=== PATIENT | male | born 1975 | race Caucasian/White ===

== ENCOUNTER 2017-12-30 16:13 | Emergency (ER) | payer BC, OTHER ==
[2017-12-30] MEDS ORDERED: LIDOCAINE 1% 20 ML MDV ONE (16:48)
--- NOTE | 2017-12-30 17:24 | ER ---
Nurse's Notes [facility] Name: Nikita Bartlett Age: 42 yrs Sex: Male : 1975 Arrival Date: 12/30/2017 Time: 16:17 Bed 8 Private MD: Romero Shelton B Diagnosis: Cutaneous abscess of right axilla Presentation: 12/30 16:21 Presenting complaint: Patient states: Abscess to right axilla for 4 days. Transition of care: patient was not received from another setting of care. Onset of symptoms was December 26, 2017. Risk Assessment: Do you want to hurt yourself or someone else? Patient reports no desire to harm self or others. Initial Sepsis Screen: Does the patient meet any 2 criteria? HR > 90 bpm. Yes. Care prior to arrival: None. 16:21 Method Of Arrival: Ambulatory 16:21 Acuity: OCTAVIO 3 aj 17:00 Initial Sepsis Screen: Does the patient have a suspected source of infection? Yes: Skin sg breakdown/wound If YES to both, name of provider notified: Buddy LARIOS. Triage Assessment: 16:23 General: Appears in no apparent distress. comfortable, Behavior is calm, cooperative, aj appropriate for age. Pain: Complains of pain in right axilla. Neuro: Level of Consciousness is awake, alert, obeys commands, Oriented to person, place, time, situation, Appropriate for age. Respiratory: Airway is patent Respiratory effort is even, unlabored, Respiratory pattern is regular, symmetrical. Derm: Skin is intact, is healthy with good turgor, Skin is pink, warm \T\ dry. normal, Abscess located on right axilla is golf ball sized, has no drainage, is red, is raised. Historical: - Allergies: 16:23 No Known Allergies; aj - Home Meds: 16:23 Janumet oral oral [Active]; aj - PMHx: 16:23 Diabetes - NIDDM; aj - PSHx: 16:23 None; aj - Immunization history:: Last tetanus immunization: < 5 years ago. - Social history:: Smoking status: Patient uses tobacco products, smokes one pack cigarettes per day. - Ebola Screening: : Patient negative for fever greater than or equal to 101.5 degrees Fahrenheit, and additional compatible Ebola Virus Disease symptoms Patient denies exposure to infectious person Patient denies travel to an Ebola-affected area in the 21 days before illness onset No symptoms or risks identified at this time. Screenin:00 Abuse screen: Denies threats or abuse. Denies injuries from another. Nutritional sg screening: No deficits noted. Tuberculosis screening: No symptoms or risk factors identified. Never had TB. Fall Risk None identified. Assessment: 17:00 General: Appears in no apparent distress. comfortable, well groomed, well developed, sg well nourished, Behavior is calm, cooperative, appropriate for age. Pain: Complains of pain in right axilla. Neuro: No deficits noted. Cardiovascular: Heart tones S1 S2 present Capillary refill is brisk in bilateral fingers Patient's skin is warm and dry. Chest pain is denied. Respiratory: Airway is patent Respiratory effort is even, unlabored, Respiratory pattern is regular, symmetrical, Breath sounds are clear. GI: No signs and/or symptoms were reported involving the gastrointestinal system. : No signs and/or symptoms were reported regarding the genitourinary system. EENT: No signs and/or symptoms were reported regarding the EENT system. Derm: Skin is pink, warm \T\ dry. Derm: Abscess located on right axilla is golf ball sized, has no drainage, is hot to touch, is red. Vital Signs: 16:23 BP 166 / 114; Pulse 113; Resp 20; Temp 99.3; Pulse Ox 98% on R/A; Weight 102.51 kg; aj Height 5 ft. 11 in. (180.34 cm); 17:50 BP 142 / 89; Pulse 90; Resp 18; Temp 99.0; Pulse Ox 99% on R/A; Pain 0/10; sg 16:23 Body Mass Index 31.52 (102.51 kg, 180.34 cm) aj ED Course: 16:17 Patient arrived in ED. sb2 16:17 Romero Shelton MD is Private Physician. sb2 16:22 Triage completed. aj 16:23 Arm band placed on left wrist. Patient placed in an exam room. aj 16:26 Buddy Gibson PA is PHCP. jr8 16:26 Kareem Mccann MD is Attending Physician. jr8 16:33 Salvador Whitney RN is Primary Nurse. sg 17:00 Patient has correct armband on for positive identification. Bed in low position. Call sg light in reach. Side rails up X2. Pulse ox on. NIBP on. Warm blanket given. Head of bed elevated. 17:30 Assist provider with I \T\ D: of an abscess on right axilla Set up I\T\D tray. Wound sg packed. iodoform gauze, Patient tolerated well. 17:50 Patient did not have IV access during this emergency room visit. sg Administered Medications: 17:30 Drug: Demerol 50 mg Route: IM; Site: right deltoid; sg 17:30 Drug: Phenergan 25 mg Route: IM; Site: right deltoid; sg 17:30 Drug: Bactrim (160 mg-800 mg (DS) 1 tablet Route: PO; sg Outcome: 17:24 Discharge ordered by MD. lopez 17:50 Discharged to home ambulatory, with family. 17:50 Condition: good 17:50 Discharge instructions given to patient, Instructed on discharge instructions, follow up and referral plans. medication usage, safety practices, wound care, Demonstrated understanding of instructions, follow-up care, medications, wound care, Prescriptions given X 2. 17:53 Patient left the ED. Signatures: Salvador Whitney RN RN Kenna Mcclain RN Kathi Mujica RN RN Buddy Gibson PA PA jrSaniya Mao2
--- NOTE | 2017-12-30 17:24 | EDPHYS ---
Physician Documentation [facility] Name: Nikita Bartlett Age: 42 yrs Sex: Male : 1975 Arrival Date: 12/30/2017 Time: 16:17 Bed 8 Private MD: Romero Shelton B ED Physician Kareem Mccann HPI: 12/30 17:35 This 42 yrs old Male presents to ER via Ambulatory with complaints of Abscess.jr8 17:35 The patient presents with an abscess of the right axilla. Description: The affected jr8 area is moderate sized, well demarcated, draining, erythematous, fluctuant, swollen, tense, warm. Onset: The symptoms/episode began/occurred gradually, 4 day(s) ago. Possible cause(s): unknown. Associated signs and symptoms: The patient has no apparent associated signs or symptoms. Modifying factors: the symptoms are alleviated by nothing, the symptoms are aggravated by pressure, squeezing the lesion and expressing the contents, touching. Severity of symptoms: At their worst the symptoms were moderate, in the emergency department the symptoms are unchanged. The patient has not experienced similar symptoms in the past. The patient has not recently seen a physician. Historical: - Allergies: 16:23 No Known Allergies; aj - Home Meds: 16:23 Janumet oral oral [Active]; aj - PMHx: 16:23 Diabetes - NIDDM; aj - PSHx: 16:23 None; aj - Immunization history:: Last tetanus immunization: < 5 years ago. - Social history:: Smoking status: Patient uses tobacco products, smokes one pack cigarettes per day. - Ebola Screening: : Patient negative for fever greater than or equal to 101.5 degrees Fahrenheit, and additional compatible Ebola Virus Disease symptoms Patient denies exposure to infectious person Patient denies travel to an Ebola-affected area in the 21 days before illness onset No symptoms or risks identified at this time. ROS: 17:35 Eyes: Negative for injury, pain, redness, and discharge, ENT: Negative for injury, jr8 pain, and discharge, Neck: Negative for injury, pain, and swelling, Cardiovascular: Negative for chest pain, palpitations, and edema, Respiratory: Negative for shortness of breath, cough, wheezing, and pleuritic chest pain, Abdomen/GI: Negative for abdominal pain, nausea, vomiting, diarrhea, and constipation, Back: Negative for injury and pain, MS/Extremity: Negative for injury and deformity, Neuro: Negative for headache, weakness, numbness, tingling, and seizure. 17:35 Skin: Positive for abscess, of the right axilla. Exam: 17:35 Eyes: Pupils equal round and reactive to light, extra-ocular motions intact. Lids and jr8 lashes normal. Conjunctiva and sclera are non-icteric and not injected. Cornea within normal limits. Periorbital areas with no swelling, redness, or edema. ENT: Nares patent. No nasal discharge, no septal abnormalities noted. Tympanic membranes are normal and external auditory canals are clear. Oropharynx with no redness, swelling, or masses, exudates, or evidence of obstruction, uvula midline. Mucous membranes moist. Neck: Trachea midline, no thyromegaly or masses palpated, and no cervical lymphadenopathy. Supple, full range of motion without nuchal rigidity, or vertebral point tenderness. No Meningismus. Cardiovascular: Regular rate and rhythm with a normal S1 and S2. No gallops, murmurs, or rubs. Normal PMI, no JVD. No pulse deficits. Respiratory: Lungs have equal breath sounds bilaterally, clear to auscultation and percussion. No rales, rhonchi or wheezes noted. No increased work of breathing, no retractions or nasal flaring. Abdomen/GI: Soft, non-tender, with normal bowel sounds. No distension or tympany. No guarding or rebound. No evidence of tenderness throughout. Back: No spinal tenderness. No costovertebral tenderness. Full range of motion. MS/ Extremity: Pulses equal, no cyanosis. Neurovascular intact. Full, normal range of motion. Neuro: Awake and alert, GCS 15, oriented to person, place, time, and situation. Cranial nerves II-XII grossly intact. Motor strength 5/5 in all extremities. Sensory grossly intact. Cerebellar exam normal. Normal gait. 17:35 Skin: abscess, that is moderate sized, of the right axilla, with drainage, that is purulent, with fluctuance, that is moderate. Vital Signs: 16:23 BP 166 / 114; Pulse 113; Resp 20; Temp 99.3; Pulse Ox 98% on R/A; Weight 102.51 kg; aj Height 5 ft. 11 in. (180.34 cm); 17:50 BP 142 / 89; Pulse 90; Resp 18; Temp 99.0; Pulse Ox 99% on R/A; Pain 0/10; sg 16:23 Body Mass Index 31.52 (102.51 kg, 180.34 cm) aj Procedures: 17:23 I \T\ D: Incision and drainage was performed for an abscess of the right axilla. Prepped jr8 with Betadine, Anesthetized with 8 ml's 1% Lidocaine. Incised with #11 blade. Drained large amount purulent fluid. bloody fluid. Loculations removed. Cultures obtained. Abscess cavity explored. Packed with iodoform gauze, Dressing: sterile 4x4 gauze, the patient tolerated the procedure well. MDM: 16:26 Patient medically screened. [facility] 17:23 Data reviewed: vital signs, nurses notes, lab test result(s), and as a result, I will jr8 discharge patient. Data interpreted: Pulse oximetry: on room air is 98 %. Interpretation: normal. Counseling: I had a detailed discussion with the patient and/or guardian regarding: the historical points, exam findings, and any diagnostic results supporting the discharge/admit diagnosis, lab results, the need for outpatient follow up, a family practitioner, to return to the emergency department if symptoms worsen or persist or if there are any questions or concerns that arise at home. Administered Medications: 17:30 Drug: Demerol 50 mg Route: IM; Site: right deltoid; sg 17:30 Drug: Phenergan 25 mg Route: IM; Site: right deltoid; sg 17:30 Drug: Bactrim (160 mg-800 mg (DS) 1 tablet Route: PO; sg Disposition: 12/31 06:55 Co-signature as Attending Physician, Kareem Mccann MD I agree with the assessment and nishant plan of care. Disposition: 12/30/17 17:24 Discharged to Home. Impression: Cutaneous abscess of right axilla. - Condition is Stable. - Discharge Instructions: Abscess, Incision and Drainage. - Prescriptions for Tylenol- Codeine #3 300-30 mg Oral Tablet - take 2 tablet by ORAL route every 6 hours As needed; 30 tablet. Bactrim DS 800- 160 mg Oral Tablet - take 1 tablet by ORAL route every 12 hours for 10 days; 20 tablet. - Medication Reconciliation Form, Thank You Letter, Antibiotic Education, Prescription Opioid Use form. - Work release form (12/30/17 17:53). jr8 - Follow up: Emergency Department; When: 48 Hours; Reason: Wound Recheck, Recheck today's complaints, Continuance of care, Re-evaluation by your physician. - Problem is new. - Symptoms have improved. Signatures: Dispatcher [employer] EDMS Salvador Whitney RN RN sg Myers, Amanda, RN RN aj Anderson, Corey, MD MD cha Smirch, Shelby, RN RN ss Roszak, Josh, PA PA jr8 Corrections: (The following items were deleted from the chart) 12/30 17:53 17:24 12/30/2017 17:24 Discharged to Home. Impression: Cutaneous abscess of right ss axilla. Condition is Stable. Forms are Medication Reconciliation Form, Thank You Letter, Antibiotic Education, Prescription Opioid Use. Follow up: Emergency Department; When: 48 Hours; Reason: Wound Recheck, Recheck today's complaints, Continuance of care, Re-evaluation by your physician. Problem is new. Symptoms have improved. jr8
[2017-12-30] MEDS ORDERED: PROMETHAZINE 25 MG/ML VIAL ONE (17:28)
[2017-12-30] MEDS ORDERED: MEPERIDINE HCL 50 MG/ML AMP ONE (17:28)
[2017-12-30] MEDS ORDERED: SMZ./TMP. 800/160 MG TABLET ONE (17:29)
== END 2017-12-30 17:53 | disposition home or self-care (01) ==
LOC: ER 16:13
PROC: 0J9D0ZZ Drainage of Right Upper Arm Subcutaneous Tissue and Fascia, Open Approach (ICD-10-PCS; principal; 2017-12-30)
DX: L02.411 Cutaneous abscess of right axilla (principal); E11.9 Type 2 diabetes mellitus without complications; Z79.84 Long term (current) use of oral hypoglycemic drugs; F17.210 Nicotine dependence, cigarettes, uncomplicated
CPT/HCPCS: 96372; 99284; J2175; J2550

== ENCOUNTER 2018-01-02 10:43 | Emergency (ER) | payer BC ==
--- NOTE | 2018-01-02 11:13 | ER ---
Nurse's Notes [facility] Name: Nikita Bartlett Age: 42 yrs Sex: Male : 1975 Arrival Date: 01/02/2018 Time: 10:47 Bed 19 Private MD: Romero Shelton B Diagnosis: Cutaneous abscess of right axilla Presentation: 01/02 10:53 Presenting complaint: Patient states: "I had an abscess drained a few days ago under my lk1 right arm and I am supposed to be here today to have it checked and repacked.". Transition of care: patient was not received from another setting of care. Onset of symptoms is unknown. Risk Assessment: Do you want to hurt yourself or someone else? Patient reports no desire to harm self or others. Initial Sepsis Screen: Does the patient meet any 2 criteria? No. Patient's initial sepsis screen is negative. Does the patient have a suspected source of infection? Yes: Skin breakdown/wound. Care prior to arrival: None. 10:53 Method Of Arrival: Ambulatory lk1 10:53 Acuity: OCTAVIO 4 lk1 Historical: - Allergies: 10:54 No Known Allergies; lk1 - PMHx: 10:54 Diabetes - NIDDM; Hypertension; lk1 - PSHx: 10:54 None; lk1 - Immunization history:: Adult Immunizations up to date. - Social history:: Smoking status: Patient uses tobacco products, smokes one pack cigarettes per day. - Ebola Screening: : Patient negative for fever greater than or equal to 101.5 degrees Fahrenheit, and additional compatible Ebola Virus Disease symptoms Patient denies exposure to infectious person Patient denies travel to an Ebola-affected area in the 21 days before illness onset No symptoms or risks identified at this time. Screenin:50 Abuse screen: Denies threats or abuse. Denies injuries from another. Nutritional hb screening: No deficits noted. Tuberculosis screening: No symptoms or risk factors identified. Fall Risk None identified. Assessment: 10:50 General: Appears in no apparent distress. Behavior is calm, cooperative. Pain: Pain hb currently is 3 out of 10 on a pain scale. Neuro: Level of Consciousness is awake, alert, obeys commands, Oriented to person, place, time, situation. Cardiovascular: Capillary refill < 3 seconds Patient's skin is warm and dry. Respiratory: Airway is patent Trachea midline Respiratory effort is even, unlabored, Respiratory pattern is regular, symmetrical. Derm: Abscess located on right axilla. Vital Signs: 10:54 BP 177 / 119; Pulse 93; Resp 16; Temp 98.3(TE); Pulse Ox 98% on R/A; Weight 102.51 kg lk1 (R); Height 5 ft. 11 in. (180.34 cm) (R); Pain 3/10; 10:54 Body Mass Index 31.52 (102.51 kg, 180.34 cm) lk1 ED Course: 10:47 Patient arrived in ED. mr 10:47 Romero Shelton MD is Private Physician. mr 10:50 Jia Sharma, RN is Primary Nurse. hb 10:50 Patient has correct armband on for positive identification. Bed in low position. Call hb light in reach. Side rails up X 1. 10:53 Triage completed. lk1 10:55 Buddy Gibson PA is PHCP. jr8 10:55 Paulino Barth MD is Attending Physician. jr8 10:55 Arm band placed on right wrist. lk1 11:30 No provider procedures requiring assistance completed. Patient did not have IV access hb during this emergency room visit. Administered Medications: No medications were administered Outcome: 11:13 Discharge ordered by . jr8 11:30 Discharged to home ambulatory. hb 11:30 Condition: stable 11:30 Discharge instructions given to patient, Instructed on discharge instructions, follow up and referral plans. medication usage, wound care, Demonstrated understanding of instructions, follow-up care, medications, wound care. 11:32 Patient left the ED. hb Signatures: Mitzi Cortez mr Buddy Gibson PA PA jr8 Darby Murillo RN RN lk1 Jia Sharma, EMILIE RN hb Corrections: (The following items were deleted from the chart) 11:32 10:50 Derm: Abscess located on buttocks hb hb
--- NOTE | 2018-01-02 11:13 | EDPHYS ---
Physician Documentation [facility] Name: Nikita Bartlett Age: 42 yrs Sex: Male : 1975 Arrival Date: 01/02/2018 Time: 10:47 Bed 19 Private MD: Romero Shelton B ED Physician Paulino Barth HPI: 01/02 11:06 This 42 yrs old Male presents to ER via Ambulatory with complaints of Abscess jr8 Recheck. 11:06 Patient presents to ED for recheck of: abscess. The affected area is on the right jr8 axilla. Previous treatment: The patient was initially treated 2 day(s) ago. Progress: The patient reports decreased drainage, pain, redness, swelling. The patient has experienced similar episodes in the past, a few times. The patient has been recently seen by a physician:. Historical: - Allergies: 10:54 No Known Allergies; lk1 - PMHx: 10:54 Diabetes - NIDDM; Hypertension; lk1 - PSHx: 10:54 None; lk1 - Immunization history:: Adult Immunizations up to date. - Social history:: Smoking status: Patient uses tobacco products, smokes one pack cigarettes per day. - Ebola Screening: : Patient negative for fever greater than or equal to 101.5 degrees Fahrenheit, and additional compatible Ebola Virus Disease symptoms Patient denies exposure to infectious person Patient denies travel to an Ebola-affected area in the 21 days before illness onset No symptoms or risks identified at this time. ROS: 11:06 Eyes: Negative for injury, pain, redness, and discharge, ENT: Negative for injury, jr8 pain, and discharge, Neck: Negative for injury, pain, and swelling, Cardiovascular: Negative for chest pain, palpitations, and edema, Respiratory: Negative for shortness of breath, cough, wheezing, and pleuritic chest pain, Abdomen/GI: Negative for abdominal pain, nausea, vomiting, diarrhea, and constipation, Back: Negative for injury and pain, MS/Extremity: Negative for injury and deformity, Neuro: Negative for headache, weakness, numbness, tingling, and seizure. Exam: 11:06 Chest/axilla: Normal chest wall appearance and motion. Nontender with no deformity. jr8 No lesions are appreciated. Cardiovascular: Regular rate and rhythm with a normal S1 and S2. No gallops, murmurs, or rubs. Normal PMI, no JVD. No pulse deficits. Respiratory: Lungs have equal breath sounds bilaterally, clear to auscultation and percussion. No rales, rhonchi or wheezes noted. No increased work of breathing, no retractions or nasal flaring. Abdomen/GI: Soft, non-tender, with normal bowel sounds. No distension or tympany. No guarding or rebound. No evidence of tenderness throughout. Back: No spinal tenderness. No costovertebral tenderness. Full range of motion. MS/ Extremity: Pulses equal, no cyanosis. Neurovascular intact. Full, normal range of motion. Neuro: Awake and alert, GCS 15, oriented to person, place, time, and situation. Cranial nerves II-XII grossly intact. Motor strength 5/5 in all extremities. Sensory grossly intact. Cerebellar exam normal. Normal gait. 11:06 Skin: Wound recheck: Abscess: the wound has improved, decreased discharge, decreased erythema, decreased pain, decreased swelling. Vital Signs: 10:54 BP 177 / 119; Pulse 93; Resp 16; Temp 98.3(TE); Pulse Ox 98% on R/A; Weight 102.51 kg lk1 (R); Height 5 ft. 11 in. (180.34 cm) (R); Pain 3/10; 10:54 Body Mass Index 31.52 (102.51 kg, 180.34 cm) lk1 MDM: 10:55 Patient medically screened. 8 11:06 Data reviewed: vital signs, nurses notes, and as a result, I will discharge patient. jr8 Data interpreted: Pulse oximetry: on room air is 98 %. Interpretation: normal. Counseling: I had a detailed discussion with the patient and/or guardian regarding: the historical points, exam findings, and any diagnostic results supporting the discharge/admit diagnosis, the need for outpatient follow up, a family practitioner, to return to the emergency department if symptoms worsen or persist or if there are any questions or concerns that arise at home. ED course: Patient repacked but with less packing. Will want to remove in another 48 hours. To continue on antibiotics. Patient good with this and will follow up . Administered Medications: No medications were administered Disposition: 11:46 Co-signature as Attending Physician, Paulino Barth MD I agree with the assessment and kdr plan of care. Disposition: 01/02/18 11:13 Discharged to Home. Impression: Cutaneous abscess of right axilla. - Condition is Stable. - Discharge Instructions: Abscess. - Medication Reconciliation Form, Thank You Letter, Antibiotic Education, Prescription Opioid Use form. - Follow up: Emergency Department; When: 48 Hours; Reason: Wound Recheck, Recheck today's complaints, Continuance of care, Re-evaluation by your physician. - Problem is new. - Symptoms have improved. Signatures: Paulino Barth MD MD [facility] Buddy Gibson PA PA jr8 Darby Murillo RN RN lk1 Jia Sharma RN RN Corrections: (The following items were deleted from the chart) 11:32 11:13 01/02/2018 11:13 Discharged to Home. Impression: Cutaneous abscess of right hb axilla. Condition is Stable. Forms are Medication Reconciliation Form, Thank You Letter, Antibiotic Education, Prescription Opioid Use. Follow up: Emergency Department; When: 48 Hours; Reason: Wound Recheck, Recheck today's complaints, Continuance of care, Re-evaluation by your physician. Problem is new. Symptoms have improved. jr8
== END 2018-01-02 11:32 | disposition home or self-care (01) ==
LOC: ER 10:43
DX: L02.411 Cutaneous abscess of right axilla (principal)
CPT/HCPCS: 99281

== ENCOUNTER 2018-01-05 17:40 | Emergency (ER) | payer BC ==
--- NOTE | 2018-01-05 18:39 | ER ---
Nurse's Notes [facility] Name: Nikita Bartlett Age: 42 yrs Sex: Male : 1975 Arrival Date: 01/05/2018 Time: 17:42 Bed 5 Private MD: Devan Chawla S Diagnosis: Cutaneous abscess of right axilla Presentation: 01/05 17:49 Presenting complaint: Patient states: "I need to follow up on a drained abscess in my lk1 right armpit.". Transition of care: patient was not received from another setting of care. Onset of symptoms was December 29, 2017. Risk Assessment: Do you want to hurt yourself or someone else? Patient reports no desire to harm self or others. Initial Sepsis Screen: Does the patient meet any 2 criteria? No. Patient's initial sepsis screen is negative. Does the patient have a suspected source of infection? No. Patient's initial sepsis screen is negative. Care prior to arrival: None. 17:49 Method Of Arrival: Ambulatory lk1 17:49 Acuity: OCTAVIO 4 lk1 Historical: - Allergies: 17:50 No Known Drug Allergies; lk1 - PMHx: 17:50 Diabetes - NIDDM; Hypertension; lk1 - PSHx: 17:50 None; lk1 - Immunization history:: Adult Immunizations up to date. - Social history:: Smoking status: Patient/guardian denies using tobacco. - Ebola Screening: : No symptoms or risks identified at this time. Screenin:10 Abuse screen: Denies threats or abuse. Denies injuries from another. Nutritional sv screening: No deficits noted. Tuberculosis screening: No symptoms or risk factors identified. Fall Risk None identified. Assessment: 18:10 General: Appears in no apparent distress. uncomfortable, Behavior is calm, cooperative, sv appropriate for age. Pain: Denies pain. Neuro: Level of Consciousness is awake, alert, obeys commands, Oriented to person, place, time, situation, Moves all extremities. Full function Gait is steady. Respiratory: Respiratory effort is even, unlabored, Respiratory pattern is regular, symmetrical. Derm: Skin is pink, warm \\T\\ dry. Abscess located on right axilla is red, Abscess was already previously lanced by our ED. Pt here for a recheck. Musculoskeletal: Range of motion: intact in all extremities. 18:25 Reassessment: Abscess being packed by Buddy LARIOS. sv Vital Signs: 17:51 BP 176 / 104; Pulse 79; Resp 16; Temp 99.0(TE); Pulse Ox 97% ; Weight 102.51 kg (M); lk1 Height 5 ft. 11 in. (180.34 cm) (R); Pain 0/10; 17:51 Body Mass Index 31.52 (102.51 kg, 180.34 cm) lk1 ED Course: 17:42 Patient arrived in ED. sb2 17:42 Devan Chawla MD is Private Physician. sb2 17:50 Triage completed. lk1 17:53 Arm band placed on left wrist. lk1 18:10 Patient has correct armband on for positive identification. Bed in low position. Adult sv w/ patient. Door closed. Head of bed elevated. 18:12 Buddy Gibson PA is PHCP. jr8 18:12 Elías Avery MD is Attending Physician. jr8 18:22 Lian Dent, EMILIE is Primary Nurse. sv 18:25 No provider procedures requiring assistance completed. sv 18:38 Gunner Saenz MD is Referral Physician. jr8 18:46 Patient did not have IV access during this emergency room visit. sv Administered Medications: No medications were administered Outcome: 18:39 Discharge ordered by . jr8 18:47 Discharged to home ambulatory, with family. sv 18:47 Condition: stable 18:47 Discharge instructions given to patient, Instructed on discharge instructions, follow up and referral plans. medication usage, Demonstrated understanding of instructions, follow-up care, medications, Prescriptions given X 1. 18:47 Patient left the ED. sv Signatures: Lian Dent, RN RN Buddy Gibson PA PA jr8 Darby Murillo RN RN lk1 Saniya Poole sb2
--- NOTE | 2018-01-05 18:39 | EDPHYS ---
Physician Documentation [facility] Name: Nikita Bartlett Age: 42 yrs Sex: Male : 1975 Arrival Date: 01/05/2018 Time: 17:42 Bed 5 Private MD: Devan Chawla S ED Physician Elías Avery HPI: 01/05 18:27 This 42 yrs old Male presents to ER via Ambulatory with complaints of Abscess jr8 Recheck. 18:27 The affected area is on the right axilla. Progress: The patient reports decreased pain, jr8 swelling. The patient has not experienced similar symptoms in the past. The patient has been recently seen by a physician:. Patient treated for abscess here and has been coming back for packing. Noticed today had more bloody discharge and mild exudate again. Erythema has mildly decreased along with inflammation but not as well as we would like to see . Historical: - Allergies: 17:50 No Known Drug Allergies; lk1 - PMHx: 17:50 Diabetes - NIDDM; Hypertension; lk1 - PSHx: 17:50 None; lk1 - Immunization history:: Adult Immunizations up to date. - Social history:: Smoking status: Patient/guardian denies using tobacco. - Ebola Screening: : No symptoms or risks identified at this time. ROS: 18:27 Eyes: Negative for injury, pain, redness, and discharge, ENT: Negative for injury, jr8 pain, and discharge, Neck: Negative for injury, pain, and swelling, Cardiovascular: Negative for chest pain, palpitations, and edema, Respiratory: Negative for shortness of breath, cough, wheezing, and pleuritic chest pain, Abdomen/GI: Negative for abdominal pain, nausea, vomiting, diarrhea, and constipation, Back: Negative for injury and pain, MS/Extremity: Negative for injury and deformity, Skin: Negative for injury, rash, and discoloration, Neuro: Negative for headache, weakness, numbness, tingling, and seizure. Exam: 18:27 Cardiovascular: Regular rate and rhythm with a normal S1 and S2. No gallops, murmurs, jr8 or rubs. Normal PMI, no JVD. No pulse deficits. Respiratory: Lungs have equal breath sounds bilaterally, clear to auscultation and percussion. No rales, rhonchi or wheezes noted. No increased work of breathing, no retractions or nasal flaring. MS/ Extremity: Pulses equal, no cyanosis. Neurovascular intact. Full, normal range of motion. Neuro: Awake and alert, GCS 15, oriented to person, place, time, and situation. Cranial nerves II-XII grossly intact. Motor strength 5/5 in all extremities. Sensory grossly intact. Cerebellar exam normal. Normal gait. 18:27 Skin: Patient has approximately 4 cm x 2.5 cm indurated red region. Serosanguinous fluid noted from wound. Discharge seen on packing but no excess discharge expressed with palpation . Vital Signs: 17:51 BP 176 / 104; Pulse 79; Resp 16; Temp 99.0(TE); Pulse Ox 97% ; Weight 102.51 kg (M); lk1 Height 5 ft. 11 in. (180.34 cm) (R); Pain 0/10; 17:51 Body Mass Index 31.52 (102.51 kg, 180.34 cm) lk1 Procedures: 18:39 Performed Wound packing. Previously abscessed wound packed with sterile iodoform gauze. jr8 MDM: 18:12 Patient medically screened. jr8 18:27 Data reviewed: vital signs, nurses notes, and as a result, I will discharge patient. jr8 Data interpreted: Pulse oximetry: on room air is 97 %. Interpretation: normal. Counseling: I had a detailed discussion with the patient and/or guardian regarding: the historical points, exam findings, and any diagnostic results supporting the discharge/admit diagnosis, the need for outpatient follow up, a general surgeon, to return to the emergency department if symptoms worsen or persist or if there are any questions or concerns that arise at home. 18:27 ED course: At this point recommended f/u with General surgery for reevaluation and jr8 possible debridement again since wound progress has regressed. Will add clindamycin to regimen. Family good with this and will call Dr. Saenz since they have seen him in past . Administered Medications: No medications were administered Disposition: 01/06 10:11 Co-signature as Attending Physician, Elías Avery MD. Disposition: 01/05/18 18:39 Discharged to Home. Impression: Cutaneous abscess of right axilla. - Condition is Stable. - Discharge Instructions: Abscess, Incision and Drainage. - Prescriptions for Clindamycin HCl 300 mg Oral Capsule - take 1 capsule by ORAL route every 6 hours for 10 days; 40 capsule. - Medication Reconciliation Form, Thank You Letter, Antibiotic Education, Prescription Opioid Use form. - Work release form (01/05/18 20:17). jr8 - Follow up: Gunner Saenz MD; When: Tomorrow; Reason: Recheck today's complaints, Continuance of care, Re-evaluation by your physician. - Problem is new. - Symptoms have improved. Signatures: Lian Dent RN RN Buddy Lopes PA PA jr8 Darby Murillo RN RN lk1 Elías Avery MD MD gs Corrections: (The following items were deleted from the chart) 01/05 18:47 18:39 01/05/2018 18:39 Discharged to Home. Impression: Cutaneous abscess of right sv axilla. Condition is Stable. Forms are Medication Reconciliation Form, Thank You Letter, Antibiotic Education, Prescription Opioid Use. Follow up: Dr. Gunner Saenz; When: Tomorrow; Reason: Recheck today's complaints, Continuance of care, Re-evaluation by your physician. Problem is new. Symptoms have improved. jr8
== END 2018-01-05 18:47 | disposition home or self-care (01) ==
LOC: ER 17:40
DX: Z48.01 Encounter for change or removal of surgical wound dressing (principal); I10 Essential (primary) hypertension
CPT/HCPCS: 99282

== ENCOUNTER 2018-01-09 08:56 | Day surgery (SDC) | payer BC ==
[2018-01-07 11:47] LABS: Absolute Lymphocytes (CBC) 1.7 K/uL (0.7-4.9); Absolute Monocytes 0.6 K/uL (0.1-1.3); Absolute Neutrophil 7.8 K/uL (1.8-8.0); Basophils % 0.7 % (0-1.3); Hematocrit 39.2 % (39.6-49.0); Lymphocytes % 16.1 % (15.3-44.8); MCH 27.2 pg (27.0-35.0); MPV 7.8 fL (7.6-11.3); Monocytes % 5.3 % (3.3-12.3); RBC Red Blood Cell Count 4.67 M/uL (4.33-5.43)
--- NOTE | 2018-01-07 12:25 | RAD REPORT ---
EXAM DESCRIPTION: Tejal Tam (2 Views)01/07/2018 12:06 pm CLINICAL HISTORY: Hypertension/preop COMPARISON: 2013 FINDINGS: The lungs appear clear of acute infiltrate. The heart is normal size IMPRESSION: No acute abnormalities displayed
--- NOTE | 2018-01-07 15:34 | EKG ---
Test Date: 2018-01-07 Test Time: 11:24:58 Senior Construction Project Manager: SERGIO MEASUREMENT RESULTS: Intervals: Rate: 87 WA: 152 QRSD: 84 QT: 352 QTc: 423 [place]: P: 51 WA: 152 QRS: -17 T: 31 INTERPRETIVE STATEMENTS: Normal sinus rhythm Minimal voltage criteria for LVH, may be normal variant Borderline ECG Compared to ECG 06/30/2014 16:09:22 Left ventricular hypertrophy now present Sinus tachycardia no longer present Electronically Signed On 01-07-18 15:33:27 CDT by Michel Lyles
[2018-01-09] MEDS ORDERED: NA CHLORIDE 0.9% 1,000 ML ONE (09:07)
[2018-01-09] MEDS ORDERED: CEFAZOLIN/SWI 1gm 1 GM/10 ML SYR ONE (09:08)
[2018-01-09] MEDS ORDERED: INSULIN -REGULAR HUMAN 50 UNIT/0.5 ML ML ONE ×2 (09:38→10:28)
[2018-01-09] MEDS ORDERED: BUPIVACAINE 0.5% PF 10 ML VIAL ONE (09:41)
[2018-01-09] MEDS: LABETALOL HCL 100 MG/20 ML ONE ×2 (09:41→10:11)
[2018-01-09] MEDS ORDERED: PROPOFOL 200 MG/20 ML VIAL IV ONE (09:54)
[2018-01-09] MEDS ORDERED: LIDOCAINE 2% MPF 5 ML VIAL ONE (09:55)
[2018-01-09] MEDS ORDERED: MIDAZOLAM HCL 2 MG/2 ML INJ ONE (09:55)
[2018-01-09] MEDS ORDERED: FENTANYL CITR 100 MCG/2 ML ONE (09:56)
[2018-01-09] MEDS ORDERED: ONDANSETRON HCL 40 MG/20 ML VIAL ONE (09:56)
--- NOTE | 2018-01-09 11:39 | OP ---
Date of Procedure: 01/09/2018 Surgeon: Gunner Saenz MD Preoperative Diagnosis: Abscess and cellulitis, right axilla. Postoperative Diagnosis: Abscess and cellulitis, right axilla. Procedure: Incision, drainage and debridement right axillary abscess. Estimated Blood Loss: Minimal. Specimen: Pus and necrotic tissue. Findings: As above. Anesthesia: General. Complications: None. Disposition: The patient tolerated the procedure in stable condition and taken to the Recovery in go od general condition. Operative Note: The patient was brought to the OR and placed in supine position. General anesthesia was begun. The patient was prepped and draped in usual sterile fashion. Marcaine 0.5% infiltrated locally. A 15-blade was used to make an ellipse of skin approximately 5 x 1 cm to excise the necroti c tissue that was present in the right axilla. Subcutaneous tissue was divided. Pus encountered and cultured. Wound irrigated and necrotic tissue debrided. Bleeding controlled with cautery. Wet-to- dry normal saline dressing change applied. The patient tolerated the procedure in stable condition a nd taken to the Recovery in good general condition. Discharge Note: The patient will go to Day Surgery and home when stable. Disposition: Home. Condition: Stable. Discharge Instructions: Resume home medications and diet. Activity as tolerated. No heavy lifting. Remove outer dressing in 2 days. Shower. Keep wound clean, dry. Wet-to-dry normal saline dressin g changes daily. The patient has antibiotics. Tylenol No. 3 one tablet p.o. q.4 p.r.n. pain. Caleb li in my office in 2 weeks. Call for appointment. ISABEL/EVITA Voice ID: [id number] Report ID: [id number]
== END 2018-01-09 12:18 | disposition home or self-care (01) ==
LOC: OR 08:56
PROVIDERS: ATTEND Surgery
PROC: 0J9D0ZZ Drainage of Right Upper Arm Subcutaneous Tissue and Fascia, Open Approach (ICD-10-PCS; principal; 2018-01-09 10:30)
DX: L02.411 Cutaneous abscess of right axilla (principal); E11.9 Type 2 diabetes mellitus without complications; I10 Essential (primary) hypertension; Z72.0 Tobacco use
CPT/HCPCS: 36415; 71046; 80048; 82962; 85025; 87070; 87075; 87205; 88304; 88305; 93005; J0690; J2250; J2405; J3010; J7030

== ENCOUNTER 2018-09-20 18:08 | Inpatient (IN) | payer BC ==
[2018-09-20] MEDS ORDERED: NA CHLORIDE 0.9% 1,000 ML ONE (21:08)
[2018-09-20] MEDS ORDERED: PIPER/TAZO/NS 3.375gm 3.375 GM/100 ML BAG ONE (21:08)
[2018-09-20 21:25] LABS: Absolute Lymphocytes (CBC) 0.9 K/uL (0.7-4.9); Absolute Monocytes 1.2 K/uL (0.1-1.3); Absolute Neutrophil 18.3 K/uL (1.8-8.0); Basophils % 0.5 % (0-1.3); Eosinophils % 1.2 % (0-4.4); Hematocrit 30.3 % (39.6-49.0); Lymphocytes % 4.6 % (15.3-44.8); MPV 7.9 fL (7.6-11.3); Monocytes % 5.6 % (3.3-12.3); RBC Red Blood Cell Count 3.51 M/uL (4.33-5.43)
[2018-09-20 21:28] LABS: Protime INR 1.23
--- NOTE | 2018-09-20 22:00 | RAD REPORT ---
EXAM DESCRIPTION: RAD - Chest Single View - 09/20/2018 9:34 pm CLINICAL HISTORY: foot infection Chest pain. COMPARISON: Chest Pa And Lat (2 Views) dated 01/07/2018; CHEST SINGLE VIEW dated 06/30/2014 FINDINGS: Portable technique limits examination quality. The lungs are underinflated resulting in vascular crowding. The heart is upper limit of normal in siz e. No displaced fractures.
--- NOTE | 2018-09-20 22:02 | RAD REPORT ---
EXAM DESCRIPTION: RAD - Foot Left 3 View - 09/20/2018 9:34 pm CLINICAL HISTORY: SWELLING Pain and swelling to foot. COMPARISON: No comparisons FINDINGS: A focal soft tissue ulceration is seen at the level of the fifth metacarpal head along the plantar aspect of the forefoot. Mild soft tissue gas is seen in the region. There is no radiographic evidence of osteomyelitis. Vascular calcifications are noted. No radiopaque foreign body. No fractur e or dislocation. IMPRESSION: Soft tissue ulceration along the lateral margin of the forefoot along the plantar aspect . No osteomyelitis findings are seen. No radiopaque foreign body identified.
--- NOTE | 2018-09-20 22:03 | ER ---
Nurse's Notes [facility] Name: Nikita Bartlett Age: 42 yrs Sex: Male : 1975 Arrival Date: 09/20/2018 Time: 18:09 Bed 10 Private MD: VINH VEGA Diagnosis: Personal history of diabetic foot ulcer;CELLULITIS AND ABSCESS OF FOOT Presentation: 09/20 18:31 Presenting complaint: Patient states: wound to left foot that he noticed yesterday, pt aa5 states "It started draining". Transition of care: patient was not received from another setting of care. Onset of symptoms was September 2018. Risk Assessment: Do you want to hurt yourself or someone else? Patient reports no desire to harm self or others. Initial Sepsis Screen: Does the patient meet any 2 criteria? No. Patient's initial sepsis screen is negative. Does the patient have a suspected source of infection? No. Patient's initial sepsis screen is negative. Care prior to arrival: None. 18:31 Method Of Arrival: Ambulatory aa5 18:31 Acuity: OCTAVIO 4 aa5 Historical: - Allergies: 18:32 No Known Allergies; aa5 - Home Meds: 18:35 Aspirin Oral [Active]; hydrochlorothiazide 25 mg Oral tab [Active]; amlodipine oral aa5 [Active]; Tradjenta 5 mg oral tab [Active]; atorvastatin oral oral [Active]; olmesartan oral oral [Active]; Glimepiride Oral [Active]; - PMHx: 18:32 Diabetes - NIDDM; Hypertension; Enlarged heart; "Leaking heart valve"; aa5 - PSHx: 18:32 None; aa5 - Immunization history:: Flu vaccine is not up to date. - Social history:: Smoking status: Patient uses tobacco products, smokes one pack cigarettes per day. chewing tobacco. - Ebola Screening: : No symptoms or risks identified at this time. Screenin:07 Abuse screen: Denies threats or abuse. Nutritional screening: No deficits noted. fc Tuberculosis screening: No symptoms or risk factors identified. Fall Risk None identified. Assessment: 20:07 General: Appears comfortable, obese, Behavior is appropriate for age, agitated. Pain: fc Complains of pain in left foot Pain currently is 7 out of 10 on a pain scale. Quality of pain is described as aching, throbbing, Is continuous, Aggravated by increased activity, repositioning, weight bearing. Neuro: Level of Consciousness is awake, alert, obeys commands, Oriented to person, place, time, situation, Appropriate for age. Cardiovascular: Edema is 3+ to right foot and left foot. Respiratory: No deficits noted. GI: No deficits noted. : No deficits noted. EENT: No deficits noted. Derm: Skin is pink, warm \\T\\ dry. Open wound to left foot outer edge with scab. Also old callus to left outer bottom of foot. Musculoskeletal: Circulation, motion, and sensation intact. Capillary refill < 3 seconds, Range of motion: intact in all extremities. 21:10 Reassessment: No changes from previously documented assessment. Patient and/or family fc updated on plan of care and expected duration. Pain level reassessed. Patient is alert, oriented x 3, equal unlabored respirations, skin warm/dry/pink. Medications given as ordered. 22:10 Reassessment: No changes from previously documented assessment. Patient and/or family fc updated on plan of care and expected duration. Pain level reassessed. Patient is alert, oriented x 3, equal unlabored respirations, skin warm/dry/pink. Dr Nguyen in to see and talk with pt. Vital Signs: 18:33 BP 165 / 95; Pulse 105; Resp 16 S; Temp 99.0(TE); Pulse Ox 98% on R/A; Weight 113.4 kg aa5 (R); Height 5 ft. 11 in. (180.34 cm) (R); Pain 3/10; 22:27 BP 157 / 94 LA Sitting (auto/lg); Pulse 102; Resp 18 S; Temp 99.2(O); Pulse Ox 100% on vd2 R/A; 18:33 Body Mass Index 34.87 (113.40 kg, 180.34 cm) aa5 ED Course: 18:09 Patient arrived in ED. rg4 18:09 VINH VEGA is Private Physician. rg4 18:31 Arm band placed on. aa5 18:32 Triage completed. aa5 19:13 Leslie Fern[facility]-C [facility]. snw 19:13 Richard Hester MD is Attending Physician. snw 20:07 Patient has correct armband on for positive identification. Bed in low position. Call fc light in reach. 20:07 Wound culture swab sent to lab. fc 20:43 Initial lab(s) drawn, by ga, sent to lab. Inserted saline lock: 20 gauge in right vd2 antecubital area, using aseptic technique. Blood collected. 20:43 First set of blood cultures drawn by ga. vd2 21:34 Chest Single View XRAY In Process Unspecified. EDMS 21:34 Foot Left 3 View XRAY In Process Unspecified. EDMS 22:01 Ani Nguyen MD is Hospitalizing Provider. snw 23:09 No provider procedures requiring assistance completed. Patient admitted, IV remains in place. Administered Medications: 21:08 Drug: Zosyn 3.375 grams Route: IVPB; Infused Over: 60 mins; Site: right antecubital; 23:12 Follow up: Response: No adverse reaction; No change in condition; IV Status: Completed fc infusion; IV Intake: 100ml 21:08 Drug: NS 0.9% 1000 ml Route: IV; Rate: 125 ml/hr; Site: right antecubital; fc 23:11 Follow up: Response: No adverse reaction; Marked relief of symptoms; IV Status: fc Infusion continued upon admission; IV Intake: 250ml Point of Care Testing: Blood Glucose: 21:00 Blood Glucose: 197 mg/dL; vd2 Ranges: Intake: 23:11 IV: 250ml; Total: 250ml. fc 23:12 IV: 100ml; Total: 350ml. Outcome: 22:02 Decision to Hospitalize by Provider. snw 23:09 Admitted to Med/surg accompanied by [facility], via wheelchair, room 212, with chart, Report called to Pérez PHAN 23:09 Condition: good 23:09 Discharge instructions given to patient, family, Instructed on the need for admit, Demonstrated understanding of instructions. 23:31 Patient left the ED. Signatures: Dispatcher [employer] EDLeslie Berkowitz, CRAB CATCHER-C CRAB CATCHER-Ayleen Escalante RN RN Dari Keys RN RN aa5 [place] [id number] Lucie Mckenzie4
--- NOTE | 2018-09-20 22:03 | EDPHYS ---
Physician Documentation [facility] Name: Nikita Bartlett Age: 42 yrs Sex: Male : 1975 Arrival Date: 09/20/2018 Time: 18:09 Bed 10 Private MD: VINH VEGA ED Physician Richard Hester HPI: 09/20 20:15 This 42 yrs old Male presents to ER via Ambulatory with complaints of Abscess.snw 20:15 The patient presents with an abscess of the left foot. Description: draining, snw erythematous, swollen. Onset: The symptoms/episode began/occurred suddenly, 2 day(s) ago, and became persistent. Possible cause(s): unknown. Associated signs and symptoms: Pertinent positives: drainage. Modifying factors: the symptoms are alleviated by nothing. It is unknown whether or not the patient has had similar symptoms in the past. It is unknown whether or not the patient has recently seen a physician. Sees Dr. Vega, Clinical Documentation Specialist is Dr. Torres. Pt states he has lower ext edema since starting Amlodipine. Historical: - Allergies: 18:32 No Known Allergies; aa5 - Home Meds: 18:35 Aspirin Oral [Active]; hydrochlorothiazide 25 mg Oral tab [Active]; amlodipine oral aa5 [Active]; Tradjenta 5 mg oral tab [Active]; atorvastatin oral oral [Active]; olmesartan oral oral [Active]; Glimepiride Oral [Active]; - PMHx: 18:32 Diabetes - NIDDM; Hypertension; Enlarged heart; "Leaking heart valve"; aa5 - PSHx: 18:32 None; aa5 - Immunization history:: Flu vaccine is not up to date. - Social history:: Smoking status: Patient uses tobacco products, smokes one pack cigarettes per day. chewing tobacco. - Ebola Screening: : No symptoms or risks identified at this time. ROS: 20:15 Constitutional: Negative for fever, chills, and weight loss, Eyes: Negative for injury, snw pain, redness, and discharge, ENT: Negative for injury, pain, and discharge, Neck: Negative for injury, pain, and swelling, Cardiovascular: Negative for chest pain, palpitations, and edema, Respiratory: Negative for shortness of breath, cough, wheezing, and pleuritic chest pain, Abdomen/GI: Negative for abdominal pain, nausea, vomiting, diarrhea, and constipation, Back: Negative for injury and pain, : Negative for injury, bleeding, discharge, and swelling, Skin: Negative for injury, rash, and discoloration, Neuro: Negative for headache, weakness, numbness, tingling, and seizure. 20:15 MS/extremity: Positive for pain, swelling, of the left lateral foot, draining. Exam: 20:13 Constitutional: This is a well developed, well nourished patient who is awake, alert, snw and in no acute distress. Head/Face: Normocephalic, atraumatic. Eyes: Pupils equal round and reactive to light, extra-ocular motions intact. Lids and lashes normal. Conjunctiva and sclera are non-icteric and not injected. Cornea within normal limits. Periorbital areas with no swelling, redness, or edema. ENT: Nares patent. No nasal discharge, no septal abnormalities noted. Tympanic membranes are normal and external auditory canals are clear. Oropharynx with no redness, swelling, or masses, exudates, or evidence of obstruction, uvula midline. Mucous membranes moist. Neck: Trachea midline, no thyromegaly or masses palpated, and no cervical lymphadenopathy. Supple, full range of motion without nuchal rigidity, or vertebral point tenderness. No Meningismus. Chest/axilla: Normal chest wall appearance and motion. Nontender with no deformity. No lesions are appreciated. 20:13 Respiratory: Lungs have equal breath sounds bilaterally, clear to auscultation and percussion. No rales, rhonchi or wheezes noted. No increased work of breathing, no retractions or nasal flaring. Abdomen/GI: Soft, non-tender, with normal bowel sounds. No distension or tympany. No guarding or rebound. No evidence of tenderness throughout. Back: No spinal tenderness. No costovertebral tenderness. Full range of motion. MS/ Extremity: Pulses equal, no cyanosis. Neurovascular intact. Full, normal range of motion. Neuro: Awake and alert, GCS 15, oriented to person, place, time, and situation. Cranial nerves II-XII grossly intact. Motor strength 5/5 in all extremities. Sensory grossly intact. Cerebellar exam normal. Normal gait. Psych: Awake, alert, with orientation to person, place and time. Behavior, mood, and affect are within normal limits. 20:13 Cardiovascular: Rate: tachycardic, Pulses: no pulse deficits are appreciated, Heart sounds: normal, Edema: 3+ edema to level of left midcalf, left ankle, left foot, right midcalf, right ankle and right foot. 20:13 Skin: Appearance: normal except for affected area, lesion(s), noted, and can be described as erythematous, necrotic, nontender, ulcerated, located on the lateral side of left foot, posterior lateral left foot ulcer with extension through to dorsal lateral foot, malodorous. Vital Signs: 18:33 BP 165 / 95; Pulse 105; Resp 16 S; Temp 99.0(TE); Pulse Ox 98% on R/A; Weight 113.4 kg aa5 (R); Height 5 ft. 11 in. (180.34 cm) (R); Pain 3/10; 22:27 BP 157 / 94 LA Sitting (auto/lg); Pulse 102; Resp 18 S; Temp 99.2(O); Pulse Ox 100% on vd2 R/A; 18:33 Body Mass Index 34.87 (113.40 kg, 180.34 cm) aa5 MDM: 19:56 Patient medically screened. snw 22:02 Data reviewed: vital signs, nurses notes. Data interpreted: Pulse oximetry: on room air snw is 98 %. Interpretation: normal. Counseling: I had a detailed discussion with the patient and/or guardian regarding: the historical points, exam findings, and any diagnostic results supporting the discharge/admit diagnosis, lab results, radiology results, the need for further work-up and treatment in the hospital. Physician consultation: Ani Nguyen MD was called at 22:02, was contacted at 22:02, regarding admission, to the telemetry unit. Dr. Self consult. 09/20 20:12 Order name: Basic Metabolic Panel snw 09/20 20:12 Order name: Blood Culture Adult (2) snw 09/20 20:12 Order name: CBC with Diff snw 09/20 20:12 Order name: Ckmb snw 09/20 20:12 Order name: CPK snw 09/20 20:12 Order name: Lactate; Complete Time: 21:46 snw 09/20 20:12 Order name: LFT's snw 09/20 20:12 Order name: Lipase snw 09/20 20:12 Order name: Procalcitonin; Complete Time: 22:23 snw 09/20 20:12 Order name: Protime (+inr); Complete Time: 21:35 snw 09/20 20:12 Order name: Ptt, Activated; Complete Time: 21:35 snw 09/20 20:13 Order name: Wound Culture snw 09/20 20:13 Order name: ESR; Complete Time: 22:35 snw 09/20 21:33 Order name: Manual Differential EDWI 09/20 20:12 Order name: Chest Single View XRAY; Complete Time: 22:03 snw 09/20 20:12 Order name: Accucheck; Complete Time: 21:32 snw 09/20 20:12 Order name: Cardiac monitoring; Complete Time: 20:59 snw 09/20 20:12 Order name: EKG - Nurse/Tech; Complete Time: 21:32 snw 09/20 20:18 Order name: Foot Left 3 View XRAY; Complete Time: 22:03 snw 09/20 22:31 Order name: Glucose, Ancillary Testing; Complete Time: 22:35 EDMS 09/20 22:32 Order name: CONS Pharmacy Consult EDMS 09/20 22:32 Order name: CONS Pharmacy Consult EDMS 09/20 22:32 Order name: CONS Physician Consult EDWI 09/20 22:32 Order name: NPO EDWI 09/20 22:32 Order name: Basic Metabolic Panel EDMS 09/20 22:32 Order name: Basic Metabolic Panel EDMS 09/20 22:32 Order name: CBC with Automated Diff EDMS 09/20 22:32 Order name: CBC with Automated Diff EDMS 09/20 20:12 Order name: IV Saline Lock - Large Bore; Complete Time: 20:59 snw 09/20 20:12 Order name: Labs collected and sent; Complete Time: 20:59 snw 09/20 20:12 Order name: O2 Per Protocol; Complete Time: 20:59 snw 09/20 20:12 Order name: O2 Sat Monitoring; Complete Time: 20:59 snw Administered Medications: 21:08 Drug: Zosyn 3.375 grams Route: IVPB; Infused Over: 60 mins; Site: right antecubital; fc 23:12 Follow up: Response: No adverse reaction; No change in condition; IV Status: Completed fc infusion; IV Intake: 100ml 21:08 Drug: NS 0.9% 1000 ml Route: IV; Rate: 125 ml/hr; Site: right antecubital; fc 23:11 Follow up: Response: No adverse reaction; Marked relief of symptoms; IV Status: fc Infusion continued upon admission; IV Intake: 250ml Point of Care Testing: Blood Glucose: 21:00 Blood Glucose: 197 mg/dL; vd2 Ranges: Critical Glucose Levels:Adult <50 mg/dl or >400 mg/dl <40 mg/dl or >180 mg/dl Disposition: 09/21 06:26 Co-signature as Attending Physician, Richard Hester MD Available for consultation at ps1 all times . Disposition: 09/20/18 22:02 Hospitalization ordered by nAi Nguyen for Inpatient Admission. Preliminary diagnosis are Personal history of diabetic foot ulcer, CELLULITIS AND ABSCESS OF FOOT. - Bed requested for Telemetry/MedSurg (Inpatient). - Status is Inpatient Admission. fc - Condition is Stable. - Problem is an acute exacerbation. - Symptoms have worsened. UTI on Admission? No Signatures: Dispatcher [employer] EDMS Letitia Camp RN RN Leslie Fernandez, SOLE BLACKER-C SOLE BLACKER-Csnw Ayleen Stevens RN RN Dari Keys RN RN aa5 Kp Ni, [address] [employer] pm1 Richard Hester MD MD ps1 Corrections: (The following items were deleted from the chart) 09/20 21:33 20:12 Urine Dipstick-Ancillary ordered. [facility] 22:43 22:02 Hospitalization Ordered by Ani Nguyen MD for Inpatient Admission. Preliminary diagnosis is Personal history of diabetic foot ulcer; CELLULITIS AND ABSCESS OF FOOT. Bed requested for Telemetry/MedSurg (Inpatient). Status is Inpatient Admission. Condition is Stable. Problem is an acute exacerbation. Symptoms have worsened. UTI on Admission? No. [facility] 23:31 22:43 09/20/2018 22:02 Hospitalization Ordered by Ani Nguyen MD for Inpatient fc Admission. Preliminary diagnosis is Personal history of diabetic foot ulcer; CELLULITIS AND ABSCESS OF FOOT. Bed requested for Telemetry/MedSurg (Inpatient). Status is Inpatient Admission. Condition is Stable. Problem is an acute exacerbation. Symptoms have worsened. UTI on Admission? No. mw
[2018-09-20] MEDS ORDERED: ONDANSETRON 4 MG/2 ML VIAL IV PRN (22:27)
[2018-09-20] MEDS ORDERED: ACETAMINOPHEN 500 MG TAB PO PRN (22:27)
[2018-09-20] MEDS ORDERED: MORPHINE 2 MG/ML SYR IV PRN (22:27)
[2018-09-20] MEDS: NA CHLORIDE 0.9% 1,000 ML IV SCH (23:00)
[2018-09-20] MEDS ORDERED: Levofloxacin500mg IV 500 MG/100 ML BAG IV SCH (23:00)
[2018-09-20 23:16] LABS: Bilirubin Direct 0.2 mg/dL (0-0.2); Bilirubin Total 0.4 mg/dL (0.2-1.0); Potassium 4.6 mmol/L (3.5-5.1)
[2018-09-20 23:17] LABS: Albumin 2.2 g/dL (3.4-5.0); CKMB Creatine Kinase MB 3.3 ng/mL (0.3-3.6); Protein, Total 8.1 g/dL (6.4-8.2)
[2018-09-20 23:24] LABS: Blood Morphology Comment NOT SEEN (NOT SEEN); Platelet Estimate ADEQ
[2018-09-21] MEDS ORDERED: Levofloxacin500mg IV 500 MG/100 ML BAG IV ONE (03:00)
[2018-09-21] MEDS ORDERED: VANCOMYCIN 1 GM/VIAL ONE (03:25)
[2018-09-21] MEDS ORDERED: NA CHLORIDE 0.9% 500 ML ONE (03:27)
[2018-09-21] MEDS ORDERED: VANCOMYCIN 2 GM in NA CHLORIDE 0.9% 500 ML IVPB SCH (04:00)
[2018-09-21 06:10] LABS: Urine Appearance CLEAR; Urine Bilirubin NEGATIVE (NEG); Urine Blood 2+ (NEG); Urine Color YELLOW; Urine Glucose 2+ (NEG); Urine Protein 3+ (NEG); Urine Specific Gravity 1.015 (1.005-1.030); Urine Urobilinogen 0.2 mg/dL (0.2-1.0); Urine pH 5.5 (5.0-7.0)
[2018-09-21 06:11] LABS: Urine Microscopic Reflex ORDER UMIC
[2018-09-21 06:23] LABS: Urine Bacteria <20 /HPF (NONE SEEN); Urine Culture Reflex Order REFLEXED
[2018-09-21 06:38] LABS: Absolute Lymphocytes (CBC) 0.9 K/uL (0.7-4.9); Absolute Monocytes 1.1 K/uL (0.1-1.3); Absolute Neutrophil 13.9 K/uL (1.8-8.0); Basophils % 0.3 % (0-1.3); Eosinophils % 2.1 % (0-4.4); Hematocrit 25.6 % (39.6-49.0); Lymphocytes % 5.5 % (15.3-44.8); MPV 7.9 fL (7.6-11.3); Monocytes % 6.7 % (3.3-12.3)
[2018-09-21 06:56] LABS: Potassium 4.5 mmol/L (3.5-5.1)
[2018-09-21] MEDS ORDERED: LORATADINE 10 MG TAB PO PRN (07:25)
[2018-09-21] MEDS: ATORVASTATIN 10 MG TAB PO SCH (09:00)
[2018-09-21] MEDS: VITAMIN D 5,000 UNIT CAP PO SCH (09:00)
[2018-09-21] MEDS ORDERED: INFLUENZA VACCINE (for 3y+) 0.5 ML DOSE IMVAC ONE (09:00)
[2018-09-21] MEDS: NA CHLORIDE 0.9% 1,000 ML IV SCH (12:20)
[2018-09-21] MEDS: NACHLORIDE 0.45% 1,000 ML IV SCH (13:36)
--- NOTE | 2018-09-21 13:44 | CON ---
Date of Consultation: 09/21/2018 Reason For Consultation: Acute renal insufficiency. History Of Present Illness: Mr. Bartlett is a 42-year-old male with past medical history significant for history of diabetes that has been longstanding for more than 20 years with peripheral vascular d isfernandoe, who presented to [facility] after insistence by his because of worsening wound on his left foot. The patient has noticed a wound on the bottom of his foot many weeks ago, however, he was trying treat it at home and the ulcer had worsened and also appeared on the top of his foot w ith small foul-smelling discharge and upon insistence of his , he presented to the hospital. The patient was noted to be in acute renal failure with creatinine of 8.1 noted on his labs. The patien t states that he does not have any past significant history of kidney disease, however, back in [facility] when he had blood work done by Dr. Vilchis, he was advised to get renal ultrasound done and renal e valuation. However, he has also been following up with Dr. Torres because of ischemic cardiomyopath y and had a stress test that was abnormal and was getting further workup. The patient is frustrated about being in the hospital and does not want to be here. Past Medical History: Significant for history of hypertension, type 2 diabetes, hyperlipidemia, and possible coronary artery disease with congestive heart failure. Past Surgical History: The patient has history of ankle surgery in his right foot. Social History: The patient smokes 1 pack of cigarettes per day for many years. Denies any alcohol use. Review of Systems: Positive for good urination. He denies any NSAID use recently. Denies any antibiotic use recently, however, has been compliant with taking his diabetes and his antihypertensive medications. He has rivera d long-standing history of uncontrolled type 2 diabetes along with uncontrolled hypertension as well. Family History: Significant for his father with history of cancer. No other renal issues reported i n any of his family members. Physical Examination: Vital Signs: At this time, temperature of 100.9, pulse rate of 97, respiratory rate of 19, and blood pressure of 150/85. General: He appears in no acute distress. HEENT: Atraumatic head. Heart: Auscultation of the heart revealed regular rate and rhythm. Abdomen: Obese and nontender. Extremities: Left foot with an ulcer on the bottom of his foot on the lateral side below his little toe with an extending ulcer onto the superficial part of his foot as well, which is foul smelling as well. Right lower extremity with 1+ edema was noted. Left lower extremity with 2+ edema was noted. Neurologic: He is alert, awake, and oriented x3, and he has no focal motor neurological deficits. Current Medications: Include normal saline at 75 cc an hour. He is also getting Levaquin 250 mg talita ry 48 hours and also receiving vancomycin 250 mg every 48 hours has been ordered. He is getting morp francisco as needed for pain and Zofran as needed for nausea. His blood cultures have been sent and are s till pending. Urine analysis is showing evidence of proteinuria, glycosuria as well as mild hematuri a. Laboratory Data: Sodium of 142, potassium of 4.5, chloride of 113, bicarb of 16, BUN of 65, and crea tinine of 8.01. Calcium was low at 7.2. Procalcitonin was slightly elevated. He had a WBC count of 20,000, which improved to 16,000 at this time, hemoglobin of 8.4, hematocrit of 25.6, and platelet c ount of 293. He had bandemia with 32% band neutrophils, which were noted on his peripheral smear. H is ESR was 1. INR was 1.2. Impression: Acute renal insufficiency. The patient's renal function seems to be significantly worse when compared to creatinine of 2.9 noted back in January of 2018. We will try to get more records from Dr. Vilchis' office to see what his baseline creatinine was. It could be related to acute tubular nec rosis from ongoing infection, possibly bacteremia from infected diabetic foot ulcer. The patient is receiving antibiotics, which have been dose adjusted for his renal function. We will await Gram stai ulises as well as culture reports from the foot and further adjust antibiotics as needed. In the [facility], we will also go ahead and send off autoimmune workup given his young age, however, most likely he does have underlying diabetic nephropathy, possibly underlying renovascular disease. We are also awaiting results of the renal ultrasound that has been ordered as well. The patient has been admitting counselor ed on NSAID use and kidney disease risk factors in detail. He has been explained that he possibly rivera ve chronic kidney disease on top of which he has developed acute renal insufficiency. I agree with a ntibiotics. I agree with surgical consult for further intervention on his foot, and we will follow u p on labs closely. Right now, he does not have any acute need for dialysis, however, if he develops any worsening renal function with uremic symptoms, he might require it and the patient understands th at. Continue all other medications. Thank you very much for this consultation. Please do not hesit ate to call us with any questions or concerns. URIAH/EVITA Voice ID: [id number] Report ID: [id number]
--- NOTE | 2018-09-21 16:09 | P.CNS ---
Date of Consult: 09/21/18 PC: This 42-year-old male presents emergency room with left foot pain for diagnosis and treatment. HPC: This patient, has noticed air in his left foot that started draining some foul-smelling odor. Also has 1 the corresponds on the sole of his left foot out under the right 5th toe. 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 Has cellulitis of the foot with some edema. Also some swelling of his lower legs with edema PMH: Diabetes PSHx: Previous ankle surgery right foot SOC: No known allergies SYS REVIEW: No cough, wheeze, or shortness of breath. Is having some issues with his diabetes and has been working with his primary care physician. O/E awake alert stable at the moment afebrile HEENT: Within normal and Chest: Chest movement equal bilateral ABD: Soft LOCO: On the dorsum of the left foot has an open area just at the base of the 5th toe. This appears to go straight to to the head of the 5th metatarsal on that foot. Has some erythema and swelling of his left foot DATA: White cell count elevated, x-rays show some air in the soft tissue IMPRESSION: Patient again MRI to tomorrow to rule out all stand. Will most likely need to go to the OR after that for surgical debridement of his wound. PLAN: NPO at midnight, MRI of left foot tomorrow. Possible OR with debridement. This is been discussed with the patient he understands the plan and wants to proceed.
--- NOTE | 2018-09-21 17:05 | PN ---
Date of Progress Note: 09/21/2018 Subjective: The patient seen and examined, chart reviewed and case discussed with RN, Dr. Hunt and Dr. Self. at the bedside. The patient does report improvement in his pain on the left foot. The patient did have some fever overnight. Medications: List reviewed. Physical Examination: Vital Signs: T-max 100.9, heart rate 97, blood pressure 150/85, respirations 19 , and O2 of 97% on room air. General: Awake, alert, oriented x3. Morbidly obese male, ill-appearing. CV: S1, S2. Regular rate and rhythm. Peripheral pulses present. Respiratory: Moving air well bilaterally. No wheezing or stridor. Gastrointestinal: Abdomen is soft, nontender, nondistended. Positive bowel sounds. No guarding or rigidity. Extremities: No clubbing or cyanosis. The patient has lower extremity edema of the left foot. Skin: Erythema of the left foot with open wound on the plantar aspect as well as on the lateral aspect with foul smelling odor. Tenderness to palpation with drainage. Neuro: Cranial nerves 2-12 intact grossly. No focal neurological deficits. Speech is normal. Decreased sensation to light touch, lower extremities. Laboratory Data: Sodium 142, potassium 4.5, chloride 113, CO2 of 16, BUN 55, creatinine 8.0, glucose 145, calcium 7.2. WBC 16.3, H and H 8.4 and 25.6, platelets 293, neutrophils 85%. Blood cultures pending. Wound culture, left foot shows gram-positive cocci in clusters and gram-negative rods. Urine culture also pending. Assessment And Plan: A 42-year-old male with: 1. Left foot wound, diabetic with drainage. Dr. Self has been consulted. The patient will likely need incision and drainage. Likely has osteomyelitis. We will check MRI of the foot in a.m., unable to be done on the weekend. The patient will likely need long-term IV antibiotics. 2. Obesity. Body mass index 34.9. 3. Diabetes mellitus type 2, non-insulin requiring. We will check hemoglobin A1c and monitor Accu-Cheks. Continue sliding scale insulin. Hold metformin at this time. 4. Essential hypertension, stable. We will resume home medications as appropriate. 5. Normocytic, normochromic anemia likely anemia of chronic disease. 6. Acute on chronic kidney injury. Creatinine is elevated to 8. The patient is not on dialysis. We will consult Nephrology. We will continue with IV fluids. Due to ATN most likely. 7. Deep vein thrombosis prophylaxis, addressed. /EVITA Voice ID: [id number] Report ID: [id number] MTDD
[2018-09-21] MEDS ORDERED: GLUCAGON 1 MG/VIAL IM PRN (18:31)
[2018-09-21] MEDS: INSULIN -REGULAR HUMAN 50 UNIT/0.5 ML ML SQ SCH (21:00)
--- NOTE | 2018-09-21 22:20 | P.HP ---
Certification for Inpatient Patient admitted to: Inpatient With expected LOS: >2 Midnights Patient will require the following post-hospital care: None Practitioner: I am a practitioner with admitting privileges, knowledge of patient current condition, hospital course, and medical plan of care. Services: Services provided to patient in accordance with Admission requirements found in Title 42 Section 412.3 of the Code of Federal Regulations Patient History Date of Service: 09/20/18 Reason for admission: diabetic foot ulcer History of Present Illness: Patient is a 42-year-old gentleman who came to the hospital with an open wound on the left foot. There is an area below his 1st metatarsal which appears to extend through the dorsal aspect of the 1st toe along the proximal interphalangeal joint. Patient also has significant lower extremity edema bilaterally. He says this is been going on and worsening which his physician felt like it was related to his amlodipine. He has been feeling weak and short of breath at work. He came into the ER for further evaluation. On assessment of his foot decision was made to admit him and to work him up for possible osteomyelitis. Will get general surgery consultation as well. Patient normally sees Dr. 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 Will consult General Surgeon Dr. Self for further evaluation. Incidentally, I was notified that the patient's creatinine came back in the Emergency Room highly elevated. There is a significant change from his prior renal function. Ago had history chronic kidney failure as well. Nephrology consultation as well as renal ultrasound and urine studies. Allergies No Known Drug Allergies Allergy (Verified 09/21/18 00:17) Unknown Home Medications: Amlodipine [Norvasc] 10 mg PO DAILY 09/21/18 Aspirin [Aspir-Low] 81 mg PO DAILY 09/21/18 Atorvastatin Calcium [Lipitor] 10 mg PO DAILY 09/21/18 Cholecalciferol (Vitamin D3) [Vitamin D3] 5,000 unit PO DAILY 09/21/18 Glimepiride [Amaryl] 2 mg PO DAILY 09/21/18 Ibuprofen 200 mg PO Q6H PRN 09/21/18 Linagliptin [Tradjenta] 5 mg PO DAILY 09/21/18 Loratadine [Claritin] 10 mg PO DAILY PRN 09/21/18 Olmesartan Medoxomil [Benicar] 40 mg PO DAILY 09/21/18 hydroCHLOROthiazide [Hydrodiuril] 25 mg PO DAILY 09/21/18 - Past Medical/Surgical History Has patient received pneumonia vaccine in the past: No Diabetic: Yes -: Diabetes- NIDDM -: Hypertension -: Enlarge heart -: "Leaking heart Valve" Past Surgical History: Patient denies surgical history Psychosocial/ Personal History: His preference would be for him to have doctors and nurses who are [place]ic. - Family History Father Family History: Reviewed- Non-Contributory - Social History Smoking Status: Light Tobacco smoker (1-9 cigarettes/day) Alcohol use: Yes CD- Drugs: No Caffeine use: Yes Place of Residence: Home Review of Systems 10-point ROS is otherwise unremarkable Physical Examination - Vital Signs Temperature: 101.0 F Blood Pressure: 145/76 Pulse: 96 Respirations: 18 Pulse Ox (%): 98 - Physical Exam General: Alert, In no apparent distress, Oriented x3 HEENT: Atraumatic, PERRLA, Mucous membr. moist/pink, EOMI, Sclerae nonicteric Neck: Supple, 2+ carotid pulse no bruit, No LAD, Without JVD or thyroid abnormality Respiratory: Clear to auscultation bilaterally, Normal air movement Cardiovascular: Regular rate/rhythm, Normal S1 S2 Gastrointestinal: Normal bowel sounds, Soft and benign, Non-distended, No tenderness Musculoskeletal: No clubbing, Swelling, Erythema, Tenderness, Other ( The purulent drainage from the 1st toe) Integumentary: No rashes Neurological: Normal gait, Normal speech, Normal strength at 5/5 x4 extr, Normal tone, Sensation intact, Cranial nerves 3-12 intact, Normal affect Lymphatics: No axilla or inguinal lymphadenopathy - Studies Laboratory Data (last 24 hrs) 09/20/18 20:43: Sodium 139, Potassium 4.6, BUN 69 H, Creatinine 8.17 H*, Glucose 196 H, Total Bilirubin 0.4, AST 24, ALT 37, Alkaline Phosphatase 288 H, Lipase 179 Microbiology Data (last 24 hrs): 09/20/18 20:07 Wound - Left Foot Gram Stain - Final Assessment & Plan - Problems (Diagnosis) (1) Diabetic foot ulcer Current Visit: Yes Status: Acute (2) Osteomyelitis Current Visit: Yes Status: Acute (3) Acute kidney injury superimposed on chronic kidney disease Current Visit: Yes Status: Acute (4) History of diabetes mellitus, type II Current Visit: Yes Status: Acute - Plan 1. Continue with IV antibiotic 2. Continue with local wound care 3. Surgical consultation and nephrology consultation 4. Gentle IV hydration 5. Monitor CBC 6. Strict blood sugar monitoring 7. Pain control 8. Renal ultrasound & urine studies 9. GI and DVT prophylaxis Discharge Plan: Home Plan to discharge in: 24 Hours - Advance Directives Does patient have a Living Will: No Does patient have a Durable POA for Healthcare: No - Code Status/Comfort Care Code Status Assessed: Yes Code Status: Full Code Critical Care: No Time Spent Managing PTS Care (In Minutes): 45
[2018-09-22] MEDS: NACHLORIDE 0.45% 1,000 ML IV SCH ×2 (02:06→17:29)
[2018-09-22 06:36] LABS: Absolute Lymphocytes (CBC) 1.2 K/uL (0.7-4.9); Absolute Monocytes 1.1 K/uL (0.1-1.3); Absolute Neutrophil 12.5 K/uL (1.8-8.0); Basophils % 0.4 % (0-1.3); Hematocrit 25.3 % (39.6-49.0); Lymphocytes % 7.6 % (15.3-44.8); MPV 7.8 fL (7.6-11.3); Monocytes % 7.4 % (3.3-12.3); RBC Red Blood Cell Count 2.95 M/uL (4.33-5.43)
[2018-09-22 07:07] LABS: Magnesium 1.7 mg/dL (1.8-2.4)
[2018-09-22] MEDS: D50W 25 GM/50 ML SYRINGE IV PRN ×2 (07:26→12:27)
[2018-09-22] MEDS: INSULIN -REGULAR HUMAN 50 UNIT/0.5 ML ML SQ SCH ×4 (07:30→21:00)
--- NOTE | 2018-09-22 07:58 | RAD REPORT ---
EXAM DESCRIPTION: US - Renal Ultrasound-Complete - 09/21/2018 11:16 pm CLINICAL HISTORY: Acute renal insufficiency COMPARISON: None. FINDINGS: The right kidney measures 13 cm with an increased echotexture. The left kidney measures 11 cm with an increased echotexture. Hydronephrosis is not seen. The bladder is poorly evaluated as it is decompressed IMPRESSION: No significant abnormalities displayed
[2018-09-22] MEDS: VITAMIN D 5,000 UNIT CAP PO SCH (08:56)
[2018-09-22] MEDS: ATORVASTATIN 10 MG TAB PO SCH (08:56)
[2018-09-22] MEDS ORDERED: MAGNESIUM SULFATE 1 gm IVPB 1 GM/100 ML BAG IV ONE (09:00)
--- NOTE | 2018-09-22 11:04 | RAD REPORT ---
EXAM DESCRIPTION: US - Lower Extremity Arterial Bilat - 09/22/2018 10:42 am CLINICAL HISTORY: Evaluate for PVD. Likely osteomy. to Left foot Claudication, pain and swelling COMPARISON: No comparisons TECHNIQUE: Bilateral lower extremity arterial Doppler examination was performed with waveform tracin g and ankle brachial pressure measurements. FINDINGS: Symmetric brachial pressure measurements are noted. Triphasic waveforms are seen throughout both lower extremity arterial systems to the level of the wojciech salis pedis arteries. Right ankle brachial index measures 1.3, normal. Left ankle brachial index measures 1.3, normal. IMPRESSION: No evidence of significant peripheral vascular disease.
--- NOTE | 2018-09-22 11:56 | RAD REPORT ---
EXAM DESCRIPTION: MRI - Foot Left Wo Cont - 09/22/2018 11:40 am CLINICAL HISTORY: diabetic foot infection rule out Osteomyelitis Lateral wound. COMPARISON: No comparisons FINDINGS: Poorly defined soft tissue wound is seen along the lateral forefoot. The soft tissue wound is approximately 14 mm deep. The soft tissues adjacent to this region are thickened and edematous. Mildly diminished T1 marrow signal abnormality is seen in the fifth metatarsal head and neck with mil dly elevated T2/IR signal in the region. This is compatible with mild osteomyelitis. Small amount of similar signal abnormality is also seen in the distal aspect of the proximal phalanx of the fifth toe , also suspicious for mild osteomyelitis. No fracture, dislocation or evidence of drainable fluid collection/ abscess. No soft tissue mass or h ematoma. IMPRESSION: Mild osteomyelitis is seen involving the fifth metatarsal head and neck region as well a s the distal aspect of the proximal phalanx of the fifth toe.
[2018-09-22 15:21] LABS: Ferritin 295.5 ng/mL (26-388)
[2018-09-22] MEDS ORDERED: HYDRALAZINE HCL 20 MG/ML VIAL IV PRN (16:17)
--- NOTE | 2018-09-22 16:23 | P.PN ---
Subjective Date of Service: 09/22/18 Primary Care Provider: Dr. Vilchis Chief Complaint: diabetic foot ulcer Subjective: Other (Pain controlled to the foot. Patient appears upset about his current condition) Physical Examination - Vital Signs Temperature: 97.4 F Blood Pressure: 165/91 Pulse: 95 Respirations: 18 Pulse Ox (%): 99 - Physical Exam General: Alert, In no apparent distress, Oriented x3, Cooperative, Other ( Anxiety noted) HEENT: Atraumatic Neck: Supple Respiratory: Clear to auscultation bilaterally, Normal air movement Cardiovascular: Normal pulses, Regular rate/rhythm Gastrointestinal: Normal bowel sounds, Soft and benign, Non-distended, No tenderness, No masses, No rebound, No guarding Musculoskeletal: Other (Erythema, swelling to the left foot bilaterally. Ulcers noted to the anterior and posterior area of the foot to the distal metatarsal region.) Neurological: Normal speech, Normal strength at 5/5 x4 extr, Normal tone, Normal affect - Studies Microbiology Data (last 24 hrs): 09/20/18 20:07 Wound - Left Foot Gram Stain - Final 09/20/18 20:07 Wound - Left Foot Culture & Sensitivity - Final Morganella Morganii Medications List Reviewed: Yes Assessment & Plan Discharge Plan: LTAC Plan to discharge in: Greater than 2 days Physician Review Additional Text: Impression: Osteomyelitis involving the 5th metatarsal head and neck region as well as distal aspect of proximal phalanx of the 5th toe Acute on chronic renal disease stage 5 Diabetes mellitus type 2 Hypertension Hyperlipidemia Obesity, BMI 34.9 Acute on chronic iron deficiency anemia Plan: Osteomyelitis involving the 5th metatarsal head and neck region as well as distal aspect of proximal phalanx of the 5th toe: Continue IV antibiotic therapy. Case discussed with surgery. Patient will have surgery for debridement. Also discuss case with nephrology concerning acute on chronic renal disease stage 5. Will hold off on dialysis as long as possible. After debridement patient will require IV antibiotic therapy for 6 weeks. Recommend for long-term acute care facility placement. Will again discuss this further with patient and continue to follow renal function. Patient may require dialysis sooner rather than later. Will follow along closely. Acute on chronic renal disease stage 5: Patient may require dialysis sooner rather than later. Will continue to monitor closely on a daily basis. If dialysis required patient will require dialysis catheter. Will hold off on dialysis catheter at this time as the patient will require debridement. Diabetes mellitus type 2: Continue Accu-Cheks and sliding scale. Hypertension: Will discontinue hydrochlorothiazide and Arb inhibitor. Will start metoprolol and add IV hydralazine as needed. Hyperlipidemia: Continue home medication Obesity, BMI 34.9: Will address lifestyle modification education. Acute on chronic Iron deficiency anemia: Will start IV iron. Will monitor hemoglobin closely. Time Spent Managing Pts Care (In Minutes): 55
[2018-09-22] MEDS ORDERED: HYDROCODONE/APAP 7.5/325 MG TAB PO PRN (16:24)
[2018-09-22] MEDS ORDERED: TRAMADOL HCL 50 MG TAB PO PRN (16:24)
[2018-09-22] MEDS ORDERED: ALPRAZOLAM 0.25 MG TABLET PO PRN (16:26)
[2018-09-22] MEDS: ENOXAPARIN 30 MG/0.3 ML SQ SCH (17:30)
[2018-09-22] MEDS ORDERED: METOPROLOL TAR 25 MG TAB PO SCH (18:00)
--- NOTE | 2018-09-22 19:33 | CON ---
Date of Consultation: 09/22/2018 Reason: The patient with a diabetic infected wound on the left foot and possibly needing dialysis. History Of Present Illness: The patient is a 42-year-old gentleman who came in with an infection and open wound on his left foot that started on with increasing swelling and increasing redness . He has neuropathy, not lot of pain. There has been some drainage. He is short of breath and I rivera d seen this patient in the past and I was asked to evaluate this patient. He is awake, alert. No fe jessica or chills currently. Review of Systems: Otherwise unremarkable. Past Medical History: Significant for diabetes, hypertension, heart disease. Past Surgical History: Incision and drainage in the past of right axillary abscess. Allergies: NONE. Social History: He smokes. He has been counseled. He drinks alcohol occasionally. Family History: Noncontributory. Physical Examination: Vital signs: Currently are stable. He is afebrile. General: He is awake, alert, oriented x3. Head and Neck: Cranial nerves 2 through 12 are grossly within normal limits. No neck masses. No JV D. Throat clear. Neck is supple. Chest: Clear. Heart: S1 and S2. Abdomen: Soft. Extremities: Marked edema pitting to both lower extremities. Palpable dorsalis pedis and posterior tibial pulses. On the left foot, there is a small ulcer on the plantar aspect of the fifth metatarsa l head. There is an open wound anterior and lateral and there maybe some tunneling between the 2 wou nds and there is necrosis and purulence on the lateral aspect of the foot as well and that appears to be just underneath the skin. It is red and warm. Laboratory Data: White count on admission was 20,800 and currently is 15.3. There is still a left s hift. His sedimentation rate was 1 on admission. INR is 1.23. Chemistry shows BUN of 62, creatinin e of 7.94. GFR is 7. His procalcitonin was 1.17 on admission. Lactic acid was 0.7 He had a Dopple r, which did not show any significant disease. He had foot MRI, which showed osteo of the fifth meta tarsal head and distal aspect of the proximal phalanx of the fifth toe distal. X-ray show soft tissu e ulceration along the lateral margin of the forefoot along the plantar aspect, no radiopaque foreign body was identified. Assessment: A 42-year-old gentleman multiple medical problems, acute renal insufficiency with a left foot diabetic infection, with an osteomyelitis. Recommendations: The patient needs to be on IV antibiotics, which he is. Nephrology has been consul kamila and will be evaluated for as to whether he needs dialysis or not and if he does, the time as to w hen they want to start it. Currently, his infection needs to be taken care of. We will take him to the OR for incision, drainage, and debridement of left foot diabetic infection. Following which, if his kidney functions do not improve and if he needs dialysis, we will go ahead and place [facility] er. Plan of care discussed in detail with Dr. Morgan, the patient and family. The patient understan ds the risks, benefits, and alternatives and agrees to dEvangelina HALL/MODL Voice ID: [id number] Report ID: [id number]
[2018-09-22] MEDS ORDERED: EPOETIN ALFA 10,000 UNIT/ML SQ ONE (22:09)
--- NOTE | 2018-09-22 22:34 | P.PN ---
Date of Service: 09/22/18 Vital Signs Temp Pulse Resp BP Pulse Ox 100.2 F 89 20 166/92 H 100 09/22/18 20:00 09/22/18 20:00 09/22/18 20:00 09/22/18 20:00 09/22/18 20:00 Medications Acetaminophen (Tylenol -Extra Strength) 500 mg PO Q6H PRN PRN Reason: pain/fever Stop: 10/20/18 22:28 Hydrocodone Bitart/Acetaminophen ([place] 7.5/325 Mg) 1 tab PO Q6H PRN PRN Reason: Pain scale 5-7 (Moderate) Stop: 10/22/18 16:25 Alprazolam (Xanax) 0.25 mg PO TID PRN PRN Reason: ANXIETY Stop: 10/22/18 16:27 Atorvastatin Calcium (Lipitor) 10 mg PO DAILY CLAUDY Stop: 10/21/18 09:01 Last Admin: 09/22/18 08:56 Dose: 10 mg Calcitriol (Rocaltrol) 0.5 mcg PO DAILY CLAUDY Stop: 10/23/18 09:01 Cholecalciferol (Vitamin D 5,000 Iu Cap) 5,000 unit PO DAILY CLAUDY Stop: 10/21/18 09:01 Last Admin: 09/22/18 08:56 Dose: 5,000 unit Dextrose (Dextrose 50% Syringe) 12.5 gm IV PRN PRN; Protocol PRN Reason: HYPOGLYCEMIA Stop: 10/21/18 18:32 Last Admin: 09/22/18 12:27 Dose: 12.5 gm Doxazosin Mesylate (Cardura) 2 mg PO BID CLAUDY Stop: 10/22/18 22:16 Enoxaparin Sodium (Lovenox 30 Mg Inj) 30 mg SQ DAILY 5 PM CLAUDY Stop: 10/22/18 17:01 Last Admin: 09/22/18 17:30 Dose: 30 mg Epoetin [place]mar (Epogen) 10,000 unit SQ 1X ONE Stop: 09/22/18 22:10 Famotidine (Pepcid) 20 mg PO DAILY [facility] Stop: 10/23/18 09:01 Glucagon (Glucagen) 1 mg IM 1X PRN; Protocol PRN Reason: HYPOGLYCEMIA Stop: 10/21/18 18:32 Hydralazine HCl (Apresoline) 10 mg IV Q6HP PRN PRN Reason: Titrate to SBP (MUST DEFINE) Stop: 10/22/18 16:18 Last Admin: 09/22/18 21:38 Dose: 10 mg Vancomycin HCl (Vancomycin 1 Gm/250 Ml Ns Ivpb) 1 gm in 250 mls @ 166.667 mls/ hr IVPB Q48H [facility]; Protocol Stop: 10/23/18 09:01 Levofloxacin/Dextrose (Levaquin 250mg/50 Ml Ivpb) 250 mg in 50 mls @ 50 mls/hr IV Q48H [facility]; Protocol Stop: 10/23/18 06:01 Ferric Sodium Gluconate Complex 125 mg/ Sodium Chloride 110 mls @ 100 mls/hr IV DAILY [facility] Stop: 09/30/18 10:05 Insulin Human Regular (Novolin -R) 0 unit SQ ACHS [facility]; Protocol Stop: 10/21/18 21:01 Last Admin: 09/22/18 21:00 Dose: Not Given Metoprolol Tartrate (Lopressor) 50 mg PO BID 6AM 6PM [facility] Stop: 10/23/18 06:01 Morphine Sulfate (Morphine Sulfate) 2 mg IV Q4H PRN PRN Reason: Pain scale 5-7 (Moderate) Stop: 10/20/18 22:28 Ondansetron HCl (Zofran) 4 mg IV Q8H PRN PRN Reason: NAUSEA / VOMITING Stop: 10/20/18 22:28 Sodium Bicarbonate (Sodium Bicarb 325 Mg) 650 mg PO TIDWM [facility] Stop: 10/22/18 22:16 Sodium Chloride (Normal Saline Flush) 10 ml IV BID [facility] Stop: 10/21/18 09:01 Last Admin: 09/22/18 21:32 Dose: 10 ml Tramadol HCl (Ultram) 50 mg PO TID PRN PRN Reason: Pain scale 2-4 (Mild) Stop: 10/22/18 16:25 Microbiology Results 09/20/18 20:07 Wound - Left Foot Gram Stain - Final 09/20/18 20:07 Wound - Left Foot Culture & Sensitivity - Final Morganella Morganii 09/20/18 21:02 Blood - Blood Aerobic Blood Culture - Preliminary No growth in 24 hours. 09/20/18 21:02 Blood - Blood Anaerobic Blood Culture - Preliminary No growth in 24 hours. 09/20/18 20:43 Blood - Blood Aerobic Blood Culture - Preliminary No growth in 24 hours. 09/20/18 20:43 Blood - Blood Anaerobic Blood Culture - Preliminary No growth in 24 hours. Assessment/ Plan: Nephrology. Angry and depressed regarding his medical problems. CPS stable without CP or SOB. +Edema No acute events overnight. Vitals, medications, blood work and imaging reviewed in the chart. NAD. NCAT. MMM. Neck supple. CTA. RRR. Soft Abd. No C/C. LE Edema 2+. Left foot ulcer. AAO. Normal speech. EXAM DESCRIPTION: US - Renal Ultrasound-Complete - 09/21/2018 11:16 pm CLINICAL HISTORY: Acute renal insufficiency COMPARISON: None. FINDINGS: The right kidney measures 13 cm with an increased echotexture. The left kidney measures 11 cm with an increased echotexture. Hydronephrosis is not seen. The bladder is poorly evaluated as it is decompressed IMPRESSION: No significant abnormalities displayed A/ AQUILINO suspicious for ESRD. CKD IV/V with proteinuria. DM II with CKD. HTN with CKD. Acidosis. Hyperkalemia. Hypocalcemia. Hypomagnesemia. Anemia in chronic illness. Iron deficiency. Left foot osteomyelitis (MRI). P/ Continue current POC and Medications. Increase Metoprolol and start Doxazosin. Start oral bicarb. Discontinue IVF. Follow up with surgery. Wound care as ordered. Plan for care home abx. Follow up cultures. Counseled regarding the possibility of HD in the near future. Check Hepatitis status. No NSAIDs. AM labs. Daily weight. Case discussed at length with the patient and . Case discussed with Dr. Morgan. Greater than 35 minutes patient care.
[2018-09-22] MEDS: SODIUM BICARB 325 MG TAB PO SCH (23:23)
[2018-09-22] MEDS: DOXAZOSIN 2 MG TAB PO SCH (23:25)
[2018-09-22 23:27] LABS: Urine Appearance CLEAR; Urine Bilirubin NEGATIVE (NEG); Urine Blood 2+ (NEG); Urine Color YELLOW; Urine Glucose 1+ (NEG); Urine Protein 3+ (NEG); Urine Specific Gravity 1.015 (1.005-1.030); Urine Urobilinogen 0.2 mg/dL (0.2-1.0)
[2018-09-22] MEDS ORDERED: EPOETIN ALFA 10,000 UNIT/ML VIAL ONE (23:31)
[2018-09-23 00:35] LABS: Urine Amorphous Sediment 1+ /HPF (NONE SEEN); Urine Bacteria <20 /HPF (NONE SEEN); Urine Culture Reflex Order REFLEXED
[2018-09-23] MEDS: Levofloxacin 250mg IV 250 MG/50 ML BAG IV SCH (05:13)
[2018-09-23] MEDS: METOPROLOL TAR 25 MG TAB PO SCH ×3 (05:41→21:31)
[2018-09-23 06:00] LABS: Absolute Lymphocytes (CBC) 1.3 K/uL (0.7-4.9); Absolute Neutrophil 9.7 K/uL (1.8-8.0); Basophils % 0.4 % (0-1.3); Eosinophils % 4.1 % (0-4.4); Hematocrit 27.2 % (39.6-49.0); Lymphocytes % 10.7 % (15.3-44.8); MPV 7.5 fL (7.6-11.3); Monocytes % 7.7 % (3.3-12.3)
[2018-09-23 06:06] LABS: Phosphorus 7.4 mg/dL (2.5-4.9); Potassium 4.9 mmol/L (3.5-5.1); Uric Acid 6.1 mg/dL (3.5-7.2)
[2018-09-23] MEDS: INSULIN -REGULAR HUMAN 50 UNIT/0.5 ML ML SQ SCH ×4 (07:30→21:00)
[2018-09-23] MEDS: CALCITROL 0.25 MCG CAP PO SCH (09:29)
[2018-09-23] MEDS: ATORVASTATIN 10 MG TAB PO SCH (09:29)
[2018-09-23] MEDS: VITAMIN D 5,000 UNIT CAP PO SCH (09:30)
[2018-09-23] MEDS: FAMOTIDINE 20 MG TAB PO SCH (09:30)
[2018-09-23] MEDS: DOXAZOSIN 2 MG TAB PO SCH ×2 (09:30→21:32)
[2018-09-23] MEDS: SOD FERRIC GLUC COMPLX/SUCROSE 125 MG in NA CHLORIDE 0.9% 100 ML IV SCH (09:31)
[2018-09-23] MEDS: SODIUM BICARB 325 MG TAB PO SCH ×3 (09:31→16:33)
[2018-09-23] MEDS: VANCOMYCIN/NS 1 gm 1 GM/250 ML BAG IVPB SCH (09:35)
--- NOTE | 2018-09-23 14:45 | P.PN ---
Subjective Date of Service: 09/23/18 Primary Care Provider: Dr. Vilchis Chief Complaint: diabetic foot ulcer Subjective: Doing well Physical Examination - Vital Signs Temperature: 98.9 F Blood Pressure: 138/65 Pulse: 88 Respirations: 20 Pulse Ox (%): 98 - Physical Exam General: Alert, In no apparent distress, Oriented x3, Cooperative HEENT: Atraumatic Neck: Supple Respiratory: Clear to auscultation bilaterally, Normal air movement Cardiovascular: Normal pulses, Regular rate/rhythm Gastrointestinal: Normal bowel sounds, Soft and benign, Non-distended, No tenderness, No masses, No rebound, No guarding Neurological: Normal speech, Normal strength at 5/5 x4 extr, Normal tone, Normal affect - Studies Medications List Reviewed: Yes Assessment & Plan Discharge Plan: Other (Long-term acute care facility versus home) Plan to discharge in: Greater than 2 days Physician Review Additional Text: Impression: Osteomyelitis involving the 5th metatarsal head and neck region as well as distal aspect of proximal phalanx of the 5th toe Acute on chronic renal disease stage 5 Diabetes mellitus type 2 Hypertension Hyperlipidemia Obesity, BMI 34.9 Acute on chronic iron deficiency anemia Plan: Osteomyelitis involving the 5th metatarsal head and neck region as well as distal aspect of proximal phalanx of the 5th toe, wound culture shows Morganella : Continue IV antibiotic therapy. Patient NPO. Surgical intervention planned for today. Will discuss findings with surgery. Discuss with patient about the possibility of long-term acute care facility placement versus home. Will need to continue to discuss options as the patient may require dialysis. Will continue to monitor closely. Will discuss case further with nephrology. Acute on chronic renal disease stage 5: Patient may require dialysis sooner rather than later. Will continue to monitor closely on a daily basis. If dialysis required patient will require dialysis catheter. Will hold off on dialysis catheter at this time as the patient will require debridement 1st. Diabetes mellitus type 2: Continue Accu-Cheks and sliding scale. Hypertension: Will discontinue hydrochlorothiazide and Arb inhibitor. Continue with metoprolol. Will provide IV medication as needed. Hyperlipidemia: Continue home medication Obesity, BMI 34.9: Will address lifestyle modification education. Acute on chronic Iron deficiency anemia: Continue with IV iron. Will monitor hemoglobin closely. Time Spent Managing Pts Care (In Minutes): 55
--- NOTE | 2018-09-23 15:58 | ECHO ---
HEIGHT: 5 ft 11 in WEIGHT: 251 lb 0 oz DATE OF STUDY: 09/23/[address]: Kieran Morgan DO 2-DIMENSIONAL: YES M.MODE: YES DOPPLER: YES COLOR FLOW: YES TDS: NO PORTABLE: NO DEFINITY: NO BUBBLE STUDY: NO DIAGNOSIS: HYPERTENSION, DIABETES MELLITUS, OSTEOMYELITIS TO LEFT FOOT CARDIAC HISTORY: CATHERIZATION: NO SURGERY: NO PROSTHETIC VALVE: NO PACEMAKER: NO MEASUREMENTS (cm) DIASTOLIC (NORMALS) SYSTOLIC (NORMALS) IVSd 1.2 (0.6-1.2) LA Diam 4.0 (1.9-4.0) LVEF 54% LVIDd 4.2 (3.5-5.7) LVIDs 3.0 (2.0-3.5) %FS 27% LVPWd 1.4 (0.6-1.2) Ao Diam 3.4 (2.0-3.7) 2 DIMENSIONAL ASSESSMENT: RIGHT ATRIUM: NORMAL LEFT ATRIUM: DILATED RIGHT VENTRICLE: NORMAL LEFT VENTRICLE: NORMAL TRICUSPID VALVE: NORMAL MITRAL VALVE: NORMAL PULMONIC VALVE: NORMAL AORTIC VALVE: NORMAL PERICARDIAL EFFUSION: NONE AORTIC ROOT: NORMAL LEFT VENTRICULAR WALL MOTION: NORMAL DOPPLER/COLOR FLOW: NORMAL COMMENTS: NORMAL 2D ECHOCARDIOGRAM WITH DOPPLER. NO WALL MOTION ABNORMALITY. NO EFFUSION. TECHNOLOGIST: Curtis CHU
[2018-09-23] MEDS: ENOXAPARIN 30 MG/0.3 ML SQ SCH (16:31)
[2018-09-23] MEDS ORDERED: BUPIVACAINE 0.5% PF 10 ML VIAL ONE (16:43)
[2018-09-23] MEDS ORDERED: NA CHLORIDE 0.9% 1,000 ML ONE (16:52)
[2018-09-23] MEDS ORDERED: D50W 25 GM/50 ML SYRINGE IV ONE (17:24)
[2018-09-23] MEDS ORDERED: PROPOFOL 200 MG/20 ML VIAL IV ONE (17:59)
[2018-09-23] MEDS ORDERED: FENTANYL CITR 100 MCG/2 ML ONE ×2 (18:00→18:29)
[2018-09-23] MEDS ORDERED: LIDOCAINE 2% MPF 5 ML VIAL ONE (18:00)
--- NOTE | 2018-09-23 18:28 | P.OP ---
Preoperative diagnosis: Infected Left Foot with osteo Postoperative diagnosis: same Primary procedure: I and D and Debridement L Foot wounds x2 Anesthesia: Gen Estimated blood loss: min Specimen: pus Infected tissue Findings: as above Complications: None Transferred to: Recovery Room Condition: Good
[2018-09-23] MEDS ORDERED: HYDROMORPHONE HCL 1 MG/ML INJ IV PRN (18:41)
[2018-09-23] MEDS ORDERED: CHLORHEXIDINE GLUCO 4% 120 ML TOP SCH (19:00)
[2018-09-23] MEDS: MUPIROCIN 2% OINT 22GM TUBE TOP SCH (21:30)
--- NOTE | 2018-09-24 03:40 | OP ---
Date of Procedure: 09/23/2018 Surgeon: Gunner Saenz MD Preoperative Diagnosis: Infection, left foot, with osteo. Postoperative Diagnosis: Infection, left foot, with osteo. Procedure: Incision and drainage and debridement of left foot infected wounds x2. Estimated Blood Loss: Minimal. Specimen: Pus and infected tissue. Findings: As above. Anesthesia: General. Complications: None. Disposition: The patient tolerated the procedure in stable condition and taken to recovery in good g eneral condition. Procedure In Detail: The patient was brought to the OR and placed in supine position. General anest hesia was began. The patient was prepped and draped in usual sterile fashion. Marcaine 0.5% was inf iltrated locally and then the patient had 2 wounds, 1 on the plantar aspect of the fifth metatarsal h ead and 1 on the dorsum of the foot. They connected and there was lot of necrotic tissue and then on the lateral aspect, the dorsum of the ulcer connected to it, approximately 8 x 3 cm and this was all infected tissues. So, ellipse of skin was excised down through the subcutaneous tissue. Pus was ev acuated. Necrotic tissue was debrided. Cultures were done. Both ulcers were debrided until good bl eeding was obtained, and bleeding was controlled with cautery. The entire wound was irrigated. All visible necrotic tissue was debrided and then wet-to-dry normal saline dressing change was applied. The patient tolerated the procedure in stable condition and taken to re covery in good general condition. /MODL Voice ID: [id number] Report ID: [id number]
[2018-09-24] MEDS: METOPROLOL TAR 25 MG TAB PO SCH ×2 (05:14→17:14)
[2018-09-24 06:42] LABS: Absolute Monocytes 0.8 K/uL (0.1-1.3); Absolute Neutrophil 9.6 K/uL (1.8-8.0); Basophils % 0.7 % (0-1.3); Eosinophils % 3.8 % (0-4.4); Lymphocytes % 8.4 % (15.3-44.8); MPV 7.5 fL (7.6-11.3); Monocytes % 6.6 % (3.3-12.3); RBC Red Blood Cell Count 3.02 M/uL (4.33-5.43)
[2018-09-24] MEDS: INSULIN -REGULAR HUMAN 50 UNIT/0.5 ML ML SQ SCH ×4 (07:30→21:00)
[2018-09-24 07:37] LABS: Magnesium 2.1 mg/dL (1.8-2.4)
[2018-09-24 07:39] LABS: Potassium 5.6 mmol/L (3.5-5.1)
[2018-09-24] MEDS ORDERED: SOD POLYSTYREN SUL 15 GM/60 ML UCUP PO ONE (08:07)
--- NOTE | 2018-09-24 09:15 | P.PN ---
Subjective Date of Service: 09/24/18 Primary Care Provider: Dr. Vilchis Chief Complaint: diabetic foot ulcer Subjective: Doing well (Pain controlled.) Physical Examination - Vital Signs Temperature: 99.1 F Blood Pressure: 136/76 Pulse: 77 Respirations: 16 Pulse Ox (%): 97 - Physical Exam General: Alert, In no apparent distress, Oriented x3, Cooperative HEENT: Atraumatic Neck: Supple Respiratory: Clear to auscultation bilaterally, Normal air movement Cardiovascular: Normal pulses, Regular rate/rhythm Gastrointestinal: Normal bowel sounds, Soft and benign, Non-distended, No tenderness, No masses, No rebound, No guarding Integumentary: Other (Status post I and D of left foot. Left foot bandaged) Neurological: Normal speech, Normal strength at 5/5 x4 extr, Normal tone, Normal affect, Other (Patient able to ambulate. ) - Studies Medications List Reviewed: Yes Assessment & Plan Discharge Plan: Home Plan to discharge in: Greater than 2 days Physician Review Additional Text: Impression: Osteomyelitis involving the 5th metatarsal head and neck region as well as distal aspect of proximal phalanx of the 5th toe Acute on chronic renal disease stage 5 Diabetes mellitus type 2 Hypertension Hyperlipidemia Obesity, BMI 34.9 Acute on chronic iron deficiency anemia Plan: Osteomyelitis involving the 5th metatarsal head and neck region as well as distal aspect of proximal phalanx of the 5th toe, wound culture shows Morganella : Continue IV antibiotic therapy. Patient had I and D yesterday. Will discuss with surgery about plan of care concerning IV versus oral antibiotics. Await culture results taken from surgery. Patient desires to go home at some point verses going to long-term acute care facility placement. Acute on chronic renal disease stage 5 with noted hyperkalemia: Renal function still compromised. Potassium elevated this morning. Patient will receive Kayexalate. Will recheck potassium later today. Patient will likely require dialysis sooner rather than later. If no significant improve it anticipate need for dialysis in the next 1-2 days. Patient will require dialysis catheter. Will discuss with nephrology.. Diabetes mellitus type 2: Continue Accu-Cheks and sliding scale. Hypertension: Hydrochlorothiazide and Arb inhibitor discontinued. Continue with metoprolol. Will provide IV medication as needed. Hyperlipidemia: Continue home medication Obesity, BMI 34.9: Will address lifestyle modification education. Acute on chronic Iron deficiency anemia: Continue with IV iron supplementation. Will monitor hemoglobin closely. Time Spent Managing Pts Care (In Minutes): 55
[2018-09-24] MEDS: SOD FERRIC GLUC COMPLX/SUCROSE 125 MG in NA CHLORIDE 0.9% 100 ML IV SCH (09:30)
[2018-09-24] MEDS: CALCITROL 0.25 MCG CAP PO SCH (09:30)
[2018-09-24] MEDS: DOXAZOSIN 2 MG TAB PO SCH ×2 (09:31→21:00)
[2018-09-24] MEDS: SODIUM BICARB 325 MG TAB PO SCH ×3 (09:31→17:13)
[2018-09-24] MEDS: FAMOTIDINE 20 MG TAB PO SCH (09:31)
[2018-09-24] MEDS: VITAMIN D 5,000 UNIT CAP PO SCH (09:31)
[2018-09-24] MEDS: ATORVASTATIN 10 MG TAB PO SCH (09:31)
[2018-09-24] MEDS: MUPIROCIN 2% OINT 22GM TUBE TOP SCH ×2 (09:32→21:04)
--- NOTE | 2018-09-24 15:22 | PN ---
Date of Progress Note: 09/24/2018 Subjective: The patient is awake, alert. No complaint. Objective: Vital Signs: Stable. He is afebrile. Temperature however is 99.1. Laboratory Data: Significant for white count of 12,000. There is a slight left shift. His cultures are still pending the ones that were done on the , however growing out Morganella morganii, just was seen, and it is sensitive to Zosyn, Cipro, Bactrim, tetracycline. There is no mention of vancom ycin. Dressing is clean dry and intact. His BUN and creatinine are still elevated and potassium is slightl y elevated. He will probably need dialysis sooner rather than later. We will await Dr. Grant's rec ommendation. Once we get that we will proceed with Tesio catheter placement. Assessment: Status post incision, drainage and debridement of left foot infected wound and osteomyel itis and acute renal failure. Recommendations: Continue IV antibiotics as ordered. Continue to check cultures and adjust antibiot ics accordingly and will place a Tesio catheter probably tomorrow but will await Dr. Grant's recomme ndation. Patient understands the risks, benefits, and alternatives and agrees to procedure. Please note, the patient is a Levaquin and he is sensitive to. Further monitoring of . /MODL Voice ID: [id number] Report ID: [id number]
[2018-09-24] MEDS: ENOXAPARIN 30 MG/0.3 ML SQ SCH (17:14)
--- NOTE | 2018-09-24 22:07 | P.PN ---
Date of Service: 09/23/18 Vital Signs Temp Pulse Resp BP Pulse Ox 97.9 F 69 20 124/74 97 09/24/18 16:00 09/24/18 21:00 09/24/18 16:00 09/24/18 21:00 09/24/18 16:00 Medications Acetaminophen (Tylenol -Extra Strength) 500 mg PO Q6H PRN PRN Reason: pain/fever Stop: 10/20/18 22:28 Last Admin: 09/23/18 02:11 Dose: 500 mg Hydrocodone Bitart/Acetaminophen ([place] 7.5/325 Mg) 1 tab PO Q6H PRN PRN Reason: Pain scale 5-7 (Moderate) Stop: 10/22/18 16:25 Alprazolam (Xanax) 0.25 mg PO TID PRN PRN Reason: ANXIETY Stop: 10/22/18 16:27 Atorvastatin Calcium (Lipitor) 10 mg PO DAILY [facility] Stop: 10/21/18 09:01 Last Admin: 09/24/18 09:31 Dose: 10 mg Calcitriol (Rocaltrol) 0.5 mcg PO DAILY [facility] Stop: 10/23/18 09:01 Last Admin: 09/24/18 09:30 Dose: 0.5 mcg Chlorhexidine Gluconate (Betasept) 1 appl TOP UD [facility] Stop: 10/23/18 19:01 Cholecalciferol (Vitamin D 5,000 Iu Cap) 5,000 unit PO DAILY [facility] Stop: 10/21/18 09:01 Last Admin: 09/24/18 09:31 Dose: 5,000 unit Dextrose (Dextrose 50% Syringe) 12.5 gm IV PRN PRN; Protocol PRN Reason: HYPOGLYCEMIA Stop: 10/21/18 18:32 Last Admin: 09/22/18 12:27 Dose: 12.5 gm Doxazosin Mesylate (Cardura) 2 mg PO BID [facility] Stop: 10/22/18 22:16 Last Admin: 09/24/18 21:00 Dose: Not Given Enoxaparin Sodium (Lovenox 30 Mg Inj) 30 mg SQ DAILY 5 PM [facility] Stop: 10/22/18 17:01 Last Admin: 09/24/18 17:14 Dose: 30 mg Famotidine (Pepcid) 20 mg PO DAILY [facility] Stop: 10/23/18 09:01 Last Admin: 09/24/18 09:31 Dose: 20 mg Glucagon (Glucagen) 1 mg IM 1X PRN; Protocol PRN Reason: HYPOGLYCEMIA Stop: 10/21/18 18:32 Hydralazine HCl (Apresoline) 10 mg IV Q6HP PRN PRN Reason: Titrate to SBP (MUST DEFINE) Stop: 10/22/18 16:18 Last Admin: 09/22/18 21:38 Dose: 10 mg Hydromorphone HCl (Dilaudid) 1 mg IV Q6H PRN PRN Reason: Pain scale 5-7 (Moderate) Stop: 10/23/18 18:42 Vancomycin HCl (Vancomycin 1 Gm/250 Ml Ns Ivpb) 1 gm in 250 mls @ 166.667 mls/ hr IVPB Q48H [facility]; Protocol Stop: 10/23/18 09:01 Last Admin: 09/23/18 09:35 Dose: 250 mls Levofloxacin/Dextrose (Levaquin 250mg/50 Ml Ivpb) 250 mg in 50 mls @ 50 mls/hr IV Q48H [facility]; Protocol Stop: 10/23/18 06:01 Last Admin: 09/23/18 05:13 Dose: 50 mls Ferric Sodium Gluconate Complex 125 mg/ Sodium Chloride 110 mls @ 100 mls/hr IV DAILY [facility] Stop: 09/30/18 10:05 Last Admin: 09/24/18 09:30 Dose: 110 mls Insulin Human Regular (Novolin -R) 0 unit SQ ACHS [facility]; Protocol Stop: 10/21/18 21:01 Last Admin: 09/24/18 21:00 Dose: Not Given Metoprolol Tartrate (Lopressor) 50 mg PO BID 6AM 6PM [facility] Stop: 10/23/18 06:01 Last Admin: 09/24/18 17:14 Dose: 50 mg Morphine Sulfate (Morphine Sulfate) 2 mg IV Q4H PRN PRN Reason: Pain scale 5-7 (Moderate) Stop: 10/20/18 22:28 Mupirocin (Bactroban 2% Ointment) 1 appl TOP BID [facility] Stop: 10/23/18 21:01 Last Admin: 09/24/18 21:04 Dose: 1 anisha Ondansetron HCl (Zofran) 4 mg IV Q8H PRN PRN Reason: NAUSEA / VOMITING Stop: 10/20/18 22:28 Sodium Bicarbonate (Sodium Bicarb 325 Mg) 650 mg PO TIDWM [facility] Stop: 10/22/18 22:16 Last Admin: 09/24/18 17:13 Dose: 650 mg Sodium Chloride (Normal Saline Flush) 10 ml IV BID [facility] Stop: 10/21/18 09:01 Last Admin: 09/24/18 21:04 Dose: 10 ml Tramadol HCl (Ultram) 50 mg PO TID PRN PRN Reason: Pain scale 2-4 (Mild) Stop: 10/22/18 16:25 Microbiology Results 09/20/18 20:07 Wound - Left Foot Gram Stain - Final 09/20/18 20:07 Wound - Left Foot Culture & Sensitivity - Final Morganella Morganii 09/20/18 21:02 Blood - Blood Aerobic Blood Culture - Preliminary No growth in 24 hours. 09/20/18 21:02 Blood - Blood Anaerobic Blood Culture - Preliminary No growth in 24 hours. 09/20/18 20:43 Blood - Blood Aerobic Blood Culture - Preliminary No growth in 24 hours. 09/20/18 20:43 Blood - Blood Anaerobic Blood Culture - Preliminary No growth in 24 hours. Assessment/ Plan: Nephrology. Feeling better. Pain improved. CPS stable without CP or SOB. +Edema No acute events overnight. Considering dialysis but not ready to start. Vitals, medications, blood work and imaging reviewed in the chart. NAD. NCAT. MMM. Neck supple. CTA. RRR. Soft Abd. No C/C. LE Edema 2+. Left foot ulcer. Right foot ulcer. AAO. Normal speech. EXAM DESCRIPTION: US - Renal Ultrasound-Complete - 09/21/2018 11:16 pm CLINICAL HISTORY: Acute renal insufficiency COMPARISON: None. FINDINGS: The right kidney measures 13 cm with an increased echotexture. The left kidney measures 11 cm with an increased echotexture. Hydronephrosis is not seen. The bladder is poorly evaluated as it is decompressed IMPRESSION: No significant abnormalities displayed A/ AQUILINO suspicious for ESRD. CKD IV/V with proteinuria. DM II with CKD. HTN with CKD. Acidosis. Hyperkalemia. Hypocalcemia. Hypomagnesemia. Anemia in chronic illness. Iron deficiency. Left foot osteomyelitis (MRI). Right foot ulcer. P/ Continue current POC and Medications. Follow up with surgery. Wound care as ordered. Plan for termination clerk abx. Follow up cultures. Counseled regarding the possibility of HD in the near future. Check Hepatitis status. No NSAIDs. AM labs. Daily weight. Case discussed at length with the patient and . Case discussed with Dr. Morgan.
--- NOTE | 2018-09-24 22:45 | P.PN ---
Date of Service: 09/24/18 Vital Signs Temp Pulse Resp BP Pulse Ox 97.9 F 69 20 124/74 97 09/24/18 16:00 09/24/18 21:00 09/24/18 16:00 09/24/18 21:00 09/24/18 16:00 Medications Acetaminophen (Tylenol -Extra Strength) 500 mg PO Q6H PRN PRN Reason: pain/fever Stop: 10/20/18 22:28 Last Admin: 09/23/18 02:11 Dose: 500 mg Hydrocodone Bitart/Acetaminophen ([place] 7.5/325 Mg) 1 tab PO Q6H PRN PRN Reason: Pain scale 5-7 (Moderate) Stop: 10/22/18 16:25 Alprazolam (Xanax) 0.25 mg PO TID PRN PRN Reason: ANXIETY Stop: 10/22/18 16:27 Atorvastatin Calcium (Lipitor) 10 mg PO DAILY [facility] Stop: 10/21/18 09:01 Last Admin: 09/24/18 09:31 Dose: 10 mg Calcitriol (Rocaltrol) 0.5 mcg PO DAILY [facility] Stop: 10/23/18 09:01 Last Admin: 09/24/18 09:30 Dose: 0.5 mcg Chlorhexidine Gluconate (Betasept) 1 appl TOP UD [facility] Stop: 10/23/18 19:01 Cholecalciferol (Vitamin D 5,000 Iu Cap) 5,000 unit PO DAILY [facility] Stop: 10/21/18 09:01 Last Admin: 09/24/18 09:31 Dose: 5,000 unit Dextrose (Dextrose 50% Syringe) 12.5 gm IV PRN PRN; Protocol PRN Reason: HYPOGLYCEMIA Stop: 10/21/18 18:32 Last Admin: 09/22/18 12:27 Dose: 12.5 gm Doxazosin Mesylate (Cardura) 2 mg PO BID [facility] Stop: 10/22/18 22:16 Last Admin: 09/24/18 21:00 Dose: Not Given Enoxaparin Sodium (Lovenox 30 Mg Inj) 30 mg SQ DAILY 5 PM [facility] Stop: 10/22/18 17:01 Last Admin: 09/24/18 17:14 Dose: 30 mg Famotidine (Pepcid) 20 mg PO DAILY [facility] Stop: 10/23/18 09:01 Last Admin: 09/24/18 09:31 Dose: 20 mg Furosemide (Lasix) 40 mg IV Q8HR [facility] Stop: 10/25/18 01:01 Glucagon (Glucagen) 1 mg IM 1X PRN; Protocol PRN Reason: HYPOGLYCEMIA Stop: 10/21/18 18:32 Hydralazine HCl (Apresoline) 10 mg IV Q6HP PRN PRN Reason: Titrate to SBP (MUST DEFINE) Stop: 10/22/18 16:18 Last Admin: 09/22/18 21:38 Dose: 10 mg Hydromorphone HCl (Dilaudid) 1 mg IV Q6H PRN PRN Reason: Pain scale 5-7 (Moderate) Stop: 10/23/18 18:42 Vancomycin HCl (Vancomycin 1 Gm/250 Ml Ns Ivpb) 1 gm in 250 mls @ 166.667 mls/ hr IVPB Q48H [facility]; Protocol Stop: 10/23/18 09:01 Last Admin: 09/23/18 09:35 Dose: 250 mls Levofloxacin/Dextrose (Levaquin 250mg/50 Ml Ivpb) 250 mg in 50 mls @ 50 mls/hr IV Q48H [facility]; Protocol Stop: 10/23/18 06:01 Last Admin: 09/23/18 05:13 Dose: 50 mls Ferric Sodium Gluconate Complex 125 mg/ Sodium Chloride 110 mls @ 100 mls/hr IV DAILY [facility] Stop: 09/30/18 10:05 Last Admin: 09/24/18 09:30 Dose: 110 mls Insulin Human Regular (Novolin -R) 0 unit SQ ACHS [facility]; Protocol Stop: 10/21/18 21:01 Last Admin: 09/24/18 21:00 Dose: Not Given Metoprolol Tartrate (Lopressor) 50 mg PO BID 6AM 6PM [facility] Stop: 10/23/18 06:01 Last Admin: 09/24/18 17:14 Dose: 50 mg Morphine Sulfate (Morphine Sulfate) 2 mg IV Q4H PRN PRN Reason: Pain scale 5-7 (Moderate) Stop: 10/20/18 22:28 Mupirocin (Bactroban 2% Ointment) 1 appl TOP BID [facility] Stop: 10/23/18 21:01 Last Admin: 09/24/18 21:04 Dose: 1 anisha Ondansetron HCl (Zofran) 4 mg IV Q8H PRN PRN Reason: NAUSEA / VOMITING Stop: 10/20/18 22:28 Sodium Bicarbonate (Sodium Bicarb 325 Mg) 650 mg PO TIDWM [facility] Stop: 10/22/18 22:16 Last Admin: 09/24/18 17:13 Dose: 650 mg Sodium Chloride (Normal Saline Flush) 10 ml IV BID [facility] Stop: 10/21/18 09:01 Last Admin: 09/24/18 21:04 Dose: 10 ml Tramadol HCl (Ultram) 50 mg PO TID PRN PRN Reason: Pain scale 2-4 (Mild) Stop: 10/22/18 16:25 Microbiology Results 09/20/18 20:07 Wound - Left Foot Gram Stain - Final 09/20/18 20:07 Wound - Left Foot Culture & Sensitivity - Final Morganella Morganii 09/20/18 21:02 Blood - Blood Aerobic Blood Culture - Preliminary No growth in 24 hours. 09/20/18 21:02 Blood - Blood Anaerobic Blood Culture - Preliminary No growth in 24 hours. 09/20/18 20:43 Blood - Blood Aerobic Blood Culture - Preliminary No growth in 24 hours. 09/20/18 20:43 Blood - Blood Anaerobic Blood Culture - Preliminary No growth in 24 hours. Assessment/ Plan: Nephrology. Feeling better. Pain controlled. CPS stable without CP or SOB. +Edema No acute events overnight. Understands that he may to have to start dialysis soon. Vitals, medications, blood work and imaging reviewed in the chart. NAD. NCAT. MMM. Neck supple. CTA. RRR. Soft Abd. No C/C. LE Edema 2+. Left foot ulcer. Right foot ulcer. AAO. Normal speech. EXAM DESCRIPTION: US - Renal Ultrasound-Complete - 09/21/2018 11:16 pm CLINICAL HISTORY: Acute renal insufficiency COMPARISON: None. FINDINGS: The right kidney measures 13 cm with an increased echotexture. The left kidney measures 11 cm with an increased echotexture. Hydronephrosis is not seen. The bladder is poorly evaluated as it is decompressed IMPRESSION: No significant abnormalities displayed A/ AQUILINO suspicious for ESRD. CKD IV/V with proteinuria. DM II with CKD. HTN with CKD. Acidosis. Hyperkalemia. Hypocalcemia. Hypomagnesemia. Anemia in chronic illness. Iron deficiency. Left foot osteomyelitis (MRI). Right foot ulcer. P/ Continue current POC and Medications. Follow up with surgery. Wound care as ordered. Plan for meterman abx. Follow up cultures. Counseled regarding different dialysis options. Hepatitis status pending. No NSAIDs. AM labs. Daily weight. Case discussed at length with the patient. Case discussed with Dr. Morgan.
[2018-09-25] MEDS: FUROSEMIDE 40 MG/4 ML VIAL IV SCH ×3 (00:48→17:00)
[2018-09-25] MEDS: METOPROLOL TAR 25 MG TAB PO SCH ×2 (06:13→17:39)
[2018-09-25] MEDS: Levofloxacin 250mg IV 250 MG/50 ML BAG IV SCH (06:14)
[2018-09-25] MEDS ORDERED: NA CHLORIDE 0.9% 50 ML ONE (06:22)
[2018-09-25 06:37] LABS: Absolute Lymphocytes (CBC) 0.9 K/uL (0.7-4.9); Absolute Monocytes 0.6 K/uL (0.1-1.3); Absolute Neutrophil 6.7 K/uL (1.8-8.0); Basophils % 0.6 % (0-1.3); Eosinophils % 5.1 % (0-4.4); Hematocrit 24.6 % (39.6-49.0); Lymphocytes % 10.7 % (15.3-44.8); MPV 7.7 fL (7.6-11.3); RBC Red Blood Cell Count 2.87 M/uL (4.33-5.43)
[2018-09-25 07:04] LABS: Albumin 1.8 g/dL (3.4-5.0); Bilirubin Total 0.3 mg/dL (0.2-1.0); Magnesium 1.9 mg/dL (1.8-2.4); Phosphorus 8.9 mg/dL (2.5-4.9); Potassium 5.1 mmol/L (3.5-5.1); Protein, Total 7.1 g/dL (6.4-8.2); Uric Acid 6.9 mg/dL (3.5-7.2)
[2018-09-25] MEDS: INSULIN -REGULAR HUMAN 50 UNIT/0.5 ML ML SQ SCH ×4 (07:30→21:00)
[2018-09-25] MEDS ORDERED: CEFAZOLIN/SWI 1gm 1 GM/10 ML SYR IV SCH (08:00)
[2018-09-25] MEDS: SODIUM BICARB 325 MG TAB PO SCH ×3 (08:00→17:49)
[2018-09-25] MEDS: DOXAZOSIN 2 MG TAB PO SCH ×2 (08:31→23:07)
[2018-09-25] MEDS: FAMOTIDINE 20 MG TAB PO SCH (08:31)
[2018-09-25] MEDS: ATORVASTATIN 10 MG TAB PO SCH (08:31)
[2018-09-25] MEDS: CALCITROL 0.25 MCG CAP PO SCH (08:31)
[2018-09-25] MEDS: VITAMIN D 5,000 UNIT CAP PO SCH (08:32)
[2018-09-25] MEDS: SOD FERRIC GLUC COMPLX/SUCROSE 125 MG in NA CHLORIDE 0.9% 100 ML IV SCH (09:00)
[2018-09-25] MEDS: MUPIROCIN 2% OINT 22GM TUBE TOP SCH ×2 (09:00→23:08)
[2018-09-25] MEDS: VANCOMYCIN/NS 1 gm 1 GM/250 ML BAG IVPB SCH (09:00)
[2018-09-25] MEDS ORDERED: NA CHLORIDE 0.9% 500 ML ONE (10:06)
[2018-09-25] MEDS: CEFAZOLIN SODIUM 1 GM/VIAL ONE ×2 (10:06→11:05)
[2018-09-25] MEDS ORDERED: NA CHLORIDE 0.9% 100 ML IV ONE (10:28)
[2018-09-25] MEDS ORDERED: LIDOCAINE 1% MPF 5 ML VIAL ONE (10:34)
[2018-09-25] MEDS ORDERED: MIDAZOLAM HCL 2 MG/2 ML INJ ONE (10:34)
[2018-09-25] MEDS ORDERED: FENTANYL CITR 100 MCG/2 ML ONE (10:34)
[2018-09-25] MEDS ORDERED: PROPOFOL 200 MG/20 ML VIAL IV ONE (10:34)
[2018-09-25] MEDS: LIDOCAINE 1% 20 ML MDV ONE ×3 (10:34→11:29)
[2018-09-25] MEDS: HEPARIN 5000 UNIT/ML 1 ML VIAL ONE ×3 (10:35→11:35)
--- NOTE | 2018-09-25 11:40 | P.OP ---
Preoperative diagnosis: ARF Postoperative diagnosis: same Primary procedure: VIC HERNANDEZ, Fluoroscopy Anesthesia: General Estimated blood loss: min Specimen: none Findings: as above Complications: None Transferred to: Recovery Room Condition: Good
[2018-09-25] MEDS ORDERED: ONDANSETRON 4 MG/2 ML VIAL ONE (11:42)
--- NOTE | 2018-09-25 11:44 | P.PN ---
Subjective Date of Service: 09/25/18 Primary Care Provider: Dr. Vilchis Chief Complaint: diabetic foot ulcer Subjective: Doing well Physical Examination - Vital Signs Temperature: 98.4 F Blood Pressure: 161/91 Pulse: 78 Respirations: 18 Pulse Ox (%): 98 - Physical Exam General: Alert, In no apparent distress, Oriented x3, Cooperative HEENT: Atraumatic Neck: Supple Respiratory: Clear to auscultation bilaterally, Normal air movement Cardiovascular: Normal pulses, Regular rate/rhythm Gastrointestinal: Normal bowel sounds, Soft and benign, Non-distended Neurological: Other (Slight agitation) - Studies Medications List Reviewed: Yes Assessment & Plan Discharge Plan: Other (Long-term acute care facility verses home with IV antibiotic therapy) Plan to discharge in: Greater than 2 days Physician Review Additional Text: Impression: Osteomyelitis involving the 5th metatarsal head and neck region as well as distal aspect of proximal phalanx of the 5th toe Acute on chronic renal disease stage 5 Diabetes mellitus type 2 Hypertension Hyperlipidemia Obesity, BMI 34.9 Acute on chronic iron deficiency anemia Plan: Osteomyelitis involving the 5th metatarsal head and neck region as well as distal aspect of proximal phalanx of the 5th toe, wound culture shows Morganella : Continue IV antibiotic therapy. Await culture results from I and D to determine long-term IV antibiotic therapy coverage. Case discussed with surgery. Patient will require IV antibiotic therapy. Patient will get dialysis catheter placed today to start long-term dialysis. Case discussed with surgery and nephrology Acute on chronic renal disease stage 5 with noted hyperkalemia: Renal function still compromised. Case discussed at length with patient. Told him dialysis is required. Patient will get dialysis catheter placed today. Case discussed with nephrology. Diabetes mellitus type 2: Continue Accu-Cheks and sliding scale. Hypertension: Hydrochlorothiazide and Arb inhibitor discontinued. Continue with metoprolol. Will provide IV medication as needed. Hyperlipidemia: Continue home medication Obesity, BMI 34.9: Will address lifestyle modification education. Acute on chronic Iron deficiency anemia: Continue with IV iron supplementation. Will monitor hemoglobin closely. Time Spent Managing Pts Care (In Minutes): 55
--- NOTE | 2018-09-25 12:07 | RAD REPORT ---
EXAM DESCRIPTION: RAD - Fluoroscopy <1 Hour - 09/25/2018 11:53 am CLINICAL HISTORY: Venous catheter insertion. TESSIO PLACEMENT COMPARISON: No comparisons FINDINGS: Fluoroscopic imaging is submitted from placement of a venous catheter. Details of the pro cedure not available. Fluoroscopy time: 0.1 minutes.
--- NOTE | 2018-09-25 12:07 | RAD REPORT ---
EXAM DESCRIPTION: RAD - Chest Single View - 09/25/2018 12:02 pm CLINICAL HISTORY: s/p Tesio Chest pain. COMPARISON: Chest Single View dated 09/20/2018; Chest Pa And Lat (2 Views) dated 01/07/2018; CHEST SING LE VIEW dated 06/30/2014 FINDINGS: Portable technique limits examination quality. Right-sided venous catheter is in place with tip in the SVC. No pneumothorax is present.
[2018-09-25] MEDS ORDERED: NA CHLORIDE 0.9% 1,000 ML IV PRN (15:14)
[2018-09-25] MEDS ORDERED: MANNITOL 25% 12.5 GM/50 ML VIAL IV PRN (15:14)
[2018-09-25] MEDS ORDERED: EPOETIN ALFA 10,000 UNIT/ML VIAL IV SCH (15:15)
[2018-09-25] MEDS ORDERED: ALBUMIN HUMAN 25% 50 ML IV SCH (16:00)
[2018-09-25] MEDS: ENOXAPARIN 30 MG/0.3 ML SQ SCH (17:47)
--- NOTE | 2018-09-25 17:54 | OP ---
Date of Procedure: 09/25/2018 Surgeon: Gunner Saenz MD Preoperative Diagnosis: Acute renal failure. Postoperative Diagnosis: Acute renal failure. Procedures: Placement of right internal jugular Tesio catheter. Interpretation of intraoperative fl uoroscopy. Estimated Blood Loss: Minimal. Specimen: None. Findings: Normal anatomy. Anesthesia: General. Complications: None. Disposition: The patient tolerated the procedure in stable condition and taken to Recovery in good g eneral condition. Procedure In Detail: The patient was brought to the OR, placed in supine position. General anesthes ia was begun. The patient was prepped and draped in usual sterile fashion. Lidocaine 1% infiltrated locally. An 18-gauge needle was used to access the right IJ vein. Guidewire was passed. Position was confirmed with fluoroscopy. A counterincision was made. Tunneling device was used to tunnel the catheter between the 2 wounds. Seldinger technique was used. Vein dilated, and then tip of the cat heter placed in the SVC under fluoroscopy. Catheter flushed with heparin and packed with heparin wit h good blood flow. Then, 3-0 chromic used to approximate the subcutaneous tissue and close the skin. 3-0 nylon used to secure the tube to the chest wall. Sterile dressing was applied. The patient was awakened and taken to Recovery in good general condition. Chest x-ray has been ordered. /MODL Voice ID: [id number] Report ID: [id number]
[2018-09-25 19:59] LABS: P-ANCA Anti-Myeloperoxidase Ab <1.0 AI (<1.0)
--- NOTE | 2018-09-25 22:12 | P.PN ---
Date of Service: 09/25/18 Vital Signs Temp Pulse Resp BP Pulse Ox 98.6 F 77 18 156/87 H 100 09/25/18 20:00 09/25/18 20:00 09/25/18 20:00 09/25/18 20:00 09/25/18 20:00 Medications Acetaminophen (Tylenol -Extra Strength) 500 mg PO Q6H PRN PRN Reason: pain/fever Stop: 10/20/18 22:28 Last Admin: 09/23/18 02:11 Dose: 500 mg Hydrocodone Bitart/Acetaminophen ([place] 7.5/325 Mg) 1 tab PO Q6H PRN PRN Reason: Pain scale 5-7 (Moderate) Stop: 10/22/18 16:25 Alprazolam (Xanax) 0.25 mg PO TID PRN PRN Reason: ANXIETY Stop: 10/22/18 16:27 Atorvastatin Calcium (Lipitor) 10 mg PO DAILY [facility] Stop: 10/21/18 09:01 Last Admin: 09/25/18 08:31 Dose: Not Given Calcitriol (Rocaltrol) 0.5 mcg PO DAILY [facility] Stop: 10/23/18 09:01 Last Admin: 09/25/18 08:31 Dose: Not Given Chlorhexidine Gluconate (Betasept) 1 appl TOP UD [facility] Stop: 10/23/18 19:01 Cholecalciferol (Vitamin D 5,000 Iu Cap) 5,000 unit PO DAILY [facility] Stop: 10/21/18 09:01 Last Admin: 09/25/18 08:32 Dose: Not Given Dextrose (Dextrose 50% Syringe) 12.5 gm IV PRN PRN; Protocol PRN Reason: HYPOGLYCEMIA Stop: 10/21/18 18:32 Last Admin: 09/22/18 12:27 Dose: 12.5 gm Doxazosin Mesylate (Cardura) 2 mg PO BID [facility] Stop: 10/22/18 22:16 Last Admin: 09/25/18 08:31 Dose: Not Given Enoxaparin Sodium (Lovenox 30 Mg Inj) 30 mg SQ DAILY 5 PM [facility] Stop: 10/22/18 17:01 Last Admin: 09/25/18 17:47 Dose: 30 mg Epoetin [place] (Procrit) 10,000 unit IV EVERY HD [facility] Stop: 04/20/19 15:16 Famotidine (Pepcid) 20 mg PO DAILY [facility] Stop: 10/23/18 09:01 Last Admin: 09/25/18 08:31 Dose: Not Given Furosemide (Lasix) 40 mg IV Q8HR [facility] Stop: 10/25/18 01:01 Last Admin: 09/25/18 17:00 Dose: Not Given Glucagon (Glucagen) 1 mg IM 1X PRN; Protocol PRN Reason: HYPOGLYCEMIA Stop: 10/21/18 18:32 Heparin Sodium (Porcine) (Heparin 1,000 Units/Ml) 6,000 unit IV EVERY HD PRN PRN Reason: FLUSH AFTER EACH USE Stop: 10/25/18 15:15 Hydralazine HCl (Apresoline) 10 mg IV Q6HP PRN PRN Reason: Titrate to SBP (MUST DEFINE) Stop: 10/22/18 16:18 Last Admin: 09/22/18 21:38 Dose: 10 mg Hydromorphone HCl (Dilaudid) 1 mg IV Q6H PRN PRN Reason: Pain scale 5-7 (Moderate) Stop: 10/23/18 18:42 Vancomycin HCl (Vancomycin 1 Gm/250 Ml Ns Ivpb) 1 gm in 250 mls @ 166.667 mls/ hr IVPB Q48H [facility]; Protocol Stop: 10/23/18 09:01 Last Admin: 09/25/18 09:00 Dose: Not Given Levofloxacin/Dextrose (Levaquin 250mg/50 Ml Ivpb) 250 mg in 50 mls @ 50 mls/hr IV Q48H [facility]; Protocol Stop: 10/23/18 06:01 Last Admin: 09/25/18 06:14 Dose: 50 mls Ferric Sodium Gluconate Complex 125 mg/ Sodium Chloride 110 mls @ 100 mls/hr IV DAILY [facility] Stop: 09/30/18 10:05 Last Admin: 09/25/18 09:00 Dose: Not Given Albumin Human (Albumin 25%) 50 mls @ 100 mls/hr IV EVERY HD [facility] Stop: 10/25/18 16:01 Sodium Chloride (Ns 1000 Ml Ivbag) 1,000 mls @ 0 mls/hr IV .Q0M PRN PRN Reason: Priming and BP support at HD Stop: 09/25/18 23:59 Insulin Human Regular (Novolin -R) 0 unit SQ ACHS [facility]; Protocol Stop: 10/21/18 21:01 Last Admin: 09/25/18 17:47 Dose: 2 unit Mannitol (Mannitol 12.5 Gm/50 Ml Vial) 12.5 gm IV EVERY HD PRN PRN Reason: Titrate to SBP (MUST DEFINE) Stop: 10/25/18 15:15 Metoprolol Tartrate (Lopressor) 50 mg PO BID 6AM 6PM [facility] Stop: 10/23/18 06:01 Last Admin: 09/25/18 17:39 Dose: Not Given Morphine Sulfate (Morphine Sulfate) 2 mg IV Q4H PRN PRN Reason: Pain scale 5-7 (Moderate) Stop: 10/20/18 22:28 Mupirocin (Bactroban 2% Ointment) 1 appl TOP BID [facility] Stop: 10/23/18 21:01 Last Admin: 09/25/18 09:00 Dose: Not Given Ondansetron HCl (Zofran) 4 mg IV Q8H PRN PRN Reason: NAUSEA / VOMITING Stop: 10/20/18 22:28 Sodium Bicarbonate (Sodium Bicarb 325 Mg) 650 mg PO TIDWM [facility] Stop: 10/22/18 22:16 Last Admin: 09/25/18 17:49 Dose: 650 mg Sodium Chloride (Normal Saline Flush) 10 ml IV BID [facility] Stop: 10/21/18 09:01 Last Admin: 09/25/18 08:31 Dose: Not Given Tramadol HCl (Ultram) 50 mg PO TID PRN PRN Reason: Pain scale 2-4 (Mild) Stop: 10/22/18 16:25 Microbiology Results 09/20/18 21:02 Blood - Blood Aerobic Blood Culture - Final No growth in 5 days. 09/20/18 21:02 Blood - Blood Anaerobic Blood Culture - Final No growth in 5 days. 09/20/18 20:43 Blood - Blood Aerobic Blood Culture - Final No growth in 5 days. 09/20/18 20:43 Blood - Blood Anaerobic Blood Culture - Final No growth in 5 days. 09/20/18 20:07 Wound - Left Foot Gram Stain - Final 09/20/18 20:07 Wound - Left Foot Culture & Sensitivity - Final Morganella Morganii Assessment/ Plan: Nephrology. Feeling better. Pain controlled. CPS stable without CP or SOB. +Edema No acute events overnight. HD CVC placed today. Vitals, medications, blood work and imaging reviewed in the chart. NAD. NCAT. MMM. Neck supple. CTA. RRR. Soft Abd. No C/C. LE Edema 2+. Left foot ulcer. Right foot ulcer. AAO. Normal speech. EXAM DESCRIPTION: US - Renal Ultrasound-Complete - 09/21/2018 11:16 pm CLINICAL HISTORY: Acute renal insufficiency COMPARISON: None. FINDINGS: The right kidney measures 13 cm with an increased echotexture. The left kidney measures 11 cm with an increased echotexture. Hydronephrosis is not seen. The bladder is poorly evaluated as it is decompressed IMPRESSION: No significant abnormalities displayed A/ ESRD. Dialysis initiated [id number]. CKD V with proteinuria. DM II with CKD. HTN with CKD. Acidosis. Hyperkalemia. Hypocalcemia. Hypomagnesemia. Anemia in chronic illness. Iron deficiency. Left foot osteomyelitis (MRI). Right foot ulcer. P/ Continue current POC and Medications. Follow up with surgery. Wound care as ordered. 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 Should be able to get abx at dialysis. Counseled regarding different dialysis options. Hepatitis status pending. No NSAIDs. AM labs. Daily weight. Case discussed with Dr. Morgan and Dr. Galvan. Arrange placement at the [facility].
[2018-09-26] MEDS: FUROSEMIDE 40 MG/4 ML VIAL IV SCH ×3 (01:09→18:03)
[2018-09-26] MEDS: METOPROLOL TAR 25 MG TAB PO SCH ×2 (06:04→18:03)
[2018-09-26 06:59] LABS: Absolute Lymphocytes (CBC) 0.9 K/uL (0.7-4.9); Absolute Monocytes 0.7 K/uL (0.1-1.3); Absolute Neutrophil 7.1 K/uL (1.8-8.0); Basophils % 0.5 % (0-1.3); Eosinophils % 4.6 % (0-4.4); Lymphocytes % 9.8 % (15.3-44.8); MPV 7.9 fL (7.6-11.3); Monocytes % 7.2 % (3.3-12.3); RBC Red Blood Cell Count 2.93 M/uL (4.33-5.43)
[2018-09-26 07:15] LABS: Magnesium 1.9 mg/dL (1.8-2.4); Potassium 4.7 mmol/L (3.5-5.1)
[2018-09-26] MEDS: INSULIN -REGULAR HUMAN 50 UNIT/0.5 ML ML SQ SCH ×4 (07:30→20:30)
[2018-09-26] MEDS: MUPIROCIN 2% OINT 22GM TUBE TOP SCH ×2 (09:00→20:25)
[2018-09-26] MEDS: SOD FERRIC GLUC COMPLX/SUCROSE 125 MG in NA CHLORIDE 0.9% 100 ML IV SCH (09:24)
[2018-09-26] MEDS: ATORVASTATIN 10 MG TAB PO SCH (09:24)
[2018-09-26] MEDS: CALCITROL 0.25 MCG CAP PO SCH (09:25)
[2018-09-26] MEDS: FAMOTIDINE 20 MG TAB PO SCH (09:25)
[2018-09-26] MEDS: VITAMIN D 5,000 UNIT CAP PO SCH (09:25)
[2018-09-26] MEDS: DOXAZOSIN 2 MG TAB PO SCH ×2 (09:25→20:24)
[2018-09-26] MEDS: SODIUM BICARB 325 MG TAB PO SCH ×3 (09:26→18:03)
[2018-09-26] MEDS ORDERED: SILVER NITRATE 1 APPL TOP ONE (12:00)
--- NOTE | 2018-09-26 17:24 | PN ---
Date of Progress Note: 09/26/2018 Subjective: The patient is awake and alert, feels better after dialysis. Objective: Vital signs: Stable. Afebrile. Laboratory Data: White count is normal. Cultures are pending. Examination of the wound revealed mi nimal oozing requiring silver nitrate and some fibrin present. Assessment: Status post incision and drainage and debridement of left foot infected wounds. Recommendations: Silver nitrate as ordered, wet-to-dry dressing changes with collagenase now. The r ight foot has a wound also with collagenase on that as well. Continue dialysis per the renal service . Discharge planning is in place. Probably will be discharged next week or later [facility]. Check the cultures and make sure he is on the appropriate antibiotic s. /MODL Voice ID: [id number] Report ID: [id number]
[2018-09-26] MEDS: ENOXAPARIN 30 MG/0.3 ML SQ SCH (18:02)
--- NOTE | 2018-09-26 20:45 | PN ---
Date of Progress Note: 09/26/2018 History: The patient is seen and examined. Chart reviewed and case discussed with RN and Dr. Iraj lopez as well as Dr. Saenz. The patient tolerated first round of dialysis well. No further complaints t susanne. at the bedside. The patient requested a different hospitalist, therefore, I have taken o jessica the case from Dr. Morgan. Medications: List reviewed. Physical Examination: Vital Signs: Temperature 97.5, heart rate 78, blood pressure 154/78, respirations 16, O2 97% on room air. General: Awake, alert, oriented x3. Obese male. BMI 35. CV: S1, S2. Regular rate and rhythm. Peripheral pulses present. Respiratory: Moving air well bilaterally. No wheezing or stridor. No use of accessory muscles. Gastrointestinal: Abdomen is soft, nontender, nondistended. Positive bowel sounds. No guarding or rigidity. Extremities: No clubbing, cyanosis. The patient has diffuse peripheral edema. Skin: Bilateral foot wounds, bandaged. No drainage. No foul odor. Neuro: Cranial nerves 2-12 intact grossly. No focal neurological deficits. Laboratory Data: Sodium 142, potassium 4.7, chloride 110, CO2 22, BUN 44, creatinine 6.62, glucose 1 14, calcium 7.5, magnesium 1.9. WBC 9.1, H and H 8.2 and 25, platelets 319, neutrophils 77%. Hepati tis panel pending. Wound culture from the left foot growing Morganella. Blood culture showed no ed wth. Tissue from the right buttock, group B strep, likely skin contaminant. Assessment And Plan: A 42-year-old male with: 1.Osteomyelitis of the fifth metatarsal head region as well the distal aspect of the proximal phalan x of the fifth toe. Wound culture growing Morganella. We will continue IV antibiotic therapy. He w ill likely need to be on vancomycin with hemodialysis as well as p.o. antibiotics. 2.Acute on chronic kidney disease, stage 5, with hyperkalemia. The patient has now been started on dialysis. The patient tolerated dialysis well. Appreciate Nephrology input. 3.Diabetes mellitus type 2 with chronic kidney disease. We will continue to monitor Accu-Cheks and continue sliding scale. 4.Hypertension. Continue hydrochlorothiazide and metoprolol. ARB held due to kidney dysfunction. Monitor. 5.Hyperlipidemia, mixed. Continue home medication. 6.Obesity, BMI 35. Counseled. 7.Acute on chronic iron deficiency anemia. Monitor hemoglobin and hematocrit and transfuse as robinson d. Plan: The patient is awaiting dialysis setup as outpatient. We will arrange for IV antibiotics as laurie peck. FIDENCIO Voice ID: [id number] Report ID: [id number]
--- NOTE | 2018-09-26 21:00 | P.PN ---
Date of Service: 09/26/18 Vital Signs Temp Pulse Resp BP Pulse Ox 97.9 F 80 16 156/77 H 98 09/26/18 16:00 09/26/18 20:24 09/26/18 16:00 09/26/18 20:24 09/26/18 16:00 Medications Acetaminophen (Tylenol -Extra Strength) 500 mg PO Q6H PRN PRN Reason: pain/fever Stop: 10/20/18 22:28 Last Admin: 09/23/18 02:11 Dose: 500 mg Hydrocodone Bitart/Acetaminophen (Tilly 7.5/325 Mg) 1 tab PO Q6H PRN PRN Reason: Pain scale 5-7 (Moderate) Stop: 10/22/18 16:25 Alprazolam (Xanax) 0.25 mg PO TID PRN PRN Reason: ANXIETY Stop: 10/22/18 16:27 Atorvastatin Calcium (Lipitor) 10 mg PO DAILY CLAUDY Stop: 10/21/18 09:01 Last Admin: 09/26/18 09:24 Dose: 10 mg Calcitriol (Rocaltrol) 0.5 mcg PO DAILY CLAUDY Stop: 10/23/18 09:01 Last Admin: 09/26/18 09:25 Dose: 0.5 mcg Chlorhexidine Gluconate (Betasept) 1 appl TOP UD CLAUDY Stop: 10/23/18 19:01 Cholecalciferol (Vitamin D 5,000 Iu Cap) 5,000 unit PO DAILY CLAUDY Stop: 10/21/18 09:01 Last Admin: 09/26/18 09:25 Dose: 5,000 unit Collagenase (Santyl Ointment) 1 appl TOP DAILY CLAUDY Stop: 10/27/18 09:01 Dextrose (Dextrose 50% Syringe) 12.5 gm IV PRN PRN; Protocol PRN Reason: HYPOGLYCEMIA Stop: 10/21/18 18:32 Last Admin: 09/22/18 12:27 Dose: 12.5 gm Doxazosin Mesylate (Cardura) 2 mg PO BID CLAUDY Stop: 10/22/18 22:16 Last Admin: 09/26/18 20:24 Dose: 2 mg Enoxaparin Sodium (Lovenox 30 Mg Inj) 30 mg SQ DAILY 5 PM CLAUDY Stop: 10/22/18 17:01 Last Admin: 09/26/18 18:02 Dose: 30 mg Epoetin Delmar (Procrit) 10,000 unit IV EVERY HD CLAUDY Stop: 10/25/18 15:16 Last Admin: 09/26/18 16:15 Dose: 10,000 unit Famotidine (Pepcid) 20 mg PO DAILY CLAUDY Stop: 10/23/18 09:01 Last Admin: 09/26/18 09:25 Dose: 20 mg Furosemide (Lasix) 40 mg IV Q8HR CLAUDY Stop: 10/25/18 01:01 Last Admin: 09/26/18 18:03 Dose: 40 mg Glucagon (Glucagen) 1 mg IM 1X PRN; Protocol PRN Reason: HYPOGLYCEMIA Stop: 10/21/18 18:32 Heparin Sodium (Porcine) (Heparin 1,000 Units/Ml) 6,000 unit IV EVERY HD PRN PRN Reason: FLUSH AFTER EACH USE Stop: 10/25/18 15:15 Last Admin: 09/26/18 16:15 Dose: 6,000 unit Hydralazine HCl (Apresoline) 10 mg IV Q6HP PRN PRN Reason: Titrate to SBP (MUST DEFINE) Stop: 10/22/18 16:18 Last Admin: 09/22/18 21:38 Dose: 10 mg Hydromorphone HCl (Dilaudid) 1 mg IV Q6H PRN PRN Reason: Pain scale 5-7 (Moderate) Stop: 10/23/18 18:42 Vancomycin HCl (Vancomycin 1 Gm/250 Ml Ns Ivpb) 1 gm in 250 mls @ 166.667 mls/ hr IVPB Q48H CLAUDY; Protocol Stop: 10/23/18 09:01 Last Admin: 09/25/18 09:00 Dose: Not Given Levofloxacin/Dextrose (Levaquin 250mg/50 Ml Ivpb) 250 mg in 50 mls @ 50 mls/hr IV Q48H CLAUDY; Protocol Stop: 10/23/18 06:01 Last Admin: 09/25/18 06:14 Dose: 50 mls Ferric Sodium Gluconate Complex 125 mg/ Sodium Chloride 110 mls @ 100 mls/hr IV DAILY [facility] Stop: 09/30/18 10:05 Last Admin: 09/26/18 09:24 Dose: 110 mls Albumin Human (Albumin 25%) 50 mls @ 100 mls/hr IV EVERY HD [facility] Stop: 10/25/18 16:01 Insulin Human Regular (Novolin -R) 0 unit SQ ACHS [facility]; Protocol Stop: 10/21/18 21:01 Last Admin: 09/26/18 20:30 Dose: 2 unit Mannitol (Mannitol 12.5 Gm/50 Ml Vial) 12.5 gm IV EVERY HD PRN PRN Reason: Titrate to SBP (MUST DEFINE) Stop: 10/25/18 15:15 Metoprolol Tartrate (Lopressor) 50 mg PO BID 6AM 6PM [facility] Stop: 10/23/18 06:01 Last Admin: 09/26/18 18:03 Dose: 50 mg Morphine Sulfate (Morphine Sulfate) 2 mg IV Q4H PRN PRN Reason: Pain scale 5-7 (Moderate) Stop: 10/20/18 22:28 Mupirocin (Bactroban 2% Ointment) 1 appl TOP BID [facility] Stop: 10/23/18 21:01 Last Admin: 09/26/18 20:25 Dose: 1 anisha Ondansetron HCl (Zofran) 4 mg IV Q8H PRN PRN Reason: NAUSEA / VOMITING Stop: 10/20/18 22:28 Sodium Bicarbonate (Sodium Bicarb 325 Mg) 650 mg PO TIDWM [facility] Stop: 10/22/18 22:16 Last Admin: 09/26/18 18:03 Dose: 650 mg Sodium Chloride (Normal Saline Flush) 10 ml IV BID [facility] Stop: 10/21/18 09:01 Last Admin: 09/26/18 20:24 Dose: 10 ml Tramadol HCl (Ultram) 50 mg PO TID PRN PRN Reason: Pain scale 2-4 (Mild) Stop: 10/22/18 16:25 Microbiology Results 09/20/18 21:02 Blood - Blood Aerobic Blood Culture - Final No growth in 5 days. 09/20/18 21:02 Blood - Blood Anaerobic Blood Culture - Final No growth in 5 days. 09/20/18 20:43 Blood - Blood Aerobic Blood Culture - Final No growth in 5 days. 09/20/18 20:43 Blood - Blood Anaerobic Blood Culture - Final No growth in 5 days. 09/20/18 20:07 Wound - Left Foot Gram Stain - Final 09/20/18 20:07 Wound - Left Foot Culture & Sensitivity - Final Morganella Morganii Assessment/ Plan: Nephrology. Feeling better. Pain controlled. CPS stable without CP or SOB. +Edema No acute events overnight. Tolerated his first HD well. Vitals, medications, blood work and imaging reviewed in the chart. NAD. NCAT. MMM. Neck supple. CTA. RRR. Soft Abd. No C/C. LE Edema 2+. Left foot ulcer. Right foot ulcer. AAO. Normal speech. EXAM DESCRIPTION: US - Renal Ultrasound-Complete - 09/21/2018 11:16 pm CLINICAL HISTORY: Acute renal insufficiency COMPARISON: None. FINDINGS: The right kidney measures 13 cm with an increased echotexture. The left kidney measures 11 cm with an increased echotexture. Hydronephrosis is not seen. The bladder is poorly evaluated as it is decompressed IMPRESSION: No significant abnormalities displayed A/ ESRD. Dialysis initiated [id number]. CKD V with proteinuria. DM II with CKD. HTN with CKD. Acidosis. Hyperkalemia. Hypocalcemia. Hypomagnesemia. Anemia in chronic illness. Iron deficiency. Left foot osteomyelitis (MRI). Right foot ulcer. P/ Continue current POC and Medications. Follow up with surgery. Wound care as ordered. Plan for assisted abx. Will be able to get abx at dialysis. Second HD today. Hepatitis status pending. No NSAIDs. AM labs. Daily weight. Case discussed with Dr. Morgan and Dr. Galvan. Arrange placement at the [facility].
[2018-09-27] MEDS: FUROSEMIDE 40 MG/4 ML VIAL IV SCH ×3 (00:25→16:33)
[2018-09-27] MEDS ORDERED: NA CHLORIDE 0.9% 250 ML ONE (01:22)
[2018-09-27 03:26] LABS: HBsAG Nonreactive (Nonreactive)
[2018-09-27 06:14] LABS: Absolute Lymphocytes (CBC) 1.1 K/uL (0.7-4.9); Absolute Monocytes 0.8 K/uL (0.1-1.3); Absolute Neutrophil 6.9 K/uL (1.8-8.0); Basophils % 0.4 % (0-1.3); Eosinophils % 3.5 % (0-4.4); Hematocrit 24.5 % (39.6-49.0); Lymphocytes % 12.5 % (15.3-44.8); MPV 7.7 fL (7.6-11.3); Monocytes % 8.4 % (3.3-12.3); RBC Red Blood Cell Count 2.85 M/uL (4.33-5.43)
[2018-09-27] MEDS: Levofloxacin 250mg IV 250 MG/50 ML BAG IV SCH (06:23)
[2018-09-27] MEDS: METOPROLOL TAR 25 MG TAB PO SCH ×2 (06:23→16:28)
[2018-09-27 06:31] LABS: Magnesium 1.8 mg/dL (1.8-2.4); Potassium 3.8 mmol/L (3.5-5.1)
[2018-09-27] MEDS: INSULIN -REGULAR HUMAN 50 UNIT/0.5 ML ML SQ SCH ×4 (07:30→20:51)
[2018-09-27] MEDS: COLLAGENASE 30 GM OINTMENT TOP SCH (09:00)
[2018-09-27] MEDS: MUPIROCIN 2% OINT 22GM TUBE TOP SCH ×2 (09:00→21:00)
[2018-09-27] MEDS ORDERED: MAGNESIUM SULFATE 1 gm IVPB 1 GM/100 ML BAG IV ONE (09:00)
[2018-09-27] MEDS: FAMOTIDINE 20 MG TAB PO SCH (09:19)
[2018-09-27] MEDS: CALCITROL 0.25 MCG CAP PO SCH (09:20)
[2018-09-27] MEDS: ATORVASTATIN 10 MG TAB PO SCH (09:20)
[2018-09-27] MEDS: SODIUM BICARB 325 MG TAB PO SCH ×2 (09:20→12:15)
[2018-09-27] MEDS: VITAMIN D 5,000 UNIT CAP PO SCH (09:20)
[2018-09-27] MEDS: DOXAZOSIN 2 MG TAB PO SCH ×2 (09:20→20:58)
[2018-09-27] MEDS: VANCOMYCIN/NS 1 gm 1 GM/250 ML BAG IVPB SCH ×2 (09:21→09:50)
[2018-09-27] MEDS: SOD FERRIC GLUC COMPLX/SUCROSE 125 MG in NA CHLORIDE 0.9% 100 ML IV SCH (09:22)
--- NOTE | 2018-09-27 11:22 | PN ---
Date of Progress Note: 09/27/2018 Subjective: The patient is awake and alert. No complaint. Objective: Vital signs: Stable. He is afebrile. General: He is awake, alert, oriented x3. Laboratory Data: Shows a white count of 9.2. His left shift is improving. His BUN and creatinine a re down to 36 and 5.71. His cultures are growing out enterococcus faecalis and Streptococcus group B , and sensitivity is reviewed. The patient is sensitive to penicillin, vancomycin, and Levaquin. He is currently on Levaquin and vancomycin. His wound was examined this morning. There was no evidenc e of any significant bleeding, minimal oozing from healthy tissue. No surrounding erythema or warmth . There is edema present, and is most likely from his underlying kidney issues. There does not appe ar to be any active infectious process present. Assessment: Status post debridement, infected wound, left foot with osteomyelitis. Recommendations: Continue IV antibiotics, offloading, wound care as ordered, and discharge planning. /MODL Voice ID: [id number] Report ID: [id number]
--- NOTE | 2018-09-27 12:52 | PN ---
Date of Progress Note: 09/27/2018 Subjective: The patient is seen and examined. Chart reviewed and case discussed with RN and Dr. Alin rivera. The patient is doing well with dialysis. No further complaints. Medications: List reviewed. Physical Examination: Vital Signs: Temperature 97.9, heart rate 78, blood pressure 166/88, respirations 20, O2 96% on room air. General: Obese male. BMI greater than 30. CV: S1, S2. No murmurs. Peripheral pulses present. Respiratory: Moving air well bilaterally. No wheezing or stridor. Gastrointestinal: Abdomen is soft, nontender, nondistended. Positive bowel sounds. Extremities: No clubbing or cyanosis. 3+ pedal edema. Neurologic: Nonfocal. Skin: Multiple ulcerations on both feet, plantar aspect. Wounds are dressed. No drainage. Laboratory Data: Sodium 141, potassium 3.8, chloride 106, CO2 26, BUN 36, creatinine 5.71, glucose 1 91, calcium 7.2, magnesium 1.8. WBC 9.2, H and H 8.2/24.5, platelets 286, neutrophils 75%. Wound cu lture tissue from the right buttock is growing Enterococcus faecalis. Other wound cultures are growi ng Enterococcus and Streptococcus agalactiae. Wound from the left foot is growing Morganella morgani i. Assessment: A 42-year-old male with: 1.Osteomyelitis of the fifth metatarsal head region as well as the distal aspect of the proximal pha lanx of the fifth toe. Wound culture grows Morganella. We will continue antibiotics. 2.Acute on chronic kidney disease stage 5 with hyperkalemia. Now on dialysis. Tolerating sessions well. Awaiting set up for outpatient dialysis. 3.Diabetes mellitus type 2 with chronic kidney disease. Monitor Accu-Cheks and continue sliding sca le. 4.Hypertension. We will continue medications. Stable. 5.Hyperlipidemia, mixed. Continue statin. 6.Obesity, BMI 35. 7.Acute on chronic iron deficiency anemia. Monitor H and H, transfuse as needed. Plan: We will discharge to home once dialysis has been set up. The patient will likely be discharge d on IV antibiotics, vancomycin with dialysis and oral Levaquin. SA/MODL Voice ID: [id number] Report ID: [id number]
--- NOTE | 2018-09-27 15:52 | P.PN ---
Subjective Date of Service: 09/27/18 Primary Care Provider: Dr. Vilchis Chief Complaint: ESRD Feels well Review of Systems General: Unremarkable Respiratory: Unremarkable Cardiovascular: Unremarkable Gastrointestinal: Unremarkable Musculoskeletal: Unremarkable Neurological: Unremarkable Physical Examination - Vital Signs Temperature: 97.7 F Blood Pressure: 181/94 Pulse: 76 Respirations: 20 Pulse Ox (%): 98 - Physical Exam General: Alert, In no apparent distress HEENT: Atraumatic Neck: Supple Respiratory: Clear to auscultation bilaterally Cardiovascular: No edema Gastrointestinal: Normal bowel sounds, Soft and benign Musculoskeletal: No clubbing, No swelling, Other (feet wrapped) - Studies Medications List Reviewed: Yes Assessment & Plan - Problems (Diagnosis) (1) ESRD (end stage renal disease) Current Visit: Yes Status: Acute Plan: Place at [facility] Oral bicarb d/c'd On iron and epo for anemia Start phoslo with meals for phos control Amlodipine 5mg added Physician Review Additional Text: Impression: Osteomyelitis involving the 5th metatarsal head and neck region as well as distal aspect of proximal phalanx of the 5th toe Acute on chronic renal disease stage 5 Diabetes mellitus type 2 Hypertension Hyperlipidemia Obesity, BMI 34.9 Acute on chronic iron deficiency anemia Plan: Osteomyelitis involving the 5th metatarsal head and neck region as well as distal aspect of proximal phalanx of the 5th toe, wound culture shows Morganella : Continue IV antibiotic therapy. Await culture results from I and D to determine long-term IV antibiotic therapy coverage. Case discussed with surgery. Patient will require IV antibiotic therapy. Patient will get dialysis catheter placed today to start long-term dialysis. Case discussed with surgery and nephrology Acute on chronic renal disease stage 5 with noted hyperkalemia: Renal function still compromised. Case discussed at length with patient. Told him dialysis is required. Patient will get dialysis catheter placed today. Case discussed with nephrology. Diabetes mellitus type 2: Continue Accu-Cheks and sliding scale. Hypertension: Hydrochlorothiazide and Arb inhibitor discontinued. Continue with metoprolol. Will provide IV medication as needed. Hyperlipidemia: Continue home medication Obesity, BMI 34.9: Will address lifestyle modification education. Acute on chronic Iron deficiency anemia: Continue with IV iron supplementation. Will monitor hemoglobin closely.
[2018-09-27] MEDS: ENOXAPARIN 30 MG/0.3 ML SQ SCH (16:26)
[2018-09-27] MEDS: CA ACETATE 667 MG CAP PO SCH (16:27)
[2018-09-28] MEDS: FUROSEMIDE 40 MG/4 ML VIAL IV SCH ×3 (01:15→19:06)
[2018-09-28] MEDS: METOPROLOL TAR 25 MG TAB PO SCH ×2 (05:23→19:07)
[2018-09-28 05:45] LABS: Absolute Lymphocytes (CBC) 1.3 K/uL (0.7-4.9); Absolute Monocytes 0.8 K/uL (0.1-1.3); Absolute Neutrophil 7.9 K/uL (1.8-8.0); Basophils % 0.5 % (0-1.3); Eosinophils % 4.3 % (0-4.4); Hematocrit 24.4 % (39.6-49.0); Lymphocytes % 12.1 % (15.3-44.8); MPV 7.3 fL (7.6-11.3); Monocytes % 7.7 % (3.3-12.3); RBC Red Blood Cell Count 2.81 M/uL (4.33-5.43)
[2018-09-28 05:55] LABS: Potassium 3.8 mmol/L (3.5-5.1)
[2018-09-28] MEDS: INSULIN -REGULAR HUMAN 50 UNIT/0.5 ML ML SQ SCH ×4 (07:30→21:00)
[2018-09-28] MEDS: MUPIROCIN 2% OINT 22GM TUBE TOP SCH ×2 (09:00→21:00)
[2018-09-28] MEDS ORDERED: AMLODIPINE 5 MG TAB PO SCH (09:00)
[2018-09-28] MEDS: COLLAGENASE 30 GM OINTMENT TOP SCH (09:00)
[2018-09-28] MEDS: SOD FERRIC GLUC COMPLX/SUCROSE 125 MG in NA CHLORIDE 0.9% 100 ML IV SCH (09:51)
[2018-09-28] MEDS: ATORVASTATIN 10 MG TAB PO SCH (09:52)
[2018-09-28] MEDS: CALCITROL 0.25 MCG CAP PO SCH (09:52)
[2018-09-28] MEDS: FAMOTIDINE 20 MG TAB PO SCH (09:52)
[2018-09-28] MEDS: CA ACETATE 667 MG CAP PO SCH ×3 (09:52→19:07)
[2018-09-28] MEDS: DOXAZOSIN 2 MG TAB PO SCH ×2 (09:53→21:42)
[2018-09-28] MEDS: VITAMIN D 5,000 UNIT CAP PO SCH (09:53)
--- NOTE | 2018-09-28 14:06 | PN ---
Date of Progress Note: 09/28/2018 History Of Present Illness: Patient seen and examined. Chart reviewed and case discussed with RN. The patient is doing well. No acute events overnight. Tolerating dialysis. Medications: List reviewed. Physical Examination: Vital Signs: Temperature 98.4, heart rate 73, blood pressure 165/78, respirations 20, O2 97% on room air. General: Awake, alert, oriented x3, not in any acute distress. Obese male. CV: S1 and S2. Regular rate and rhythm. Peripheral pulses present. Respiratory: Moving air well bilaterally. No wheezing or stridor. Gastrointestinal: Abdomen is soft, nontender, nondistended. Positive bowel sounds. Extremities: No clubbing, cyanosis. The patient does have peripheral edema. Neurologic: Nonfocal. Skin: The patient has wounds on bilateral feet bandaged. Left foot bandage has some blood soaking t hrough. No pustular drainage apparent. Laboratory Data: Sodium 141, potassium 3.8, chloride 107, CO2 26, BUN 39, creatinine 6.54, glucose 1 36, calcium 7.6. WBC 10.5, H and H 8.1/24.4, platelets 264, neutrophils 74%. Tissue from the right foot showing Enterococcus faecalis, Streptococcus agalactiae, and MRSA. Wound cultures growing Enter ococcus and strep agalactiae, and wound from the left foot is growing Morganella morganii. Assessment And Plan: A 42-year-old male with: 1.Osteomyelitis of the 5th metatarsal head region as well as the distal aspect of the proximal phala nx of the 5th toe. Wound cultures growing Morganella, strep, and methicillin-resistant Staphylococcu s aureus. We will continue antibiotics. We will need to switch over to vancomycin. 2.Hthyh-ji-pbapjyn kidney disease stage 5 with hyperkalemia, now on dialysis, tolerating hemodialysi s sessions. Appreciate Nephrology input. 3.Diabetes mellitus type 2 with chronic kidney disease. Continue sliding scale insulin and monitor Accu-Cheks. 4.Hypertension, stable on home medications. 5.Mixed hyperlipidemia. Continue statin. 6.Obesity. BMI 35. 7.Nqsxn-rp-rrbnamo iron deficiency anemia. Monitor H and H and transfuse as needed. Plan: Continue with IV antibiotics. Adjust as required by cultures. Discharge home once outpatient dialysis has been set up. The patient will need wound care. SA/MODL Voice ID: [id number] Report ID: [id number]
--- NOTE | 2018-09-28 14:27 | PN ---
Date of Progress Note: 09/28/2018 Subjective: The patient is awake, alert. No complaint. Objective: Vital Signs: Stable, afebrile. Laboratory Data: Reviewed. White count is normal. There is slight left shift. H and H are stable. Examination of the wound reveals minimal oozing in the superior aspect of the lateral wound, which is easily controlled with silver nitrate. There is no surrounding erythema, warmth. There is edema an d there is no purulent discharge. Assessment: Status post debridement of left foot infected wound x2, and then osteomyelitis. Recommendations: Wound care as ordered. Discharge planning. We will consider wound VAC tomorrow, a nd [facility] discharge. /MODL Voice ID: [id number] Report ID: [id number]
[2018-09-28] MEDS: ENOXAPARIN 30 MG/0.3 ML SQ SCH (19:07)
[2018-09-28] MEDS ORDERED: VANCOMYCIN/NS 1 gm 1 GM/250 ML BAG IVPB SCH (21:00)
--- NOTE | 2018-09-29 00:30 | PN ---
Subjective: The patient is seen at the bedside. The patient did not receive dialysis yesterday due to acute needs for ICU patients and the patient's dialysis will be today. The patient feels well. H e denies any fevers, chills, chest pain, shortness of breath, nausea, vomiting, or diarrhea. The pat barbra is currently receiving his IV iron infusion and tolerating that well. The patient has also init iated PhosLo tablets and is tolerating that as well. Objective: Vital Signs: Blood pressure is 185/98, pulse 72, temperature 98.4. General: No acute distress. Heart: Regular rate and rhythm. No murmurs, rubs, or gallops. Lungs: Clear to auscultation bilaterally. Abdomen: Soft, nontender, nondistended. Positive bowel sounds x4. Extremities: No significant edema. Laboratory Data: CBC, hemoglobin 8.1, hematocrit 24.4. Serum chemistry was reviewed. Potassium 3.8 , BUN and creatinine 39/6.54. Medications: Current medications were reviewed. Impression: 1.End-stage renal disease, on hemodialysis. 2.Uncontrolled hypertension. 3.Anemia with iron deficiency. 4.Renal mineral bone disorder. Plan: The patient will receive dialysis today. Continue current regimen. The patient to be placed in dialysis unit later this week. We will continue to follow. ELVIS Voice ID: [id number] Report ID: [id number]
[2018-09-29] MEDS: FUROSEMIDE 40 MG/4 ML VIAL IV SCH ×3 (00:47→18:24)
[2018-09-29] MEDS: METOPROLOL TAR 25 MG TAB PO SCH ×2 (06:07→18:23)
[2018-09-29] MEDS: Levofloxacin 250mg IV 250 MG/50 ML BAG IV SCH (06:09)
[2018-09-29 06:35] LABS: Absolute Lymphocytes (CBC) 1.3 K/uL (0.7-4.9); Absolute Monocytes 0.7 K/uL (0.1-1.3); Absolute Neutrophil 7.3 K/uL (1.8-8.0); Basophils % 0.7 % (0-1.3); Eosinophils % 3.8 % (0-4.4); Hematocrit 26.9 % (39.6-49.0); MPV 7.4 fL (7.6-11.3); Monocytes % 7.2 % (3.3-12.3); RBC Red Blood Cell Count 3.12 M/uL (4.33-5.43)
[2018-09-29 06:52] LABS: Potassium 4.2 mmol/L (3.5-5.1)
[2018-09-29] MEDS: INSULIN -REGULAR HUMAN 50 UNIT/0.5 ML ML SQ SCH ×4 (07:30→22:04)
[2018-09-29] MEDS: VITAMIN D 5,000 UNIT CAP PO SCH (09:25)
[2018-09-29] MEDS: DOXAZOSIN 2 MG TAB PO SCH ×2 (09:25→22:00)
[2018-09-29] MEDS: CA ACETATE 667 MG CAP PO SCH ×3 (09:25→18:24)
[2018-09-29] MEDS: ATORVASTATIN 10 MG TAB PO SCH (09:26)
[2018-09-29] MEDS: MUPIROCIN 2% OINT 22GM TUBE TOP SCH ×2 (09:26→21:00)
[2018-09-29] MEDS: CALCITROL 0.25 MCG CAP PO SCH (09:26)
[2018-09-29] MEDS: AMLODIPINE 10 MG TAB PO SCH (09:26)
[2018-09-29] MEDS: COLLAGENASE 30 GM OINTMENT TOP SCH (09:27)
[2018-09-29] MEDS: SOD FERRIC GLUC COMPLX/SUCROSE 125 MG in NA CHLORIDE 0.9% 100 ML IV SCH (09:27)
[2018-09-29] MEDS: FAMOTIDINE 20 MG TAB PO SCH (09:29)
[2018-09-29] MEDS ORDERED: VANCOMYCIN/NS 1 gm 1 GM/250 ML BAG IVPB SCH (15:00)
[2018-09-29] MEDS: ENOXAPARIN 30 MG/0.3 ML SQ SCH (18:25)
--- NOTE | 2018-09-29 19:07 | PN ---
Date of Progress Note: 09/29/2018 Subjective: The patient seen and examined. Chart reviewed and case discussed with RN and Dr. Saenz. The patient is doing well, tolerating his dialysis. Medications: List reviewed. Physical Examination: Vital Signs: Temperature 98, heart rate 59, blood pressure 169/91, respirations 16, O2 99% on room a ir. General: Awake, alert, oriented x3. Obese male. BMI 33. CV: S1 and S2. Regular rate and rhythm. Peripheral pulses present. Respiratory: Moving air well bilaterally. No wheezing or stridor. Gastrointestinal: Abdomen is soft, nontender, nondistended. Positive bowel sounds. Extremities: No clubbing, cyanosis. The patient has peripheral edema bilaterally. Neurologic: Nonfocal. Skin: Bilateral feet bandaged, clean, dry and intact. Laboratory Data: Sodium 143, potassium 4.2, chloride 107, CO2 30, BUN 24, creatinine 5.07, glucose 1 73, calcium 8.1. WBC 9.7, H and H 9.1 and 26.9, platelets 307, neutrophils 75%. Wound cultures, Ent erococcus faecalis and Streptococcus. Wound culture from the left foot growing Morganella Morgagni. Assessment And Plan: A 42-year-old male with: 1.Osteomyelitis of the fifth metatarsal head region as well as distal aspect of the proximal phalanx of the fifth toe. Wound culture growing Morganella, strep and methicillin-resistant Staphylococcus aureus. We will continue antibiotics, currently on vancomycin and Levaquin. The patient will contin ue vancomycin with dialysis and oral Levaquin for a total of 6 weeks. The patient to follow up with Dr. Saenz [facility]. Wound care as per Surgery. 2.Acute on chronic kidney disease, stage 5 with hyperkalemia, tolerating dialysis. Appreciate Dr. Gal steiner's input. The patient is awaiting outpatient dialysis chair time. 3.Diabetes mellitus type 2 with chronic kidney disease. Continue sliding scale insulin and monitor Accu-Cheks. 4.Essential hypertension, stable on home medications. 5.Mixed hyperlipidemia. We will continue statin. 6.Obesity, BMI 33. 7.Acute on chronic iron deficiency anemia. We will monitor H and H, transfuse as needed for hemoglo bin less than 7. Plan: Discharge home. Outpatient dialysis has been set up with long-term IV antibiotics. SA/MODL Voice ID: [id number] Report ID: [id number]
--- NOTE | 2018-09-29 20:29 | P.PN ---
Date of Service: 09/29/18 Vital Signs Temp Pulse Resp BP Pulse Ox 99.1 F 73 16 134/74 98 09/29/18 16:00 09/29/18 18:24 09/29/18 16:00 09/29/18 18:24 09/29/18 16:00 Medications Acetaminophen (Tylenol -Extra Strength) 500 mg PO Q6H PRN PRN Reason: pain/fever Stop: 10/20/18 22:28 Last Admin: 09/23/18 02:11 Dose: 500 mg Amlodipine Besylate (Norvasc) 10 mg PO DAILY CLAUDY Stop: 10/29/18 09:01 Last Admin: 09/29/18 09:26 Dose: 10 mg Atorvastatin Calcium (Lipitor) 10 mg PO DAILY CLAUDY Stop: 10/21/18 09:01 Last Admin: 09/29/18 09:26 Dose: 10 mg Calcitriol (Rocaltrol) 0.5 mcg PO DAILY CLAUDY Stop: 10/23/18 09:01 Last Admin: 09/29/18 09:26 Dose: 0.5 mcg Calcium Acetate (Phoslo) 667 mg PO TIDWM CLAUDY Stop: 10/27/18 17:01 Last Admin: 09/29/18 18:24 Dose: 667 mg Chlorhexidine Gluconate (Betasept) 1 appl TOP UD CLAUDY Stop: 10/23/18 19:01 Cholecalciferol (Vitamin D 5,000 Iu Cap) 5,000 unit PO DAILY CLAUDY Stop: 10/21/18 09:01 Last Admin: 09/29/18 09:25 Dose: 5,000 unit Collagenase (Santyl Ointment) 1 appl TOP DAILY CLAUDY Stop: 10/27/18 09:01 Last Admin: 09/29/18 09:27 Dose: 1 appl Dextrose (Dextrose 50% Syringe) 12.5 gm IV PRN PRN; Protocol PRN Reason: HYPOGLYCEMIA Stop: 10/21/18 18:32 Last Admin: 09/22/18 12:27 Dose: 12.5 gm Doxazosin Mesylate (Cardura) 2 mg PO BID CLAUDY Stop: 10/22/18 22:16 Last Admin: 09/29/18 09:25 Dose: 2 mg Enoxaparin Sodium (Lovenox 30 Mg Inj) 30 mg SQ DAILY 5 PM CLAUDY Stop: 10/22/18 17:01 Last Admin: 09/29/18 18:25 Dose: 30 mg Epoetin Delmar (Procrit) 10,000 unit IV EVERY HD CLAUDY Stop: 10/25/18 15:16 Last Admin: 09/26/18 16:15 Dose: 10,000 unit Famotidine (Pepcid) 20 mg PO DAILY CLAUDY Stop: 10/23/18 09:01 Last Admin: 09/29/18 09:29 Dose: 20 mg Furosemide (Lasix) 40 mg IV Q8HR CLAUDY Stop: 10/25/18 01:01 Last Admin: 09/29/18 18:24 Dose: 40 mg Glucagon (Glucagen) 1 mg IM 1X PRN; Protocol PRN Reason: HYPOGLYCEMIA Stop: 10/21/18 18:32 Heparin Sodium (Porcine) (Heparin 1,000 Units/Ml) 6,000 unit IV EVERY HD PRN PRN Reason: FLUSH AFTER EACH USE Stop: 10/25/18 15:15 Last Admin: 09/26/18 16:15 Dose: 6,000 unit Hydralazine HCl (Apresoline) 10 mg IV Q6HP PRN PRN Reason: Titrate to SBP (MUST DEFINE) Stop: 10/22/18 16:18 Last Admin: 09/22/18 21:38 Dose: 10 mg Levofloxacin/Dextrose (Levaquin 250mg/50 Ml Ivpb) 250 mg in 50 mls @ 50 mls/hr IV Q48H CLAUDY; Protocol Stop: 10/23/18 06:01 Last Admin: 09/29/18 06:09 Dose: 50 mls Albumin Human (Albumin 25%) 50 mls @ 100 mls/hr IV EVERY HD CLAUDY Stop: 10/25/18 16:01 Vancomycin HCl (Vancomycin 1 Gm/250 Ml Ns Ivpb) 1 gm in 250 mls @ 166.667 mls/ hr IVPB AFTER EACH DIALYSIS CLAUDY; Protocol Stop: 10/29/18 15:01 Insulin Human Regular (Novolin -R) 0 unit SQ ACHS CLAUDY; Protocol Stop: 10/21/18 21:01 Last Admin: 09/29/18 16:30 Dose: Not Given Mannitol (Mannitol 12.5 Gm/50 Ml Vial) 12.5 gm IV EVERY HD PRN PRN Reason: Titrate to SBP (MUST DEFINE) Stop: 10/25/18 15:15 Metoprolol Tartrate (Lopressor) 50 mg PO BID 6AM 6PM [facility] Stop: 10/23/18 06:01 Last Admin: 09/29/18 18:23 Dose: 50 mg Mupirocin (Bactroban 2% Ointment) 1 appl TOP BID [facility] Stop: 10/23/18 21:01 Last Admin: 09/29/18 09:26 Dose: 1 anisha Ondansetron HCl (Zofran) 4 mg IV Q8H PRN PRN Reason: NAUSEA / VOMITING Stop: 10/20/18 22:28 Sodium Chloride (Normal Saline Flush) 10 ml IV BID [facility] Stop: 10/21/18 09:01 Last Admin: 09/29/18 09:28 Dose: 10 ml Microbiology Results 09/20/18 21:02 Blood - Blood Aerobic Blood Culture - Final No growth in 5 days. 09/20/18 21:02 Blood - Blood Anaerobic Blood Culture - Final No growth in 5 days. 09/20/18 20:43 Blood - Blood Aerobic Blood Culture - Final No growth in 5 days. 09/20/18 20:43 Blood - Blood Anaerobic Blood Culture - Final No growth in 5 days. 09/20/18 20:07 Wound - Left Foot Gram Stain - Final 09/20/18 20:07 Wound - Left Foot Culture & Sensitivity - Final Morganella Morganii Assessment/ Plan: Nephrology. Feeling better. Pain controlled. CPS stable without CP or SOB. +Edema No acute events overnight. Tolerated HD well. Vitals, medications, blood work and imaging reviewed in the chart. NAD. NCAT. MMM. Neck supple. CTA. RRR. Soft Abd. No C/C. LE Edema 2+. Left foot ulcer. Right foot ulcer. AAO. Normal speech. EXAM DESCRIPTION: US - Renal Ultrasound-Complete - 09/21/2018 11:16 pm CLINICAL HISTORY: Acute renal insufficiency COMPARISON: None. FINDINGS: The right kidney measures 13 cm with an increased echotexture. The left kidney measures 11 cm with an increased echotexture. Hydronephrosis is not seen. The bladder is poorly evaluated as it is decompressed IMPRESSION: No significant abnormalities displayed A/ ESRD. Dialysis initiated [id number]. CKD V with proteinuria. DM II with CKD. HTN with CKD. Acidosis. Hyperkalemia. Hypocalcemia. Hypomagnesemia. Anemia in chronic illness. Iron deficiency. Left foot osteomyelitis (MRI). Right foot ulcer. P/ Continue current POC and Medications. Follow up with surgery. Wound care as ordered. Plan for [facility] abx. Will be able to get abx at dialysis. Hepatitis negative. No NSAIDs. AM labs. Daily weight. Arrange placement at the [facility]. Medical paperwork for his work was filled out at the bedside.
[2018-09-30] MEDS: FUROSEMIDE 40 MG/4 ML VIAL IV SCH ×3 (00:40→17:07)
[2018-09-30] MEDS: METOPROLOL TAR 25 MG TAB PO SCH ×2 (05:59→17:06)
[2018-09-30 07:05] LABS: Absolute Lymphocytes (CBC) 1.4 K/uL (0.7-4.9); Absolute Monocytes 0.7 K/uL (0.1-1.3); Absolute Neutrophil 7.8 K/uL (1.8-8.0); Basophils % 0.4 % (0-1.3); Eosinophils % 3.2 % (0-4.4); Hematocrit 28.1 % (39.6-49.0); Lymphocytes % 13.9 % (15.3-44.8); MPV 7.4 fL (7.6-11.3); Monocytes % 6.5 % (3.3-12.3); RBC Red Blood Cell Count 3.22 M/uL (4.33-5.43)
[2018-09-30 07:30] LABS: Potassium 4.2 mmol/L (3.5-5.1)
[2018-09-30] MEDS: INSULIN -REGULAR HUMAN 50 UNIT/0.5 ML ML SQ SCH ×4 (07:30→21:00)
[2018-09-30] MEDS: CALCITROL 0.25 MCG CAP PO SCH (09:00)
[2018-09-30] MEDS: MUPIROCIN 2% OINT 22GM TUBE TOP SCH ×2 (09:00→21:00)
[2018-09-30] MEDS: COLLAGENASE 30 GM OINTMENT TOP SCH (09:00)
[2018-09-30] MEDS: DOXAZOSIN 2 MG TAB PO SCH ×2 (09:34→23:43)
[2018-09-30] MEDS: FAMOTIDINE 20 MG TAB PO SCH (09:34)
[2018-09-30] MEDS: ATORVASTATIN 10 MG TAB PO SCH (09:35)
[2018-09-30] MEDS: VITAMIN D 5,000 UNIT CAP PO SCH (09:35)
[2018-09-30] MEDS: CA ACETATE 667 MG CAP PO SCH ×3 (09:35→17:06)
[2018-09-30] MEDS: AMLODIPINE 10 MG TAB PO SCH (09:35)
--- NOTE | 2018-09-30 10:38 | P.PN ---
Subjective Date of Service: 09/30/18 Primary Care Provider: Dr. Vilchis Chief Complaint: ESRD Patient seen and examined at bedside with RN. Chart reviewed. Case discussed with General Surgery and Nephrology at this time. Patient is currently awaiting chair time for hemodialysis. Has had wound VAC placed yesterday. Doing well overall overnight. No complaints to offer overnight as well. Review of Systems 10-point ROS is otherwise unremarkable Physical Examination - Vital Signs Temperature: 97.4 F Blood Pressure: 157/82 Pulse: 65 Respirations: 15 Pulse Ox (%): 97 - Physical Exam General: Alert, In no apparent distress HEENT: Atraumatic, PERRLA, EOMI Neck: Supple, JVD not distended Respiratory: Clear to auscultation bilaterally, Normal air movement Cardiovascular: Regular rate/rhythm, Normal S1 S2 Gastrointestinal: Normal bowel sounds, No tenderness Musculoskeletal: Other (Left feet wound VAC in place. Minimal drainage noted.) Integumentary: No rashes Neurological: Normal speech, Normal tone, Normal affect Lymphatics: No axilla or inguinal lymphadenopathy - Studies Medications List Reviewed: Yes Assessment And Plan - Current Problems (Diagnosis) (1) Osteomyelitis Current Visit: Yes Status: Acute Plan: Osteomyelitis of the fifth metatarsal head region as well as distal aspect of the proximal phalanx of the fifth toe. -General Surgery and Infectious Disease consulted. Appreciate the recommendations at this time -status post incision and drainage with wound VAC placement with surgery -Wound culture growing Morganella, strep and methicillin-resistant Staphylococcus aureus. -We will continue with IV vancomycin During dialysis and PO Levaquin for total of 6 Weeks. -The patient to follow up with Dr. Saenz in the [facility]. Qualifiers: Osteomyelitis type: other acute Osteomyelitis location: foot Laterality: left Qualified Code(s): M86.172 - Other acute osteomyelitis, left ankle and foot (2) Acute kidney injury superimposed on chronic kidney disease Current Visit: Yes Status: Acute Plan: Acute on chronic kidney disease now on hemodialysis -patient started on hemodialysis here in the hospital -Appreciate Dr. Rosado's recommendations at this time -The patient is awaiting outpatient dialysis chair time. (3) History of diabetes mellitus, type II Current Visit: Yes Status: Chronic (4) Hypertension Current Visit: Yes Status: Chronic Qualifiers: Hypertension type: essential hypertension Qualified Code(s): I10 - Essential (primary) hypertension - Plan The patient is currently awaiting chair tiny for outpatient dialysis. Patient will be discharged home once dialysis was set up with IV vancomycin and oral Levaquin for total of 6 weeks along with wound care. Discharge Plan: Home Plan to discharge in: Greater than 2 days - Code Status/Comfort Care Code Status Assessed: Yes Critical Care: No
[2018-09-30] MEDS: ENOXAPARIN 30 MG/0.3 ML SQ SCH (17:07)
--- NOTE | 2018-09-30 21:49 | P.PN ---
Date of Service: 09/30/18 Vital Signs Temp Pulse Resp BP Pulse Ox 97.7 F 69 16 158/90 H 98 09/30/18 16:00 09/30/18 17:07 09/30/18 16:00 09/30/18 17:07 09/30/18 16:00 Medications Acetaminophen (Tylenol -Extra Strength) 500 mg PO Q6H PRN PRN Reason: pain/fever Stop: 10/20/18 22:28 Last Admin: 09/23/18 02:11 Dose: 500 mg Amlodipine Besylate (Norvasc) 10 mg PO DAILY CLAUDY Stop: 10/29/18 09:01 Last Admin: 09/30/18 09:35 Dose: 10 mg Atorvastatin Calcium (Lipitor) 10 mg PO DAILY CLAUDY Stop: 10/21/18 09:01 Last Admin: 09/30/18 09:35 Dose: 10 mg Calcitriol (Rocaltrol) 0.5 mcg PO DAILY CLAUDY Stop: 10/23/18 09:01 Last Admin: 09/30/18 09:00 Dose: 0.5 mcg Calcium Acetate (Phoslo) 667 mg PO TIDWM CLAUDY Stop: 10/27/18 17:01 Last Admin: 09/30/18 17:06 Dose: 667 mg Chlorhexidine Gluconate (Betasept) 1 appl TOP UD CLAUDY Stop: 10/23/18 19:01 Cholecalciferol (Vitamin D 5,000 Iu Cap) 5,000 unit PO DAILY CLAUDY Stop: 10/21/18 09:01 Last Admin: 09/30/18 09:35 Dose: 5,000 unit Collagenase (Santyl Ointment) 1 appl TOP DAILY CLAUDY Stop: 10/27/18 09:01 Last Admin: 09/30/18 09:00 Dose: 1 appl Dextrose (Dextrose 50% Syringe) 12.5 gm IV PRN PRN; Protocol PRN Reason: HYPOGLYCEMIA Stop: 10/21/18 18:32 Last Admin: 09/22/18 12:27 Dose: 12.5 gm Doxazosin Mesylate (Cardura) 2 mg PO BID CLAUDY Stop: 10/22/18 22:16 Last Admin: 09/30/18 09:34 Dose: 2 mg Enoxaparin Sodium (Lovenox 30 Mg Inj) 30 mg SQ DAILY 5 PM CLAUDY Stop: 10/22/18 17:01 Last Admin: 03/26/19 17:07 Dose: 30 mg Epoetin Delmar (Procrit) 10,000 unit IV EVERY HD CLAUDY Stop: 10/25/18 15:16 Last Admin: 09/26/18 16:15 Dose: 10,000 unit Famotidine (Pepcid) 20 mg PO DAILY CLAUDY Stop: 10/23/18 09:01 Last Admin: 09/30/18 09:34 Dose: 20 mg Furosemide (Lasix) 40 mg IV Q8HR CLAUDY Stop: 10/25/18 01:01 Last Admin: 09/30/18 17:07 Dose: 40 mg Glucagon (Glucagen) 1 mg IM 1X PRN; Protocol PRN Reason: HYPOGLYCEMIA Stop: 10/21/18 18:32 Heparin Sodium (Porcine) (Heparin 1,000 Units/Ml) 6,000 unit IV EVERY HD PRN PRN Reason: FLUSH AFTER EACH USE Stop: 10/25/18 15:15 Last Admin: 09/26/18 16:15 Dose: 6,000 unit Hydralazine HCl (Apresoline) 10 mg IV Q6HP PRN PRN Reason: Titrate to SBP (MUST DEFINE) Stop: 10/22/18 16:18 Last Admin: 09/22/18 21:38 Dose: 10 mg Levofloxacin/Dextrose (Levaquin 250mg/50 Ml Ivpb) 250 mg in 50 mls @ 50 mls/hr IV Q48H CLAUDY; Protocol Stop: 10/23/18 06:01 Last Admin: 09/29/18 06:09 Dose: 50 mls Albumin Human (Albumin 25%) 50 mls @ 100 mls/hr IV EVERY HD CLAUDY Stop: 10/25/18 16:01 Vancomycin HCl (Vancomycin 1 Gm/250 Ml Ns Ivpb) 1 gm in 250 mls @ 166.667 mls/ hr IVPB AFTER EACH DIALYSIS CLAUDY; Protocol Stop: 10/29/18 15:01 Insulin Human Regular (Novolin -R) 0 unit SQ ACHS CLAUDY; Protocol Stop: 10/21/18 21:01 Last Admin: 09/30/18 16:30 Dose: Not Given Mannitol (Mannitol 12.5 Gm/50 Ml Vial) 12.5 gm IV EVERY HD PRN PRN Reason: Titrate to SBP (MUST DEFINE) Stop: 04/20/19 15:15 Metoprolol Tartrate (Lopressor) 50 mg PO BID 6AM 6PM [facility] Stop: 10/23/18 06:01 Last Admin: 09/30/18 17:06 Dose: 50 mg Mupirocin (Bactroban 2% Ointment) 1 appl TOP BID [facility] Stop: 10/23/18 21:01 Last Admin: 09/30/18 09:00 Dose: 1 anisha Ondansetron HCl (Zofran) 4 mg IV Q8H PRN PRN Reason: NAUSEA / VOMITING Stop: 10/20/18 22:28 Sodium Chloride (Normal Saline Flush) 10 ml IV BID [facility] Stop: 10/21/18 09:01 Last Admin: 09/30/18 09:00 Dose: 10 ml Microbiology Results 09/20/18 21:02 Blood - Blood Aerobic Blood Culture - Final No growth in 5 days. 09/20/18 21:02 Blood - Blood Anaerobic Blood Culture - Final No growth in 5 days. 09/20/18 20:43 Blood - Blood Aerobic Blood Culture - Final No growth in 5 days. 09/20/18 20:43 Blood - Blood Anaerobic Blood Culture - Final No growth in 5 days. 09/20/18 20:07 Wound - Left Foot Gram Stain - Final 09/20/18 20:07 Wound - Left Foot Culture & Sensitivity - Final Morganella Morganii Assessment/ Plan: Nephrology. Doing well. Pain controlled. CPS stable without CP or SOB. +Edema No acute events overnight. Vitals, medications, blood work and imaging reviewed in the chart. NAD. NCAT. MMM. Neck supple. CTA. RRR. Soft Abd. No C/C. LE Edema 2+. Left foot ulcer. Right foot ulcer. AAO. Normal speech. EXAM DESCRIPTION: US - Renal Ultrasound-Complete - 09/21/2018 11:16 pm CLINICAL HISTORY: Acute renal insufficiency COMPARISON: None. FINDINGS: The right kidney measures 13 cm with an increased echotexture. The left kidney measures 11 cm with an increased echotexture. Hydronephrosis is not seen. The bladder is poorly evaluated as it is decompressed IMPRESSION: No significant abnormalities displayed A/ ESRD. Dialysis initiated [id number]. CKD V with proteinuria. DM II with CKD. HTN with CKD. Acidosis. Hyperkalemia. Hypocalcemia. Hypomagnesemia. Anemia in chronic illness. Iron deficiency. Left foot osteomyelitis (MRI). Right foot ulcer. P/ Continue current POC and Medications. Follow up with surgery. Wound care as ordered. Plan for senior living abx. Will be able to get abx at dialysis. Hepatitis negative. No NSAIDs. AM labs. Daily weight. Arrange placement at the [facility].
[2018-10-01] MEDS: FUROSEMIDE 40 MG/4 ML VIAL IV SCH ×2 (01:00→09:37)
[2018-10-01] MEDS: Levofloxacin 250mg IV 250 MG/50 ML BAG IV SCH (05:17)
[2018-10-01] MEDS: METOPROLOL TAR 25 MG TAB PO SCH (05:18)
[2018-10-01] MEDS: INSULIN -REGULAR HUMAN 50 UNIT/0.5 ML ML SQ SCH ×2 (07:30→11:30)
[2018-10-01] MEDS: MUPIROCIN 2% OINT 22GM TUBE TOP SCH (09:00)
[2018-10-01] MEDS: COLLAGENASE 30 GM OINTMENT TOP SCH (09:00)
[2018-10-01] MEDS: CALCITROL 0.25 MCG CAP PO SCH (09:35)
[2018-10-01] MEDS: AMLODIPINE 10 MG TAB PO SCH (09:36)
[2018-10-01] MEDS: FAMOTIDINE 20 MG TAB PO SCH (09:36)
[2018-10-01] MEDS: CA ACETATE 667 MG CAP PO SCH ×2 (09:36→12:00)
[2018-10-01] MEDS: DOXAZOSIN 2 MG TAB PO SCH (09:36)
[2018-10-01] MEDS: VITAMIN D 5,000 UNIT CAP PO SCH (09:36)
[2018-10-01] MEDS: ATORVASTATIN 10 MG TAB PO SCH (09:37)
--- NOTE | 2018-10-01 11:38 | P.DS ---
Admission Date: 09/20/18 Discharge Date: 10/01/18 Primary Care Provider: Dr. Vilchis Disposition: ROUTINE DISCHARGE Discharge Condition: GOOD Reason for Admission: ESRD Consultations: General surgery Nephrology Procedures: Incision and drainage of the left 5th toe Hemodialysis catheter right Tessio placed - Problems (1) Osteomyelitis Current Visit: Yes Status: Acute Qualifiers: Osteomyelitis type: other acute Osteomyelitis location: foot Laterality: left Qualified Code(s): M86.172 - Other acute osteomyelitis, left ankle and foot (2) Acute kidney injury superimposed on chronic kidney disease Current Visit: Yes Status: Acute (3) History of diabetes mellitus, type II Current Visit: Yes Status: Chronic (4) Hypertension Current Visit: Yes Status: Chronic Qualifiers: Hypertension type: essential hypertension Qualified Code(s): I10 - Essential (primary) hypertension Brief History of Present Illness: Patient is a 42-year-old gentleman who came to the hospital with an open wound on the left foot. There is an area below his 1st metatarsal which appears to extend through the dorsal aspect of the 1st toe along the proximal interphalangeal joint. Patient also has significant lower extremity edema bilaterally. He says this is been going on and worsening which his physician felt like it was related to his amlodipine. He has been feeling weak and short of breath at work. He came into the ER for further evaluation. On assessment of his foot decision was made to admit him and to work him up for possible osteomyelitis. Will get general surgery consultation as well. Patient normally sees Dr. 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 Will consult General Surgeon Dr. Self for further evaluation. Incidentally, I was notified that the patient's creatinine came back in the Emergency Room highly elevated. There is a significant change from his prior renal function. Ago had history chronic kidney failure as well. Nephrology consultation as well as renal ultrasound and urine studies. Hospital Course: Overall during the hospital stay patient remained stable Patient initially was admitted to the hospital for osteomyelitis of his left 5th toe. Patient on presentation had a cellulitis of the left 5th toe. MRI confirmed the diagnosis of osteomyelitis. General surgery was consulted. General surgery performed incision and drainage x2 while here in the hospital with subsequent wound VAC placement after. Patient and was placed on IV antibiotics for wound cultures were collected. Wound culture was positive for enterococcus, MRSA and strep Group B. the patient this is started on IV vancomycin during dialysis and IV Levaquin. Patient was to continue his for total of 6 weeks. Infectious disease was consulted who agreed with the plan as well. Patient's mood did improve while here in the hospital after incision and drainage and wound VAC was placed. Wound VAC was changed every 48 hr while here in the hospital. Patient then was prepared for discharge and wound VAC was delivered to the hospital and applied patient's leg. General surgery recommended that patient cannot be discharged home safely and continue taking the antibiotics for a total of 6 weeks. Patient will be continued on IV vancomycin during dialysis and oral Levaquin. While here in the hospital patient also had acute on chronic kidney disease. Patient's creatinine did not improve while here in the hospital and patient was started on dialysis. General surgery placed hemodialysis catheter and patient was started on dialysis and did well overall. Chair time was set up and patient was thus discharged home under stable condition with Saturday dialysis. Patient was also asked to follow up with Nephrology on discharge. Patient's blood pressure medications were changed due to recent changes in dialysis. Patient was started on Cardura and Lasix and was asked to discontinue taking his home hydrochlorothiazide along with Arb. Patient demonstrated understanding Patient was asked to follow up with primary care provider and General Surgery. Patient's wound care will be done at the wound Care Clinic at home health was provided as well. Vital Signs/Physical Exam: Temp Pulse Resp BP Pulse Ox 98 F 70 18 140/64 97 10/01/18 08:00 10/01/18 09:37 10/01/18 08:00 10/01/18 09:37 10/01/18 08:00 General: Alert, In no apparent distress HEENT: Atraumatic, PERRLA, EOMI Neck: Supple, JVD not distended Respiratory: Clear to auscultation bilaterally, Normal air movement Cardiovascular: Regular rate/rhythm, Normal S1 S2 Gastrointestinal: Normal bowel sounds, No tenderness Musculoskeletal: Other (Wound VAC in place on the left foot. Incision is clean dry and intact. Minimal drainage noted and the wound VAC as well.) Integumentary: No rashes Neurological: Normal speech, Normal tone, Normal affect Lymphatics: No axilla or inguinal lymphadenopathy Laboratory Data at Discharge: WBC 10.2 K/uL (4.3-10.9) 09/30/18 06:17 Hgb 9.1 g/dL (13.6-17.9) L 09/30/18 06:17 Hct 28.1 % (39.6-49.0) L 09/30/18 06:17 Plt Count 327 K/uL (152-406) 09/30/18 06:17 PT 14.4 SECONDS (9.5-12.5) H 09/20/18 20:43 INR 1.23 09/20/18 20:43 APTT 37.5 SECONDS (24.3-36.9) H 09/20/18 20:43 Sodium 140 mmol/L (136-145) 09/30/18 06:17 Potassium 4.2 mmol/L (3.5-5.1) 09/30/18 06:17 BUN 32 mg/dL (7-18) H 09/30/18 06:17 Creatinine 6.64 mg/dL (0.55-1.3) H* D 09/30/18 06:17 Glucose 128 mg/dL (74-106) H 09/30/18 06:17 Uric Acid 6.9 mg/dL (3.5-7.2) 09/25/18 05:51 Phosphorus 8.9 mg/dL (2.5-4.9) H* 09/25/18 05:51 Magnesium 1.8 mg/dL (1.8-2.4) 09/27/18 05:47 Total Bilirubin 0.3 mg/dL (0.2-1.0) 09/25/18 05:51 AST 20 U/L (15-37) 09/25/18 05:51 ALT 23 U/L (12-78) 09/25/18 05:51 Alkaline Phosphatase 309 U/L (45-117) H 09/25/18 05:51 Lipase 179 U/L (73-393) 09/20/18 20:43 Home Medications: Amlodipine [Norvasc*] 10 mg PO DAILY 09/21/18 Aspirin [Aspir-Low] 81 mg PO DAILY 09/21/18 Atorvastatin Calcium [Lipitor*] 10 mg PO DAILY 09/21/18 Cholecalciferol (Vitamin D3) [Vitamin D3] 5,000 unit PO DAILY 09/21/18 Glimepiride [Amaryl*] 2 mg PO DAILY 09/21/18 Linagliptin [Tradjenta] 5 mg PO DAILY 09/21/18 Loratadine [Claritin*] 10 mg PO DAILY PRN 09/21/18 Calcitrol [Rocaltrol*] 0.5 mcg PO DAILY #30 cap 10/01/18 Calcium Acetate [Phoslo*] 667 mg PO TIDWM #30 cap 10/01/18 Doxazosin [Cardura*] 2 mg PO BID #60 tab 10/01/18 Furosemide [Lasix] 40 mg PO BID #60 tablet 10/01/18 Levofloxacin [Levaquin] 500 mg PO DAILY #45 tablet 10/01/18 Metoprolol Tartrate [Lopressor*] 50 mg PO BID 6AM 6PM #120 tab 10/01/18 New Medications: Calcitrol [Rocaltrol*] 0.5 mcg PO DAILY #30 cap Calcium Acetate [Phoslo*] 667 mg PO TIDWM #30 cap Doxazosin [Cardura*] 2 mg PO BID #60 tab Furosemide [Lasix] 40 mg PO BID #60 tablet Levofloxacin [Levaquin] 500 mg PO DAILY #45 tablet Metoprolol Tartrate [Lopressor*] 50 mg PO BID 6AM 6PM #120 tab Diet: Regular Activity: Ad milton Followup: Alex Garibay DO [ACTIVE - CAN ADMIT] - 1 Week
--- NOTE | 2018-10-01 19:06 | PN ---
Date of Progress Note: 10/01/2018 Subjective: Patient is seen and examined. Denies any complaints. Physical Examination: Vital Signs: Have been reviewed and are stable. General: He appears in no acute distress. Lungs: Clear to auscultation. Abdomen: Soft and nontender. Extremities: With right lower foot in dressing was noted. Labs: From yesterday have been reviewed in detail. Current Medications: Have been reviewed as well. Impression: 1.New onset end-stage renal disease secondary to underlying type 2 diabetes with diabetic nephropath y. The patient has been initiated on dialysis and has been doing okay. The patient has been set up for outpatient dialysis at [facility] and has a chair time tomorrow. 2.Osteomyelitis of his right foot. The patient underwent incision and drainage x2 and subsequent pl acement of wound VAC. The patient remains on IV antibiotics. Wound culture was positive for enteroc occus and Methicillin-resistant Staphylococcus aureus and Staphylococcus, has been started on antibio tics. Infectious Disease has been consulted on the patient and we will continue vancomycin with dial ysis. 3.Chronic anemia, stable. 4.Type 2 diabetes. 5.Hypertension, stable. Plan: Patient is overall doing okay at this time. He is okay to be discharged from Nephrology stand point with plan for dialysis followup tomorrow. He will be discharged on p.o. Levaquin and IV vancom ycin to be given with dialysis. Blood pressure medications have been adjusted and he has been started on PhosLo for hyperphosphatemia. We will continue to follow up as outpatient for dialysis needs. VV/MODL Voice ID: [id number] Report ID: [id number]
== END 2018-10-01 16:31 | disposition home health service (06) | DRG 463 ==
LOC: ER 18:08 → ERHOLD 23:04 → 2ND 23:18
PROVIDERS: ADMIT Hospitalist; ATTEND Family Medicine
PROC: 0JBR0ZZ Excision of Left Foot Subcutaneous Tissue and Fascia, Open Approach (ICD-10-PCS; principal; 2018-09-23 13:15)
PROC: 0JH63XZ Insertion of Tunneled Vascular Access Device into Chest Subcutaneous Tissue and Fascia, Percutaneous Approach (ICD-10-PCS; 2018-09-25)
PROC: 02HV33Z Insertion of Infusion Device into Superior Vena Cava, Percutaneous Approach (ICD-10-PCS; 2018-09-25)
PROC: B518YZA Fluoroscopy of Superior Vena Cava using Other Contrast, Guidance (ICD-10-PCS; 2018-09-25)
PROC: 5A1D70Z Performance of Urinary Filtration, Intermittent, Less than 6 Hours Per Day (ICD-10-PCS; 2018-09-25)
PROC: 5A1D70Z Performance of Urinary Filtration, Intermittent, Less than 6 Hours Per Day (ICD-10-PCS; 2018-09-26)
PROC: 5A1D70Z Performance of Urinary Filtration, Intermittent, Less than 6 Hours Per Day (ICD-10-PCS; 2018-09-28)
PROC: 5A1D70Z Performance of Urinary Filtration, Intermittent, Less than 6 Hours Per Day (ICD-10-PCS; 2018-09-30)
DX: M86.172 Other acute osteomyelitis, left ankle and foot (principal); N17.0 Acute kidney failure with tubular necrosis; N18.6 End stage renal disease; N17.9 Acute kidney failure, unspecified; I12.0 Hypertensive chronic kidney disease with stage 5 chronic kidney disease or end stage renal disease; N18.5 Chronic kidney disease, stage 5; E87.2 Acidosis; L03.032 Cellulitis of left toe; F17.210 Nicotine dependence, cigarettes, uncomplicated; E11.621 Type 2 diabetes mellitus with foot ulcer; L97.529 Non-pressure chronic ulcer of other part of left foot with unspecified severity; E11.51 Type 2 diabetes mellitus with diabetic peripheral angiopathy without gangrene; I25.5 Ischemic cardiomyopathy; I10 Essential (primary) hypertension; E66.01 Morbid (severe) obesity due to excess calories; Z68.34 Body mass index [BMI] 34.0-34.9, adult; D63.8 Anemia in other chronic diseases classified elsewhere; E11.22 Type 2 diabetes mellitus with diabetic chronic kidney disease; Z79.84 Long term (current) use of oral hypoglycemic drugs; D50.9 Iron deficiency anemia, unspecified; R80.9 Proteinuria, unspecified; E87.5 Hyperkalemia; E83.51 Hypocalcemia; E83.42 Hypomagnesemia; B96.4 Proteus (mirabilis) (morganii) as the cause of diseases classified elsewhere; E78.2 Mixed hyperlipidemia; B95.2 Enterococcus as the cause of diseases classified elsewhere; B95.1 Streptococcus, group B, as the cause of diseases classified elsewhere; Z99.2 Dependence on renal dialysis; B95.62 Methicillin resistant Staphylococcus aureus infection as the cause of diseases classified elsewhere; N25.0 Renal osteodystrophy; E83.39 Other disorders of phosphorus metabolism
CPT/HCPCS: 36415; 71045; 76000; 76770; 80048; 80053; 80076; 80202; 81001; 81003; 81015; 82043; 82550; 82553; 82570; 82607; 82728; 82962; 83036; 83540; 83605; 83690; 83735; 83880; 84100; 84132; 84145; 84300; 84466; 84550; 85025; 85610; 85652; 85730; 86021; 86038; 86160; 86317; 86335; 86704; 86803; 87040; 87070; 87075; 87077; 87086; 87088; 87176; 87186; 87205; 87340; 88304; 90935; 93306; 93925; 96365; 96366; 99285; C1752; J0360; J0690; J0885; J1170; J1644; J1650; J1940; J2150; J2250; J2405; J2543; J2704; J2916; J3010; J3370; J3475; J3590; J7030; P9047; Q4081

== ENCOUNTER 2019-08-11 22:19 | Emergency (ER) | payer BC ==
[~2019-08-11 22:19] MED LIST: LORazepam 2 MG/ML VIAL ONE; NA CHLORIDE 0.9% 0 ML ONE
--- OUTSIDE RECORDS SUMMARY | 2019-08-11 22:21 | XMS REPORT ---
:1975 Author Organization [facility] Address [address] [place] [address] Dr. Bhat [address] [place] [id number] Care Team Providers Name Role Phone Unavailable Unavailable Unavailable Problems This patient has no known problems. Allergies, Adverse Reactions, Alerts This patient has no known allergies or adverse reactions. Medications This patient has no known medications.
--- OUTSIDE RECORDS SUMMARY | 2019-08-11 22:24 | XMS REPORT ---
:1975 Author Organization [employer] Care Team Providers Name Role Phone Todd Davis Provider Role Unavailable Allergies No Known Allergies Problems Problem Type Condition Code Onset Dates Condition Status Problem End stage renal disease N18.6 Active Problem LVH (left ventricular hypertrophy) I51.7 Active Problem Mixed hyperlipidemia E78.2 Active Problem Vitamin D deficiency E55.9 Active Problem Type 2 diabetes mellitus with E11.22 Active diabetic chronic kidney disease Problem Kidney disease N28.9 Active Problem Morbid (severe) obesity due to E66.01 Active excess calories Problem Body mass index (BMI) of 36.0-36.9 Z68.36 Active in adult Problem Essential (primary) hypertension I10 Active Problem Dependence on renal dialysis Z99.2 Active Problem Seasonal allergies J30.2 Active Problem Type 2 diabetes mellitus without E11.9 Active complication, without long-term current use of insulin Problem HTN, goal below 130/80 I10 Active Medications Medication Code Code Instructions Start End Status Dosage System Date Date Pen [place] [facility] [id number] 31G X 5 MM Apr 08, Active 1 pen 3" subcutaneously 2019 needle once daily with Victoza Results No Known Results Summary Purpose [employer] Submission
--- OUTSIDE RECORDS SUMMARY | 2019-08-11 22:24 | XMS REPORT ---
:1975 Author Organization eClinicalWorks Care Team Providers Name Role Phone Todd Davis Provider Role Unavailable Allergies No Known Allergies Problems Problem Type Condition Code Onset Dates Condition Status Problem Seasonal allergies J30.2 Active Problem Dependence on renal dialysis Z99.2 Active Problem Vitamin D deficiency E55.9 Active Problem Anemia of chronic disease D63.8 Active Problem Essential (primary) hypertension I10 Active Problem Abnormal gait R26.9 Active Problem Type 2 diabetes mellitus without E11.9 Active complication, without long-term current use of insulin Problem HTN, goal below 130/80 I10 Active Problem Morbid (severe) obesity due to E66.01 Active excess calories Problem Body mass index (BMI) of 36.0-36.9 Z68.36 Active in adult Assessment Essential (primary) hypertension I10 Active Problem Kidney disease N28.9 Active Problem End stage renal disease N18.6 Active Problem Mixed hyperlipidemia E78.2 Active Problem Type 2 diabetes mellitus with E11.22 Active diabetic chronic kidney disease Problem LVH (left ventricular hypertrophy) I51.7 Active Medications No Known Medications Results No Known Results Summary Purpose eClinicalWorks Submission
--- OUTSIDE RECORDS SUMMARY | 2019-08-11 22:24 | XMS REPORT ---
[...] HTN, goal below 130/80 I10 Active Medications No Known Medications Results No Known Results Summary Purpose eClinicalCinchcast Submission
--- OUTSIDE RECORDS SUMMARY | 2019-08-11 22:24 | XMS REPORT ---
:1975 Author Organization eClinicalWorks Care Team Providers Name Role Phone Todd Davis Provider Role Unavailable Allergies No Known Allergies Problems Problem Type Condition Code Onset Dates Condition Status Problem End stage renal disease N18.6 Active Problem LVH (left ventricular hypertrophy) I51.7 Active Problem Mixed hyperlipidemia E78.2 Active Problem Morbid (severe) obesity due to E66.01 Active excess calories Problem Body mass index (BMI) of 36.0-36.9 Z68.36 Active in adult Problem Essential (primary) hypertension I10 Active Problem Dependence on renal dialysis Z99.2 Active Problem Seasonal allergies J30.2 Active Problem Type 2 diabetes mellitus without E11.9 Active complication, without long-term current use of insulin Problem HTN, goal below 130/80 I10 Active Problem Vitamin D deficiency E55.9 Active Assessment Mixed hyperlipidemia E78.2 Active Problem Type 2 diabetes mellitus with E11.22 Active diabetic chronic kidney disease Assessment Type 2 diabetes mellitus with E11.22 Active diabetic chronic kidney disease Problem Kidney disease N28.9 Active Medications No Known Medications Results No Known Results Summary Purpose eClinicalWorks Submission
--- OUTSIDE RECORDS SUMMARY | 2019-08-11 22:24 | XMS REPORT ---
:1975 Author Organization eClinicalWorks Care Team Providers Name Role Phone Todd Davis Provider Role Unavailable Allergies, Adverse Reactions, Alerts Substance Reaction Event Type N.K.D.A. Info Not Available Non Drug Allergy Problems Problem Type Condition Code Onset Dates Condition Status Assessment Weakness of both lower extremities R29.898 Active Assessment Abnormal gait R26.9 Active Assessment Anemia of chronic disease D63.8 Active Assessment Body mass index (BMI) of 36.0-36.9 Z68.36 Active in adult Problem Mixed hyperlipidemia E78.2 Active Assessment Morbid (severe) obesity due to E66.01 Active excess calories Problem LVH (left ventricular hypertrophy) I51.7 Active Assessment LVH (left ventricular hypertrophy) I51.7 Active Problem Seasonal allergies J30.2 Active Problem Dependence on renal dialysis Z99.2 Active Problem Vitamin D deficiency E55.9 Active Problem Anemia of chronic disease D63.8 Active Problem Essential (primary) hypertension I10 Active Assessment HTN, goal below 130/80 I10 Active Assessment Seasonal allergies J30.2 Active Problem Abnormal gait R26.9 Active Assessment Vitamin D deficiency E55.9 Active Problem Type 2 diabetes mellitus without E11.9 Active complication, without long-term current use of insulin Problem HTN, goal below 130/80 I10 Active Problem Morbid (severe) obesity due to E66.01 Active excess calories Problem Body mass index (BMI) of 36.0-36.9 Z68.36 Active in adult Assessment End stage renal disease N18.6 Active Assessment Type 2 diabetes mellitus with E11.22 Active diabetic chronic kidney disease Assessment Mixed hyperlipidemia E78.2 Active Assessment Dependence on renal dialysis Z99.2 Active Problem Kidney disease N28.9 Active Problem End stage renal disease N18.6 Active Problem Type 2 diabetes mellitus with E11.22 Active diabetic chronic kidney disease Medications Medication Code Code Instructions Start End Status Dosage System Date Date Atorvastatin [facility] 39059592912 10 MG Orally Once Active take 1 Calcium a day tablet by mouth every day Furosemide ND 00628534409 40 MG Oral Twice Active take 1 a day tablet by mouth twice a day Tradjenta [facility] 74494612605 5 MG Oral Once a Active take 1 day tablet by mouth every day Victoza [facility] 27948091734 18 MG/3ML Active INJECT 0.6 Subcutaneous MG/DAY X 1 WEEK THEN 1.2 MG/DAY. MAX 1.8 MG/DAY ONCE A DAY SUBCUTANEO US. Pen [place] [facility] [id number] 31G X 5 MM Oct , Active 1 pen 09/20" subcutaneously 2019 needle once daily with Victoza Metoprolol [facility] 34437958817 50 MG Oral Twice Active take 1 Tartrate a day tablet by mouth twice a day Vitamin D-[address] [facility] 81367402902 5000 UNIT Orally Active as directed Doxazosin [facility] 12809750213 2 MG Oral BID Active take 1 Mesylate tablet by mouth twice a day Amlodipine [facility] 22196280265 10 MG Orally Once Active take 1 Besylate a day tablet by mouth every day Glimepiride [facility] 21652146793 4 MG Orally Once Active take 1 a day tablet by mouth every day Calcium Acetate [facility] 94160908049 667 MG Oral Active TAKE BY (Phos Binder) MOUTH 1 CAPSULE 3 TIMES A DAY WITH FOOD AND 1 CAPSUE 2 TIMES WITH SNACKS Claritin [facility] 93515782496 10 MG Orally Once Active 1 tablet a day Results No Known Results Summary Purpose eClinicalWorks Submission
--- NOTE | 2019-08-11 23:54 | EDPHYS ---
Physician Documentation [facility] Name: Nikita Bartlett Age: 43 yrs Sex: Male : 1975 Arrival Date: 08/11/2019 Time: 22:22 Bed 13 Private MD: [place] Physician Kareem Mccann HPI: 08/11 22:50 This 43 yrs old Male presents to ER via Ambulatory with complaints of Knee kb Injury. 22:50 The patient presents with pain, swelling, tenderness. The complaints affect the right kb knee. Context: The problem was sustained at home, resulted from the patient falling, while walking, the patient can partially bear weight, the patient is able to ambulate. Onset: The symptoms/episode began/occurred this morning. Modifying factors: The symptoms are alleviated by nothing. the symptoms are aggravated by weight bearing. Associated signs and symptoms: Pertinent positives: swelling. Treatment prior to arrival includes: no previous treatment. Severity of symptoms: At their worst the symptoms were moderate, in the emergency department the symptoms are unchanged. The patient has not experienced similar symptoms in the past. The patient has not recently seen a physician. Pt reports pain to right knee after falling onto it this morning. . Historical: - Allergies: 22:41 No Known Allergies; ch - Home Meds: 22:41 amlodipine oral [Active]; Aspirin Oral [Active]; erythropoeten [Active]; doxyzosen ch [Active]; Victoza 2-Mg subcutaneous subcutaneous [Active]; Tradjenta 5 mg Oral tab [Active]; Metoprolol Tartrate Oral [Active]; vitamins [Active]; - PMHx: 22:41 "Leaking heart valve"; Diabetes - NIDDM; Enlarged Heart; Hypertension; Dialysis; ch Anemia; osteomyolitis; - PSHx: 22:41 hemocath dialysis inserted and removed; peritoneal dialysis cath; L foot; I and D, ch multiple; - Immunization history:: Adult Immunizations up to date, Flu vaccine is up to date. - Coronavirus screen:: The patient has NOT traveled to [place], [place], or [place] in the past 14 days. The patient has NOT had contact with known/suspected case of Coronavirus?. - Social history:: Smoking status: Patient/guardian denies using tobacco, the patient reports quitting approximately 1 years ago. - Ebola Screening: : Patient negative for fever greater than or equal to 101.5 degrees Fahrenheit, and additional compatible Ebola Virus Disease symptoms Patient denies exposure to infectious person Patient denies travel to an Ebola-affected area in the 21 days before illness onset No symptoms or risks identified at this time. ROS: 22:48 Constitutional: Negative for fever, chills, and weight loss, Neck: Negative for injury, kb pain, and swelling, Cardiovascular: Negative for chest pain, palpitations, and edema, Respiratory: Negative for shortness of breath, cough, wheezing, and pleuritic chest pain, Abdomen/GI: Negative for abdominal pain, nausea, vomiting, diarrhea, and constipation, Skin: Negative for injury, rash, and discoloration, Neuro: Negative for headache, weakness, numbness, tingling, and seizure. 22:48 MS/extremity: Positive for pain, swelling, tenderness, of the right knee. Exam: 22:48 Constitutional: This is a well developed, well nourished patient who is awake, alert, kb and in no acute distress. Head/Face: Normocephalic, atraumatic. Neck: Trachea midline, no thyromegaly or masses palpated, and no cervical lymphadenopathy. Supple, full range of motion without nuchal rigidity, or vertebral point tenderness. No Meningismus. Chest/axilla: Normal chest wall appearance and motion. Nontender with no deformity. No lesions are appreciated. Cardiovascular: Regular rate and rhythm with a normal S1 and S2. No gallops, murmurs, or rubs. Normal PMI, no JVD. No pulse deficits. Respiratory: Lungs have equal breath sounds bilaterally, clear to auscultation and percussion. No rales, rhonchi or wheezes noted. No increased work of breathing, no retractions or nasal flaring. Abdomen/GI: Soft, non-tender, with normal bowel sounds. No distension or tympany. No guarding or rebound. No evidence of tenderness throughout. Skin: Warm, dry with normal turgor. Normal color with no rashes, no lesions, and no evidence of cellulitis. Neuro: Awake and alert, GCS 15, oriented to person, place, time, and situation. Cranial nerves II-XII grossly intact. Motor strength 5/5 in all extremities. Sensory grossly intact. Cerebellar exam normal. Normal gait. 22:48 Musculoskeletal/extremity: Extremities: grossly normal except: noted in the right knee: pain, swelling, tenderness, ROM: intact in all extremities, Circulation is intact in all extremities. Sensation intact. Weight bearing: able to fully bear weight. Vital Signs: 22:43 BP 122 / 65; Pulse 82; Resp 16; Pulse Ox 100% on R/A; vc 22:59 Temp 98.4; ls4 23:30 BP 153 / 88; Pulse 85; Pulse Ox 98% on R/A; vc 08/12 00:00 BP 153 / 87; Pulse 87; Pulse Ox 98% on R/A; vc MDM: 08/11 22:34 Patient medically screened. kb 22:48 Data reviewed: vital signs, nurses notes. Data interpreted: Pulse oximetry: on room air kb is 100 %. Interpretation: normal. Counseling: I had a detailed discussion with the patient and/or guardian regarding: the historical points, exam findings, and any diagnostic results supporting the discharge/admit diagnosis, radiology results, the need for outpatient follow up, a family practitioner, to return to the emergency department if symptoms worsen or persist or if there are any questions or concerns that arise at home. 08/11 22:35 Order name: Knee Right 3 View XRAY kb 08/11 23:54 Order name: Knee Immobilizer; Complete Time: 00:17 kb 08/11 23:54 Order name: Crutches; Complete Time: 00:17 kb Administered Medications: 08/12 00:12 Drug: traMADol 50 mg Route: PO; ls4 Disposition: 07:31 Co-signature as Attending Physician, Kareem Mccann MD I agree with the assessment and nishant plan of care. Disposition: 08/11/19 23:53 Discharged to Home. Impression: Pain in right knee. - Condition is Stable. - Discharge Instructions: Knee Pain, [id number]. - Prescriptions for Tramadol 50 mg Oral Tablet - take 1 tablet by ORAL route every 8 hours as needed; 12 tablet. - Medication Reconciliation Form, Thank You Letter, Antibiotic Education, Prescription Opioid Use form. - Follow up: Emergency Department; When: As needed; Reason: Worsening of condition. Follow up: Private Physician; When: 2 - 3 days; Reason: Recheck today's complaints, Continuance of care, Re-evaluation by your physician. Signatures: Dispatcher [employer] Celeste Cervantes, DRILL RIG OPERATOR HELPER-C DRILL RIG OPERATOR HELPER-Ckb Ghada Scott, RN RN Kareem Holliday MD MD cha Stewart, Lisa, RN RN ls4 Corrections: (The following items were deleted from the chart) 00:43 08/11 23:53 08/11/2019 23:53 Discharged to Home. Impression: Pain in right knee. ls4 Condition is Stable. Discharge Instructions: Knee Pain, [id number]. Prescriptions for Tramadol 50 mg Oral Tablet - take 1 tablet by ORAL route every 8 hours as needed; 12 tablet. and Forms are Medication Reconciliation Form, Thank You Letter, Antibiotic Education, Prescription Opioid Use. Follow up: Emergency Department; When: As needed; Reason: Worsening of condition. Follow up: Private Physician; When: 2 - 3 days; Reason: Recheck today's complaints, Continuance of care, Re-evaluation by your physician. kb
--- NOTE | 2019-08-11 23:54 | ER ---
Nurse's Notes [facility] Name: Nikita Bartlett Age: 43 yrs Sex: Male : 1975 Arrival Date: 08/11/2019 Time: 22:22 Bed 13 Private MD: Diagnosis: Pain in right knee Presentation: 08/11 22:35 Presenting complaint: Patient states: pain to R knee after fall this morning. ch Transition of care: patient was not received from another setting of care. Onset of symptoms was August 11, 2019 at 08:00. Risk Assessment: Do you want to hurt yourself or someone else? Patient reports no desire to harm self or others. Initial Sepsis Screen: Does the patient meet any 2 criteria? No. Patient's initial sepsis screen is negative. Does the patient have a suspected source of infection? No. Patient's initial sepsis screen is negative. Care prior to arrival: None. 22:35 Method Of Arrival: Ambulatory 22:35 Acuity: OCTAVIO 4 ch Triage Assessment: 22:41 General: Appears in no apparent distress. comfortable, Behavior is calm, cooperative, ch appropriate for age. Injury Description: fall, pian to R knee. Historical: - Allergies: 22:41 No Known Allergies; ch - Home Meds: 22:41 amlodipine oral [Active]; Aspirin Oral [Active]; erythropoeten [Active]; doxyzosen ch [Active]; Victoza 2-Mg subcutaneous subcutaneous [Active]; Tradjenta 5 mg Oral tab [Active]; Metoprolol Tartrate Oral [Active]; vitamins [Active]; - PMHx: 22:41 "Leaking heart valve"; Diabetes - NIDDM; Enlarged Heart; Hypertension; Dialysis; ch Anemia; osteomyolitis; - PSHx: 22:41 hemocath dialysis inserted and removed; peritoneal dialysis cath; L foot; I and D, ch multiple; - Immunization history:: Adult Immunizations up to date, Flu vaccine is up to date. - Coronavirus screen:: The patient has NOT traveled to [place], [place], or [place] in the past 14 days. The patient has NOT had contact with known/suspected case of Coronavirus?. - Social history:: Smoking status: Patient/guardian denies using tobacco, the patient reports quitting approximately 1 years ago. - Ebola Screening: : Patient negative for fever greater than or equal to 101.5 degrees Fahrenheit, and additional compatible Ebola Virus Disease symptoms Patient denies exposure to infectious person Patient denies travel to an Ebola-affected area in the 21 days before illness onset No symptoms or risks identified at this time. Screenin:34 Abuse screen: Denies threats or abuse. Denies injuries from another. Nutritional ls4 screening: No deficits noted. Tuberculosis screening: No symptoms or risk factors identified. Fall Risk None identified. Assessment: 22:36 General: Appears uncomfortable, Behavior is calm, cooperative. Musculoskeletal: ls4 Circulation, motion, and sensation intact. Capillary refill < 3 seconds, Range of motion: intact in all extremities, Reports pain in right knee since this morning . Pain is 9 out of 10 on a pain scale. 23:00 General: Appears in no apparent distress. uncomfortable, Behavior is calm, cooperative, vc agitated. Pain: Complains of pain in right knee. Neuro: Level of Consciousness is awake, alert, obeys commands, Oriented to person, place, time. Cardiovascular: Capillary refill < 3 seconds Patient's skin is warm and dry. Respiratory: Respiratory effort is even, unlabored. GI: No signs and/or symptoms were reported involving the gastrointestinal system. : No signs and/or symptoms were reported regarding the genitourinary system. EENT: No deficits noted. Derm: No deficits noted. 08/12 00:00 Reassessment: Patient and/or family updated on plan of care and expected duration. Pain vc level reassessed. Patient is alert, oriented x 3, equal unlabored respirations, skin warm/dry/pink. Patient states feeling better. Patient states symptoms have improved. Vital Signs: 08/11 22:43 BP 122 / 65; Pulse 82; Resp 16; Pulse Ox 100% on R/A; vc 22:59 Temp 98.4; ls4 23:30 BP 153 / 88; Pulse 85; Pulse Ox 98% on R/A; vc 08/12 00:00 BP 153 / 87; Pulse 87; Pulse Ox 98% on R/A; vc ED Course: 08/11 22:22 Patient arrived in ED. jg7 22:28 Alison Elder, EMILIE is Primary Nurse. ls4 22:31 Cel[facility]la [facility]C [facility] kb 22:31 Kareem Mccann MD is Attending Physician. kb 22:34 Patient has correct armband on for positive identification. Bed in low position. Call ls4 light in reach. Side rails up X 1. Warm blanket given. 22:34 No provider procedures requiring assistance completed. ls4 22:35 Triage completed. 22:41 Patient placed in an exam room, on a stretcher. 08/12 00:17 Knee Right 3 View XRAY Sent. ls4 00:40 Patient did not have IV access during this emergency room visit. vc Administered Medications: 00:12 Drug: traMADol 50 mg Route: PO; ls4 Outcome: 08/11 23:53 Discharge ordered by . kb 08/12 00:40 Discharged to home with crutches, with significant other. vc Condition: good Discharge instructions given to patient, significant other, Instructed on discharge instructions, follow up and referral plans. crutch walking, Demonstrated understanding of instructions, follow-up care, medications, crutch walking, Prescriptions given X 1. 00:43 Patient left the ED. ls4 Signatures: Celeste Varela, REGISTERED CLIENT ASSOCIATE-C PATTIE-Ghada Graves, RN RN Alison Elder, EMILIE RN ls4 Carole Remy jg7 Gabrielle Mak RN RN vc Corrections: (The following items were deleted from the chart) 01:15 General: Appears in no apparent distress. uncomfortable, Behavior is calm, vc cooperative, agitated, vc 01:15 Pain: Complains of pain in right knee vc vc 01:15 Neuro: Level of Consciousness is awake, alert, obeys commands, Oriented to vc person, place, time, vc 01:15 Cardiovascular: Capillary refill < 3 seconds Patient's skin is warm and dry. vc vc 01:15 Respiratory: Respiratory effort is even, unlabored, vc vc 01:15 GI: No signs and/or symptoms were reported involving the gastrointestinal system. vc vc 01:15 : No signs and/or symptoms were reported regarding the genitourinary system. vc vc 01:15 EENT: No deficits noted. vc vc 01:15 Derm: No deficits noted. vc vc
[2019-08-12] MEDS ORDERED: TRAMADOL HCL 50 MG TAB ONE (00:11)
--- NOTE | 2019-08-12 08:20 | RAD REPORT ---
EXAM DESCRIPTION: RAD - Knee Right 3 View - 08/11/2019 10:53 pm CLINICAL HISTORY: Right knee pain status post injury FINDINGS: No fracture or dislocation is seen. Soft tissue swelling is present. Small joint effusion suspected If patient continues to have symptoms to suggest an occult fracture, ligamentous or meniscal injury M RI would be recommended
[2019-08-12 09:18] VITALS: BP 122/65; O2SAT 100
[2019-08-12 09:19] VITALS: TEMP 98.4
== END 2019-08-12 00:43 | disposition home or self-care (01) ==
LOC: ER 22:19
DX: M25.561 Pain in right knee (principal); W19.XXXA Unspecified fall, initial encounter; Y93.9 Activity, unspecified; Y92.9 Unspecified place or not applicable; E11.8 Type 2 diabetes mellitus with unspecified complications; I10 Essential (primary) hypertension; Z99.2 Dependence on renal dialysis
CPT/HCPCS: 99284; J7030

== ENCOUNTER 2019-11-24 00:36 | Inpatient (IN) | payer BC ==
--- OUTSIDE RECORDS SUMMARY | 2019-11-24 00:39 | XMS REPORT ---
:1975 Author Organization [facility] t Address [address] [place] [address] Care Team Providers Name Role Phone Neil GOSS Attending Clinician Emmy Galvez Attending Clinician Doctor Unassigned, Name Attending Clinician Unavailable Neil GOSS Admitting Clinician Problems Condition Condition Condition Status Onset Resolution Last Treating Co mments Source Name Details Category Date Date Treatment Clinician Date End stage End stage Problem Active [facility] renal renal [facility] - disease disease [facility] Outpati ent Clinics LVH (left LVH (left Problem Active [facility] ventricula ventricula Mariza kes - r r Memoria hypertroph hypertroph l y) y) Outpati ent Clinics Mixed Mixed Problem Active [facility] hyperlipid hyperlipid Mariza kes - emia emia Memoria l Outpat[facility] ent Clinics Morbid Morbid Problem Active [facility] (severe) (severe) Lukes - obesity obesity Memoria due to due to l excess excess Outpati calories calories ent Clinics Vitamin D Vitamin D Problem Active [facility] deficiency deficiency Mariza kes - Memoria l Outpati ent Clinics Body mass Body mass Problem Active [facility] index index [facility] - (BMI) of (BMI) of Memori a 36.0-36.9 36.0-36.9 l in adult in adult Outpat i ent Clinics Essential Essential Problem Active [facility] (primary) (primary) Luke s - hypertensi hypertensi Me moria on on l Outpati ent Clinics Dependence Dependence Problem Active [facility] on renal on renal [facility]ukes - dialysis dialysis Memori a l Outpati ent Clinics Seasonal Seasonal Problem Active [facility] allergies allergies Luke s - Memoria l [facility] ent Clinics Type 2 Type [address] [facility] diabetes diabetes [facility] - mellitus mellitus Memori a without without l complicati complicati Ou tpati on, on, ent without without Clinics long-term long-term current current use of use of insulin insulin Type 2 Type [address] [facility] diabetes diabetes Lukes - mellitus mellitus Memori a with with l diabetic diabetic Outpat i chronic chronic ent kidney kidney Clinics disease disease Kidney Kidney Problem Active [facility] Abnormal Abnormal Problem [facility] Anemia of Anemia of Problem Active [facility] chronic chronic [facility] - disease disease [facility] Primary Primary Diagnosis Active [facility] osteoarthr osteoarthr [facility] - itis of itis of [facility] right knee right knee [facility] ent [facility] Pain, Pain, Diagnosis Active [facility] joint, joint, kes - knee, knee, Memoria right right l [facility] ent [facility] Right knee Right knee Diagnosis Active [facility] sprain sprain kes - [facility] ent [facility] Allergies, Adverse Reactions, Alerts This patient has no known allergies or adverse reactions. Medications Ordered Filled Start Stop Current Ordering Indication Dosage Frequency Signature Comments Components Source Medication Medication Date Date Medication? Clinician (SIG) Name Name Pen Flint Pen Flint 2018-07 Yes Usman [address] [facility] 09/20" 316" 0-02 [place] needle [facility] - 00:00: with Memoria 00 Victoza [facility] Atorvastati Atorvastati Yes Usman take [address] [facility] n Calcium n Calcium [place]s tablet by Lukes - mouth Memoria every day [facility] Furosemide Furosemide Yes Usman take [address] [facility] [place] tablet by Lukes - mouth Memoria twice a l day [facility] ent [facility] Tradjenta Tradjenta Yes Usman take [address] [facility] [place] tablet by Lukes - mouth Memoria every day [facility] Victoza Victoza Yes Usman INJECT 0.[address] [facility] Downs MG/DAY X 1 Lukes - WEEK THEN Memoria 1.2 l MG/DAY. [facility] MAX 1.8 ent MG/DAY Clinics ONCE A DAY SUBCUTANEO . Metoprolol Metoprolol Yes Usman take [address] [facility] Tartrate Tartrate Downs tablet by Mariza kes - mouth Memoria twice a l day Outpati ent Clinics Vitamin D-3 Vitamin D-3 Yes Usman as [facility] directed [facility]ukes - Memoria l Outpati ent Clinics Doxazosin Doxazosin Yes Usman take [address] [facility] Mesylate Mesylate Downs tablet by Mariza kes - mouth Memoria twice a l day Outpati ent Clinics Amlodipine Amlodipine Yes Usman take [address] [facility] Besylate Besylate Downs tablet by Mariza kes - mouth Memoria every day l Outpati ent Clinics Glimepiride Glimepiride Yes Usman take [address] [facility] [place] tablet by Lukes - mouth Memoria every day l Outpati ent Clinics Calcium Calcium Yes Usman TAKE BY [facility] Acetate Acetate Downs MOUTH 1 [facility]ukes - (Phos (Phos CAPSULE 3 Memoria Binder) Binder) TIMES A l DAY WITH Outpati FOOD AND 1 ent CAPSUE 2 Clinics TIMES WITH SNACKS Claritin Claritin Yes Usman [address] [facility] Downs Lukes - Memoria l Outpati ent Clinics Calcitriol Calcitriol Yes Usman TAKE [address] [facility] [place]s CAPSULES Lukes - BY MOUTH Memoria EVERY DAY l Outpati ent Clinics Levofloxaci Levofloxaci Yes Usman TAKE [address] [facility] n n [place]s TABLET BY Lukes - MOUTH Memoria EVERY DAY l Outpati ent Clinics Tramadol Tramadol Yes Usman (Schedule [facility] HCl HCl Downs IV Drug) Lukes - TAKE 1 Memoria TABLET BY l MOUTH Outpati EVERY 6 ent HOURS Clinics NEEDED FOR PAIN Acetaminoph Acetaminoph Yes Usman TAKE [address] [facility] en Extra en Extra Downs TABLETS BY L ukes - Strength Strength MOUTH Memori a EVERY 8 l HOURS Outpati NEEDED FOR ent PAIN Clinics Hydrochloro Hydrochloro Yes Usman TAKE [address] [facility] thiazide thiazide Downs TABLET BY Mariza kes - MOUTH Memoria EVERY DAY l Outpati ent Clinics Procedures This patient has no known procedures. Encounters Start End Encounter Admission Attending Care Care Encounter Source Date/Time Date/Time Type Type Clinicians Facility Department ID 2019-09-15 2019-09-15 Outpatient Matt Sutton [id number] [facility] 15:15:00 15:15[facility] Outpat[facility] Clinics 2019-09-14 2019-09-14 Outpatient Matt Sutton [id number] [facility] 07:56:00 07:56:00 [place] [facility] Medicine Outpati ent Clinics 2019-09-10 2019-09-10 [facility] [id number] 10:00:00 10:00:00 t Bone Bone and [facility] - and Joint [facility] a Clinic of [facility] 2019-09-07 2019-09-07 [facility] [id number] [facility] 09:39:00 09:39:00 [facility] [place] [facility] Medicine Outpati ent Clinics 2019-08-13 2019-08-13 [facility] [id number] 14:49:00 14:49:00 [facility] [place] [facility] Medicine Outpati ent Clinics 2019-06-25 2019-06-25 [facility] [id number] 11:04:00 11:04:00 [facility] [place] [facility] Medicine Outpati ent Clinics 2019-06-15 2019-06-15 [facility] [id number] 10:00:00 10:00:00 [facility] [place] [facility] Medicine [facility] Clin[facility] 2019-06-10 2019-06-10 [facility] [id number] 08:33:00 08:33:00 t [place] - Drive [facility] Medicine Outpati ent Clinics 2019-06-08 2019-06-08 [facility] [id number] 13:51:00 13:51:00 [facility] [address] [facility] Medicine Outpati ent Clinics 2019-04-08 2019-04-08 [facility] [id number] 16:33:00 16:33:00 t [place] [facility] Medicine Outpati ent Clinics 2019-03-27 2019-03-27 [facility] [id number] 08:38:00 13:00:00 Encounter Myriam Addison [id number] [place] [id number] Surgical [id number] [place] 07 2019-03-17 2019-03-17 Telephone [facility] [id number] 00:00:00 00:00:00 Leona Booth Cyn [id number] [place] [id number] Professio [id number] [address] 2019-03-17 2019-03-17 Telephone [facility] [id number] 00:00:00 00:00:00 Leona Emmy Addison [id number] [place] [id number] Professio [id number] [address] 2019-03-13 2019-03-13 [facility] [id number] [facility] St 08:45:00 08:45:00 [facility] Clinics 2019-03-12 2019-03-12 Office Neil [facility] [id number] 14:05:56 15:28:12 Visit Myriam Addison [id number] [place] [id number] Professio [id number] [address] 2019-03-10 2019-03-10 Orders Doctor DELONTE [id number] 00:00:00 00:00:00 Only Unassigned, REINA [id number] [place] [facility] [id number] Results This patient has no known results.
--- OUTSIDE RECORDS SUMMARY | 2019-11-24 00:42 | XMS REPORT ---
:1975 Author Organization eClinicalWorks Care Team Providers Name Role Phone Todd Davis Provider Role Unavailable Allergies No Known Allergies Problems Problem Type Condition Code Onset Dates Condition Statu s Problem End stage renal disease N18.6 Acti ve Problem LVH (left ventricular hypertrophy) I51.7 Active [...] insulin Problem HTN, goal below 130/80 I10 Activ e Medications Medication Code Code Instructions Start End Status Dosage System Date Date Pen [place] [facility] [id number] 31G X 5 MM Apr 08, Active 1 pen 09/20" subcutaneously 2019 needle once daily with Victoza Results No Known Results Summary Purpose eClinicalWorks Submission
--- OUTSIDE RECORDS SUMMARY | 2019-11-24 00:42 | XMS REPORT ---
[...] HTN, goal below 130/80 I10 Activ e Problem Vitamin D deficiency E55.9 Active Assessment Mixed hyperlipidemia E78.2 Active Problem Type 2 diabetes mellitus with E11.22 Active diabetic chronic kidney disease Assessment Type 2 diabetes mellitus with E11.22 Active diabetic chronic kidney disease Problem Kidney disease N28.9 Active Medications No Known Medications Results No Known Results Summary Purpose eClinicalWorks Submission
--- OUTSIDE RECORDS SUMMARY | 2019-11-24 00:42 | XMS REPORT ---
[...] goal below 130/80 I10 Activ e Medications No Known Medications Results No Known Results Summary Purpose Project [employer] Submission
--- OUTSIDE RECORDS SUMMARY | 2019-11-24 00:43 | XMS REPORT ---
:1975 Author Organization eClinicalWorks Care Team Providers Name Role Phone Todd Davis Provider Role Unavailable Allergies No Known Allergies Problems Problem Type Condition Code Onset Dates Condition Statu s Problem Seasonal allergies J30.2 Active Problem Dependence on renal dialysis Z99.2 Active Problem Vitamin D deficiency E55.9 Active Problem Anemia of chronic disease D63.8 Ac tive Problem Essential (primary) hypertension I10 Active Problem Abnormal gait R26.9 Active Problem Type 2 diabetes mellitus without E11.9 Active complication, without long-term current use of insulin Problem HTN, goal below 130/80 I10 Activ e Problem Morbid (severe) obesity due to E66.01 Active excess calories Problem Body mass index (BMI) of 36.0-36.9 Z68.36 Active in adult Assessment End stage renal disease N18.6 Acti ve Assessment Type 2 diabetes mellitus with E11.22 Active diabetic chronic kidney disease Problem Kidney disease N28.9 Active Problem End stage renal disease N18.6 Acti ve Problem Mixed hyperlipidemia E78.2 Active Problem Type 2 diabetes mellitus with E11.22 Active diabetic chronic kidney disease Problem LVH (left ventricular hypertrophy) I51.7 Active Medications No Known Medications Results No Known Results Summary Purpose eClinicalWorks Submission
--- OUTSIDE RECORDS SUMMARY | 2019-11-24 00:43 | XMS REPORT ---
:1975 Author Organization eClinicalWorks Care Team Providers Name Role Phone Todd Davis Provider Role Unavailable Allergies, Adverse Reactions, Alerts Substance Reaction Event Type N.K.D.A. Info Not Available Non Drug Allergy Problems Problem Type Condition Code Onset Dates Condition Statu s Assessment Weakness of both lower extremities R29.898 Active Assessment Abnormal gait R26.9 Active Assessment Anemia of chronic disease D63.8 Ac tive Assessment Body mass index (BMI) of 36.0-36.9 [...] tive Problem Essential (primary) hypertension I10 Active Assessment HTN, goal below 130/80 I10 Activ e Assessment Seasonal allergies J30.2 Active Problem Abnormal [...] stage renal disease N18.6 Acti ve Problem Type 2 diabetes mellitus with E11.22 Active diabetic chronic kidney disease Medications Medication Code Code Instructions Start End Status Dosage System Date Date Atorvastatin ND 64621956557 10 MG Orally Once Activ e take 1 Calcium a day tablet by mouth every day Furosemide ND 94277427057 40 MG Oral Twice Active take 1 a day tablet by mouth twice a day Tradjenta [facility] 28323482144 5 MG Oral Once a Active t julio 1 day tablet by mouth every day Victoza [facility] 81040514692 18 MG/3ML Active INJECT 0.6 Subcutaneous MG/DAY X 1 WEEK THEN 1.2 MG/DAY. MAX 1.8 MG/DAY ONCE A DAY SUBCUTANEO US. Pen [place] [facility] 30327001736 31G X 5 MM Apr 08, Active 1 pen 09/20" subcutaneously 2019 needle once daily with Victoza Metoprolol [facility] 61725555038 50 MG Oral Twice Active take 1 Tartrate a day tablet by mouth twice a day Vitamin D-[address] [facility] 77621881210 5000 UNIT Orally Active as directed Doxazosin [facility] 45006026370 2 MG Oral BID Active take 1 Mesylate tablet by mouth twice a day Amlodipine [facility] 97957540500 10 MG Orally Once Active take 1 Besylate a day tablet by mouth every day Glimepiride [facility] 46636060687 4 MG Orally Once Active take 1 a day tablet by mouth every day Calcium Acetate [facility] 89224097983 667 MG Oral Active TAKE BY (Phos Binder) MOUTH 1 CAPSULE 3 TIMES A DAY WITH FOOD AND 1 CAPSUE 2 TIMES WITH SNACKS Claritin [facility] 57674314615 10 MG Orally Once Active 1 tablet a day Results No Known Results Summary Purpose eClinicalWorks Submission
--- OUTSIDE RECORDS SUMMARY | 2019-11-24 00:43 | XMS REPORT ---
:1975 Author Organization eClinicalWorks Care Team Providers Name Role Phone Todd Davis Provider Role Unavailable Allergies No Known Allergies Problems Problem Type Condition Code Onset Dates Condition Statu s Problem HTN, goal below 130/80 I10 Activ e Problem Vitamin D deficiency E55.9 Active Problem Type 2 diabetes mellitus without E11.9 Active complication, without long-term current use of insulin Problem Abnormal gait R26.9 Active Problem Anemia of chronic disease D63.8 Ac tive Problem Primary osteoarthritis of right knee M17.11 Active Problem Morbid (severe) obesity due to E66.01 Active excess calories Problem Dependence on renal dialysis Z99.2 Active Problem Essential (primary) hypertension I10 Active Problem Body mass index (BMI) of 36.0-36.9 Z68.36 Active in adult Problem End stage renal disease N18.6 Acti ve Problem Mixed hyperlipidemia E78.2 Active Problem Type 2 diabetes mellitus with E11.22 Active diabetic chronic kidney disease Problem LVH (left ventricular hypertrophy) I51.7 Active Problem Kidney disease N28.9 Active Problem Seasonal allergies J30.2 Active Medications No Known Medications Results No Known Results Summary Purpose eClinicalWorks Submission
--- OUTSIDE RECORDS SUMMARY | 2019-11-24 00:43 | XMS REPORT ---
[...] of 36.0-36.9 Z68.36 Active in adult Assessment Acute pain of right knee M25.561 Act [place] Problem Kidney disease N28.9 Active Problem End stage renal disease N18.6 Acti ve Problem Mixed hyperlipidemia E78.2 Active Problem Type 2 diabetes mellitus with E11.22 Active diabetic chronic kidney disease Problem LVH (left ventricular hypertrophy) I51.7 Active Medications No Known Medications Results No Known Results Summary Purpose eClinicalWorks Submission
--- OUTSIDE RECORDS SUMMARY | 2019-11-24 00:44 | XMS REPORT ---
:1975 Author Organization eClinicalWorks Care Team Providers Name Role Phone Usman Downs Provider Role Unavailable Allergies, Adverse Reactions, Alerts [...] Ac tive Problem Primary osteoarthritis of right M17.11 Active knee Problem Morbid (severe) obesity due to E66.01 Active excess calories Problem Dependence on renal dialysis Z99.2 Active Problem Essential (primary) hypertension I10 Active Problem Body mass index (BMI) of 36.0-36.9 Z68.36 Active in adult Assessment Pain, joint, knee, right M25.561 Act [place] Assessment Primary osteoarthritis of right M17.11 Active knee Assessment Right knee sprain S83.91XA Active Problem End stage renal disease N18.6 Acti ve Problem Mixed hyperlipidemia E78.2 Active Problem Type 2 diabetes mellitus with E11.22 Active diabetic chronic kidney disease Problem LVH (left ventricular hypertrophy) I51.7 Active Problem Kidney disease N28.9 Active Problem Seasonal allergies J30.2 Active Medications Medication Code Code Instructions Start End Status Dosage System Date Date Amlodipine Besylate [facility] 68194042103 10 MG Orally Act [place] take 1 Once a day tablet by mouth every day Victoza [facility] 77011653302 18 MG/3ML Active INJECT Subcutaneous 0.6 MG/DAY X 1 WEEK THEN 1.2 MG/DAY. MAX 1.8 MG/DAY ONCE A DAY SUBCUTANE OUS. Calcitriol [facility] 14184064495 0.25 MCG Oral Active SHARITA E 2 CAPSULES BY MOUTH EVERY DAY Levofloxacin [facility] 97128557472 500 MG Oral Active [place]ARITA E 1 TABLET BY MOUTH EVERY DAY Claritin [facility] 58021902082 10 MG Orally Active 1 tabl et Once a day Atorvastatin Calcium [facility] 55054928398 10 MG Orally Ac tive take 1 Once a day tablet by mouth every day Calcium Acetate (Phos [facility] 70474988195 667 MG Oral Ac tive TAKE BY Binder) MOUTH 1 CAPSULE 3 TIMES A DAY WITH FOOD AND 1 CAPSUE 2 TIMES WITH SNACKS Metoprolol Tartrate [facility] 45822675006 50 MG Oral Twice Active take 1 a day tablet by mouth twice a day Pen [place] 09/20" [facility] 85186534739 31G X 5 MM Apr 08, Active 1 pen subcutaneously 2019 needle once daily with Victoza Glimepiride [facility] 07109782571 4 MG Orally Once Active take 1 a day tablet by mouth every day Tramadol HCl [facility] 73826968755 50 MG Oral Active (Martine edule IV Drug) TAKE 1 TABLET BY MOUTH EVERY 6 HOURS NEEDED FOR PAIN Acetaminophen Extra [facility] 63662016582 500 MG Oral Acti ve TAKE 2 Strength TABLETS BY MOUTH EVERY 8 HOURS NEEDED FOR PAIN Hydrochlorothiazide [facility] 31168033925 12.5 MG Oral Act [place] TAKE 1 TABLET BY MOUTH EVERY DAY Vitamin D-3 [facility] 06281571808 5000 UNIT Orally Active as directed Furosemide [facility] 80040302197 40 MG Oral Twice Active take 1 a day tablet by mouth twice a day Doxazosin Mesylate [facility] 44999896148 2 MG Oral BID Act [place] take 1 tablet by mouth twice a day Tradjenta [facility] 15329391328 5 MG Oral Once a Active t julio 1 day tablet by mouth every day Results No Known Results Summary Purpose eClinicalWorks Submission
--- OUTSIDE RECORDS SUMMARY | 2019-11-24 00:44 | XMS REPORT ---
:1975 Author Organization eClinicalWorks Care Team Providers Name Role Phone Todd Davis Provider Role Unavailable Allergies, Adverse Reactions, Alerts Substance Reaction Event Type N.K.D.A. Info Not Available Non Drug Allergy Problems Problem Type Condition Code Onset Dates Condition Statu s Assessment Asymptomatic bacteriuria R82.71 Act [place] Assessment Weakness of both lower extremities R29.898 Active Assessment Abnormal gait R26.9 Active Assessment Anemia of chronic disease D63.8 Ac tive Assessment Body mass index (BMI) of 36.0-36.9 Z68.36 Active in adult Assessment Morbid (severe) obesity due to E66.01 Active excess calories Problem LVH (left ventricular hypertrophy) I51.7 Active Assessment LVH (left ventricular hypertrophy) I51.7 Active Problem Seasonal allergies J30.2 Active Assessment Vitamin D deficiency E55.9 Active Problem HTN, goal below 130/80 I10 Activ e Problem Vitamin D deficiency E55.9 Active Problem Type 2 diabetes mellitus without E11.9 Active complication, without long-term current use of insulin Problem Abnormal gait R26.9 Active Problem Anemia of chronic disease D63.8 Ac tive Assessment Mixed hyperlipidemia E78.2 Active Assessment HTN, goal below 130/80 I10 Activ e Problem Primary osteoarthritis of right M17.11 Active knee Assessment Seasonal allergies J30.2 Active Problem Morbid (severe) obesity due to E66.01 Active excess calories Problem Dependence on renal dialysis Z99.2 Active Problem Essential (primary) hypertension I10 Active Problem Body mass index (BMI) of 36.0-36.9 Z68.36 Active in adult Assessment Type 2 diabetes mellitus with E11.22 Active diabetic chronic kidney disease Assessment Dependence on renal dialysis Z99.2 Active Assessment End stage renal disease N18.6 Acti ve Problem End stage renal disease N18.6 Acti ve Problem Mixed hyperlipidemia E78.2 Active Problem Type 2 diabetes mellitus with E11.22 Active diabetic chronic kidney disease Problem Kidney disease N28.9 Active Medications Medication Code Code Instructions Start End Status Dosage System Date Date Doxazosin [facility] 86701986833 2 MG Oral BID Active take 1 Mesylate tablet by mouth twice a day Toujeo SoloStar [facility] 26851954628 300 UNIT/ML Active INJECT SUB Subcutaneous 30 UNITS DAILY Glimepiride ND 63387954130 4 MG Orally Once Active take 1 a day tablet by mouth every day Tradjenta ND 38016769299 5 MG Oral Once a Active t julio 1 day tablet by mouth every day Vitamin D-3 ND 46616378001 5000 UNIT Orally Active as directed Amlodipine ND 92440251939 10 MG Orally Once Active take 1 Besylate a day tablet by mouth every day Metoprolol ND 91111335938 50 MG Oral Twice Active take 1 Tartrate a day tablet by mouth twice a day Victoza [facility] 21355086780 18 MG/3ML Active INJECT 0.6 Subcutaneous MG/DAY X 1 WEEK THEN 1.2 MG/DAY. MAX 1.8 MG/DAY ONCE A DAY SUBCUTANEO US. Pen [place] [facility] 35424316825 31G X 5 MM Apr 08, Active 1 pen 09/20" subcutaneously 2019 needle once daily with Victoza Calcium Acetate [facility] 63152502281 667 MG Oral Active TAKE BY (Phos Binder) MOUTH 1 CAPSULE 3 TIMES A DAY WITH FOOD AND 1 CAPSUE 2 TIMES WITH SNACKS Atorvastatin ND 02264247533 10 MG Orally Once Activ e take 1 Calcium a day tablet by mouth every day Claritin [facility] 25056411819 10 MG Orally Once Active 1 tablet a day Furosemide ND 81713696102 40 MG Oral Twice Active take 1 a day tablet by mouth twice a day Results No Known Results Summary Purpose eClinicalWorks Submission
[2019-11-24] MEDS ORDERED: NA CHLORIDE 0.9% 1,000 ML ONE (01:28)
[2019-11-24] MEDS ORDERED: MORPHINE 4 MG/ML SYR ONE (01:28)
[2019-11-24] MEDS ORDERED: ONDANSETRON 4 MG/2 ML VIAL ONE (01:28)
[2019-11-24 01:32] LABS: Basophils % 0.1 % (0-1.3); Hematocrit 30.2 % (39.6-49.0); Lymphocytes % 6.6 % (15.3-44.8); MPV 8.4 fL (7.6-11.3); RBC Red Blood Cell Count 3.49 M/uL (4.33-5.43)
[2019-11-24 01:50] LABS: Bilirubin Direct 0.2 mg/dL (0-0.2); Bilirubin Total 0.5 mg/dL (0.2-1.0); Protein, Total 8.2 g/dL (6.4-8.2)
[2019-11-24 01:53] LABS: Potassium 2.8 mmol/L (3.5-5.1)
--- NOTE | 2019-11-24 02:05 | EDPHYS ---
Physician Documentation [facility] Name: Nikita Bartlett Age: 43 yrs Sex: Male : 1975 Arrival Date: 11/24/2019 Time: 00:43 Bed 6 Private MD: ED Physician Albin Sutherland HPI: 11/23 01:49 This 43 yrs old Male presents to ER via EMS with complaints of tw4 Nausea/Vomiting, Weakness. 01:49 The patient presents to the emergency department with nausea, vomiting, 3 times since tw4 the onset of symptoms. Onset: The symptoms/episode began/occurred today. Possible causes: unknown. The symptoms are aggravated by nothing. The symptoms are alleviated by nothing. Associated signs and symptoms: The patient has no apparent associated signs or symptoms. Severity of symptoms: At their worst the symptoms were mild. The patient has not experienced similar symptoms in the past. Historical: - Allergies: 00:54 No Known Allergies; rv - PMHx: 00:54 "Leaking heart valve"; Anemia; Diabetes - NIDDM; Dialysis; Enlarged Heart; rv Hypertension; osteomyolitis; - PSHx: 00:54 None; rv - Immunization history:: Adult Immunizations up to date, Flu vaccine is up to date. - Social history:: Smoking status: Patient/guardian denies using tobacco, the patient reports quitting approximately 1 years ago. ROS: 01:49 Constitutional: Negative for fever, chills, and weight loss, Eyes: Negative for injury, tw4 pain, redness, and discharge, Neck: Negative for injury, pain, and swelling, Cardiovascular: Negative for chest pain, palpitations, and edema, Respiratory: Negative for shortness of breath, cough, wheezing, and pleuritic chest pain, MS/Extremity: Negative for injury and deformity, Skin: Negative for injury, rash, and discoloration, Neuro: Negative for headache, weakness, numbness, tingling, and seizure. 01:49 Cardiovascular: 01:49 Abdomen/GI: Positive for abdominal pain, nausea and vomiting, Negative for nausea, vomiting, and diarrhea, nausea, vomiting, diarrhea, constipation, abdominal cramps, abdominal distension, anorexia, black/tarry stool, rectal pain, rectal bleeding, bowel incontinence. Exam: 01:49 Constitutional: This is a well developed, well nourished patient who is awake, alert, tw4 and in no acute distress. Head/Face: Normocephalic, atraumatic. Chest/axilla: Normal chest wall appearance and motion. Nontender with no deformity. No lesions are appreciated. Cardiovascular: Regular rate and rhythm with a normal S1 and S2. No gallops, murmurs, or rubs. Normal PMI, no JVD. No pulse deficits. Respiratory: Lungs have equal breath sounds bilaterally, clear to auscultation and percussion. No rales, rhonchi or wheezes noted. No increased work of breathing, no retractions or nasal flaring. Abdomen/GI: Soft, non-tender, with normal bowel sounds. No distension or tympany. No guarding or rebound. No evidence of tenderness throughout. Back: No spinal tenderness. No costovertebral tenderness. Full range of motion. MS/ Extremity: Pulses equal, no cyanosis. Neurovascular intact. Full, normal range of motion. Neuro: Awake and alert, GCS 15, oriented to person, place, time, and situation. Cranial nerves II-XII grossly intact. Motor strength 5/5 in all extremities. Sensory grossly intact. Cerebellar exam normal. Normal gait. Vital Signs: 00:45 BP 128 / 80; Pulse 99; Resp 18; Temp 99.5(TE); Pulse Ox 99% on R/A; oe 01:30 BP 118 / 82; Pulse 103; Resp 17; Pulse Ox 98% ; rv 03:48 BP 138 / 89; Pulse 103; Resp 18; Temp 99; Pulse Ox 98% on R/A; rv 04:29 BP 103 / 70; Pulse 104; Resp 15; Temp 99; Pulse Ox 97% on R/A; rv MDM: 00:47 Patient medically screened. tw4 03:36 Differential diagnosis: Nonspecific abd pain, gastritis, cholecystitis. Data reviewed: tw4 vital signs, nurses notes. Data interpreted: Pulse oximetry: Interpretation: normal. Counseling: I had a detailed discussion with the patient and/or guardian regarding: the historical points, exam findings, and any diagnostic results supporting the discharge/admit diagnosis. Special discussion: I discussed with the patient/guardian in detail that at this point there is no indication for admission to the hospital. It is understood, however, that if the symptoms persist or worsen the patient needs to return immediately for re-evaluation. 03:37 Test interpretation: by ED physician or midlevel provider: ECG, plain radiologic 4 studies. Physician consultation: Ani Nguyen MD regarding admission, to the medical/surgical unit. patient's condition, and will see patient in inpatient room. 11/23 00:48 Order name: Basic Metabolic Panel; Complete Time: 04:12 [facility] 11/23 04:12 Interpretation: Normal except: NA 134; K 2.8; CL 94; GLUC 177; BUN 49; CRE 11.00. [facility] 11/23 00:48 Order name: CBC with Diff; Complete Time: 04:12 [facility] 11/23 04:12 Interpretation: Normal except: WBC 15.6; RBC 3.49; HGB 10.4; HCT 30.2; KAI% 89.4; LYM% tw4 6.6; MN% 2.7; NEUT A 13.9. 11/23 00:48 Order name: Hepatic Function; Complete Time: 04:12 [facility] 11/23 04:13 Interpretation: Normal except: A/G 0.6; GLOB 5.2; ALB 3.0; ALK 139. [facility] 11/23 00:48 Order name: Lipase; Complete Time: 04:12 [facility] 11/23 04:14 Interpretation: Within normal limits: LIP 157. [facility] 11/23 01:28 Order name: Body Fluid Culture [facility] 11/23 01:28 Order name: Fluid Cell Count,Body; Complete Time: 04:12 [facility] 11/23 04:13 Interpretation: Normal except: APPEAR TURBID; FLUID WBC 3053; NEUT [J] 98. [facility] 11/23 01:52 Order name: Manual Differential; Complete Time: 04:12 [facility] 11/23 04:13 Interpretation: Normal except: SEGS 33; BANDS [F] 46; LYM 11; META 6; MYELO 2. [facility] 11/23 02:52 Order name: CONS Pharmacy Consult [facility] 11/23 02:52 Order name: CONS Physician Consult [facility] 11/23 00:48 Order name: IV Saline Lock; Complete Time: 01:06 [facility] 11/23 00:48 Order name: Labs collected and sent; Complete Time: 01:06 [facility] 11/23 02:52 Order name: Renal EDNJ Administered Medications: 01:20 Drug: Zofran (Ondansetron) 4 mg Route: IVP; Site: left antecubital; rv 03:38 Follow up: Response: No adverse reaction rv 01:22 Drug: morphine 4 mg Route: IVP; Site: left forearm; rv 03:38 Follow up: Response: No adverse reaction; Marked relief of symptoms; Pain is decreased; rv RASS: Alert and Calm (0) 01:29 Not Given (Physician Discretion): NS 0.9% 1000 ml IV at 1 bolus Per protocol; 1000 mL rv bolus 03:37 Drug: Potassium Effervescent Tablet 25 mEq Route: PO; rv 03:48 Follow up: Response: Medication administered at discharge. rv 03:38 Drug: vancoMYCIN 1 grams Route: IVPB; Infused Over: 2 hrs; Site: right forearm; rv 03:48 Follow up: IV Status: Infusion continued upon transfer rv Disposition: 11/24/19 02:05 Hospitalization ordered by Ani Nguyen for Inpatient Admission. Preliminary diagnosis are Spontaneous bacterial peritonitis, Chronic kidney disease, stage 5. - Bed requested for Telemetry/MedSurg (Inpatient). - Status is Inpatient Admission. mw2 - Condition is Stable. - Problem is new. - Symptoms have improved. Signatures: Dispatcher [employer] Mariana Aguillon RN RN Albin Sutherland MD MD tw4 Renetta Richmond mw2 Fabian Young RN RN rv Corrections: (The following items were deleted from the chart) 03:34 02:05 Hospitalization Ordered by Ani Nguyen MD for Inpatient Admission. Preliminary cg diagnosis is Spontaneous bacterial peritonitis; Chronic kidney disease, stage 5. Bed requested for Telemetry/MedSurg (Inpatient). Status is Inpatient Admission. Condition is Stable. Problem is new. Symptoms have improved. tw4 04:28 03:34 11/24/2019 02:05 Hospitalization Ordered by Ani Nguyen MD for Inpatient mw2 Admission. Preliminary diagnosis is Spontaneous bacterial peritonitis; Chronic kidney disease, stage 5. Bed requested for Telemetry/MedSurg (Inpatient). Status is Inpatient Admission. Condition is Stable. Problem is new. Symptoms have improved. cg
--- NOTE | 2019-11-24 02:05 | ER ---
Nurse's Notes [facility] Name: Nikita Bartlett Age: 43 yrs Sex: Male : 1975 Arrival Date: 11/24/2019 Time: 00:43 Bed 6 Private MD: Diagnosis: Spontaneous bacterial peritonitis;Chronic kidney disease, stage 5 Presentation: 11/23 00:50 Chief complaint: EMS states: PATIENT DOING PERITONEAL DIALYSIS AND HAD A VERY CLOUDY rv OUTPUT. 15 MINUTES AFTER FINISHING DIALYSIS, PATIENT STARTED TO HAVE SOME NAUSEA, VOMITING AND DIARRHEA. COMPLAINS OF CONTINUOUS CRAMPING PAIN OF THE ABDOMEN, 5/10 PAIN SCALE. Coronavirus screen: Proceed with normal triage. Ebola Screen: No symptoms or risks identified at this time. Initial Sepsis Screen: Does the patient meet any 2 criteria? No. Patient's initial sepsis screen is negative. Does the patient have a suspected source of infection? No. Patient's initial sepsis screen is negative. Risk Assessment: Do you want to hurt yourself or someone else? Patient reports no desire to harm self or others. Onset of symptoms was November 23, 2019 at 22:30. 00:50 Method Of Arrival: EMS: [facility] 00:50 Acuity: OCTAVIO 3 rv Triage Assessment: 00:54 General: Appears comfortable, Behavior is calm, cooperative. Pain: Complains of pain in rv abdomen. EENT: No signs and/or symptoms were reported regarding the EENT system. Neuro: Level of Consciousness is awake, alert, obeys commands, Oriented to person, place, time, situation. Cardiovascular: Patient's skin is warm and dry. Rhythm is sinus tachycardia. Respiratory: Airway is patent Breath sounds are clear bilaterally. GI: Abdomen is round non-distended, Reports diarrhea, nausea, vomiting. : No signs and/or symptoms were reported regarding the genitourinary system. Derm: Skin is intact. Historical: - Allergies: 00:54 No Known Allergies; rv - PMHx: 00:54 "Leaking heart valve"; Anemia; Diabetes - NIDDM; Dialysis; Enlarged Heart; rv Hypertension; osteomyolitis; - PSHx: 00:54 None; rv - Immunization history:: Adult Immunizations up to date, Flu vaccine is up to date. - Social history:: Smoking status: Patient/guardian denies using tobacco, the patient reports quitting approximately 1 years ago. Screenin:56 Abuse screen: Denies threats or abuse. Denies injuries from another. Nutritional rv screening: No deficits noted. Tuberculosis screening: No symptoms or risk factors identified. Fall Risk None identified. Assessment: 01:52 Reassessment: Patient and/or family updated on plan of care and expected duration. Pain rv level reassessed. Patient is alert, oriented x 3, equal unlabored respirations, skin warm/dry/pink. Vital Signs: 00:45 BP 128 / 80; Pulse 99; Resp 18; Temp 99.5(TE); Pulse Ox 99% on R/A; oe 01:30 BP 118 / 82; Pulse 103; Resp 17; Pulse Ox 98% ; rv 03:48 BP 138 / 89; Pulse 103; Resp 18; Temp 99; Pulse Ox 98% on R/A; rv 04:29 BP 103 / 70; Pulse 104; Resp 15; Temp 99; Pulse Ox 97% on R/A; rv ED Course: 00:43 Patient arrived in ED. cl3 00:47 Albin Sutherland MD is Attending Physician. tw4 00:50 Fabian Young RN is Primary Nurse. rv 00:53 Triage completed. rv 00:55 Arm band placed on Patient placed in the treatment room, on a stretcher, Patient rv notified of wait time. 00:56 Patient has correct armband on for positive identification. Pulse ox on. NIBP on. rv 01:15 Inserted saline lock: 20 gauge in right forearm, using aseptic technique. Blood oe collected. 01:53 Notified ED physician of a critical lab result(s). K 2.8, Creatinine 11.0. lp1 02:04 Ani Nguyen MD is Hospitalizing Provider. tw4 03:08 Notified ED physician of a critical lab result(s). Bands 46%. lp1 03:49 No provider procedures requiring assistance completed. IV is patent, with fluids rv infusing freely, with good blood return, Patient admitted, IV remains in place. Administered Medications: 01:20 Drug: Zofran (Ondansetron) 4 mg Route: IVP; Site: left antecubital; rv 03:38 Follow up: Response: No adverse reaction rv 01:22 Drug: morphine 4 mg Route: IVP; Site: left forearm; rv 03:38 Follow up: Response: No adverse reaction; Marked relief of symptoms; Pain is decreased; rv RASS: Alert and Calm (0) 01:29 Not Given (Physician Discretion): NS 0.9% 1000 ml IV at 1 bolus Per protocol; 1000 mL rv bolus 03:37 Drug: Potassium Effervescent Tablet 25 mEq Route: PO; rv 03:48 Follow up: Response: Medication administered at discharge. rv 03:38 Drug: vancoMYCIN 1 grams Route: IVPB; Infused Over: 2 hrs; Site: right forearm; rv 03:48 Follow up: IV Status: Infusion continued upon transfer rv Outcome: 02:05 Decision to Hospitalize by Provider. tw4 03:49 Admitted to Med/surg accompanied by tech, via wheelchair, room 224, with chart, Report rv called to SILAS PHAN 03:49 Condition: good 03:49 Instructed on the need for admit. 04:28 Patient left the ED. mw2 Signatures: Elen Dover RN RN lp1 Home Joe Terrence, MD MD 4 Renetta Richmond mw2 Fabian Young RN RN rv Noel Yao cl3
[2019-11-24 02:32] LABS: Appearance TURBID (CLEAR); Body Fluid Source PERITONEAL; Body Fluid WBC 3053 /mm^3; Color of fluid Colorless (COLORLESS)
[2019-11-24] MEDS ORDERED: MORPHINE 2 MG/ML SYR IV PRN (02:43)
[2019-11-24] MEDS ORDERED: ACETAMINOPHEN 500 MG TAB PO PRN (02:43)
[2019-11-24] MEDS: ONDANSETRON 4 MG/2 ML VIAL IV SCH ×6 (03:00→23:00)
[2019-11-24 03:09] LABS: Blood Morphology Comment NOTED (NOT SEEN); Platelet Estimate ADEQ
[2019-11-24 03:10] LABS: Basophilic Stippling 1+; Polychromasia 1+
[2019-11-24] MEDS ORDERED: VANCOMYCIN 1 GM/VIAL ONE (03:32)
[2019-11-24] MEDS ORDERED: NA CHLORIDE 0.9% 250 ML ONE (03:33)
[2019-11-24] MEDS ORDERED: POTASSIUM 25 MEQ EFFERV TAB ONE (03:33)
[2019-11-24] MEDS ORDERED: Levofloxacin 250mg IV 250 MG/50 ML BAG IV SCH (06:00)
[2019-11-24] MEDS ORDERED: VANCOMYCIN/NS 1 gm 1 GM/250 ML BAG IVPB ONE (06:30)
[2019-11-24] MEDS: METOPROLOL TAR 25 MG TAB PO SCH ×2 (06:36→17:40)
--- NOTE | 2019-11-24 08:40 | P.HP ---
Certification for Inpatient Patient admitted to: Inpatient With expected LOS: >2 Midnights Patient will require the following post-hospital care: None Practitioner: I am a practitioner with admitting privileges, knowledge of patient current condition, hospital course, and medical plan of care. Services: Services provided to patient in accordance with Admission requirements found in Title 42 Section 412.3 of the Code of Federal Regulations Patient History Date of Service: 11/24/19 Reason for admission: Abdominal pain; nausea and vomiting; diarrhea History of Present Illness: Patient is a 43-year-old gentleman with a history of end-stage renal disease on peritoneal dialysis, who presents to the hospital with abdominal pain along with nausea and vomiting. Patient had a peritoneal dialysis catheter placed in March. This was done in [facility] by the general surgeon. Patient has not been having any problems until he started having abdominal pain along with nausea and vomiting. Patient came to the emergency room because the nausea vomiting was not improving. In the emergency room patient was found have a leukocytosis with bandemia. Peritoneal fluid was accessed and sent to the laboratory for evaluation of peritonitis. Cultures have been obtained as well. Patient been started on IV antibiotic therapy. Nephrology has been consulted. Clinically patient does not appear to be having that much pain on exam. There is no rebound regarding. Will discuss with Nephrology regarding plan of care. Allergies No Known Drug Allergies Allergy (Verified 11/24/19 04:29) Unknown - Past Medical/Surgical History Has patient received pneumonia vaccine in the past: No Diabetic: Yes -: Diabetes- NIDDM -: Hypertension -: Enlarge heart -: "Leaking heart Valve" -: Anemia -: Right tibia sx r/t fx Psychosocial/ Personal History: His preference would be for him to have doctors and nurses who are [place]ron[place]. - Family History Father Medical History: Cancer Mother Medical History: Diabetes - Social History Smoking Status: Former smoker Alcohol use: Yes CD- Drugs: No Caffeine use: Yes Place of Residence: Home Review of Systems 10-point ROS is otherwise unremarkable Physical Examination - Vital Signs Temperature: 98.4 F Blood Pressure: 97/60 Pulse: 98 Respirations: 18 Pulse Ox (%): 98 - Physical Exam General: Alert, In no apparent distress, Oriented x3 HEENT: Atraumatic, PERRLA, Mucous membr. moist/pink, EOMI, Sclerae nonicteric Neck: Supple, 2+ carotid pulse no bruit, No LAD, Without JVD or thyroid abnormality Respiratory: Clear to auscultation bilaterally, Normal air movement Cardiovascular: Regular rate/rhythm, Normal S1 S2 Gastrointestinal: Normal bowel sounds, Soft and benign, Non-distended, No tenderness Musculoskeletal: No clubbing, No swelling, No tenderness Integumentary: No rashes Neurological: Normal gait, Normal speech, Normal strength at 5/5 x4 extr, Normal tone, Sensation intact, Cranial nerves 3-12 intact, Normal affect Lymphatics: No axilla or inguinal lymphadenopathy - Studies Laboratory Data (last 24 hrs) 11/24/19 01:08: WBC 15.6 H, Hgb 10.4 L, Hct 30.2 L, Plt Count 207 11/24/19 01:08: Sodium 134 L, Potassium 2.8 L*, BUN 49 H, Creatinine 11.00 H*, Glucose 177 H, Total Bilirubin 0.5, AST 20, ALT 24, Alkaline Phosphatase 139 H, Lipase 157 Assessment & Plan - Problems (Diagnosis) (1) Abdominal pain Current Visit: Yes Status: Acute (2) Intractable nausea and vomiting Current Visit: Yes Status: Acute (3) Gastroenteritis Current Visit: Yes Status: Acute (4) Status post peritoneal dialysis Current Visit: Yes Status: Acute (5) Peritoneal dialysis catheter in place Current Visit: Yes Status: Acute (6) ESRD (end stage renal disease) Current Visit: No Status: Acute (7) History of diabetes mellitus, type II Current Visit: No Status: Chronic (8) Hypertension Current Visit: No Status: Chronic Qualifiers: Hypertension type: essential hypertension Qualified Code(s): I10 - Essential (primary) hypertension - Plan 1. Will check culture was all 2. Continue with IV antibiotics 3. Continue with pain control 4. NPO 5. Nephrology consultation; clinically patient appears to be doing well and may need imaging studies at this time. Will discuss the case with Nephrology. 6. Serial H&H, and we will monitor CBC, BMP, LFTs and lipase along with electrolytes. 7. Monitor renal function closely 8. Will hold off on replacing electrolyte given the potassium is low because of renal disease 9. GI and DVT prophylaxis Discharge Plan: Home Plan to discharge in: 48 Hours - Advance Directives Does patient have a Living Will: No Does patient have a Durable POA for Healthcare: No - Code Status/Comfort Care Code Status Assessed: Yes Code Status: Full Code Critical Care: No Time Spent Managing PTS Care (In Minutes): 45
[2019-11-24] MEDS ORDERED: GLIMEPIRIDE 2 MG TABLET PO SCH (09:00)
[2019-11-24] MEDS: AMLODIPINE 10 MG TAB PO SCH (09:00)
[2019-11-24] MEDS: DOXAZOSIN 2 MG TAB PO SCH ×2 (09:00→20:52)
[2019-11-24] MEDS: CALCITROL 0.25 MCG CAP PO SCH (09:19)
[2019-11-24] MEDS: ATORVASTATIN 10 MG TAB PO SCH (09:21)
[2019-11-24] MEDS: CA ACETATE 667 MG CAP PO SCH ×3 (09:21→17:40)
[2019-11-24] MEDS: ASPIRIN EC 81 MG TAB PO SCH (09:21)
[2019-11-24] MEDS: CEFTRIAXONE/SWI 2gm 2 GM/20 ML SYR IV SCH (11:43)
--- NOTE | 2019-11-24 15:50 | P.PN ---
Subjective Date of Service: 11/24/19 Chief Complaint: Abdominal pain; nausea and vomiting; diarrhea Physical Examination - Vital Signs Temperature: 99 F Blood Pressure: 101/66 Pulse: 95 Respirations: 18 Pulse Ox (%): 99 - Studies Laboratory Data (last 24 hrs) 11/24/19 01:08: WBC 15.6 H, Hgb 10.4 L, Hct 30.2 L, Plt Count 207 11/24/19 01:08: Sodium 134 L, Potassium 2.8 L*, BUN 49 H, Creatinine 11.00 H*, Glucose 177 H, Total Bilirubin 0.5, AST 20, ALT 24, Alkaline Phosphatase 139 H, Lipase 157 Microbiology Data (last 24 hrs): 11/24/19 01:30 Body Fluid - Abdomen Gram Stain - Final Assessment & Plan Physician Review Additional Text: Spoke with nephrology. Patient will require permanent dialysis catheter as the patient will be transition from peritoneal dialysis to hemodialysis. Spoke with surgery who will place catheter tomorrow.
[2019-11-24] MEDS ORDERED: KCL 20 MEQ/100 mL IVPB 20 MEQ/100 ML BAG IV SCH (16:00)
[2019-11-24] MEDS ORDERED: GENTAMICIN IV ONE (17:00)
[2019-11-24] MEDS ORDERED: VANCOMYCIN IV ONE (17:00)
[2019-11-24] MEDS ORDERED: NA CHLORIDE 0.9% IV ONE (17:00)
[2019-11-24 18:19] LABS: Absolute Lymphocytes (CBC) 1.2 K/uL (0.7-4.9); Basophils % 0.4 % (0-1.3); Hematocrit 28.7 % (39.6-49.0); MPV 8.4 fL (7.6-11.3); RBC Red Blood Cell Count 3.33 M/uL (4.33-5.43)
[2019-11-24 18:28] LABS: Albumin 2.7 g/dL (3.4-5.0); Bilirubin Total 0.5 mg/dL (0.2-1.0); Magnesium 1.8 mg/dL (1.8-2.4); Phosphorus 5.2 mg/dL (2.5-4.9); Potassium 3.1 mmol/L (3.5-5.1); Protein, Total 7.6 g/dL (6.4-8.2)
--- NOTE | 2019-11-24 20:36 | CON ---
Date of Consultation: 11/24/2019 Brief History Of Present Illness: Patient is a 43-year-old male with past medical history of end-sta ge renal disease, on peritoneal dialysis who came in with hospital with worsening abdominal pain, con cerning for spontaneous bacterial peritonitis. He had his hemodialysis catheter placed at [facility] back in March. It has never quite functioned properly. He has never had the vol umes returned and did not get adequate dialysis through this tract and with a recent concern for SBP he is considered a candidate for hemodialysis transition at this point. He has discussed this with Dm Garibay and Dr. Rosado and has decided to proceed with the hemodialysis at this point and we will r econsider his options coming forward thereafter. Past Medical History: Significant for diabetes, hypertension, cardiomegaly, regurgitant heart valves , anemia. Past Surgical History: Includes a right IJ peritoneal dialysis catheter placement, right tibial surg trey after fracture. Allergies: NO KNOWN DRUG ALLERGIES. Home Medications: Include Norvasc, Lipitor, Lasix, Amaryl, Tradjenta, Victoza, metoprolol, aspirin. Review of Systems: Ten-point review of systems other than in HPI denies. Physical Examination: At the time of my examination his BMI is 33.4. Vital Signs: Blood pressure 101/66, pulse 95, respiratory rate 18, temperature 98.0. General: He is awake, alert, and oriented. Psychiatric: Appropriate. Conversive. HEENT: Normocephalic. Sclerae icteric. Mucous members are moist. Oropharynx clear. Neck: Supple. No JVD. He has a well-healed surgical scar in the right internal jugular position co nsistent with having a previous catheter placed there. Chest: Normal to expansion and excursion. Cardiovascular: Regular rate and rhythm. Pulmonary: Clear to auscultation bilaterally. Abdomen: Soft. There is a peritoneal dialysis catheter coming out at the infraumbilical left of mid line position with no obvious pus or infection. The effluent appears clear within the tubing, but is not currently engaged. Extremities: No clubbing, cyanosis, or edema. Skin: Warm and dry. Laboratory Data: Reveals a white blood count of 15.6, hemoglobin 10.4, hematocrit of 32, platelet co unt is 207. His neutrophils are 89. His bands are 46. His sodium 134, potassium 2.8, chloride 94, carbon dioxide 26, BUN 49, creatinine is 11, glucose is 177. His lactic acid 1.5. His peritoneal fl uid was turbid with 3053 white blood cells, 98 neutrophils. Assessment And Plan: This is a 43-year-old male who comes in with possible spontaneous bacterial per itonitis in need of dialysis access. As such, I have explained the risks, benefits, and alternatives of placement of a tunneled hemodialysis catheter including, but not limited to bleeding, infection, damage to surrounding tissue, need for further operation and procedure, pneumothorax, injury to major vessels. Patient agrees to proceed as indicated. MARIBEL/MODL Voice ID: [id number] Report ID: [id number]
[2019-11-24] MEDS: DOCUSATE NA 100 MG CAP PO SCH (20:52)
--- NOTE | 2019-11-24 21:06 | CON ---
Date of Consultation: 11/24/2019 Reason For Consultation: End-stage renal disease. History Of Present Illness: Mr. Bartlett is a 43-year-old male who presented with acute abdominal pa in. The patient was diagnosed with acute peritoneal dialysis peritonitis. Consultation was millicent santana for management of end-stage renal disease, as well as peritonitis. Mr. Bartlett started dialysis approximately 1 year ago. He was initially started on hemodialysis and switched over to peritoneal dialysis in March of last year. The patient has been stable on dial ysis; however, he has had some difficulties with performing all of his treatments. He was at the [facility] where he was performing 20 hours of peritoneal dialysis for electrolyte clearance. Recently, he w as increased to that more sustained peritoneal dialysis prescription and his BUN which was in the 80s and 90s is now reduced down to 40 here. Unfortunately. Patient has peritonitis which would pose so me difficulty in maintaining the patient's required clearance and so a decision was made today by the patient in conjunction with our peritoneal dialysis nurse and myself for the patient is switched ove r to hemodialysis. The patient will switch over to hemodialysis after having a PermCath placed this admission and will continue on hemodialysis until this peritonitis is resolved in the outpatient sett ing. He currently denies any fevers, chills, chest pain, shortness of breath, nausea, vomiting, or diarrhe a. Objective: Vital Signs: Blood pressure 101/66, pulse 95, afebrile. General: No acute distress. Heart: Regular rate and rhythm. No murmurs, rubs, gallops. Lungs: Grossly clear to auscultation. Abdomen: Soft, nontender, nondistended. PD catheter in place with clean and dry dressing. Laboratory Data: CBC, hemoglobin 10.4, hematocrit 30.2, WBC count 15.6 with bandemia of 46. Serum c hemistry sodium 134, potassium 2.8, chloride 94, CO2 of 26, BUN 49, creatinine 11, glucose 177. Peritoneal dialysis fluid had shown WBCs 3053 with a neutrophilic shift. Blood cultures and abdomina l cultures are pending. Current Medications: Reviewed. Of note, the patient is receiving vancomycin 250 mg IV q.8h as well as ceftriaxone 2 g IV daily. Remainder medications were noted. Impression: 1.End-stage renal disease, on peritoneal dialysis. 2.Acute peritoneal dialysis peritonitis. 3.Electrolyte abnormalities including hyponatremia and hypokalemia. 4.Inability to adhere to prescribed dialytic therapy. 5.History of hypertension. 6.History of diabetes mellitus. 7.Diabetic angiopathy. Plan: Mr. Bartlett will need treatment for his peritonitis and thus we will initiate therapy consist ing of initial washout of the peritoneum with 3 rapid exchanges with 1 hour dwells and washout after that. The patient has understanding of the procedure. We will perform manual exchanges in that rega rd, then at the fourth exchange will be peritoneal fluid which has antibiotics mixed into the solutio n. Pharmacy has been kind enough to dose his last dialysis bag with 2 g of vancomycin as well as 360 mg of gentamicin. That will dwell for 5-8 hours. At that point, the patient will drain. The patient is converting over to hemodialysis and has been seen by Dr. Brizuela, who will place a cynthia neled dialysis catheter in the patient. The patient will then initiate hemodialysis here and we will continue hemodialysis in the outpatient setting as mentioned above. Please ensure patient's sepsis workup is continued and we will recommend following of all cultures. I have ordered UA for the patient to rule out any urinary tract infection. Can continue broad-spectr um antibiotics until all cultures have been received. Continue current antihypertensive regimen. Continue renal diet. We will continue to follow. Thank you for the consultation. ELVIS Voice ID: [id number] Report ID: [id number]
[2019-11-25] MEDS: ONDANSETRON 4 MG/2 ML VIAL IV SCH ×6 (03:00→23:00)
[2019-11-25 04:45] LABS: Absolute Lymphocytes (CBC) 0.8 K/uL (0.7-4.9); Basophils % 0.5 % (0-1.3); Hematocrit 27.8 % (39.6-49.0); Lymphocytes % 7.1 % (15.3-44.8); MPV 8.2 fL (7.6-11.3); RBC Red Blood Cell Count 3.18 M/uL (4.33-5.43)
[2019-11-25 05:29] LABS: Magnesium 1.6 mg/dL (1.8-2.4)
[2019-11-25] MEDS: METOPROLOL TAR 25 MG TAB PO SCH ×2 (05:30→17:25)
[2019-11-25 05:33] LABS: Potassium 2.9 mmol/L (3.5-5.1)
[2019-11-25 06:39] VITALS: BMI 33.9
[2019-11-25] MEDS: GLIMEPIRIDE 2 MG TABLET PO SCH (07:20)
[2019-11-25] MEDS: CA ACETATE 667 MG CAP PO SCH ×3 (07:20→17:24)
[2019-11-25] MEDS: ASPIRIN EC 81 MG TAB PO SCH (07:28)
[2019-11-25] MEDS: DOXAZOSIN 2 MG TAB PO SCH ×2 (07:28→21:12)
[2019-11-25] MEDS: DOCUSATE NA 100 MG CAP PO SCH ×2 (07:29→21:11)
[2019-11-25] MEDS: AMLODIPINE 10 MG TAB PO SCH (07:29)
[2019-11-25] MEDS: CALCITROL 0.25 MCG CAP PO SCH (07:29)
[2019-11-25] MEDS: ATORVASTATIN 10 MG TAB PO SCH (09:00)
[2019-11-25] MEDS: HOME MED 1 EA UNK (Linagliptin [Tradjenta] 5 MG) PO SCH (09:00)
[2019-11-25] MEDS ORDERED: VANCOMYCIN/NS 1 gm 1 GM/250 ML BAG IVPB SCH (09:00)
[2019-11-25] MEDS ORDERED: FENTANYL CITR 100 MCG/2 ML IV PRN (09:04)
--- NOTE | 2019-11-25 09:08 | P.PN ---
Subjective Date of Service: 11/25/19 Patient is doing a little bit better. Still having some abdominal pain. Patient with peritonitis. Patient's ascites fluid revealed elevated white blood cell count. Cultures pending. Patient having wash out of the peritoneal diasylate with antibiotic. Patient will get permanent dialysis catheter access to start hemodialysis later today. Appreciate Nephrology and surgery consultation Review of Systems 10-point ROS is otherwise unremarkable Physical Examination - Vital Signs Temperature: 99.9 F Blood Pressure: 101/60 Pulse: 87 Respirations: 18 Pulse Ox (%): 96 - Physical Exam General: Alert, In no apparent distress, Oriented x3 Respiratory: Clear to auscultation bilaterally, Normal air movement Cardiovascular: Regular rate/rhythm, Normal S1 S2, No murmurs Gastrointestinal: Normal bowel sounds, Soft and benign, Non-distended, No rebound, No guarding, Tenderness Musculoskeletal: No clubbing, No swelling, No tenderness Neurological: Normal strength at 5/5 x4 extr, Normal tone, Sensation intact, Cranial nerves 3-12 intact Lymphatics: No axilla or inguinal lymphadenopathy - Studies Microbiology Data (last 24 hrs): 11/24/19 01:30 Body Fluid - Abdomen Gram Stain - Final Medications List Reviewed: Yes Assessment & Plan - Problems (Diagnosis) (1) Acute peritonitis Current Visit: Yes Status: Acute (2) History of peritoneal dialysis Current Visit: Yes Status: Acute (3) Abdominal pain Current Visit: Yes Status: Acute (4) Intractable nausea and vomiting Current Visit: Yes Status: Acute (5) Gastroenteritis Current Visit: Yes Status: Acute (6) Peritoneal dialysis catheter in place Current Visit: Yes Status: Acute (7) ESRD (end stage renal disease) Current Visit: No Status: Acute (8) History of diabetes mellitus, type II Current Visit: No Status: Chronic (9) Hypertension Current Visit: No Status: Chronic Qualifiers: Hypertension type: essential hypertension Qualified Code(s): I10 - Essential (primary) hypertension - Plan Continue with current plan of care as mentioned below: 1. Will check culture from ascites 2. Continue with IV antibiotics; also antibiotic with diasylate 3. Continue with pain control 4. NPO for hemodialysis access catheter per surgery; appreciate their assistance 5. Appreciate Nephrology input 6. Serial H&H, and we will monitor CBC, BMP, LFTs and lipase along with electrolytes. 7. Monitor renal function closely 8. Will hold off on replacing electrolyte given the potassium is low because of renal disease 9. GI and DVT prophylaxis Discharge Plan: Home Plan to discharge in: 48 Hours - Advance Directives Does patient have a Living Will: No Does patient have a Durable POA for Healthcare: No - Code Status/Comfort Care Code Status: Full Code Critical Care: No Time Spent Managing PTS Care (In Minutes): 35
[2019-11-25] MEDS: CEFTRIAXONE/SWI 2gm 2 GM/20 ML SYR IV SCH (09:37)
[2019-11-25] MEDS ORDERED: NA CHLORIDE 0.9% 1,000 ML ONE (11:58)
[2019-11-25] MEDS ORDERED: HEPARIN 5000 UNIT/ML 1 ML VIAL ONE (12:09)
[2019-11-25] MEDS ORDERED: NS 0.9% VIAL 10 ML ONE (12:09)
[2019-11-25] MEDS ORDERED: BUPIVACA 0.25%/EPI 0.0005%/PF 30 ML VIAL ONE (12:10)
[2019-11-25] MEDS ORDERED: NA CHLORIDE 0.9% 50 ML ONE (12:10)
[2019-11-25] MEDS: KCL 20 MEQ/100 mL IVPB 20 MEQ/100 ML BAG IV SCH ×2 (12:10→13:00)
[2019-11-25] MEDS ORDERED: LIDOCAINE 2% MPF 5 ML VIAL ONE (12:17)
[2019-11-25] MEDS ORDERED: propofoL 200 MG/20 ML VIAL IV ONE (12:17)
[2019-11-25] MEDS ORDERED: FENTANYL CITR 100 MCG/2 ML ONE (12:17)
[2019-11-25] MEDS ORDERED: MIDAZOLAM HCL 2 MG/2 ML INJ ONE (12:17)
--- NOTE | 2019-11-25 13:10 | P.OP ---
Preoperative diagnosis: End Stage Renal Disease Postoperative diagnosis: End Stage Renal Disease Primary procedure: Placement of RIGHT internal Jugular Tunnelled HD catheter Secondary procedure: ultrasound / Flouroscopy and microintroducer used Anesthesia: MAC + Local Estimated blood loss: <10cc Specimen: None Findings: Dark Nonpulsatile blood, Complications: None Transferred to: Recovery Room Condition: Good
--- NOTE | 2019-11-25 13:39 | RAD REPORT ---
EXAM DESCRIPTION: RAD - Fluoroscopy <1 Hour - 11/25/2019 1:26 pm CLINICAL HISTORY: Device placement central venous catheter placement FINDINGS: A central venous catheter was placed into the superior vena cava. 3 fluoroscopic spot imag es are submitted. The examination was performed by Dr. Brizuela Fluoroscopy time 0.2 minutes
--- NOTE | 2019-11-25 14:20 | OP ---
Date of Procedure: 11/25/2019 Surgeon: Junior Brizuela MD, Preoperative Diagnosis: End-stage renal disease. Postoperative Diagnosis: End-stage renal disease. Procedure: Placement of a right internal jugular tunnel hemodialysis catheter using ultrasound and f luoroscopy with micro introducer set. Anesthesia: MAC plus local with 0.25% Marcaine with epinephrine. Estimated Blood Loss: 10 mL. Specimens: None. Findings: Dark nonpulsatile blood return. Complications: None. Condition: Transferred to recovery room in good condition. Procedure In Detail: After informed consent was obtained, patient was brought to the operating room and prepped and draped in the usual sterile fashion. After adequate anesthesia was achieved, the pat ient was placed in steep Trendelenburg position. Using ultrasound guidance, I cannulated the area of the right internal jugular vein, on first attempt dark red nonpulsatile blood was returned and the m icrowire was advanced through the puncture site. At this point verification was performed using fluo roscopy to ensure that the microwire was in the appropriate internal jugular vein and went to the con fluence of the SVC, which was verified by fluoroscopy. At this point, the small chuck incision was ma de over the insertion site and the microintroducer sheath was then introduced. Patient remained in s teep Trendelenburg throughout the procedure. The microwire was then removed. The standard wire was then placed. Dark nonpulsatile red blood was returned and the standard wire was then verified with f luoroscopy once again. After this was performed, the microintroducer sheath was completely removed a nd a track was formed on the chest wall over the clavicle. After appropriately anesthetizing the tra ck, a chuck incision was made on the chest wall and the tunneling device was used to pull the catheter up in the appropriate position. This was a 19 cm tunneled hemodialysis HemoSplit catheter, which wa s placed alongside. Sequential dilatation was then performed using Seldinger technique over the wire . The introducer sheath was placed and once again dark red nonpulsatile blood was returned and the c atheter was advanced through this and the introducer sheath completely removed. All skin incisions w ere then cleansed. The catheter was then secured to the chest wall. All ports easily flushed and we re packed with saline followed by heparinized saline solution and a chest x-ray confirmed position to be in the SVC confluence. At this point the sterile dressing was placed over the top and the patien t sent to the PACU for followup chest x-ray. Patient tolerated the procedure well without evidence o f complication, transferred to PACU in good condition. All counts were correct at the end of the jamie e. MARIBEL/EVITA Voice ID: [id number] Report ID: [id number]
--- NOTE | 2019-11-25 14:23 | RAD REPORT ---
EXAM DESCRIPTION: Tejal Single View11/25/2019 2:05 pm CLINICAL HISTORY: Device placement/central venous catheter placement COMPARISON: 2018 FINDINGS: Tip of a central venous catheter lies within the superior vena cava. A pneumothorax is not present. Lungs appear clear of acute infiltrate IMPRESSION: Central venous catheter with its tip in the superior vena cava
[2019-11-25] MEDS ORDERED: D50W 25 GM/50 ML SYRINGE/VIAL IV PRN (17:20)
[2019-11-25] MEDS ORDERED: GLUCAGON 1 MG/VIAL IM PRN (17:20)
[2019-11-25] MEDS: INSULIN -REGULAR HUMAN 50 UNIT/0.5 ML ML SQ SCH (21:13)
[2019-11-26] MEDS: ONDANSETRON 4 MG/2 ML VIAL IV SCH ×4 (03:00→15:00)
--- NOTE | 2019-11-26 03:21 | P.PN ---
Subjective Date of Service: 11/26/19 Patient continues to improve. No new changes. Pain is better controlled. Continue with IV antibiotic therapy. Continue with antibiotics through diasylate Review of Systems 10-point ROS is otherwise unremarkable Physical Examination - Vital Signs Temperature: 98.5 F Blood Pressure: 120/71 Pulse: 85 Respirations: 15 Pulse Ox (%): 96 - Physical Exam General: Alert, In no apparent distress, Oriented x3 Respiratory: Clear to auscultation bilaterally, Normal air movement Cardiovascular: Regular rate/rhythm, Normal S1 S2, No murmurs Gastrointestinal: Normal bowel sounds, Soft and benign, Non-distended, No tenderness Musculoskeletal: No clubbing, No swelling, No tenderness Neurological: Normal tone, Sensation intact, Cranial nerves 3-12 intact - Studies Microbiology Data (last 24 hrs): 11/24/19 01:30 Body Fluid - Abdomen Gram Stain - Final Medications List Reviewed: Yes Assessment & Plan - Problems (Diagnosis) (1) Acute peritonitis Current Visit: Yes Status: Acute (2) History of peritoneal dialysis Current Visit: Yes Status: Acute (3) Abdominal pain Current Visit: Yes Status: Acute (4) Intractable nausea and vomiting Current Visit: Yes Status: Acute (5) Gastroenteritis Current Visit: Yes Status: Acute (6) Peritoneal dialysis catheter in place Current Visit: Yes Status: Acute (7) ESRD (end stage renal disease) Current Visit: No Status: Acute (8) History of diabetes mellitus, type II Current Visit: No Status: Chronic (9) Hypertension Current Visit: No Status: Chronic Qualifiers: Hypertension type: essential hypertension Qualified Code(s): I10 - Essential (primary) hypertension - Plan Continue with current plan of care as mentioned below: 1. Will check culture from ascites 2. Continue with IV antibiotics; also antibiotic with diasylate 3. Continue with pain control 4. NPO for hemodialysis access catheter per surgery; appreciate their assistance 5. Appreciate Nephrology input 6. Serial H&H, and we will monitor CBC, BMP, LFTs and lipase along with electrolytes. 7. Monitor renal function closely 8. Will hold off on replacing electrolyte given the potassium is low because of renal disease 9. GI and DVT prophylaxis - Advance Directives Does patient have a Living Will: No Does patient have a Durable POA for Healthcare: No - Code Status/Comfort Care Code Status: Full Code
[2019-11-26 04:33] LABS: Absolute Lymphocytes (CBC) 1.4 K/uL (0.7-4.9); Basophils % 0.5 % (0-1.3); Hematocrit 23.8 % (39.6-49.0); Lymphocytes % 16.5 % (15.3-44.8); MPV 8.6 fL (7.6-11.3); RBC Red Blood Cell Count 2.76 M/uL (4.33-5.43)
[2019-11-26 05:04] LABS: Magnesium 1.7 mg/dL (1.8-2.4)
[2019-11-26] MEDS: METOPROLOL TAR 25 MG TAB PO SCH (05:56)
[2019-11-26] MEDS: INSULIN -REGULAR HUMAN 50 UNIT/0.5 ML ML SQ SCH ×3 (07:30→16:47)
[2019-11-26] MEDS: GLIMEPIRIDE 2 MG TABLET PO SCH (08:36)
[2019-11-26] MEDS: DOCUSATE NA 100 MG CAP PO SCH (08:36)
[2019-11-26] MEDS: CALCITROL 0.25 MCG CAP PO SCH (08:36)
[2019-11-26] MEDS: DOXAZOSIN 2 MG TAB PO SCH (08:36)
[2019-11-26] MEDS: ATORVASTATIN 10 MG TAB PO SCH (08:36)
[2019-11-26] MEDS: ASPIRIN EC 81 MG TAB PO SCH (08:36)
[2019-11-26] MEDS: CA ACETATE 667 MG CAP PO SCH ×3 (08:36→16:48)
[2019-11-26] MEDS: AMLODIPINE 10 MG TAB PO SCH (08:37)
[2019-11-26] MEDS: CEFTRIAXONE/SWI 2gm 2 GM/20 ML SYR IV SCH (08:37)
[2019-11-26] MEDS: HOME MED 1 EA UNK (Linagliptin [Tradjenta] 5 MG) PO SCH (09:00)
[2019-11-26] MEDS ORDERED: EPOETIN ALFA 10,000 UNIT/ML VIAL IV SCH (09:00)
[2019-11-26] MEDS ORDERED: VANCOMYCIN/NS 1 gm 1 GM/250 ML BAG IVPB SCH (11:00)
[2019-11-26 12:23] VITALS: O2SAT 97
--- NOTE | 2019-11-26 13:38 | PN ---
Date of Progress Note: 11/26/2019 Subjective: Patient was seen and examined at bedside. He is doing much better. His PD exchanges rivera ve been going well and his peritoneal fluid seems to be improving in terms of the clarity. He feels much better. No fevers noted. No pain. Physical Examination: General: He appears in no acute distress. Lungs: Clear to auscultation. PD catheter with no evidence of any tenderness or pain. Extremities: Showed mild edema. Laboratory Data: Has been reviewed. Hemoglobin of 8.1, hematocrit of 23.8, and platelet count of 16 0. BMP results have been reviewed. Potassium was at 3. Other electrolytes are consistent with ESRD . Culture reports are showing evidence of Enterobacter cloacae which is pansensitive at this time. Current Medications: Reviewed. Impression: End-stage renal disease, on peritoneal dialysis complicated by peritonitis from Enteroba cter cloacae infection. Patient has already received a loading dose of gentamicin and vancomycin int raperitoneally early and he seems to be doing okay at this time. The plan is to switch him over to h emodialysis, which he has had a catheter placed and he will get hemodialysis today and continue with intraperitoneal antibiotic dosing with ceftazidime 2 g with 2 L back with 6 hour dwell time for 2 wee ks. I have discussed this at length with the peritoneal dialysis nurse and he can be discharged afte r hemodialysis treatment today. Regarding his hypokalemia, we will dialyze him with a whole 4K bath and we will encourage p.o. intake of potassium at this time. Continue all other medications and plan of care. He is okay to be discharged post HD today. VV/MODL Voice ID: [id number] Report ID: [id number]
[2019-11-26 14:41] VITALS: BP 121/58; TEMP 97.6
[2019-11-26] MEDS ORDERED: METOPROLOL TAR 50 MG TAB PO SCH (18:00)
--- NOTE | 2019-11-30 06:19 | P.DS ---
Discharge Date: 11/26/19 Disposition: ROUTINE DISCHARGE Reason for Admission: Abdominal pain; nausea and vomiting; diarrhea Consultations: Nephrology - Problems (1) Acute peritonitis Status: Acute (2) History of peritoneal dialysis Status: Acute (3) Abdominal pain Status: Acute (4) Intractable nausea and vomiting Status: Acute (5) Gastroenteritis Status: Acute (6) Peritoneal dialysis catheter in place Status: Acute (7) ESRD (end stage renal disease) Status: Acute (8) History of diabetes mellitus, type II Status: Chronic (9) Hypertension Status: Chronic Qualifiers: Hypertension type: essential hypertension Qualified Code(s): I10 - Essential (primary) hypertension Brief History of Present Illness: Patient is a 43-year-old gentleman with a history of end-stage renal disease on peritoneal dialysis, who presents to the hospital with abdominal pain along with nausea and vomiting. Patient had a peritoneal dialysis catheter placed in March. This was done in [facility] by the general surgeon. Patient has not been having any problems until he started having abdominal pain along with nausea and vomiting. Patient came to the emergency room because the nausea vomiting was not improving. In the emergency room patient was found have a leukocytosis with bandemia. Peritoneal fluid was accessed and sent to the laboratory for evaluation of peritonitis. Cultures have been obtained as well. Patient been started on IV antibiotic therapy. Nephrology has been consulted. Clinically patient does not appear to be having that much pain on exam. There is no rebound regarding. Will discuss with Nephrology regarding plan of care. Hospital Course: Patient doing well no new complaints. Patient had hemodialysis catheter placed. Patient also had IV antibiotics given through intravenously as well as through the diasylate. Patient is doing well. At this time patient is stable for discharge and will need continued antibiotic therapy. Return to the ER if symptoms worsen. Vital Signs/Physical Exam: Temp Pulse Resp BP Pulse Ox 97.6 F 83 20 121/58 L 97 11/26/19 12:00 11/26/19 12:00 11/26/19 12:00 11/26/19 12:00 11/26/19 12:00 General: Alert, In no apparent distress, Oriented x3 Laboratory Data at Discharge: WBC 8.3 K/uL (4.3-10.9) D 11/26/19 03:57 Hgb 8.1 g/dL (13.6-17.9) L 11/26/19 03:57 Hct 23.8 % (39.6-49.0) L 11/26/19 03:57 Plt Count 160 K/uL (152-406) 11/26/19 03:57 Sodium 133 mmol/L (136-145) L 11/26/19 03:57 Potassium 3.0 mmol/L (3.5-5.1) L 11/26/19 03:57 BUN 62 mg/dL (7-18) H 11/26/19 03:57 Creatinine 12.40 mg/dL (0.55-1.3) H* 11/26/19 03:57 Glucose 135 mg/dL (74-106) H 11/26/19 03:57 Phosphorus 5.2 mg/dL (2.5-4.9) H 11/24/19 17:54 Magnesium 1.7 mg/dL (1.8-2.4) L 11/26/19 03:57 Total Bilirubin 0.5 mg/dL (0.2-1.0) 11/24/19 17:54 AST 19 U/L (15-37) 11/24/19 17:54 ALT 26 U/L (12-78) 11/24/19 17:54 Alkaline Phosphatase 131 U/L (45-117) H 11/24/19 17:54 Lipase 157 U/L (73-393) 11/24/19 01:08 Home Medications: Amlodipine [Norvasc*] 10 mg PO DAILY 11/24/19 Atorvastatin Calcium [Lipitor*] 10 mg PO DAILY 11/24/19 Furosemide 40 mg PO BID 11/24/19 Glimepiride [Amaryl] 4 mg PO DAILY 11/24/19 Linagliptin [Tradjenta] 5 mg PO DAILY 11/24/19 Liraglutide [Victoza 2-Mg] 1.8 mg SQ DAILY 11/24/19 Metoprolol Succinate 50 mg PO BID 11/24/19 Diet: Renal Activity: Fall precautions Followup: Alex Garibay DO [ACTIVE - CAN ADMIT] - (Call to make an appointment. ) Junior Brizuela MD [ACTIVE - CAN ADMIT] - 1 Week (call to make an appointment. ) Time spent managing pt's care (in minutes): 25
== END 2019-11-26 18:31 | disposition home or self-care (01) | DRG 314 ==
LOC: ER 00:36 → ERHOLD 02:53 → 2ND 03:52 → OBSVTOIN 10:07
PROVIDERS: ADMIT Hospitalist; ATTEND Hospitalist
PROC: 02HV33Z Insertion of Infusion Device into Superior Vena Cava, Percutaneous Approach (ICD-10-PCS; 2019-11-25)
PROC: 0JH60XZ Insertion of Tunneled Vascular Access Device into Chest Subcutaneous Tissue and Fascia, Open Approach (ICD-10-PCS; principal; 2019-11-25 12:45)
DX: T82.7XXA Infection and inflammatory reaction due to other cardiac and vascular devices, implants and grafts, initial encounter (principal); K65.9 Peritonitis, unspecified; N18.6 End stage renal disease; I12.0 Hypertensive chronic kidney disease with stage 5 chronic kidney disease or end stage renal disease; E87.1 Hypo-osmolality and hyponatremia; K52.9 Noninfective gastroenteritis and colitis, unspecified; E11.22 Type 2 diabetes mellitus with diabetic chronic kidney disease; Z96.89 Presence of other specified functional implants; Z99.2 Dependence on renal dialysis; Z87.891 Personal history of nicotine dependence; E87.6 Hypokalemia; E11.51 Type 2 diabetes mellitus with diabetic peripheral angiopathy without gangrene; B96.89 Other specified bacterial agents as the cause of diseases classified elsewhere; Z79.84 Long term (current) use of oral hypoglycemic drugs; Z79.899 Other long term (current) drug therapy
CPT/HCPCS: 36415; 71045; 76000; 80048; 80053; 80076; 80202; 82947; 83036; 83605; 83690; 83735; 84100; 84132; 84145; 85025; 87040; 87070; 87077; 87186; 89050; 99285; C1752; G0378; J0696; J1580; J1644; J2250; J2405; J2704; J3010; J3370; J7030; Q5105

== ENCOUNTER 2020-09-06 08:54 | Inpatient (IN) | payer BC, OTHER, SELFPAY ==
--- OUTSIDE RECORDS SUMMARY | 2020-09-06 08:58 | XMS REPORT | Continuity of Care Document ---
:1975 Author Organization [facility] t Address [address] [place] [address] Care Team Providers Name Role Phone Matt Davis DO Primary Care Physician Susanna GOSS Attending Clinician Delmy Neumann RN Attending Clinician Dwain EMERY Attending Clinician Unavailable Amairani EMERY Attending Clinician Unavailable Skinny PHAN Attending Clinician Unavailable Salvador Wharton MD Attending Clinician Nel BLANKENSHIP Attending Clinician Jamey Vergara MD Attending Clinician Neil GOSS Attending Clinician SUSANNA Admitting Clinician Unavailable Payers Payer Name Policy Type Policy Effective Date Expiration Date Sour ce Number MEDICAREMEDICARE PART [id number] 2019 John Booth AND 00:00:00 Tenriism [id number] 2019- OSMANY HuertaMedimarco a AETNAAETMIKE MEDICARE [id number] 2020 [place] on [id number] 00:00:00 Met crawford /07/2019-Cheri esquivel Problems Condition Condition Condition Status Onset Resolution Last Treating Co mments Source Name Details Category Date Date Treatment Clinician Date ESRD (end ESRD (end Disease Active Overview: Kendrick stage stage 9- Added Methodi renal renal 00:00: automatic st disease) disease) 00 ally from request for surgery [id number] Anemia of Anemia of Disease Active Surinder galindo chronic chronic 03-08 Methodi disease disease 00:00: st 00 Type 2 Type 2 Disease Active Kendrick diabetes diabetes 03-08 Method i mellitus mellitus 00:00: st 00 Obesity Obesity Disease Active Kendrick (BMI (BMI 03-27 Methodi 30-39.9) 30-39.9) 00:00: st 00 Essential Essential Disease Active Surinder galindo hypertensi hypertensi 07-16 Me thodi on on 00:00: st 00 Hypertrigl Hypertrigl Disease Active [place] yceridemia yceridemia 07-16 La thodi 00:00: st 00 Allergies, Adverse Reactions, Alerts This patient has no known allergies or adverse reactions. Family History Family Member Diagnosis Comments Start Date Stop Date Source Natural father Diabetes [facility] Natural father Multiple myeloma [facility] Tenriism Natural mother Diabetes [facility] Natural mother Hypertension Kendrick Tenriism Social History Social Habit Start Date Stop Date Quantity Comments Source History of tobacco Current smoker John john Tenriism use Sex Assigned At Kendrick M ethodist Cigarettes smoked 2020-03-17 2020-03-17 Kendrick Tenriism current (pack per 00:00:00 00:00:00 day) - Reported Cigarette 2020-03-17 2020-03-17 Kendrick Method ist pack-years 00:00:00 00:00:00 Tobacco use and 2020-03-17 2020-03-17 Former user Kendrick Tenriism exposure 00:00:00 00:00:00 Alcohol intake 2020-03-17 2020-03-17 Ex-drinker [facility] [place] 00:00:00 00:00:00 (finding) Smoking Status Start Date Stop Date Source Former smoker 2020-03-17 00:00:00 2020-03-17 00:00:00 Kuo Tenriism Medications Ordered Filled Start Stop Current Ordering Indication Dosage Frequency Signature Comments Components Source Medication Medication Date Date Medication? Clinician (SIG) Name Name aspirin 81 2019-07 Yes Chew. [place] mg chewable 0-20 Methodi tablet 10:39: st 55 liraglutide 2019-07 Yes 1.2mg QD Inject 1.2 Kuo (VICTOZA) 0-20 mg under Method i 0.6 mg/0.1 10:39: the skin st mL (18 mg/3 55 daily. mL) pen injector linaGLIPtin 2019-07 Yes 5mg QD Take 5 mg [place] (TRADJENTA) 0-20 by mouth Meth carmen 5 mg tablet 10:39: daily. st 55 loratadine 2019-07 Yes 10mg QD Take 10 mg [place] (CLARITIN) 0-20 by mouth Metho di 10 mg 10:39: daily. st tablet 55 cholecalcif 2019-07 Yes Take by Surinder galindo chadd, 0-20 mouth. Methodi vitamin D3, 10:39: st (Vitamin 55 D3) 125 mcg (5,000 unit) tablet insulin 2019-07 Yes Inject Kuo glargine,hu 0-20 under the Met marycarmen sosarec.anlog 10:39: skin. st (TOUJEO MAX 55 U-300 SOLOSTAR SUBQ) traMADoL 2020- No acute pain 50mg Q.5D Take 1 Kuo (ULTRAM) 50 03-15 tablet (50 M ethodi mg tablet 00:00: 23:59 mg total) st 00 :00 by mouth 2 (two) times a day as needed for moderate pain for up to 3 days .acute pain. pioglitazon 2020- No 15mg QD Take 15 mg Kuo e (ACTOS) 03-10 09-03 by mouth Metho di 15 MG 11:59: 00:[address] tablet 24 :00 glimepiride Yes 4mg Take 4 mg [place] (AMARYL) 4 7-13 by mouth. Meth carmen MG tablet 00:00: st 00 calcium Yes 667mg Take 667 [place] acetate,joshua 1-22 mg by Methodi sphat bind, 00:00: mouth. st (PHOSLO) 00 667 mg capsule Pen [place] Pen [place] 2018-07 Yes Todd [address] 09/20" 316" 0-02 Davis needle [facility] - 00:00: with Memoria 00 Victoza l Outpati ent Clinics doxazosin Yes TAKE 1 [place] (CARDURA) 2 8-26 TABLET BY Met hodi MG tablet 00:00: MOUTH st 00 TWICE A DAY atorvastati Yes 10mg Take 10 mg Kuo n (LIPITOR) 8-26 by mouth. Met hodi 10 mg 00:00: st tablet 00 furosemide Yes TAKE 1 [place] (LASIX) 40 7-22 TABLET BY Meth carmen mg tablet 00:00: MOUTH st 00 TWICE A DAY metoprolol Yes TAKE 1 [place] tartrate 7-22 TABLET BY Method i (LOPRESSOR) 00:00: MOUTH st 50 mg 00 TWICE A tablet DAY amLODIPine Yes 10mg Take 10 mg [place] (NORVASC) 7- by mouth. Metho di 10 mg 00:00: st tablet 00 Victoza Victoza Yes Todd inject 0.[address] Davis mg/day x 1 [facility] - week then Memoria 1.2 l mg/day. [facility] max 1.8 ent mg/day Clinics Calcium Calcium Yes Todd TAKE BY [facility] Acetate Acetate Davis MOUTH 1 [facility] - (Phos (Phos CAPSULE 3 Memoria Binder) Binder) TIMES A l DAY WITH [facility] FOOD AND 1 ent CAPSUE 2 Clinics TIMES WITH SNACKS Claritin Claritin Yes Todd [address] [facility] ent Clinics Doxazosin Doxazosin Yes Todd take [address] Mesylate Mesylate Davis tablet by L ukes - mouth Memoria twice a l day [facility] ent [facility] Furosemide Furosemide Yes Todd take [address] [facility] Davis tablet by [facility] - mouth Memoria twice a l day [facility] ent Clinics Tougeovanio Tougeovanio Yes Todd INJECT SUB [facility] SoloStar SoloStar Davis 38 UNITS Susanna kes - DAILY Memoria l [facility] ent Clinics Glimepiride Glimepiride Yes Todd take [address] [facility] Davis tablet by [facility] - mouth Memoria every day l [facility] ent Clinics Atorvastati Atorvastati Yes Todd TAKE [address] [facility] n Calcium n Calcium Davis TABLET BY [facility] - MOUTH Memoria EVERY DAY l [facility] ent Clinics Vitamin D-3 Vitamin D-3 Yes Todd as [facility] Davis directed [facility] - Memoria l [facility] ent [facility] Amlodipine Amlodipine Yes Todd take [address] [facility] [facility] Besylate Besylate Davis tablet by L ukes - mouth Memoria every day l [facility] ent Clinics Tradjenta Tradjenta Yes Todd TAKE [address] Davis TABLET BY [facility] - MOUTH Memoria EVERY DAY l ONCE A DAY [facility] 30 ent Clinics Metoprolol Metoprolol Yes Todd take [address] [facility] Tartrate Tartrate Davis tablet by L ukes - mouth Memoria twice a l day [facility] ent [facility] Atorvastati Atorvastati Yes Todd take [address] [facility] n Calcium n Calcium Davis tablet by [facility]ukes - mouth Memoria every day l [facility] ent Clinics Vital Signs Vital Name Observation Time Observation Value Comments Source Oxygen saturation in 2020-05-24 08:18:00 98 /min Ayaan Velarde Arterial blood by Pulse oximetry Systolic blood 2020-05-24 08:18:00 156 mm[Hg] Michaelto n Tenriism pressure Diastolic blood 2020-05-24 08:18:00 85 mm[Hg] Ronan on Tenriism pressure Heart rate 2020-05-24 08:18:00 75 /min Ayaan Velarde Body temperature 2020-05-24 08:18:00 37.06 Aparna Michael Velarde Body height 2020-05-24 08:18:00 180.3 cm Ayaan Velarde Body weight 2020-05-24 08:18:00 125.646 kg Ayaan Velarde BMI 2020-05-24 08:18:00 38.63 kg/m2 Ayaan Velarde Respiratory rate 2020-03-15 15:22:00 20 /min Michael Velarde Procedures Procedure Date / Time Performing Clinician Source Performed US DUPLEX HEMODIALYSIS AVG 2020-04-14 09:40:00 Jerald Mullins AVF ACCESS POC GLUCOSE 2020-03-15 14:23:00 Jerald Mullins Meth odist POC GLUCOSE 2020-03-15 13:09:00 Jerald Mullins MT AN ELECTIVE 2020-03-15 12:20:45 Jael Davis odist SUPRAGLOTTIC AIRWAY POC PANEL 2020-03-15 10:08:00 Jerald Mullins COMPREHENSIVE METABOLIC 2020-03-15 09:59:00 Jerald Mullins PANEL ESTIMATED GFR 2020-03-15 09:59:00 Jerald Mullins XR CHEST 2 VW 2020-03-10 12:53:13 Jerald Mullins ECG 12-LEAD 2020-03-10 12:24:04 Jerald Mullins Meth odist COVID-19 QUALITATIVE PCR 2020-03-10 11:36:00 SusannaJeraldelodia galindo Tenriism PARTIAL THROMBOPLASTIN 2020-03-10 11:36:00 SusannaJerald Ronan on Tenriism TIME (PTT) PROTHROMBIN TIME WITH INR 2020-03-10 11:36:00 SusannaJerald alvaro Tenriism HC COMPLETE BLD COUNT 2020-03-10 11:36:00 Jerald Mullins Tenriism W/AUTO DIFF HEMOGLOBIN A1C 2020-03-10 11:36:00 Jerald Mullins Meth odist TYPE AND SCREEN 2020-03-10 11:36:00 SusannaJerald Meth odist US VEIN MAPPING UPPER 2020-03-08 09:28:00 Mundo Vergarato n Tenriism EXTREMITY BILATERAL Jesikamelissa Plan of Care Planned Activity Planned Date Details Comments Source Future Scheduled 2020-02-06 INFLUENZA VACCINE [place] Tenriism Test 00:00:00 [code = INFLUENZA VACCINE] Future Scheduled 1992 Hepatitis C Kuo Met hodist Test 00:00:00 screening (procedure) [code = 378513384] Future Scheduled 1990 COVID-19 VACCINE (1 [place] Tenriism Test 00:00:00 of 2) [code = COVID-19 VACCINE (1 of 2)] Future Scheduled 1984 DIABETES: RETINAL [place] Tenriism Test 00:00:00 EYE EXAM [code = DIABETES: RETINAL EYE EXAM] Future Scheduled 1984 DIABETIC FOOT EXAM [place] Tenriism Test 00:00:00 [code = DIABETIC FOOT EXAM] Encounters Start End Encounter Admission Attending Care Care Encounter Source Date/Time Date/Time Type Type Clinicians Facility Department ID 2020-06-16 2020-06-16 [id number] 00:00:00 00:00:00 Gabriel Hubbard ent Clinics 2020-05-24 2020-05-24 Outpatient SUSANNAJERALD [facility] [id number] Kendrick 00:00:00 00:00:[address] 2020-04-26 2020-04-26 Outpatient SUSANNAJERALD [facility] [id number] Kendrick 00:00:00 00:00:[address] 2020-04-14 2020-04-14 Outpatient JERALD MULLINS [facility] [id number] Kendrick 00:00:00 00:00:[address] 2020-04-14 2020-04-14 Outpatient [facility] [id number] Kendrick 00:00:00 00:00:[address] 2020-03-17 2020-03-17 [facility] [id number] 14:10:00 14:10:00 t [employer] [facility] ent [facility] 2020-03-15 2020-03-15 Outpatient JERALD MULLINS [facility] [id number] Kendrick 00:00:00 00:00:00 751 Method i 2020-03-10 2020-03-10 Outpatient JERALD MULLINS [facility] [id number] Kendrick 00:00:00 00:00:00 154 Method i 2020-03-10 2020-03-10 Outpatient JERALD MULLINS [facility] [id number] Kendrick 00:00:00 00:00:00 038 Method i 2020-03-08 2020-03-08 Outpatient SACHA [facility] [id number] Kendrick 00:00:00 00:00:00 MUNDO 843 Method i 2020-03-08 2020-03-08 Outpatient SACHA [facility] [id number] Kendrick 00:00:00 00:00:00 MUNDO 916 Method i 2020-02-22 2020-02-22 [facility] [id number] [facility] 16:58:00 16:58:00 [employer] [facility] ent [facility] 2020-02-09 2020-02-09 Office [facility] [id number] 15:18:54 16:25:44 Visit Myriam Addison [id number] Lizet [id number] Wisam [id number] [address] 2020-01-20 2020-01-20 [facility] [id number] 15:47:00 15:47:00 [employer] [facility] ent Clinics 2019-12-16 2019-12-16 [facility] [id number] 15:00:00 15:00:00 t [place] [employer] Lu[employer]car s - Drive [facility] Medicine Outpati ent Clinics 2019-12-16 2019-12-16 [facility] [id number] 14:45:00 14:45:00 t [place] [employer] s - Drive [facility] l Medicine Outpati ent Clinics 2019-11-26 2019-11-26 [facility] [id number] 13:57:00 13:57:00 t [facility] [place] [employer] s - Road [facility] l Medicine Outpati ent Clinics 2019-09-15 2019-09-15 [facility] [id number] 15:15:00 15:15:00 t [place] - [employer] [facility] Medicine Outpati ent Clinics 2019-09-14 2019-09-14 [facility] [id number] 07:56:00 07:56:00 t [place] [employer] s - Drive [facility] Medicine Outpati ent Clinics 2019-09-10 2019-09-10 [facility] [id number] 10:00:00 10:00:00 t [facility] ent [facility] 2019-09-07 2019-09-07 [facility] [id number] 09:39:00 09:39:00 t [place] [employer] s - Drive [facility] Medicine Outpati ent Clinics 2019-08-13 2019-08-13 [facility] [id number] 14:49:00 14:49:00 t [place] [employer] s - Drive [facility] Medicine Outpati ent Clinics 2019-06-25 2019-06-25 [facility] [id number] 11:04:00 11:04:[address] [facility] Medicine Outpati ent Clinics 2019-06-15 2019-06-15 [facility] [id number] 10:00:00 10:00:00 t [facility] Outpati ent Clinics 2019-06-10 2019-06-10 [facility] [id number] 08:33:00 08:33:00 t [facility] ent Clinics 2019-06-08 2019-06-08 [facility] [id number] 13:51:00 13:51:00 [facility] Outpati ent Clinics 2019-04-08 2019-04-08 [facility] [id number] 16:33:00 16:33:00 [facility] Clinics 2019-03-13 2019-03-13 [facility] [id number] 08:45:00 08:45:00 [facility] ent [facility] Results Test Description Test Time Test Comments Results Result Comments Source POC glucose 2020-03-15 14:25:58 Test Item Value Reference Range Interpretation Comme [facility] POC glucose (test code = 20906-0) 159 mg/dL 65-99 H Unattended Ground Sensor Specialist Name: Addy Ramos ID: [id number] Lab Interpretation (test code = Abnormal 36708-8) [facility] 12:20:45Jael Davis CRNA 03/15/2020 12:21 PMAirwayPerformed by: Jael Davis CRNAAuthorized by: Emory Wharton MD Location: ORUrgency: ElectiveDifficult Airway: No Anesthesiologist: Emory Wharton, KRISTYesident/YAHIR/AA: Jael Davis CRNAPerformed by: resident/YAHIR/AAPreoxygenated with 100% O2: Yes C-spine Precautions Maintained Throughout: Yes Mask Ventilation: Easy maskFinal Airway Type: Supraglottic airwayFinal LMA: I-GelLMA Size: 5Number of Attempts at Approach: [address] [place], [place] [address]2020-09-08 11:37:19 Test Item Value Reference Range Interpretation Comments POC sodium (test code = 140 mmol/L 141-097 1980-0) POC potassium (test 4.8 mmol/L 3.5-5 code = 6298-4) POC glucose (test code 204 mg/dL 65-99 H Opera roman Name: Lucio = [id number]) Justin ID : [id number] POC hemoglobin (test 11.6 g/dL 14-18 L code = 718-7) POC hematocrit (test 34 % 41-51 L code = 4544-3) Lab Interpretation Abnormal (test code = 73909-9) Kendrick [facility]Com[facility] metabolic [id number] 10:35:50 Test Item Value Reference Range Interpretation Comments Sodium (test code = 139 See_Comment [Automa kamila message] 295-2) The system [employer] generated this result transmit kamila reference range : 135 - 148 mEq/L. Th e reference range was not used to interpret this result as normal/abnormal . Potassium (test code = 4.9 See_Comment [Aut omated message] 2613-3) The system [employer] generated this result transmit kmaila reference range : 3.5 - 5.0 mEq/L. Th e reference range was not used to interpret this result as normal/abnormal . Chloride (test code = 102 See_Comment [Auto mated message] 0) The system [employer] generated this result transmit kamila reference range : 98 - 112 mEq/L. Th e reference range was not used to interpret this result as normal/abnormal . CO2 (test code = 23 See_Comment L [Automated message] 2028-03) The system [employer] generated this result transmit kamila reference range : 24 - 31 mEq/L. The reference range was not used to interpret this result as normal/abnormal . Anion gap (test code = 14@ANIO See_Comment [Aut omated message] 14647-9) The system [employer] generated this result transmit kamila reference range : 7 - 15 mEq/L. The reference range was not used to interpret this result as normal/abnormal . BUN (test code = 50 mg/dL 6-20 H 3094-0) Creatinine (test code = 6.20 mg/dL 0.7-1.2 H 2160-0) Glucose (test code = 221 mg/dL 65-99 H 2345-7) Calcium (test code = 9.3 mg/dL 8.3-10.2 16501-8) Protein (test code = 7.6 g/dL 6.3-8.3 2885-2) Albumin (test code = 3.8 g/dL 3.5-5 1751-7) A/G ratio (test code = 1.0 0.7-3.8 1759-0) Alkaline phosphatase 151 U/L 40-129 H (test code = 6768-6) AST (test code = 28 U/L 1050 1920-8) ALT (test code = 43 U/L 50 1742-6) Total bilirubin (test 0.3 mg/dL 0.2-1.2 code = 1974-) Lab Interpretation Abnormal (test code = 24866-9) Kuo MethodistEstimated [id number] 10:35:50 Test Item Value Reference Range Interpretation Comments Estimated GFR (test 10 mL/min/1.73 m2 A Caterg ory Units code = 5488) InterpretationG 1 >=90 Lyric l or highG2 60-89 Mildly decrease dG3a 45-59 Mil dly to moderately decr qacqbS8h 30-44 Moderately to s everely decreasedG4 15-29 Severe ly decreasedG5 <15 Kidney vidhya lureThe eGFR was calcul ated using the Chron ic Kidney Disease Epidemiology Collaboration ( CKD-EPI) equation. Interpretation is based on recommendati ons of the National Ki dney [facility]-Kidn ey Disease Outcome s Quality Initiat [place] (NKF-KDOQI) pub lished in 2013. Lab Interpretation Abnormal (test code = 11131-2) Ayaan MethodistEC 12 [id number] 15:24:06 Test Item Value Reference Range Interpretation Comments Ventricular rate (test 66 code = 253) Atrial rate (test code 66 = 255) MT interval (test code 146 = 266) QRSD interval (test 88 code = 260) QT interval (test code 402 = 264) QTC interval (test code 421 = 265) P axis 1 (test code = 58 267) QRS axis 1 (test code = -6 268) T wave axis (test code -45 = 270) EKG impression (test Normal sinus code = 273) rhythm-Voltage criteria for left ventricular hypertrophy-Cannot rule out Septal infarct , age undetermined-T wave abnormality, consider inferior ischemia-Abnormal ECG-No previous ECGs available-Electronical ly Signed By Alfie Umanzor MD ([id number]) on 03/11/2020 3:24:03 PM Ayaan SorianoistCOVID-19 qualitative [id number] 23:17:13 Test Item Value Reference Range Interpretation Comments Interpretation (test Negative results do code = 1099081) not preclude 2019-nCoV infection and should not be used as the sole basis for treatment or other patient management decisions. Negative results must be combined with clinical observations, patient history, and epidemiological information. COVID-19 qualitative Not-Detected Not-Detected PCR result (test code = 62340-5) COVID-19 qualitative See link below for C ase Number: PCR (test code = PDF Lab Report [id number]) Ayaan VelardeHemoglobin [id number] 14:00:41 Test Item Value Reference Range Interpretation Comments Hemoglobin A1C (test 8.2 % 4-5.6 H HbA1c c utoffs for code = 52346-6) diagnosing diabetes:4.0% - 5.6% = normal5.7% - 6.4% = increased risk for diabetes (prediabetes)9> =6.5% = djzmzawx2Zfoh s for glycemic contro l (ADA 2016)< 7.0% Ta rget for non adults with maribell betes. More or less stringent targe ts may be appropriate for individual bolivar ents. <7.5% Target for Children and adolescents wit h type 1 diabetes. Lab Interpretation (test Abnormal code = 67865-8) Ayaan MethodistType and [id number] 13:22:00 Test Item Value Reference Range Interpretation Comments ABO grouping (test code = 883-9) B Rh type (test code = 99118-0) POS Antibody screen (gel) (test code = NEG 890-4) Ayaan MethodistXR Chest 2 [id number] 12:54:07Hm Interface, Radiology Results - 03/10/2020 12:57 PM CDTEXAMINATION: XR CHEST 2 VWCLINICAL HISTORY: N18.6 End stage renal disease, Z01.818 Encounter for other preprocedural examination, preopCOMPARISON: None.IMPRESSION:1.Lungs are clear.2.No evidence of pleural effusion.3.Mediastinal contours and cardiac silhouette are unremarkable.4.Right chest venous catheter with tip in the lower SVC.5.No acute osseous abnormality.[id number] MethodistCBC with platelet and [id number] 12:38:42 Test Item Value Reference Range Interpretation Comments WBC (test code = 7.9 See_Comment [Automated message] 10759-4) The system [employer] generated this result transmit kamila reference range : 4.5 - 11.0 k/uL. Th e reference range was not used to interpret this result as normal/abnormal . RBC (test code = 3.80 m/uL 4.4-6 L 50702-7) HGB (test code = 718-7) 10.9 g/dL 14-18 L HCT (test code = 4544-3) 33.6 % 41-51 L MCV (test code = 787-2) 88.4 fL 82-100 MCH (test code = 785-6) 28.7 pg 27-34 MCHC (test code = 786-4) 32.4 g/dL 31-37 RDW - SD (test code = 46.6 fL 37-55 93156-1) MPV (test code = 10.2 fL 6.9-11 76778-3) Platelet count (test 215 K/uL 150-400 code = 28875-9) Nucleated RBC (test code 0.00 See_Comment [A utomated message] = 32763-5) The system [employer] generated this result transmit kamila reference range : /100 WBC. The reference range was not used to interpret this result as normal/abnormal . Neutrophils (test code = 74.0 % 39-69 H 44508-1) Lymphocytes (test code = 15.6 % 25-45 L 66185-3) Monocytes (test code = 6.3 % 0-10 02001-1) Eosinophils (test code = 3.0 % 0-5 57709-0) Basophils (test code = 0.5 % 0-1 30076-2) Immature granulocytes 0.6 % 0-1 (test code = 16034-9) Lab Interpretation (test Abnormal code = 50112-4) Ayaan MethodistProthrombin time with [id number] 12:36:42 Test Item Value Reference Range Interpretation Comments Prothrombin time (test 12.6 See_Comment [Aut omated message] The code = 5902-2) system which generated this result tra nsmitted reference range : 11.5 - 14.5 sec. The r eference range was not u sed to interpret this result as normal/abnormal . INR (test code = 0.9 The Interna tional 97847-9) Normalized Rati o (INR) is a therapeutic m onitoring tool for patien ts who are stable on oral anticoagulant t herapy. An INR of 2.0-3.0 is suggested for d eep vein thrombosis/pulm onary embolism. Ayaan VelardePartial thromboplastin time, [id number] 12:36:33 Test Item Value Reference Range Interpretation Comments PTT (test code = 29.6 See_Comment PTT therape utic range for 3173-2) unfractionated heparin is61.0-112.0 se conds which corresponds to Anti-Xa0.3-0.7 U/ml. [Automat ed message] The system whic h generated this result tra nsmitted reference range : 23.0 - 36.0 sec. The refere nce range was not used to int erpret this result as lyric l/abnormal. Ayaan Velarde
[2020-09-06 09:28] LABS: Absolute Lymphocytes (CBC) 0.6 K/uL (0.7-4.9); Basophils % 0.6 % (0-1.3); Hematocrit 30.7 % (39.6-49.0); Lymphocytes % 12.3 % (15.3-44.8); MPV 9.2 fL (7.6-11.3); RBC Red Blood Cell Count 3.66 M/uL (4.33-5.43)
--- NOTE | 2020-09-06 09:59 | RAD REPORT ---
EXAM DESCRIPTION: Tejal Single View09/06/2020 9:47 am CLINICAL HISTORY: Shortness of breath COMPARISON: 2019 FINDINGS: Moderate bilateral pulmonary opacities. The heart is mildly enlarged IMPRESSION: Moderate bilateral pulmonary opacities could represent pneumonia or pulmonary edema
[2020-09-06 10:11] LABS: Bilirubin Direct 0.2 mg/dL (0-0.2); Bilirubin Total 0.5 mg/dL (0.2-1.0); Ferritin 5298.3 ng/mL (26-388); Potassium 4.6 mmol/L (3.5-5.1); Protein, Total 8.5 g/dL (6.4-8.2); Troponin (Emerg Dept Use Only) 0.14 ng/mL (0.0-0.045)
[2020-09-06 10:27] LABS: SARS-COV-2 RT PCR POSITIVE (NEGATIVE)
[2020-09-06] MEDS ORDERED: METHYLPREDNISOLONE 125 MG INJ ONE (11:07)
--- NOTE | 2020-09-06 13:16 | ER ---
Nurse's Notes [facility] Name: Nikita Bartlett Age: 44 yrs Sex: Male : 1975 Arrival Date: 09/06/2020 Time: 08:55 Bed 4 Private MD: Diagnosis: Viral pneumonia, unspecified;Coronavirus infection, unspecified;Hypoxemia;End stage renal disease Presentation: 09/06 08:58 Chief complaint: Patient states: PT presents to the ED via EMS with c/o weakness and bw SOB x 2 days. Pt receives dialysis, but denied this AM due to possible COVID symptoms. EMS states: Called for generalized weakness, Pt o2 upon their arrival 79% on RA. placed on non rebreather, 15L, o2 at 92%. at home with pneumonia, COVID negative. Did not receive dialysis this AM due to symptoms. Coronavirus screen: Client denies travel out of the [place] in the last 14 days. Client presents with at least one sign or symptom that may indicate coronavirus-19. Standard/surgical mask placed on the client. Provider contacted for isolation considerations. The client denies any previous COVID testing. Ebola Screen: No symptoms or risks identified at this time. Initial Sepsis Screen: Does the patient meet any 2 criteria? No. Patient's initial sepsis screen is negative. Does the patient have a suspected source of infection? No. Patient's initial sepsis screen is negative. Risk Assessment: Do you want to hurt yourself or someone else? Patient reports no desire to harm self or others. Onset of symptoms was September 04, 2020. Care prior to arrival: o2 placed with non rebreather mask at 15L. Activity prior to arrival: None. 08:58 Method Of Arrival: EMS: [facility] bw 08:58 Acuity: OCTAVIO 2 bw Triage Assessment: 09:11 General: Appears in no apparent distress. uncomfortable, Behavior is calm, cooperative, bw Reports feeling ill for. Pain: Denies pain. Neuro: No deficits noted. Cardiovascular: Dialysis shunt: in the left arm, with palpable thrill, with auscultated bruit, with no erythema, with no edema, no bleeding noted. Respiratory: Reports shortness of breath cough that is Respiratory effort is even, Respiratory pattern is tachypnea. GI: No deficits noted. Derm: No deficits noted. Historical: - Allergies: 09:11 No Known Allergies; bw - PMHx: 09:11 Diabetes - NIDDM; Dialysis; Hypertension; Anemia; Enlarged Heart; osteomyolitis; bw - Immunization history:: Adult Immunizations up to date. - Social history:: Smoking status: Patient/guardian denies using tobacco, but has a distant history of tobacco abuse. - Family history:: not pertinent. - Hospitalizations: : No recent hospitalization is reported. Screenin:06 Abuse screen: Denies threats or abuse. Nutritional screening: No deficits noted. bw Tuberculosis screening: No symptoms or risk factors identified. Fall Risk None identified. Assessment: 10:45 Reassessment: RT at bedside weaning pt off non-rebreather at this time per MD. Pt aa5 currently on Venti-mask and 89% O2 sat via Venti-Mask. . 11:00 Reassessment: RT at bedside attempting high flow nasal cannula. . aa5 11:23 VAN Scoring: Arm Drift: Patients demonstrates NO arm weakness. Patient is VAN Negative. bw The patient has not been NPO before screening. The patient is currently on the following diet: regular The patient is alert, and able to follow commands. The patient does not exhibit slurred or garbled speech. The patient is not exhibiting difficulty speaking. The patient does not exhibit difficulty understanding words. The patient is able to swallow own secretions with no drooling or need for suction. Patient tolerated one teaspoon of water. No drooling, immediate coughing, gurgling, or clearing of the throat was noted. The patient tolerated 90mL of water. No drooling, immediate coughing, gurgling, or clearing of the throat was noted. The patient passed the bedside swallow screening. Oral medications may be given as ordered. Contact Physician for further diet orders. 11:23 Provider notified of bedside swallow screening results: Waqar Casiano MD. T-PA (Activase) Screening: Contraindications: Other: pt COVID postive, no one sided weakness, no s/s of stroke. Vital Signs: 08:58 BP 127 / 73; Pulse 80; Resp 29; Temp 99.3; Pulse Ox 74% on R/A; Weight 122 kg; Height 5 bw ft. 9 in. (175.26 cm); 10:10 BP 124 / 75; Pulse 75; Resp 18; Pulse Ox 99% on 15% Non-rebreather mask; bw 11:06 BP 124 / 72; Pulse 82; Resp 16; Pulse Ox 91% on NC; bw 12:12 BP 129 / 73; Pulse 82; Resp 19; Pulse Ox 93% ; bw 13:47 BP 132 / 67; Pulse 77; Resp 15; Pulse Ox 94% ; jl7 08:58 Body Mass Index 39.72 (122.00 kg, 175.26 cm) bw 11:06 Pt placed on high flow O2 at 40 liters. bw NIH Stroke Scale Scores: 11:23 NIHSS Score: 0 bw ED Course: 08:55 Patient arrived in ED. ds1 08:56 Waqar Casiano MD is Attending Physician. rn 08:57 Nishi Camp RN is Primary Nurse. bw 08:58 Missed attempt(s): 18 gauge in right wrist. Bleeding controlled, band aid applied, aa5 catheter tip intact. 09:05 First set of blood cultures drawn by wi. aa5 09:09 Triage completed. bw 09:09 Initial lab(s) drawn, by wi, sent to lab. Second set of blood cultures drawn by wi. aa5 Inserted saline lock: 20 gauge in right forearm, using aseptic technique. Blood collected. 09:11 Arm band placed on right wrist. bw 09:15 threat monitoring analyst on. Pulse ox on. NIBP on. Warm blanket given. jl7 09:33 Blood Culture Adult (2) Sent. bw 09:33 BMP Sent. bw 09:34 C-Reactive Protein Sent. bw 09:47 CXR XRAY In Process Unspecified. EDMS 11:06 Patient has correct armband on for positive identification. Placed in gown. Bed in low bw position. Call light in reach. Side rails up X 1. 13:14 Kieran Morgan DO is Hospitalizing Provider. rn 13:45 No provider procedures requiring assistance completed. Patient admitted, IV remains in jl7 place. intact, No redness/swelling at site. Administered Medications: 10:54 Drug: SOLU-Medrol 125 mg Route: IVP; Site: right forearm; aa5 11:00 Follow up: Response: No adverse reaction bw Outcome: 09:15 Admitted to Med/surg accompanied by tech, via wheelchair, room 404, with oxygen, with jl7 chart, Report called to EMILIE Montemayor 09:15 Condition: stable 09:15 Discharge instructions given to patient, Instructed on the need for admit, Demonstrated understanding of instructions. 13:15 Decision to Hospitalize by Provider. rn 14:32 Patient left the ED. aa5 NIH Stroke Scale - NIH Stroke Score Date: 09/06/2020 Time: 11:23 Total Score = 0 1a. Level of Consciousness (LOC) - 0(Alert) 1b. Level of Consciousness (LOC) (Year \T\ Age) - 0(Both) 1c. LOC Commands (Open \T\ Closes Eyes/Life Insurance Sales) - 0(Both) 2. Best Gaze (Lateral Gaze Paresis) - 0(Normal) 3. Visual Field Loss - 0(No visual loss) 4. Facial Palsy - 0(Normal) 5a. Left Arm: Motor (10-second hold) - 0(No drift) 5b. Right Arm: Motor (10-second hold) - 0(No drift) 6a. Left Leg: Motor (5-second hold - always test supine) - 0(No drift) 6b. Right Leg: Motor (5-second hold - always test supine) - 0(No drift) 7. Limb Ataxia (finger/nose \T\ heel/chandler - test with eyes open) - 0(Absent) 8. Sensory Loss (pinprick arms/legs/face) - 0(Normal) 9. Best Language: Aphasia (description/naming/reading) - 0(No aphasia) 10. Dysarthria (speech clarity - read or repeat words) - 0(Normal) 11. Extinction and Inattention (visual/tactile/auditory/spatial/personal) - 0(No abnormality) Initials: bw Signatures: Dispatcher [employer] [facility] ds1 Waqar Casiano MD MD rn Calderon, Audri, RN RN aa5 France More RN RN jl7 Nishi Camp RN RN Corrections: (The following items were deleted from the chart) 09:46 09:44 BP 135 / 90; Pulse 77bpm; Resp 14bpm; Pulse Ox 99% RA; Temp 98.3F; bw bw 09:46 09:44 Blood Glucose: Blood Glucose Vikcgkb=703 mg/dL. bw bw 19:06 19:05 Response: No adverse reaction bw bw
--- NOTE | 2020-09-06 13:16 | EDPHYS ---
Physician Documentation [facility] Name: Niktia Bartlett Age: 44 yrs Sex: Male : 1975 Arrival Date: 09/06/2020 Time: 08:55 Bed 4 Private MD: ED Physician Waqar Casiano HPI: 09/06 11:07 This 44 yrs old Male presents to ER via EMS with complaints of Weakness, sob. rn 11:08 The patient has shortness of breath at rest, with light activity. Onset: The rn symptoms/episode began/occurred 2 day(s) ago. Duration: The symptoms are continuous. The patient's shortness of breath is aggravated by exertion, light activity. Severity of symptoms: At their worst the symptoms were moderate in the emergency department the symptoms are unchanged. The patient has not experienced similar symptoms in the past. Reports fever, cough, sob, for 2-3 days, O2 in high 70s per EMS. Has not missed any dialysis sessions.. Historical: - Allergies: :11 No Known Allergies; bw - PMHx: 09:11 Diabetes - NIDDM; Dialysis; Hypertension; Anemia; Enlarged Heart; osteomyolitis; bw - Immunization history:: Adult Immunizations up to date. - Social history:: Smoking status: Patient/guardian denies using tobacco, but has a distant history of tobacco abuse. - Family history:: not pertinent. - Hospitalizations: : No recent hospitalization is reported. ROS: 11:08 Constitutional: + fever and chills Eyes: Negative for injury, pain, redness, and admissions rn, Neck: Negative for injury, pain, and swelling, Cardiovascular: Negative for chest pain, palpitations, and edema, Respiratory: Negative for pleuritic chest pain Abdomen/GI: Negative for abdominal pain, nausea, vomiting, diarrhea, and constipation, Back: Negative for injury and pain, MS/Extremity: Negative for injury and deformity, Skin: Negative for injury, rash, and discoloration, Neuro: Negative for headache, numbness, tingling, and seizure. Exam: 11:08 Constitutional: This is a well developed, well nourished patient who is awake, alert, rn mild tachypnea Head/Face: Normocephalic, atraumatic. ENT: no stridor Cardiovascular: Regular rate and rhythm. No pulse deficits. Respiratory: + mild to moderate tachypnea, no wheezing, no retractions Abdomen/GI: soft, non-tender Skin: Warm, dry with normal turgor. Normal color with no rashes, no lesions, and no evidence of cellulitis. MS/ Extremity: Pulses equal, no cyanosis. Neurovascular intact. Full, normal range of motion. Equal circumference. Neuro: Awake and alert, GCS 15 Vital Signs: 08:58 BP 127 / 73; Pulse 80; Resp 29; Temp 99.3; Pulse Ox 74% on R/A; Weight 122 kg; Height 5 bw ft. 9 in. (175.26 cm); 10:10 BP 124 / 75; Pulse 75; Resp 18; Pulse Ox 99% on 15% Non-rebreather mask; bw 11:06 BP 124 / 72; Pulse 82; Resp 16; Pulse Ox 91% on NC; bw 12:12 BP 129 / 73; Pulse 82; Resp 19; Pulse Ox 93% ; bw 13:47 BP 132 / 67; Pulse 77; Resp 15; Pulse Ox 94% ; jl7 08:58 Body Mass Index 39.72 (122.00 kg, 175.26 cm) bw 11:06 Pt placed on high flow O2 at 40 liters. bw NIH Stroke Scale Scores: 11:23 NIHSS Score: 0 bw MDM: 08:56 Patient medically screened. rn 13:13 Differential diagnosis: Chronic Obstructive Pulmonary Disease pneumonia, Pneumothorax rn pulmonary edema, pulmonary fibrosis, ESRD, COVID. Data reviewed: vital signs, nurses notes, lab test result(s), radiologic studies, plain films, and as a result, I will admit patient. Counseling: I had a detailed discussion with the patient and/or guardian regarding: the historical points, exam findings, and any diagnostic results supporting the discharge/admit diagnosis, lab results, radiology results, the need for further work-up and treatment in the hospital. Response to treatment: the patient's symptoms have markedly improved after treatment. Admission orders: after a detailed discussion of the patient's condition and case, the admit orders are written by me. 09/06 08:58 Order name: Blood Culture Adult (2) rn 09/06 08:58 Order name: BMP rn 09/06 08:58 Order name: C-Reactive Protein rn 09/06 08:58 Order name: CBC with Diff; Complete Time: 10:07 rn 09/06 08:58 Order name: Ferritin; Complete Time: 11:11 rn 09/06 08:58 Order name: Lactate; Complete Time: 10:07 rn 09/06 08:58 Order name: LFT's; Complete Time: 11:11 rn 09/06 08:58 Order name: Procalcitonin; Complete Time: 11:11 rn 09/06 08:58 Order name: PT-INR; Complete Time: 10:07 rn 09/06 08:58 Order name: Ptt, Activated; Complete Time: 10:07 rn 09/06 08:58 Order name: Troponin (emerg Dept Use Only); Complete Time: 11:11 rn 09/06 08:58 Order name: Blood Culture EDMS 09/06 08:58 Order name: CXR XRAY; Complete Time: 10:07 rn 09/06 08:58 Order name: EKG; Complete Time: 08:59 rn 09/06 08:58 Order name: Cardiac monitoring; Complete Time: 09:33 rn 09/06 08:58 Order name: Droplet/Contact Precautions; Complete Time: 09:33 rn 09/06 08:58 Order name: EKG - Nurse/Tech; Complete Time: 09:33 rn 09/06 08:58 Order name: IV Start; Complete Time: 09:33 rn 09/06 08:58 Order name: Labs collected and sent; Complete Time: 09:33 rn 09/06 08:58 Order name: O2 Per Protocol; Complete Time: 09:33 rn 09/06 08:58 Order name: O2 Sat Monitoring; Complete Time: 09:33 rn 09/06 08:58 Order name: Basic Metabolic Panel; Complete Time: 11:11 EDMS 09/06 08:58 Order name: C-Reactive Protein; Complete Time: 11:11 EDMS 09/06 10:28 Order name: COVID-19/FLU A+B; Complete Time: 11:11 EDMS 09/06 11:21 Order name: Oxygen: high flow; Complete Time: 11:54 rn Administered Medications: 10:54 Drug: SOLU-Medrol 125 mg Route: IVP; Site: right forearm; aa5 11:00 Follow up: Response: No adverse reaction bw Disposition: 09/06/20 13:15 Hospitalization ordered by Kieran Morgan for Inpatient Admission. Preliminary diagnosis are Viral pneumonia, unspecified, Coronavirus infection, unspecified, Hypoxemia, End stage renal disease. - Bed requested for Telemetry/MedSurg (Inpatient). - Status is Inpatient Admission. aa5 - Condition is Stable. - Problem is new. - Symptoms have improved. NIH Stroke Scale - NIH Stroke Score Date: 09/06/2020 Time: 11:23 Total Score = 0 1a. Level of Consciousness (LOC) - 0(Alert) 1b. Level of Consciousness (LOC) (Year \T\ Age) - 0(Both) 1c. LOC Commands (Open \T\ Closes Eyes/Iron Pourer) - 0(Both) 2. Best Gaze (Lateral Gaze Paresis) - 0(Normal) 3. Visual Field Loss - 0(No visual loss) 4. Facial Palsy - 0(Normal) 5a. Left Arm: Motor (10-second hold) - 0(No drift) 5b. Right Arm: Motor (10-second hold) - 0(No drift) 6a. Left Leg: Motor (5-second hold - always test supine) - 0(No drift) 6b. Right Leg: Motor (5-second hold - always test supine) - 0(No drift) 7. Limb Ataxia (finger/nose \T\ heel/chandler - test with eyes open) - 0(Absent) 8. Sensory Loss (pinprick arms/legs/face) - 0(Normal) 9. Best Language: Aphasia (description/naming/reading) - 0(No aphasia) 10. Dysarthria (speech clarity - read or repeat words) - 0(Normal) 11. Extinction and Inattention (visual/tactile/auditory/spatial/personal) - 0(No abnormality) Initials: bw Signatures: Dispatcher [employer] EDMS Waqar Casiano MD MD rn Calderon, Audri, RN RN aa5 Ivon Duenas Bethany, RN RN bw Corrections: (The following items were deleted from the chart) 09:24 09:09 CORONAVIRUS+MR.LAB.BRZ ordered. EDMS EDMS 09:29 08:59 Influenza Screen (A \T\ B)+BA.LAB.BRZ ordered. EDMS EDMS 13:13 11:08 Constitutional: This is a well developed, well nourished patient who is rn awake, alert, mild tachypnea Head/Face: Normocephalic, atraumatic. ENT: no stridor Cardiovascular: Regular rate and rhythm. No pulse deficits. Respiratory: + mild to moderate tachypnea, no wheezing, no retractions Abdomen/GI: soft, non-tender rn 13:17 13:15 Hospitalization Ordered by Kieran Morgan DO for Inpatient Admission. eb Preliminary diagnosis is Viral pneumonia, unspecified; Coronavirus infection, unspecified; Hypoxemia; End stage renal disease. Bed requested for Telemetry/MedSurg (Inpatient). Status is Inpatient Admission. Condition is Stable. Problem is new. Symptoms have improved. rn 14:32 13:17 09/06/2020 13:15 Hospitalization Ordered by Kieran Morgan DO for aa5 Inpatient Admission. Preliminary diagnosis is Viral pneumonia, unspecified; Coronavirus infection, unspecified; Hypoxemia; End stage renal disease. Bed requested for Telemetry/MedSurg (Inpatient). Status is Inpatient Admission. Condition is Stable. Problem is new. Symptoms have improved. eb
[2020-09-06] MEDS ORDERED: ACETAMINOPHEN 500 MG TAB PO PRN (14:13)
[2020-09-06] MEDS ORDERED: D50W 25 GM/50 ML SYRINGE IV PRN (14:13)
[2020-09-06] MEDS ORDERED: ONDANSETRON 4 MG/2 ML VIAL IV PRN (14:13)
[2020-09-06] MEDS ORDERED: GLUCAGON 1 MG/VIAL IM PRN (14:13)
[2020-09-06] MEDS: METHYLPREDNISOLONE 125 MG INJ IV SCH ×2 (15:22→20:41)
[2020-09-06] MEDS ORDERED: Remdesivir 200 MG in NA CHLORIDE 0.9% 250 ML IV ONE (16:00)
[2020-09-06] MEDS ORDERED: IVERMECTIN 3 MG TABLET PO ONE (16:00)
--- NOTE | 2020-09-06 16:19 | P.HP ---
Certification for Inpatient Patient admitted to: Inpatient With expected LOS: >2 Midnights Patient will require the following post-hospital care: None Practitioner: I am a practitioner with admitting privileges, knowledge of patient current condition, hospital course, and medical plan of care. Services: Services provided to patient in accordance with Admission requirements found in Title 42 Section 412.3 of the Code of Federal Regulations Patient History Date of Service: 09/06/20 Primary Care Provider: Dr. Davis; Nephrology-Dr. Garibay Reason for admission: Fever, shortness of breath History of Present Illness: 44-year-old male with history of diabetes mellitus type 2, hypertension, and end-stage renal disease on hemodialysis. Over the past several days patient has been reporting some increasing cough, congestion, fever and shortness of breath. He reports that a family member was positive for COVID. Symptoms have not improved. He was to have dialysis today but due to his fever and room-air saturations being low he was sent to the ER for further evaluation. In the ER patient was evaluated. Patient required high-flow oxygen in the emergency room. White count 5.0, hemoglobin 10.4. Platelet count 123. Sodium 131, potassium 4.6. BS 66, creatinine 12.12 with a GFR 5. Glucose 80. Lactic acid 1.2. Troponin 0.14. Pro calcitonin 1.57 with the CRP of 138 , ferritin above 5000. Chest x-ray shows evidence of viral pneumonia. Patient was positive for COVID. Patient was admitted for treatment When I saw the patient in the ER, patient appeared stable on high-flow. Allergies No Known Drug Allergies Allergy (Verified 11/24/19 04:29) Unknown Home medications list reviewed: Yes Home Medications: Amlodipine [Norvasc*] 10 mg PO DAILY 11/24/19 Atorvastatin Calcium [Lipitor*] 10 mg PO DAILY 11/24/19 Furosemide 40 mg PO BID 11/24/19 Glimepiride [Amaryl] 4 mg PO DAILY 11/24/19 Linagliptin [Tradjenta] 5 mg PO DAILY 11/24/19 Metoprolol Succinate 50 mg PO BID 11/24/19 Aspirin [Aspirin EC 81 MG] 81 mg PO DAILY 09/06/20 Cholecalciferol (Vitamin D3) [Vitamin D3] 5,000 units PO DAILY 09/06/20 - Past Medical/Surgical History Diabetic: Yes -: Diabetes mellitus type 2 -: Hypertension -: End-stage renal disease on hemodialysis -: Former tobacco use -: Anemia of chronic disease -: Right tibia sx r/t fx Psychosocial/ Personal History: His preference would be for him to have doctors and nurses who are Romanian. - Family History Father -: Cancer Mother -: Diabetes - Social History Smoking Status: Former smoker Alcohol use: Yes CD- Drugs: No Caffeine use: Yes Place of Residence: Home Review of Systems General: Fever, Chills, As per HPI Eyes: Unremarkable ENT: As per HPI Respiratory: Cough, Shortness of Breath, SOB with Excertion, As per HPI Cardiovascular: Unremarkable Gastrointestinal: Unremarkable Genitourinary: Unremarkable Musculoskeletal: Unremarkable Integumentary: Unremarkable Neurological: Unremarkable Lymphatics: Unremarkable Physical Examination - Vital Signs Temperature: 97.8 F Blood Pressure: 142/71 Pulse: 66 Respirations: 17 Pulse Ox (%): 84 - Physical Exam General: Alert, Cooperative, Mild distress, Other (Patient on high-flow oxygen) HEENT: Atraumatic, Normocephalic Neck: Supple Respiratory: Crackles/rales, Expiratory wheezes Cardiovascular: Normal pulses, Regular rate/rhythm Gastrointestinal: Normal bowel sounds, Soft and benign, Non-distended, No masses, No rebound, No guarding Musculoskeletal: No erythema, No tenderness, No warmth Integumentary: No tenderness/swelling Neurological: Normal speech, Normal strength at 5/5 x4 extr, Normal tone, Normal affect - Studies Laboratory Data (last 24 hrs) 09/06/20 09:09: PT 11.5, INR 1.00, APTT 33.8 09/06/20 09:09: Sodium 131 L, Potassium 4.6, BUN 66 H, Creatinine 12.20 H*, Glucose 80, Total Bilirubin 0.5, AST 120 H, ALT 51, Alkaline Phosphatase 128 H 09/06/20 00:48: WBC 5.00, Hgb 10.4 L, Hct 30.7 L, Plt Count 123 L Assessment and Plan - Plan Impression: Fever, dyspnea secondary to acute respiratory failure with hypoxia related to bilateral COVID pneumonia ESRD on hemodialysis DM Type 2 HTN Anemia of chronic disease Plan: Fever, dyspnea secondary to acute respiratory failure with hypoxia related to bilateral COVID pneumonia: Patient will be admitted for treatment. Plan of care address with the patient. Will start with IV steroid, ivermectin and initiate Remdesivir due to his severity of symptoms. Will maintain oxygenation above 93%. Currently on high-flow oxygen. Will also continue with supplementation. Will also start Eliquis to cover for risk of PE/DVT due to his positive COVID status. Will consult pulmonology to further evaluate. Will also consult nephrology. Restart home medications. Continue to monitor closely. Anticipate improvement over the next 3-5 days. ESRD on hemodialysis: Nephrology consulted. Patient will need dialysis during the course of his stay. DM Type 2: Will monitor Accu-Cheks. Sliding scale in place. Will check A1c. HTN: Restart home medication. Will monitor and adjust appropriately. Anemia of chronic disease: Will monitor and adjust appropriately. Discharge Plan: Home Plan to discharge in: Greater than 2 days - Advance Directives Does patient have a Living Will: No Does patient have a Durable POA for Healthcare: No - Code Status/Comfort Care Code Status Assessed: Yes (Patient is full code) Time Spent Managing Pts Care (In Minutes): 55
[2020-09-06] MEDS: INSULIN -REGULAR HUMAN 50 UNIT/0.5 ML ML SQ SCH ×2 (16:30→20:43)
--- NOTE | 2020-09-06 17:21 | P.CNS ---
Date of Consult: 09/06/20 (Telephone visit) Primary Care Provider: Dr. Davis; Nephrology-Dr. Garibay Chief Complaint: Maurer virus pneumonia History of Present Illness: Patient is 44 years of age Dc diabetes hypertension and stage renal disease on hemodialysis is in presented with increasing cough shortness of breath diagnosed with maurer virus pneumonia chest x-rays very characteristic 44-year-old male with history of diabetes mellitus type 2, hypertension, and end-stage renal disease on hemodialysis. Allergies No Known Drug Allergies Allergy (Verified 11/24/19 04:29) Unknown Home Medications: Amlodipine [Norvasc*] 10 mg PO DAILY 11/24/19 Atorvastatin Calcium [Lipitor*] 10 mg PO DAILY 11/24/19 Furosemide 40 mg PO BID 11/24/19 Glimepiride [Amaryl] 4 mg PO DAILY 11/24/19 Linagliptin [Tradjenta] 5 mg PO DAILY 11/24/19 Metoprolol Succinate 50 mg PO BID 11/24/19 Aspirin [Aspirin EC 81 MG] 81 mg PO DAILY 09/06/20 Cholecalciferol (Vitamin D3) [Vitamin D3] 5,000 units PO DAILY 09/06/20 - Past Medical/Surgical History Diabetic: Yes -: Diabetes mellitus type 2 -: Hypertension -: End-stage renal disease on hemodialysis -: Former tobacco use -: Anemia of chronic disease -: Right tibia sx r/t fx Psychosocial/ Personal History: His preference would be for him to have doctors and nurses who are Burmese. - Family History Father Medical History: Cancer Mother Medical History: Diabetes - Social History Smoking Status: Former smoker Alcohol use: Yes CD- Drugs: No Caffeine use: Yes Place of Residence: Home Review of Systems Respiratory: Cough, Shortness of Breath Physical Examination Temp Pulse Resp BP Pulse Ox 97.8 F 66 17 142/71 H 84 L 09/06/20 16:19 09/06/20 16:19 09/06/20 16:19 09/06/20 16:19 09/06/20 16:19 Laboratory Data (last 24 hrs) 09/06/20 09:09: PT 11.5, INR 1.00, APTT 33.8 09/06/20 09:09: Sodium 131 L, Potassium 4.6, BUN 66 H, Creatinine 12.20 H*, Glucose 80, Total Bilirubin 0.5, AST 120 H, ALT 51, Alkaline Phosphatase 128 H 09/06/20 00:48: WBC 5.00, Hgb 10.4 L, Hct 30.7 L, Plt Count 123 L - Problems (1) Acute respiratory failure due to severe acute respiratory syndrome coronavirus 2 (SARS-CoV-2) infection Current Visit: Yes Status: Acute Plan: Patient is 44 years of age admitted with maurer virus pneumonia currently on 60% high-flow oxygen chest x-ray consistent with maurer virus pneumonia labs reviewed chronic renal failure on hemodialysis agree with present therapy continue titrate oxygen down
[2020-09-06 19:44] LABS: CKMB Creatine Kinase MB 6.2 ng/mL (0.3-3.6); Troponin I 0.12 ng/mL (0.0-0.045)
--- NOTE | 2020-09-06 20:31 | P.CNS ---
Date of Consult: 09/06/20 Reason for Consult: ESRD Requesting Physician: Kieran Morgan Primary Care Provider: Dr. Davis; Nephrology-Dr. Garibay Chief Complaint: Leach virus pneumonia History of Present Illness: 44-year-old male with history of diabetes mellitus type 2, hypertension, and end-stage renal disease on hemodialysis. Over the past several days patient has been reporting some increasing cough, congestion, fever and shortness of breath. He reports that a family member was positive for COVID. Symptoms have not improved. He was to have dialysis today but due to his fever and room-air saturations being low he was sent to the ER for further evaluation. 11:07 This 44 yrs old Male presents to ER via EMS with complaints of Weakness, sob. rn 11:08 The patient has shortness of breath at rest, with light activity. Onset: The rn symptoms/episode began/occurred 2 day(s) ago. Duration: The symptoms are continuous. The patient's shortness of breath is aggravated by exertion, light activity. Severity of symptoms: At their worst the symptoms were moderate in the emergency department the symptoms are unchanged. The patient has not experienced similar symptoms in the past. Reports fever, cough, sob, for 2-3 days, O2 in high 70s per EMS. Has not missed any dialysis sessions.. Allergies No Known Drug Allergies Allergy (Verified 11/24/19 04:29) Unknown Home Medications: Amlodipine [Norvasc*] 10 mg PO DAILY 11/24/19 Atorvastatin Calcium [Lipitor*] 10 mg PO DAILY 11/24/19 Furosemide 40 mg PO BID 11/24/19 Glimepiride [Amaryl] 4 mg PO DAILY 11/24/19 Linagliptin [Tradjenta] 5 mg PO DAILY 11/24/19 Metoprolol Succinate 50 mg PO BID 11/24/19 Aspirin [Aspirin EC 81 MG] 81 mg PO DAILY 09/06/20 Cholecalciferol (Vitamin D3) [Vitamin D3] 5,000 units PO DAILY 09/06/20 - Past Medical/Surgical History Diabetic: Yes -: Diabetes mellitus type 2 -: Hypertension -: End-stage renal disease on hemodialysis -: Former tobacco use -: Anemia of chronic disease -: Right tibia sx r/t fx Psychosocial/ Personal History: His preference would be for him to have doctors and nurses who are [place]. - Family History Father Medical History: Cancer Mother Medical History: Diabetes - Social History Smoking Status: Former smoker Alcohol use: Yes CD- Drugs: No Caffeine use: Yes Place of Residence: Home Review of Systems 10-point ROS is otherwise unremarkable General: Weakness, Malaise Respiratory: Cough, Shortness of Breath, SOB with Excertion Neurological: Weakness Physical Examination Temp Pulse Resp BP Pulse Ox 98.9 F 79 20 120/63 88 L 09/06/20 20:00 09/06/20 20:00 09/06/20 20:00 09/06/20 20:00 09/06/20 20:00 General: In no apparent distress, Oriented x3, Cooperative HEENT: Atraumatic Neck: Supple, JVD distended Respiratory: Diminished Cardiovascular: Regular rate/rhythm, Edema Gastrointestinal: Soft and benign, Non-distended Musculoskeletal: No clubbing, No contractures Integumentary: No rashes, No cyanosis Neurological: Normal speech Laboratory Data (last 24 hrs) 09/06/20 09:09: PT 11.5, INR 1.00, APTT 33.8 09/06/20 09:09: Sodium 131 L, Potassium 4.6, BUN 66 H, Creatinine 12.20 H*, Glucose 80, Total Bilirubin 0.5, AST 120 H, ALT 51, Alkaline Phosphatase 128 H 09/06/20 00:48: WBC 5.00, Hgb 10.4 L, Hct 30.7 L, Plt Count 123 L Imagings Data: EXAM DESCRIPTION: Tejal Single View09/06/2020 9:47 am CLINICAL HISTORY: Shortness of breath COMPARISON: 2019 FINDINGS: Moderate bilateral pulmonary opacities. The heart is mildly enlarged IMPRESSION: Moderate bilateral pulmonary opacities could represent pneumonia or pulmonary edema Conclusions/Impression: A/P: Continue the current POC and Medications other than the changes listed. AM Labs PRN. Recommend daily weight. Please see the orders for complete details. ESRD -HD tomorrow Hyponatremia -Arrange for acute HD Acidosis -Arrange for acute HD HTN with CKD/ CHF -Continue Amlodipine -Continue Metoprolol and Doxazosin Diastolic CHF -HD with UF -Continue Metoprolol DM II with CKD and Polyneuropathy -Continue Lantus Anemia in CKD -Start Retacrit DANITA/ Secondary HyperPTH -Incrase Vitamin D3 Rhabdomyolysis COVID PNA -Continue Solumedrol -Continue Remdesevir Thank you kindly for the consultation.
[2020-09-06] MEDS ORDERED: MANNITOL 25% 12.5 GM/50 ML VIAL IV PRN (20:39)
[2020-09-06] MEDS ORDERED: NA CHLORIDE 0.9% 1,000 ML IV PRN (20:39)
[2020-09-06] MEDS: APIXABAN 2.5 MG TABLET PO SCH (20:40)
[2020-09-06] MEDS: METOPROLOL TAR 50 MG TAB PO SCH (20:40)
[2020-09-06] MEDS: THIAMINE HCL 100 MG TABLET PO SCH (20:40)
[2020-09-06] MEDS: DOXAZOSIN 2 MG TAB PO SCH (20:41)
[2020-09-06] MEDS: MELATONIN 5 MG TABLET PO SCH (20:41)
[2020-09-06] MEDS: DOCUSATE NA 100 MG CAP PO SCH (20:55)
[2020-09-06] MEDS ORDERED: ALBUMIN HUMAN 25% 50 ML IV SCH (21:00)
[2020-09-06] MEDS ORDERED: INSULIN GLARGINE 100 UNITS/ML SQ SCH (21:00)
[2020-09-06] MEDS ORDERED: DOCUSATE NA 100 MG CAP PO ONE (21:12)
[2020-09-07 03:58] LABS: Absolute Lymphocytes (CBC) 0.4 K/uL (0.7-4.9); Basophils % 0.3 % (0-1.3); Hematocrit 27.1 % (39.6-49.0); MPV 9.1 fL (7.6-11.3); RBC Red Blood Cell Count 3.24 M/uL (4.33-5.43)
[2020-09-07 04:19] LABS: CKMB Creatine Kinase MB 5.8 ng/mL (0.3-3.6); Troponin I 0.08 ng/mL (0.0-0.045)
[2020-09-07 04:38] LABS: Albumin 2.4 g/dL (3.4-5.0); Bilirubin Total 0.5 mg/dL (0.2-1.0); Ferritin 5158.6 ng/mL (26-388); Magnesium 2.1 mg/dL (1.8-2.4); Protein, Total 7.3 g/dL (6.4-8.2); Thyroid Stimulating Hormone 0.367 uIU/mL (0.360-3.740); Uric Acid 8.2 mg/dL (3.5-7.2)
[2020-09-07 04:41] LABS: Phosphorus 9.5 mg/dL (2.5-4.9)
[2020-09-07 05:09] LABS: Urine Appearance CLOUDY; Urine Bilirubin NEGATIVE (NEG); Urine Blood 3+ (NEG); Urine Color YELLOW; Urine Glucose 2+ (NEG); Urine Protein 3+ (NEG); Urine Specific Gravity 1.025 (1.005-1.030); Urine Urobilinogen 0.2 mg/dL (0.2-1.0)
[2020-09-07 05:15] LABS: Urine Microscopic Reflex ORDER UMIC
[2020-09-07 05:52] LABS: Urine Bacteria 20-50 /HPF (NONE SEEN)
[2020-09-07] MEDS: THIAMINE HCL 100 MG TABLET PO SCH ×2 (08:15→22:40)
[2020-09-07] MEDS: ASCORBIC ACID 500 MG TABLET PO SCH (08:15)
[2020-09-07] MEDS: ZINC SULFATE 220 MG CAP PO SCH (08:15)
[2020-09-07] MEDS: VITAMIN D 5,000 UNIT CAP PO SCH (08:15)
[2020-09-07] MEDS: CALCITROL 0.25 MCG CAP PO SCH (08:15)
[2020-09-07] MEDS: MULTIVITAMINS,THERAPEUT 1 TAB PO SCH (08:15)
[2020-09-07] MEDS: METHYLPREDNISOLONE 125 MG INJ IV SCH ×3 (08:16→22:39)
[2020-09-07] MEDS: APIXABAN 2.5 MG TABLET PO SCH ×2 (08:16→22:39)
[2020-09-07] MEDS: DOCUSATE NA 100 MG CAP PO SCH ×2 (08:16→22:39)
[2020-09-07] MEDS: EPOETIN ALFA-EPBX 4,000 UNIT/ML VIAL SQ SCH (08:16)
[2020-09-07] MEDS: INSULIN -REGULAR HUMAN 50 UNIT/0.5 ML ML SQ SCH ×4 (08:21→22:45)
[2020-09-07] MEDS: METOPROLOL TAR 50 MG TAB PO SCH ×2 (08:22→22:40)
[2020-09-07] MEDS: AMLODIPINE 10 MG TAB PO SCH (08:22)
[2020-09-07] MEDS ORDERED: VITAMIN D 1000 UNIT TAB PO SCH (09:00)
--- NOTE | 2020-09-07 09:43 | P.PN ---
Subjective Date of Service: 09/07/20 Primary Care Provider: Dr. Davis; Nephrology-Dr. Garibay Chief Complaint: Leach virus pneumonia Subjective: Improving, Doing well (On high-flow oxygen) Physical Examination - Vital Signs Temperature: 96.8 F Blood Pressure: 132/79 Pulse: 63 Respirations: 16 Pulse Ox (%): 89 - Studies Laboratory Data (last 24 hrs) 09/06/20 09:09: Sodium 131 L, Potassium 4.6, BUN 66 H, Creatinine 12.20 H*, Glucose 80, Total Bilirubin 0.5, AST 120 H, ALT 51, Alkaline Phosphatase 128 H Assessment & Plan Discharge Plan: Home Plan to discharge in: 48 Hours Physician Review Additional Text: Physical exam: Patient alert, cooperative. Currently on high-flow oxygen at 70 %. Heart: Regular rate Lungs: Currently on high-flow oxygen Abdomen: Soft Extremities: Good range of motion. No focal deficits. Impression: Fever, dyspnea secondary to acute respiratory failure with hypoxia related to bilateral COVID pneumonia ESRD on hemodialysis DM Type 2 with hyperglycemia HTN Anemia of chronic disease Hyperlipidemia Plan: Fever, dyspnea secondary to acute respiratory failure with hypoxia related to bilateral COVID pneumonia: Patient shows improvement. Currently on high-flow oxygen at 70%. Continue to wean down. Continue with IV steroid, ivermectin and Remdesivir. Continue monitor electrolytes closely. Continue with Eliquis to cover for risk of PE/DVT due to his positive COVID status. Spoke with pulmonology who agrees with plan of care. Anticipate dialysis today. Nephrology consulted. Respiratory to continue to adjust oxygen needs. Encourage incentive spirometer, proning and ambulation. Anticipate improvement over the next 48-72 hr. ESRD on hemodialysis: Nephrology consulted. Patient to continue with dialysis. Lasix restarted. DM Type 2 with hyperglycemia: A1c elevated at 8.6. Glimepiride and Tradjenta restarted. Will also add Lantus for better diabetic control. Continue to adjust appropriately. He may require this at discharge. HTN: Home medication restarted. Will monitor and adjust appropriately. Anemia of chronic disease: Will monitor and adjust appropriately. Hyperlipidemia: Home medication restarted Time Spent Managing Pts Care (In Minutes): 55
[2020-09-07] MEDS ORDERED: INSULIN GLARGINE 100 UNITS/ML SQ SCH (10:00)
--- NOTE | 2020-09-07 12:47 | P.PN ---
Subjective Date of Service: 09/07/20 Primary Care Provider: Dr. Davis; Nephrology-Dr. Garibay Chief Complaint: Respiratory failure Subjective: Improving (Patient is subjectively feels better still requiring high concentration of oxygen) Review of Systems General: Weakness Respiratory: Shortness of Breath Physical Examination - Vital Signs Temperature: 96.7 F Blood Pressure: 138/78 Pulse: 62 Respirations: 16 Pulse Ox (%): 94 - Physical Exam General: Alert, Moderate distress Respiratory: Clear to auscultation bilaterally, Diminished Assessment & Plan - Problems (Diagnosis) (1) Acute respiratory failure due to severe acute respiratory syndrome coronavirus 2 (SARS-CoV-2) infection Current Visit: Yes Status: Acute Plan: Respiratory failure from maurer virus patient is improving labs reviewed hyponatremia chronic renal failure on dialysis no change in present therapy continue with steroids and Eliquis Physician Review Additional Text: Physical exam: Patient alert, cooperative. Currently on high-flow oxygen at 70 %. Heart: Regular rate Lungs: Currently on high-flow oxygen Abdomen: Soft Extremities: Good range of motion. No focal deficits. Impression: Fever, dyspnea secondary to acute respiratory failure with hypoxia related to bilateral COVID pneumonia ESRD on hemodialysis DM Type 2 with hyperglycemia HTN Anemia of chronic disease Hyperlipidemia Plan: Fever, dyspnea secondary to acute respiratory failure with hypoxia related to bilateral COVID pneumonia: Patient shows improvement. Currently on high-flow oxygen at 70%. Continue to wean down. Continue with IV steroid, ivermectin and Remdesivir. Continue monitor electrolytes closely. Continue with Eliquis to cover for risk of PE/DVT due to his positive COVID status. Spoke with pulmonology who agrees with plan of care. Anticipate dialysis today. Nephrology consulted. Respiratory to continue to adjust oxygen needs. Encourage incentive spirometer, proning and ambulation. Anticipate improvement over the next 48-72 hr. ESRD on hemodialysis: Nephrology consulted. Patient to continue with dialysis. Lasix restarted. DM Type 2 with hyperglycemia: A1c elevated at 8.6. Glimepiride and Tradjenta restarted. Will also add Lantus for better diabetic control. Continue to adjust appropriately. He may require this at discharge. HTN: Home medication restarted. Will monitor and adjust appropriately. Anemia of chronic disease: Will monitor and adjust appropriately. Hyperlipidemia: Home medication restarted
--- NOTE | 2020-09-07 19:30 | P.PN ---
Date of Service: 09/07/20 Vital Signs Temp Pulse Resp BP Pulse Ox 96.6 F L 63 16 118/67 94 09/07/20 16:00 09/07/20 16:00 09/07/20 16:00 09/07/20 16:00 09/07/20 16:00 Medications Acetaminophen (Acetaminophen 500 Mg Tab) 500 mg PO Q4HP PRN PRN Reason: TEMP > 101' F Amlodipine Besylate (Amlodipine 10 Mg Tab) 10 mg PO DAILY [facility] Last Admin: 09/07/20 08:22 Dose: Not Given Documented by: Apixaban (Apixaban 2.5 Mg Tablet) 2.5 mg PO BID [facility] Last Admin: 09/07/20 08:16 Dose: 2.5 mg Documented by: Ascorbic Acid (Ascorbic Acid 500 Mg Tablet) 500 mg PO DAILY [facility] Last Admin: 09/07/20 08:15 Dose: 500 mg Documented by: Atorvastatin Calcium (Atorvastatin 10 Mg Tab) 10 mg PO BEDTIME [facility] Calcitriol (Calcitrol 0.25 Mcg Cap) 0.5 mcg PO DAILY [facility] Last Admin: 09/07/20 08:15 Dose: 0.5 mcg Documented by: Cholecalciferol (Vitamin D 5,000 Unit Cap) 5,000 unit PO DAILY [facility] Last Admin: 09/07/20 08:15 Dose: 5,000 unit Documented by: Dextrose (D50w 25 Gm/50 Ml Syringe) 12.5 gm IV PRN PRN; Protocol PRN Reason: HYPOGLYCEMIA Docusate Sodium (Docusate Na 100 Mg Cap) 100 mg PO BID [facility] Last Admin: 09/07/20 08:16 Dose: 100 mg Documented by: Doxazosin Mesylate (Doxazosin 2 Mg Tab) 2 mg PO BEDTIME [facility] Last Admin: 09/06/20 20:41 Dose: 2 mg Documented by: Furosemide (Furosemide 40 Mg Tablet) 40 mg PO BIDL [facility] Glimepiride (Glimepiride 2 Mg Tablet) 4 mg PO DAILYAC [facility] Glucagon (Glucagon 1 Mg/Vial) 1 mg IM 1X PRN; Protocol PRN Reason: HYPOGLYCEMIA Heparin Sodium (Porcine) (Heparin 1,000 Unit/Ml Vial) 6,000 unit IV EVERY HD PRN PRN Reason: AFTER EACH Home Med (Linagliptin [Tradjenta]) 5 mg PO DAILY [facility] Remdesivir 100 mg/ Sodium (Chloride) 250 mls @ 500 mls/hr IV Q24H [facility] Stop: 09/10/20 16:29 Albumin Human (Albumin 25%) 50 mls @ 100 mls/hr IV EVERY HD [facility] Insulin Glargine (Insulin Glargine 100 Units/Ml) 10 units SQ BID [facility] Last Admin: 09/07/20 10:07 Dose: 10 units Documented by: Insulin Human Regular (Insulin -Regular Human 50 Unit/0.5 Ml Ml) 0 unit SQ ACHS [facility]; Protocol Last Admin: 09/07/20 17:07 Dose: 10 unit Documented by: Mannitol (Mannitol 25% 12.5 Gm/50 Ml Vial) 12.5 gm IV EVERY HD PRN PRN Reason: Titrate to SBP (MUST DEFINE) Melatonin (Melatonin 5 Mg Tablet) 5 mg PO BEDTIME [facility] Last Admin: 09/06/20 20:41 Dose: 5 mg Documented by: Methylprednisolone Sodium Succinate (Methylprednisolone 125 Mg Inj) 60 mg IV TID [facility] Last Admin: 09/07/20 13:34 Dose: 60 mg Documented by: Metoprolol Tartrate (Metoprolol Tar 50 Mg Tab) 50 mg PO BID [facility] Last Admin: 09/07/20 08:22 Dose: Not Given Documented by: Ondansetron HCl (Ondansetron 4 Mg/2 Ml Vial) 4 mg IV Q6HP PRN PRN Reason: NAUSEA / VOMITING Sodium Chloride (Flush Normal Saline 10 Ml) 10 ml IV BID [facility] Last Admin: 09/07/20 08:17 Dose: 10 ml Documented by: Thiamine HCl (Thiamine Hcl 100 Mg Tablet) 100 mg PO BID [facility] Last Admin: 09/07/20 08:15 Dose: 100 mg Documented by: Vitamin B Complex/Vit C/Folic Acid (Multivitamins,Therapeut 1 Tab) 1 tab PO DAILY [facility] Last Admin: 09/07/20 08:15 Dose: 1 tab Documented by: Zinc Sulfate (Zinc Sulfate 220 Mg Cap) 220 mg PO DAILY [facility] Last Admin: 09/07/20 08:15 Dose: 220 mg Documented by: Microbiology Results 09/06/20 00:48 Blood - Blood Aerobic Blood Culture - Preliminary No growth in 24 hours. 09/06/20 00:48 Blood - Blood Anaerobic Blood Culture - Preliminary No growth in 24 hours. Assessment/ Plan: Nephrology Persistent dyspnea and hypoxia worse with exertion. +Appetite No acute events overnight. Vitals, medications, blood work and imaging reviewed in the chart. General: In no apparent distress, Oriented x3, Cooperative HEENT: Atraumatic Neck: Supple, JVD distended Respiratory: Diminished Cardiovascular: Regular rate/rhythm, Edema Gastrointestinal: Soft and benign, Non-distended Musculoskeletal: No clubbing, No contractures Integumentary: No rashes, No cyanosis Neurological: Normal speech Laboratory Data (last 24 hrs) 09/06/20 09:09: PT 11.5, INR 1.00, APTT 33.8 09/06/20 09:09: Sodium 131 L, Potassium 4.6, BUN 66 H, Creatinine 12.20 H*, Glucose 80, Total Bilirubin 0.5, AST 120 H, ALT 51, Alkaline Phosphatase 128 H 09/06/20 00:48: WBC 5.00, Hgb 10.4 L, Hct 30.7 L, Plt Count 123 L Imagings Data: EXAM DESCRIPTION: Tejal Single View09/06/2020 9:47 am CLINICAL HISTORY: Shortness of breath COMPARISON: 2019 FINDINGS: Moderate bilateral pulmonary opacities. The heart is mildly enlarged IMPRESSION: Moderate bilateral pulmonary opacities could represent pneumonia or pulmonary edema Conclusions/Impression: A/P: Continue the current POC and Medications other than the changes listed. AM Labs PRN. Recommend daily weight. Please see the orders for complete details. ESRD -HD today Hyponatremia -Arrange for acute HD Acidosis -Arrange for acute HD HTN with CKD/ CHF -Continue Amlodipine -Continue Metoprolol and Doxazosin Diastolic CHF -HD with UF -Continue Metoprolol -Agree with furosemide DM II with CKD and Polyneuropathy -Continue Lantus Anemia in CKD -Continue Retacrit DANITA/ Secondary HyperPTH -Continue Vitamin D3 Rhabdomyolysis COVID PNA -Continue Solumedrol -Continue Remdesevir
[2020-09-07] MEDS: INSULIN GLARGINE 100 UNITS/ML SQ SCH (22:30)
[2020-09-07] MEDS: FUROSEMIDE 40 MG TABLET PO SCH (22:39)
[2020-09-07] MEDS: ATORVASTATIN 10 MG TAB PO SCH (22:39)
[2020-09-07] MEDS: MELATONIN 5 MG TABLET PO SCH (22:39)
[2020-09-07] MEDS: DOXAZOSIN 2 MG TAB PO SCH (22:39)
[2020-09-07] MEDS: Remdesivir 100 MG in NA CHLORIDE 0.9% 250 ML IV SCH (22:42)
[2020-09-08 03:56] LABS: Absolute Lymphocytes (CBC) 0.2 K/uL (0.7-4.9); Basophils % 0.1 % (0-1.3); Hematocrit 28.3 % (39.6-49.0); Lymphocytes % 2.3 % (15.3-44.8); MPV 8.9 fL (7.6-11.3); RBC Red Blood Cell Count 3.45 M/uL (4.33-5.43)
[2020-09-08 04:37] LABS: Albumin 2.4 g/dL (3.4-5.0); Bilirubin Total 0.4 mg/dL (0.2-1.0); Ferritin 5887.6 ng/mL (26-388); Magnesium 2.3 mg/dL (1.8-2.4); Potassium 4.1 mmol/L (3.5-5.1); Protein, Total 7.4 g/dL (6.4-8.2)
[2020-09-08 05:10] LABS: Blood Morphology Comment NOTED (NOT SEEN); Platelet Estimate ADEQ
[2020-09-08] MEDS: GLIMEPIRIDE 2 MG TABLET PO SCH (05:19)
--- NOTE | 2020-09-08 07:25 | RAD REPORT ---
EXAM DESCRIPTION: RAD - Chest Single View - 09/08/2020 7:09 am CLINICAL HISTORY: follow up COVID, COVID pneumonia COMPARISON: September 06 TECHNIQUE: AP portable chest image was obtained 09/08/2020 7:09 am . FINDINGS: There is been decreased density in the airspace opacification of the right upper lobe. Lef t lung field alveolar opacities also show a slight improvement. Trachea is midline. Cardiac silhouett e is diminished in size. Vascular engorgement has diminished. No measurable pleural effusion and no p neumothorax. IMPRESSION: Mild to moderate improvement in the bilateral COVID-19 pneumonia findings since September 2n d imaging.
[2020-09-08] MEDS: CALCITROL 0.25 MCG CAP PO SCH (07:56)
[2020-09-08] MEDS: MULTIVITAMINS,THERAPEUT 1 TAB PO SCH (07:56)
[2020-09-08] MEDS: FUROSEMIDE 40 MG TABLET PO SCH ×2 (07:57→16:20)
[2020-09-08] MEDS: ASCORBIC ACID 500 MG TABLET PO SCH ×2 (07:57→21:53)
[2020-09-08] MEDS: THIAMINE HCL 100 MG TABLET PO SCH ×2 (07:58→21:52)
[2020-09-08] MEDS: METOPROLOL TAR 50 MG TAB PO SCH ×2 (07:58→21:53)
[2020-09-08] MEDS: ZINC SULFATE 220 MG CAP PO SCH (07:59)
[2020-09-08] MEDS: VITAMIN D 5,000 UNIT CAP PO SCH (07:59)
[2020-09-08] MEDS: APIXABAN 2.5 MG TABLET PO SCH ×2 (07:59→21:53)
[2020-09-08] MEDS: AMLODIPINE 10 MG TAB PO SCH (07:59)
[2020-09-08] MEDS: METHYLPREDNISOLONE 125 MG INJ IV SCH ×3 (08:00→21:53)
[2020-09-08] MEDS: INSULIN GLARGINE 100 UNITS/ML SQ SCH ×2 (08:00→21:54)
[2020-09-08] MEDS: DOCUSATE NA 100 MG CAP PO SCH ×2 (08:01→21:00)
[2020-09-08] MEDS: INSULIN -REGULAR HUMAN 50 UNIT/0.5 ML ML SQ SCH ×4 (08:01→21:53)
[2020-09-08] MEDS: HOME MED 1 EA UNK (Linagliptin [Tradjenta] 5 MG Tablet) PO SCH (08:01)
--- NOTE | 2020-09-08 09:31 | P.PN ---
Subjective Date of Service: 09/08/20 Primary Care Provider: Dr. Davis; Nephrology-Dr. Garibay Chief Complaint: Respiratory failure Subjective: Other (Patient reports improvement. Still on high-flow oxygen.) Physical Examination - Vital Signs Temperature: 97.4 F Blood Pressure: 122/73 Pulse: 68 Respirations: 20 Pulse Ox (%): 88 Assessment & Plan Discharge Plan: Home Plan to discharge in: Greater than 2 days Physician Review Additional Text: Physical exam: Patient alert, cooperative. Currently on high-flow oxygen at 100%. Heart: Regular rate Lungs: Currently on high-flow oxygen Abdomen: Soft Extremities: Good range of motion. No focal deficits. Impression: Fever, dyspnea secondary to acute respiratory failure with hypoxia related to bilateral COVID pneumonia ESRD on hemodialysis DM Type 2 with hyperglycemia HTN Anemia of chronic disease Hyperlipidemia Plan: Fever, dyspnea secondary to acute respiratory failure with hypoxia related to bilateral COVID pneumonia: Patient reports improvement. Still no high-flow oxygen at 100%. Respiratory to continue to wean off. Continue with IV steroid, ivermectin, vitamin supplementation and Remdesivir. Continue monitor electrolytes closely. Continue with Eliquis to cover for risk of PE/DVT due to his positive COVID status. Patient received dialysis yesterday. Continue with dialysis and other medication. Continue to adjust diabetes medication for better control. Will continue monitor closely. Anticipate improvement over the next 48-72 hr. ESRD on hemodialysis: Nephrology consulted. Patient to continue with dialysis. Patient received dialysis yesterday. DM Type 2 with hyperglycemia: A1c elevated at 8.6. Glimepiride and Tradjenta restarted. Continue to adjust Lantus for better diabetic control. Siding scale in place. HTN: Home medication restarted. Will monitor and adjust appropriately. Anemia of chronic disease: Will monitor and adjust appropriately. Hyperlipidemia: Home medication restarted Time Spent Managing Pts Care (In Minutes): 55
[2020-09-08] MEDS: Remdesivir 100 MG in NA CHLORIDE 0.9% 250 ML IV SCH (16:00)
--- NOTE | 2020-09-08 18:03 | P.PN ---
Date of Service: 09/08/20 Vital Signs Temp Pulse Resp BP Pulse Ox 97.5 F 60 20 127/77 92 09/08/20 16:00 09/08/20 16:00 09/08/20 16:00 09/08/20 16:00 09/08/20 16:00 Medications Acetaminophen (Acetaminophen 500 Mg Tab) 500 mg PO Q4HP PRN PRN Reason: TEMP > 101' F Amlodipine Besylate (Amlodipine 10 Mg Tab) 10 mg PO DAILY [facility] Last Admin: 09/08/20 07:59 Dose: 10 mg Documented by: Apixaban (Apixaban 2.5 Mg Tablet) 2.5 mg PO BID [facility] Last Admin: 09/08/20 07:59 Dose: 2.5 mg Documented by: Ascorbic Acid (Ascorbic Acid 500 Mg Tablet) 500 mg PO BEDTIME [facility] Atorvastatin Calcium (Atorvastatin 10 Mg Tab) 10 mg PO BEDTIME [facility] Last Admin: 09/07/20 22:39 Dose: 10 mg Documented by: Budesonide (Budesonide 0.5 Mg/2 Ml Neb) 0.5 mg NEB BIDRESP [facility] Calcitriol (Calcitrol 0.25 Mcg Cap) 0.5 mcg PO DAILY [facility] Last Admin: 09/08/20 07:56 Dose: 0.5 mcg Documented by: Cholecalciferol (Vitamin D 5,000 Unit Cap) 5,000 unit PO DAILY [facility] Last Admin: 09/08/20 07:59 Dose: 5,000 unit Documented by: Dextrose (D50w 25 Gm/50 Ml Syringe) 12.5 gm IV PRN PRN; Protocol PRN Reason: HYPOGLYCEMIA Docusate Sodium (Docusate Na 100 Mg Cap) 100 mg PO BID [facility] Last Admin: 09/08/20 08:01 Dose: Not Given Documented by: Doxazosin Mesylate (Doxazosin 2 Mg Tab) 2 mg PO BEDTIME [facility] Furosemide (Furosemide 40 Mg Tablet) 40 mg PO BIDL [facility] Last Admin: 09/08/20 16:20 Dose: 40 mg Documented by: Glimepiride (Glimepiride 2 Mg Tablet) 4 mg PO DAILYAC [facility] Last Admin: 09/08/20 05:19 Dose: 4 mg Documented by: Glucagon (Glucagon 1 Mg/Vial) 1 mg IM 1X PRN; Protocol PRN Reason: HYPOGLYCEMIA Heparin Sodium (Porcine) (Heparin 1,000 Unit/Ml Vial) 6,000 unit IV EVERY HD PRN PRN Reason: AFTER EACH Home Med (Linagliptin [Tradjenta]) 5 mg PO DAILY [facility] Last Admin: 09/08/20 08:01 Dose: Not Given Documented by: Remdesivir 100 mg/ Sodium (Chloride) 250 mls @ 500 mls/hr IV Q24H [facility] Stop: 09/10/20 16:29 Last Admin: 09/08/20 16:00 Dose: 250 mls Documented by: Albumin Human (Albumin 25%) 50 mls @ 100 mls/hr IV EVERY HD [facility] Insulin Glargine (Insulin Glargine 100 Units/Ml) 20 units SQ BID [facility] Insulin Human Regular (Insulin -Regular Human 50 Unit/0.5 Ml Ml) 0 unit SQ ACHS [facility]; Protocol Last Admin: 09/08/20 16:20 Dose: 8 unit Documented by: Mannitol (Mannitol 25% 12.5 Gm/50 Ml Vial) 12.5 gm IV EVERY HD PRN PRN Reason: Titrate to SBP (MUST DEFINE) Melatonin (Melatonin 5 Mg Tablet) 5 mg PO BEDTIME [facility] Last Admin: 09/07/20 22:39 Dose: 5 mg Documented by: Methylprednisolone Sodium Succinate (Methylprednisolone 125 Mg Inj) 60 mg IV TID [facility] Last Admin: 09/08/20 13:55 Dose: 60 mg Documented by: Metoprolol Tartrate (Metoprolol Tar 50 Mg Tab) 50 mg PO BID [facility] Last Admin: 09/08/20 07:58 Dose: 50 mg Documented by: Ondansetron HCl (Ondansetron 4 Mg/2 Ml Vial) 4 mg IV Q6HP PRN PRN Reason: NAUSEA / VOMITING Sodium Chloride (Flush Normal Saline 10 Ml) 10 ml IV BID [facility] Last Admin: 09/08/20 08:01 Dose: 10 ml Documented by: Thiamine HCl (Thiamine Hcl 100 Mg Tablet) 100 mg PO BID [facility] Last Admin: 09/08/20 07:58 Dose: 100 mg Documented by: Vitamin B Complex/Vit C/Folic Acid (Multivitamins,Therapeut 1 Tab) 1 tab PO DAILY [facility] Last Admin: 09/08/20 07:56 Dose: 1 tab Documented by: Zinc Sulfate (Zinc Sulfate 220 Mg Cap) 220 mg PO DAILY [facility] Last Admin: 09/08/20 07:59 Dose: 220 mg Documented by: Microbiology Results 09/06/20 00:48 Blood - Blood Aerobic Blood Culture - Preliminary No growth in 24 hours. 09/06/20 00:48 Blood - Blood Anaerobic Blood Culture - Preliminary No growth in 24 hours. Assessment/ Plan: Nephrology Persistent dyspnea and hypoxia worse with exertion. +Appetite No acute events overnight. Vitals, medications, blood work and imaging reviewed in the chart. General: In no apparent distress, Oriented x3, Cooperative HEENT: Atraumatic Neck: Supple, JVD distended Respiratory: Diminished Cardiovascular: Regular rate/rhythm, Edema Gastrointestinal: Soft and benign, Non-distended Musculoskeletal: No clubbing, No contractures Integumentary: No rashes, No cyanosis Neurological: Normal speech Laboratory Data (last 24 hrs) 09/06/20 09:09: PT 11.5, INR 1.00, APTT 33.8 09/06/20 09:09: Sodium 131 L, Potassium 4.6, BUN 66 H, Creatinine 12.20 H*, Glucose 80, Total Bilirubin 0.5, AST 120 H, ALT 51, Alkaline Phosphatase 128 H 09/06/20 00:48: WBC 5.00, Hgb 10.4 L, Hct 30.7 L, Plt Count 123 L Imagings Data: EXAM DESCRIPTION: Tejal Single View09/06/2020 9:47 am CLINICAL HISTORY: Shortness of breath COMPARISON: 2019 FINDINGS: Moderate bilateral pulmonary opacities. The heart is mildly enlarged IMPRESSION: Moderate bilateral pulmonary opacities could represent pneumonia or pulmonary edema Conclusions/Impression: A/P: Continue the current POC and Medications other than the changes listed. AM Labs PRN. Recommend daily weight. Please see the orders for complete details. ESRD TTS -HD today Hyponatremia -HD TIW Acidosis -HD TIW HTN with CKD/ CHF -Continue Amlodipine -Continue Metoprolol -Holding parameter for Doxazosin Diastolic CHF -HD TIW -Continue Metoprolol -Continue furosemide DM II with CKD and Polyneuropathy -Continue Lantus Anemia in CKD -Continue Retacrit DANITA/ Secondary HyperPTH -Continue Vitamin D3 Rhabdomyolysis COVID PNA -Continue Solumedrol -Continue Remdesevir
[2020-09-08] MEDS ORDERED: D50W 25 GM/50 ML VIAL IV PRN (19:00)
[2020-09-08] MEDS: BUDESONIDE 0.5 MG/2 ML NEB NEB SCH (20:00)
[2020-09-08] MEDS: DOXAZOSIN 2 MG TAB PO SCH (21:52)
[2020-09-08] MEDS: MELATONIN 5 MG TABLET PO SCH (21:52)
[2020-09-08] MEDS: ATORVASTATIN 10 MG TAB PO SCH (21:53)
[2020-09-09] MEDS ORDERED: Levofloxacin500mg IV 500 MG/100 ML BAG IV ONE (01:42)
[2020-09-09 04:02] LABS: Absolute Lymphocytes (CBC) 0.2 K/uL (0.7-4.9); Basophils % 0.2 % (0-1.3); Hematocrit 29.7 % (39.6-49.0); Lymphocytes % 3.1 % (15.3-44.8); MPV 8.9 fL (7.6-11.3); RBC Red Blood Cell Count 3.58 M/uL (4.33-5.43)
[2020-09-09 04:46] LABS: Albumin 2.2 g/dL (3.4-5.0); Bilirubin Total 0.4 mg/dL (0.2-1.0); C-Reactive Protein 84.1 mg/L (<3.00); Ferritin 3931.1 ng/mL (26-388); Magnesium 2.2 mg/dL (1.8-2.4); Potassium 4.3 mmol/L (3.5-5.1); Protein, Total 7.1 g/dL (6.4-8.2)
[2020-09-09] MEDS: GLIMEPIRIDE 2 MG TABLET PO SCH (05:10)
[2020-09-09] MEDS: BUDESONIDE 0.5 MG/2 ML NEB NEB SCH (07:23)
[2020-09-09] MEDS: INSULIN -REGULAR HUMAN 50 UNIT/0.5 ML ML SQ SCH ×4 (07:54→21:13)
[2020-09-09] MEDS: INSULIN GLARGINE 100 UNITS/ML SQ SCH (07:55)
[2020-09-09] MEDS: CALCITROL 0.25 MCG CAP PO SCH (07:56)
[2020-09-09] MEDS: METOPROLOL TAR 50 MG TAB PO SCH ×2 (07:56→21:15)
[2020-09-09] MEDS: VITAMIN D 5,000 UNIT CAP PO SCH (07:56)
[2020-09-09] MEDS: CALCIUM ACETATE 667 MG TAB PO SCH ×3 (07:56→16:43)
[2020-09-09] MEDS: MULTIVITAMINS,THERAPEUT 1 TAB PO SCH (07:56)
[2020-09-09] MEDS: FUROSEMIDE 40 MG TABLET PO SCH ×2 (07:56→16:43)
[2020-09-09] MEDS: ZINC SULFATE 220 MG CAP PO SCH (07:57)
[2020-09-09] MEDS: APIXABAN 2.5 MG TABLET PO SCH ×2 (07:57→21:15)
[2020-09-09] MEDS: AMLODIPINE 10 MG TAB PO SCH (07:57)
[2020-09-09] MEDS: METHYLPREDNISOLONE 125 MG INJ IV SCH ×3 (07:58→21:16)
[2020-09-09] MEDS: THIAMINE HCL 100 MG TABLET PO SCH ×2 (07:58→21:14)
[2020-09-09] MEDS: DOCUSATE NA 100 MG CAP PO SCH ×2 (07:59→21:00)
[2020-09-09] MEDS: HOME MED 1 EA UNK (Linagliptin [Tradjenta] 5 MG Tablet) PO SCH (07:59)
[2020-09-09] MEDS: EPOETIN ALFA-EPBX 4,000 UNIT/ML VIAL SQ SCH (09:35)
--- NOTE | 2020-09-09 12:57 | P.PN ---
Subjective Date of Service: 09/09/20 Primary Care Provider: Dr. Davis; Nephrology-Dr. Garibay Chief Complaint: Respiratory failure Subjective: Improving Physical Examination - Vital Signs Temperature: 97.7 F Blood Pressure: 131/79 Pulse: 61 Respirations: 18 Pulse Ox (%): 87 Assessment & Plan Discharge Plan: Home Plan to discharge in: 72 Hours Physician Review Additional Text: Physical exam: Patient alert, cooperative. Currently on high-flow oxygen at 95%. Heart: Regular rate Lungs: Currently on high-flow oxygen Abdomen: Soft Extremities: Good range of motion. No focal deficits. Impression: Fever, dyspnea secondary to acute respiratory failure with hypoxia related to bilateral COVID pneumonia ESRD on hemodialysis DM Type 2 with hyperglycemia HTN Anemia of chronic disease Hyperlipidemia Plan: Fever, dyspnea secondary to acute respiratory failure with hypoxia related to bilateral COVID pneumonia: Patient reports improvement. Less oxygen requirement noted. Ferritin and CRP improved. Respiratory to continue to wean off. Continue with IV steroid, ivermectin, vitamin supplementation and Remdesivir. Continue monitor electrolytes closely. Continue with Eliquis to cover for risk of PE/DVT due to his positive COVID status. Patient received dialysis yesterday. Continue with dialysis and other medication. Continue to adjust diabetes medication for better control. Will continue monitor closely. Anticipate improvement over the next 48-72 hr. ESRD on hemodialysis: Nephrology consulted. Patient to continue with dialysis. Patient received dialysis yesterday. DM Type 2 with hyperglycemia: A1c elevated at 8.6. Glimepiride and Tradjenta restarted. Continue to adjust Lantus for better diabetic control. Siding scale in place. HTN: Home medication restarted. Will monitor and adjust appropriately. Anemia of chronic disease: Will monitor and adjust appropriately. Hyperlipidemia: Home medication restarted Time Spent Managing Pts Care (In Minutes): 55
[2020-09-09] MEDS: Remdesivir 100 MG in NA CHLORIDE 0.9% 250 ML IV SCH (16:00)
[2020-09-09] MEDS ORDERED: INSULIN GLARGINE 100 UNITS/ML SQ SCH (21:00)
[2020-09-09] MEDS: MELATONIN 5 MG TABLET PO SCH (21:14)
[2020-09-09] MEDS: ATORVASTATIN 10 MG TAB PO SCH (21:14)
[2020-09-09] MEDS: DOXAZOSIN 2 MG TAB PO SCH (21:14)
[2020-09-09] MEDS: ASCORBIC ACID 500 MG TABLET PO SCH (21:15)
--- NOTE | 2020-09-09 22:03 | P.PN ---
Date of Service: 09/09/20 Vital Signs Temp Pulse Resp BP Pulse Ox 98.1 F 66 12 143/81 H 90 L 09/09/20 16:00 09/09/20 21:15 09/09/20 16:00 09/09/20 21:15 09/09/20 16:00 Medications Acetaminophen (Acetaminophen 500 Mg Tab) 500 mg PO Q4HP PRN PRN Reason: TEMP > 101' F Amlodipine Besylate (Amlodipine 10 Mg Tab) 10 mg PO DAILY [facility] Last Admin: 09/09/20 07:57 Dose: 10 mg Documented by: Apixaban (Apixaban 2.5 Mg Tablet) 2.5 mg PO BID [facility] Last Admin: 09/09/20 21:15 Dose: 2.5 mg Documented by: Ascorbic Acid (Ascorbic Acid 500 Mg Tablet) 500 mg PO BEDTIME [facility] Last Admin: 09/09/20 21:15 Dose: 500 mg Documented by: Atorvastatin Calcium (Atorvastatin 10 Mg Tab) 10 mg PO BEDTIME [facility] Last Admin: 09/09/20 21:14 Dose: 10 mg Documented by: Calcitriol (Calcitrol 0.25 Mcg Cap) 0.5 mcg PO DAILY [facility] Last Admin: 09/09/20 07:56 Dose: 0.5 mcg Documented by: Calcium Acetate (Ca Acetate 667 Mg Cap) 1,334 mg PO TIDWM [facility] Last Admin: 09/09/20 16:43 Dose: 1,334 mg Documented by: Cholecalciferol (Vitamin D 5,000 Unit Cap) 5,000 unit PO DAILY [facility] Last Admin: 09/09/20 07:56 Dose: 5,000 unit Documented by: Dextrose (D50w 25 Gm/50 Ml Vial) 12.5 gm IV PRN PRN; Protocol PRN Reason: HYPOGLYCEMIA Docusate Sodium (Docusate Na 100 Mg Cap) 100 mg PO BID [facility] Last Admin: 09/09/20 21:00 Dose: Not Given Documented by: Doxazosin Mesylate (Doxazosin 2 Mg Tab) 2 mg PO BEDTIME [facility] Last Admin: 09/09/20 21:14 Dose: 2 mg Documented by: Furosemide (Furosemide 40 Mg Tablet) 40 mg PO BIDL [facility] Last Admin: 09/09/20 16:43 Dose: 40 mg Documented by: Glimepiride (Glimepiride 2 Mg Tablet) 4 mg PO DAILYAC [facility] Last Admin: 09/09/20 05:10 Dose: 4 mg Documented by: Glucagon (Glucagon 1 Mg/Vial) 1 mg IM 1X PRN; Protocol PRN Reason: HYPOGLYCEMIA Heparin Sodium (Porcine) (Heparin 1,000 Unit/Ml Vial) 6,000 unit IV EVERY HD PRN PRN Reason: AFTER EACH Home Med (Linagliptin [Tradjenta]) 5 mg PO DAILY [facility] Last Admin: 09/09/20 07:59 Dose: Not Given Documented by: Remdesivir 100 mg/ Sodium (Chloride) 250 mls @ 500 mls/hr IV Q24H [facility] Stop: 09/10/20 16:29 Last Admin: 09/09/20 16:00 Dose: 250 mls Documented by: Albumin Human (Albumin 25%) 50 mls @ 100 mls/hr IV EVERY HD [facility] Insulin Glargine (Insulin Glargine 100 Units/Ml) 25 units SQ BID [facility] Insulin Human Regular (Insulin -Regular Human 50 Unit/0.5 Ml Ml) 0 unit SQ ACHS [facility]; Protocol Last Admin: 09/09/20 21:13 Dose: 12 unit Documented by: Mannitol (Mannitol 25% 12.5 Gm/50 Ml Vial) 12.5 gm IV EVERY HD PRN PRN Reason: Titrate to SBP (MUST DEFINE) Melatonin (Melatonin 5 Mg Tablet) 5 mg PO BEDTIME [facility] Last Admin: 09/09/20 21:14 Dose: 5 mg Documented by: Methylprednisolone Sodium Succinate (Methylprednisolone 125 Mg Inj) 60 mg IV TID [facility] Last Admin: 09/09/20 21:16 Dose: 60 mg Documented by: Metoprolol Tartrate (Metoprolol Tar 50 Mg Tab) 50 mg PO BID [facility] Last Admin: 09/09/20 21:15 Dose: 50 mg Documented by: Ondansetron HCl (Ondansetron 4 Mg/2 Ml Vial) 4 mg IV Q6HP PRN PRN Reason: NAUSEA / VOMITING Sodium Chloride (Flush Normal Saline 10 Ml) 10 ml IV BID [facility] Last Admin: 09/09/20 21:16 Dose: 10 ml Documented by: Thiamine HCl (Thiamine Hcl 100 Mg Tablet) 100 mg PO BID [facility] Last Admin: 09/09/20 21:14 Dose: 100 mg Documented by: Vitamin B Complex/Vit C/Folic Acid (Multivitamins,Therapeut 1 Tab) 1 tab PO DAILY [facility] Last Admin: 09/09/20 07:56 Dose: 1 tab Documented by: Zinc Sulfate (Zinc Sulfate 220 Mg Cap) 220 mg PO DAILY [facility] Last Admin: 09/09/20 07:57 Dose: 220 mg Documented by: Microbiology Results 09/06/20 00:48 Blood - Blood Aerobic Blood Culture - Preliminary No growth in 24 hours. 09/06/20 00:48 Blood - Blood Anaerobic Blood Culture - Preliminary No growth in 24 hours. Assessment/ Plan: Nephrology Persistent dyspnea and hypoxia worse but feeling a litter better today. +Appetite No acute events overnight. Vitals, medications, blood work and imaging reviewed in the chart. General: In no apparent distress, Oriented x3, Cooperative HEENT: Atraumatic Neck: Supple, JVD distended Respiratory: Diminished Cardiovascular: Regular rate/rhythm, Edema Gastrointestinal: Soft and benign, Non-distended Musculoskeletal: No clubbing, No contractures Integumentary: No rashes, No cyanosis Neurological: Normal speech Laboratory Data (last 24 hrs) 09/06/20 09:09: PT 11.5, INR 1.00, APTT 33.8 09/06/20 09:09: Sodium 131 L, Potassium 4.6, BUN 66 H, Creatinine 12.20 H*, Glucose 80, Total Bilirubin 0.5, AST 120 H, ALT 51, Alkaline Phosphatase 128 H 09/06/20 00:48: WBC 5.00, Hgb 10.4 L, Hct 30.7 L, Plt Count 123 L Imagings Data: EXAM DESCRIPTION: Tejal Single View09/06/2020 9:47 am CLINICAL HISTORY: Shortness of breath COMPARISON: 2019 FINDINGS: Moderate bilateral pulmonary opacities. The heart is mildly enlarged IMPRESSION: Moderate bilateral pulmonary opacities could represent pneumonia or pulmonary edema Conclusions/Impression: A/P: Continue the current POC and Medications other than the changes listed. AM Labs PRN. Recommend daily weight. Please see the orders for complete details. ESRD TTS -HD Saturday Hyponatremia -HD TIW Acidosis -HD TIW HTN with CKD/ CHF -Continue Amlodipine -Continue Metoprolol -Holding parameter for Doxazosin Diastolic CHF -HD TIW -Continue Metoprolol -Continue furosemide DM II with CKD and Polyneuropathy -Continue Lantus Anemia in CKD -Continue Retacrit DANITA/ Secondary HyperPTH -Continue Vitamin D3 Rhabdomyolysis COVID PNA -Continue Solumedrol -Continue Remdesevir
[2020-09-10] MEDS: GLIMEPIRIDE 2 MG TABLET PO SCH (05:00)
[2020-09-10] MEDS: HOME MED 1 EA UNK (Linagliptin [Tradjenta] 5 MG Tablet) PO SCH (09:00)
[2020-09-10] MEDS: AMLODIPINE 10 MG TAB PO SCH (09:00)
[2020-09-10] MEDS: DOCUSATE NA 100 MG CAP PO SCH ×2 (09:00→21:00)
[2020-09-10] MEDS ORDERED: Levofloxacin 250mg IV 250 MG/50 ML BAG IV SCH (09:00)
[2020-09-10] MEDS: INSULIN GLARGINE 100 UNITS/ML SQ SCH ×2 (09:00→21:01)
[2020-09-10] MEDS: METOPROLOL TAR 50 MG TAB PO SCH ×2 (09:00→20:58)
[2020-09-10] MEDS: CALCITROL 0.25 MCG CAP PO SCH (09:01)
[2020-09-10] MEDS: FUROSEMIDE 40 MG TABLET PO SCH ×2 (09:01→17:49)
[2020-09-10] MEDS: CALCIUM ACETATE 667 MG TAB PO SCH ×3 (09:01→17:49)
[2020-09-10] MEDS: VITAMIN D 5,000 UNIT CAP PO SCH (09:01)
[2020-09-10] MEDS: APIXABAN 2.5 MG TABLET PO SCH ×2 (09:02→20:56)
[2020-09-10] MEDS: MULTIVITAMINS,THERAPEUT 1 TAB PO SCH (09:02)
[2020-09-10] MEDS: THIAMINE HCL 100 MG TABLET PO SCH ×2 (09:05→21:00)
[2020-09-10] MEDS: INSULIN -REGULAR HUMAN 50 UNIT/0.5 ML ML SQ SCH ×4 (09:06→21:02)
[2020-09-10] MEDS: METHYLPREDNISOLONE 125 MG INJ IV SCH ×3 (09:07→21:00)
--- NOTE | 2020-09-10 10:12 | P.PN ---
Subjective Date of Service: 09/10/20 Primary Care Provider: Dr. Davis; Nephrology-Dr. Garibay Chief Complaint: Respiratory failure Subjective: Improving (Patient reports improvement.) Physical Examination - Vital Signs Temperature: 97.8 F Blood Pressure: 135/69 Pulse: 62 Respirations: 18 Pulse Ox (%): 92 Assessment & Plan Discharge Plan: Home Plan to discharge in: Greater than 2 days Physician Review Additional Text: Physical exam: Patient alert, cooperative. Currently on high-flow oxygen at 95-100%. Patient reports improvement. Heart: Regular rate Lungs: Currently on high-flow oxygen Abdomen: Soft Extremities: Good range of motion. No focal deficits. Impression: Fever, dyspnea secondary to acute respiratory failure with hypoxia related to bilateral COVID pneumonia ESRD on hemodialysis DM Type 2 with hyperglycemia HTN Anemia of chronic disease Hyperlipidemia Plan: Fever, dyspnea secondary to acute respiratory failure with hypoxia related to bilateral COVID pneumonia: Patient reports improvement. Continue to follow CRP and ferritin. Will have respiratory continue to wean down high-flow oxygen. Will recheck chest x-ray tomorrow. CRP and ferritin improved yesterday. Continue with IV steroid, vitamin supplementation and Remdesivir. Continue monitor electrolytes closely. Continue with Eliquis to cover for risk of PE/DVT due to his positive COVID status. Patient is scheduled for dialysis today. Continue with dialysis and other medication. Continue to adjust diabetes medication for better control. Will continue monitor closely. Anticipate improvement over the next 48-72 hr. ESRD on hemodialysis: Nephrology consulted. Patient to continue with dialysis. Patient received dialysis yesterday. DM Type 2 with hyperglycemia: A1c elevated at 8.6. Continue with medication. Continue to adjust Lantus for better diabetic control. Siding scale in place. HTN: Home medication restarted. Will monitor and adjust appropriately. Anemia of chronic disease: Will monitor and adjust appropriately. Hyperlipidemia: Home medication restarted Time Spent Managing Pts Care (In Minutes): 55
[2020-09-10 11:42] LABS: C-Reactive Protein 48.6 mg/L (<3.00); Ferritin 2184.1 ng/mL (26-388)
--- NOTE | 2020-09-10 11:59 | P.PN ---
Subjective Date of Service: 09/10/20 Primary Care Provider: Dr. Davis; Nephrology-Dr. Garibay Chief Complaint: Respiratory failure patient still requiring oxygen supplement. now coughing better. feels his breathing is improved and opening up. he is able to answer questions and talk comfortably with me. alert/mentation is good. no pain. vs reviewed. sbp in 130 range lungs coarse/few wheezes/imporves with cough [facility] regular abd soft ext no edema left arm av access labs reviewed from yesterday. bicarb/k ok. hb greater than 10 a/p: esrd/covid 19 pneumonia: has hd planned for today. tts schedule. volume status seems ok. bp ok. respirtary failure mainly due to covid 19 pneumonia. improving but still frail condition. lytes ok/bicarb and h/h are ok. Physical Examination - Vital Signs Temperature: 97.8 F Blood Pressure: 135/69 Pulse: 62 Respirations: 18 Pulse Ox (%): 92 Assessment & Plan Physician Review Additional Text: Physical exam: Patient alert, cooperative. Currently on high-flow oxygen at 95-100%. Patient reports improvement. Heart: Regular rate Lungs: Currently on high-flow oxygen Abdomen: Soft Extremities: Good range of motion. No focal deficits. Impression: Fever, dyspnea secondary to acute respiratory failure with hypoxia related to bilateral COVID pneumonia ESRD on hemodialysis DM Type 2 with hyperglycemia HTN Anemia of chronic disease Hyperlipidemia Plan: Fever, dyspnea secondary to acute respiratory failure with hypoxia related to bilateral COVID pneumonia: Patient reports improvement. Continue to follow CRP and ferritin. Will have respiratory continue to wean down high-flow oxygen. Will recheck chest x-ray tomorrow. CRP and ferritin improved yesterday. Continue with IV steroid, vitamin supplementation and Remdesivir. Continue monitor electrolytes closely. Continue with Eliquis to cover for risk of PE/DVT due to his positive COVID status. Patient is scheduled for dialysis today. Continue with dialysis and other medication. Continue to adjust diabetes medication for better control. Will continue monitor closely. Anticipate improvement over the next 48-72 hr. ESRD on hemodialysis: Nephrology consulted. Patient to continue with dialysis. Patient received dialysis yesterday. DM Type 2 with hyperglycemia: A1c elevated at 8.6. Continue with medication. Continue to adjust Lantus for better diabetic control. Siding scale in place. HTN: Home medication restarted. Will monitor and adjust appropriately. Anemia of chronic disease: Will monitor and adjust appropriately. Hyperlipidemia: Home medication restarted
[2020-09-10] MEDS: ZINC SULFATE 220 MG CAP PO SCH (12:15)
[2020-09-10] MEDS: Remdesivir 100 MG in NA CHLORIDE 0.9% 250 ML IV SCH (17:49)
[2020-09-10] MEDS: DOXAZOSIN 2 MG TAB PO SCH (20:56)
[2020-09-10] MEDS: MELATONIN 5 MG TABLET PO SCH (20:57)
[2020-09-10] MEDS: ATORVASTATIN 10 MG TAB PO SCH (20:59)
[2020-09-10] MEDS: ASCORBIC ACID 500 MG TABLET PO SCH (21:00)
[2020-09-11 05:50] LABS: C-Reactive Protein 36.4 mg/L (<3.00); Ferritin 1641.2 ng/mL (26-388); Magnesium 2.3 mg/dL (1.8-2.4); Potassium 4.7 mmol/L (3.5-5.1)
[2020-09-11] MEDS: GLIMEPIRIDE 2 MG TABLET PO SCH (06:15)
[2020-09-11] MEDS: MULTIVITAMINS,THERAPEUT 1 TAB PO SCH (08:25)
[2020-09-11] MEDS: CALCITROL 0.25 MCG CAP PO SCH (08:25)
[2020-09-11] MEDS: FUROSEMIDE 40 MG TABLET PO SCH ×2 (08:25→16:13)
[2020-09-11] MEDS: VITAMIN D 5,000 UNIT CAP PO SCH (08:25)
[2020-09-11] MEDS: THIAMINE HCL 100 MG TABLET PO SCH ×2 (08:25→21:54)
[2020-09-11] MEDS: METOPROLOL TAR 50 MG TAB PO SCH ×2 (08:25→21:54)
[2020-09-11] MEDS: APIXABAN 2.5 MG TABLET PO SCH ×2 (08:25→21:56)
[2020-09-11] MEDS: DOCUSATE NA 100 MG CAP PO SCH ×3 (08:26→21:00)
[2020-09-11] MEDS: ZINC SULFATE 220 MG CAP PO SCH (08:26)
[2020-09-11] MEDS: AMLODIPINE 10 MG TAB PO SCH (08:26)
[2020-09-11] MEDS: METHYLPREDNISOLONE 125 MG INJ IV SCH ×3 (08:26→21:58)
[2020-09-11] MEDS: CALCIUM ACETATE 667 MG TAB PO SCH ×3 (08:26→16:13)
[2020-09-11] MEDS: INSULIN GLARGINE 100 UNITS/ML SQ SCH ×2 (08:27→21:56)
[2020-09-11] MEDS: HOME MED 1 EA UNK (Linagliptin [Tradjenta] 5 MG Tablet) PO SCH (08:27)
[2020-09-11] MEDS: INSULIN -REGULAR HUMAN 50 UNIT/0.5 ML ML SQ SCH ×4 (08:28→21:57)
--- NOTE | 2020-09-11 12:22 | RAD REPORT ---
EXAM DESCRIPTION: RAD - Chest Single View - 09/11/2020 6:40 am CLINICAL HISTORY: follow up COVID Chest pain. COMPARISON: Chest Single View dated 09/08/2020; Chest Single View dated 09/06/2020; Chest Single View da kamila 11/25/2019; Chest Single View dated 09/25/2018 FINDINGS: Portable technique limits examination quality. Fractional improvement is seen in bilateral pulmonary opacities since 09/08/2020 study. The heart is upper limit normal in size. No displaced fractures. IMPRESSION: Fractional improvement in bilateral pulmonary opacities since comparative study.
--- NOTE | 2020-09-11 14:09 | P.PN ---
Subjective Date of Service: 09/11/20 Primary Care Provider: Dr. Davis; Nephrology-Dr. Garibay Chief Complaint: Respiratory failure Subjective: Improving, Doing well Physical Examination - Vital Signs Temperature: 98.1 F Blood Pressure: 166/84 Pulse: 73 Respirations: 16 Pulse Ox (%): 97 - Studies Microbiology Data (last 24 hrs): 09/06/20 00:48 Blood - Blood Aerobic Blood Culture - Final No growth in 5 days. 09/06/20 00:48 Blood - Blood Anaerobic Blood Culture - Final No growth in 5 days. Assessment & Plan Discharge Plan: Home Plan to discharge in: Greater than 2 days Physician Review Additional Text: Physical exam: Patient alert, cooperative. Currently on high-flow oxygen at 95-100%. Patient reports improvement. Heart: Regular rate Lungs: Currently on high-flow oxygen Abdomen: Soft Extremities: Good range of motion. No focal deficits. Impression: Fever, dyspnea secondary to acute respiratory failure with hypoxia related to bilateral COVID pneumonia ESRD on hemodialysis DM Type 2 with hyperglycemia HTN Anemia of chronic disease Hyperlipidemia Plan: Fever, dyspnea secondary to acute respiratory failure with hypoxia related to bilateral COVID pneumonia: X-ray shows improvement. Patient also reports improvement. Still requiring high-flow oxygen at high rate. Will have respiratory continue to wean down. Inflammatory markers also show improvement. Continue to follow CRP and ferritin. Continue with IV steroid, vitamin supplementation and Remdesivir. Continue monitor electrolytes closely. Continue with Eliquis to cover for risk of PE/DVT due to his positive COVID status. Encourage incentive spirometer. Encourage proning and ambulation. I will turn the service over to the hospitalist team tomorrow. I will go plan of care with him. Anticipate improvement over the next 48-72 hr. ESRD on hemodialysis: Nephrology consulted. Continue with dialysis as directed. DM Type 2 with hyperglycemia: A1c elevated at 8.6. Continue with medication. Continue to adjust Lantus for better diabetic control. Siding scale in place. HTN: Home medication restarted. Will monitor and adjust appropriately. Anemia of chronic disease: Will monitor and adjust appropriately. Hyperlipidemia: Home medication restarted Time Spent Managing Pts Care (In Minutes): 55
[2020-09-11] MEDS: MELATONIN 5 MG TABLET PO SCH (21:53)
[2020-09-11] MEDS: ASCORBIC ACID 500 MG TABLET PO SCH (21:53)
[2020-09-11] MEDS: DOXAZOSIN 2 MG TAB PO SCH (21:55)
[2020-09-11] MEDS: ATORVASTATIN 10 MG TAB PO SCH (21:55)
[2020-09-12 04:50] LABS: C-Reactive Protein 27.5 mg/L (<3.00); Ferritin 1465.2 ng/mL (26-388); Magnesium 2.5 mg/dL (1.8-2.4); Potassium 4.6 mmol/L (3.5-5.1)
[2020-09-12] MEDS: GLIMEPIRIDE 2 MG TABLET PO SCH ×2 (05:58→06:18)
[2020-09-12] MEDS: INSULIN -REGULAR HUMAN 50 UNIT/0.5 ML ML SQ SCH ×4 (07:28→21:40)
[2020-09-12] MEDS: HOME MED 1 EA UNK (Linagliptin [Tradjenta] 5 MG Tablet) PO SCH (09:00)
[2020-09-12] MEDS: INSULIN GLARGINE 100 UNITS/ML SQ SCH ×2 (09:00→21:41)
[2020-09-12] MEDS: DOCUSATE NA 100 MG CAP PO SCH ×2 (09:00→21:00)
[2020-09-12] MEDS: CALCIUM ACETATE 667 MG TAB PO SCH ×3 (09:17→16:59)
[2020-09-12] MEDS: THIAMINE HCL 100 MG TABLET PO SCH ×2 (09:17→21:42)
[2020-09-12] MEDS: VITAMIN D 5,000 UNIT CAP PO SCH (09:17)
[2020-09-12] MEDS: APIXABAN 2.5 MG TABLET PO SCH ×2 (09:18→21:39)
[2020-09-12] MEDS: CALCITROL 0.25 MCG CAP PO SCH (09:18)
[2020-09-12] MEDS: MULTIVITAMINS,THERAPEUT 1 TAB PO SCH (09:19)
[2020-09-12] MEDS: FUROSEMIDE 40 MG TABLET PO SCH ×2 (09:19→16:59)
[2020-09-12] MEDS: ZINC SULFATE 220 MG CAP PO SCH (09:19)
[2020-09-12] MEDS: METOPROLOL TAR 50 MG TAB PO SCH ×2 (09:20→21:39)
[2020-09-12] MEDS: AMLODIPINE 10 MG TAB PO SCH (09:20)
[2020-09-12] MEDS: METHYLPREDNISOLONE 125 MG INJ IV SCH ×3 (09:21→21:39)
[2020-09-12] MEDS: EPOETIN ALFA-EPBX 4,000 UNIT/ML VIAL SQ SCH (13:02)
[2020-09-12 16:22] VITALS: BMI 36.3
--- NOTE | 2020-09-12 16:51 | P.PN ---
Subjective Date of Service: 09/12/20 Primary Care Provider: Dr. Davis; Nephrology-Dr. Garibay Chief Complaint: Respiratory failure Subjective: Improving ( patient is still requiring high concentrations of oxygen) Review of Systems General: Weakness Respiratory: Shortness of Breath Physical Examination - Vital Signs Temperature: 98.2 F Blood Pressure: 157/88 Pulse: 71 Respirations: 20 Pulse Ox (%): 96 Assessment & Plan - Problems (Diagnosis) (1) Acute respiratory failure due to severe acute respiratory syndrome coronavirus 2 (SARS-CoV-2) infection Current Visit: Yes Status: Acute Plan: respiratory failure from maurer virus continue titrate to sat 88-90% repeat dose of ivermectin chest x-ray does not show any significant progression patient is on hemodialysis labs reviewed
[2020-09-12] MEDS ORDERED: IVERMECTIN 3 MG TABLET PO ONE (18:00)
--- NOTE | 2020-09-12 21:30 | P.PN ---
Date of Service: 09/12/20 Vital Signs Temp Pulse Resp BP Pulse Ox 98.4 F 73 16 160/93 H 92 09/12/20 20:00 09/12/20 20:00 09/12/20 20:00 09/12/20 20:00 09/12/20 20:00 Medications Acetaminophen (Acetaminophen 500 Mg Tab) 500 mg PO Q4HP PRN PRN Reason: TEMP > 101' F Amlodipine Besylate (Amlodipine 10 Mg Tab) 10 mg PO DAILY [facility] Last Admin: 09/12/20 09:20 Dose: 10 mg Documented by: Apixaban (Apixaban 2.5 Mg Tablet) 2.5 mg PO BID [facility] Last Admin: 09/12/20 09:18 Dose: 2.5 mg Documented by: Ascorbic Acid (Ascorbic Acid 500 Mg Tablet) 500 mg PO BEDTIME [facility] Last Admin: 09/11/20 21:53 Dose: 500 mg Documented by: Atorvastatin Calcium (Atorvastatin 10 Mg Tab) 10 mg PO BEDTIME [facility] Last Admin: 09/11/20 21:55 Dose: 10 mg Documented by: Calcitriol (Calcitrol 0.25 Mcg Cap) 0.5 mcg PO DAILY [facility] Last Admin: 09/12/20 09:18 Dose: 0.5 mcg Documented by: Calcium Acetate (Ca Acetate 667 Mg Cap) 1,334 mg PO TIDWM [facility] Last Admin: 09/12/20 16:59 Dose: 1,334 mg Documented by: Cholecalciferol (Vitamin D 5,000 Unit Cap) 5,000 unit PO DAILY [facility] Last Admin: 09/12/20 09:17 Dose: 5,000 unit Documented by: Dextrose (D50w 25 Gm/50 Ml Vial) 12.5 gm IV PRN PRN; Protocol PRN Reason: HYPOGLYCEMIA Docusate Sodium (Docusate Na 100 Mg Cap) 100 mg PO BID [facility] Last Admin: 09/12/20 09:00 Dose: Not Given Documented by: Doxazosin Mesylate (Doxazosin 2 Mg Tab) 2 mg PO BEDTIME [facility] Last Admin: 09/11/20 21:55 Dose: 2 mg Documented by: Furosemide (Furosemide 40 Mg Tablet) 40 mg PO BIDL [facility] Last Admin: 09/12/20 16:59 Dose: 40 mg Documented by: Glimepiride (Glimepiride 2 Mg Tablet) 4 mg PO DAILYAC [facility] Last Admin: 09/12/20 06:18 Dose: Not Given Documented by: Glucagon (Glucagon 1 Mg/Vial) 1 mg IM 1X PRN; Protocol PRN Reason: HYPOGLYCEMIA Heparin Sodium (Porcine) (Heparin 1,000 Unit/Ml Vial) 3,000 unit IV EVERY HD [facility] Stop: 09/17/20 09:01 Last Admin: 09/12/20 10:00 Dose: 3,000 unit Documented by: Home Med (Linagliptin [Tradjenta]) 5 mg PO DAILY [facility] Last Admin: 09/12/20 09:00 Dose: Not Given Documented by: Albumin Human (Albumin 25%) 50 mls @ 100 mls/hr IV EVERY HD [facility] Insulin Glargine (Insulin Glargine 100 Units/Ml) 30 units SQ BID [facility] Last Admin: 09/12/20 09:00 Dose: Not Given Documented by: Insulin Human Regular (Insulin -Regular Human 50 Unit/0.5 Ml Ml) 0 unit SQ ACHS [facility]; Protocol Last Admin: 09/12/20 16:59 Dose: 4 unit Documented by: Mannitol (Mannitol 25% 12.5 Gm/50 Ml Vial) 12.5 gm IV EVERY HD PRN PRN Reason: Titrate to SBP (MUST DEFINE) Melatonin (Melatonin 5 Mg Tablet) 5 mg PO BEDTIME [facility] Last Admin: 09/11/20 21:53 Dose: 5 mg Documented by: Methylprednisolone Sodium Succinate (Methylprednisolone 125 Mg Inj) 60 mg IV TID [facility] Last Admin: 09/12/20 15:13 Dose: 60 mg Documented by: Metoprolol Tartrate (Metoprolol Tar 50 Mg Tab) 50 mg PO BID [facility] Last Admin: 09/12/20 09:20 Dose: 50 mg Documented by: Ondansetron HCl (Ondansetron 4 Mg/2 Ml Vial) 4 mg IV Q6HP PRN PRN Reason: NAUSEA / VOMITING Sodium Chloride (Flush Normal Saline 10 Ml) 10 ml IV BID [facility] Last Admin: 09/12/20 09:20 Dose: 10 ml Documented by: Thiamine HCl (Thiamine Hcl 100 Mg Tablet) 100 mg PO BID [facility] Last Admin: 09/12/20 09:17 Dose: 100 mg Documented by: Vitamin B Complex/Vit C/Folic Acid (Multivitamins,Therapeut 1 Tab) 1 tab PO DAILY [facility] Last Admin: 09/12/20 09:19 Dose: 1 tab Documented by: Zinc Sulfate (Zinc Sulfate 220 Mg Cap) 220 mg PO DAILY [facility] Last Admin: 09/12/20 09:19 Dose: 220 mg Documented by: Microbiology Results 09/06/20 00:48 Blood - Blood Aerobic Blood Culture - Final No growth in 5 days. 09/06/20 00:48 Blood - Blood Anaerobic Blood Culture - Final No growth in 5 days. Assessment/ Plan: Nephrology Persistent dyspnea and hypoxia Feeling better today. +Appetite No acute events overnight. Vitals, medications, blood work and imaging reviewed in the chart. General: In no apparent distress, Oriented x3, Cooperative HEENT: Atraumatic Neck: Supple, JVD distended Respiratory: Diminished Cardiovascular: Regular rate/rhythm, Edema Gastrointestinal: Soft and benign, Non-distended Musculoskeletal: No clubbing, No contractures Integumentary: No rashes, No cyanosis Neurological: Normal speech Laboratory Data (last 24 hrs) 09/06/20 09:09: PT 11.5, INR 1.00, APTT 33.8 09/06/20 09:09: Sodium 131 L, Potassium 4.6, BUN 66 H, Creatinine 12.20 H*, Glucose 80, Total Bilirubin 0.5, AST 120 H, ALT 51, Alkaline Phosphatase 128 H 09/06/20 00:48: WBC 5.00, Hgb 10.4 L, Hct 30.7 L, Plt Count 123 L Imagings Data: EXAM DESCRIPTION: Tejal Single View09/06/2020 9:47 am CLINICAL HISTORY: Shortness of breath COMPARISON: 2019 FINDINGS: Moderate bilateral pulmonary opacities. The heart is mildly enlarged IMPRESSION: Moderate bilateral pulmonary opacities could represent pneumonia or pulmonary edema Conclusions/Impression: A/P: Continue the current POC and Medications other than the changes listed. AM Labs PRN. Recommend daily weight. Please see the orders for complete detail s. ESRD TTS -Acute HD today. Hyponatremia -HD TIW Acidosis -HD TIW HTN with CKD/ CHF -Continue Amlodipine -Continue Metoprolol -Continue Doxazosin Diastolic CHF -HD TIW -Continue Metoprolol -Continue furosemide DM II with CKD and Polyneuropathy -Continue Lantus Anemia in CKD -Continue Retacrit DANITA/ Secondary HyperPTH -Continue Vitamin D3 Rhabdomyolysis COVID PNA -Wean Solumedrol as tolerated
[2020-09-12] MEDS: DOXAZOSIN 2 MG TAB PO SCH (21:38)
[2020-09-12] MEDS: ASCORBIC ACID 500 MG TABLET PO SCH (21:39)
[2020-09-12] MEDS: MELATONIN 5 MG TABLET PO SCH (21:39)
[2020-09-12] MEDS: ATORVASTATIN 10 MG TAB PO SCH (21:41)
[2020-09-13 05:26] LABS: Ferritin 1320.8 ng/mL (26-388); Magnesium 2.3 mg/dL (1.8-2.4); Potassium 4.7 mmol/L (3.5-5.1)
[2020-09-13] MEDS: GLIMEPIRIDE 2 MG TABLET PO SCH (05:59)
[2020-09-13] MEDS: INSULIN -REGULAR HUMAN 50 UNIT/0.5 ML ML SQ SCH ×4 (07:30→20:32)
--- NOTE | 2020-09-13 08:54 | P.PN ---
Subjective Date of Service: 09/12/20 Subjective: No new changes, No C/O voiced, Improving Patient states he is doing better. Try to wean down his oxygen today. He is on high-flow at 40 L/min and at an FiO2 of 90%. Review of Systems 10-point ROS is otherwise unremarkable Physical Examination - Vital Signs Temperature: 98.3 F Blood Pressure: 157/72 Pulse: 64 Respirations: 20 Pulse Ox (%): 98 - Physical Exam General: Alert, In no apparent distress, Oriented x3 Respiratory: Diminished, Expiratory wheezes Cardiovascular: Regular rate/rhythm, Normal S1 S2, No murmurs Gastrointestinal: Normal bowel sounds, Soft and benign, Non-distended, No tenderness Musculoskeletal: No clubbing, No swelling, No tenderness Neurological: Sensation intact, Cranial nerves 3-12 intact - Studies Medications List Reviewed: Yes Assessment & Plan - Problems (Diagnosis) (1) Pneumonia due to COVID-19 virus Current Visit: Yes Status: Acute (2) ESRD (end stage renal disease) Current Visit: No Status: Acute (3) History of diabetes mellitus, type II Current Visit: No Status: Chronic (4) Hypertension Current Visit: No Status: Chronic Qualifiers: Hypertension type: essential hypertension Qualified Code(s): I10 - Essential (primary) hypertension - Plan 1. Continue with IV steroids 2. Wean down the high-flow settings 3. Repeat chest x-ray is symptoms are progressively worsening 4. Pulmonary consultation 5. Continue with albuterol inhaler therapy; patient was given ivermectin 6. Repeat labs including D-dimer, ferritin, and CRP and LFTs 7. GI and DVT prophylaxis Discharge Plan: Home Plan to discharge in: Greater than 2 days - Advance Directives Does patient have a Living Will: No Does patient have a Durable POA for Healthcare: No - Code Status/Comfort Care Code Status Assessed: No Code Status: Full Code Critical Care: No Time Spent Managing PTS Care (In Minutes): 45
--- NOTE | 2020-09-13 08:57 | P.PN ---
Subjective Date of Service: 09/13/20 Patient still pretty tachypneic. Very gradually weaning down his high-flow settings. Review of Systems 10-point ROS is otherwise unremarkable Physical Examination - Vital Signs Temperature: 98.3 F Blood Pressure: 157/72 Pulse: 64 Respirations: 20 Pulse Ox (%): 98 - Physical Exam General: Alert, In no apparent distress, Oriented x3 Respiratory: Diminished, Expiratory wheezes Cardiovascular: Regular rate/rhythm, Normal S1 S2, No murmurs Gastrointestinal: Normal bowel sounds, Soft and benign, Non-distended, No tenderness Musculoskeletal: No clubbing, No swelling, No tenderness Neurological: Sensation intact, Cranial nerves 3-12 intact - Studies Medications List Reviewed: Yes Assessment & Plan - Problems (Diagnosis) (1) Pneumonia due to COVID-19 virus Current Visit: Yes Status: Acute (2) ESRD (end stage renal disease) Current Visit: No Status: Acute (3) History of diabetes mellitus, type II Current Visit: No Status: Chronic (4) Hypertension Current Visit: No Status: Chronic Qualifiers: Hypertension type: essential hypertension Qualified Code(s): I10 - Essential (primary) hypertension - Plan Continue with plan of care as mentioned below 1. Continue with IV steroids 2. Wean down the high-flow settings 3. Will probably repeat chest x-ray in the morning 4. Pulmonary consultation appreciated 5. Continue with albuterol inhaler therapy; patient was given ivermectin 6. Monitor inflammatory markers 7. GI and DVT prophylaxis Discharge Plan: Home Plan to discharge in: Greater than 2 days - Advance Directives Does patient have a Living Will: No Does patient have a Durable POA for Healthcare: No - Code Status/Comfort Care Code Status: Full Code Time Spent Managing PTS Care (In Minutes): 35
[2020-09-13] MEDS: FUROSEMIDE 40 MG TABLET PO SCH ×2 (09:00→14:17)
[2020-09-13] MEDS: HOME MED 1 EA UNK (Linagliptin [Tradjenta] 5 MG Tablet) PO SCH (09:00)
[2020-09-13] MEDS: CALCIUM ACETATE 667 MG TAB PO SCH ×3 (09:14→17:20)
[2020-09-13] MEDS: INSULIN GLARGINE 100 UNITS/ML SQ SCH ×2 (09:14→20:34)
[2020-09-13] MEDS: APIXABAN 2.5 MG TABLET PO SCH ×2 (09:14→20:32)
[2020-09-13] MEDS: METHYLPREDNISOLONE 125 MG INJ IV SCH ×3 (09:14→20:33)
[2020-09-13] MEDS: CALCITROL 0.25 MCG CAP PO SCH (14:16)
[2020-09-13] MEDS: MULTIVITAMINS,THERAPEUT 1 TAB PO SCH (14:16)
[2020-09-13] MEDS: DOCUSATE NA 100 MG CAP PO SCH ×2 (14:16→20:32)
[2020-09-13] MEDS: ZINC SULFATE 220 MG CAP PO SCH (14:17)
[2020-09-13] MEDS: METOPROLOL TAR 50 MG TAB PO SCH ×2 (14:17→20:33)
[2020-09-13] MEDS: VITAMIN D 5,000 UNIT CAP PO SCH (14:17)
[2020-09-13] MEDS: AMLODIPINE 10 MG TAB PO SCH (14:17)
[2020-09-13] MEDS: THIAMINE HCL 100 MG TABLET PO SCH ×2 (14:17→20:33)
--- NOTE | 2020-09-13 18:04 | P.PN ---
Date of Service: 09/13/20 Vital Signs Temp Pulse Resp BP Pulse Ox 98.7 F 68 20 158/86 H 94 09/13/20 16:00 09/13/20 16:00 09/13/20 16:00 09/13/20 16:00 09/13/20 16:00 Medications Acetaminophen (Acetaminophen 500 Mg Tab) 500 mg PO Q4HP PRN PRN Reason: TEMP > 101' F Amlodipine Besylate (Amlodipine 10 Mg Tab) 10 mg PO DAILY [facility] Last Admin: 09/13/20 14:17 Dose: 10 mg Documented by: Apixaban (Apixaban 2.5 Mg Tablet) 2.5 mg PO BID [facility] Last Admin: 09/13/20 09:14 Dose: 2.5 mg Documented by: Ascorbic Acid (Ascorbic Acid 500 Mg Tablet) 500 mg PO BEDTIME [facility] Last Admin: 09/12/20 21:39 Dose: 500 mg Documented by: Atorvastatin Calcium (Atorvastatin 10 Mg Tab) 10 mg PO BEDTIME [facility] Last Admin: 09/12/20 21:41 Dose: 10 mg Documented by: Calcitriol (Calcitrol 0.25 Mcg Cap) 0.5 mcg PO DAILY [facility] Last Admin: 09/13/20 14:16 Dose: 0.5 mcg Documented by: Calcium Acetate (Ca Acetate 667 Mg Cap) 1,334 mg PO TIDWM [facility] Last Admin: 09/13/20 17:20 Dose: 1,334 mg Documented by: Cholecalciferol (Vitamin D 5,000 Unit Cap) 5,000 unit PO DAILY [facility] Last Admin: 09/13/20 14:17 Dose: 5,000 unit Documented by: Dextrose (D50w 25 Gm/50 Ml Vial) 12.5 gm IV PRN PRN; Protocol PRN Reason: HYPOGLYCEMIA Docusate Sodium (Docusate Na 100 Mg Cap) 100 mg PO BID [facility] Last Admin: 09/13/20 14:16 Dose: 100 mg Documented by: Doxazosin Mesylate (Doxazosin 2 Mg Tab) 2 mg PO BEDTIME [facility] Last Admin: 09/12/20 21:38 Dose: 2 mg Documented by: Furosemide (Furosemide 40 Mg Tablet) 40 mg PO BIDL [facility] Last Admin: 09/13/20 14:17 Dose: 40 mg Documented by: Glimepiride (Glimepiride 2 Mg Tablet) 4 mg PO DAILYAC [facility] Last Admin: 09/13/20 05:59 Dose: 4 mg Documented by: Glucagon (Glucagon 1 Mg/Vial) 1 mg IM 1X PRN; Protocol PRN Reason: HYPOGLYCEMIA Heparin Sodium (Porcine) (Heparin 1,000 Unit/Ml Vial) 3,000 unit IV EVERY HD [facility] Stop: 09/17/20 09:01 Last Admin: 09/13/20 10:25 Dose: 3,000 unit Documented by: Home Med (Linagliptin [Tradjenta]) 5 mg PO DAILY [facility] Last Admin: 09/13/20 09:00 Dose: Not Given Documented by: Albumin Human (Albumin 25%) 50 mls @ 100 mls/hr IV EVERY HD [facility] Insulin Glargine (Insulin Glargine 100 Units/Ml) 30 units SQ BID [facility] Last Admin: 09/13/20 09:14 Dose: 30 units Documented by: Insulin Human Regular (Insulin -Regular Human 50 Unit/0.5 Ml Ml) 0 unit SQ ACHS [facility]; Protocol Last Admin: 09/13/20 17:20 Dose: 8 unit Documented by: Mannitol (Mannitol 25% 12.5 Gm/50 Ml Vial) 12.5 gm IV EVERY HD PRN PRN Reason: Titrate to SBP (MUST DEFINE) Melatonin (Melatonin 5 Mg Tablet) 5 mg PO BEDTIME [facility] Last Admin: 09/12/20 21:39 Dose: 5 mg Documented by: Methylprednisolone Sodium Succinate (Methylprednisolone 125 Mg Inj) 60 mg IV TID [facility] Last Admin: 09/13/20 14:16 Dose: 60 mg Documented by: Metoprolol Tartrate (Metoprolol Tar 50 Mg Tab) 50 mg PO BID [facility] Last Admin: 09/13/20 14:17 Dose: 50 mg Documented by: Ondansetron HCl (Ondansetron 4 Mg/2 Ml Vial) 4 mg IV Q6HP PRN PRN Reason: NAUSEA / VOMITING Sodium Chloride (Flush Normal Saline 10 Ml) 10 ml IV BID [facility] Last Admin: 09/13/20 09:00 Dose: 10 ml Documented by: Thiamine HCl (Thiamine Hcl 100 Mg Tablet) 100 mg PO BID [facility] Last Admin: 09/13/20 14:17 Dose: 100 mg Documented by: Vitamin B Complex/Vit C/Folic Acid (Multivitamins,Therapeut 1 Tab) 1 tab PO DAILY [facility] Last Admin: 09/13/20 14:16 Dose: 1 tab Documented by: Zinc Sulfate (Zinc Sulfate 220 Mg Cap) 220 mg PO DAILY [facility] Last Admin: 09/13/20 14:17 Dose: 220 mg Documented by: Microbiology Results 09/06/20 00:48 Blood - Blood Aerobic Blood Culture - Final No growth in 5 days. 09/06/20 00:48 Blood - Blood Anaerobic Blood Culture - Final No growth in 5 days. Assessment/ Plan: Nephrology Persistent dyspnea and hypoxia Feeling better slowly. +Appetite No acute events overnight. Vitals, medications, blood work and imaging reviewed in the chart. General: In no apparent distress, Oriented x3, Cooperative HEENT: Atraumatic Neck: Supple, JVD distended Respiratory: Diminished Cardiovascular: Regular rate/rhythm, Edema Gastrointestinal: Soft and benign, Non-distended Musculoskeletal: No clubbing, No contractures Integumentary: No rashes, No cyanosis Neurological: Normal speech Laboratory Data (last 24 hrs) 09/06/20 09:09: PT 11.5, INR 1.00, APTT 33.8 09/06/20 09:09: Sodium 131 L, Potassium 4.6, BUN 66 H, Creatinine 12.20 H*, Glucose 80, Total Bilirubin 0.5, AST 120 H, ALT 51, Alkaline Phosphatase 128 H 09/06/20 00:48: WBC 5.00, Hgb 10.4 L, Hct 30.7 L, Plt Count 123 L Imagings Data: EXAM DESCRIPTION: Tejal Single View09/06/2020 9:47 am CLINICAL HISTORY: Shortness of breath COMPARISON: 2019 FINDINGS: Moderate bilateral pulmonary opacities. The heart is mildly enlarged IMPRESSION: Moderate bilateral pulmonary opacities could represent pneumonia or pulmonary edema Conclusions/Impression: A/P: Continue the current POC and Medications other than the changes listed. AM Labs PRN. Recommend daily weight. Please see the orders for complete details. ESRD TTS -Acute HD today. Hyponatremia -HD TIW Acidosis -HD TIW HTN with CKD/ CHF -Continue Amlodipine -Continue Metoprolol -Continue Doxazosin Diastolic CHF -HD TIW -Continue Metoprolol -Continue furosemide DM II with CKD and Polyneuropathy -Continue Lantus Anemia in CKD -Continue Retacrit DANITA/ Secondary HyperPTH -Continue Vitamin D3 Rhabdomyolysis COVID PNA -Wean Solumedrol as tolerated
[2020-09-13] MEDS: ASCORBIC ACID 500 MG TABLET PO SCH (20:32)
[2020-09-13] MEDS: DOXAZOSIN 2 MG TAB PO SCH (20:32)
[2020-09-13] MEDS: MELATONIN 5 MG TABLET PO SCH (20:32)
[2020-09-13] MEDS: ATORVASTATIN 10 MG TAB PO SCH (20:33)
[2020-09-14 04:25] LABS: Absolute Lymphocytes (CBC) 0.2 K/uL (0.7-4.9); Basophils % 0.4 % (0-1.3); Hematocrit 31.1 % (39.6-49.0); Lymphocytes % 1.6 % (15.3-44.8); MPV 8.1 fL (7.6-11.3)
[2020-09-14 04:51] LABS: Bilirubin Total 0.4 mg/dL (0.2-1.0); C-Reactive Protein 23.7 mg/L (<3.00); Ferritin 1308.4 ng/mL (26-388); Magnesium 2.4 mg/dL (1.8-2.4); Potassium 4.7 mmol/L (3.5-5.1); Protein, Total 6.6 g/dL (6.4-8.2)
[2020-09-14] MEDS: GLIMEPIRIDE 2 MG TABLET PO SCH (05:03)
[2020-09-14 05:22] LABS: Blood Morphology Comment NOT SEEN (NOT SEEN); Platelet Estimate ADEQ
[2020-09-14] MEDS: INSULIN -REGULAR HUMAN 50 UNIT/0.5 ML ML SQ SCH ×5 (07:30→21:11)
[2020-09-14] MEDS: INSULIN GLARGINE 100 UNITS/ML SQ SCH ×2 (07:56→21:10)
[2020-09-14] MEDS: CALCIUM ACETATE 667 MG TAB PO SCH ×3 (07:57→16:34)
[2020-09-14] MEDS: ZINC SULFATE 220 MG CAP PO SCH (07:57)
[2020-09-14] MEDS: CALCITROL 0.25 MCG CAP PO SCH (07:57)
[2020-09-14] MEDS: METHYLPREDNISOLONE 125 MG INJ IV SCH ×3 (07:57→21:07)
[2020-09-14] MEDS: THIAMINE HCL 100 MG TABLET PO SCH ×2 (07:58→21:09)
[2020-09-14] MEDS: VITAMIN D 5,000 UNIT CAP PO SCH (07:58)
[2020-09-14] MEDS: APIXABAN 2.5 MG TABLET PO SCH ×2 (07:58→21:10)
[2020-09-14] MEDS: HOME MED 1 EA UNK (Linagliptin [Tradjenta] 5 MG Tablet) PO SCH (07:58)
[2020-09-14] MEDS: FUROSEMIDE 40 MG TABLET PO SCH ×2 (07:58→16:33)
[2020-09-14] MEDS: MULTIVITAMINS,THERAPEUT 1 TAB PO SCH (07:58)
[2020-09-14] MEDS: AMLODIPINE 10 MG TAB PO SCH (07:59)
[2020-09-14] MEDS: METOPROLOL TAR 50 MG TAB PO SCH ×2 (07:59→21:10)
[2020-09-14] MEDS: EPOETIN ALFA-EPBX 4,000 UNIT/ML VIAL SQ SCH (08:25)
[2020-09-14] MEDS: DOCUSATE NA 100 MG CAP PO SCH ×2 (08:25→21:09)
[2020-09-14] MEDS: HYDRALAZINE HCL 20 MG/ML VIAL IV PRN (12:34)
--- NOTE | 2020-09-14 13:25 | PN ---
Date of Progress Note: 09/14/2020 Subjective: The patient is not seen or examined. Discussed with the nurse. The patient has been on high-flow oxygen and he has been very agitated and does not want to be bothered much. Physical Examination: Vital Signs have been reviewed. Blood pressure is running high in the 180s range because of agitatio n. P.r.n. hydralazine has been ordered. Current Medications: Have been reviewed in detail. Laboratory Data: Has been reviewed in detail. Impression: 1.End-stage renal disease, on dialysis. 2.COVID-19 pneumonia, leading to acute respiratory failure. 3.Uncontrolled hypertension. 4.Anemia secondary to chronic disease. 5.Agitation, leading to increased blood pressure. Plan: The patient is overall clinically stable; however, we are concerned about his volume status. The patient had dialysis yesterday and we will plan for dialysis again tomorrow. We will continue wi th the high-flow oxygen and monitor his blood pressure closely and labs are being monitored as well. Chest x-ray has not been done this morning. Wean off steroids as tolerated for COVID-19 pneumonia a s this is leading to increase the BUN; however, his creatinine is trending down nicely with dialysis. VV/MODL Voice ID: [id number] Report ID: [id number]
[2020-09-14] MEDS: MELATONIN 5 MG TABLET PO SCH (21:09)
[2020-09-14] MEDS: ATORVASTATIN 10 MG TAB PO SCH (21:09)
[2020-09-14] MEDS: ASCORBIC ACID 500 MG TABLET PO SCH (21:09)
[2020-09-14] MEDS: DOXAZOSIN 2 MG TAB PO SCH (21:10)
[2020-09-15 05:27] LABS: Absolute Lymphocytes (CBC) 0.2 K/uL (0.7-4.9); Basophils % 0.4 % (0-1.3); Hematocrit 30.3 % (39.6-49.0); Lymphocytes % 1.8 % (15.3-44.8); MPV 8.4 fL (7.6-11.3); RBC Red Blood Cell Count 3.65 M/uL (4.33-5.43)
[2020-09-15 05:45] LABS: Albumin 2.1 g/dL (3.4-5.0); Bilirubin Total 0.4 mg/dL (0.2-1.0); C-Reactive Protein 14.9 mg/L (<3.00); Ferritin 1297.1 ng/mL (26-388); Potassium 4.8 mmol/L (3.5-5.1); Protein, Total 6.7 g/dL (6.4-8.2)
[2020-09-15] MEDS: GLIMEPIRIDE 2 MG TABLET PO SCH (06:58)
--- NOTE | 2020-09-15 07:50 | P.PN ---
Date of Service: 09/15/20 Subjective Patient continues to improve with no new complaint. Symptoms continue to resolve. Review of Systems 10-point ROS is otherwise unremarkable Physical Examination - Vital Signs Reviewed - Physical Exam General: Alert, In no apparent distress, Oriented x3 Respiratory: Diminished, Expiratory wheezes Cardiovascular: Regular rate/rhythm, Normal S1 S2, No murmurs Gastrointestinal: Normal bowel sounds, Soft and benign, Non-distended, No tenderness Musculoskeletal: No clubbing, No swelling, No tenderness Neurological: Sensation intact, Cranial nerves 3-12 intact Assessment & Plan - Problems (Diagnosis) (1) Pneumonia due to COVID-19 virus Current Visit: Yes Status: Acute (2) ESRD (end stage renal disease) Current Visit: No Status: Acute (3) History of diabetes mellitus, type II Current Visit: No Status: Chronic (4) Hypertension Current Visit: No Status: Chronic Qualifiers: Hypertension type: essential hypertension Qualified Code(s): I10 - Essential (primary) hypertension - Plan Continue with plan of care as mentioned below 1. Continue with IV steroids 2. Weaning down to wall O2 3. Will probably repeat chest x-ray in the morning 4. Pulmonary consultation appreciated 5. Continue with albuterol inhaler therapy; patient was given ivermectin 6. Monitor inflammatory markers 7. GI and DVT prophylaxis
[2020-09-15] MEDS: INSULIN -REGULAR HUMAN 50 UNIT/0.5 ML ML SQ SCH ×4 (08:44→22:01)
[2020-09-15] MEDS: APIXABAN 2.5 MG TABLET PO SCH ×2 (08:45→21:57)
[2020-09-15] MEDS: INSULIN GLARGINE 100 UNITS/ML SQ SCH ×2 (08:45→21:58)
[2020-09-15] MEDS: CALCIUM ACETATE 667 MG TAB PO SCH ×3 (08:45→16:21)
[2020-09-15] MEDS: CALCITROL 0.25 MCG CAP PO SCH (08:45)
[2020-09-15] MEDS: VITAMIN D 5,000 UNIT CAP PO SCH (08:46)
[2020-09-15] MEDS: DOCUSATE NA 100 MG CAP PO SCH ×2 (08:46→21:57)
[2020-09-15] MEDS: METOPROLOL TAR 50 MG TAB PO SCH ×2 (08:46→22:00)
[2020-09-15] MEDS: ZINC SULFATE 220 MG CAP PO SCH (08:46)
[2020-09-15] MEDS: MULTIVITAMINS,THERAPEUT 1 TAB PO SCH (08:46)
[2020-09-15] MEDS: AMLODIPINE 10 MG TAB PO SCH (08:47)
[2020-09-15] MEDS: FUROSEMIDE 40 MG TABLET PO SCH ×2 (08:47→16:21)
[2020-09-15] MEDS: THIAMINE HCL 100 MG TABLET PO SCH ×2 (08:47→22:02)
[2020-09-15] MEDS: METHYLPREDNISOLONE 125 MG INJ IV SCH ×3 (08:47→22:02)
[2020-09-15] MEDS: HOME MED 1 EA UNK (Linagliptin [Tradjenta] 5 MG Tablet) PO SCH (08:48)
--- NOTE | 2020-09-15 17:17 | P.PN ---
Date of Service: 09/15/20 Vital Signs Temp Pulse Resp BP Pulse Ox 98.2 F 68 16 167/86 H 94 09/15/20 16:00 09/15/20 16:00 09/15/20 16:00 09/15/20 16:00 09/15/20 16:00 Medications Acetaminophen (Acetaminophen 500 Mg Tab) 500 mg PO Q4HP PRN PRN Reason: TEMP > 101' F Amlodipine Besylate (Amlodipine 10 Mg Tab) 10 mg PO DAILY [facility] Last Admin: 09/15/20 08:47 Dose: 10 mg Documented by: Apixaban (Apixaban 2.5 Mg Tablet) 2.5 mg PO BID [facility] Last Admin: 09/15/20 08:45 Dose: 2.5 mg Documented by: Ascorbic Acid (Ascorbic Acid 500 Mg Tablet) 500 mg PO BEDTIME [facility] Last Admin: 09/14/20 21:09 Dose: 500 mg Documented by: Atorvastatin Calcium (Atorvastatin 10 Mg Tab) 10 mg PO BEDTIME [facility] Last Admin: 09/14/20 21:09 Dose: 10 mg Documented by: Calcitriol (Calcitrol 0.25 Mcg Cap) 0.5 mcg PO DAILY [facility] Last Admin: 09/15/20 08:45 Dose: 0.5 mcg Documented by: Calcium Acetate (Ca Acetate 667 Mg Cap) 1,334 mg PO TIDWM [facility] Last Admin: 09/15/20 16:21 Dose: Not Given Documented by: Cholecalciferol (Vitamin D 5,000 Unit Cap) 5,000 unit PO DAILY [facility] Last Admin: 09/15/20 08:46 Dose: 5,000 unit Documented by: Dextrose (D50w 25 Gm/50 Ml Vial) 12.5 gm IV PRN PRN; Protocol PRN Reason: HYPOGLYCEMIA Docusate Sodium (Docusate Na 100 Mg Cap) 100 mg PO BID [facility] Last Admin: 09/15/20 08:46 Dose: 100 mg Documented by: Doxazosin Mesylate (Doxazosin 2 Mg Tab) 2 mg PO BEDTIME [facility] Last Admin: 09/14/20 21:10 Dose: 2 mg Documented by: Furosemide (Furosemide 40 Mg Tablet) 40 mg PO BIDL [facility] Last Admin: 09/15/20 16:21 Dose: Not Given Documented by: Glimepiride (Glimepiride 2 Mg Tablet) 4 mg PO DAILYAC [facility] Last Admin: 09/15/20 06:58 Dose: 4 mg Documented by: Glucagon (Glucagon 1 Mg/Vial) 1 mg IM 1X PRN; Protocol PRN Reason: HYPOGLYCEMIA Heparin Sodium (Porcine) (Heparin 1,000 Unit/Ml Vial) 3,000 unit IV EVERY HD [facility] Stop: 09/17/20 09:01 Last Admin: 09/13/20 10:25 Dose: 3,000 unit Documented by: Home Med (Linagliptin [Tradjenta]) 5 mg PO DAILY [facility] Last Admin: 09/15/20 08:48 Dose: Not Given Documented by: Hydralazine HCl (Hydralazine Hcl 20 Mg/Ml Vial) 10 mg IV Q6HP PRN PRN Reason: Titrate to SBP (MUST DEFINE) Last Admin: 09/14/20 12:34 Dose: 10 mg Documented by: Albumin Human (Albumin 25%) 50 mls @ 100 mls/hr IV EVERY HD [facility] Insulin Glargine (Insulin Glargine 100 Units/Ml) 30 units SQ BID [facility] Last Admin: 09/15/20 08:45 Dose: 30 units Documented by: Insulin Human Regular (Insulin -Regular Human 50 Unit/0.5 Ml Ml) 0 unit SQ ACHS [facility]; Protocol Last Admin: 09/15/20 17:11 Dose: 10 unit Documented by: Mannitol (Mannitol 25% 12.5 Gm/50 Ml Vial) 12.5 gm IV EVERY HD PRN PRN Reason: Titrate to SBP (MUST DEFINE) Melatonin (Melatonin 5 Mg Tablet) 5 mg PO BEDTIME [facility] Last Admin: 09/14/20 21:09 Dose: 5 mg Documented by: Methylprednisolone Sodium Succinate (Methylprednisolone 125 Mg Inj) 60 mg IV TID [facility] Last Admin: 09/15/20 13:41 Dose: 60 mg Documented by: Metoprolol Tartrate (Metoprolol Tar 50 Mg Tab) 50 mg PO BID [facility] Last Admin: 09/15/20 08:46 Dose: 50 mg Documented by: Ondansetron HCl (Ondansetron 4 Mg/2 Ml Vial) 4 mg IV Q6HP PRN PRN Reason: NAUSEA / VOMITING Sodium Chloride (Flush Normal Saline 10 Ml) 10 ml IV BID [facility] Last Admin: 09/15/20 08:48 Dose: 10 ml Documented by: Thiamine HCl (Thiamine Hcl 100 Mg Tablet) 100 mg PO BID [facility] Last Admin: 09/15/20 08:47 Dose: 100 mg Documented by: Vitamin B Complex/Vit C/Folic Acid (Multivitamins,Therapeut 1 Tab) 1 tab PO DAILY [facility] Last Admin: 09/15/20 08:46 Dose: 1 tab Documented by: Zinc Sulfate (Zinc Sulfate 220 Mg Cap) 220 mg PO DAILY [facility] Last Admin: 09/15/20 08:46 Dose: 220 mg Documented by: Microbiology Results 09/06/20 00:48 Blood - Blood Aerobic Blood Culture - Final No growth in 5 days. 09/06/20 00:48 Blood - Blood Anaerobic Blood Culture - Final No growth in 5 days. Assessment/ Plan: Nephrology Feeling better. Persistent dyspnea and hypoxia No acute events overnight. Vitals, medications, blood work and imaging reviewed in the chart. General: In no apparent distress, Oriented x3, Cooperative HEENT: Atraumatic Neck: Supple, JVD distended Respiratory: Diminished Cardiovascular: Regular rate/rhythm, Edema Gastrointestinal: Soft and benign, Non-distended Musculoskeletal: No clubbing, No contractures Integumentary: No rashes, No cyanosis Neurological: Normal speech Laboratory Data (last 24 hrs) 09/06/20 09:09: PT 11.5, INR 1.00, APTT 33.8 09/06/20 09:09: Sodium 131 L, Potassium 4.6, BUN 66 H, Creatinine 12.20 H*, Glucose 80, Total Bilirubin 0.5, AST 120 H, ALT 51, Alkaline Phosphatase 128 H 09/06/20 00:48: WBC 5.00, Hgb 10.4 L, Hct 30.7 L, Plt Count 123 L Imagings Data: EXAM DESCRIPTION: Tejal Single View09/06/2020 9:47 am CLINICAL HISTORY: Shortness of breath COMPARISON: 2019 FINDINGS: Moderate bilateral pulmonary opacities. The heart is mildly enlarged IMPRESSION: Moderate bilateral pulmonary opacities could represent pneumonia or pulmonary edema Conclusions/Impression: A/P: Continue the current POC and Medications other than the changes listed. AM Labs PRN. Recommend daily weight. Please see the orders for complete details. ESRD TTS -Acute HD today. Hyponatremia -HD TIW Acidosis -HD TIW HTN with CKD/ CHF -Continue Amlodipine -Continue Metoprolol -Continue Doxazosin Diastolic CHF -HD TIW -Continue Metoprolol -Continue furosemide DM II with CKD and Polyneuropathy -Continue Lantus Moderate malnutrition -Encourage nutrition -Recommend protein supplementation Anemia in CKD -Continue Retacrit DANITA/ Secondary HyperPTH -Continue Vitamin D3 Rhabdomyolysis COVID PNA -Wean Solumedrol as tolerated -Continue Oxygen supplementation
[2020-09-15] MEDS: DOXAZOSIN 2 MG TAB PO SCH (21:56)
[2020-09-15] MEDS: ATORVASTATIN 10 MG TAB PO SCH (21:59)
[2020-09-15] MEDS: MELATONIN 5 MG TABLET PO SCH (22:01)
[2020-09-15] MEDS: ASCORBIC ACID 500 MG TABLET PO SCH (22:02)
[2020-09-16 05:03] LABS: Absolute Lymphocytes (CBC) 0.1 K/uL (0.7-4.9); Basophils % 0.2 % (0-1.3); Hematocrit 29.5 % (39.6-49.0); Lymphocytes % 1.5 % (15.3-44.8); MPV 8.4 fL (7.6-11.3); RBC Red Blood Cell Count 3.49 M/uL (4.33-5.43)
[2020-09-16 05:40] LABS: Bilirubin Total 0.4 mg/dL (0.2-1.0); C-Reactive Protein 10.5 mg/L (<3.00); Ferritin 1155.3 ng/mL (26-388); Potassium 4.6 mmol/L (3.5-5.1); Protein, Total 6.2 g/dL (6.4-8.2)
[2020-09-16] MEDS: GLIMEPIRIDE 2 MG TABLET PO SCH (06:11)
[2020-09-16] MEDS: INSULIN -REGULAR HUMAN 50 UNIT/0.5 ML ML SQ SCH ×4 (07:30→23:05)
[2020-09-16] MEDS: THIAMINE HCL 100 MG TABLET PO SCH ×2 (08:44→20:45)
[2020-09-16] MEDS: FUROSEMIDE 40 MG TABLET PO SCH ×2 (08:44→16:23)
[2020-09-16] MEDS: AMLODIPINE 10 MG TAB PO SCH (08:46)
[2020-09-16] MEDS: CALCITROL 0.25 MCG CAP PO SCH (08:46)
[2020-09-16] MEDS: CALCIUM ACETATE 667 MG TAB PO SCH ×3 (08:46→16:23)
[2020-09-16] MEDS: ZINC SULFATE 220 MG CAP PO SCH (08:47)
[2020-09-16] MEDS: APIXABAN 2.5 MG TABLET PO SCH ×2 (08:47→20:43)
[2020-09-16] MEDS: METOPROLOL TAR 50 MG TAB PO SCH ×2 (08:47→20:44)
[2020-09-16] MEDS: DOCUSATE NA 100 MG CAP PO SCH ×2 (08:47→20:43)
[2020-09-16] MEDS: MULTIVITAMINS,THERAPEUT 1 TAB PO SCH (08:47)
[2020-09-16] MEDS: VITAMIN D 5,000 UNIT CAP PO SCH (08:47)
[2020-09-16] MEDS: INSULIN GLARGINE 100 UNITS/ML SQ SCH ×2 (08:49→23:06)
[2020-09-16] MEDS: METHYLPREDNISOLONE 125 MG INJ IV SCH ×3 (08:50→20:45)
[2020-09-16] MEDS: HOME MED 1 EA UNK (Linagliptin [Tradjenta] 5 MG Tablet) PO SCH (08:51)
[2020-09-16] MEDS: EPOETIN ALFA-EPBX 4,000 UNIT/ML VIAL SQ SCH (12:13)
[2020-09-16] MEDS: DOXAZOSIN 2 MG TAB PO SCH (20:41)
[2020-09-16] MEDS: MELATONIN 5 MG TABLET PO SCH (20:44)
[2020-09-16] MEDS: ATORVASTATIN 10 MG TAB PO SCH (20:44)
[2020-09-16] MEDS: ASCORBIC ACID 500 MG TABLET PO SCH (20:46)
--- NOTE | 2020-09-16 20:55 | P.PN ---
Date of Service: 09/16/20 Vital Signs Temp Pulse Resp BP Pulse Ox 97 F 66 20 150/80 H 91 09/16/20 16:00 09/16/20 16:00 09/16/20 16:00 09/16/20 16:00 09/16/20 16:00 Medications Acetaminophen (Acetaminophen 500 Mg Tab) 500 mg PO Q4HP PRN PRN Reason: TEMP > 101' F Amlodipine Besylate (Amlodipine 10 Mg Tab) 10 mg PO DAILY [facility] Last Admin: 09/16/20 08:46 Dose: 10 mg Documented by: Apixaban (Apixaban 2.5 Mg Tablet) 2.5 mg PO BID [facility] Last Admin: 09/16/20 08:47 Dose: 2.5 mg Documented by: Ascorbic Acid (Ascorbic Acid 500 Mg Tablet) 500 mg PO BEDTIME [facility] Last Admin: 09/15/20 22:02 Dose: 500 mg Documented by: Atorvastatin Calcium (Atorvastatin 10 Mg Tab) 10 mg PO BEDTIME [facility] Last Admin: 09/15/20 21:59 Dose: 10 mg Documented by: Calcitriol (Calcitrol 0.25 Mcg Cap) 0.5 mcg PO DAILY [facility] Last Admin: 09/16/20 08:46 Dose: 0.5 mcg Documented by: Calcium Acetate (Ca Acetate 667 Mg Cap) 1,334 mg PO TIDWM [facility] Last Admin: 09/16/20 16:23 Dose: 1,334 mg Documented by: Cholecalciferol (Vitamin D 5,000 Unit Cap) 5,000 unit PO DAILY [facility] Last Admin: 09/16/20 08:47 Dose: 5,000 unit Documented by: Dextrose (D50w 25 Gm/50 Ml Vial) 12.5 gm IV PRN PRN; Protocol PRN Reason: HYPOGLYCEMIA Docusate Sodium (Docusate Na 100 Mg Cap) 100 mg PO BID [facility] Last Admin: 09/16/20 08:47 Dose: 100 mg Documented by: Doxazosin Mesylate (Doxazosin 2 Mg Tab) 2 mg PO BEDTIME [facility] Last Admin: 09/15/20 21:56 Dose: 2 mg Documented by: Furosemide (Furosemide 40 Mg Tablet) 40 mg PO BIDL [facility] Last Admin: 09/16/20 16:23 Dose: 40 mg Documented by: Glimepiride (Glimepiride 2 Mg Tablet) 4 mg PO DAILYAC [facility] Last Admin: 09/16/20 06:11 Dose: 4 mg Documented by: Glucagon (Glucagon 1 Mg/Vial) 1 mg IM 1X PRN; Protocol PRN Reason: HYPOGLYCEMIA Heparin Sodium (Porcine) (Heparin 1,000 Unit/Ml Vial) 3,000 unit IV EVERY HD [facility] Stop: 09/17/20 09:01 Last Admin: 09/13/20 10:25 Dose: 3,000 unit Documented by: Home Med (Linagliptin [Tradjenta]) 5 mg PO DAILY [facility] Last Admin: 09/16/20 08:51 Dose: Not Given Documented by: Hydralazine HCl (Hydralazine Hcl 20 Mg/Ml Vial) 10 mg IV Q6HP PRN PRN Reason: Titrate to SBP (MUST DEFINE) Last Admin: 09/14/20 12:34 Dose: 10 mg Documented by: Albumin Human (Albumin 25%) 50 mls @ 100 mls/hr IV EVERY HD [facility] Insulin Glargine (Insulin Glargine 100 Units/Ml) 30 units SQ BID [facility] Last Admin: 09/16/20 08:49 Dose: 30 units Documented by: Insulin Human Regular (Insulin -Regular Human 50 Unit/0.5 Ml Ml) 0 unit SQ ACHS [facility]; Protocol Last Admin: 09/16/20 16:30 Dose: 8 unit Documented by: Mannitol (Mannitol 25% 12.5 Gm/50 Ml Vial) 12.5 gm IV EVERY HD PRN PRN Reason: Titrate to SBP (MUST DEFINE) Melatonin (Melatonin 5 Mg Tablet) 5 mg PO BEDTIME [facility] Last Admin: 09/15/20 22:01 Dose: 5 mg Documented by: Methylprednisolone Sodium Succinate (Methylprednisolone 125 Mg Inj) 60 mg IV TID [facility] Last Admin: 09/16/20 16:22 Dose: 60 mg Documented by: Metoprolol Tartrate (Metoprolol Tar 50 Mg Tab) 50 mg PO BID [facility] Last Admin: 09/16/20 08:47 Dose: 50 mg Documented by: Ondansetron HCl (Ondansetron 4 Mg/2 Ml Vial) 4 mg IV Q6HP PRN PRN Reason: NAUSEA / VOMITING Sodium Chloride (Flush Normal Saline 10 Ml) 10 ml IV BID [facility] Last Admin: 09/16/20 08:50 Dose: 10 ml Documented by: Thiamine HCl (Thiamine Hcl 100 Mg Tablet) 100 mg PO BID [facility] Last Admin: 09/16/20 08:44 Dose: 100 mg Documented by: Vitamin B Complex/Vit C/Folic Acid (Multivitamins,Therapeut 1 Tab) 1 tab PO DAILY [facility] Last Admin: 09/16/20 08:47 Dose: 1 tab Documented by: Zinc Sulfate (Zinc Sulfate 220 Mg Cap) 220 mg PO DAILY [facility] Last Admin: 09/16/20 08:47 Dose: 220 mg Documented by: Microbiology Results 09/06/20 00:48 Blood - Blood Aerobic Blood Culture - Final No growth in 5 days. 09/06/20 00:48 Blood - Blood Anaerobic Blood Culture - Final No growth in 5 days. Assessment/ Plan: Nephrology Feeling better. Persistent dyspnea and hypoxia slowly improving No acute events overnight. Vitals, medications, blood work and imaging reviewed in the chart. General: In no apparent distress, Oriented x3, Cooperative HEENT: Atraumatic Neck: Supple, JVD distended Respiratory: Diminished Cardiovascular: Regular rate/rhythm, Edema Gastrointestinal: Soft and benign, Non-distended Musculoskeletal: No clubbing, No contractures Integumentary: No rashes, No cyanosis Neurological: Normal speech Laboratory Data (last 24 hrs) 09/06/20 09:09: PT 11.5, INR 1.00, APTT 33.8 09/06/20 09:09: Sodium 131 L, Potassium 4.6, BUN 66 H, Creatinine 12.20 H*, Glucose 80, Total Bilirubin 0.5, AST 120 H, ALT 51, Alkaline Phosphatase 128 H 09/06/20 00:48: WBC 5.00, Hgb 10.4 L, Hct 30.7 L, Plt Count 123 L Imagings Data: EXAM DESCRIPTION: Tejal Single View09/06/2020 9:47 am CLINICAL HISTORY: Shortness of breath COMPARISON: 2019 FINDINGS: Moderate bilateral pulmonary opacities. The heart is mildly enlarged IMPRESSION: Moderate bilateral pulmonary opacities could represent pneumonia or pulmonary edema Conclusions/Impression: A/P: Continue the current POC and Medications other than the changes listed. AM Labs PRN. Recommend daily weight. Please see the orders for complete details. ESRD TTS -Acute HD tomorrow Hyponatremia -HD TIW Acidosis -HD TIW HTN with CKD/ CHF -Continue Amlodipine -Continue Metoprolol -Continue Doxazosin Diastolic CHF -HD TIW -Continue Metoprolol -Continue furosemide DM II with CKD and Polyneuropathy -Continue Lantus Moderate malnutrition -Encourage nutrition -Recommend protein supplementation -Give IV Albumin with HD Anemia in CKD -Continue Retacrit DANITA/ Secondary HyperPTH -Continue Vitamin D3 Rhabdomyolysis COVID PNA -Wean Solumedrol as tolerated -Wean Oxygen supplementation as tolerated
[2020-09-17] MEDS: GLIMEPIRIDE 2 MG TABLET PO SCH (06:17)
[2020-09-17] MEDS: AMLODIPINE 10 MG TAB PO SCH (08:04)
[2020-09-17] MEDS: CALCITROL 0.25 MCG CAP PO SCH (08:04)
[2020-09-17] MEDS: CALCIUM ACETATE 667 MG TAB PO SCH ×3 (08:05→16:38)
[2020-09-17] MEDS: APIXABAN 2.5 MG TABLET PO SCH ×2 (08:05→22:01)
[2020-09-17] MEDS: MULTIVITAMINS,THERAPEUT 1 TAB PO SCH (08:05)
[2020-09-17] MEDS: VITAMIN D 5,000 UNIT CAP PO SCH (08:05)
[2020-09-17] MEDS: ZINC SULFATE 220 MG CAP PO SCH (08:05)
[2020-09-17] MEDS: THIAMINE HCL 100 MG TABLET PO SCH ×2 (08:05→22:00)
[2020-09-17] MEDS: FUROSEMIDE 40 MG TABLET PO SCH ×2 (08:05→16:39)
[2020-09-17] MEDS: INSULIN -REGULAR HUMAN 50 UNIT/0.5 ML ML SQ SCH ×4 (08:05→22:20)
[2020-09-17] MEDS: INSULIN GLARGINE 100 UNITS/ML SQ SCH ×2 (08:06→22:20)
[2020-09-17] MEDS: DOCUSATE NA 100 MG CAP PO SCH ×3 (08:06→22:01)
[2020-09-17] MEDS: HOME MED 1 EA UNK (Linagliptin [Tradjenta] 5 MG Tablet) PO SCH (08:07)
[2020-09-17] MEDS: METHYLPREDNISOLONE 125 MG INJ IV SCH ×3 (08:07→23:49)
[2020-09-17] MEDS: METOPROLOL TAR 50 MG TAB PO SCH ×2 (08:08→23:48)
--- NOTE | 2020-09-17 12:03 | P.PN ---
Date of Service: 09/16/20 Subjective Patient continues to improve. Patient denies any new complaints. Patient oxygenation continues to improve as well. Review of Systems 10-point ROS is otherwise unremarkable Physical Examination - Vital Signs Reviewed - Physical Exam General: Alert, In no apparent distress, Oriented x3 Respiratory: Diminished, Expiratory wheezes Cardiovascular: Regular rate/rhythm, Normal S1 S2, No murmurs Gastrointestinal: Normal bowel sounds, Soft and benign, Non-distended, No tenderness Musculoskeletal: No clubbing, No swelling, No tenderness Neurological: Sensation intact, Cranial nerves 3-12 intact Assessment & Plan - Problems (Diagnosis) (1) Pneumonia due to COVID-19 virus Current Visit: Yes Status: Acute (2) ESRD (end stage renal disease) Current Visit: No Status: Acute (3) History of diabetes mellitus, type II Current Visit: No Status: Chronic (4) Hypertension Current Visit: No Status: Chronic Qualifiers: Hypertension type: essential hypertension Qualified Code(s): I10 - Essential (primary) hypertension - Plan Continue with plan of care as mentioned below 1. Continue with IV steroids 2. Weaning down oxygenation. Vapotherm has decreased to a FiO2 of 60%. 3. Clinically improving and check room air O2 sats 4. Pulmonary consultation appreciated 5. Continue with albuterol inhaler therapy; 6. Monitor inflammatory markers 7. Hemodialysis per Nephrology 8. GI and DVT prophylaxis
--- NOTE | 2020-09-17 12:05 | P.PN ---
Date of Service: 09/17/20 Subjective Patient doing well with no new complaints. If oxygenation is improving. Adviced patient to get out of bed and ambulate as much as possible Review of Systems 10-point ROS is otherwise unremarkable Physical Examination - Vital Signs Reviewed - Physical Exam General: Alert, In no apparent distress, Oriented x3 Respiratory: Clear bilaterally Cardiovascular: Regular rate/rhythm, Normal S1 S2, No murmurs Gastrointestinal: Normal bowel sounds, Soft and benign, Non-distended, No tenderness Musculoskeletal: No clubbing, No swelling, No tenderness Neurological: Sensation intact, Cranial nerves 3-12 intact Assessment & Plan - Problems (Diagnosis) (1) Pneumonia due to COVID-19 virus Current Visit: Yes Status: Acute (2) ESRD (end stage renal disease) Current Visit: No Status: Acute (3) History of diabetes mellitus, type II Current Visit: No Status: Chronic (4) Hypertension Current Visit: No Status: Chronic Qualifiers: Hypertension type: essential hypertension Qualified Code(s): I10 - Essential (primary) hypertension - Plan No change in current plan of care. 1. Continue with IV steroids 2. Weaning down oxygenation. Remains on Vapotherm has decreased to a FiO2 of 50%. 3. Arrange for home oxygen over the next 48 hr 4. Pulmonary consultation appreciated 5. Continue with albuterol inhaler therapy; 6. Monitor inflammatory markers 7. Hemodialysis per Nephrology 8. GI and DVT prophylaxis
--- NOTE | 2020-09-17 15:18 | P.PN ---
Date of Service: 09/17/20 Vital Signs Temp Pulse Resp BP Pulse Ox 97.2 F 67 18 172/90 H 88 L 09/17/20 12:00 09/17/20 12:00 09/17/20 12:00 09/17/20 12:00 09/17/20 12:00 Medications Acetaminophen (Acetaminophen 500 Mg Tab) 500 mg PO Q4HP PRN PRN Reason: TEMP > 101' F Amlodipine Besylate (Amlodipine 10 Mg Tab) 10 mg PO DAILY [facility] Last Admin: 09/17/20 08:04 Dose: 10 mg Documented by: Apixaban (Apixaban 2.5 Mg Tablet) 2.5 mg PO BID [facility] Last Admin: 09/17/20 08:05 Dose: 2.5 mg Documented by: Ascorbic Acid (Ascorbic Acid 500 Mg Tablet) 500 mg PO BEDTIME [facility] Last Admin: 09/16/20 20:46 Dose: 500 mg Documented by: Atorvastatin Calcium (Atorvastatin 10 Mg Tab) 10 mg PO BEDTIME [facility] Last Admin: 09/16/20 20:44 Dose: 10 mg Documented by: Calcitriol (Calcitrol 0.25 Mcg Cap) 0.5 mcg PO DAILY [facility] Last Admin: 09/17/20 08:04 Dose: 0.5 mcg Documented by: Calcium Acetate (Ca Acetate 667 Mg Cap) 1,334 mg PO TIDWM [facility] Last Admin: 09/17/20 13:04 Dose: 1,334 mg Documented by: Cholecalciferol (Vitamin D 5,000 Unit Cap) 5,000 unit PO DAILY [facility] Last Admin: 09/17/20 08:05 Dose: 5,000 unit Documented by: Dextrose (D50w 25 Gm/50 Ml Vial) 12.5 gm IV PRN PRN; Protocol PRN Reason: HYPOGLYCEMIA Docusate Sodium (Docusate Na 100 Mg Cap) 100 mg PO BID [facility] Last Admin: 09/17/20 08:06 Dose: Not Given Documented by: Doxazosin Mesylate (Doxazosin 2 Mg Tab) 2 mg PO BEDTIME [facility] Last Admin: 09/16/20 20:41 Dose: 2 mg Documented by: Furosemide (Furosemide 40 Mg Tablet) 40 mg PO BIDL [facility] Last Admin: 09/17/20 08:05 Dose: 40 mg Documented by: Glimepiride (Glimepiride 2 Mg Tablet) 4 mg PO DAILYAC [facility] Last Admin: 09/17/20 06:17 Dose: 4 mg Documented by: Glucagon (Glucagon 1 Mg/Vial) 1 mg IM 1X PRN; Protocol PRN Reason: HYPOGLYCEMIA Heparin Sodium (Porcine) (Heparin 1,000 Unit/Ml Vial) 3,000 unit IV EVERY HD PRN PRN Reason: dialysis Home Med (Linagliptin [Tradjenta]) 5 mg PO DAILY [facility] Last Admin: 09/17/20 08:07 Dose: Not Given Documented by: Hydralazine HCl (Hydralazine Hcl 20 Mg/Ml Vial) 10 mg IV Q6HP PRN PRN Reason: Titrate to SBP (MUST DEFINE) Last Admin: 09/14/20 12:34 Dose: 10 mg Documented by: Albumin Human (Albumin 25%) 50 mls @ 100 mls/hr IV EVERY HD [facility] Insulin Glargine (Insulin Glargine 100 Units/Ml) 30 units SQ BID [facility] Last Admin: 09/17/20 08:06 Dose: 30 units Documented by: Insulin Human Regular (Insulin -Regular Human 50 Unit/0.5 Ml Ml) 0 unit SQ ACHS [facility]; Protocol Last Admin: 09/17/20 11:30 Dose: Not Given Documented by: Mannitol (Mannitol 25% 12.5 Gm/50 Ml Vial) 12.5 gm IV EVERY HD PRN PRN Reason: Titrate to SBP (MUST DEFINE) Melatonin (Melatonin 5 Mg Tablet) 5 mg PO BEDTIME [facility] Last Admin: 09/16/20 20:44 Dose: 5 mg Documented by: Methylprednisolone Sodium Succinate (Methylprednisolone 125 Mg Inj) 60 mg IV TID [facility] Last Admin: 09/17/20 13:31 Dose: 60 mg Documented by: Metoprolol Tartrate (Metoprolol Tar 50 Mg Tab) 50 mg PO BID [facility] Last Admin: 09/17/20 08:08 Dose: 50 mg Documented by: Ondansetron HCl (Ondansetron 4 Mg/2 Ml Vial) 4 mg IV Q6HP PRN PRN Reason: NAUSEA / VOMITING Sodium Chloride (Flush Normal Saline 10 Ml) 10 ml IV BID [facility] Last Admin: 09/17/20 08:07 Dose: 10 ml Documented by: Thiamine HCl (Thiamine Hcl 100 Mg Tablet) 100 mg PO BID [facility] Last Admin: 09/17/20 08:05 Dose: 100 mg Documented by: Vitamin B Complex/Vit C/Folic Acid (Multivitamins,Therapeut 1 Tab) 1 tab PO DAILY [facility] Last Admin: 09/17/20 08:05 Dose: 1 tab Documented by: Zinc Sulfate (Zinc Sulfate 220 Mg Cap) 220 mg PO DAILY [facility] Last Admin: 09/17/20 08:05 Dose: 220 mg Documented by: Microbiology Results 09/06/20 00:48 Blood - Blood Aerobic Blood Culture - Final No growth in 5 days. 09/06/20 00:48 Blood - Blood Anaerobic Blood Culture - Final No growth in 5 days. Assessment/ Plan: Nephrology Feeling better. Persistent dyspnea and hypoxia slowly improving No acute events overnight. Vitals, medications, blood work and imaging reviewed in the chart. General: In no apparent distress, Oriented x3, Cooperative HEENT: Atraumatic Neck: Supple, JVD distended Respiratory: Diminished Cardiovascular: Regular rate/rhythm, Edema Gastrointestinal: Soft and benign, Non-distended Musculoskeletal: No clubbing, No contractures Integumentary: No rashes, No cyanosis Neurological: Normal speech Laboratory Data (last 24 hrs) 09/06/20 09:09: PT 11.5, INR 1.00, APTT 33.8 09/06/20 09:09: Sodium 131 L, Potassium 4.6, BUN 66 H, Creatinine 12.20 H*, Glucose 80, Total Bilirubin 0.5, AST 120 H, ALT 51, Alkaline Phosphatase 128 H 09/06/20 00:48: WBC 5.00, Hgb 10.4 L, Hct 30.7 L, Plt Count 123 L Imagings Data: EXAM DESCRIPTION: Tejal Single View09/06/2020 9:47 am CLINICAL HISTORY: Shortness of breath COMPARISON: 2019 FINDINGS: Moderate bilateral pulmonary opacities. The heart is mildly enlarged IMPRESSION: Moderate bilateral pulmonary opacities could represent pneumonia or pulmonary edema Conclusions/Impression: A/P: Continue the current POC and Medications other than the changes listed. AM Labs PRN. Recommend daily weight. Please see the orders for complete details. ESRD TTS -Acute HD today Hyponatremia -HD TIW Acidosis -HD TIW HTN with CKD/ CHF -Continue Amlodipine -Continue Metoprolol -Continue Doxazosin Diastolic CHF -HD TIW -Continue Metoprolol -Continue furosemide DM II with CKD and Polyneuropathy -Continue Lantus Moderate malnutrition -Encourage nutrition -Start Promod -Give IV Albumin with HD Anemia in CKD -Continue Retacrit DANITA/ Secondary HyperPTH -Continue Vitamin D3 Rhabdomyolysis COVID PNA -Wean Solumedrol as tolerated -Wean Oxygen supplementation as tolerated Case reviewed with Dr. Nguyen. Discharge to home once Oxygen requirements improve.
[2020-09-17] MEDS: DOXAZOSIN 2 MG TAB PO SCH (21:00)
[2020-09-17] MEDS: MELATONIN 5 MG TABLET PO SCH ×2 (21:00→22:00)
[2020-09-17] MEDS: ATORVASTATIN 10 MG TAB PO SCH (22:01)
[2020-09-17] MEDS: ASCORBIC ACID 500 MG TABLET PO SCH (22:01)
[2020-09-18 04:33] LABS: Absolute Lymphocytes (CBC) 0.2 K/uL (0.7-4.9); Basophils % 0.1 % (0-1.3); Hematocrit 32.3 % (39.6-49.0); Lymphocytes % 1.5 % (15.3-44.8); MPV 8.5 fL (7.6-11.3); RBC Red Blood Cell Count 3.87 M/uL (4.33-5.43)
[2020-09-18 05:19] LABS: Albumin 2.2 g/dL (3.4-5.0); Bilirubin Total 0.4 mg/dL (0.2-1.0); C-Reactive Protein 6.74 mg/L (<3.00); Ferritin 1266.8 ng/mL (26-388); Potassium 4.6 mmol/L (3.5-5.1); Protein, Total 6.7 g/dL (6.4-8.2)
[2020-09-18] MEDS: GLIMEPIRIDE 2 MG TABLET PO SCH (05:59)
[2020-09-18] MEDS: INSULIN -REGULAR HUMAN 50 UNIT/0.5 ML ML SQ SCH ×4 (08:12→19:56)
[2020-09-18] MEDS: INSULIN GLARGINE 100 UNITS/ML SQ SCH ×2 (08:13→19:56)
[2020-09-18] MEDS: ZINC SULFATE 220 MG CAP PO SCH (08:14)
[2020-09-18] MEDS: AMLODIPINE 10 MG TAB PO SCH (08:14)
[2020-09-18] MEDS: THIAMINE HCL 100 MG TABLET PO SCH ×2 (08:22→19:56)
[2020-09-18] MEDS: FUROSEMIDE 40 MG TABLET PO SCH ×2 (08:22→16:28)
[2020-09-18] MEDS: CALCITROL 0.25 MCG CAP PO SCH (08:22)
[2020-09-18] MEDS: CALCIUM ACETATE 667 MG TAB PO SCH ×3 (08:23→16:28)
[2020-09-18] MEDS: HOME MED 1 EA UNK (Linagliptin [Tradjenta] 5 MG Tablet) PO SCH (08:23)
[2020-09-18] MEDS: MULTIVITAMINS,THERAPEUT 1 TAB PO SCH (08:23)
[2020-09-18] MEDS: VITAMIN D 5,000 UNIT CAP PO SCH (08:23)
[2020-09-18] MEDS: APIXABAN 2.5 MG TABLET PO SCH ×2 (08:23→20:26)
[2020-09-18] MEDS: METOPROLOL TAR 50 MG TAB PO SCH ×2 (08:23→19:55)
[2020-09-18] MEDS: METHYLPREDNISOLONE 125 MG INJ IV SCH ×3 (08:24→19:55)
[2020-09-18] MEDS: DOCUSATE NA 100 MG CAP PO SCH ×2 (08:24→19:55)
[2020-09-18] MEDS: ASCORBIC ACID 500 MG TABLET PO SCH (19:54)
[2020-09-18] MEDS: MELATONIN 5 MG TABLET PO SCH ×2 (19:55→21:00)
[2020-09-18] MEDS: DOXAZOSIN 2 MG TAB PO SCH (19:55)
[2020-09-18] MEDS: ATORVASTATIN 10 MG TAB PO SCH (19:55)
[2020-09-19 04:03] LABS: Absolute Lymphocytes (CBC) 0.2 K/uL (0.7-4.9); Basophils % 0.2 % (0-1.3); Hematocrit 32.8 % (39.6-49.0); Lymphocytes % 1.6 % (15.3-44.8); MPV 8.9 fL (7.6-11.3); RBC Red Blood Cell Count 3.93 M/uL (4.33-5.43)
[2020-09-19 04:36] LABS: Albumin 2.2 g/dL (3.4-5.0); Bilirubin Total 0.4 mg/dL (0.2-1.0); C-Reactive Protein 4.6 mg/L (<3.00); Ferritin 1286.1 ng/mL (26-388); Potassium 4.8 mmol/L (3.5-5.1); Protein, Total 6.5 g/dL (6.4-8.2)
[2020-09-19 04:48] LABS: Blood Morphology Comment NOT SEEN (NOT SEEN); Platelet Estimate ADEQ
[2020-09-19] MEDS: GLIMEPIRIDE 2 MG TABLET PO SCH (05:08)
--- NOTE | 2020-09-19 07:21 | P.PN ---
Date of Service: 09/18/20 Subjective Patient clinically is improving. Oxygenation is doing better. I switched him over to a 8 L while on nasal cannula today. He is currently satting 89-92%. We will try to get him weaned down and see how he does rest of today. Anticipate discharge over the next 24-48 hours. Review of Systems 10-point ROS is otherwise unremarkable Physical Examination - Vital Signs Reviewed - Physical Exam General: Alert, In no apparent distress, Oriented x3 Respiratory: Clear bilaterally Cardiovascular: Regular rate/rhythm, Normal S1 S2, No murmurs Gastrointestinal: Normal bowel sounds, Soft and benign, Non-distended, No tenderness Musculoskeletal: No clubbing, No swelling, No tenderness Neurological: Sensation intact, Cranial nerves 3-12 intact Assessment & Plan - Problems (Diagnosis) (1) Pneumonia due to COVID-19 virus Current Visit: Yes Status: Acute (2) ESRD (end stage renal disease) Current Visit: No Status: Acute (3) History of diabetes mellitus, type II Current Visit: No Status: Chronic (4) Hypertension Current Visit: No Status: Chronic Qualifiers: Hypertension type: essential hypertension Qualified Code(s): I10 - Essential (primary) hypertension - Plan No change in current plan of care. 1. May need to wean his IV steroids. Clinically doing well. 2. Weaning down oxygenation. Switched over to low wall nasal cannula and once he gets the 4-5 L we can discharge him home. 3. Arrange for home oxygen 4. Pulmonary consultation appreciated 5. Continue with albuterol inhaler therapy; 6. Monitor inflammatory markers 7. Hemodialysis per Nephrology 8. GI and DVT prophylaxis
[2020-09-19] MEDS: INSULIN -REGULAR HUMAN 50 UNIT/0.5 ML ML SQ SCH ×4 (07:30→21:14)
[2020-09-19] MEDS: AMLODIPINE 10 MG TAB PO SCH (08:05)
[2020-09-19] MEDS: APIXABAN 2.5 MG TABLET PO SCH ×2 (08:05→21:17)
[2020-09-19] MEDS: CALCITROL 0.25 MCG CAP PO SCH (08:06)
[2020-09-19] MEDS: DOCUSATE NA 100 MG CAP PO SCH ×2 (08:06→21:00)
[2020-09-19] MEDS: CALCIUM ACETATE 667 MG TAB PO SCH ×3 (08:06→16:24)
[2020-09-19] MEDS: THIAMINE HCL 100 MG TABLET PO SCH ×2 (08:07→21:17)
[2020-09-19] MEDS: METOPROLOL TAR 50 MG TAB PO SCH ×2 (08:07→22:12)
[2020-09-19] MEDS: FUROSEMIDE 40 MG TABLET PO SCH ×2 (08:07→16:24)
[2020-09-19] MEDS: MULTIVITAMINS,THERAPEUT 1 TAB PO SCH (08:07)
[2020-09-19] MEDS: VITAMIN D 5,000 UNIT CAP PO SCH (08:07)
[2020-09-19] MEDS: ZINC SULFATE 220 MG CAP PO SCH (08:07)
[2020-09-19] MEDS: INSULIN GLARGINE 100 UNITS/ML SQ SCH ×2 (08:08→21:14)
[2020-09-19] MEDS: METHYLPREDNISOLONE 125 MG INJ IV SCH ×3 (08:08→22:11)
[2020-09-19] MEDS: HOME MED 1 EA UNK (Linagliptin [Tradjenta] 5 MG Tablet) PO SCH (08:08)
--- NOTE | 2020-09-19 09:36 | P.PN ---
Subjective Date of Service: 09/19/20 Primary Care Provider: Dr. Davis; Nephrology-Dr. Garibay Chief Complaint: Respiratory failure Subjective: Improving, Doing well Physical Examination - Vital Signs Temperature: 97.5 F Blood Pressure: 175/96 Pulse: 70 Respirations: 16 Pulse Ox (%): 94 - Studies Medications List Reviewed: Yes Assessment & Plan Discharge Plan: Home Plan to discharge in: 24 Hours Physician Review Additional Text: Physical exam: Patient alert, cooperative. Patient has done well. Currently on 4 L per nasal cannula. Heart: Regular rate Lungs: Currently on 4 L per nasal cannula Abdomen: Soft Extremities: Good range of motion. No focal deficits. Impression: Fever, dyspnea secondary to acute respiratory failure with hypoxia related to bilateral COVID pneumonia ESRD on hemodialysis DM Type 2 with hyperglycemia HTN Anemia of chronic disease Hyperlipidemia Plan: Fever, dyspnea secondary to acute respiratory failure with hypoxia related to bilateral COVID pneumonia: Patient has done well. Patient currently on 4 L per nasal cannula. Will ambulate today. Will see how he does with 4 L. If able to ambulate well without significant drop in oxygen saturations or shortness of breath then will consider discharge today. Will reassess around lunchtime. Social work to help arrange for home oxygen and for discharge. Continue to monitor the patient closely. ESRD on hemodialysis: Nephrology consulted. Continue with dialysis as directed. Patient does dialysis every Saturday, and Saturday. DM Type 2 with hyperglycemia: A1c elevated at 8.6. Continue with medication. Continue to adjust Lantus for better diabetic control. Siding scale in place. Blood sugars better control. HTN: Will monitor and adjust appropriately. Anemia of chronic disease: Will monitor and adjust appropriately. Hyperlipidemia: Home medication restarted Time Spent Managing Pts Care (In Minutes): 55
[2020-09-19] MEDS: EPOETIN ALFA-EPBX 4,000 UNIT/ML VIAL SQ SCH (12:39)
[2020-09-19] MEDS: HYDRALAZINE HCL 20 MG/ML VIAL IV PRN (12:39)
[2020-09-19] MEDS: MELATONIN 5 MG TABLET PO SCH (21:00)
[2020-09-19] MEDS: ATORVASTATIN 10 MG TAB PO SCH (21:17)
[2020-09-19] MEDS: ASCORBIC ACID 500 MG TABLET PO SCH (21:18)
[2020-09-19] MEDS: DOXAZOSIN 2 MG TAB PO SCH (22:12)
[2020-09-20 04:12] LABS: Absolute Lymphocytes (CBC) 0.3 K/uL (0.7-4.9); Basophils % 0.5 % (0-1.3); Hematocrit 28.7 % (39.6-49.0); Lymphocytes % 2.3 % (15.3-44.8); RBC Red Blood Cell Count 3.43 M/uL (4.33-5.43)
[2020-09-20 04:42] LABS: ALT/SGPT 34 U/L (12-78); AST/SGOT 13 U/L (15-37); Albumin 2.2 g/dL (3.4-5.0); Alkaline Phosphatase 99 U/L (45-117); BUN Blood Urea Nitrogen 136 mg/dL (7-18); Bicarbonate 24 mmol/L (21-32); Bilirubin Total 0.4 mg/dL (0.2-1.0); Ferritin 1160.4 ng/mL (26-388); Glucose Level 308 mg/dL (74-106); Potassium 5.5 mmol/L (3.5-5.1); Protein, Total 5.9 g/dL (6.4-8.2); Sodium Level 135 mmol/L (136-145)
[2020-09-20 04:44] LABS: C-Reactive Protein < 2.90 mg/L (<3.00)
[2020-09-20] MEDS: HYDRALAZINE HCL 20 MG/ML VIAL IV PRN (05:00)
[2020-09-20] MEDS: GLIMEPIRIDE 2 MG TABLET PO SCH (05:00)
[2020-09-20] MEDS: METOPROLOL TAR 50 MG TAB PO SCH ×2 (08:51→21:19)
[2020-09-20] MEDS: INSULIN -REGULAR HUMAN 50 UNIT/0.5 ML ML SQ SCH ×4 (08:51→21:18)
[2020-09-20] MEDS: THIAMINE HCL 100 MG TABLET PO SCH ×2 (08:51→21:19)
[2020-09-20] MEDS: FUROSEMIDE 40 MG TABLET PO SCH ×2 (08:52→16:44)
[2020-09-20] MEDS: ZINC SULFATE 220 MG CAP PO SCH (08:52)
[2020-09-20] MEDS: CALCIUM ACETATE 667 MG TAB PO SCH ×3 (08:52→16:44)
[2020-09-20] MEDS: DOCUSATE NA 100 MG CAP PO SCH ×2 (08:52→19:23)
[2020-09-20] MEDS: VITAMIN D 5,000 UNIT CAP PO SCH (08:52)
[2020-09-20] MEDS: APIXABAN 2.5 MG TABLET PO SCH ×2 (08:52→21:18)
[2020-09-20] MEDS: MULTIVITAMINS,THERAPEUT 1 TAB PO SCH (08:52)
[2020-09-20] MEDS: METHYLPREDNISOLONE 125 MG INJ IV SCH ×3 (08:53→21:19)
[2020-09-20] MEDS: CALCITROL 0.25 MCG CAP PO SCH (08:53)
[2020-09-20] MEDS: AMLODIPINE 10 MG TAB PO SCH (08:53)
[2020-09-20] MEDS: INSULIN GLARGINE 100 UNITS/ML SQ SCH ×2 (08:55→21:17)
[2020-09-20] MEDS: HOME MED 1 EA UNK (Linagliptin [Tradjenta] 5 MG Tablet) PO SCH (08:56)
--- NOTE | 2020-09-20 12:49 | P.PN ---
Subjective Date of Service: 09/20/20 Primary Care Provider: Dr. Davis; Nephrology-Dr. Garibay Chief Complaint: Respiratory failure Subjective: Doing well Physical Examination - Vital Signs Temperature: 97 F Blood Pressure: 113/72 Pulse: 65 Respirations: 20 Pulse Ox (%): 90 - Studies Medications List Reviewed: Yes Assessment & Plan Discharge Plan: Home Plan to discharge in: 24 Hours Physician Review Additional Text: Physical exam: Patient alert, cooperative. Patient has done well. Currently on 4 L per nasal cannula. Heart: Regular rate Lungs: Currently on 4 L per nasal cannula Abdomen: Soft Extremities: Good range of motion. No focal deficits. Impression: Fever, dyspnea secondary to acute respiratory failure with hypoxia related to bilateral COVID pneumonia ESRD on hemodialysis DM Type 2 with hyperglycemia HTN Anemia of chronic disease Hyperlipidemia Plan: Fever, dyspnea secondary to acute respiratory failure with hypoxia related to bilateral COVID pneumonia: Patient has done well. Patient wanting to go home. Patient had some desaturations yesterday with ambulation. Patient currently on 4 L per nasal cannula. Will ambulate again today. Will see how he does with 4 L. If able to ambulate well without significant drop in oxygen saturations or shortness of breath then will consider discharge today. Patient also to have dialysis. Will discuss with nursing after lunchtime to see if we can possibly sent home. Social work to help arrange for home oxygen and for discharge. Continue to monitor the patient closely. ESRD on hemodialysis: Nephrology consulted. Continue with dialysis as directed. Patient does dialysis every Saturday, and Saturday. DM Type 2 with hyperglycemia: A1c elevated at 8.6. Continue with medication. Continue to adjust Lantus for better diabetic control. Siding scale in place. Blood sugars better control. HTN: Will monitor and adjust appropriately. Anemia of chronic disease: Will monitor and adjust appropriately. Hyperlipidemia: Home medication restarted Time Spent Managing Pts Care (In Minutes): 55
[2020-09-20] MEDS: MELATONIN 5 MG TABLET PO SCH (19:23)
[2020-09-20] MEDS: DOXAZOSIN 2 MG TAB PO SCH (21:18)
[2020-09-20] MEDS: ASCORBIC ACID 500 MG TABLET PO SCH (21:19)
[2020-09-20] MEDS: ATORVASTATIN 10 MG TAB PO SCH (21:19)
--- NOTE | 2020-09-20 23:15 | P.PN ---
Date of Service: 09/19/20 Vital Signs Temp Pulse Resp BP Pulse Ox 97.1 F 82 18 146/79 H 89 L 09/20/20 20:00 09/20/20 21:19 09/20/20 20:00 09/20/20 21:19 09/20/20 20:00 Medications Acetaminophen (Acetaminophen 500 Mg Tab) 500 mg PO Q4HP PRN PRN Reason: TEMP > 101' F Amlodipine Besylate (Amlodipine 10 Mg Tab) 10 mg PO DAILY [facility] Last Admin: 09/20/20 08:53 Dose: 10 mg Documented by: Apixaban (Apixaban 2.5 Mg Tablet) 2.5 mg PO BID [facility] Last Admin: 09/20/20 21:18 Dose: 2.5 mg Documented by: Ascorbic Acid (Ascorbic Acid 500 Mg Tablet) 500 mg PO BEDTIME [facility] Last Admin: 09/20/20 21:19 Dose: 500 mg Documented by: Atorvastatin Calcium (Atorvastatin 10 Mg Tab) 10 mg PO BEDTIME [facility] Last Admin: 09/20/20 21:19 Dose: 10 mg Documented by: Calcitriol (Calcitrol 0.25 Mcg Cap) 0.5 mcg PO DAILY [facility] Last Admin: 09/20/20 08:53 Dose: 0.5 mcg Documented by: Calcium Acetate (Ca Acetate 667 Mg Cap) 1,334 mg PO TIDWM [facility] Last Admin: 09/20/20 16:44 Dose: 1,334 mg Documented by: Cholecalciferol (Vitamin D 5,000 Unit Cap) 5,000 unit PO DAILY [facility] Last Admin: 09/20/20 08:52 Dose: 5,000 unit Documented by: Dextrose (D50w 25 Gm/50 Ml Vial) 12.5 gm IV PRN PRN; Protocol PRN Reason: HYPOGLYCEMIA Docusate Sodium (Docusate Na 100 Mg Cap) 100 mg PO BID [facility] Last Admin: 09/20/20 19:23 Dose: Not Given Documented by: Doxazosin Mesylate (Doxazosin 2 Mg Tab) 2 mg PO BEDTIME [facility] Last Admin: 09/20/20 21:18 Dose: 2 mg Documented by: Furosemide (Furosemide 40 Mg Tablet) 40 mg PO BIDL [facility] Last Admin: 09/20/20 16:44 Dose: 40 mg Documented by: Glimepiride (Glimepiride 2 Mg Tablet) 4 mg PO DAILYAC [facility] Last Admin: 09/20/20 05:00 Dose: 4 mg Documented by: Glucagon (Glucagon 1 Mg/Vial) 1 mg IM 1X PRN; Protocol PRN Reason: HYPOGLYCEMIA Heparin Sodium (Porcine) (Heparin 1,000 Unit/Ml Vial) 3,000 unit IV EVERY HD PRN PRN Reason: dialysis Last Admin: 09/20/20 09:25 Dose: 3,000 unit Documented by: Home Med (Linagliptin [Tradjenta]) 5 mg PO DAILY [facility] Last Admin: 09/20/20 08:56 Dose: Not Given Documented by: Hydralazine HCl (Hydralazine Hcl 20 Mg/Ml Vial) 10 mg IV Q6HP PRN PRN Reason: Titrate to SBP (MUST DEFINE) Last Admin: 09/20/20 05:00 Dose: 10 mg Documented by: Albumin Human (Albumin 25%) 50 mls @ 100 mls/hr IV EVERY HD [facility] Insulin Glargine (Insulin Glargine 100 Units/Ml) 30 units SQ BID [facility] Last Admin: 09/20/20 21:17 Dose: 30 units Documented by: Insulin Human Regular (Insulin -Regular Human 50 Unit/0.5 Ml Ml) 0 unit SQ ACHS [facility]; Protocol Last Admin: 09/20/20 21:18 Dose: 10 unit Documented by: Mannitol (Mannitol 25% 12.5 Gm/50 Ml Vial) 12.5 gm IV EVERY HD PRN PRN Reason: Titrate to SBP (MUST DEFINE) Melatonin (Melatonin 5 Mg Tablet) 5 mg PO BEDTIME [facility] Last Admin: 09/20/20 19:23 Dose: Not Given Documented by: Methylprednisolone Sodium Succinate (Methylprednisolone 125 Mg Inj) 60 mg IV TID [facility] Last Admin: 09/20/20 21:19 Dose: 60 mg Documented by: Metoprolol Tartrate (Metoprolol Tar 50 Mg Tab) 50 mg PO BID [facility] Last Admin: 09/20/20 21:19 Dose: 50 mg Documented by: Ondansetron HCl (Ondansetron 4 Mg/2 Ml Vial) 4 mg IV Q6HP PRN PRN Reason: NAUSEA / VOMITING Sodium Chloride (Flush Normal Saline 10 Ml) 10 ml IV BID [facility] Last Admin: 09/20/20 21:20 Dose: 10 ml Documented by: Thiamine HCl (Thiamine Hcl 100 Mg Tablet) 100 mg PO BID [facility] Last Admin: 09/20/20 21:19 Dose: 100 mg Documented by: Vitamin B Complex/Vit C/Folic Acid (Multivitamins,Therapeut 1 Tab) 1 tab PO DAILY [facility] Last Admin: 09/20/20 08:52 Dose: 1 tab Documented by: Zinc Sulfate (Zinc Sulfate 220 Mg Cap) 220 mg PO DAILY [facility] Last Admin: 09/20/20 08:52 Dose: 220 mg Documented by: Microbiology Results 09/06/20 00:48 Blood - Blood Aerobic Blood Culture - Final No growth in 5 days. 09/06/20 00:48 Blood - Blood Anaerobic Blood Culture - Final No growth in 5 days. Assessment/ Plan: Nephrology Feeling better. Persistent dyspnea and hypoxia slowly improving No acute events overnight. Vitals, medications, blood work and imaging reviewed in the chart. General: In no apparent distress, Oriented x3, Cooperative HEENT: Atraumatic Neck: Supple, JVD distended Respiratory: Diminished Cardiovascular: Regular rate/rhythm, Edema Gastrointestinal: Soft and benign, Non-distended Musculoskeletal: No clubbing, No contractures Integumentary: No rashes, No cyanosis Neurological: Normal speech Laboratory Data (last 24 hrs) 09/06/20 09:09: PT 11.5, INR 1.00, APTT 33.8 09/06/20 09:09: Sodium 131 L, Potassium 4.6, BUN 66 H, Creatinine 12.20 H*, Glucose 80, Total Bilirubin 0.5, AST 120 H, ALT 51, Alkaline Phosphatase 128 H 09/06/20 00:48: WBC 5.00, Hgb 10.4 L, Hct 30.7 L, Plt Count 123 L Imagings Data: EXAM DESCRIPTION: Tejal Single View09/06/2020 9:47 am CLINICAL HISTORY: Shortness of breath COMPARISON: 2019 FINDINGS: Moderate bilateral pulmonary opacities. The heart is mildly enlarged IMPRESSION: Moderate bilateral pulmonary opacities could represent pneumonia or pulmonary edema Conclusions/Impression: A/P: Continue the current POC and Medications other than the changes listed. AM Labs PRN. Recommend daily weight. Please see the orders for complete details. ESRD TTS -Acute HD today for an extra treatment Hyponatremia -HD TIW Acidosis -HD TIW HTN with CKD/ CHF -Continue Amlodipine -Continue Metoprolol -Continue Doxazosin Diastolic CHF -HD TIW -Continue Metoprolol -Continue furosemide DM II with CKD and Polyneuropathy -Continue Lantus Moderate malnutrition -Encourage nutrition -Start Promod -Give IV Albumin with HD Anemia in CKD -Continue Retacrit DANITA/ Secondary HyperPTH -Continue Vitamin D3 Rhabdomyolysis COVID PNA -Wean Solumedrol as tolerated -Wean Oxygen supplementation as tolerated Discharge to home once Oxygen requirements improve.
--- NOTE | 2020-09-20 23:20 | P.PN ---
Date of Service: 09/20/20 Vital Signs Temp Pulse Resp BP Pulse Ox 97.1 F 82 18 146/79 H 89 L 09/20/20 20:00 09/20/20 21:19 09/20/20 20:00 09/20/20 21:19 09/20/20 20:00 Medications Acetaminophen (Acetaminophen 500 Mg Tab) 500 mg PO Q4HP PRN PRN Reason: TEMP > 101' F Amlodipine Besylate (Amlodipine 10 Mg Tab) 10 mg PO DAILY [facility] Last Admin: 09/20/20 08:53 Dose: 10 mg Documented by: Apixaban (Apixaban 2.5 Mg Tablet) 2.5 mg PO BID [facility] Last Admin: 09/20/20 21:18 Dose: 2.5 mg Documented by: Ascorbic Acid (Ascorbic Acid 500 Mg Tablet) 500 mg PO BEDTIME [facility] Last Admin: 09/20/20 21:19 Dose: 500 mg Documented by: Atorvastatin Calcium (Atorvastatin 10 Mg Tab) 10 mg PO BEDTIME [facility] Last Admin: 09/20/20 21:19 Dose: 10 mg Documented by: Calcitriol (Calcitrol 0.25 Mcg Cap) 0.5 mcg PO DAILY [facility] Last Admin: 09/20/20 08:53 Dose: 0.5 mcg Documented by: Calcium Acetate (Ca Acetate 667 Mg Cap) 1,334 mg PO TIDWM [facility] Last Admin: 09/20/20 16:44 Dose: 1,334 mg Documented by: Cholecalciferol (Vitamin D 5,000 Unit Cap) 5,000 unit PO DAILY [facility] Last Admin: 09/20/20 08:52 Dose: 5,000 unit Documented by: Dextrose (D50w 25 Gm/50 Ml Vial) 12.5 gm IV PRN PRN; Protocol PRN Reason: HYPOGLYCEMIA Docusate Sodium (Docusate Na 100 Mg Cap) 100 mg PO BID [facility] Last Admin: 09/20/20 19:23 Dose: Not Given Documented by: Doxazosin Mesylate (Doxazosin 2 Mg Tab) 2 mg PO BEDTIME [facility] Last Admin: 09/20/20 21:18 Dose: 2 mg Documented by: Furosemide (Furosemide 40 Mg Tablet) 40 mg PO BIDL [facility] Last Admin: 09/20/20 16:44 Dose: 40 mg Documented by: Glimepiride (Glimepiride 2 Mg Tablet) 4 mg PO DAILYAC [facility] Last Admin: 09/20/20 05:00 Dose: 4 mg Documented by: Glucagon (Glucagon 1 Mg/Vial) 1 mg IM 1X PRN; Protocol PRN Reason: HYPOGLYCEMIA Heparin Sodium (Porcine) (Heparin 1,000 Unit/Ml Vial) 3,000 unit IV EVERY HD PRN PRN Reason: dialysis Last Admin: 09/20/20 09:25 Dose: 3,000 unit Documented by: Home Med (Linagliptin [Tradjenta]) 5 mg PO DAILY [facility] Last Admin: 09/20/20 08:56 Dose: Not Given Documented by: Hydralazine HCl (Hydralazine Hcl 20 Mg/Ml Vial) 10 mg IV Q6HP PRN PRN Reason: Titrate to SBP (MUST DEFINE) Last Admin: 09/20/20 05:00 Dose: 10 mg Documented by: Albumin Human (Albumin 25%) 50 mls @ 100 mls/hr IV EVERY HD [facility] Insulin Glargine (Insulin Glargine 100 Units/Ml) 30 units SQ BID [facility] Last Admin: 09/20/20 21:17 Dose: 30 units Documented by: Insulin Human Regular (Insulin -Regular Human 50 Unit/0.5 Ml Ml) 0 unit SQ ACHS [facility]; Protocol Last Admin: 09/20/20 21:18 Dose: 10 unit Documented by: Mannitol (Mannitol 25% 12.5 Gm/50 Ml Vial) 12.5 gm IV EVERY HD PRN PRN Reason: Titrate to SBP (MUST DEFINE) Melatonin (Melatonin 5 Mg Tablet) 5 mg PO BEDTIME [facility] Last Admin: 09/20/20 19:23 Dose: Not Given Documented by: Methylprednisolone Sodium Succinate (Methylprednisolone 125 Mg Inj) 60 mg IV TID [facility] Last Admin: 09/20/20 21:19 Dose: 60 mg Documented by: Metoprolol Tartrate (Metoprolol Tar 50 Mg Tab) 50 mg PO BID [facility] Last Admin: 09/20/20 21:19 Dose: 50 mg Documented by: Ondansetron HCl (Ondansetron 4 Mg/2 Ml Vial) 4 mg IV Q6HP PRN PRN Reason: NAUSEA / VOMITING Sodium Chloride (Flush Normal Saline 10 Ml) 10 ml IV BID [facility] Last Admin: 09/20/20 21:20 Dose: 10 ml Documented by: Thiamine HCl (Thiamine Hcl 100 Mg Tablet) 100 mg PO BID [facility] Last Admin: 09/20/20 21:19 Dose: 100 mg Documented by: Vitamin B Complex/Vit C/Folic Acid (Multivitamins,Therapeut 1 Tab) 1 tab PO DAILY [facility] Last Admin: 09/20/20 08:52 Dose: 1 tab Documented by: Zinc Sulfate (Zinc Sulfate 220 Mg Cap) 220 mg PO DAILY [facility] Last Admin: 09/20/20 08:52 Dose: 220 mg Documented by: Microbiology Results 09/06/20 00:48 Blood - Blood Aerobic Blood Culture - Final No growth in 5 days. 09/06/20 00:48 Blood - Blood Anaerobic Blood Culture - Final No growth in 5 days. Assessment/ Plan: Nephrology Feeling better and wants to go home. Persistent dyspnea and hypoxia slowly improving. Dialysis yesterday cancelled due to infiltration. No acute events overnight. Vitals, medications, blood work and imaging reviewed in the chart. General: In no apparent distress, Oriented x3, Cooperative HEENT: Atraumatic Neck: Supple, JVD distended Respiratory: Diminished Cardiovascular: Regular rate/rhythm, Edema Gastrointestinal: Soft and benign, Non-distended Musculoskeletal: No clubbing, No contractures Integumentary: No rashes, No cyanosis Neurological: Normal speech Laboratory Data (last 24 hrs) 09/06/20 09:09: PT 11.5, INR 1.00, APTT 33.8 09/06/20 09:09: Sodium 131 L, Potassium 4.6, BUN 66 H, Creatinine 12.20 H*, Glucose 80, Total Bilirubin 0.5, AST 120 H, ALT 51, Alkaline Phosphatase 128 H 09/06/20 00:48: WBC 5.00, Hgb 10.4 L, Hct 30.7 L, Plt Count 123 L Imagings Data: EXAM DESCRIPTION: Tejal Single View09/06/2020 9:47 am CLINICAL HISTORY: Shortness of breath COMPARISON: 2019 FINDINGS: Moderate bilateral pulmonary opacities. The heart is mildly enlarged IMPRESSION: Moderate bilateral pulmonary opacities could represent pneumonia or pulmonary edema Conclusions/Impression: A/P: Continue the current POC and Medications other than the changes listed. AM Labs PRN. Recommend daily weight. Please see the orders for complete details. ESRD TTS -Acute HD today Hyponatremia -HD TIW Acidosis -HD TIW HTN with CKD/ CHF -Continue Amlodipine -Continue Metoprolol -Continue Doxazosin Diastolic CHF -HD TIW -Continue Metoprolol -Continue furosemide DM II with CKD and Polyneuropathy -Continue Lantus Moderate malnutrition -Encourage nutrition -Continue Promod -Give IV Albumin with HD Anemia in CKD -Continue Retacrit DANITA/ Secondary HyperPTH -Continue Vitamin D3 Rhabdomyolysis COVID PNA -Wean Solumedrol as tolerated -Wean Oxygen supplementation as tolerated Discharge to home once Oxygen requirements improve.
[2020-09-21] MEDS: CALCITROL 0.25 MCG CAP PO SCH (09:00)
[2020-09-21] MEDS: HOME MED 1 EA UNK (Linagliptin [Tradjenta] 5 MG Tablet) PO SCH (09:00)
[2020-09-21] MEDS: THIAMINE HCL 100 MG TABLET PO SCH ×2 (09:15→20:51)
[2020-09-21] MEDS: CALCIUM ACETATE 667 MG TAB PO SCH ×3 (09:15→18:08)
[2020-09-21] MEDS: DOCUSATE NA 100 MG CAP PO SCH ×2 (09:15→20:52)
[2020-09-21] MEDS: METOPROLOL TAR 50 MG TAB PO SCH ×2 (09:15→20:52)
[2020-09-21] MEDS: MULTIVITAMINS,THERAPEUT 1 TAB PO SCH (09:15)
[2020-09-21] MEDS: AMLODIPINE 10 MG TAB PO SCH (09:16)
[2020-09-21] MEDS: VITAMIN D 5,000 UNIT CAP PO SCH (09:16)
[2020-09-21] MEDS: FUROSEMIDE 40 MG TABLET PO SCH ×2 (09:16→18:07)
[2020-09-21] MEDS: ZINC SULFATE 220 MG CAP PO SCH (09:16)
[2020-09-21] MEDS: METHYLPREDNISOLONE 125 MG INJ IV SCH ×3 (09:16→20:53)
[2020-09-21] MEDS: APIXABAN 2.5 MG TABLET PO SCH ×2 (09:16→20:51)
[2020-09-21] MEDS: GLIMEPIRIDE 2 MG TABLET PO SCH (09:16)
[2020-09-21] MEDS: INSULIN GLARGINE 100 UNITS/ML SQ SCH ×2 (09:17→21:11)
[2020-09-21] MEDS: INSULIN -REGULAR HUMAN 50 UNIT/0.5 ML ML SQ SCH ×4 (09:17→21:11)
--- NOTE | 2020-09-21 11:04 | P.PN ---
Subjective Date of Service: 09/21/20 Primary Care Provider: Dr. Davis; Nephrology-Dr. Garibay Chief Complaint: Respiratory failure Subjective: Doing well Physical Examination - Vital Signs Temperature: 97.6 F Blood Pressure: 152/82 Pulse: 78 Respirations: 19 Pulse Ox (%): 90 - Studies Medications List Reviewed: Yes Assessment & Plan Discharge Plan: Home Plan to discharge in: 24 Hours Physician Review Additional Text: Physical exam: Patient alert, cooperative. Patient has done well. Currently on 4 L per nasal cannula. Wants to go home. Had some desaturations in oxygen yesterday with ambulation Heart: Regular rate Lungs: Currently on 4 L per nasal cannula Abdomen: Soft Extremities: Good range of motion. No focal deficits. Impression: Fever, dyspnea secondary to acute respiratory failure with hypoxia related to bilateral COVID pneumonia ESRD on hemodialysis DM Type 2 with hyperglycemia HTN Anemia of chronic disease Hyperlipidemia Plan: Fever, dyspnea secondary to acute respiratory failure with hypoxia related to bilateral COVID pneumonia: Patient continues to do better. Still on 4 L. He desires to go home. Patient had some desaturations yesterday with ambulation. Will ambulate again today. Will see how he does with 4 L. If able to ambulate well without significant drop in oxygen saturations or shortness of breath then will consider discharge today. Patient also to have dialysis. Will discuss with nursing after lunchtime to see if we can possibly sent home. Social work to help arrange for home oxygen and for discharge. Continue to monitor the patient closely. ESRD on hemodialysis: Nephrology consulted. Continue with dialysis as directed. Patient does dialysis every Saturday, and Saturday. DM Type 2 with hyperglycemia: A1c elevated at 8.6. Continue with medication. Continue to adjust Lantus for better diabetic control. Siding scale in place. Blood sugars better control. HTN: Will monitor and adjust appropriately. Anemia of chronic disease: Will monitor and adjust appropriately. Hyperlipidemia: Home medication restarted Time Spent Managing Pts Care (In Minutes): 55
[2020-09-21] MEDS: EPOETIN ALFA-EPBX 4,000 UNIT/ML VIAL SQ SCH (16:01)
[2020-09-21] MEDS: ASCORBIC ACID 500 MG TABLET PO SCH (20:51)
[2020-09-21] MEDS: DOXAZOSIN 2 MG TAB PO SCH (20:51)
[2020-09-21] MEDS: ATORVASTATIN 10 MG TAB PO SCH (20:52)
[2020-09-21] MEDS: MELATONIN 5 MG TABLET PO SCH (20:52)
[2020-09-22] MEDS: INSULIN -REGULAR HUMAN 50 UNIT/0.5 ML ML SQ SCH ×4 (07:30→21:14)
[2020-09-22] MEDS: CALCITROL 0.25 MCG CAP PO SCH (09:00)
[2020-09-22] MEDS: DOCUSATE NA 100 MG CAP PO SCH ×2 (09:00→21:13)
[2020-09-22] MEDS: HOME MED 1 EA UNK (Linagliptin [Tradjenta] 5 MG Tablet) PO SCH (09:00)
[2020-09-22] MEDS ORDERED: HEPARIN 5000 UNIT/ML 1 ML VIAL ONE (09:09)
[2020-09-22] MEDS: THIAMINE HCL 100 MG TABLET PO SCH ×2 (09:40→21:12)
[2020-09-22] MEDS: AMLODIPINE 10 MG TAB PO SCH (09:40)
[2020-09-22] MEDS: APIXABAN 2.5 MG TABLET PO SCH ×2 (09:40→21:13)
[2020-09-22] MEDS: CALCIUM ACETATE 667 MG TAB PO SCH ×3 (09:40→17:53)
[2020-09-22] MEDS: GLIMEPIRIDE 2 MG TABLET PO SCH (09:40)
[2020-09-22] MEDS: METOPROLOL TAR 50 MG TAB PO SCH ×2 (09:40→21:16)
[2020-09-22] MEDS: ZINC SULFATE 220 MG CAP PO SCH (09:41)
[2020-09-22] MEDS: MULTIVITAMINS,THERAPEUT 1 TAB PO SCH (09:41)
[2020-09-22] MEDS: VITAMIN D 5,000 UNIT CAP PO SCH (09:41)
[2020-09-22] MEDS: METHYLPREDNISOLONE 125 MG INJ IV SCH ×3 (09:41→21:15)
[2020-09-22] MEDS: FUROSEMIDE 40 MG TABLET PO SCH ×2 (09:41→17:53)
[2020-09-22] MEDS: INSULIN GLARGINE 100 UNITS/ML SQ SCH ×2 (09:43→21:17)
--- NOTE | 2020-09-22 16:55 | P.PN ---
Subjective Date of Service: 09/22/20 Primary Care Provider: Dr. Davis; Nephrology-Dr. Garibay Chief Complaint: Respiratory failure Subjective: Improving, Doing well Physical Examination - Vital Signs Temperature: 97.2 F Blood Pressure: 104/71 Pulse: 66 Respirations: 20 Pulse Ox (%): 96 - Studies Medications List Reviewed: Yes Assessment & Plan Discharge Plan: Home Plan to discharge in: 24 Hours Physician Review Additional Text: Physical exam: Patient alert, cooperative. Patient has done well. Currently on 4 L per nasal cannula. Patient required more oxygen last night after walking. Wants to go home. Had some desaturations in oxygen yesterday with ambulation Heart: Regular rate Lungs: Currently on 4 L per nasal cannula Abdomen: Soft Extremities: Good range of motion. No focal deficits. Impression: Fever, dyspnea secondary to acute respiratory failure with hypoxia related to bilateral COVID pneumonia ESRD on hemodialysis DM Type 2 with hyperglycemia HTN Anemia of chronic disease Hyperlipidemia Plan: Fever, dyspnea secondary to acute respiratory failure with hypoxia related to bilateral COVID pneumonia: Patient continues to do better. Still on 4 L. He desires to go home. Patient had some desaturations yesterday with ambulation. Will ambulate again today. Will see how he does with 4 L. If able to ambulate well without significant drop in oxygen saturations or shortness of breath then will consider discharge today. Patient also to have dialysis. Will discuss with nursing after lunchtime to see if we can possibly sent home. Social work to help arrange for home oxygen and for discharge. Continue to monitor the patient closely. ESRD on hemodialysis: Nephrology consulted. Patient to have dialysis today. Will assess oxygenation and ambulation after dialysis. Patient does dialysis every Saturday, and Saturday. DM Type 2 with hyperglycemia: A1c elevated at 8.6. Continue with medication. Continue to adjust Lantus for better diabetic control. Siding scale in place. Blood sugars better control. HTN: Will monitor and adjust appropriately. Anemia of chronic disease: Will monitor and adjust appropriately. Hyperlipidemia: Home medication restarted Time Spent Managing Pts Care (In Minutes): 55
--- NOTE | 2020-09-22 20:28 | P.PN ---
Date of Service: 09/21/20 Vital Signs Temp Pulse Resp BP Pulse Ox 97.2 F 66 20 104/71 96 09/22/20 16:54 09/22/20 16:54 09/22/20 16:54 09/22/20 16:54 09/22/20 16:54 Medications Acetaminophen (Acetaminophen 500 Mg Tab) 500 mg PO Q4HP PRN PRN Reason: TEMP > 101' F Amlodipine Besylate (Amlodipine 10 Mg Tab) 10 mg PO DAILY [facility] Last Admin: 09/22/20 09:40 Dose: 10 mg Documented by: Apixaban (Apixaban 2.5 Mg Tablet) 2.5 mg PO BID [facility] Last Admin: 09/22/20 09:40 Dose: 2.5 mg Documented by: Ascorbic Acid (Ascorbic Acid 500 Mg Tablet) 500 mg PO BEDTIME [facility] Last Admin: 09/21/20 20:51 Dose: 500 mg Documented by: Atorvastatin Calcium (Atorvastatin 10 Mg Tab) 10 mg PO BEDTIME [facility] Last Admin: 09/21/20 20:52 Dose: 10 mg Documented by: Calcitriol (Calcitrol 0.25 Mcg Cap) 0.5 mcg PO DAILY [facility] Last Admin: 09/22/20 09:00 Dose: 0.5 mcg Documented by: Calcium Acetate (Ca Acetate 667 Mg Cap) 1,334 mg PO TIDWM [facility] Last Admin: 09/22/20 17:53 Dose: 1,334 mg Documented by: Cholecalciferol (Vitamin D 5,000 Unit Cap) 5,000 unit PO DAILY [facility] Last Admin: 09/22/20 09:41 Dose: 5,000 unit Documented by: Dextrose (D50w 25 Gm/50 Ml Vial) 12.5 gm IV PRN PRN; Protocol PRN Reason: HYPOGLYCEMIA Docusate Sodium (Docusate Na 100 Mg Cap) 100 mg PO BID [facility] Last Admin: 09/22/20 09:00 Dose: Not Given Documented by: Doxazosin Mesylate (Doxazosin 2 Mg Tab) 2 mg PO BEDTIME [facility] Last Admin: 09/21/20 20:51 Dose: 2 mg Documented by: Furosemide (Furosemide 40 Mg Tablet) 40 mg PO BIDL [facility] Last Admin: 09/22/20 17:53 Dose: 40 mg Documented by: Glimepiride (Glimepiride 2 Mg Tablet) 4 mg PO DAILYAC [facility] Last Admin: 09/22/20 09:40 Dose: 4 mg Documented by: Glucagon (Glucagon 1 Mg/Vial) 1 mg IM 1X PRN; Protocol PRN Reason: HYPOGLYCEMIA Heparin Sodium (Porcine) (Heparin 1,000 Unit/Ml Vial) 3,000 unit IV EVERY HD PRN PRN Reason: dialysis Last Admin: 09/22/20 08:55 Dose: 3,000 unit Documented by: Home Med (Linagliptin [Tradjenta]) 5 mg PO DAILY [facility] Last Admin: 09/22/20 09:00 Dose: Not Given Documented by: Hydralazine HCl (Hydralazine Hcl 20 Mg/Ml Vial) 10 mg IV Q6HP PRN PRN Reason: Titrate to SBP (MUST DEFINE) Last Admin: 09/20/20 05:00 Dose: 10 mg Documented by: Albumin Human (Albumin 25%) 50 mls @ 100 mls/hr IV EVERY HD [facility] Insulin Glargine (Insulin Glargine 100 Units/Ml) 30 units SQ BID [facility] Last Admin: 09/22/20 09:43 Dose: 30 units Documented by: Insulin Human Regular (Insulin -Regular Human 50 Unit/0.5 Ml Ml) 0 unit SQ ACHS [facility]; Protocol Last Admin: 09/22/20 17:28 Dose: 8 unit Documented by: Mannitol (Mannitol 25% 12.5 Gm/50 Ml Vial) 12.5 gm IV EVERY HD PRN PRN Reason: Titrate to SBP (MUST DEFINE) Melatonin (Melatonin 5 Mg Tablet) 5 mg PO BEDTIME [facility] Last Admin: 09/21/20 20:52 Dose: 5 mg Documented by: Methylprednisolone Sodium Succinate (Methylprednisolone 125 Mg Inj) 60 mg IV TID [facility] Last Admin: 09/22/20 13:55 Dose: 60 mg Documented by: Metoprolol Tartrate (Metoprolol Tar 50 Mg Tab) 50 mg PO BID [facility] Last Admin: 09/22/20 09:40 Dose: 50 mg Documented by: Ondansetron HCl (Ondansetron 4 Mg/2 Ml Vial) 4 mg IV Q6HP PRN PRN Reason: NAUSEA / VOMITING Sodium Chloride (Flush Normal Saline 10 Ml) 10 ml IV BID [facility] Last Admin: 09/22/20 09:42 Dose: 10 ml Documented by: Thiamine HCl (Thiamine Hcl 100 Mg Tablet) 100 mg PO BID [facility] Last Admin: 09/22/20 09:40 Dose: 100 mg Documented by: Vitamin B Complex/Vit C/Folic Acid (Multivitamins,Therapeut 1 Tab) 1 tab PO DAILY [facility] Last Admin: 09/22/20 09:41 Dose: 1 tab Documented by: Zinc Sulfate (Zinc Sulfate 220 Mg Cap) 220 mg PO DAILY [facility] Last Admin: 09/22/20 09:41 Dose: 220 mg Documented by: Microbiology Results 09/06/20 00:48 Blood - Blood Aerobic Blood Culture - Final No growth in 5 days. 09/06/20 00:48 Blood - Blood Anaerobic Blood Culture - Final No growth in 5 days. Assessment/ Plan: Nephrology Feeling better and wants to go home. Persistent dyspnea and hypoxia slowly improving. No acute events overnight. Vitals, medications, blood work and imaging reviewed in the chart. General: In no apparent distress, Oriented x3, Cooperative HEENT: Atraumatic Neck: Supple, JVD distended Respiratory: Diminished Cardiovascular: Regular rate/rhythm, Edema Gastrointestinal: Soft and benign, Non-distended Musculoskeletal: No clubbing, No contractures Integumentary: No rashes, No cyanosis Neurological: Normal speech Laboratory Data (last 24 hrs) 09/06/20 09:09: PT 11.5, INR 1.00, APTT 33.8 09/06/20 09:09: Sodium 131 L, Potassium 4.6, BUN 66 H, Creatinine 12.20 H*, Glucose 80, Total Bilirubin 0.5, AST 120 H, ALT 51, Alkaline Phosphatase 128 H 09/06/20 00:48: WBC 5.00, Hgb 10.4 L, Hct 30.7 L, Plt Count 123 L Imagings Data: EXAM DESCRIPTION: Tejal Single View09/06/2020 9:47 am CLINICAL HISTORY: Shortness of breath COMPARISON: 2019 FINDINGS: Moderate bilateral pulmonary opacities. The heart is mildly enlarged IMPRESSION: Moderate bilateral pulmonary opacities could represent pneumonia or pulmonary edema Conclusions/Impression: A/P: Continue the current POC and Medications other than the changes listed. AM Labs PRN. Recommend daily weight. Please see the orders for complete details. ESRD TTS -Acute HD TIW -Will give extra treatment as tolerated Hyponatremia -HD TIW Acidosis -HD TIW HTN with CKD/ CHF -Continue Amlodipine -Continue Metoprolol -Continue Doxazosin Diastolic CHF -HD TIW -Continue Metoprolol -Continue furosemide DM II with CKD and Polyneuropathy -Continue Lantus Moderate malnutrition -Encourage nutrition -Continue Promod -Give IV Albumin with HD Anemia in CKD -Continue Retacrit DANITA/ Secondary HyperPTH -Continue Vitamin D3 Rhabdomyolysis COVID PNA -Wean Solumedrol as tolerated -Wean Oxygen supplementation as tolerated Discharge to home once Oxygen requirements improve. Case reviewed with Dr. Morgan
--- NOTE | 2020-09-22 20:32 | P.PN ---
Date of Service: 09/22/20 Vital Signs Temp Pulse Resp BP Pulse Ox 97.2 F 66 20 104/71 96 09/22/20 16:54 09/22/20 16:54 09/22/20 16:54 09/22/20 16:54 09/22/20 16:54 Medications Acetaminophen (Acetaminophen 500 Mg Tab) 500 mg PO Q4HP PRN PRN Reason: TEMP > 101' F Amlodipine Besylate (Amlodipine 10 Mg Tab) 10 mg PO DAILY [facility] Last Admin: 09/22/20 09:40 Dose: 10 mg Documented by: Apixaban (Apixaban 2.5 Mg Tablet) 2.5 mg PO BID [facility] Last Admin: 09/22/20 09:40 Dose: 2.5 mg Documented by: Ascorbic Acid (Ascorbic Acid 500 Mg Tablet) 500 mg PO BEDTIME [facility] Last Admin: 09/21/20 20:51 Dose: 500 mg Documented by: Atorvastatin Calcium (Atorvastatin 10 Mg Tab) 10 mg PO BEDTIME [facility] Last Admin: 09/21/20 20:52 Dose: 10 mg Documented by: Calcitriol (Calcitrol 0.25 Mcg Cap) 0.5 mcg PO DAILY [facility] Last Admin: 09/22/20 09:00 Dose: 0.5 mcg Documented by: Calcium Acetate (Ca Acetate 667 Mg Cap) 1,334 mg PO TIDWM [facility] Last Admin: 09/22/20 17:53 Dose: 1,334 mg Documented by: Cholecalciferol (Vitamin D 5,000 Unit Cap) 5,000 unit PO DAILY [facility] Last Admin: 09/22/20 09:41 Dose: 5,000 unit Documented by: Dextrose (D50w 25 Gm/50 Ml Vial) 12.5 gm IV PRN PRN; Protocol PRN Reason: HYPOGLYCEMIA Docusate Sodium (Docusate Na 100 Mg Cap) 100 mg PO BID [facility] Last Admin: 09/22/20 09:00 Dose: Not Given Documented by: Doxazosin Mesylate (Doxazosin 2 Mg Tab) 2 mg PO BEDTIME [facility] Last Admin: 09/21/20 20:51 Dose: 2 mg Documented by: Furosemide (Furosemide 40 Mg Tablet) 40 mg PO BIDL [facility] Last Admin: 09/22/20 17:53 Dose: 40 mg Documented by: Glimepiride (Glimepiride 2 Mg Tablet) 4 mg PO DAILYAC [facility] Last Admin: 09/22/20 09:40 Dose: 4 mg Documented by: Glucagon (Glucagon 1 Mg/Vial) 1 mg IM 1X PRN; Protocol PRN Reason: HYPOGLYCEMIA Heparin Sodium (Porcine) (Heparin 1,000 Unit/Ml Vial) 3,000 unit IV EVERY HD PRN PRN Reason: dialysis Last Admin: 09/22/20 08:55 Dose: 3,000 unit Documented by: Home Med (Linagliptin [Tradjenta]) 5 mg PO DAILY [facility] Last Admin: 09/22/20 09:00 Dose: Not Given Documented by: Hydralazine HCl (Hydralazine Hcl 20 Mg/Ml Vial) 10 mg IV Q6HP PRN PRN Reason: Titrate to SBP (MUST DEFINE) Last Admin: 09/20/20 05:00 Dose: 10 mg Documented by: Albumin Human (Albumin 25%) 50 mls @ 100 mls/hr IV EVERY HD [facility] Insulin Glargine (Insulin Glargine 100 Units/Ml) 30 units SQ BID [facility] Last Admin: 09/22/20 09:43 Dose: 30 units Documented by: Insulin Human Regular (Insulin -Regular Human 50 Unit/0.5 Ml Ml) 0 unit SQ ACHS [facility]; Protocol Last Admin: 09/22/20 17:28 Dose: 8 unit Documented by: Mannitol (Mannitol 25% 12.5 Gm/50 Ml Vial) 12.5 gm IV EVERY HD PRN PRN Reason: Titrate to SBP (MUST DEFINE) Melatonin (Melatonin 5 Mg Tablet) 5 mg PO BEDTIME [facility] Last Admin: 09/21/20 20:52 Dose: 5 mg Documented by: Methylprednisolone Sodium Succinate (Methylprednisolone 125 Mg Inj) 60 mg IV TID [facility] Last Admin: 09/22/20 13:55 Dose: 60 mg Documented by: Metoprolol Tartrate (Metoprolol Tar 50 Mg Tab) 50 mg PO BID [facility] Last Admin: 09/22/20 09:40 Dose: 50 mg Documented by: Ondansetron HCl (Ondansetron 4 Mg/2 Ml Vial) 4 mg IV Q6HP PRN PRN Reason: NAUSEA / VOMITING Sodium Chloride (Flush Normal Saline 10 Ml) 10 ml IV BID [facility] Last Admin: 09/22/20 09:42 Dose: 10 ml Documented by: Thiamine HCl (Thiamine Hcl 100 Mg Tablet) 100 mg PO BID [facility] Last Admin: 09/22/20 09:40 Dose: 100 mg Documented by: Vitamin B Complex/Vit C/Folic Acid (Multivitamins,Therapeut 1 Tab) 1 tab PO DAILY [facility] Last Admin: 09/22/20 09:41 Dose: 1 tab Documented by: Zinc Sulfate (Zinc Sulfate 220 Mg Cap) 220 mg PO DAILY [facility] Last Admin: 09/22/20 09:41 Dose: 220 mg Documented by: Microbiology Results 09/06/20 00:48 Blood - Blood Aerobic Blood Culture - Final No growth in 5 days. 09/06/20 00:48 Blood - Blood Anaerobic Blood Culture - Final No growth in 5 days. Assessment/ Plan: Nephrology Feeling better and wants to go home. Persistent dyspnea and hypoxia slowly improving. No acute events overnight. Vitals, medications, blood work and imaging reviewed in the chart. General: In no apparent distress, Oriented x3, Cooperative HEENT: Atraumatic Neck: Supple, JVD distended Respiratory: Diminished Cardiovascular: Regular rate/rhythm, Edema Gastrointestinal: Soft and benign, Non-distended Musculoskeletal: No clubbing, No contractures Integumentary: No rashes, No cyanosis Neurological: Normal speech Laboratory Data (last 24 hrs) 09/06/20 09:09: PT 11.5, INR 1.00, APTT 33.8 09/06/20 09:09: Sodium 131 L, Potassium 4.6, BUN 66 H, Creatinine 12.20 H*, Glucose 80, Total Bilirubin 0.5, AST 120 H, ALT 51, Alkaline Phosphatase 128 H 09/06/20 00:48: WBC 5.00, Hgb 10.4 L, Hct 30.7 L, Plt Count 123 L Imagings Data: EXAM DESCRIPTION: Tejal Single View09/06/2020 9:47 am CLINICAL HISTORY: Shortness of breath COMPARISON: 2019 FINDINGS: Moderate bilateral pulmonary opacities. The heart is mildly enlarged IMPRESSION: Moderate bilateral pulmonary opacities could represent pneumonia or pulmonary edema Conclusions/Impression: A/P: Continue the current POC and Medications other than the changes listed. AM Labs PRN. Recommend daily weight. Please see the orders for complete details. ESRD TTS -Acute HD TIW -Seen and examined at the start of HD today. Hyponatremia -HD TIW Acidosis -HD TIW HTN with CKD/ CHF -Continue Amlodipine -Continue Metoprolol -Continue Doxazosin Diastolic CHF -HD TIW -Continue Metoprolol -Continue furosemide DM II with CKD and Polyneuropathy -Continue Lantus Moderate malnutrition -Encourage nutrition -Continue Promod -Give IV Albumin with HD Anemia in CKD -Continue Retacrit DANITA/ Secondary HyperPTH -Continue Vitamin D3 Rhabdomyolysis COVID PNA -Wean Solumedrol as tolerated -Wean Oxygen supplementation as tolerated Discharge to home once Oxygen requirements improve. Case reviewed with Dr. Morgan
[2020-09-22] MEDS: ATORVASTATIN 10 MG TAB PO SCH (21:12)
[2020-09-22] MEDS: DOXAZOSIN 2 MG TAB PO SCH (21:12)
[2020-09-22] MEDS: ASCORBIC ACID 500 MG TABLET PO SCH (21:12)
[2020-09-22] MEDS: MELATONIN 5 MG TABLET PO SCH (21:13)
[2020-09-23 05:03] LABS: Absolute Lymphocytes (CBC) 0.2 K/uL (0.7-4.9); Basophils % 0.2 % (0-1.3); Hematocrit 26.7 % (39.6-49.0); Lymphocytes % 1.8 % (15.3-44.8); MPV 9.1 fL (7.6-11.3); RBC Red Blood Cell Count 3.16 M/uL (4.33-5.43)
[2020-09-23] MEDS: GLIMEPIRIDE 2 MG TABLET PO SCH ×3 (05:44→09:34)
[2020-09-23 05:57] LABS: BUN Blood Urea Nitrogen 79 mg/dL (7-18); Bicarbonate 26 mmol/L (21-32); Ferritin 1060.5 ng/mL (26-388); Glucose Level 268 mg/dL (74-106); Magnesium 2.4 mg/dL (1.8-2.4); Potassium 5.1 mmol/L (3.5-5.1); Sodium Level 140 mmol/L (136-145)
[2020-09-23 06:03] LABS: C-Reactive Protein < 2.90 mg/L (<3.00)
--- NOTE | 2020-09-23 07:42 | RAD REPORT ---
EXAM DESCRIPTION: Tejal Single View3 6:43 am CLINICAL HISTORY: Shortness of breath COMPARISON: September 11, 2020 FINDINGS: Worsening in moderate bilateral pulmonary opacities. Heart remains enlarged IMPRESSION: Worsening in bilateral pneumonia
[2020-09-23] MEDS ORDERED: SOD POLYSTYREN SUL 15 GM/60 ML UCUP PO ONE (07:51)
[2020-09-23] MEDS: INSULIN -REGULAR HUMAN 50 UNIT/0.5 ML ML SQ SCH ×4 (08:25→20:42)
[2020-09-23] MEDS: ACETYLCYST 20% 4 ML VIAL IH SCH ×3 (08:45→20:00)
[2020-09-23] MEDS: HOME MED 1 EA UNK (Linagliptin [Tradjenta] 5 MG Tablet) PO SCH (09:00)
[2020-09-23] MEDS: DOCUSATE NA 100 MG CAP PO SCH ×2 (09:00→20:40)
[2020-09-23] MEDS: CALCITROL 0.25 MCG CAP PO SCH (09:00)
[2020-09-23] MEDS: METHYLPREDNISOLONE 125 MG INJ IV SCH ×3 (09:18→20:40)
[2020-09-23] MEDS: EPOETIN ALFA-EPBX 4,000 UNIT/ML VIAL SQ SCH (09:19)
[2020-09-23] MEDS: VITAMIN D 5,000 UNIT CAP PO SCH (09:19)
[2020-09-23] MEDS: FUROSEMIDE 40 MG TABLET PO SCH ×2 (09:20→16:57)
[2020-09-23] MEDS: AMLODIPINE 10 MG TAB PO SCH (09:20)
[2020-09-23] MEDS: APIXABAN 2.5 MG TABLET PO SCH ×2 (09:20→20:40)
[2020-09-23] MEDS: CALCIUM ACETATE 667 MG TAB PO SCH ×3 (09:20→16:57)
[2020-09-23] MEDS: ZINC SULFATE 220 MG CAP PO SCH (09:20)
[2020-09-23] MEDS: THIAMINE HCL 100 MG TABLET PO SCH ×2 (09:20→20:42)
[2020-09-23] MEDS: MULTIVITAMINS,THERAPEUT 1 TAB PO SCH (09:20)
[2020-09-23] MEDS: INSULIN GLARGINE 100 UNITS/ML SQ SCH ×2 (09:21→20:41)
[2020-09-23] MEDS: METOPROLOL TAR 50 MG TAB PO SCH ×2 (09:21→20:41)
[2020-09-23 12:12] LABS: Blood Morphology Comment NOT SEEN (NOT SEEN); Platelet Estimate DECR; White Blood Cell Scan OK (OK)
--- NOTE | 2020-09-23 13:42 | P.PN ---
Subjective Date of Service: 09/23/20 Primary Care Provider: Dr. Davis; Nephrology-Dr. Garibay Chief Complaint: Respiratory failure Subjective: Other (Patient still requiring above 4 L per nasal cannula.) Physical Examination - Vital Signs Temperature: 97 F Blood Pressure: 135/80 Pulse: 64 Respirations: 16 Pulse Ox (%): 90 - Studies Medications List Reviewed: Yes Assessment & Plan Discharge Plan: Home Plan to discharge in: 72 Hours Physician Review Additional Text: Physical exam: Patient alert, cooperative. Patient has done well. Currently on 7 L per nasal cannula. Patient required more oxygen last night after walking. Wants to go home. Had some desaturations in oxygen yesterday with ambulation Heart: Regular rate Lungs: Currently on 7 L per nasal cannula Abdomen: Soft Extremities: Good range of motion. No focal deficits. Impression: Fever, dyspnea secondary to acute respiratory failure with hypoxia related to bilateral COVID pneumonia ESRD on hemodialysis DM Type 2 with hyperglycemia HTN Anemia of chronic disease Hyperlipidemia Plan: Fever, dyspnea secondary to acute respiratory failure with hypoxia related to bilateral COVID pneumonia: Patient still continues to require oxygen. Currently on 7 L per nasal cannula. Will try to decrease oxygen use. Spoke with Pulmonary and Nephrology. Nephrology plans to add Mucomyst. Will add albuterol, Atrovent and Pulmicort. Continue monitor and adjust appropriately. Will continue to try to wean down below 4 L per nasal cannula. ESRD on hemodialysis: Nephrology consulted. Patient to have dialysis today. Will assess oxygenation and ambulation after dialysis. Patient does dialysis every Saturday, and Saturday. DM Type 2 with hyperglycemia: A1c elevated at 8.6. Continue with medication. Continue to adjust Lantus for better diabetic control. Siding scale in place. Blood sugars better control. HTN: Will monitor and adjust appropriately. Anemia of chronic disease: Will monitor and adjust appropriately. Hyperlipidemia: Home medication restarted Time Spent Managing Pts Care (In Minutes): 55
[2020-09-23] MEDS: IPRATROPIUM BROM 0.5MG/2.5ML NEB PRN (14:40)
[2020-09-23] MEDS: DOXAZOSIN 2 MG TAB PO SCH (20:40)
[2020-09-23] MEDS: ASCORBIC ACID 500 MG TABLET PO SCH (20:40)
[2020-09-23] MEDS: ATORVASTATIN 10 MG TAB PO SCH (20:40)
[2020-09-23] MEDS: MELATONIN 5 MG TABLET PO SCH (20:41)
[2020-09-23] MEDS: BUDESONIDE 0.25 MG/2 ML NEB NEB SCH (21:25)
--- NOTE | 2020-09-23 22:08 | P.PN ---
Date of Service: 09/23/20 Vital Signs Temp Pulse Resp BP Pulse Ox 96.9 F 73 19 142/67 H 90 L 09/23/20 20:00 09/23/20 20:41 09/23/20 20:00 09/23/20 20:41 09/23/20 20:00 Medications Acetaminophen (Acetaminophen 500 Mg Tab) 500 mg PO Q4HP PRN PRN Reason: TEMP > 101' F Acetylcysteine (Acetylcyst 20% 4 Ml Vial) 4 ml IH [id number] [facility] Last Admin: 09/23/20 20:00 Dose: Not Given Documented by: Albuterol Sulfate (Albuterol 2.5 Mg/3 Ml Neb Samanta) 2.5 mg NEB Q6HP PRN PRN Reason: SHORTNESS OF BREATH Amlodipine Besylate (Amlodipine 10 Mg Tab) 10 mg PO DAILY [facility] Last Admin: 09/23/20 09:20 Dose: 10 mg Documented by: Apixaban (Apixaban 2.5 Mg Tablet) 2.5 mg PO BID [facility] Last Admin: 09/23/20 20:40 Dose: 2.5 mg Documented by: Ascorbic Acid (Ascorbic Acid 500 Mg Tablet) 500 mg PO BEDTIME [facility] Last Admin: 09/23/20 20:40 Dose: 500 mg Documented by: Atorvastatin Calcium (Atorvastatin 10 Mg Tab) 10 mg PO BEDTIME [facility] Last Admin: 09/23/20 20:40 Dose: 10 mg Documented by: Budesonide (Budesonide 0.25 Mg/2 Ml Neb) 0.25 mg NEB BIDRESP [facility] Last Admin: 09/23/20 21:25 Dose: 0.25 mg Documented by: Calcitriol (Calcitrol 0.25 Mcg Cap) 0.5 mcg PO DAILY [facility] Last Admin: 09/23/20 09:00 Dose: 0.5 mcg Documented by: Calcium Acetate (Ca Acetate 667 Mg Cap) 1,334 mg PO TIDWM [facility] Last Admin: 09/23/20 16:57 Dose: 1,334 mg Documented by: Cholecalciferol (Vitamin D 5,000 Unit Cap) 5,000 unit PO DAILY [facility] Last Admin: 09/23/20 09:19 Dose: 5,000 unit Documented by: Dextrose (D50w 25 Gm/50 Ml Vial) 12.5 gm IV PRN PRN; Protocol PRN Reason: HYPOGLYCEMIA Docusate Sodium (Docusate Na 100 Mg Cap) 100 mg PO BID [facility] Last Admin: 09/23/20 20:40 Dose: Not Given Documented by: Doxazosin Mesylate (Doxazosin 2 Mg Tab) 2 mg PO BEDTIME [facility] Last Admin: 09/23/20 20:40 Dose: 2 mg Documented by: Furosemide (Furosemide 40 Mg Tablet) 40 mg PO BIDL [facility] Last Admin: 09/23/20 16:57 Dose: 40 mg Documented by: Glimepiride (Glimepiride 2 Mg Tablet) 4 mg PO DAILYAC [facility] Last Admin: 09/23/20 09:34 Dose: 4 mg Documented by: Glucagon (Glucagon 1 Mg/Vial) 1 mg IM 1X PRN; Protocol PRN Reason: HYPOGLYCEMIA Heparin Sodium (Porcine) (Heparin 1,000 Unit/Ml Vial) 3,000 unit IV EVERY HD PRN PRN Reason: dialysis Last Admin: 09/23/20 10:48 Dose: 3,000 unit Documented by: Home Med (Linagliptin [Tradjenta]) 5 mg PO DAILY [facility] Last Admin: 09/23/20 09:00 Dose: Not Given Documented by: Hydralazine HCl (Hydralazine Hcl 20 Mg/Ml Vial) 10 mg IV Q6HP PRN PRN Reason: Titrate to SBP (MUST DEFINE) Last Admin: 09/20/20 05:00 Dose: 10 mg Documented by: Albumin Human (Albumin 25%) 50 mls @ 100 mls/hr IV EVERY HD [facility] Insulin Glargine (Insulin Glargine 100 Units/Ml) 30 units SQ BID [facility] Last Admin: 09/23/20 20:41 Dose: 30 units Documented by: Insulin Human Regular (Insulin -Regular Human 50 Unit/0.5 Ml Ml) 0 unit SQ ACHS [facility]; Protocol Last Admin: 09/23/20 20:42 Dose: 10 unit Documented by: Ipratropium [place] (Ipratropium Brom 0.5mg/2.5ml) 0.5 mg NEB Q6HP PRN PRN Reason: SHORTNESS OF BREATH Last Admin: 09/23/20 14:40 Dose: 0.5 mg Documented by: Mannitol (Mannitol 25% 12.5 Gm/50 Ml Vial) 12.5 gm IV EVERY HD PRN PRN Reason: Titrate to SBP (MUST DEFINE) Melatonin (Melatonin 5 Mg Tablet) 5 mg PO BEDTIME [facility] Last Admin: 09/23/20 20:41 Dose: Not Given Documented by: Methylprednisolone Sodium Succinate (Methylprednisolone 125 Mg Inj) 60 mg IV TID [facility] Last Admin: 09/23/20 20:40 Dose: 60 mg Documented by: Metoprolol Tartrate (Metoprolol Tar 50 Mg Tab) 50 mg PO BID [facility] Last Admin: 09/23/20 20:41 Dose: 50 mg Documented by: Ondansetron HCl (Ondansetron 4 Mg/2 Ml Vial) 4 mg IV Q6HP PRN PRN Reason: NAUSEA / VOMITING Sodium Chloride (Flush Normal Saline 10 Ml) 10 ml IV BID [facility] Last Admin: 09/23/20 20:42 Dose: 10 ml Documented by: Thiamine HCl (Thiamine Hcl 100 Mg Tablet) 100 mg PO BID [facility] Last Admin: 09/23/20 20:42 Dose: 100 mg Documented by: Vitamin B Complex/Vit C/Folic Acid (Multivitamins,Therapeut 1 Tab) 1 tab PO DAILY [facility] Last Admin: 09/23/20 09:20 Dose: 1 tab Documented by: Zinc Sulfate (Zinc Sulfate 220 Mg Cap) 220 mg PO DAILY [facility] Last Admin: 09/23/20 09:20 Dose: 220 mg Documented by: Microbiology Results 09/06/20 00:48 Blood - Blood Aerobic Blood Culture - Final No growth in 5 days. 09/06/20 00:48 Blood - Blood Anaerobic Blood Culture - Final No growth in 5 days. Assessment/ Plan: Nephrology Feeling better and wants to go home. Persistent dyspnea and hypoxia slowly improving. No acute events overnight. Vitals, medications, blood work and imaging reviewed in the chart. General: In no apparent distress, Oriented x3, Cooperative HEENT: Atraumatic Neck: Supple, JVD distended Respiratory: Diminished Cardiovascular: Regular rate/rhythm, Edema Gastrointestinal: Soft and benign, Non-distended Musculoskeletal: No clubbing, No contractures Integumentary: No rashes, No cyanosis Neurological: Normal speech Laboratory Data (last 24 hrs) 09/06/20 09:09: PT 11.5, INR 1.00, APTT 33.8 09/06/20 09:09: Sodium 131 L, Potassium 4.6, BUN 66 H, Creatinine 12.20 H*, Glucose 80, Total Bilirubin 0.5, AST 120 H, ALT 51, Alkaline Phosphatase 128 H 09/06/20 00:48: WBC 5.00, Hgb 10.4 L, Hct 30.7 L, Plt Count 123 L Imagings Data: EXAM DESCRIPTION: Tejal Single View09/06/2020 9:47 am CLINICAL HISTORY: Shortness of breath COMPARISON: 2019 FINDINGS: Moderate bilateral pulmonary opacities. The heart is mildly enlarged IMPRESSION: Moderate bilateral pulmonary opacities could represent pneumonia or pulmonary edema Conclusions/Impression: A/P: Continue the current POC and Medications other than the changes listed. AM Labs PRN. Recommend daily weight. Please see the orders for complete details. ESRD TTS -Acute HD TIW -Seen and examined at the start of HD today. Hyponatremia -HD TIW Hyperkalemia -HD TIW -Give kayexalate X1 dose Acidosis -HD TIW HTN with CKD/ CHF -Continue Amlodipine -Continue Metoprolol -Continue Doxazosin Diastolic CHF -HD TIW -Continue Metoprolol -Continue furosemide DM II with CKD and Polyneuropathy -Continue Lantus Moderate malnutrition -Encourage nutrition -Continue Promod -Give IV Albumin with HD Anemia in CKD -Continue Retacrit DANITA/ Secondary HyperPTH -Continue Vitamin D3 Rhabdomyolysis COVID PNA with hypoxia -Wean Solumedrol as tolerated -Wean Oxygen supplementation as tolerated -Start inh mucomyst Discharge to home once Oxygen requirements improve. Case reviewed with Dr. Morgan
[2020-09-24] MEDS: HYDRALAZINE HCL 20 MG/ML VIAL IV PRN (01:08)
[2020-09-24] MEDS: IPRATROPIUM BROM 0.5MG/2.5ML NEB PRN (01:30)
[2020-09-24] MEDS: ALBUTEROL 2.5 MG/3 ML NEB SOL NEB PRN ×3 (01:30→13:44)
[2020-09-24] MEDS: ACETYLCYST 20% 4 ML VIAL IH SCH ×4 (02:00→20:40)
[2020-09-24] MEDS: GLIMEPIRIDE 2 MG TABLET PO SCH ×2 (06:06→09:18)
[2020-09-24 06:19] LABS: Absolute Lymphocytes (CBC) 0.3 K/uL (0.7-4.9); Basophils % 0.3 % (0-1.3); Hematocrit 27.5 % (39.6-49.0); Lymphocytes % 2.5 % (15.3-44.8); MPV 9.3 fL (7.6-11.3); RBC Red Blood Cell Count 3.25 M/uL (4.33-5.43)
[2020-09-24 06:40] LABS: BUN Blood Urea Nitrogen 59 mg/dL (7-18); Bicarbonate 26 mmol/L (21-32); Ferritin 1045.1 ng/mL (26-388); Glucose Level 153 mg/dL (74-106); Magnesium 2.2 mg/dL (1.8-2.4); Potassium 4.2 mmol/L (3.5-5.1); Sodium Level 142 mmol/L (136-145)
[2020-09-24 06:49] LABS: C-Reactive Protein < 2.90 mg/L (<3.00)
[2020-09-24] MEDS: INSULIN -REGULAR HUMAN 50 UNIT/0.5 ML ML SQ SCH ×4 (07:30→22:57)
[2020-09-24] MEDS: HOME MED 1 EA UNK (Linagliptin [Tradjenta] 5 MG Tablet) PO SCH (09:00)
[2020-09-24] MEDS: DOCUSATE NA 100 MG CAP PO SCH ×2 (09:00→19:47)
[2020-09-24] MEDS: INSULIN GLARGINE 100 UNITS/ML SQ SCH ×2 (09:00→22:58)
[2020-09-24] MEDS: BUDESONIDE 0.25 MG/2 ML NEB NEB SCH ×2 (09:06→20:40)
--- NOTE | 2020-09-24 09:15 | P.PN ---
Subjective Date of Service: 09/24/20 Primary Care Provider: Dr. Davis; Nephrology-Dr. Garibay Chief Complaint: Respiratory failure Subjective: Other (Patient reports improvement. Still some desaturations with ambulation.) Physical Examination - Vital Signs Temperature: 97.3 F Blood Pressure: 163/90 Pulse: 64 Respirations: 18 Pulse Ox (%): 98 - Studies Medications List Reviewed: Yes Assessment & Plan Discharge Plan: Home Plan to discharge in: 48 Hours Physician Review Additional Text: Physical exam: Patient alert, cooperative. Patient has done well. Currently on 5 L per nasal cannula. Still some desaturations with ambulation. Patient sating at bedside. Heart: Regular rate Lungs: Currently on 5 L per nasal cannula. Good air movement bilateral Abdomen: Soft Extremities: Good range of motion. No focal deficits. Impression: Fever, dyspnea secondary to acute respiratory failure with hypoxia related to b ilateral COVID pneumonia ESRD on hemodialysis DM Type 2 with hyperglycemia HTN Anemia of chronic disease Hyperlipidemia Plan: Fever, dyspnea secondary to acute respiratory failure with hypoxia related to bilateral COVID pneumonia: Patient currently on 5 L per nasal cannula. Mucomyst and Pulmicort added yesterday. Some improvement noted. Will continue to ambulate. Encourage incentive spirometer. Will continue to assess. Spoke with pulmonology and nephrology yesterday. Will continue to wean down below 4 L. If able to ambulate well on 4 L will consider discharge. Anticipate improvement over the next 48 hr. ESRD on hemodialysis: Nephrology consulted. Patient to have dialysis today. Will assess oxygenation and ambulation after dialysis. Patient does dialysis every Saturday, and Saturday. DM Type 2 with hyperglycemia: A1c elevated at 8.6. Blood sugars better controlled. Continue Lantus. Sliding scale in place. HTN: Will monitor and adjust appropriately. May need to make adjustments in medication if blood pressure remains elevated. Anemia of chronic disease: Will monitor and adjust appropriately. Hyperlipidemia: Home medication restarted Time Spent Managing Pts Care (In Minutes): 55
[2020-09-24] MEDS: MULTIVITAMINS,THERAPEUT 1 TAB PO SCH (09:18)
[2020-09-24] MEDS: CALCITROL 0.25 MCG CAP PO SCH (09:18)
[2020-09-24] MEDS: THIAMINE HCL 100 MG TABLET PO SCH ×2 (09:18→22:57)
[2020-09-24] MEDS: CALCIUM ACETATE 667 MG TAB PO SCH ×3 (09:18→16:37)
[2020-09-24] MEDS: VITAMIN D 5,000 UNIT CAP PO SCH (09:18)
[2020-09-24] MEDS: METHYLPREDNISOLONE 125 MG INJ IV SCH ×3 (09:19→22:56)
[2020-09-24] MEDS: METOPROLOL TAR 50 MG TAB PO SCH ×2 (09:19→22:56)
[2020-09-24] MEDS: APIXABAN 2.5 MG TABLET PO SCH ×2 (09:19→22:57)
[2020-09-24] MEDS: ZINC SULFATE 220 MG CAP PO SCH (09:19)
[2020-09-24] MEDS: FUROSEMIDE 40 MG TABLET PO SCH ×2 (09:19→16:37)
[2020-09-24] MEDS: AMLODIPINE 10 MG TAB PO SCH (09:19)
[2020-09-24 10:00] LABS: Blood Morphology Comment NOT SEEN (NOT SEEN); Platelet Estimate DECR; Platelets, Giant FEW PRESENT; White Blood Cell Scan OK (OK)
--- NOTE | 2020-09-24 15:10 | PN ---
Date of Progress Note: 09/24/2020 Subjective: The patient was seen and examined at bedside. He is doing well. Denies any complaints. Objective: Vital signs: Have been reviewed and are stable. General: He appears in no acute distress. HEENT: Shows atraumatic head. Lungs: Auscultation of lungs revealed diminished breath sounds overall. Extremities: Showed no herbert dence of edema. Laboratory Data: Showing labs consistent with ESRD. CBC is showing stable hemoglobin, hematocrit, a nd platelet count. Current Medications: Have been reviewed in detail. Impression: 1.End-stage renal disease, on dialysis. 2.COVID-19 pneumonia with high oxygen requirements. 3.Hypertension. 4.Anemia secondary to chronic disease. Plan: Overall, the patient is doing okay at this time. Continue all medications and plan of care. Continue to wean down oxygen requirements. Plan for dialysis again on Saturday. VV/MODL Voice ID: [id number] Report ID: [id number]
[2020-09-24] MEDS: MELATONIN 5 MG TABLET PO SCH (19:47)
[2020-09-24] MEDS: ASCORBIC ACID 500 MG TABLET PO SCH (22:56)
[2020-09-24] MEDS: DOXAZOSIN 2 MG TAB PO SCH (22:56)
[2020-09-24] MEDS: ATORVASTATIN 10 MG TAB PO SCH (22:57)
[2020-09-25] MEDS: ACETYLCYST 20% 4 ML VIAL IH SCH ×3 (02:00→14:00)
[2020-09-25 04:34] LABS: Absolute Lymphocytes (CBC) 0.2 K/uL (0.7-4.9); Basophils % 0.1 % (0-1.3); Hematocrit 26.3 % (39.6-49.0); Lymphocytes % 1.8 % (15.3-44.8); MPV 8.8 fL (7.6-11.3); RBC Red Blood Cell Count 3.09 M/uL (4.33-5.43)
[2020-09-25 04:52] LABS: BUN Blood Urea Nitrogen 41 mg/dL (7-18); Bicarbonate 28 mmol/L (21-32); Ferritin 1073.3 ng/mL (26-388); Glucose Level 194 mg/dL (74-106); Magnesium 2.2 mg/dL (1.8-2.4); Potassium 4.3 mmol/L (3.5-5.1); Sodium Level 141 mmol/L (136-145)
[2020-09-25 04:54] LABS: C-Reactive Protein < 2.90 mg/L (<3.00)
[2020-09-25] MEDS: HYDRALAZINE HCL 20 MG/ML VIAL IV PRN (05:13)
[2020-09-25] MEDS: METOPROLOL TAR 50 MG TAB PO SCH ×2 (07:28→21:34)
[2020-09-25] MEDS: MULTIVITAMINS,THERAPEUT 1 TAB PO SCH (07:28)
[2020-09-25] MEDS: FUROSEMIDE 40 MG TABLET PO SCH ×2 (07:29→16:01)
[2020-09-25] MEDS: DOCUSATE NA 100 MG CAP PO SCH ×2 (07:29→21:00)
[2020-09-25] MEDS: CALCITROL 0.25 MCG CAP PO SCH (07:29)
[2020-09-25] MEDS: THIAMINE HCL 100 MG TABLET PO SCH ×2 (07:29→21:29)
[2020-09-25] MEDS: CALCIUM ACETATE 667 MG TAB PO SCH ×3 (07:29→16:00)
[2020-09-25] MEDS: ZINC SULFATE 220 MG CAP PO SCH (07:30)
[2020-09-25] MEDS: VITAMIN D 5,000 UNIT CAP PO SCH (07:30)
[2020-09-25] MEDS: APIXABAN 2.5 MG TABLET PO SCH ×2 (07:30→21:34)
[2020-09-25] MEDS: GLIMEPIRIDE 2 MG TABLET PO SCH (07:30)
[2020-09-25] MEDS: AMLODIPINE 10 MG TAB PO SCH (07:30)
[2020-09-25] MEDS: INSULIN GLARGINE 100 UNITS/ML SQ SCH ×2 (07:31→21:28)
[2020-09-25] MEDS: METHYLPREDNISOLONE 125 MG INJ IV SCH ×3 (07:31→21:29)
[2020-09-25] MEDS: HOME MED 1 EA UNK (Linagliptin [Tradjenta] 5 MG Tablet) PO SCH (07:31)
[2020-09-25] MEDS: INSULIN -REGULAR HUMAN 50 UNIT/0.5 ML ML SQ SCH ×4 (07:32→21:28)
[2020-09-25] MEDS: ALBUTEROL 2.5 MG/3 ML NEB SOL NEB PRN (08:35)
[2020-09-25] MEDS: BUDESONIDE 0.25 MG/2 ML NEB NEB SCH ×2 (08:35→19:35)
[2020-09-25] MEDS: IPRATROPIUM BROM 0.5MG/2.5ML NEB PRN (08:35)
--- NOTE | 2020-09-25 09:11 | P.PN ---
Subjective Date of Service: 09/25/20 Primary Care Provider: Dr. Davis; Nephrology-Dr. Garibay Chief Complaint: Respiratory failure Subjective: Improving, Doing well Physical Examination - Vital Signs Temperature: 97.5 F Blood Pressure: 140/70 Pulse: 71 Respirations: 19 Pulse Ox (%): 95 - Studies Medications List Reviewed: Yes Assessment & Plan Discharge Plan: Home Plan to discharge in: 48 Hours Physician Review Additional Text: Physical exam: Patient alert, cooperative. Patient has done well. Currently on 6 L per nasal cannula. Still some desaturations with ambulation. Patient sating at bedside. Heart: Regular rate Lungs: Currently on 6 L per nasal cannula. Good air movement bilateral Abdomen: Soft Extremities: Good range of motion. No focal deficits. Impression: Fever, dyspnea secondary to acute respiratory failure with hypoxia related to bilateral COVID pneumonia ESRD on hemodialysis DM Type 2 with hyperglycemia HTN Anemia of chronic disease Hyperlipidemia Thrombocytopenia likely related to COVID Plan: Fever, dyspnea secondary to acute respiratory failure with hypoxia related to bilateral COVID pneumonia: Patient continues to improve. Currently on 6 L. Still with desaturations upon ambulation. Patient appears improved with additional medication including Mucomyst and Pulmicort. Continue to ambulate. Continue to encourage incentive spirometer. Encourage proning. Continue current plan of care. Once the patient is able to ambulate and move around appropriately with less than 4 L per nasal cannula then will consider discharge. Anticipate improvement over the next 48 hr. I will turn the service over to the hospitalist team tomorrow. I will go the plan of care with him. ESRD on hemodialysis: Continue with nephrology recommendation. Continue with dialysis every Saturday, and Saturday. DM Type 2 with hyperglycemia: A1c elevated at 8.6. Blood sugars better controlled. Continue Lantus. Sliding scale in place. HTN: Blood pressure controlled. Continue with current medications. Anemia of chronic disease: Will monitor and adjust appropriately. Hyperlipidemia: Home medication restarted Thrombocytopenia likely related to COVID: Improvement noted. Will monitor closely. Time Spent Managing Pts Care (In Minutes): 55
[2020-09-25] MEDS: MELATONIN 5 MG TABLET PO SCH (21:00)
[2020-09-25] MEDS: DOXAZOSIN 2 MG TAB PO SCH (21:29)
[2020-09-25] MEDS: ATORVASTATIN 10 MG TAB PO SCH (21:30)
[2020-09-25] MEDS: ASCORBIC ACID 500 MG TABLET PO SCH (21:30)
[2020-09-26 03:55] LABS: Absolute Lymphocytes (CBC) 0.2 K/uL (0.7-4.9); Basophils % 0.3 % (0-1.3); Lymphocytes % 2.2 % (15.3-44.8); MPV 8.8 fL (7.6-11.3); RBC Red Blood Cell Count 3.08 M/uL (4.33-5.43)
[2020-09-26] MEDS: HYDRALAZINE HCL 20 MG/ML VIAL IV PRN (04:01)
[2020-09-26 04:35] LABS: BUN Blood Urea Nitrogen 69 mg/dL (7-18); Bicarbonate 25 mmol/L (21-32); Ferritin 1042.4 ng/mL (26-388); Glucose Level 145 mg/dL (74-106); Magnesium 2.4 mg/dL (1.8-2.4); Potassium 4.5 mmol/L (3.5-5.1); Sodium Level 141 mmol/L (136-145)
[2020-09-26 04:37] LABS: C-Reactive Protein < 2.90 mg/L (<3.00)
[2020-09-26] MEDS: INSULIN -REGULAR HUMAN 50 UNIT/0.5 ML ML SQ SCH ×4 (07:30→20:03)
[2020-09-26] MEDS: BUDESONIDE 0.25 MG/2 ML NEB NEB SCH ×2 (07:39→19:50)
[2020-09-26] MEDS: CALCIUM ACETATE 667 MG TAB PO SCH ×3 (07:55→16:40)
[2020-09-26] MEDS: CALCITROL 0.25 MCG CAP PO SCH (07:55)
[2020-09-26] MEDS: METOPROLOL TAR 50 MG TAB PO SCH ×2 (07:55→20:02)
[2020-09-26] MEDS: AMLODIPINE 10 MG TAB PO SCH (07:55)
[2020-09-26] MEDS: THIAMINE HCL 100 MG TABLET PO SCH ×2 (07:55→20:01)
[2020-09-26] MEDS: ZINC SULFATE 220 MG CAP PO SCH (07:55)
[2020-09-26] MEDS: APIXABAN 2.5 MG TABLET PO SCH ×2 (07:55→20:01)
[2020-09-26] MEDS: VITAMIN D 5,000 UNIT CAP PO SCH (07:56)
[2020-09-26] MEDS: MULTIVITAMINS,THERAPEUT 1 TAB PO SCH (07:56)
[2020-09-26] MEDS: FUROSEMIDE 40 MG TABLET PO SCH ×2 (07:56→16:40)
[2020-09-26] MEDS: METHYLPREDNISOLONE 125 MG INJ IV SCH ×3 (07:56→20:02)
[2020-09-26] MEDS: DOCUSATE NA 100 MG CAP PO SCH ×3 (07:57→21:00)
[2020-09-26] MEDS: HOME MED 1 EA UNK (Linagliptin [Tradjenta] 5 MG Tablet) PO SCH (07:57)
[2020-09-26] MEDS: GLIMEPIRIDE 2 MG TABLET PO SCH (08:00)
[2020-09-26] MEDS: INSULIN GLARGINE 100 UNITS/ML SQ SCH ×2 (09:07→20:02)
[2020-09-26] MEDS: EPOETIN ALFA-EPBX 4,000 UNIT/ML VIAL SQ SCH (10:00)
--- NOTE | 2020-09-26 19:43 | P.PN ---
Date of Service: 09/26/20 Vital Signs Temp Pulse Resp BP Pulse Ox 97.1 F 69 18 153/78 H 87 L 09/26/20 16:00 09/26/20 16:40 09/26/20 16:00 09/26/20 16:40 09/26/20 16:00 Medications Acetaminophen (Acetaminophen 500 Mg Tab) 500 mg PO Q4HP PRN PRN Reason: TEMP > 101' F Albuterol Sulfate (Albuterol 2.5 Mg/3 Ml Neb Samanta) 2.5 mg NEB Q6HP PRN PRN Reason: SHORTNESS OF BREATH Last Admin: 09/25/20 08:35 Dose: 2.5 mg Documented by: Amlodipine Besylate (Amlodipine 10 Mg Tab) 10 mg PO DAILY [facility] Last Admin: 09/26/20 07:55 Dose: 10 mg Documented by: Apixaban (Apixaban 2.5 Mg Tablet) 2.5 mg PO BID [facility] Last Admin: 09/26/20 07:55 Dose: 2.5 mg Documented by: Ascorbic Acid (Ascorbic Acid 500 Mg Tablet) 500 mg PO BEDTIME [facility] Last Admin: 09/25/20 21:30 Dose: 500 mg Documented by: Atorvastatin Calcium (Atorvastatin 10 Mg Tab) 10 mg PO BEDTIME [facility] Last Admin: 09/25/20 21:30 Dose: 10 mg Documented by: Budesonide (Budesonide 0.25 Mg/2 Ml Neb) 0.25 mg NEB BIDRESP [facility] Last Admin: 09/26/20 07:39 Dose: 0.25 mg Documented by: Calcitriol (Calcitrol 0.25 Mcg Cap) 0.5 mcg PO DAILY [facility] Last Admin: 09/26/20 07:55 Dose: 0.5 mcg Documented by: Calcium Acetate (Ca Acetate 667 Mg Cap) 1,334 mg PO TIDWM [facility] Last Admin: 09/26/20 16:40 Dose: 1,334 mg Documented by: Cholecalciferol (Vitamin D 5,000 Unit Cap) 5,000 unit PO DAILY [facility] Last Admin: 09/26/20 07:56 Dose: 5,000 unit Documented by: Dextrose (D50w 25 Gm/50 Ml Vial) 12.5 gm IV PRN PRN; Protocol PRN Reason: HYPOGLYCEMIA Docusate Sodium (Docusate Na 100 Mg Cap) 100 mg PO BID [facility] Last Admin: 09/26/20 07:57 Dose: Not Given Documented by: Doxazosin Mesylate (Doxazosin 2 Mg Tab) 2 mg PO BEDTIME [facility] Last Admin: 09/25/20 21:29 Dose: 2 mg Documented by: Furosemide (Furosemide 40 Mg Tablet) 40 mg PO BIDL [facility] Last Admin: 09/26/20 16:40 Dose: 40 mg Documented by: Glimepiride (Glimepiride 2 Mg Tablet) 4 mg PO DAILYAC [facility] Last Admin: 09/26/20 08:00 Dose: 4 mg Documented by: Glucagon (Glucagon 1 Mg/Vial) 1 mg IM 1X PRN; Protocol PRN Reason: HYPOGLYCEMIA Heparin Sodium (Porcine) (Heparin 1,000 Unit/Ml Vial) 3,000 unit IV EVERY HD PRN PRN Reason: dialysis Last Admin: 09/23/20 10:48 Dose: 3,000 unit Documented by: Home Med (Linagliptin [Tradjenta]) 5 mg PO DAILY [facility] Last Admin: 09/26/20 07:57 Dose: Not Given Documented by: Hydralazine HCl (Hydralazine Hcl 20 Mg/Ml Vial) 10 mg IV Q6HP PRN PRN Reason: Titrate to SBP (MUST DEFINE) Last Admin: 09/26/20 04:01 Dose: 10 mg Documented by: Albumin Human (Albumin 25%) 50 mls @ 100 mls/hr IV EVERY HD [facility] Insulin Glargine (Insulin Glargine 100 Units/Ml) 30 units SQ BID [facility] Last Admin: 09/26/20 09:07 Dose: 30 units Documented by: Insulin Human Regular (Insulin -Regular Human 50 Unit/0.5 Ml Ml) 0 unit SQ ACHS [facility]; Protocol Last Admin: 09/26/20 16:39 Dose: 4 unit Documented by: Ipratropium [place] (Ipratropium Brom 0.5mg/2.5ml) 0.5 mg NEB Q6HP PRN PRN Reason: SHORTNESS OF BREATH Last Admin: 09/25/20 08:35 Dose: 0.5 mg Documented by: Mannitol (Mannitol 25% 12.5 Gm/50 Ml Vial) 12.5 gm IV EVERY HD PRN PRN Reason: Titrate to SBP (MUST DEFINE) Melatonin (Melatonin 5 Mg Tablet) 5 mg PO BEDTIME [facility] Last Admin: 09/25/20 21:00 Dose: Not Given Documented by: Methylprednisolone Sodium Succinate (Methylprednisolone 125 Mg Inj) 60 mg IV TID [facility] Last Admin: 09/26/20 13:15 Dose: 60 mg Documented by: Metoprolol Tartrate (Metoprolol Tar 50 Mg Tab) 50 mg PO BID [facility] Last Admin: 09/26/20 07:55 Dose: 50 mg Documented by: Ondansetron HCl (Ondansetron 4 Mg/2 Ml Vial) 4 mg IV Q6HP PRN PRN Reason: NAUSEA / VOMITING Sodium Chloride (Flush Normal Saline 10 Ml) 10 ml IV BID [facility] Last Admin: 09/26/20 07:57 Dose: 10 ml Documented by: Thiamine HCl (Thiamine Hcl 100 Mg Tablet) 100 mg PO BID [facility] Last Admin: 09/26/20 07:55 Dose: 100 mg Documented by: Vitamin B Complex/Vit C/Folic Acid (Multivitamins,Therapeut 1 Tab) 1 tab PO DAILY [facility] Last Admin: 09/26/20 07:56 Dose: 1 tab Documented by: Zinc Sulfate (Zinc Sulfate 220 Mg Cap) 220 mg PO DAILY [facility] Last Admin: 09/26/20 07:55 Dose: 220 mg Documented by: Microbiology Results 09/06/20 00:48 Blood - Blood Aerobic Blood Culture - Final No growth in 5 days. 09/06/20 00:48 Blood - Blood Anaerobic Blood Culture - Final No growth in 5 days. Assessment/ Plan: Nephrology Feeling better Persistent dyspnea and hypoxia slowly improving. No acute events overnight. Vitals, medications, blood work and imaging reviewed in the chart. General: In no apparent distress, Oriented x3, Cooperative HEENT: Atraumatic Neck: Supple, JVD distended Respiratory: Diminished Cardiovascular: Regular rate/rhythm, Edema Gastrointestinal: Soft and benign, Non-distended Musculoskeletal: No clubbing, No contractures Integumentary: No rashes, No cyanosis Neurological: Normal speech Laboratory Data (last 24 hrs) 09/06/20 09:09: PT 11.5, INR 1.00, APTT 33.8 09/06/20 09:09: Sodium 131 L, Potassium 4.6, BUN 66 H, Creatinine 12.20 H*, Glucose 80, Total Bilirubin 0.5, AST 120 H, ALT 51, Alkaline Phosphatase 128 H 09/06/20 00:48: WBC 5.00, Hgb 10.4 L, Hct 30.7 L, Plt Count 123 L Imagings Data: EXAM DESCRIPTION: Tejal Single View09/06/2020 9:47 am CLINICAL HISTORY: Shortness of breath COMPARISON: 2019 FINDINGS: Moderate bilateral pulmonary opacities. The heart is mildly enlarged IMPRESSION: Moderate bilateral pulmonary opacities could represent pneumonia or pulmonary edema Conclusions/Impression: A/P: Continue the current POC and Medications other than the changes listed. AM Labs PRN. Recommend daily weight. Please see the orders for complete details. ESRD TTS -Acute HD TIW Hyponatremia Hyperkalemia Acidosis -HD TIW HTN with CKD/ CHF -Continue Amlodipine -Continue Metoprolol -Continue Doxazosin Diastolic CHF -HD TIW -Continue Metoprolol -Continue furosemide DM II with CKD and Polyneuropathy -Continue Lantus Moderate malnutrition -Encourage nutrition -Continue Promod -Give IV Albumin with HD Anemia in CKD -Continue Retacrit DANITA/ Secondary HyperPTH -Continue Vitamin D3 Rhabdomyolysis COVID PNA with hypoxia -Wean Solumedrol as tolerated -Wean Oxygen supplementation as tolerated -Continue inh budesonide Discharge to home once Oxygen requirements improve.
[2020-09-26] MEDS: ALBUTEROL 2.5 MG/3 ML NEB SOL NEB PRN (19:50)
[2020-09-26] MEDS: ASCORBIC ACID 500 MG TABLET PO SCH (20:01)
[2020-09-26] MEDS: MELATONIN 5 MG TABLET PO SCH ×2 (20:01→21:00)
[2020-09-26] MEDS: ATORVASTATIN 10 MG TAB PO SCH (20:01)
[2020-09-26] MEDS: DOXAZOSIN 2 MG TAB PO SCH (20:03)
[2020-09-27] MEDS: BUDESONIDE 0.25 MG/2 ML NEB NEB SCH ×2 (07:16→20:30)
[2020-09-27] MEDS: INSULIN -REGULAR HUMAN 50 UNIT/0.5 ML ML SQ SCH ×4 (07:30→20:37)
[2020-09-27] MEDS: CALCIUM ACETATE 667 MG TAB PO SCH ×3 (08:29→16:42)
[2020-09-27] MEDS: MULTIVITAMINS,THERAPEUT 1 TAB PO SCH (08:30)
[2020-09-27] MEDS: THIAMINE HCL 100 MG TABLET PO SCH ×2 (08:31→20:38)
[2020-09-27] MEDS: METHYLPREDNISOLONE 125 MG INJ IV SCH ×3 (08:31→20:38)
[2020-09-27] MEDS: VITAMIN D 5,000 UNIT CAP PO SCH (08:31)
[2020-09-27] MEDS: CALCITROL 0.25 MCG CAP PO SCH (08:31)
[2020-09-27] MEDS: FUROSEMIDE 40 MG TABLET PO SCH ×2 (08:32→17:10)
[2020-09-27] MEDS: APIXABAN 2.5 MG TABLET PO SCH ×2 (08:32→20:36)
[2020-09-27] MEDS: ZINC SULFATE 220 MG CAP PO SCH (08:32)
[2020-09-27] MEDS: GLIMEPIRIDE 2 MG TABLET PO SCH (08:32)
[2020-09-27] MEDS: INSULIN GLARGINE 100 UNITS/ML SQ SCH ×2 (08:34→20:36)
[2020-09-27] MEDS: METOPROLOL TAR 50 MG TAB PO SCH ×3 (08:45→20:37)
[2020-09-27] MEDS: HOME MED 1 EA UNK (Linagliptin [Tradjenta] 5 MG Tablet) PO SCH (08:46)
[2020-09-27] MEDS: AMLODIPINE 10 MG TAB PO SCH ×2 (08:46→12:29)
[2020-09-27] MEDS: DOCUSATE NA 100 MG CAP PO SCH ×2 (08:46→20:36)
[2020-09-27] MEDS: HYDRALAZINE HCL 20 MG/ML VIAL IV PRN (16:43)
[2020-09-27] MEDS: IPRATROPIUM BROM 0.5MG/2.5ML NEB PRN (20:30)
[2020-09-27] MEDS: DOXAZOSIN 2 MG TAB PO SCH (20:36)
[2020-09-27] MEDS: ATORVASTATIN 10 MG TAB PO SCH (20:36)
[2020-09-27] MEDS: MELATONIN 5 MG TABLET PO SCH (20:37)
[2020-09-27] MEDS: ASCORBIC ACID 500 MG TABLET PO SCH (20:38)
--- NOTE | 2020-09-27 20:43 | P.PN ---
Date of Service: 09/27/20 Vital Signs Temp Pulse Resp BP Pulse Ox 98 F 69 18 159/81 H 94 09/27/20 16:00 09/27/20 20:37 09/27/20 16:00 09/27/20 20:37 09/27/20 16:00 Medications Acetaminophen (Acetaminophen 500 Mg Tab) 500 mg PO Q4HP PRN PRN Reason: TEMP > 101' F Albuterol Sulfate (Albuterol 2.5 Mg/3 Ml Neb Samanta) 2.5 mg NEB Q6HP PRN PRN Reason: SHORTNESS OF BREATH Last Admin: 09/26/20 19:50 Dose: 2.5 mg Documented by: Amlodipine Besylate (Amlodipine 10 Mg Tab) 10 mg PO DAILY [facility] Last Admin: 09/27/20 12:29 Dose: 10 mg Documented by: Apixaban (Apixaban 2.5 Mg Tablet) 2.5 mg PO BID [facility] Last Admin: 09/27/20 20:36 Dose: 2.5 mg Documented by: Ascorbic Acid (Ascorbic Acid 500 Mg Tablet) 500 mg PO BEDTIME [facility] Last Admin: 09/27/20 20:38 Dose: 500 mg Documented by: Atorvastatin Calcium (Atorvastatin 10 Mg Tab) 10 mg PO BEDTIME [facility] Last Admin: 09/27/20 20:36 Dose: 10 mg Documented by: Budesonide (Budesonide 0.25 Mg/2 Ml Neb) 0.25 mg NEB BIDRESP [facility] Last Admin: 09/27/20 07:16 Dose: 0.25 mg Documented by: Calcitriol (Calcitrol 0.25 Mcg Cap) 0.5 mcg PO DAILY [facility] Last Admin: 09/27/20 08:31 Dose: 0.5 mcg Documented by: Calcium Acetate (Ca Acetate 667 Mg Cap) 1,334 mg PO TIDWM [facility] Last Admin: 09/27/20 16:42 Dose: 1,334 mg Documented by: Cholecalciferol (Vitamin D 5,000 Unit Cap) 5,000 unit PO DAILY [facility] Last Admin: 09/27/20 08:31 Dose: 5,000 unit Documented by: Dextrose (D50w 25 Gm/50 Ml Vial) 12.5 gm IV PRN PRN; Protocol PRN Reason: HYPOGLYCEMIA Docusate Sodium (Docusate Na 100 Mg Cap) 100 mg PO BID [facility] Last Admin: 09/27/20 20:36 Dose: Not Given Documented by: Doxazosin Mesylate (Doxazosin 2 Mg Tab) 2 mg PO BEDTIME [facility] Last Admin: 09/27/20 20:36 Dose: 2 mg Documented by: Furosemide (Furosemide 40 Mg Tablet) 40 mg PO BIDL [facility] Last Admin: 09/27/20 17:10 Dose: 40 mg Documented by: Glimepiride (Glimepiride 2 Mg Tablet) 4 mg PO ACB [facility] Last Admin: 09/27/20 08:32 Dose: 4 mg Documented by: Glucagon (Glucagon 1 Mg/Vial) 1 mg IM 1X PRN; Protocol PRN Reason: HYPOGLYCEMIA Heparin Sodium (Porcine) (Heparin 1,000 Unit/Ml Vial) 3,000 unit IV EVERY HD PRN PRN Reason: dialysis Last Admin: 09/23/20 10:48 Dose: 3,000 unit Documented by: Home Med (Linagliptin [Tradjenta]) 5 mg PO DAILY [facility] Last Admin: 09/27/20 08:46 Dose: Not Given Documented by: Hydralazine HCl (Hydralazine Hcl 20 Mg/Ml Vial) 10 mg IV Q6HP PRN PRN Reason: Titrate to SBP (MUST DEFINE) Last Admin: 09/27/20 16:43 Dose: 10 mg Documented by: Albumin Human (Albumin 25%) 50 mls @ 100 mls/hr IV EVERY HD [facility] Insulin Glargine (Insulin Glargine 100 Units/Ml) 30 units SQ BID [facility] Last Admin: 09/27/20 20:36 Dose: 30 units Documented by: Insulin Human Regular (Insulin -Regular Human 50 Unit/0.5 Ml Ml) 0 unit SQ ACHS [facility]; Protocol Last Admin: 09/27/20 20:37 Dose: 10 unit Documented by: Ipratropium [place] (Ipratropium Brom 0.5mg/2.5ml) 0.5 mg NEB Q6HP PRN PRN Reason: SHORTNESS OF BREATH Last Admin: 09/25/20 08:35 Dose: 0.5 mg Documented by: Mannitol (Mannitol 25% 12.5 Gm/50 Ml Vial) 12.5 gm IV EVERY HD PRN PRN Reason: Titrate to SBP (MUST DEFINE) Melatonin (Melatonin 5 Mg Tablet) 5 mg PO BEDTIME [facility] Last Admin: 09/27/20 20:37 Dose: Not Given Documented by: Methylprednisolone Sodium Succinate (Methylprednisolone 125 Mg Inj) 60 mg IV TID [facility] Last Admin: 09/27/20 20:38 Dose: 60 mg Documented by: Metoprolol Tartrate (Metoprolol Tar 50 Mg Tab) 50 mg PO BID [facility] Last Admin: 09/27/20 20:37 Dose: 50 mg Documented by: Ondansetron HCl (Ondansetron 4 Mg/2 Ml Vial) 4 mg IV Q6HP PRN PRN Reason: NAUSEA / VOMITING Sodium Chloride (Flush Normal Saline 10 Ml) 10 ml IV BID [facility] Last Admin: 09/27/20 20:37 Dose: 10 ml Documented by: Thiamine HCl (Thiamine Hcl 100 Mg Tablet) 100 mg PO BID [facility] Last Admin: 09/27/20 20:38 Dose: 100 mg Documented by: Vitamin B Complex/Vit C/Folic Acid (Multivitamins,Therapeut 1 Tab) 1 tab PO DAILY [facility] Last Admin: 09/27/20 08:30 Dose: 1 tab Documented by: Zinc Sulfate (Zinc Sulfate 220 Mg Cap) 220 mg PO DAILY [facility] Last Admin: 09/27/20 08:32 Dose: 220 mg Documented by: Microbiology Results 09/06/20 00:48 Blood - Blood Aerobic Blood Culture - Final No growth in 5 days. 09/06/20 00:48 Blood - Blood Anaerobic Blood Culture - Final No growth in 5 days. Assessment/ Plan: Nephrology Feeling better Persistent dyspnea and hypoxia slowly improving. No acute events overnight. Vitals, medications, blood work and imaging reviewed in the chart. General: In no apparent distress, Oriented x3, Cooperative HEENT: Atraumatic Neck: Supple Respiratory: Diminished Cardiovascular: Regular rate/rhythm, Edema Gastrointestinal: Soft and benign, Non-distended Musculoskeletal: No clubbing, No contractures Integumentary: No rashes, No cyanosis Neurological: Normal speech Laboratory Data (last 24 hrs) 09/06/20 09:09: PT 11.5, INR 1.00, APTT 33.8 09/06/20 09:09: Sodium 131 L, Potassium 4.6, BUN 66 H, Creatinine 12.20 H*, Glucose 80, Total Bilirubin 0.5, AST 120 H, ALT 51, Alkaline Phosphatase 128 H 09/06/20 00:48: WBC 5.00, Hgb 10.4 L, Hct 30.7 L, Plt Count 123 L Imagings Data: EXAM DESCRIPTION: Tejal Single View09/06/2020 9:47 am CLINICAL HISTORY: Shortness of breath COMPARISON: 2019 FINDINGS: Moderate bilateral pulmonary opacities. The heart is mildly enlarged IMPRESSION: Moderate bilateral pulmonary opacities could represent pneumonia or pulmonary edema Conclusions/Impression: A/P: Continue the current POC and Medications other than the changes listed. AM Labs PRN. Recommend daily weight. Please see the orders for complete detai ls. ESRD TTS -Acute HD TIW -Seen and examined on HD today Hyponatremia Hyperkalemia Acidosis -HD TIW HTN with CKD/ CHF -Continue Amlodipine -Continue Metoprolol -Continue Doxazosin Diastolic CHF -HD TIW -Continue Metoprolol -Continue furosemide DM II with CKD and Polyneuropathy -Continue Lantus Moderate malnutrition -Encourage nutrition -Continue Promod -Give IV Albumin with HD Anemia in CKD -Continue Retacrit DANITA/ Secondary HyperPTH -Continue Vitamin D3 Rhabdomyolysis COVID PNA with hypoxia -Wean Solumedrol as tolerated -Wean Oxygen supplementation as tolerated -Continue inh budesonide Discharge to home once Oxygen requirements improve.
[2020-09-28] MEDS: HYDRALAZINE HCL 20 MG/ML VIAL IV PRN (05:19)
[2020-09-28] MEDS: INSULIN -REGULAR HUMAN 50 UNIT/0.5 ML ML SQ SCH ×4 (07:30→21:09)
[2020-09-28] MEDS: BUDESONIDE 0.25 MG/2 ML NEB NEB SCH ×2 (08:00→19:50)
[2020-09-28] MEDS: INSULIN GLARGINE 100 UNITS/ML SQ SCH ×2 (08:37→21:09)
[2020-09-28] MEDS: CALCITROL 0.25 MCG CAP PO SCH (08:37)
[2020-09-28] MEDS: CALCIUM ACETATE 667 MG TAB PO SCH ×3 (08:37→17:04)
[2020-09-28] MEDS: MULTIVITAMINS,THERAPEUT 1 TAB PO SCH (08:37)
[2020-09-28] MEDS: GLIMEPIRIDE 2 MG TABLET PO SCH (08:38)
[2020-09-28] MEDS: METOPROLOL TAR 50 MG TAB PO SCH ×2 (08:38→21:09)
[2020-09-28] MEDS: APIXABAN 2.5 MG TABLET PO SCH ×2 (08:38→21:09)
[2020-09-28] MEDS: ZINC SULFATE 220 MG CAP PO SCH (08:38)
[2020-09-28] MEDS: AMLODIPINE 10 MG TAB PO SCH (08:38)
[2020-09-28] MEDS: THIAMINE HCL 100 MG TABLET PO SCH ×2 (08:38→21:09)
[2020-09-28] MEDS: VITAMIN D 5,000 UNIT CAP PO SCH (08:38)
[2020-09-28] MEDS: FUROSEMIDE 40 MG TABLET PO SCH ×2 (08:38→17:04)
[2020-09-28] MEDS: METHYLPREDNISOLONE 125 MG INJ IV SCH ×3 (08:39→21:07)
[2020-09-28] MEDS: DOCUSATE NA 100 MG CAP PO SCH ×2 (08:40→21:09)
[2020-09-28] MEDS: HOME MED 1 EA UNK (Linagliptin [Tradjenta] 5 MG Tablet) PO SCH (08:40)
[2020-09-28] MEDS: EPOETIN ALFA-EPBX 4,000 UNIT/ML VIAL SQ SCH (09:00)
[2020-09-28] MEDS: ALBUTEROL 2.5 MG/3 ML NEB SOL NEB PRN (19:50)
[2020-09-28] MEDS: MELATONIN 5 MG TABLET PO SCH (21:00)
[2020-09-28] MEDS: DOXAZOSIN 2 MG TAB PO SCH (21:00)
--- NOTE | 2020-09-28 21:01 | P.PN ---
Date of Service: 09/28/20 Vital Signs Temp Pulse Resp BP Pulse Ox 97.2 F 61 16 123/75 91 09/28/20 20:00 09/28/20 20:00 09/28/20 20:00 09/28/20 20:00 09/28/20 20:00 Medications Acetaminophen (Acetaminophen 500 Mg Tab) 500 mg PO Q4HP PRN PRN Reason: TEMP > 101' F Albuterol Sulfate (Albuterol 2.5 Mg/3 Ml Neb Samanta) 2.5 mg NEB Q6HP PRN PRN Reason: SHORTNESS OF BREATH Last Admin: 09/28/20 19:50 Dose: 2.5 mg Documented by: Amlodipine Besylate (Amlodipine 10 Mg Tab) 10 mg PO DAILY [facility] Last Admin: 09/28/20 08:38 Dose: 10 mg Documented by: Apixaban (Apixaban 2.5 Mg Tablet) 2.5 mg PO BID [facility] Last Admin: 09/28/20 08:38 Dose: 2.5 mg Documented by: Ascorbic Acid (Ascorbic Acid 500 Mg Tablet) 500 mg PO BEDTIME [facility] Last Admin: 09/27/20 20:38 Dose: 500 mg Documented by: Atorvastatin Calcium (Atorvastatin 10 Mg Tab) 10 mg PO BEDTIME [facility] Last Admin: 09/27/20 20:36 Dose: 10 mg Documented by: Budesonide (Budesonide 0.25 Mg/2 Ml Neb) 0.25 mg NEB BIDRESP [facility] Last Admin: 09/28/20 19:50 Dose: 0.25 mg Documented by: Calcitriol (Calcitrol 0.25 Mcg Cap) 0.5 mcg PO DAILY [facility] Last Admin: 09/28/20 08:37 Dose: 0.5 mcg Documented by: Calcium Acetate (Ca Acetate 667 Mg Cap) 1,334 mg PO TIDWM [facility] Last Admin: 09/28/20 17:04 Dose: 1,334 mg Documented by: Cholecalciferol (Vitamin D 5,000 Unit Cap) 5,000 unit PO DAILY [facility] Last Admin: 09/28/20 08:38 Dose: 5,000 unit Documented by: Dextrose (D50w 25 Gm/50 Ml Vial) 12.5 gm IV PRN PRN; Protocol PRN Reason: HYPOGLYCEMIA Docusate Sodium (Docusate Na 100 Mg Cap) 100 mg PO BID [facility] Last Admin: 09/28/20 08:40 Dose: Not Given Documented by: Doxazosin Mesylate (Doxazosin 2 Mg Tab) 2 mg PO BEDTIME [facility] Last Admin: 09/27/20 20:36 Dose: 2 mg Documented by: Furosemide (Furosemide 40 Mg Tablet) 40 mg PO BIDL [facility] Last Admin: 09/28/20 17:04 Dose: 40 mg Documented by: Glimepiride (Glimepiride 2 Mg Tablet) 4 mg PO ACB [facility] Last Admin: 09/28/20 08:38 Dose: 4 mg Documented by: Glucagon (Glucagon 1 Mg/Vial) 1 mg IM 1X PRN; Protocol PRN Reason: HYPOGLYCEMIA Heparin Sodium (Porcine) (Heparin 1,000 Unit/Ml Vial) 3,000 unit IV EVERY HD PRN PRN Reason: dialysis Last Admin: 09/23/20 10:48 Dose: 3,000 unit Documented by: Home Med (Linagliptin [Tradjenta]) 5 mg PO DAILY [facility] Last Admin: 09/28/20 08:40 Dose: Not Given Documented by: Hydralazine HCl (Hydralazine Hcl 20 Mg/Ml Vial) 10 mg IV Q6HP PRN PRN Reason: Titrate to SBP (MUST DEFINE) Last Admin: 09/28/20 05:19 Dose: 10 mg Documented by: Albumin Human (Albumin 25%) 50 mls @ 100 mls/hr IV EVERY HD [facility] Insulin Glargine (Insulin Glargine 100 Units/Ml) 30 units SQ BID [facility] Last Admin: 09/28/20 08:37 Dose: 30 units Documented by: Insulin Human Regular (Insulin -Regular Human 50 Unit/0.5 Ml Ml) 0 unit SQ ACHS [facility]; Protocol Last Admin: 09/28/20 16:30 Dose: 8 unit Documented by: Ipratropium [place] (Ipratropium Brom 0.5mg/2.5ml) 0.5 mg NEB Q6HP PRN PRN Reason: SHORTNESS OF BREATH Last Admin: 09/27/20 20:30 Dose: 0.5 mg Documented by: Mannitol (Mannitol 25% 12.5 Gm/50 Ml Vial) 12.5 gm IV EVERY HD PRN PRN Reason: Titrate to SBP (MUST DEFINE) Melatonin (Melatonin 5 Mg Tablet) 5 mg PO BEDTIME [facility] Last Admin: 09/27/20 20:37 Dose: Not Given Documented by: Methylprednisolone Sodium Succinate (Methylprednisolone 125 Mg Inj) 60 mg IV TID [facility] Last Admin: 09/28/20 14:16 Dose: 60 mg Documented by: Metoprolol Tartrate (Metoprolol Tar 50 Mg Tab) 50 mg PO BID [facility] Last Admin: 09/28/20 08:38 Dose: 50 mg Documented by: Ondansetron HCl (Ondansetron 4 Mg/2 Ml Vial) 4 mg IV Q6HP PRN PRN Reason: NAUSEA / VOMITING Sodium Chloride (Flush Normal Saline 10 Ml) 10 ml IV BID [facility] Last Admin: 09/28/20 08:39 Dose: 10 ml Documented by: Thiamine HCl (Thiamine Hcl 100 Mg Tablet) 100 mg PO BID [facility] Last Admin: 09/28/20 08:38 Dose: 100 mg Documented by: Vitamin B Complex/Vit C/Folic Acid (Multivitamins,Therapeut 1 Tab) 1 tab PO DAILY [facility] Last Admin: 09/28/20 08:37 Dose: 1 tab Documented by: Zinc Sulfate (Zinc Sulfate 220 Mg Cap) 220 mg PO DAILY [facility] Last Admin: 09/28/20 08:38 Dose: 220 mg Documented by: Microbiology Results 09/06/20 00:48 Blood - Blood Aerobic Blood Culture - Final No growth in 5 days. 09/06/20 00:48 Blood - Blood Anaerobic Blood Culture - Final No growth in 5 days. Assessment/ Plan: Nephrology Feeling better Persistent dyspnea and hypoxia slowly improving. No acute events overnight. Vitals, medications, blood work and imaging reviewed in the chart. General: In no apparent distress, Oriented x3, Cooperative HEENT: Atraumatic Neck: Supple Respiratory: Diminished Cardiovascular: Regular rate/rhythm, Edema Gastrointestinal: Soft and benign, Non-distended Musculoskeletal: No clubbing, No contractures Integumentary: No rashes, No cyanosis Neurological: Normal speech Laboratory Data (last 24 hrs) 09/06/20 09:09: PT 11.5, INR 1.00, APTT 33.8 09/06/20 09:09: Sodium 131 L, Potassium 4.6, BUN 66 H, Creatinine 12.20 H*, Glucose 80, Total Bilirubin 0.5, AST 120 H, ALT 51, Alkaline Phosphatase 128 H 09/06/20 00:48: WBC 5.00, Hgb 10.4 L, Hct 30.7 L, Plt Count 123 L Imagings Data: EXAM DESCRIPTION: Tejal Single View09/06/2020 9:47 am CLINICAL HISTORY: Shortness of breath COMPARISON: 2019 FINDINGS: Moderate bilateral pulmonary opacities. The heart is mildly enlarged IMPRESSION: Moderate bilateral pulmonary opacities could represent pneumonia or pulmonary edema Conclusions/Impression: A/P: Continue the current POC and Medications other than the changes listed. AM Labs PRN. Recommend daily weight. Please see the orders for complete detai ls. ESRD TTS -Acute HD TIW Hyponatremia Hyperkalemia Acidosis -HD TIW HTN with CKD/ CHF -Continue Amlodipine -Continue Metoprolol -Continue Doxazosin Diastolic CHF -HD TIW -Continue Metoprolol -Continue furosemide DM II with CKD and Polyneuropathy -Continue Lantus Moderate malnutrition -Encourage nutrition -Continue Promod -Give IV Albumin with HD Anemia in CKD -Continue Retacrit DANITA/ Secondary HyperPTH -Continue Vitamin D3 Rhabdomyolysis COVID PNA with hypoxia -Wean Solumedrol as tolerated -Wean Oxygen supplementation as tolerated -Continue inh budesonide Discharge to home once Oxygen requirements improve.
[2020-09-28] MEDS: ASCORBIC ACID 500 MG TABLET PO SCH (21:08)
[2020-09-28] MEDS: ATORVASTATIN 10 MG TAB PO SCH (21:09)
[2020-09-29] MEDS: BUDESONIDE 0.25 MG/2 ML NEB NEB SCH ×2 (07:22→20:30)
[2020-09-29] MEDS: INSULIN -REGULAR HUMAN 50 UNIT/0.5 ML ML SQ SCH ×4 (07:30→21:00)
[2020-09-29] MEDS: METHYLPREDNISOLONE 125 MG INJ IV SCH ×3 (08:27→21:51)
[2020-09-29] MEDS: CALCIUM ACETATE 667 MG TAB PO SCH ×3 (08:27→17:05)
[2020-09-29] MEDS: CALCITROL 0.25 MCG CAP PO SCH (08:27)
[2020-09-29] MEDS: VITAMIN D 5,000 UNIT CAP PO SCH (08:28)
[2020-09-29] MEDS: GLIMEPIRIDE 2 MG TABLET PO SCH (08:28)
[2020-09-29] MEDS: ZINC SULFATE 220 MG CAP PO SCH (08:28)
[2020-09-29] MEDS: AMLODIPINE 10 MG TAB PO SCH (08:28)
[2020-09-29] MEDS: APIXABAN 2.5 MG TABLET PO SCH ×2 (08:28→21:50)
[2020-09-29] MEDS: THIAMINE HCL 100 MG TABLET PO SCH ×2 (08:28→21:51)
[2020-09-29] MEDS: INSULIN GLARGINE 100 UNITS/ML SQ SCH ×2 (08:29→21:52)
[2020-09-29] MEDS: METOPROLOL TAR 50 MG TAB PO SCH ×2 (08:29→21:51)
[2020-09-29] MEDS: DOCUSATE NA 100 MG CAP PO SCH ×2 (08:29→21:00)
[2020-09-29] MEDS: FUROSEMIDE 40 MG TABLET PO SCH ×2 (08:29→17:05)
[2020-09-29] MEDS: MULTIVITAMINS,THERAPEUT 1 TAB PO SCH (08:36)
[2020-09-29] MEDS: HOME MED 1 EA UNK (Linagliptin [Tradjenta] 5 MG Tablet) PO SCH (09:00)
[2020-09-29] MEDS ORDERED: ALBUTEROL 2.5 MG/3 ML NEB SOL NEB PRN (19:00)
--- NOTE | 2020-09-29 20:36 | P.PN ---
Date of Service: 09/29/20 Vital Signs Temp Pulse Resp BP Pulse Ox 97 F 66 16 158/77 H 88 L 09/29/20 16:00 09/29/20 16:00 09/29/20 16:00 09/29/20 16:00 09/29/20 16:00 Medications Acetaminophen (Acetaminophen 500 Mg Tab) 500 mg PO Q4HP PRN PRN Reason: TEMP > 101' F Albuterol Sulfate (Albuterol 2.5 Mg/3 Ml Neb Samanta) 2.5 mg NEB [id number] PRN PRN Reason: SHORTNESS OF BREATH Amlodipine Besylate (Amlodipine 10 Mg Tab) 10 mg PO DAILY [facility] Last Admin: 09/29/20 08:28 Dose: 10 mg Documented by: Apixaban (Apixaban 2.5 Mg Tablet) 2.5 mg PO BID [facility] Last Admin: 09/29/20 08:28 Dose: 2.5 mg Documented by: Ascorbic Acid (Ascorbic Acid 500 Mg Tablet) 500 mg PO BEDTIME [facility] Last Admin: 09/28/20 21:08 Dose: 500 mg Documented by: Atorvastatin Calcium (Atorvastatin 10 Mg Tab) 10 mg PO BEDTIME [facility] Last Admin: 09/28/20 21:09 Dose: 10 mg Documented by: Budesonide (Budesonide 0.25 Mg/2 Ml Neb) 0.25 mg NEB BIDRESP [facility] Last Admin: 09/29/20 07:22 Dose: 0.25 mg Documented by: Calcitriol (Calcitrol 0.25 Mcg Cap) 0.5 mcg PO DAILY [facility] Last Admin: 09/29/20 08:27 Dose: 0.5 mcg Documented by: Calcium Acetate (Ca Acetate 667 Mg Cap) 1,334 mg PO TIDWM [facility] Last Admin: 09/29/20 17:05 Dose: 1,334 mg Documented by: Cholecalciferol (Vitamin D 5,000 Unit Cap) 5,000 unit PO DAILY [facility] Last Admin: 09/29/20 08:28 Dose: 5,000 unit Documented by: Dextrose (D50w 25 Gm/50 Ml Vial) 12.5 gm IV PRN PRN; Protocol PRN Reason: HYPOGLYCEMIA Docusate Sodium (Docusate Na 100 Mg Cap) 100 mg PO BID [facility] Last Admin: 09/29/20 08:29 Dose: Not Given Documented by: Doxazosin Mesylate (Doxazosin 2 Mg Tab) 2 mg PO BEDTIME [facility] Last Admin: 09/28/20 21:00 Dose: Not Given Documented by: Furosemide (Furosemide 40 Mg Tablet) 40 mg PO BIDL [facility] Last Admin: 09/29/20 17:05 Dose: 40 mg Documented by: Glimepiride (Glimepiride 2 Mg Tablet) 4 mg PO ACB [facility] Last Admin: 09/29/20 08:28 Dose: 4 mg Documented by: Glucagon (Glucagon 1 Mg/Vial) 1 mg IM 1X PRN; Protocol PRN Reason: HYPOGLYCEMIA Heparin Sodium (Porcine) (Heparin 1,000 Unit/Ml Vial) 3,000 unit IV EVERY HD PRN PRN Reason: dialysis Last Admin: 09/23/20 10:48 Dose: 3,000 unit Documented by: Home Med (Linagliptin [Tradjenta]) 5 mg PO DAILY [facility] Last Admin: 09/29/20 09:00 Dose: Not Given Documented by: Hydralazine HCl (Hydralazine Hcl 20 Mg/Ml Vial) 10 mg IV Q6HP PRN PRN Reason: Titrate to SBP (MUST DEFINE) Last Admin: 09/28/20 05:19 Dose: 10 mg Documented by: Albumin Human (Albumin 25%) 50 mls @ 100 mls/hr IV EVERY HD [facility] Insulin Glargine (Insulin Glargine 100 Units/Ml) 30 units SQ BID [facility] Last Admin: 09/29/20 08:29 Dose: 30 units Documented by: Insulin Human Regular (Insulin -Regular Human 50 Unit/0.5 Ml Ml) 0 unit SQ ACHS [facility]; Protocol Last Admin: 09/29/20 16:29 Dose: Not Given Documented by: Ipratropium [place] (Ipratropium Brom 0.5mg/2.5ml) 0.5 mg NEB [id number] PRN PRN Reason: SHORTNESS OF BREATH Mannitol (Mannitol 25% 12.5 Gm/50 Ml Vial) 12.5 gm IV EVERY HD PRN PRN Reason: Titrate to SBP (MUST DEFINE) Melatonin (Melatonin 5 Mg Tablet) 5 mg PO BEDTIME [facility] Last Admin: 09/28/20 21:00 Dose: Not Given Documented by: Methylprednisolone Sodium Succinate (Methylprednisolone 125 Mg Inj) 60 mg IV TID [facility] Last Admin: 09/29/20 14:23 Dose: 60 mg Documented by: Metoprolol Tartrate (Metoprolol Tar 50 Mg Tab) 50 mg PO BID [facility] Last Admin: 09/29/20 08:29 Dose: 50 mg Documented by: Ondansetron HCl (Ondansetron 4 Mg/2 Ml Vial) 4 mg IV Q6HP PRN PRN Reason: NAUSEA / VOMITING Sodium Chloride (Flush Normal Saline 10 Ml) 10 ml IV BID [facility] Last Admin: 09/29/20 08:30 Dose: 10 ml Documented by: Thiamine HCl (Thiamine Hcl 100 Mg Tablet) 100 mg PO BID [facility] Last Admin: 09/29/20 08:28 Dose: 100 mg Documented by: Vitamin B Complex/Vit C/Folic Acid (Multivitamins,Therapeut 1 Tab) 1 tab PO DAILY [facility] Last Admin: 09/29/20 08:36 Dose: 1 tab Documented by: Zinc Sulfate (Zinc Sulfate 220 Mg Cap) 220 mg PO DAILY [facility] Last Admin: 09/29/20 08:28 Dose: 220 mg Documented by: Microbiology Results 09/06/20 00:48 Blood - Blood Aerobic Blood Culture - Final No growth in 5 days. 09/06/20 00:48 Blood - Blood Anaerobic Blood Culture - Final No growth in 5 days. Assessment/ Plan: Nephrology Feeling better Persistent dyspnea and hypoxia slowly improving. No acute events overnight. Vitals, medications, blood work and imaging reviewed in the chart. General: In no apparent distress, Oriented x3, Cooperative HEENT: Atraumatic Neck: Supple Respiratory: Diminished Cardiovascular: Regular rate/rhythm, Edema Gastrointestinal: Soft and benign, Non-distended Musculoskeletal: No clubbing, No contractures Integumentary: No rashes, No cyanosis Neurological: Normal speech Laboratory Data (last 24 hrs) 09/06/20 09:09: PT 11.5, INR 1.00, APTT 33.8 09/06/20 09:09: Sodium 131 L, Potassium 4.6, BUN 66 H, Creatinine 12.20 H*, Glucose 80, Total Bilirubin 0.5, AST 120 H, ALT 51, Alkaline Phosphatase 128 H 09/06/20 00:48: WBC 5.00, Hgb 10.4 L, Hct 30.7 L, Plt Count 123 L Imagings Data: EXAM DESCRIPTION: Tejal Single View09/06/2020 9:47 am CLINICAL HISTORY: Shortness of breath COMPARISON: 2020 FINDINGS: Moderate bilateral pulmonary opacities. The heart is mildly enlarged IMPRESSION: Moderate bilateral pulmonary opacities could represent pneumonia or pulmonary edema Conclusions/Impression: A/P: Continue the current POC and Medications other than the changes listed. AM Labs PRN. Recommend daily weight. Please see the orders for complete details. ESRD TTS -Acute HD TIW -Seen and examined on dialysis. Hyponatremia Hyperkalemia Acidosis -HD TIW HTN with CKD/ CHF -Continue Amlodipine -Continue Metoprolol -Continue Doxazosin Diastolic CHF -HD TIW -Continue Metoprolol -Continue furosemide DM II with CKD and Polyneuropathy -Continue Lantus Moderate malnutrition -Encourage nutrition -Continue Promod -Give IV Albumin with HD Anemia in CKD -Continue Retacrit DANITA/ Secondary HyperPTH -Continue Vitamin D3 Rhabdomyolysis COVID PNA with hypoxia -Wean Solumedrol as tolerated -Wean Oxygen supplementation as tolerated -Continue inh budesonide Discharge to home once Oxygen requirements improve.
[2020-09-29] MEDS: MELATONIN 5 MG TABLET PO SCH (21:00)
[2020-09-29] MEDS: DOXAZOSIN 2 MG TAB PO SCH (21:51)
[2020-09-29] MEDS: ATORVASTATIN 10 MG TAB PO SCH (21:51)
[2020-09-29] MEDS: ASCORBIC ACID 500 MG TABLET PO SCH (21:53)
--- NOTE | 2020-09-30 05:37 | P.PN ---
Date of Service: 09/27/20 Subjective Oxygen requirements have decreased to 5 L. However, he states whenever he gets out of bed he gets really tachypneic. His oxygen saturations dropped immediately to 70%. Physical therapy is working with him aggressively as well. Hopefully he continues to improve and we can discharge him over the next 48-72 hr. He does not want to go to LTAC for pulmonary therapy. Review of Systems 10-point ROS is otherwise unremarkable Physical Examination - Vital Signs Reviewed - Physical Exam General: Alert, In no apparent distress, Oriented x3 Respiratory: Clear bilaterally Cardiovascular: Regular rate/rhythm, Normal S1 S2, No murmurs Gastrointestinal: Normal bowel sounds, Soft and benign, Non-distended, No tenderness Musculoskeletal: No clubbing, No swelling, No tenderness Neurological: Sensation intact, Cranial nerves 3-12 intact Assessment & Plan - Problems (Diagnosis) (1) Pneumonia due to COVID-19 virus Current Visit: Yes Status: Acute (2) ESRD (end stage renal disease) Current Visit: No Status: Acute (3) History of diabetes mellitus, type II Current Visit: No Status: Chronic (4) Hypertension Current Visit: No Status: Chronic Qualifiers: Hypertension type: essential hypertension Qualified Code(s): I10 - Essential (primary) hypertension - Plan No change in current plan of care. 1. May need to wean his IV steroids. Clinically doing well. 2. Weaning down oxygenation. Switched over to low wall nasal cannula at 5L; still becomes tachypneic on ambulation so we definitely need to strengthen him prior to discharging 3. Arrange for home oxygen 4. Pulmonary consultation appreciated 5. Continue with albuterol inhaler therapy; 6. Monitor inflammatory markers 7. Hemodialysis per Nephrology 8. GI and DVT prophylaxis
--- NOTE | 2020-09-30 05:44 | P.PN ---
Date of Service: 09/28/20 Subjective Oxygen requirements have decreased to 4L. However, he desats quickly and needs assistance with physical therapy with ambulation. Patient refusing LTAC placement. Anticipate discharge over the next few days. Review of Systems 10-point ROS is otherwise unremarkable Physical Examination - Vital Signs Reviewed - Physical Exam General: Alert, In no apparent distress, Oriented x3 Respiratory: Clear bilaterally Cardiovascular: Regular rate/rhythm, Normal S1 S2, No murmurs Gastrointestinal: Normal bowel sounds, Soft and benign, Non-distended, No tenderness Musculoskeletal: No clubbing, No swelling, No tenderness Neurological: Sensation intact, Cranial nerves 3-12 intact Assessment & Plan - Problems (Diagnosis) (1) Pneumonia due to COVID-19 virus Current Visit: Yes Status: Acute (2) ESRD (end stage renal disease) Current Visit: No Status: Acute (3) History of diabetes mellitus, type II Current Visit: No Status: Chronic (4) Hypertension Current Visit: No Status: Chronic Qualifiers: Hypertension type: essential hypertension Qualified Code(s): I10 - Essential (primary) hypertension - Plan No change in current plan of care. 1. Decrease IV steroids to Q 12 hr and at 40 mg. 2. Weaning down oxygenation. Switched over to low wall nasal cannula at 4L; still becomes tachypneic on ambulation so we definitely need to strengthen him prior to discharging 3. Arrange for home oxygen 4. Pulmonary consultation appreciated 5. Continue with albuterol inhaler therapy; 6. Monitor inflammatory markers 7. Hemodialysis per Nephrology 8. GI and DVT prophylaxis
--- NOTE | 2020-09-30 05:45 | P.PN ---
Date of Service: 09/29/20 Subjective Patient feeling really weak after hemodialysis. Oxygen requirements still had 4 L. However, he desats quickly. he did not feel like doing much with physical therapy. Patient refusing LTAC placement. Anticipate discharge over the next few days. Review of Systems 10-point ROS is otherwise unremarkable Physical Examination - Vital Signs Reviewed - Physical Exam General: Alert, In no apparent distress, Oriented x3 Respiratory: Clear bilaterally Cardiovascular: Regular rate/rhythm, Normal S1 S2, No murmurs Gastrointestinal: Normal bowel sounds, Soft and benign, Non-distended, No tenderness Musculoskeletal: No clubbing, No swelling, No tenderness Neurological: Sensation intact, Cranial nerves 3-12 intact Assessment & Plan - Problems (Diagnosis) (1) Pneumonia due to COVID-19 virus Current Visit: Yes Status: Acute (2) ESRD (end stage renal disease) Current Visit: No Status: Acute (3) History of diabetes mellitus, type II Current Visit: No Status: Chronic (4) Hypertension Current Visit: No Status: Chronic Qualifiers: Hypertension type: essential hypertension Qualified Code(s): I10 - Es sential (primary) hypertension - Plan No change in current plan of care. 1. Decrease IV steroids to Q 12 hr and at 40 mg. 2. Decreased oxygen requirements as well. With his strength improves then possible discharge. Decrease steroids 3. Arrange for home oxygen 4. Pulmonary consultation appreciated 5. Continue with albuterol inhaler therapy; 6. Monitor inflammatory markers 7. Hemodialysis per Nephrology 8. GI and DVT prophylaxis
[2020-09-30] MEDS ORDERED: METHYLPREDNISOLONE 125 MG INJ IV SCH (06:00)
[2020-09-30] MEDS: METHYLPREDNISOLONE 40 MG INJ IV SCH ×2 (06:38→17:09)
[2020-09-30] MEDS: INSULIN -REGULAR HUMAN 50 UNIT/0.5 ML ML SQ SCH ×4 (07:30→20:44)
[2020-09-30] MEDS: BUDESONIDE 0.25 MG/2 ML NEB NEB SCH ×2 (08:30→20:30)
[2020-09-30] MEDS: IPRATROPIUM BROM 0.5MG/2.5ML NEB PRN (08:30)
[2020-09-30] MEDS: APIXABAN 2.5 MG TABLET PO SCH ×2 (08:45→20:41)
[2020-09-30] MEDS: CALCITROL 0.25 MCG CAP PO SCH (08:45)
[2020-09-30] MEDS: CALCIUM ACETATE 667 MG TAB PO SCH ×3 (08:45→17:07)
[2020-09-30] MEDS: AMLODIPINE 10 MG TAB PO SCH (08:45)
[2020-09-30] MEDS: VITAMIN D 5,000 UNIT CAP PO SCH (08:45)
[2020-09-30] MEDS: MULTIVITAMINS,THERAPEUT 1 TAB PO SCH (08:45)
[2020-09-30] MEDS: ZINC SULFATE 220 MG CAP PO SCH (08:45)
[2020-09-30] MEDS: METOPROLOL TAR 50 MG TAB PO SCH ×3 (08:46→20:42)
[2020-09-30] MEDS: HYDRALAZINE HCL 20 MG/ML VIAL IV PRN (08:46)
[2020-09-30] MEDS: THIAMINE HCL 100 MG TABLET PO SCH ×2 (08:46→20:44)
[2020-09-30] MEDS: FUROSEMIDE 40 MG TABLET PO SCH ×2 (08:46→17:07)
[2020-09-30] MEDS: GLIMEPIRIDE 2 MG TABLET PO SCH (08:46)
[2020-09-30] MEDS: EPOETIN ALFA-EPBX 4,000 UNIT/ML VIAL SQ SCH (08:47)
[2020-09-30] MEDS: INSULIN GLARGINE 100 UNITS/ML SQ SCH ×2 (08:47→20:45)
[2020-09-30] MEDS: DOCUSATE NA 100 MG CAP PO SCH ×2 (08:47→20:41)
[2020-09-30] MEDS: HOME MED 1 EA UNK (Linagliptin [Tradjenta] 5 MG Tablet) PO SCH (08:48)
--- NOTE | 2020-09-30 09:31 | P.PN ---
Date of Service: 09/30/20 Subjective seen this am. no new c/o. on TTS dialysis schedule. Review of Systems 10-point ROS is otherwise unremarkable Physical Examination - Vital Signs Reviewed - Physical Exam General: Alert, In no apparent distress, Oriented x3 Respiratory: Clear bilaterally Cardiovascular: Regular rate/rhythm, Normal S1 S2, No murmurs Gastrointestinal: Normal bowel sounds, Soft and benign, Non-distended, No tenderness Musculoskeletal: No clubbing, No swelling, No tenderness Neurological: Sensation intact, Cranial nerves 3-12 intact Assessment & Plan - Problems (Diagnosis) (1) Pneumonia due to COVID-19 virus Current Visit: Yes Status: Acute (2) ESRD (end stage renal disease) Current Visit: No Status: Acute (3) History of diabetes mellitus, type II Current Visit: No Status: Chronic (4) Hypertension Current Visit: No Status: Chronic Qualifiers: Hypertension type: essential hypertension Qualified Code(s): I10 - Essential (primary) hypertension - Plan: He is on TTS dialysis schedule. we will continue HD as per schedule. nephrology following. we will continue steroids at reduced doses. we will continue supplemental oxygen and wean off as tolerated. we will follow his symptomatology closely. DVT and GI prophylaxis on board.
[2020-09-30 12:12] LABS: Absolute Lymphocytes (CBC) 0.2 K/uL (0.7-4.9); Basophils % 0.2 % (0-1.3); Lymphocytes % 2.3 % (15.3-44.8); MPV 9.5 fL (7.6-11.3); RBC Red Blood Cell Count 3.23 M/uL (4.33-5.43)
[2020-09-30 12:56] LABS: Potassium 4.6 mmol/L (3.5-5.1)
[2020-09-30 13:15] LABS: Blood Morphology Comment NOT SEEN (NOT SEEN); Platelet Estimate DECR
[2020-09-30] MEDS: ASCORBIC ACID 500 MG TABLET PO SCH (20:41)
[2020-09-30] MEDS: MELATONIN 5 MG TABLET PO SCH (20:41)
[2020-09-30] MEDS: ATORVASTATIN 10 MG TAB PO SCH (20:41)
[2020-09-30] MEDS: DOXAZOSIN 2 MG TAB PO SCH (20:42)
--- NOTE | 2020-09-30 21:23 | P.PN ---
Date of Service: 09/30/20 Vital Signs Temp Pulse Resp BP Pulse Ox 97.7 F 61 20 140/80 85 L 09/30/20 20:00 09/30/20 20:42 09/30/20 20:00 09/30/20 20:42 09/30/20 20:00 Medications Acetaminophen (Acetaminophen 500 Mg Tab) 500 mg PO Q4HP PRN PRN Reason: TEMP > 101' F Albuterol Sulfate (Albuterol 2.5 Mg/3 Ml Neb Samanta) 2.5 mg NEB [id number] PRN PRN Reason: SHORTNESS OF BREATH Last Admin: 09/30/20 08:30 Dose: 2.5 mg Documented by: Amlodipine Besylate (Amlodipine 10 Mg Tab) 10 mg PO DAILY [facility] Last Admin: 09/30/20 08:45 Dose: 10 mg Documented by: Apixaban (Apixaban 2.5 Mg Tablet) 2.5 mg PO BID [facility] Last Admin: 09/30/20 20:41 Dose: 2.5 mg Documented by: Ascorbic Acid (Ascorbic Acid 500 Mg Tablet) 500 mg PO BEDTIME [facility] Last Admin: 09/30/20 20:41 Dose: 500 mg Documented by: Atorvastatin Calcium (Atorvastatin 10 Mg Tab) 10 mg PO BEDTIME [facility] Last Admin: 09/30/20 20:41 Dose: 10 mg Documented by: Budesonide (Budesonide 0.25 Mg/2 Ml Neb) 0.25 mg NEB BIDRESP [facility] Last Admin: 09/30/20 08:30 Dose: 0.25 mg Documented by: Calcitriol (Calcitrol 0.25 Mcg Cap) 0.5 mcg PO DAILY [facility] Last Admin: 09/30/20 08:45 Dose: 0.5 mcg Documented by: Calcium Acetate (Ca Acetate 667 Mg Cap) 1,334 mg PO TIDWM [facility] Last Admin: 09/30/20 17:07 Dose: 1,334 mg Documented by: Cholecalciferol (Vitamin D 5,000 Unit Cap) 5,000 unit PO DAILY [facility] Last Admin: 09/30/20 08:45 Dose: 5,000 unit Documented by: Dextrose (D50w 25 Gm/50 Ml Vial) 12.5 gm IV PRN PRN; Protocol PRN Reason: HYPOGLYCEMIA Docusate Sodium (Docusate Na 100 Mg Cap) 100 mg PO BID [facility] Last Admin: 09/30/20 20:41 Dose: 100 mg Documented by: Doxazosin Mesylate (Doxazosin 2 Mg Tab) 2 mg PO BEDTIME [facility] Last Admin: 09/30/20 20:42 Dose: 2 mg Documented by: Furosemide (Furosemide 40 Mg Tablet) 40 mg PO BIDL [facility] Last Admin: 09/30/20 17:07 Dose: 40 mg Documented by: Glimepiride (Glimepiride 2 Mg Tablet) 4 mg PO ACB [facility] Last Admin: 09/30/20 08:46 Dose: 4 mg Documented by: Glucagon (Glucagon 1 Mg/Vial) 1 mg IM 1X PRN; Protocol PRN Reason: HYPOGLYCEMIA Heparin Sodium (Porcine) (Heparin 1,000 Unit/Ml Vial) 3,000 unit IV EVERY HD PRN PRN Reason: dialysis Last Admin: 09/23/20 10:48 Dose: 3,000 unit Documented by: Home Med (Linagliptin [Tradjenta]) 5 mg PO DAILY [facility] Last Admin: 09/30/20 08:48 Dose: Not Given Documented by: Hydralazine HCl (Hydralazine Hcl 20 Mg/Ml Vial) 10 mg IV Q6HP PRN PRN Reason: Titrate to SBP (MUST DEFINE) Last Admin: 09/30/20 08:46 Dose: 10 mg Documented by: Albumin Human (Albumin 25%) 50 mls @ 100 mls/hr IV EVERY HD [facility] Insulin Glargine (Insulin Glargine 100 Units/Ml) 30 units SQ BID [facility] Last Admin: 09/30/20 20:45 Dose: Not Given Documented by: Insulin Human Regular (Insulin -Regular Human 50 Unit/0.5 Ml Ml) 0 unit SQ ACHS [facility]; Protocol Last Admin: 09/30/20 20:44 Dose: Not Given Documented by: Ipratropium [place] (Ipratropium Brom 0.5mg/2.5ml) 0.5 mg NEB [id number] PRN PRN Reason: SHORTNESS OF BREATH Last Admin: 09/30/20 08:30 Dose: 0.5 mg Documented by: Mannitol (Mannitol 25% 12.5 Gm/50 Ml Vial) 12.5 gm IV EVERY HD PRN PRN Reason: Titrate to SBP (MUST DEFINE) Melatonin (Melatonin 5 Mg Tablet) 5 mg PO BEDTIME [facility] Last Admin: 09/30/20 20:41 Dose: 5 mg Documented by: Methylprednisolone Sodium Succinate (Methylprednisolone 40 Mg Inj) 40 mg IV Q12H [facility] Last Admin: 09/30/20 17:09 Dose: 40 mg Documented by: Metoprolol Tartrate (Metoprolol Tar 50 Mg Tab) 100 mg PO BID [facility] Last Admin: 09/30/20 20:42 Dose: 100 mg Documented by: Ondansetron HCl (Ondansetron 4 Mg/2 Ml Vial) 4 mg IV Q6HP PRN PRN Reason: NAUSEA / VOMITING Sodium Chloride (Flush Normal Saline 10 Ml) 10 ml IV BID [facility] Last Admin: 09/30/20 20:43 Dose: 10 ml Documented by: Thiamine HCl (Thiamine Hcl 100 Mg Tablet) 100 mg PO BID [facility] Last Admin: 09/30/20 20:44 Dose: 100 mg Documented by: Vitamin B Complex/Vit C/Folic Acid (Multivitamins,Therapeut 1 Tab) 1 tab PO DAILY [facility] Last Admin: 09/30/20 08:45 Dose: 1 tab Documented by: Zinc Sulfate (Zinc Sulfate 220 Mg Cap) 220 mg PO DAILY [facility] Last Admin: 09/30/20 08:45 Dose: 220 mg Documented by: Microbiology Results 09/06/20 00:48 Blood - Blood Aerobic Blood Culture - Final No growth in 5 days. 09/06/20 00:48 Blood - Blood Anaerobic Blood Culture - Final No growth in 5 days. Assessment/ Plan: Nephrology Feeling better Persistent dyspnea and hypoxia slowly improving. No acute events overnight. Vitals, medications, blood work and imaging reviewed in the chart. General: In no apparent distress, Oriented x3, Cooperative HEENT: Atraumatic Neck: Supple Respiratory: Diminished Cardiovascular: Regular rate/rhythm, Edema Gastrointestinal: Soft and benign, Non-distended Musculoskeletal: No clubbing, No contractures Integumentary: No rashes, No cyanosis Neurological: Normal speech Laboratory Data (last 24 hrs) 09/06/20 09:09: PT 11.5, INR 1.00, APTT 33.8 09/06/20 09:09: Sodium 131 L, Potassium 4.6, BUN 66 H, Creatinine 12.20 H*, Glucose 80, Total Bilirubin 0.5, AST 120 H, ALT 51, Alkaline Phosphatase 128 H 09/06/20 00:48: WBC 5.00, Hgb 10.4 L, Hct 30.7 L, Plt Count 123 L Imagings Data: EXAM DESCRIPTION: Tejal Single View09/06/2020 9:47 am CLINICAL HISTORY: Shortness of breath COMPARISON: 2019 FINDINGS: Moderate bilateral pulmonary opacities. The heart is mildly enlarged IMPRESSION: Moderate bilateral pulmonary opacities could represent pneumonia or pulmonary edema Conclusions/Impression: A/P: Continue the current POC and Medications other than the changes listed. AM Labs PRN. Recommend daily weight. Please see the orders for complete details. ESRD TTS -Acute HD TIW Hyponatremia Hyperkalemia Acidosis -HD TIW HTN with CKD/ CHF -Continue Amlodipine -Continue Metoprolol -Continue Doxazosin Diastolic CHF -HD TIW -Continue Metoprolol -Continue furosemide DM II with CKD and Polyneuropathy -Continue Lantus Moderate malnutrition -Encourage nutrition -Continue Promod -Give IV Albumin with HD Anemia in CKD -Continue Retacrit DANITA/ Secondary HyperPTH -Continue Vitamin D3 Rhabdomyolysis COVID PNA with hypoxia -Wean Solumedrol as tolerated -Wean Oxygen supplementation as tolerated -Continue inh budesonide Discharge to home once Oxygen requirements improve.
[2020-10-01] MEDS: HYDRALAZINE HCL 20 MG/ML VIAL IV PRN (00:31)
[2020-10-01] MEDS: METHYLPREDNISOLONE 40 MG INJ IV SCH ×2 (06:06→17:26)
[2020-10-01 06:50] LABS: Absolute Lymphocytes (CBC) 0.3 K/uL (0.7-4.9); Basophils % 0.3 % (0-1.3); Lymphocytes % 5.8 % (15.3-44.8)
[2020-10-01] MEDS: INSULIN -REGULAR HUMAN 50 UNIT/0.5 ML ML SQ SCH ×4 (07:30→21:33)
[2020-10-01 08:00] LABS: BUN Blood Urea Nitrogen 91 mg/dL (7-18); Bicarbonate 27 mmol/L (21-32); C-Reactive Protein < 2.90 mg/L (<3.00); Ferritin 785.9 ng/mL (26-388); Glucose Level 55 mg/dL (74-106); Magnesium 2.4 mg/dL (1.8-2.4); Potassium 4.6 mmol/L (3.5-5.1); Sodium Level 140 mmol/L (136-145)
[2020-10-01] MEDS: MULTIVITAMINS,THERAPEUT 1 TAB PO SCH (08:03)
[2020-10-01] MEDS: GLIMEPIRIDE 2 MG TABLET PO SCH (08:03)
[2020-10-01] MEDS: METOPROLOL TAR 50 MG TAB PO SCH ×2 (08:03→21:31)
[2020-10-01] MEDS: CALCIUM ACETATE 667 MG TAB PO SCH ×3 (08:03→17:00)
[2020-10-01] MEDS: APIXABAN 2.5 MG TABLET PO SCH ×2 (08:04→21:32)
[2020-10-01] MEDS: FUROSEMIDE 40 MG TABLET PO SCH ×3 (08:04→17:26)
[2020-10-01] MEDS: THIAMINE HCL 100 MG TABLET PO SCH ×2 (08:04→21:31)
[2020-10-01] MEDS: CALCITROL 0.25 MCG CAP PO SCH (08:04)
[2020-10-01] MEDS: AMLODIPINE 10 MG TAB PO SCH (08:04)
[2020-10-01] MEDS: ZINC SULFATE 220 MG CAP PO SCH (08:04)
[2020-10-01] MEDS: DOCUSATE NA 100 MG CAP PO SCH ×2 (08:05→21:00)
[2020-10-01] MEDS: HOME MED 1 EA UNK (Linagliptin [Tradjenta] 5 MG Tablet) PO SCH (08:05)
[2020-10-01] MEDS: VITAMIN D 5,000 UNIT CAP PO SCH (08:07)
[2020-10-01] MEDS: BUDESONIDE 0.25 MG/2 ML NEB NEB SCH ×2 (08:40→21:00)
[2020-10-01] MEDS: INSULIN GLARGINE 100 UNITS/ML SQ SCH ×2 (09:35→21:33)
--- NOTE | 2020-10-01 12:39 | P.PN ---
Subjective Date of Service: 10/01/20 Primary Care Provider: Dr. Davis; Nephrology-Dr. Garibay Chief Complaint: Leach virus pneumonia Subjective: No new changes (still reported low 02 sat with ambulation) Physical Examination - Vital Signs Temperature: 97.0 F Blood Pressure: 135/76 Pulse: 63 Respirations: 20 Pulse Ox (%): 98 - Physical Exam General: Alert, Oriented x3, Obese, Other (on 6 L 02 NC ) HEENT: Atraumatic, Normocephalic, PERRLA Neck: Supple, 2+ carotid pulse no bruit, JVD not distended Respiratory: Normal air movement, Diminished Cardiovascular: Regular rate/rhythm, Normal S1 S2, Edema Gastrointestinal: Normal bowel sounds, Soft and benign, Non-distended Integumentary: No rashes, No breakdown Neurological: Normal speech, Normal strength at 5/5 x4 extr, Cranial nerves 3-12 intact - Studies Medications List Reviewed: Yes Assessment And Plan Physician Review Additional Text: Physical exam: Patient obese , alert, cooperative. Currently on 6 L per nasal cannula. Still some desaturations with ambulation. Heart: Regular rate Lungs: Currently on 6 L per nasal cannula. Good air movement bilateral Abdomen: Soft Extremities: Good range of motion. No focal deficits. Impression: Fever, dyspnea secondary to acute respiratory failure with hypoxia related to bilateral COVID pneumonia ESRD on hemodialysis DM Type 2 with hyperglycemia HTN Anemia of chronic disease Hyperlipidemia Thrombocytopenia likely related to COVID Plan: Fever, dyspnea secondary to acute respiratory failure with hypoxia related to bilateral COVID pneumonia: -still requiring supplemental oxygen at high flow rate -follow post dialysis today -continue steroids/ivermectin/vitamin supplementation -follow with Pulmonary -target extra UF off at least 4-5 L today and follow if improvement in oxygen requirements Plan to discharge home when requiring less than 4 L/min of nasal cannula oxygen ESRD on hemodialysis: Continue with nephrology recommendation. Hemodialysis today, Continue with dialysis every Saturday, and Saturday. DM Type 2 with hyperglycemia: A1c elevated at 8.6. Blood sugars better controlled. Continue Lantus. Sliding scale in place. HTN: Blood pressure controlled. Continue with current medications. Anemia of chronic disease: Will monitor and adjust appropriately. Hyperlipidemia: Home medication restarted Thrombocytopenia likely related to COVID: Improvement noted. Will monitor closely.
[2020-10-01] MEDS: ASCORBIC ACID 500 MG TABLET PO SCH (21:31)
[2020-10-01] MEDS: MELATONIN 5 MG TABLET PO SCH (21:32)
[2020-10-01] MEDS: DOXAZOSIN 2 MG TAB PO SCH (21:32)
[2020-10-01] MEDS: ATORVASTATIN 10 MG TAB PO SCH (21:32)
[2020-10-02 04:56] LABS: Absolute Lymphocytes (CBC) 0.3 K/uL (0.7-4.9); Basophils % 0.5 % (0-1.3); Hematocrit 25.7 % (39.6-49.0); Lymphocytes % 5.5 % (15.3-44.8); MPV 8.5 fL (7.6-11.3); RBC Red Blood Cell Count 2.98 M/uL (4.33-5.43)
[2020-10-02 05:20] LABS: BUN Blood Urea Nitrogen 60 mg/dL (7-18); Bicarbonate 28 mmol/L (21-32); C-Reactive Protein < 2.90 mg/L (<3.00); Ferritin 845.3 ng/mL (26-388); Glucose Level 132 mg/dL (74-106); Magnesium 2.2 mg/dL (1.8-2.4); Potassium 4.3 mmol/L (3.5-5.1); Sodium Level 140 mmol/L (136-145)
[2020-10-02] MEDS: METHYLPREDNISOLONE 40 MG INJ IV SCH ×2 (05:59→17:23)
[2020-10-02] MEDS: INSULIN -REGULAR HUMAN 50 UNIT/0.5 ML ML SQ SCH ×4 (07:30→21:00)
[2020-10-02] MEDS: CALCIUM ACETATE 667 MG TAB PO SCH ×3 (08:00→17:00)
[2020-10-02] MEDS: THIAMINE HCL 100 MG TABLET PO SCH ×2 (08:27→21:15)
[2020-10-02] MEDS: GLIMEPIRIDE 2 MG TABLET PO SCH (08:27)
[2020-10-02] MEDS: VITAMIN D 5,000 UNIT CAP PO SCH (08:27)
[2020-10-02] MEDS: APIXABAN 2.5 MG TABLET PO SCH ×2 (08:27→21:15)
[2020-10-02] MEDS: AMLODIPINE 10 MG TAB PO SCH (08:28)
[2020-10-02] MEDS: MULTIVITAMINS,THERAPEUT 1 TAB PO SCH (08:28)
[2020-10-02] MEDS: METOPROLOL TAR 50 MG TAB PO SCH ×2 (08:28→21:14)
[2020-10-02] MEDS: ZINC SULFATE 220 MG CAP PO SCH (08:28)
[2020-10-02] MEDS: FUROSEMIDE 40 MG TABLET PO SCH ×2 (08:28→17:00)
[2020-10-02] MEDS: INSULIN GLARGINE 100 UNITS/ML SQ SCH ×2 (08:29→21:19)
[2020-10-02] MEDS: DOCUSATE NA 100 MG CAP PO SCH ×2 (08:29→21:00)
[2020-10-02] MEDS: CALCITROL 0.25 MCG CAP PO SCH (08:30)
[2020-10-02] MEDS: HOME MED 1 EA UNK (Linagliptin [Tradjenta] 5 MG Tablet) PO SCH (08:30)
[2020-10-02] MEDS: BUDESONIDE 0.25 MG/2 ML NEB NEB SCH ×2 (08:40→19:55)
[2020-10-02] MEDS: IPRATROPIUM BROM 0.5MG/2.5ML NEB PRN (08:40)
--- NOTE | 2020-10-02 13:16 | P.PN ---
Subjective Date of Service: 10/02/20 Primary Care Provider: Dr. Davis; Nephrology-Dr. Garibay Chief Complaint: Leach virus pneumonia Subjective: No new changes, No C/O voiced (-SOb much improved post dialysis yesterday - tolerating 4 L NC well now) Physical Examination - Vital Signs Temperature: 97.1 F Blood Pressure: 144/84 Pulse: 62 Respirations: 16 Pulse Ox (%): 94 - Physical Exam General: Alert, In no apparent distress, Oriented x3, Obese HEENT: Atraumatic, Normocephalic, PERRLA Neck: 2+ carotid pulse no bruit, JVD not distended Respiratory: Normal air movement, Diminished Cardiovascular: No edema, Normal S1 S2, Abnormal S3 Gastrointestinal: Normal bowel sounds, Soft and benign, Non-distended Neurological: Normal gait, Normal speech, Normal strength at 5/5 x4 extr, Cranial nerves 3-12 intact - Studies Medications List Reviewed: Yes Assessment And Plan Physician Review: Patient Assessed, Agree with Above Assessment and Plan Physician Review Additional Text: Physical exam: Patient obese , alert, cooperative. Currently on 6 L per nasal cannula. Improving saturations with ambulation. Heart: Regular rate Lungs: wean down to 4 L per nasal cannula. Good air movement bilateral Abdomen: Soft Extremities: Good range of motion. No focal deficits. Impression: Fever, dyspnea secondary to acute respiratory failure with hypoxia related to bilateral COVID pneumonia ESRD on hemodialysis DM Type 2 with hyperglycemia HTN Anemia of chronic disease Hyperlipidemia Thrombocytopenia likely related to COVID Plan: Fever, dyspnea secondary to acute respiratory failure with hypoxia related to bilateral COVID pneumonia: Improved , resolved fever -Weaning down supplemental oxygen -Review of his hospital stay recurrent hypoxia and desaturation with increased oxygen need typically all cause pre dialysis and improved post dialysis -patient symptoms consistent with contribution of fluid overload to cold feet pneumonia -need for increased dialysis sessions stool 4 times a week frequency discuss with patient and is agreeable -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 Plan for patient to have dialysis in a.m./Saturday here for extra ultrafiltration then discharged home continues regular dialysis on Saturday still requiring supplemental oxygen at high flow rate - -continue steroids/s/p Remdesivir/ivermectin/vitamin supplementation -continue Pulmonary follow up -Home 02 arrange for dc in am ESRD on hemodialysis: Continue with nephrology recommendation. Hemodialysis in am - Continue with dialysis every Saturday, and Saturday. DM Type 2 with hyperglycemia: A1c elevated at 8.6. Blood sugars better controlled. Continue Lantus. Sliding scale in place. HTN: Blood pressure controlled. Continue with current medications. Anemia of chronic disease: Will monitor and adjust appropriately. Hyperlipidemia: Home medication restarted Thrombocytopenia likely related to COVID: Improvement noted. Will monitor closely. Time Spent Managing PTS Care (In Minutes): 35
[2020-10-02] MEDS ORDERED: FUROSEMIDE 40 MG/4 ML VIAL IV ONE (13:17)
[2020-10-02] MEDS: MELATONIN 5 MG TABLET PO SCH (21:00)
[2020-10-02] MEDS: DOXAZOSIN 2 MG TAB PO SCH (21:13)
[2020-10-02] MEDS: ATORVASTATIN 10 MG TAB PO SCH (21:14)
[2020-10-02] MEDS: ASCORBIC ACID 500 MG TABLET PO SCH (21:15)
[2020-10-03 04:28] LABS: Absolute Lymphocytes (CBC) 0.4 K/uL (0.7-4.9); Basophils % 0.3 % (0-1.3); Hematocrit 24.2 % (39.6-49.0); MPV 8.9 fL (7.6-11.3); RBC Red Blood Cell Count 2.81 M/uL (4.33-5.43)
[2020-10-03 04:47] LABS: BUN Blood Urea Nitrogen 81 mg/dL (7-18); Bicarbonate 27 mmol/L (21-32); Ferritin 818.8 ng/mL (26-388); Glucose Level 118 mg/dL (74-106); Magnesium 2.3 mg/dL (1.8-2.4); Potassium 4.7 mmol/L (3.5-5.1); Sodium Level 139 mmol/L (136-145)
[2020-10-03 04:50] LABS: C-Reactive Protein < 2.90 mg/L (<3.00)
[2020-10-03] MEDS: METHYLPREDNISOLONE 40 MG INJ IV SCH ×2 (05:16→18:00)
[2020-10-03] MEDS: BUDESONIDE 0.25 MG/2 ML NEB NEB SCH ×2 (07:18→19:35)
[2020-10-03] MEDS: INSULIN -REGULAR HUMAN 50 UNIT/0.5 ML ML SQ SCH ×4 (07:30→21:00)
[2020-10-03] MEDS: METOPROLOL TAR 50 MG TAB PO SCH ×2 (08:12→22:00)
[2020-10-03] MEDS: VITAMIN D 5,000 UNIT CAP PO SCH (08:12)
[2020-10-03] MEDS: CALCITROL 0.25 MCG CAP PO SCH (08:12)
[2020-10-03] MEDS: MULTIVITAMINS,THERAPEUT 1 TAB PO SCH (08:13)
[2020-10-03] MEDS: GLIMEPIRIDE 2 MG TABLET PO SCH (08:13)
[2020-10-03] MEDS: DOCUSATE NA 100 MG CAP PO SCH ×2 (08:13→21:00)
[2020-10-03] MEDS: CALCIUM ACETATE 667 MG TAB PO SCH ×3 (08:13→16:45)
[2020-10-03] MEDS: APIXABAN 2.5 MG TABLET PO SCH ×2 (08:14→22:00)
[2020-10-03] MEDS: AMLODIPINE 10 MG TAB PO SCH (08:14)
[2020-10-03] MEDS: ZINC SULFATE 220 MG CAP PO SCH (08:14)
[2020-10-03] MEDS: THIAMINE HCL 100 MG TABLET PO SCH ×2 (08:14→22:01)
[2020-10-03] MEDS: FUROSEMIDE 40 MG TABLET PO SCH ×2 (08:14→15:40)
[2020-10-03] MEDS: HOME MED 1 EA UNK (Linagliptin [Tradjenta] 5 MG Tablet) PO SCH (08:15)
[2020-10-03] MEDS: INSULIN GLARGINE 100 UNITS/ML SQ SCH ×2 (08:15→22:33)
[2020-10-03] MEDS: BUMETANIDE 1 MG TABLET PO SCH (09:45)
[2020-10-03] MEDS: EPOETIN ALFA-EPBX 4,000 UNIT/ML VIAL SQ SCH (11:04)
--- NOTE | 2020-10-03 11:09 | P.PN ---
Date of Service: 10/03/20 Vital Signs Temp Pulse Resp BP Pulse Ox 97.3 F 72 16 151/89 H 93 10/03/20 08:00 10/03/20 09:45 10/03/20 08:00 10/03/20 09:45 10/03/20 08:00 Medications Acetaminophen (Acetaminophen 500 Mg Tab) 500 mg PO Q4HP PRN PRN Reason: TEMP > 101' F Albuterol Sulfate (Albuterol 2.5 Mg/3 Ml Neb Samanta) 2.5 mg NEB [id number] PRN PRN Reason: SHORTNESS OF BREATH Last Admin: 09/30/20 08:30 Dose: 2.5 mg Documented by: Amlodipine Besylate (Amlodipine 10 Mg Tab) 10 mg PO DAILY [facility] Last Admin: 10/03/20 08:14 Dose: 10 mg Documented by: Apixaban (Apixaban 2.5 Mg Tablet) 2.5 mg PO BID [facility] Last Admin: 10/03/20 08:14 Dose: 2.5 mg Documented by: Ascorbic Acid (Ascorbic Acid 500 Mg Tablet) 500 mg PO BEDTIME [facility] Last Admin: 10/02/20 21:15 Dose: 500 mg Documented by: Atorvastatin Calcium (Atorvastatin 10 Mg Tab) 10 mg PO BEDTIME [facility] Last Admin: 10/02/20 21:14 Dose: 10 mg Documented by: Budesonide (Budesonide 0.25 Mg/2 Ml Neb) 0.25 mg NEB BIDRESP [facility] Last Admin: 10/02/20 19:55 Dose: 0.25 mg Documented by: Bumetanide (Bumetanide 1 Mg Tablet) 2 mg PO DAILY [facility] Last Admin: 10/03/20 09:45 Dose: 2 mg Documented by: Calcitriol (Calcitrol 0.25 Mcg Cap) 0.5 mcg PO DAILY [facility] Last Admin: 10/03/20 08:12 Dose: 0.5 mcg Documented by: Calcium Acetate (Ca Acetate 667 Mg Cap) 1,334 mg PO TIDWM [facility] Last Admin: 10/03/20 08:13 Dose: 1,334 mg Documented by: Cholecalciferol (Vitamin D 5,000 Unit Cap) 5,000 unit PO DAILY [facility] Last Admin: 10/03/20 08:12 Dose: 5,000 unit Documented by: Dextrose (D50w 25 Gm/50 Ml Vial) 12.5 gm IV PRN PRN; Protocol PRN Reason: HYPOGLYCEMIA Docusate Sodium (Docusate Na 100 Mg Cap) 100 mg PO BID [facility] Last Admin: 10/03/20 08:13 Dose: Not Given Documented by: Doxazosin Mesylate (Doxazosin 2 Mg Tab) 2 mg PO BEDTIME [facility] Last Admin: 10/02/20 21:13 Dose: 2 mg Documented by: Furosemide (Furosemide 40 Mg Tablet) 40 mg PO BIDL [facility] Last Admin: 10/03/20 08:14 Dose: 40 mg Documented by: Glimepiride (Glimepiride 2 Mg Tablet) 4 mg PO ACB [facility] Last Admin: 10/03/20 08:13 Dose: 4 mg Documented by: Glucagon (Glucagon 1 Mg/Vial) 1 mg IM 1X PRN; Protocol PRN Reason: HYPOGLYCEMIA Home Med (Linagliptin [Tradjenta]) 5 mg PO DAILY [facility] Last Admin: 10/03/20 08:15 Dose: Not Given Documented by: Hydralazine HCl (Hydralazine Hcl 20 Mg/Ml Vial) 10 mg IV Q6HP PRN PRN Reason: Titrate to SBP (MUST DEFINE) Last Admin: 10/01/20 00:31 Dose: 10 mg Documented by: Albumin Human (Albumin 25%) 50 mls @ 100 mls/hr IV EVERY HD [facility] Insulin Glargine (Insulin Glargine 100 Units/Ml) 30 units SQ BID [facility] Last Admin: 10/03/20 08:15 Dose: Not Given Documented by: Insulin Human Regular (Insulin -Regular Human 50 Unit/0.5 Ml Ml) 0 unit SQ ACHS [facility]; Protocol Last Admin: 10/03/20 07:30 Dose: Not Given Documented by: Ipratropium [place] (Ipratropium Brom 0.5mg/2.5ml) 0.5 mg NEB [id number] PRN PRN Reason: SHORTNESS OF BREATH Last Admin: 10/02/20 08:40 Dose: 0.5 mg Documented by: Mannitol (Mannitol 25% 12.5 Gm/50 Ml Vial) 12.5 gm IV EVERY HD PRN PRN Reason: Titrate to SBP (MUST DEFINE) Melatonin (Melatonin 5 Mg Tablet) 5 mg PO BEDTIME [facility] Last Admin: 10/02/20 21:00 Dose: Not Given Documented by: Methylprednisolone Sodium Succinate (Methylprednisolone 40 Mg Inj) 40 mg IV Q12H [facility] Last Admin: 10/03/20 05:16 Dose: 40 mg Documented by: Metoprolol Tartrate (Metoprolol Tar 50 Mg Tab) 100 mg PO BID [facility] Last Admin: 10/03/20 08:12 Dose: 100 mg Documented by: Ondansetron HCl (Ondansetron 4 Mg/2 Ml Vial) 4 mg IV Q6HP PRN PRN Reason: NAUSEA / VOMITING Sodium Chloride (Flush Normal Saline 10 Ml) 10 ml IV BID [facility] Last Admin: 10/03/20 08:15 Dose: 10 ml Documented by: Thiamine HCl (Thiamine Hcl 100 Mg Tablet) 100 mg PO BID [facility] Last Admin: 10/03/20 08:14 Dose: 100 mg Documented by: Vitamin B Complex/Vit C/Folic Acid (Multivitamins,Therapeut 1 Tab) 1 tab PO DAILY [facility] Last Admin: 10/03/20 08:13 Dose: 1 tab Documented by: Zinc Sulfate (Zinc Sulfate 220 Mg Cap) 220 mg PO DAILY [facility] Last Admin: 10/03/20 08:14 Dose: 220 mg Documented by: Microbiology Results 09/06/20 00:48 Blood - Blood Aerobic Blood Culture - Final No growth in 5 days. 09/06/20 00:48 Blood - Blood Anaerobic Blood Culture - Final No growth in 5 days. Assessment/ Plan: Nephrology Feeling better Persistent dyspnea and hypoxia slowly improving. No acute events overnight. Vitals, medications, blood work and imaging reviewed in the chart. General: In no apparent distress, Oriented x3, Cooperative HEENT: Atraumatic Neck: Supple Respiratory: Diminished Cardiovascular: Regular rate/rhythm, Edema Gastrointestinal: Soft and benign, Non-distended Musculoskeletal: No clubbing, No contractures Integumentary: No rashes, No cyanosis Neurological: Normal speech Laboratory Data (last 24 hrs) 09/06/20 09:09: PT 11.5, INR 1.00, APTT 33.8 09/06/20 09:09: Sodium 131 L, Potassium 4.6, BUN 66 H, Creatinine 12.20 H*, Glucose 80, Total Bilirubin 0.5, AST 120 H, ALT 51, Alkaline Phosphatase 128 H 09/06/20 00:48: WBC 5.00, Hgb 10.4 L, Hct 30.7 L, Plt Count 123 L Imagings Data: EXAM DESCRIPTION: RADChest Single View09/06/2020 9:47 am CLINICAL HISTORY: Shortness of breath COMPARISON: 2019 FINDINGS: Moderate bilateral pulmonary opacities. The heart is mildly enlarged IMPRESSION: Moderate bilateral pulmonary opacities could represent pneumonia or pulmonary edema Conclusions/Impression: A/P: Continue the current POC and Medications other than the changes listed. AM Labs PRN. Recommend daily weight. Please see the orders for complete details. ESRD TTS -Acute HD TIW -Arrange for an extra HD today Hyponatremia Hyperkalemia Acidosis -HD TIW HTN with CKD/ CHF -Continue Amlodipine -Continue Metoprolol -Continue Doxazosin Diastolic CHF -HD TIW -Continue Metoprolol -Continue furosemide DM II with CKD and Polyneuropathy -Continue Lantus Moderate malnutrition -Encourage nutrition -Continue Promod -Give IV Albumin with HD Anemia in CKD -Continue Retacrit DANITA/ Secondary HyperPTH -Continue Vitamin D3 Rhabdomyolysis COVID PNA with hypoxia -Wean Solumedrol as tolerated -Wean Oxygen supplementation as tolerated -Continue inh budesonide Discharge to home once Oxygen requirements improve. Case reviewed with Dr. Morgan.
--- NOTE | 2020-10-03 15:17 | P.PN ---
Subjective Date of Service: 10/03/20 Primary Care Provider: Dr. Davis; Nephrology-Dr. Garibay Chief Complaint: Leach virus pneumonia Subjective: Improving, Doing well Physical Examination - Vital Signs Temperature: 96.9 F Blood Pressure: 167/81 Pulse: 62 Respirations: 16 Pulse Ox (%): 93 - Studies Medications List Reviewed: Yes Assessment & Plan Discharge Plan: Home Plan to discharge in: 24 Hours Physician Review Additional Text: Physical exam: Patient obese , alert, cooperative. Currently on 4 L per nasal cannula. Improving saturations with ambulation. Heart: Regular rate Lungs: wean down to 4 L per nasal cannula. Good air movement bilateral Abdomen: Soft Extremities: Good range of motion. No focal deficits. Impression: Fever, dyspnea secondary to acute respiratory failure with hypoxia related to bilateral COVID pneumonia ESRD on hemodialysis DM Type 2 with hyperglycemia HTN Anemia of chronic disease Hyperlipidemia Thrombocytopenia likely related to COVID Plan: Fever, dyspnea secondary to acute respiratory failure with hypoxia related to bilateral COVID pneumonia: Patient overall improved. Will consider discharge after dialysis today if oxygen saturations adequate on 4 L. If not patient will receive dialysis again tomorrow then we would reassess.. Case discussed in detail with nephrology. We will continue to reassess. Likely discharge home later today or tomorrow. ESRD on hemodialysis: Continue with nephrology recommendation. Hemodialysis in am - Continue with dialysis every Saturday, and Saturday. DM Type 2 with hyperglycemia: A1c elevated at 8.6. Blood sugars better controlled. Continue Lantus. Sliding scale in place. HTN: Blood pressure controlled. Continue with current medications. Anemia of chronic disease: Will monitor and adjust appropriately. Hyperlipidemia: Home medication restarted Thrombocytopenia likely related to COVID: Improvement noted. Will monitor closely. Time Spent Managing Pts Care (In Minutes): 55
[2020-10-03] MEDS ORDERED: ALBUMIN HUMAN 25% 50 ML IV SCH (16:00)
[2020-10-03] MEDS: DOXAZOSIN 2 MG TAB PO SCH (22:00)
[2020-10-03] MEDS: ASCORBIC ACID 500 MG TABLET PO SCH (22:00)
[2020-10-03] MEDS: ATORVASTATIN 10 MG TAB PO SCH (22:00)
[2020-10-03] MEDS: MELATONIN 5 MG TABLET PO SCH (22:02)
[2020-10-04] MEDS: METHYLPREDNISOLONE 40 MG INJ IV SCH (05:39)
[2020-10-04] MEDS: GLIMEPIRIDE 2 MG TABLET PO SCH (07:30)
[2020-10-04] MEDS: INSULIN -REGULAR HUMAN 50 UNIT/0.5 ML ML SQ SCH ×4 (07:30→20:32)
[2020-10-04] MEDS: BUDESONIDE 0.25 MG/2 ML NEB NEB SCH ×2 (07:50→20:00)
[2020-10-04] MEDS: METOPROLOL TAR 50 MG TAB PO SCH ×2 (08:59→20:26)
[2020-10-04] MEDS: CALCIUM ACETATE 667 MG TAB PO SCH ×3 (08:59→17:10)
--- NOTE | 2020-10-04 08:59 | P.PN ---
Subjective Date of Service: 10/04/20 Primary Care Provider: Dr. Davis; Nephrology-Dr. Garibay Chief Complaint: Leach virus pneumonia Subjective: Improving, Doing well Physical Examination - Vital Signs Temperature: 97.1 F Blood Pressure: 130/71 Pulse: 67 Respirations: 18 Pulse Ox (%): 93 - Studies Medications List Reviewed: Yes Assessment & Plan Discharge Plan: Home Plan to discharge in: 24 Hours Physician Review Additional Text: Physical exam: Patient obese , alert, cooperative. Currently on 4 L per nasal cannula. Improving saturations with ambulation. Heart: Regular rate Lungs: wean down to 4 L per nasal cannula. Good air movement bilateral Abdomen: Soft Extremities: Good range of motion. No focal deficits. Blood sugar was low this morning. D50 given. Impression: Fever, dyspnea secondary to acute respiratory failure with hypoxia related to bilateral COVID pneumonia ESRD on hemodialysis DM Type 2 with hypoglycemia HTN Anemia of chronic disease Hyperlipidemia Thrombocytopenia likely related to COVID Plan: Fever, dyspnea secondary to acute respiratory failure with hypoxia related to bilateral COVID pneumonia: Patient has done well. Currently on 4 L per nasal cannula. Patient to have dialysis again today. Will trial again to see how patient will do on 4 L after dialysis. If able to ambulate appropriately without significant desaturations or shortness of breath then will consider discharge later today. Patient overall improved. Blood sugar was low this morning. Will discontinue Tradjenta and glimepiride. We will also change Lantus to 10 units at bedtime. Continue to monitor closely. Possible discharge later today. ESRD on hemodialysis: Continue with nephrology recommendation. Dialysis is planned for today. - Continue with dialysis every Saturday, and Saturday. DM Type 2 with hypoglycemia: A1c elevated at 8.6. Patient has been having some low blood sugar this morning. Will discontinue glimepiride and Tradjenta. Will decrease Lantus from 30 units subcu twice daily to 10 units at night. D50 to be given. HTN: Blood pressure controlled. Continue with current medications. Anemia of chronic disease: Will monitor and adjust appropriately. Hyperlipidemia: Home medication restarted Thrombocytopenia likely related to COVID: Improvement noted. Will monitor closely. Time Spent Managing Pts Care (In Minutes): 55
[2020-10-04] MEDS: ZINC SULFATE 220 MG CAP PO SCH (09:00)
[2020-10-04] MEDS: FUROSEMIDE 40 MG TABLET PO SCH ×2 (09:00→17:08)
[2020-10-04] MEDS: CALCITROL 0.25 MCG CAP PO SCH (09:00)
[2020-10-04] MEDS: VITAMIN D 5,000 UNIT CAP PO SCH (09:00)
[2020-10-04] MEDS: DOCUSATE NA 100 MG CAP PO SCH ×2 (09:00→20:34)
[2020-10-04] MEDS: THIAMINE HCL 100 MG TABLET PO SCH ×2 (09:01→20:21)
[2020-10-04] MEDS: MULTIVITAMINS,THERAPEUT 1 TAB PO SCH (09:01)
[2020-10-04] MEDS: APIXABAN 2.5 MG TABLET PO SCH ×2 (09:01→20:21)
[2020-10-04] MEDS: AMLODIPINE 10 MG TAB PO SCH (09:01)
[2020-10-04] MEDS: predniSONE 20 MG TAB PO SCH ×2 (09:06→20:22)
[2020-10-04] MEDS: BUMETANIDE 1 MG TABLET PO SCH (14:22)
--- NOTE | 2020-10-04 14:47 | P.DS ---
Admission Date: 09/06/20 Discharge Date: 10/04/20 Primary Care Provider: Dr. Davis; Nephrology-Dr. Garibay Disposition: ROUTINE DISCHARGE Discharge Condition: GOOD Reason for Admission: Leach virus pneumonia Consultations: Pulmonary-Dr. Cervantes Nephrology-Dr. Garibay Procedures: COVID: Positive Medical Problem List: Fever, dyspnea secondary to acute respiratory failure with hypoxia related to bilateral COVID pneumonia ESRD on hemodialysis DM Type 2 with hypoglycemia HTN Anemia of chronic disease Hyperlipidemia Thrombocytopenia likely related to COVID Brief History of Present Illness: 44-year-old male with history of diabetes mellitus type 2, hypertension, and end-stage renal disease on hemodialysis. Over the past several days patient has been reporting some increasing cough, congestion, fever and shortness of breath. He reports that a family member was positive for COVID. Symptoms have not improved. He was to have dialysis today but due to his fever and room-air saturations being low he was sent to the ER for further evaluation. In the ER patient was evaluated. Patient required high-flow oxygen in the emergency room. White count 5.0, hemoglobin 10.4. Platelet count 123. Sodium 131, potassium 4.6. BS 66, creatinine 12.12 with a GFR 5. Glucose 80. Lactic acid 1.2. Troponin 0.14. Pro calcitonin 1.57 with the CRP of 138 , ferritin above 5000. Chest x-ray shows evidence of viral pneumonia. Patient was positive for COVID. Patient was admitted for treatment When I saw the patient in the ER, patient appeared stable on high-flow. Hospital Course: Patient presented with fever, dyspnea secondary to acute respiratory failure with hypoxia related to bilateral COVID-19 pneumonia. His stay was prolonged but the patient slowly improved. Patient received IV remdesivir, IV steroids and other medications. Patient required treatments including BiPAP, high flow and eventually able to wean to nasal cannula. Patient was seen and evaluated by pulmonology. At discharge patient has remained stable. At discharge he will continue with home oxygen to maintain sats above 93%. Currently on 3 L to 4 L per nasal cannula. At discharge patient will continue with prednisone 20 mg 1 pill twice daily for 7 days then 1 pill once daily for 7 days. The patient will continue with vitamin C 500 mg daily, vitamin D once daily, melatonin 5 mg daily, thiamine 100 mg 1 pill twice daily and zinc 220 mg daily. At discharge the patient will also continue with Eliquis 2.5 mg 1 pill twice daily for DVT prophylaxis. At discharge the patient will continue with Pulmicort 1 puff twice daily. Recommendation is for the patient to continue with incentive spirometer, proning. Recommend follow-up with pulmonology in 1 to follow-up his hospitalization and continue his care. Further adjustment in medication can be done by pulmonology. Patient with end-stage renal disease on hemodialysis. Patient continued with dialysis every Saturday, and Saturday during the course of his stay. During the course of his stay patient required diuretic treatment due to his Covid infection. At discharge the patient will continue with Bumex 2 mg daily and Lasix 40 mg 1 pill twice daily. She will continue with 1500 cc/day fluid restriction and low-salt diet. Recommend to monitor his weight daily. Further adjustment in medication can be done by nephrology. Recommend follow-up with nephrology within 1 week. Patient will continue with his dialysis every Saturday, and Saturday. At discharge the patient will continue with Calcitrol 0.5 mcg daily, PhosLo 1334 mg 1 pill 3 times a day. Patient with diabetes mellitus type 2 with hyperglycemia. Hemoglobin A1c 8.6. During the course of his stay patient received insulin therapy. This was eventually weaned off. Patient normally takes Amaryl and Tradjenta. At discharge patient will continue with Tradjenta 5 mg daily. Recommend to monitor blood sugar at least twice daily. Recommend to maintain blood sugar less than 140 fasting and less than 2 and after meals. If blood sugars start to increase then Amaryl may need to be restarted. Recommend follow-up with PCP to further monitor and address. Patient with hypertension. Medications have been adjusted during the course of his stay. At discharge patient will continue with Norvasc 10 mg daily, metoprolol 100 mg 1 pill twice daily, and Cardura 2 mg 1 pill daily. Recommend to maintain blood pressure less than 130/80. Further adjustment can be done by his PCP. Patient with hyperlipidemia. At discharge patient will continue with Lipitor 10 mg daily. Patient with anemia chronic disease. Patient also had thrombocytopenia related to Covid. This has improved. Patient overall stable. Recommend follow-up with nephrology to further monitor and adjust medication. Vital Signs/Physical Exam: Temp Pulse Resp BP Pulse Ox 96.8 F 56 20 143/82 H 92 10/04/20 12:00 10/04/20 14:22 10/04/20 12:00 10/04/20 14:22 10/04/20 12:00 General: Alert, In no apparent distress, Oriented x3, Cooperative HEENT: Atraumatic Neck: Supple Respiratory: Clear to auscultation bilaterally Cardiovascular: Normal pulses, Regular rate/rhythm Gastrointestinal: No guarding Neurological: Normal speech, Normal strength at 5/5 x4 extr, Normal tone, Normal affect Laboratory Data at Discharge: WBC 5.00 K/uL (4.3-10.9) 10/03/20 03:36 Hgb 8.4 g/dL (13.6-17.9) L 10/03/20 03:36 Hct 24.2 % (39.6-49.0) L 10/03/20 03:36 Plt Count 59 K/uL (152-406) L 10/03/20 03:36 PT 11.5 SECONDS (9.5-12.5) 09/06/20 09:09 INR 1.00 09/06/20 09:09 APTT 33.8 SECONDS (24.3-36.9) 09/06/20 09:09 Sodium 139 mmol/L (136-145) 10/03/20 03:36 Potassium 4.7 mmol/L (3.5-5.1) 10/03/20 03:36 BUN 81 mg/dL (7-18) H D 10/03/20 03:36 Creatinine 6.18 mg/dL (0.55-1.3) H* D 10/03/20 03:36 Glucose 118 mg/dL (74-106) H 10/03/20 03:36 Uric Acid 8.2 mg/dL (3.5-7.2) H 09/07/20 03:00 Phosphorus 9.5 mg/dL (2.5-4.9) H* 09/07/20 03:00 Magnesium 2.3 mg/dL (1.8-2.4) 10/03/20 03:36 Total Bilirubin 0.4 mg/dL (0.2-1.0) 09/20/20 03:23 AST 13 U/L (15-37) L 09/20/20 03:23 ALT 34 U/L (12-78) 09/20/20 03:23 Alkaline Phosphatase 99 U/L (45-117) 09/20/20 03:23 Troponin I 0.08 ng/mL (0.0-0.045) H 09/07/20 03:00 Triglycerides 123 mg/dL (<150) 09/07/20 03:00 Cholesterol 95 mg/dL (<200) 09/07/20 03:00 HDL Cholesterol 36 mg/dL (40-60) L 09/07/20 03:00 Cholesterol/HDL Ratio 2.64 09/07/20 03:00 Home Medications: Amlodipine [Norvasc*] 10 mg PO DAILY 11/24/19 Atorvastatin Calcium [Lipitor*] 10 mg PO DAILY 11/24/19 Furosemide 40 mg PO BID 11/24/19 Aspirin [Aspirin EC 81 MG] 81 mg PO DAILY 09/06/20 Cholecalciferol (Vitamin D3) [Vitamin D3] 5,000 units PO DAILY 09/06/20 Apixaban [Eliquis *] 2.5 mg PO BID #60 tablet 10/04/20 Ascorbic Acid [Vitamin C*] 500 mg PO BEDTIME #30 tablet 10/04/20 Budesonide [Pulmicort Flexhaler] 180 mcg IH BID #1 aer.pow.[email or web address] 10/04/20 Bumetanide [Bumex*] 2 mg PO DAILY #60 tab 10/04/20 Calcitrol [Rocaltrol*] 0.5 mcg PO DAILY #60 cap 10/04/20 Calcium Acetate [Phoslo*] 1,334 mg PO TIDWM #180 tab 10/04/20 Docusate [Colace Cap*] 100 mg PO BID #60 cap 10/04/20 Doxazosin [Cardura*] 2 mg PO BEDTIME #30 tab 10/04/20 Linagliptin [Tradjenta] 5 mg PO DAILY #30 tablet 10/04/20 Melatonin 5 mg PO BEDTIME #30 tablet 10/04/20 Metoprolol Tartrate [Lopressor] 100 mg PO BID #60 tablet 10/04/20 Thiamine HCl [Vitamin B-1*] 100 mg PO BID #60 tablet 10/04/20 Zinc Sulfate [Zinc Sulfate*] 220 mg PO DAILY #30 cap 10/04/20 predniSONE [Prednisone*] 20 mg PO SEECOM #21 tab 10/04/20 New Medications: Bumetanide [Bumex*] 2 mg PO DAILY #60 tab Doxazosin [Cardura*] 2 mg PO BEDTIME #30 tab Docusate [Colace Cap*] 100 mg PO BID #60 cap Apixaban [Eliquis *] 2.5 mg PO BID #60 tablet Metoprolol Tartrate [Lopressor] 100 mg PO BID #60 tablet Melatonin 5 mg PO BEDTIME #30 tablet Calcium Acetate [Phoslo*] 1,334 mg PO TIDWM #180 tab predniSONE [Prednisone*] 20 mg PO SEECOM #21 tab Budesonide [Pulmicort Flexhaler] 180 mcg IH BID #1 aer.pow.ba Calcitrol [Rocaltrol*] 0.5 mcg PO DAILY #60 cap Linagliptin [Tradjenta] 5 mg PO DAILY #30 tablet Thiamine HCl [Vitamin B-1*] 100 mg PO BID #60 tablet Ascorbic Acid [Vitamin C*] 500 mg PO BEDTIME #30 tablet Zinc Sulfate [Zinc Sulfate*] 220 mg PO DAILY #30 cap Physician Discharge Instructions: Patient presented with fever, dyspnea secondary to acute respiratory failure with hypoxia related to bilateral COVID-19 pneumonia. His stay was prolonged but the patient slowly improved. Patient received IV remdesivir, IV steroids and other medications. Patient required treatments including BiPAP, high flow and eventually able to wean to nasal cannula. Patient was seen and evaluated by pulmonology. At discharge patient has remained stable. At discharge he will continue with home oxygen to maintain sats above 93%. Currently on 3 L to 4 L per nasal cannula. At discharge patient will continue with prednisone 20 mg 1 pill twice daily for 7 days then 1 pill once daily for 7 days. The patient will continue with vitamin C 500 mg daily, vitamin D once daily, melatonin 5 mg daily, thiamine 100 mg 1 pill twice daily and zinc 220 mg daily. At discharge the patient will also continue with Eliquis 2.5 mg 1 pill twice daily for DVT prophylaxis. At discharge the patient will continue with Pulmicort 1 puff twice daily. Recommendation is for the patient to continue with incentive spirometer, proning. Recommend follow-up with pulmonology in 1 to follow-up his hospitalization and continue his care. Further adjustment in medication can be done by pulmonology. Patient with end-stage renal disease on hemodialysis. Patient continued with dialysis every Saturday, and Saturday during the course of his stay. During the course of his stay patient required diuretic treatment due to his Covid infection. At discharge the patient will continue with Bumex 2 mg daily and Lasix 40 mg 1 pill twice daily. She will continue with 1500 cc/day fluid restriction and low-salt diet. Recommend to monitor his weight daily. Further adjustment in medication can be done by nephrology. Recommend follow-up with nephrology within 1 week. Patient will continue with his dialysis every Saturday, and Saturday. At discharge the patient will continue with Calcitrol 0.5 mcg daily, PhosLo 1334 mg 1 pill 3 times a day. Patient with diabetes mellitus type 2 with hyperglycemia. Hemoglobin A1c 8.6. During the course of his stay patient received insulin therapy. This was eventually weaned off. Patient normally takes Amaryl and Tradjenta. At discharge patient will continue with Tradjenta 5 mg daily. Recommend to monitor blood sugar at least twice daily. Recommend to maintain blood sugar less than 140 fasting and less than 2 and after meals. If blood sugars start to increase then Amaryl may need to be restarted. Recommend follow-up with PCP to further monitor and address. Patient with hypertension. Medications have been adjusted during the course of his stay. At discharge patient will continue with Norvasc 10 mg daily, metoprolol 100 mg 1 pill twice daily, and Cardura 2 mg 1 pill daily. Recommend to maintain blood pressure less than 130/80. Further adjustment can be done by his PCP. Patient with hyperlipidemia. At discharge patient will continue with Lipitor 10 mg daily. Patient with anemia chronic disease. Patient also had thrombocytopenia related to Covid. This has improved. Patient overall stable. Recommend follow-up with nephrology to further monitor and adjust medication. Diet: AHA Activity: Fall precautions Followup: Alex Garibay DO [ACTIVE - CAN ADMIT] - Todd Davis DO [ACTIVE - CAN ADMIT] - Time spent managing pt's care (in minutes): 55
[2020-10-04 17:27] VITALS: O2SAT 94
[2020-10-04] MEDS: ASCORBIC ACID 500 MG TABLET PO SCH (20:21)
[2020-10-04] MEDS: ATORVASTATIN 10 MG TAB PO SCH (20:21)
[2020-10-04 20:28] VITALS: BP 150/78; TEMP 97.5
[2020-10-04] MEDS: MELATONIN 5 MG TABLET PO SCH (20:34)
[2020-10-04] MEDS: DOXAZOSIN 2 MG TAB PO SCH (20:34)
[2020-10-04] MEDS ORDERED: INSULIN GLARGINE 100 UNITS/ML SQ SCH (21:00)
--- NOTE | 2020-10-05 20:25 | P.PN ---
Date of Service: 10/04/20 Vital Signs Temp Pulse Resp BP Pulse Ox 97.5 F 88 18 150/78 H 94 10/04/20 20:00 10/04/20 20:34 10/04/20 20:00 10/04/20 20:34 10/04/20 20:00 Microbiology Results 09/06/20 00:48 Blood - Blood Aerobic Blood Culture - Final No growth in 5 days. 09/06/20 00:48 Blood - Blood Anaerobic Blood Culture - Final No growth in 5 days. Assessment/ Plan: Nephrology Feeling better Persistent dyspnea and hypoxia slowly improving. No acute events overnight. Vitals, medications, blood work and imaging reviewed in the chart. General: In no apparent distress, Oriented x3, Cooperative HEENT: Atraumatic Neck: Supple Respiratory: Diminished Cardiovascular: Regular rate/rhythm, Edema Gastrointestinal: Soft and benign, Non-distended Musculoskeletal: No clubbing, No contractures Integumentary: No rashes, No cyanosis Neurological: Normal speech Laboratory Data (last 24 hrs) 09/06/20 09:09: PT 11.5, INR 1.00, APTT 33.8 09/06/20 09:09: Sodium 131 L, Potassium 4.6, BUN 66 H, Creatinine 12.20 H*, Glucose 80, Total Bilirubin 0.5, AST 120 H, ALT 51, Alkaline Phosphatase 128 H 09/06/20 00:48: WBC 5.00, Hgb 10.4 L, Hct 30.7 L, Plt Count 123 L Imagings Data: EXAM DESCRIPTION: Tejal Single View09/06/2020 9:47 am CLINICAL HISTORY: Shortness of breath COMPARISON: 2019 FINDINGS: Moderate bilateral pulmonary opacities. The heart is mildly enlarged IMPRESSION: Moderate bilateral pulmonary opacities could represent pneumonia or pulmonary edema Conclusions/Impression: A/P: Continue the current POC and Medications other than the changes listed. AM Labs PRN. Recommend daily weight. Please see the orders for complete details. ESRD TTS -Acute HD TIW Hyponatremia Hyperkalemia Acidosis -HD TIW HTN with CKD/ CHF -Continue Amlodipine -Continue Metoprolol -Continue Doxazosin Diastolic CHF -HD TIW -Continue Metoprolol -Continue furosemide DM II with CKD and Polyneuropathy -Continue Lantus Moderate malnutrition -Encourage nutrition -Continue Promod -Give IV Albumin with HD Anemia in CKD -Continue Retacrit DANITA/ Secondary HyperPTH -Continue Vitamin D3 Rhabdomyolysis COVID PNA with hypoxia -Wean Solumedrol as tolerated -Wean Oxygen supplementation as tolerated -Continue inh budesonide Discharge to home once Oxygen requirements improve. Case reviewed with Dr. Morgan.
--- NOTE | 2020-10-19 19:23 | P.PN ---
Date of Service: 09/14/20 Subjective Patient doing better. Clinical symptoms slowly improving. Continue with hemodialysis per nephrology. Continue with IV steroids and continue with IV diuretics. Review of Systems 10-point ROS is otherwise unremarkable Physical Examination - Vital Signs Reviewed - Physical Exam General: Alert, In no apparent distress, Oriented x3 Respiratory: Basilar crackles Cardiovascular: Regular rate/rhythm, Normal S1 S2, No murmurs Gastrointestinal: Normal bowel sounds, Soft and benign, Non-distended, No tenderness Musculoskeletal: No clubbing, No swelling, No tenderness Neurological: Sensation intact, Cranial nerves 3-12 intact Assessment & Plan - Problems (Diagnosis) (1) Pneumonia due to COVID-19 virus Current Visit: Yes Status: Acute (2) ESRD (end stage renal disease) Current Visit: No Status: Acute (3) History of diabetes mellitus, type II Current Visit: No Status: Chronic (4) Hypertension Current Visit: No Status: Chronic Qualifiers: Hypertension type: essential hypertension Qualified Code(s): I10 - Essential (primary) hypertension - Plan No change in current plan of care. 1. Continue with IV steroids 2. Continue weaning down FiO2. 3. Arrange for home oxygen 4. Pulmonary consultation appreciated 5. Continue with albuterol inhaler therapy; 6. Monitor inflammatory markers 7. Hemodialysis per Nephrology 8. GI and DVT prophylaxis
== END 2020-10-04 21:45 | disposition home or self-care (01) | DRG 177 ==
LOC: ER 08:54 → 4TH 13:47
PROVIDERS: ADMIT Family Medicine; ATTEND Family Medicine
PROC: 5A09557 Assistance with Respiratory Ventilation, Greater than 96 Consecutive Hours, Continuous Positive Airway Pressure (ICD-10-PCS; principal; 2020-09-06)
PROC: 5A1D70Z Performance of Urinary Filtration, Intermittent, Less than 6 Hours Per Day (ICD-10-PCS; 2020-09-07)
PROC: XW033E5 Introduction of Remdesivir Anti-infective into Peripheral Vein, Percutaneous Approach, New Technology Group 5 (ICD-10-PCS; 2020-09-07)
DX: U07.1 COVID-19 (principal); I50.33 Acute on chronic diastolic (congestive) heart failure; J96.01 Acute respiratory failure with hypoxia; J12.82 Pneumonia due to coronavirus disease 2019; N18.6 End stage renal disease; N17.9 Acute kidney failure, unspecified; I13.2 Hypertensive heart and chronic kidney disease with heart failure and with stage 5 chronic kidney disease, or end stage renal disease; E87.1 Hypo-osmolality and hyponatremia; E87.2 Acidosis; N25.81 Secondary hyperparathyroidism of renal origin; M62.82 Rhabdomyolysis; E44.0 Moderate protein-calorie malnutrition; E11.22 Type 2 diabetes mellitus with diabetic chronic kidney disease; E11.649 Type 2 diabetes mellitus with hypoglycemia without coma; E11.65 Type 2 diabetes mellitus with hyperglycemia; E11.42 Type 2 diabetes mellitus with diabetic polyneuropathy; Z79.84 Long term (current) use of oral hypoglycemic drugs; Z79.82 Long term (current) use of aspirin; Z68.35 Body mass index [BMI] 35.0-35.9, adult; Z99.2 Dependence on renal dialysis; Z79.899 Other long term (current) drug therapy; Z87.891 Personal history of nicotine dependence; D63.8 Anemia in other chronic diseases classified elsewhere; D63.1 Anemia in chronic kidney disease; N25.0 Renal osteodystrophy; E78.5 Hyperlipidemia, unspecified; R45.1 Restlessness and agitation; D69.6 Thrombocytopenia, unspecified; E87.5 Hyperkalemia; Z79.01 Long term (current) use of anticoagulants; Z79.52 Long term (current) use of systemic steroids
CPT/HCPCS: 0240U; 36415; 71045; 80048; 80053; 80061; 80076; 81003; 81015; 82550; 82553; 82728; 82947; 83036; 83605; 83735; 84100; 84145; 84439; 84443; 84484; 84550; 85025; 85610; 85730; 86140; 87040; 87086; 87088; 90935; 94002; 94003; 94010; 94640; 94660; 94760; 96374; 97110; 97112; 97116; 97161; 97530; 99285; G0257; J0360; J0460; J1644; J1815; J1940; J2920; J2930; J7050; J7512; P9047; Q5106; U0003

== ENCOUNTER 2020-10-07 12:07 | Inpatient (IN) | payer OTHER ==
--- OUTSIDE RECORDS SUMMARY | 2020-10-07 12:11 | XMS REPORT | Continuity of Care Document ---
:1975 Author Organization [facility] t Address [address] [place] [address] Care Team Providers Name Role Phone SUSANNA Attending Clinician Unavailable SACHA Attending Clinician Unavailable Neil GOSS Attending Clinician SUSANNA Admitting Clinician Unavailable Problems This patient has no known problems. Allergies, Adverse Reactions, Alerts This patient has no known allergies or adverse reactions. Medications Ordered Filled Start Stop Current Ordering Indication Dosage Frequency Signature Comments Components Source Medication Medication Date Date Medication? Clinician (SIG) Name Name Pen [place] Pen [place] Rito 2018- Yes Todd [address] [facility] 09/20" 3" 0-02 [facility] needle [facility] - 00:[facility]: with [facility] 00 Victoza l Outpati ent Clinics Victoza Victoza Yes Todd inject 0.[address] Davis mg/day x 1 [facility] - week then Memoria 1.2 l mg/day. Outpati max 1.8 ent mg/day Clinics Calcium Calcium Yes Todd TAKE BY [facility] Acetate Acetate Davis MOUTH 1 [facility] - (Phos (Phos CAPSULE 3 Memoria Binder) Binder) TIMES A l DAY WITH Outpati FOOD AND 1 ent CAPSUE 2 Clinics TIMES WITH SNACKS Claritin Claritin Yes Todd [address] [facility] Doxazosin Doxazosin Yes Todd take [address] Mesylate Mesylate Davis tablet by L ukes - mouth Memoria twice a l day Outpati ent Clinics Furosemide Furosemide Yes Todd take [address] [facility] Davis tablet by Lukes - mouth Memoria twice a l day Psychiatric ent Clinics Toujeo Chuckugeovanio Yes Todd INJECT SUB [facility] SoloStar SoloStar Davis 38 UNITS Susanna kes - DAILY [facility] Glimepiride Glimepiride Yes Todd take [address] [facility] Davsi tablet by Lukes - mouth Memoria every day l Psychiatric ent [facility] Atorvastati Atorvastati Yes Todd TAKE [address] [facility] n Calcium n Calcium Davis TABLET BY [facility] - MOUTH Memoria EVERY DAY l Psychiatric ent [facility] Vitamin D-3 Vitamin D-3 Yes Todd as [facility] Davis directed [facility] Amlodipine Amlodipine Yes Todd take [address] [facility] Besylate Besylate Davis tablet by L ukes - mouth Memoria every day l Psychiatric ent [facility] Tradjenta Tradjenta Yes Todd TAKE [address] Davis TABLET BY [facility] - MOUTH Memoria EVERY DAY l ONCE A DAY [place] [id number] ent Clinics Metoprolol Metoprolol Yes Todd take [address] [facility] Tartrate Tartrate Davis tablet by L ukes - mouth Memoria twice a l day Psychiatric ent [facility] Atorvastati Atorvastati Yes Todd take [address] [facility] n Calcium n Calcium Davis tablet by [facility] - mouth Memoria every day l Psychiatric ent [facility] Procedures This patient has no known procedures. Encounters Start End Encounter Admission Attending Care Care Encounter Source Date/Time Date/Time Type Type Clinicians Facility Department ID 2020-06-16 2020-06-16 Outpatient [facility] [id number] [facility]00 [facility] 2020-05-24 2020-05-24 Outpatient DELVIN MULLINS [facility] [id number] [place] 00:00:00 00:00:[address] 2020-04-26 2020-04-26 Outpatient DELVIN MULLINS [facility] [id number] [place] 00:00:00 00:00:[address] 2020-04-14 2020-04-14 Outpatient DELVIN MULLINS [facility] [id number] [place] 00:00:00 00:00:[address] 2020-04-14 2020-04-14 Outpatient [facility] [id number] [place] 00:00:00 00:00:[address] 2020-03-17 2020-03-17 [facility] [id number] 14:10:00 14:10:00 t [employer] Outpati ent Clinics 2020-03-15 2020-03-15 Outpatient DELVIN MULLINS [facility] [id number] [place] 00:00:00 00:00:[address] 2020-03-10 2020-03-10 Outpatient DELVIN MULLINS [facility] [id number] [place] 00:00:00 00:00:[address] 2020-03-10 2020-03-10 Outpatient DELVIN MULLINS [facility] [id number] [place] 00:00:00 00:00:[address] 2020-03-08 2020-03-08 Outpatient SACHA [facility] [id number] [place] 00:00:00 00:00:00 GUILHERME [address] 2020-03-08 2020-03-08 Outpatient SACHA [facility] [id number] [place] 00:00:00 00:00:00 GUILHERME [address] 2020-02-22 2020-02-22 [facility] [id number] 16:58:00 16:58:00 t [employer] [facility] Outpati ent [facility] 2020-02-09 2020-02-09 Office [facility] [id number] 15:18:54 16:25:44 Visit Myriam Addison [id number] [place] [id number] [id number] [address] 2020-01-20 2020-01-20 [facility] [id number] 15:47:00 15:47:00 t [facility] Outpati ent Clinics 2019-12-16 2019-12-16 [facility] [id number] 15:00:00 15:00:00 t [employer] [facility] Medicine Outpati ent Clinics 2019-12-16 2019-12-16 [facility] [id number] 14:45:00 14:45:[address] Luke s - Drive [facility] Medicine l Medicine Outpati ent Clinics 2019-11-26 2019-11-26 [facility] [id number] 13:57:00 13:57:00 [facility] s - Road [facility] l Medicine Outpati ent Clinics 2019-09-15 2019-09-15 [facility] [id number] 15:15:00 15:15:00 t [address] Luke s - Drive [facility] l Medicine Outpati ent Clinics 2019-09-14 2019-09-14 [facility] [id number] 07:56:00 07:56:00 t [address] Luke s - Drive [facility] Medicine Outpati ent Clinics 2019-09-10 2019-09-10 [facility] [id number] 10:00:00 10:00:00 t [facility] and [facility] - and [facility] ent Clinics 2019-09-07 2019-09-07 [facility] [id number] 09:39:00 09:39:[address] Luke s - Drive [facility] Medicine Outpati ent Clinics 2019-08-13 2019-08-13 [facility] [id number] 14:49:00 14:49:[address] Luke s - Drive [facility] Medicine Outpati ent Clinics 2019-06-25 2019-06-25 [facility] [id number] 11:04:00 11:04:[address] Luke s - Drive [facility] Medicine Outpati ent Clinics 2019-06-15 2019-06-15 [facility] [id number] 10:00:00 10:00:00 t [address] Luke s - Drive [facility] Medicine Outpati ent Clinics 2019-06-10 2019-06-10 [facility] [id number] 08:33:00 08:33:00 t [address] [place] Luke s - Drive [facility] Outpati ent Clinics 2019-06-08 2019-06-08 [facility] [id number] 13:51:00 13:51:00 t [facility] s [facility] Outpati ent Clinics 2019-04-08 2019-04-08 [facility] [id number] 16:33:00 16:33:00 t [employer] [facility] Outpati ent Clinics 2019-03-13 2019-03-13 [facility] [id number] 08:45:00 08:45:00 t [employer] [facility] Results This patient has no known results.
[2020-10-07] MEDS ORDERED: METHYLPREDNISOLONE 125 MG INJ ONE (13:20)
[2020-10-07 13:33] LABS: Absolute Lymphocytes (CBC) 0.3 K/uL (0.7-4.9); Basophils % 0.7 % (0-1.3); Hematocrit 21.5 % (39.6-49.0); Lymphocytes % 6.9 % (15.3-44.8); MPV 8.6 fL (7.6-11.3)
[2020-10-07 13:35] LABS: Protime INR 0.95
[2020-10-07 13:44] LABS: Albumin 2.6 g/dL (3.4-5.0); Bilirubin Direct 0.3 mg/dL (0-0.2); Bilirubin Total 1.1 mg/dL (0.2-1.0); CKMB Creatine Kinase MB 4.6 ng/mL (0.3-3.6); Magnesium 2.2 mg/dL (1.8-2.4); Protein, Total 5.3 g/dL (6.4-8.2); Troponin (Emerg Dept Use Only) 0.26 ng/mL (0.0-0.045)
--- NOTE | 2020-10-07 14:12 | EDPHYS ---
Physician Documentation [facility] Name: Nikita Bartlett Age: 44 yrs Sex: Male : 1975 Arrival Date: 10/07/2020 Time: 12:10 Bed 7 Private MD: ED Physician Ani Davis HPI: 10/07 12:21 This 44 yrs old Male presents to ER via EMS with complaints of Shortness Of ma2 Breath. 12:21 The patient has shortness of breath at rest. Onset: The symptoms/episode began/occurred ma2 gradually, 1 day(s) ago. Associated signs and symptoms: Pertinent negatives: diaphoresis, fever, loss of consciousness. Severity of symptoms: At their worst the symptoms were moderate in the emergency department the symptoms are unchanged. The patient has experienced similar episodes in the past. hx of covid esrd was discharged form the hospital 2 days ago and had HD on that day. today he had low spo2 to 80s while on 3 L. he is on non rebreather and satting 100%. Historical: - Allergies: 12:16 No Known Allergies; jl7 - PMHx: 12:16 "Leaking heart valve"; Anemia; Diabetes - NIDDM; Dialysis; Enlarged Heart; jl7 Hypertension; osteomyolitis; - Immunization history:: Adult Immunizations unknown. - Social history:: Smoking status: Patient denies any tobacco usage or history of. Patient/guardian denies using alcohol, street drugs, The patient lives with family. - Family history:: not pertinent. ROS: 12:21 Constitutional: Negative for fever, chills, and weight loss. ma2 12:21 All other systems are negative. Exam: 12:21 Constitutional: This is a well developed, well nourished patient who is awake, alert, ma2 and in no acute distress. Head/Face: Normocephalic, atraumatic. Eyes: Pupils equal round and reactive to light, extra-ocular motions intact. Lids and lashes normal. Conjunctiva and sclera are non-icteric and not injected. Cornea within normal limits. Periorbital areas with no swelling, redness, or edema. ENT: Nares patent. No nasal discharge, no septal abnormalities noted. Tympanic membranes are normal and external auditory canals are clear. Oropharynx with no redness, swelling, or masses, exudates, or evidence of obstruction, uvula midline. Mucous membranes moist. Neck: Trachea midline, no thyromegaly or masses palpated, and no cervical lymphadenopathy. Supple, full range of motion without nuchal rigidity, or vertebral point tenderness. No Meningismus. Chest/axilla: Normal chest wall appearance and motion. Nontender with no deformity. No lesions are appreciated. Cardiovascular: Regular rate and rhythm with a normal S1 and S2. No gallops, murmurs, or rubs. Normal PMI, no JVD. No pulse deficits. Abdomen/GI: Soft, non-tender, with normal bowel sounds. No distension or tympany. No guarding or rebound. No evidence of tenderness throughout. Skin: Warm, dry with normal turgor. Normal color with no rashes, no lesions, and no evidence of cellulitis. MS/ Extremity: Pulses equal, no cyanosis. Neurovascular intact. Full, normal range of motion. Neuro: Awake and alert, GCS 15, oriented to person, place, time, and situation. Cranial nerves II-XII grossly intact. Motor strength 5/5 in all extremities. Sensory grossly intact. Cerebellar exam normal. Normal gait. 12:21 Respiratory: moderate respiratory distress is noted, Respirations: accessory muscle usage, is absent, Breath sounds: rales, that are moderate, Respiratory rate: 22 Vital Signs: 12:10 BP 118 / 91; Pulse 78; Resp 14 S; Temp 97.6(TE); Pulse Ox 84% on R/A; Weight 115.67 kg; jl7 Height 5 ft. 11 in. (180.34 cm); Pain 0/10; 13:22 BP 152 / 79; Pulse 77; Resp 17 S; Pulse Ox 100% on Non-rebreather mask; jl7 14:00 BP 154 / 84; Pulse 71; Resp 15; Pulse Ox 100% on Non-rebreather mask; ld1 15:13 BP 177 / 85; Pulse 82; Resp 16; Temp 97.8(O); Pulse Ox 100% on Non-rebreather mask; ld1 12:10 Body Mass Index 35.56 (115.67 kg, 180.34 cm) jl7 MDM: 12:10 Patient medically screened. ma2 12:21 Differential diagnosis: Anemia Anxiety Reaction asthma, CHF exacerbation, reactive ma2 airway disease, Sepsis. 14:09 Data reviewed: vital signs, nurses notes. Counseling: I had a detailed discussion with [facility] the patient and/or guardian regarding: the historical points, exam findings, and any diagnostic results supporting the discharge/admit diagnosis, the presence of at least one elevated blood pressure reading (>120/80) during this emergency department visit, the need for outpatient follow up. 10/07 12:21 Order name: Blood Culture Adult (2) [facility] 10/07 12:21 Order name: BMP [facility] 10/07 12:21 Order name: CBC with Diff [facility] 10/07 12:21 Order name: Ckmb [facility] 10/07 12:21 Order name: CPK [facility] 10/07 12:21 Order name: D-Dimer [facility] 10/07 12:21 Order name: Hepatic Function [facility] 10/07 12:21 Order name: Lipase [facility] 10/07 12:21 Order name: Magnesium [facility] 10/07 12:21 Order name: NT PRO-BNP [facility] 10/07 12:21 Order name: PT-INR; Complete Time: 13:56 [facility] 10/07 12:21 Order name: Ptt, Activated; Complete Time: 13:56 [facility] 10/07 12:21 Order name: Troponin (emerg Dept Use Only); Complete Time: 13:56 [facility] 10/07 12:21 Order name: Blood Culture [facility] 10/07 12:21 Order name: XRAY CXR (1 view) [facility] 10/07 12:21 Order name: Basic Metabolic Panel; Complete Time: 13:56 [facility] 10/07 12:21 Order name: CBC with Automated Diff [facility] 10/07 12:21 Order name: CKMB Creatine Kinase MB; Complete Time: 13:56 [facility] 10/07 12:22 Order name: Creatine Phosphokinase; Complete Time: 13:56 [facility] 10/07 12:22 Order name: D-Dimer; Complete Time: 13:56 [facility] 10/07 12:22 Order name: Liver (Hepatic) Function; Complete Time: 13:56 [facility] 10/07 12:22 Order name: Lipase; Complete Time: 13:56 [facility] 10/07 12:22 Order name: Magnesium; Complete Time: 13:56 [facility] 10/07 12:22 Order name: NT PRO-BNP; Complete Time: 13:56 [facility] 10/07 12:30 Order name: UA eb 10/07 12:30 Order name: Urinalysis [facility] 10/07 14:35 Order name: Manual Differential [facility] 10/07 16:44 Order name: Glucose, Ancillary Testing [facility] 10/07 12:21 Order name: EKG; Complete Time: 12:22 ky2 10/07 12:21 Order name: Cardiac monitoring; Complete Time: 14:37 ky2 10/07 12:21 Order name: EKG - Nurse/Tech; Complete Time: 14:37 ky2 10/07 12:21 Order name: IV Saline Lock; Complete Time: 13:20 ma2 10/07 12:21 Order name: Labs collected and sent; Complete Time: 13:20 ky2 10/07 12:21 Order name: O2 Per Protocol; Complete Time: 13:20 ky2 10/07 12:21 Order name: O2 Sat Monitoring; Complete Time: 13:20 ma2 Administered Medications: 13:10 Drug: SOLU-Medrol 60 mg Route: IVP; Site: right hand; jl7 15:47 Follow up: Response: No adverse reaction ld1 15:40 Drug: Lasix (furosemide) 20 mg Route: IVP; Site: right hand; ld1 15:47 Follow up: Response: No adverse reaction ld1 Disposition: 10/07/20 14:11 Hospitalization ordered by Kirean Morgan for Inpatient Admission. Preliminary diagnosis are Shortness of breath, Coronavirus infection, unspecified, End stage renal disease. - Bed requested for Telemetry/MedSurg (Inpatient). - Status is Inpatient Admission. jl7 - Condition is Stable. - Problem is new. - Symptoms are unchanged. Signatures: Dispatcher [employer] [facility] France More RN RN jl7 Ani Davis MD MD ma2 Ivon Duenas Lauren, RN RN ld1 Corrections: (The following items were deleted from the chart) 12:23 12:21 hx of covid esrd was discharged form the hospital 2 days ago and had HD on that ma2 day. today he had low spo2 to 80s while on 3 L. he is on non rebreather and satting 100 on RA. ky2 14:35 14:09 CBC Smear Scan ordered. [facility] 14:54 14:11 Hospitalization Ordered by Kieran Morgan DO for Inpatient Admission. Preliminary eb diagnosis is Shortness of breath; Coronavirus infection, unspecified; End stage renal disease. Bed requested for Telemetry/MedSurg (Inpatient). Status is Inpatient Admission. Condition is Stable. Problem is new. Symptoms are unchanged. ma2 16:48 14:54 10/07/2020 14:11 Hospitalization Ordered by Kieran Morgan DO for Inpatient jl7 Admission. Preliminary diagnosis is Shortness of breath; Coronavirus infection, unspecified; End stage renal disease. Bed requested for Telemetry/MedSurg (Inpatient). Status is Inpatient Admission. Condition is Stable. Problem is new. Symptoms are unchanged. eb
--- NOTE | 2020-10-07 14:12 | ER ---
Nurse's Notes [facility] Name: Nikita Bartlett Age: 44 yrs Sex: Male : 1975 Arrival Date: 10/07/2020 Time: 12:10 Bed 7 Private MD: Diagnosis: Shortness of breath;Coronavirus infection, unspecified;End stage renal disease Presentation: 10/07 12:10 Chief complaint: EMS states: Toned out for pulse ox reading of 60%; pt was d/c'd on jl7 Saturday from upstairs, hospitalized for about a month for COVID, d/c'd with home O2 pt reportes increasing O2 from 4 lpm to 6 lpm and O2 went up to 88%, EMS placed pt on NRB and pulse ox went to 98%. Coronavirus screen: Client denies travel out of the [place] in the last 14 days. shortness of breath, Client presents with at least one sign or symptom that may indicate coronavirus-19. Standard/surgical mask placed on the client. Provider contacted for isolation considerations. Ebola Screen: No symptoms or risks identified at this time. Initial Sepsis Screen: Does the patient meet any 2 criteria? No. Patient's initial sepsis screen is negative. Does the patient have a suspected source of infection? No. Patient's initial sepsis screen is negative. Risk Assessment: Do you want to hurt yourself or someone else? Patient reports no desire to harm self or others. Onset of symptoms was October 07, 2020. Care prior to arrival: Oxygen administered. via a non-rebreather mask. 12:10 Method Of Arrival: EMS: [facility] jl7 12:10 Acuity: OCTAVIO 2 jl7 Triage Assessment: 12:16 General: Appears in no apparent distress. uncomfortable, Behavior is calm, cooperative, jl7 appropriate for age. Pain: Denies pain. Neuro: Level of Consciousness is awake, alert, obeys commands, Oriented to person, place, time, situation. Cardiovascular: Patient's skin is warm and dry. Respiratory: Reports shortness of breath Airway is patent Respiratory effort is even, unlabored, Respiratory pattern is regular, symmetrical, Onset: The symptoms/episode began/occurred this morning, the patient has moderate shortness of breath. Derm: Skin is pink, warm \\T\\ dry. Historical: - Allergies: 12:16 No Known Allergies; jl7 - PMHx: 12:16 "Leaking heart valve"; Anemia; Diabetes - NIDDM; Dialysis; Enlarged Heart; jl7 Hypertension; osteomyolitis; - Immunization history:: Adult Immunizations unknown. - Social history:: Smoking status: Patient denies any tobacco usage or history of. Patient/guardian denies using alcohol, street drugs, The patient lives with family. - Family history:: not pertinent. Screenin:22 Abuse screen: Denies threats or abuse. Denies injuries from another. Nutritional jl7 screening: No deficits noted. Tuberculosis screening: No symptoms or risk factors identified. Fall Risk IV access (20 points). Total Tejada Fall Scale indicates No Risk (0-24 pts). Assessment: 12:10 Reassessment: ERD at bedside. jl7 Vital Signs: 12:10 BP 118 / 91; Pulse 78; Resp 14 S; Temp 97.6(TE); Pulse Ox 84% on R/A; Weight 115.67 kg; jl7 Height 5 ft. 11 in. (180.34 cm); Pain 0/10; 13:22 BP 152 / 79; Pulse 77; Resp 17 S; Pulse Ox 100% on Non-rebreather mask; jl7 14:00 BP 154 / 84; Pulse 71; Resp 15; Pulse Ox 100% on Non-rebreather mask; ld1 15:13 BP 177 / 85; Pulse 82; Resp 16; Temp 97.8(O); Pulse Ox 100% on Non-rebreather mask; ld1 12:10 Body Mass Index 35.56 (115.67 kg, 180.34 cm) jl7 ED Course: 12:10 Patient arrived in ED. jl7 12:10 Ani Davis MD is Attending Physician. ma2 12:16 Triage completed. jl7 12:16 Arm band placed on right wrist. jl7 12:20 Patient has correct armband on for positive identification. Placed in gown. Bed in low jl7 position. Call light in reach. Side rails up X 1. ekg monitor on. Pulse ox on. NIBP on. Warm blanket given. 12:58 France More RN is Primary Nurse. jl7 13:05 Initial lab(s) drawn, by me, sent to lab. Inserted saline lock: 20 gauge in right hand, jl7 using aseptic technique. Blood collected. 13:33 XRAY CXR (1 view) In Process Unspecified. EDME 14:11 Kieran Morgan DO is Hospitalizing Provider. ma2 16:00 No provider procedures requiring assistance completed. Patient admitted, IV remains in jl7 place. intact, No redness/swelling at site. Administered Medications: 13:10 Drug: SOLU-Medrol 60 mg Route: IVP; Site: right hand; jl7 15:47 Follow up: Response: No adverse reaction ld1 15:40 Drug: Lasix (furosemide) 20 mg Route: IVP; Site: right hand; ld1 15:47 Follow up: Response: No adverse reaction ld1 Outcome: 14:11 Decision to Hospitalize by Provider. ma2 16:00 Admitted to Tele accompanied by tech, via wheelchair, room 410, with chart, Report jl7 called to EMILIE Sparks 16:00 Condition: stable 16:00 Discharge instructions given to patient, Instructed on the need for admit, Demonstrated understanding of instructions. 16:48 Patient left the ED. jl7 Signatures: Dispatcher [employer] Mitzi Llamas 5 France More RN RN jl7 Ani Davis MD MD dc2 Glo Valles RN RN ld1 Corrections: (The following items were deleted from the chart) 15:47 15:13 BP 180 / 93; Pulse 78bpm; Resp 16bpm; Pulse Ox 100% Non-rebreather mask; Temp ld1 97.8F Oral; mh5
--- NOTE | 2020-10-07 14:13 | P.HP ---
Certification for Inpatient Patient admitted to: Inpatient With expected LOS: >2 Midnights Patient will require the following post-hospital care: None Practitioner: I am a practitioner with admitting privileges, knowledge of patient current condition, hospital course, and medical plan of care. Services: Services provided to patient in accordance with Admission requirements found in Title 42 Section 412.3 of the Code of Federal Regulations Patient History Date of Service: 10/07/20 Primary Care Provider: Dr. Davis; Nephrology-Dr. Garibay Reason for admission: SOB History of Present Illness: 44-year-old male with history of end-stage renal disease on hemodialysis, diabetes mellitus type 2, hypertension, anemia of chronic disease, hyperlipidemia who was recently hospitalized for bilateral Covid pneumonia. Patient was discharged this past Saturday. Patient had gotten dialysis in the hospital on Saturday and Saturday and was to discharge to continue dialysis every Saturday, and Saturday. He apparently got retested on Saturday. He still tested positive. They had to switch his dialysis days to Saturday. Unfortunately he was not able to get to dialysis today due to increasing shortness of breath. O2 saturations were low. He came to the ER for further evaluation. In the ER patient was evaluated. White count 4.0, hemoglobin 7.2. Platelet count 65. Sodium 144, potassium 4.0. Creatinine 8.2, GFR 7. Glucose 157. Troponin was 0.26 with a BNP of greater than 15,000. Chest x-ray showed evidence of Covid pneumonia. Patient was admitted for treatment. When saw the patient in ER, patient appeared appropriate on a nonrebreather. Allergies No Known Drug Allergies Allergy (Verified 11/24/19 04:29) Unknown Home medications list reviewed: Yes Home Medications: Amlodipine [Norvasc*] 10 mg PO DAILY 11/24/19 Atorvastatin Calcium [Lipitor*] 10 mg PO DAILY 11/24/19 Furosemide 40 mg PO BID 11/24/19 Aspirin [Aspirin EC 81 MG] 81 mg PO DAILY 09/06/20 Cholecalciferol (Vitamin D3) [Vitamin D3] 5,000 units PO DAILY 09/06/20 Apixaban [Eliquis *] 2.5 mg PO BID #60 tablet 10/04/20 Ascorbic Acid [Vitamin C*] 500 mg PO BEDTIME #30 tablet 10/04/20 Budesonide [Pulmicort Flexhaler] 180 mcg IH BID #1 aer.[email or web address] 10/04/20 Bumetanide [Bumex*] 2 mg PO DAILY #60 tab 10/04/20 Calcitrol [Rocaltrol*] 0.5 mcg PO DAILY #60 cap 10/04/20 Calcium Acetate [Phoslo*] 1,334 mg PO TIDWM #180 tab 10/04/20 Docusate [Colace Cap*] 100 mg PO BID #60 cap 10/04/20 Doxazosin [Cardura*] 2 mg PO BEDTIME #30 tab 10/04/20 Linagliptin [Tradjenta] 5 mg PO DAILY #30 tablet 10/04/20 Melatonin 5 mg PO BEDTIME #30 tablet 10/04/20 Metoprolol Tartrate [Lopressor] 100 mg PO BID #60 tablet 10/04/20 Thiamine HCl [Vitamin B-1*] 100 mg PO BID #60 tablet 10/04/20 Zinc Sulfate [Zinc Sulfate*] 220 mg PO DAILY #30 cap 10/04/20 predniSONE [Prednisone*] 20 mg PO SEECOM #21 tab 10/04/20 - Past Medical/Surgical History Diabetic: Yes -: Diabetes mellitus type 2 -: Hypertension -: End-stage renal disease on hemodialysis -: Former tobacco use -: Anemia chronic disease -: COVID-19 pneumonia -: Right tibia sx r/t fx Psychosocial/ Personal History: His preference would be for him to have doctors and nurses who are [place]. - Family History Father -: Cancer Mother -: Diabetes - Social History Smoking Status: Unknown if ever smoked Alcohol use: Yes CD- Drugs: No Caffeine use: Yes Place of Residence: Home Review of Systems General: As per HPI Eyes: Unremarkable ENT: Unremarkable Respiratory: Shortness of Breath, SOB with Excertion, As per HPI Cardiovascular: Unremarkable Gastrointestinal: Unremarkable Genitourinary: Unremarkable Musculoskeletal: Pedal edema, As per HPI Integumentary: Unremarkable Neurological: Unremarkable Lymphatics: Unremarkable Physical Examination - Physical Exam General: Alert, In no apparent distress, Oriented x3, Cooperative HEENT: Atraumatic Neck: Supple Respiratory: Crackles/rales Cardiovascular: Normal pulses, Regular rate/rhythm Gastrointestinal: Normal bowel sounds, No tenderness, No masses, No rebound, No guarding Musculoskeletal: No erythema, No tenderness, No warmth Integumentary: No erythema, No warmth, No cyanosis, Tenderness/swelling (mild edema to the lower ext.) Neurological: Normal speech, Normal strength at 5/5 x4 extr, Normal tone, Normal affect - Studies Laboratory Data (last 24 hrs) 10/07/20 13:12: PT 10.9, INR 0.95, APTT 25.6 10/07/20 13:12: WBC 4.00 L D, Hgb 7.2 L*, Hct 21.5 L, Plt Count 65 L 10/07/20 13:12: Sodium 144, Potassium 4.0, BUN 77 H, Creatinine 8.20 H* D, Glucose 157 H, Magnesium 2.2, Total Bilirubin 1.1 H, AST 19, ALT 71, Alkaline Phosphatase 77, Lipase 45 L Assessment and Plan - Plan Pulmonary-Dr. Cervantes Nephrology-Dr. Garibay Impression: Dyspnea secondary to bilateral Covid pneumonia complicated with pulmonary edema with end-stage renal disease on hemodialysis: Elevated troponin likely related to above DM Type 2 with hypoglycemia HTN Anemia of chronic disease Hyperlipidemia Thrombocytopenia likely related to COVID Plan: Dyspnea secondary to bilateral Covid pneumonia complicated with pulmonary edema with end-stage renal disease on hemodialysis: Patient admitted for further evaluation and treatment. Case discussed with nephrology. Nephrology plans to start dialysis today. Patient will likely require dialysis again tomorrow. Will need to make arrangements for dialysis at the Covid unit. We will maintain oxygen above 93%. Patient recently on 4 L per nasal cannula. Will need to continue with prednisone, vitamin C, melatonin, thiamine and zinc. Will hold Eliquis at this time due to his thrombocytopenia and anemia. Patient will get transfuse 1 unit of blood. Troponin elevated likely related to above. Will consult cardiology. Anticipate no need for intervention. Continue with home medications. Will need to make sure patient is adequately diuresed. We will continue with Lasix and Bumex which the patient was previously on.Anticipate improvement over the next 48 to 72 hours. Elevated troponin likely related to above: We will consult cardiology. Will trend troponin. Anticipate no need for intervention at this time. DM Type 2: We will start sliding scale. Will monitor closely. HTN: We will need to restart home medication of Norvasc, metoprolol and Cardura. Anemia with thrombocytopenia: We will hold Eliquis. Transfusion to be given during dialysis. We will monitor this closely. Hyperlipidemia: Restart Lipitor. Discharge Plan: Home Plan to discharge in: 72 Hours - Advance Directives Does patient have a Living Will: No Does patient have a Durable POA for Healthcare: No - Code Status/Comfort Care Code Status Assessed: Yes (Patient is full code) Time Spent Managing Pts Care (In Minutes): 55
--- NOTE | 2020-10-07 14:17 | RAD REPORT ---
EXAM DESCRIPTION: Tejal Single View10/07/2020 1:33 pm CLINICAL HISTORY: congestion COMPARISON: 09/23/2020 FINDINGS: No significant change in the diffuse bilateral pulmonary opacities. The heart remains enla rged IMPRESSION: No significant change in extensive bilateral pulmonary opacities probably pneumonia
[2020-10-07 14:42] LABS: Blood Morphology Comment NOT SEEN (NOT SEEN); Platelet Estimate DECR
[2020-10-07] MEDS ORDERED: ONDANSETRON 4 MG/2 ML VIAL IV PRN (15:43)
[2020-10-07] MEDS ORDERED: ACETAMINOPHEN 500 MG TAB PO PRN (15:43)
[2020-10-07] MEDS ORDERED: IPRATROPIUM BROM 0.5MG/2.5ML NEB PRN (15:43)
[2020-10-07] MEDS ORDERED: ALBUTEROL 2.5 MG/3 ML NEB SOL NEB PRN (15:43)
[2020-10-07] MEDS ORDERED: FUROSEMIDE 20 MG/ 2ML VIAL ONE (16:04)
[2020-10-07] MEDS: INSULIN -REGULAR HUMAN 50 UNIT/0.5 ML ML SQ SCH ×2 (16:30→22:36)
[2020-10-07 16:37] VITALS: BMI 35.5
[2020-10-07] MEDS ORDERED: CALCIUM ACETATE 667 MG TAB PO SCH (17:00)
[2020-10-07] MEDS ORDERED: NA CHLORIDE 0.9% 1,000 ML IV PRN (17:54)
[2020-10-07] MEDS ORDERED: MANNITOL 25% 12.5 GM/50 ML VIAL IV PRN (17:54)
[2020-10-07] MEDS ORDERED: ALBUMIN HUMAN 25% 50 ML IV SCH (18:00)
[2020-10-07] MEDS ORDERED: EPOETIN ALFA-EPBX 10,000 UNIT/ML VIAL SQ ONE (19:00)
[2020-10-07 19:33] LABS: Urine Appearance CLOUDY (Clear); Urine Bilirubin NEGATIVE (Negative); Urine Blood 2+ (Negative); Urine Color YELLOW (Yellow); Urine Glucose 1+ (Negative); Urine Protein 3+ (Negative); Urine Specific Gravity 1.015 (1.005-1.030); Urine Urobilinogen 0.2 mg/dL (0.2-1.0)
[2020-10-07 19:53] LABS: Urine Microscopic Reflex ORDER UMIC
[2020-10-07 20:13] LABS: Urine Amorphous Sediment 1+ /HPF (NONE SEEN); Urine Bacteria >50 /HPF (NONE SEEN); Urine Yeast PRESENT (NONE SEEN)
[2020-10-07] MEDS ORDERED: NA CHLORIDE 0.9% 250 ML ONE (20:41)
[2020-10-07] MEDS ORDERED: HOME MED 1 EA UNK (Metoprolol Tartrate [Lopressor] 100 MG Tablet) PO SCH (21:00)
[2020-10-07 21:42] LABS: CKMB Creatine Kinase MB 5.8 ng/mL (0.3-3.6); Troponin I 0.28 ng/mL (0.0-0.045)
[2020-10-07] MEDS: DOXAZOSIN 2 MG TAB PO SCH (22:25)
[2020-10-07] MEDS: FUROSEMIDE 40 MG TABLET PO SCH (22:26)
[2020-10-07] MEDS: predniSONE 20 MG TAB PO SCH (22:26)
[2020-10-07] MEDS: METOPROLOL TAR 50 MG TAB PO SCH (22:26)
[2020-10-07] MEDS: THIAMINE HCL 100 MG TABLET PO SCH (22:27)
[2020-10-07] MEDS: DOCUSATE NA 100 MG CAP PO SCH (22:27)
[2020-10-08 02:38] LABS: Hematocrit 24.7 % (39.6-49.0); Lymphocytes % 5.6 % (15.3-44.8); MPV 8.5 fL (7.6-11.3); RBC Red Blood Cell Count 2.77 M/uL (4.33-5.43)
[2020-10-08 02:39] LABS: Absolute Lymphocytes (CBC) 0.2 K/uL (0.7-4.9); Basophils % 0.4 % (0-1.3)
[2020-10-08 02:54] LABS: Magnesium 2.2 mg/dL (1.8-2.4); Potassium 4.3 mmol/L (3.5-5.1)
[2020-10-08 04:28] LABS: CKMB Creatine Kinase MB 3.9 ng/mL (0.3-3.6); Troponin I 0.24 ng/mL (0.0-0.045)
[2020-10-08] MEDS: Linagliptin [Tradjenta] 5 MG Tablet PO SCH (09:00)
[2020-10-08] MEDS ORDERED: ATORVASTATIN 10 MG TAB PO SCH (09:00)
[2020-10-08] MEDS: BUDESONIDE 180 MCG IH SCH (09:00)
[2020-10-08] MEDS: AMLODIPINE 10 MG TAB PO SCH (09:00)
[2020-10-08] MEDS: DOCUSATE NA 100 MG CAP PO SCH ×2 (09:00→21:00)
[2020-10-08] MEDS: METOPROLOL TAR 50 MG TAB PO SCH ×2 (09:00→22:13)
[2020-10-08] MEDS ORDERED: GLUCAGON 1 MG/VIAL IM PRN (09:14)
--- NOTE | 2020-10-08 09:17 | P.PN ---
Subjective Date of Service: 10/08/20 Primary Care Provider: Dr. Davis; Nephrology-Dr. Garibay Chief Complaint: SOB Subjective: Improving, Doing well Physical Examination - Vital Signs Temperature: 97.6 F Blood Pressure: 166/87 Pulse: 77 Respirations: 18 Pulse Ox (%): 95 - Studies Laboratory Data (last 24 hrs) 10/07/20 13:12: PT 10.9, INR 0.95, APTT 25.6 10/07/20 13:12: WBC 4.00 L D, Hgb 7.2 L*, Hct 21.5 L, Plt Count 65 L 10/07/20 13:12: Sodium 144, Potassium 4.0, BUN 77 H, Creatinine 8.20 H* D, Glucose 157 H, Magnesium 2.2, Total Bilirubin 1.1 H, AST 19, ALT 71, Alkaline Phosphatase 77, Lipase 45 L Assessment & Plan Discharge Plan: Home Plan to discharge in: 24 Hours Physician Review Additional Text: Physical exam: Patient alert, cooperative. Patient currently on 7 L per nasal cannula. Heart: Regular rate and rhythm Lungs: Crackles to the bases bilateral patient resting in bed Abdomen: Soft nontender Extremities: No significant edema noted good range of motion Impression: Dyspnea secondary to bilateral Covid pneumonia complicated with pulmonary edema with end-stage renal disease on hemodialysis: Elevated troponin likely related to above DM Type 2 with hypoglycemia HTN Anemia of chronic disease Hyperlipidemia Thrombocytopenia likely related to COVID Plan: Dyspnea secondary to bilateral Covid pneumonia complicated with pulmonary edema with end-stage renal disease on hemodialysis: Patient received dialysis yesterday lung with blood transfusion. Globin stable. Anticipate dialysis again today. Currently on 7 L per nasal cannula. Continue to wean below 4 L. Continue current medications. Eliquis and aspirin discontinued due to anemia and thrombocytopenia. Troponin improved. Anticipate no need for intervention. Continue Lasix and Bumex as recommended by nephrology. Continue diuresis. Will discuss with nephrology to make sure arrangements are made for dialysis on his appropriate days. Anticipate improvement over the next 24 to 48 hours. Elevated troponin likely related to above: Troponin improved. This is likely from demand related to volume overload. Anticipate no need for intervention at this time. Will discuss with cardiology. DM Type 2: Continue sliding scale. Will monitor and address appropriately. HTN: Restart home medication. Will monitor dose appropriately. Anemia with thrombocytopenia: Eliquis and aspirin have been discontinued. Eliquis had been used at discharge and during the last hospitalization to prevent DVT PE. Infusion given. Hemoglobin stable. Will monitor closely. Hyperlipidemia: Continue Lipitor Time Spent Managing Pts Care (In Minutes): 55
[2020-10-08] MEDS ORDERED: D50W 25 GM/50 ML VIAL IV PRN (09:18)
[2020-10-08] MEDS: CALCITROL 0.25 MCG CAP PO SCH (09:27)
[2020-10-08] MEDS: predniSONE 20 MG TAB PO SCH ×2 (09:27→22:12)
[2020-10-08] MEDS: THIAMINE HCL 100 MG TABLET PO SCH ×2 (09:27→22:11)
[2020-10-08] MEDS: CALCIUM ACETATE 667 MG TAB PO SCH ×3 (09:28→17:04)
[2020-10-08] MEDS: ZINC SULFATE 220 MG CAP PO SCH (09:29)
[2020-10-08] MEDS: FUROSEMIDE 40 MG TABLET PO SCH ×2 (09:29→22:12)
[2020-10-08] MEDS: ASCORBIC ACID 500 MG TABLET PO SCH (09:29)
[2020-10-08] MEDS: BUMETANIDE 1 MG TABLET PO SCH (09:29)
[2020-10-08] MEDS: INSULIN -REGULAR HUMAN 50 UNIT/0.5 ML ML SQ SCH ×4 (09:30→21:01)
--- NOTE | 2020-10-08 19:53 | HP ---
Date of Admission: 10/07/2020 History Of Present Illness: He is a 44-year-old male well known to us from dialysis, who presents to the hospital with significant shortness of breath, history of COVID and was requiring dialysis. He has had 2 treatments done, he is breathing somewhat better, still saturating at about 91% to 92%, req uiring some oxygen to assist. He has had COVID-19 positive infection pneumonia for now almost a omaira h. He seems to have recovered somewhat from it and some of his shortness of breath was from his volu me overload. Also with his COVID-19 issues there has been some logistics to get him on a shift and d ialysis where COVID-19 patient could be dialyzed. Here initially been dialyzing on Saturday, , Saturday shift, but now there is some consideration that he may be needing to switched to Saturday, W , Saturday on later shift or maybe Saturday, , Saturday on a third shift. This is being worked out and should be worked out hopefully by next week. At this point, the patient does have so me mild shortness of breath. He is requiring some oxygen. His O2 sats are in 91% range. Physical Examination: Vital Signs: On evaluation of his vitals the patient's vitals are stable. His blood pressure is 148 /65. He has not gotten his Bumex and Lasix today given the fact that he is being evaluated for [facility] dialysis treatment. His pulse is about 70 to 80 and regular. He is afebrile. Lungs: Reveal some crackles at the bases. Abdomen: Soft. Extremities: Revealed positive 2 edema bilaterally. Laboratory Data: Reviewed. His labs looked reasonably stable with a hemoglobin of 8.3, hematocrit o f 24.7, platelet count of 60. His chemistries show sodium 144, potassium 4.3, chloride 110, bicarb i s 25, BUN is 50, creatinine is 5.56. His calcium level was 8.8. Assessment/plan: The patient clinically looking well, end-stage renal disease, COVID-19 pneumonia, v olume status is with some overload. At this point, the patient has been dialyzed, significantly impr kelsey clinically, but still has some volume issues. He does make some urine output. Once he has had his dialysis treatment today, his Bumex and Lasix can be resumed. I will go ahead and do dialysis to day for 2.5 hours with goal to take off about 2.5 L of ultrafiltration. I discussed this with the tali mcdonald and the dialysis nurse and they are aware. The patient agrees with the plan. He is in good mo od, able to talk in full sentences at this point, but I do not want to wait for 2 more days today and tomorrow without doing another treatment. We will plan to dialyze him again Saturday morning in the h ospital and then he can be discharged with a plan to dialyze him at the dialysis unit either on a Sat, Saturday, Saturday or Saturday, , Saturday shift on third shift, when COVID positive patie nts could be attended to. I have also discussed with the patient, if there is any issue with getting him a chair time due to his COVID status at [facility], we can consider dialyzing at [facility] where such chair can perhaps more easily organized, I will arrange. I will also discuss th is with Dr. Garibay, so we can assist with coordinating this. I have also mentioned this to the [facility] nurse over here, so she can also be aware of the plan going forward. In summary dialysis today. Get dialysis chair ranged with COVID-19 status next week and perhaps discharge after another treatmen t of dialysis on Saturday. /EVITA Voice ID: [id number]
[2020-10-08] MEDS: MELATONIN 5 MG TABLET PO SCH (21:00)
[2020-10-08] MEDS: DOXAZOSIN 2 MG TAB PO SCH (22:11)
[2020-10-08] MEDS: ATORVASTATIN 10 MG TAB PO SCH (22:12)
[2020-10-09 05:10] LABS: Absolute Lymphocytes (CBC) 0.3 K/uL (0.7-4.9); Basophils % 0.4 % (0-1.3); Hematocrit 23.5 % (39.6-49.0); Lymphocytes % 7.5 % (15.3-44.8); MPV 8.4 fL (7.6-11.3); RBC Red Blood Cell Count 2.65 M/uL (4.33-5.43)
[2020-10-09 05:27] LABS: C-Reactive Protein 29.8 mg/L (<3.00); Ferritin 1129.6 ng/mL (26-388); Magnesium 2.1 mg/dL (1.8-2.4); Potassium 3.9 mmol/L (3.5-5.1)
[2020-10-09] MEDS: predniSONE 20 MG TAB PO SCH ×2 (08:10→20:30)
[2020-10-09] MEDS: CALCIUM ACETATE 667 MG TAB PO SCH ×3 (08:11→16:47)
[2020-10-09] MEDS: AMLODIPINE 10 MG TAB PO SCH (08:11)
[2020-10-09] MEDS: CALCITROL 0.25 MCG CAP PO SCH (08:11)
[2020-10-09] MEDS: ZINC SULFATE 220 MG CAP PO SCH (08:12)
[2020-10-09] MEDS: ASCORBIC ACID 500 MG TABLET PO SCH (08:12)
[2020-10-09] MEDS: FUROSEMIDE 40 MG TABLET PO SCH ×2 (08:12→20:31)
[2020-10-09] MEDS: THIAMINE HCL 100 MG TABLET PO SCH ×2 (08:12→20:30)
[2020-10-09] MEDS: METOPROLOL TAR 50 MG TAB PO SCH ×2 (08:13→20:30)
[2020-10-09] MEDS: INSULIN GLARGINE 100 UNITS/ML SQ SCH (08:13)
[2020-10-09] MEDS: BUMETANIDE 1 MG TABLET PO SCH (08:15)
[2020-10-09] MEDS: DOCUSATE NA 100 MG CAP PO SCH ×2 (08:16→20:32)
[2020-10-09] MEDS: Linagliptin [Tradjenta] 5 MG Tablet PO SCH (08:17)
[2020-10-09] MEDS: INSULIN -REGULAR HUMAN 50 UNIT/0.5 ML ML SQ SCH ×4 (08:27→20:31)
--- NOTE | 2020-10-09 09:38 | P.PN ---
Subjective Date of Service: 10/09/20 Primary Care Provider: Dr. Davis; Nephrology-Dr. Garibay Chief Complaint: SOB Subjective: Improving, Doing well Physical Examination - Vital Signs Temperature: 98.0 F Blood Pressure: 133/69 Pulse: 69 Respirations: 16 Pulse Ox (%): 93 Assessment & Plan Discharge Plan: Home Plan to discharge in: 24 Hours Physician Review Additional Text: Physical exam: Patient alert, cooperative. Patient currently on 4 L per nasal cannula Heart: Regular rate and rhythm Lungs: Crackles to the bases bilateral patient resting in bed Abdomen: Soft nontender Extremities: No significant edema noted good range of motion Impression: Dyspnea secondary to bilateral Covid pneumonia complicated with pulmonary edema with end-stage renal disease on hemodialysis: Elevated troponin likely related to above DM Type 2 with hypoglycemia HTN Anemia of chronic disease Hyperlipidemia Thrombocytopenia likely related to COVID Plan: Dyspnea secondary to bilateral Covid pneumonia complicated with pulmonary edema with end-stage renal disease on hemodialysis: Patient doing well at this time. Currently on 4 L per nasal cannula. Continue oral steroid. Continue current treatment plan. Patient received dialysis yesterday. We will continue with dialysis again tomorrow. Spoke with nephrology at length. Patient will need chair time adjusted due to his Covid status. Social work to help arrange for this. Patient will need to dialyze either on a Saturday, Saturday or Saturday Covid shift in [place]. If there is an issue getting a chair time in [place] then will need to consider dialyzing at [facility] or [place]. Patient agreeable on either plans. Anticipate discharge tomorrow once set up for outpatient dialysis has been arranged. Continue with fluid restriction and diuretic therapy. I will turn the service over to the hospitalist team tomorrow. I will go over plan of care with him. Elevated troponin likely related to above: Troponin improved. This is likely from demand related to volume overload. No need for intervention at this time. This is likely related to above. Case discussed and agreed with cardiology. DM Type 2: Continue sliding scale. Continue home medication including insulin. Will monitor and address appropriately. HTN: Continue home medication medication. Will monitor dose appropriately. Anemia with thrombocytopenia: Eliquis and aspirin have been discontinued. Eliquis had been used at discharge and during the last hospitalization to prevent DVT PE. Transfusion given during dialysis.. Hemoglobin stable. Will monitor closely. Hyperlipidemia: Continue Lipitor Time Spent Managing Pts Care (In Minutes): 55
--- NOTE | 2020-10-09 19:45 | CON ---
Date of Consultation: 10/08/2020 Reason For Consultation: Elevated troponin. History Of Present Illness: A 44-year-old male with history of end-stage renal disease, on hemodialy sis, diabetes, hypertension, anemia of chronic disease, dyslipidemia, admitted with COVID related pne umonia, was found to have elevated troponin, denies having any chest pain, but short of breath with c ough due to the pneumonia. There are no other complaints. Past Medical History: As outlined above in the HPI. Medications: Refer to reconciliation sheet for detailed list. Allergies: NO KNOWN DRUG ALLERGIES. Family History: No premature coronary artery disease, cancer. Social History: Does not smoke or drink. Does not use any drugs. Review of Systems: All systems reviewed and they were negative except what is for mentioned in HPI. Physical Examination: Vital Signs: Reviewed. Head and Neck: Pupils are equal, reactive to light. Intact eye movements. Positive JVD. No cervic al lymphadenopathy. Neck: Supple. Thyroid is not enlarged. Lungs: Rhonchi bilaterally. No accessory muscle use or muscle retraction. Heart: Regular rate and rhythm. No extra sounds. Abdomen: Soft, nontender. Bowel sounds positive. No organomegaly. No masses or hernia. No rigidi ty or rebound. Extremities: No clubbing, cyanosis. Intact pulses. Skin: No rash was noted. Neurologic: Alert, awake. No acute focal deficits appreciated. Lymph nodes: No cervical adenopathy. Investigations: Troponins 0.26, 0.28, 0.24. Creatinine [place] 8[place] [address]. Hemoglobin is 8.3. Assessment And Recommendations: Elevated troponin. This is likely related to demand ischemia and th e COVID, also a component of it could be due to the end-stage renal disease. No active chest pain at this point. Please obtain echocardiogram. Plan for stress test as an outpatient due to risk factors. SR/MODL Voice ID: [id number] Report ID: [id number]
[2020-10-09] MEDS: ATORVASTATIN 10 MG TAB PO SCH (20:30)
[2020-10-09] MEDS: DOXAZOSIN 2 MG TAB PO SCH (20:31)
[2020-10-09] MEDS: MELATONIN 5 MG TABLET PO SCH (20:32)
[2020-10-10 05:01] LABS: Absolute Lymphocytes (CBC) 0.3 K/uL (0.7-4.9); Basophils % 0.3 % (0-1.3); Hematocrit 23.5 % (39.6-49.0); Lymphocytes % 8.3 % (15.3-44.8); MPV 8.3 fL (7.6-11.3); RBC Red Blood Cell Count 2.66 M/uL (4.33-5.43)
[2020-10-10 05:23] LABS: C-Reactive Protein 16.1 mg/L (<3.00); Ferritin 942.4 ng/mL (26-388); Magnesium 2.4 mg/dL (1.8-2.4); Potassium 4.6 mmol/L (3.5-5.1); Troponin I 0.14 ng/mL (0.0-0.045)
[2020-10-10] MEDS: BUMETANIDE 1 MG TABLET PO SCH (08:13)
[2020-10-10] MEDS: METOPROLOL TAR 50 MG TAB PO SCH ×2 (08:14→20:38)
[2020-10-10] MEDS: CALCITROL 0.25 MCG CAP PO SCH (08:14)
[2020-10-10] MEDS: ZINC SULFATE 220 MG CAP PO SCH (08:14)
[2020-10-10] MEDS: CALCIUM ACETATE 667 MG TAB PO SCH ×3 (08:14→16:31)
[2020-10-10] MEDS: predniSONE 20 MG TAB PO SCH ×2 (08:15→20:51)
[2020-10-10] MEDS: ASCORBIC ACID 500 MG TABLET PO SCH (08:15)
[2020-10-10] MEDS: FUROSEMIDE 40 MG TABLET PO SCH ×2 (08:15→20:51)
[2020-10-10] MEDS: THIAMINE HCL 100 MG TABLET PO SCH ×2 (08:15→20:52)
[2020-10-10] MEDS: AMLODIPINE 10 MG TAB PO SCH (08:15)
[2020-10-10] MEDS: INSULIN -REGULAR HUMAN 50 UNIT/0.5 ML ML SQ SCH ×4 (08:16→20:52)
[2020-10-10] MEDS: INSULIN GLARGINE 100 UNITS/ML SQ SCH (08:16)
[2020-10-10] MEDS: DOCUSATE NA 100 MG CAP PO SCH ×3 (08:17→21:00)
[2020-10-10] MEDS: Linagliptin [Tradjenta] 5 MG Tablet PO SCH (09:00)
[2020-10-10] MEDS: BUDESONIDE 180 MCG IH SCH ×2 (09:00→21:00)
--- NOTE | 2020-10-10 11:19 | P.PN ---
Date of Service: 10/10/20 Vital Signs Temp Pulse Resp BP Pulse Ox 97.7 F 69 22 H 149/79 H 95 10/10/20 08:00 10/10/20 08:15 10/10/20 08:00 10/10/20 08:15 10/10/20 08:00 Medications Acetaminophen (Acetaminophen 500 Mg Tab) 500 mg PO Q4HP PRN PRN Reason: TEMP > 101' F Albuterol Sulfate (Albuterol 2.5 Mg/3 Ml Neb Sam[place]) 2.5 mg NEB [id number] PRN PRN Reason: SHORTNESS OF BREATH Amlodipine Besylate (Amlodipine 10 Mg Tab) 10 mg PO DAILY [facility] Last Admin: 10/10/20 08:15 Dose: 10 mg Documented by: Ascorbic Acid (Ascorbic Acid 500 Mg Tablet) 500 mg PO DAILY [facility] Last Admin: 10/10/20 08:15 Dose: 500 mg Documented by: Atorvastatin Calcium (Atorvastatin 10 Mg Tab) 10 mg PO BEDTIME [facility] Last Admin: 10/09/20 20:30 Dose: 10 mg Documented by: Bumetanide (Bumetanide 1 Mg Tablet) 2 mg PO DAILY [facility] Last Admin: 10/10/20 08:13 Dose: 2 mg Documented by: Calcitriol (Calcitrol 0.25 Mcg Cap) 0.5 mcg PO DAILY [facility] Last Admin: 10/10/20 08:14 Dose: 0.5 mcg Documented by: Calcium Acetate (Calcium Acetate 667 Mg Tab) 2 mg PO TIDWM [facility] Last Admin: 10/10/20 08:14 Dose: 2 mg Documented by: Dextrose (D50w 25 Gm/50 Ml Vial) 12.5 gm IV PRN PRN; Protocol PRN Reason: HYPOGLYCEMIA Docusate Sodium (Docusate Na 100 Mg Cap) 100 mg PO BID [facility] Last Admin: 10/10/20 08:17 Dose: Not Given Documented by: Doxazosin Mesylate (Doxazosin 2 Mg Tab) 2 mg PO BEDTIME [facility] Last Admin: 10/09/20 20:31 Dose: 2 mg Documented by: Furosemide (Furosemide 40 Mg Tablet) 40 mg PO BID [facility] Last Admin: 10/10/20 08:15 Dose: 40 mg Documented by: Glucagon (Glucagon 1 Mg/Vial) 1 mg IM 1X PRN; Protocol PRN Reason: HYPOGLYCEMIA Heparin Sodium (Porcine) (Heparin 1,000 Unit/Ml Vial) 6,000 unit IV EVERY HD PRN PRN Reason: AFTER EACH Home Med (Budesonide [Pulmicort Flexhaler]) 180 mcg IH BID [facility] Last Admin: 10/10/20 09:00 Dose: Not Given Documented by: Home Med (Linagliptin [Tradjenta]) 5 mg PO DAILY [facility] Last Admin: 10/10/20 09:00 Dose: Not Given Documented by: Albumin Human (Albumin 25%) 50 mls @ 100 mls/hr IV EVERY HD [facility] Insulin Glargine (Insulin Glargine 100 Units/Ml) 36 units SQ DAILY [facility] Last Admin: 10/10/20 08:16 Dose: 36 units Documented by: Insulin Human Regular (Insulin -Regular Human 50 Unit/0.5 Ml Ml) 0 unit SQ ACHS [facility]; Protocol Last Admin: 10/10/20 08:16 Dose: 8 unit Documented by: Ipratropium [place] (Ipratropium Brom 0.5mg/2.5ml) 0.5 mg NEB [id number] PRN PRN Reason: SHORTNESS OF BREATH Mannitol (Mannitol 25% 12.5 Gm/50 Ml Vial) 12.5 gm IV EVERY HD PRN PRN Reason: PRN FOR BP SUPPORT AT HD Melatonin (Melatonin 5 Mg Tablet) 5 mg PO BEDTIME [facility] Last Admin: 10/09/20 20:32 Dose: Not Given Documented by: Metoprolol Tartrate (Metoprolol Tar 50 Mg Tab) 100 mg PO BID [facility] Last Admin: 10/10/20 08:14 Dose: 100 mg Documented by: Ondansetron HCl (Ondansetron 4 Mg/2 Ml Vial) 4 mg IV Q6HP PRN PRN Reason: NAUSEA / VOMITING Prednisone (Prednisone 20 Mg Tab) 20 mg PO BID [facility] Last Admin: 10/10/20 08:15 Dose: 20 mg Documented by: Sodium Chloride (Flush Normal Saline 10 Ml) 10 ml IV BID [facility] Last Admin: 10/10/20 08:16 Dose: 10 ml Documented by: Thiamine HCl (Thiamine Hcl 100 Mg Tablet) 100 mg PO BID [facility] Last Admin: 10/10/20 08:15 Dose: 100 mg Documented by: Zinc Sulfate (Zinc Sulfate 220 Mg Cap) 220 mg PO DAILY [facility] Last Admin: 10/10/20 08:14 Dose: 220 mg Documented by: Microbiology Results 10/07/20 13:08 Blood - Blood Aerobic Blood Culture - Preliminary No growth in 24 hours. 10/07/20 13:08 Blood - Blood Anaerobic Blood Culture - Preliminary No growth in 24 hours. 10/07/20 13:12 Blood - Blood Aerobic Blood Culture - Preliminary No growth in 24 hours. 10/07/20 13:12 Blood - Blood Anaerobic Blood Culture - Preliminary No growth in 24 hours. Assessment/ Plan: Nephrology Feeling better today. Persistent weakness in his legs. No acute events overnight. Vitals, medications, blood work and imaging reviewed in the chart. NAD. Obese. MMM. Neck supple. Diminished bases. RRR. Soft Abd. No C/C. LE Edema trace. No rash. Normal speech. A/P ESRD -HD TIW HTN with CKD/ CHF -Continue amlodipine DM II with CKD -Continue Lantus -Wean prednisone as tolerated Diastolic CHF, A/C -HD TIW with UF -Low sodium diet. Anemia in CKD -Give Retacrit DANITA/ Secondary HyperPTH -Continue Calitriol LE Weakness -PT as tolerated. -Possible Rehab placement
[2020-10-10] MEDS ORDERED: EPOETIN ALFA-EPBX 10,000 UNIT/ML VIAL SQ ONE (11:30)
[2020-10-10] MEDS: MELATONIN 5 MG TABLET PO SCH ×2 (20:38→21:00)
[2020-10-10] MEDS: ATORVASTATIN 10 MG TAB PO SCH (20:38)
[2020-10-10] MEDS: DOXAZOSIN 2 MG TAB PO SCH (20:50)
[2020-10-11] MEDS: BUDESONIDE 180 MCG IH SCH ×2 (09:00→21:00)
[2020-10-11] MEDS: Linagliptin [Tradjenta] 5 MG Tablet PO SCH (09:00)
[2020-10-11] MEDS: DOCUSATE NA 100 MG CAP PO SCH ×2 (09:00→20:31)
[2020-10-11] MEDS: predniSONE 20 MG TAB PO SCH ×2 (09:15→20:32)
[2020-10-11] MEDS: CALCIUM ACETATE 667 MG TAB PO SCH ×3 (09:16→16:45)
[2020-10-11] MEDS: ASCORBIC ACID 500 MG TABLET PO SCH (09:16)
[2020-10-11] MEDS: CALCITROL 0.25 MCG CAP PO SCH (09:16)
[2020-10-11] MEDS: AMLODIPINE 10 MG TAB PO SCH (09:17)
[2020-10-11] MEDS: THIAMINE HCL 100 MG TABLET PO SCH ×2 (09:17→20:32)
[2020-10-11] MEDS: ZINC SULFATE 220 MG CAP PO SCH (09:17)
[2020-10-11] MEDS: FUROSEMIDE 40 MG TABLET PO SCH ×2 (09:18→20:32)
[2020-10-11] MEDS: METOPROLOL TAR 50 MG TAB PO SCH ×2 (09:18→20:31)
[2020-10-11] MEDS: INSULIN GLARGINE 100 UNITS/ML SQ SCH (09:19)
[2020-10-11] MEDS: INSULIN -REGULAR HUMAN 50 UNIT/0.5 ML ML SQ SCH ×4 (09:19→20:33)
[2020-10-11] MEDS: BUMETANIDE 1 MG TABLET PO SCH (09:53)
[2020-10-11] MEDS: ATORVASTATIN 10 MG TAB PO SCH (20:31)
[2020-10-11] MEDS: DOXAZOSIN 2 MG TAB PO SCH (20:31)
[2020-10-11] MEDS: MELATONIN 5 MG TABLET PO SCH (20:32)
[2020-10-12] MEDS ORDERED: HYDRALAZINE HCL 20 MG/ML VIAL IV ONE (00:05)
[2020-10-12] MEDS: INSULIN -REGULAR HUMAN 50 UNIT/0.5 ML ML SQ SCH ×3 (07:30→16:30)
[2020-10-12] MEDS: THIAMINE HCL 100 MG TABLET PO SCH (08:38)
[2020-10-12] MEDS: CALCIUM ACETATE 667 MG TAB PO SCH ×3 (08:38→17:25)
[2020-10-12] MEDS: predniSONE 20 MG TAB PO SCH (08:38)
[2020-10-12] MEDS: ASCORBIC ACID 500 MG TABLET PO SCH (08:39)
[2020-10-12] MEDS: ZINC SULFATE 220 MG CAP PO SCH (08:39)
[2020-10-12] MEDS: CALCITROL 0.25 MCG CAP PO SCH (08:39)
[2020-10-12] MEDS: INSULIN GLARGINE 100 UNITS/ML SQ SCH (08:40)
[2020-10-12] MEDS: DOCUSATE NA 100 MG CAP PO SCH (08:42)
[2020-10-12] MEDS: BUDESONIDE 180 MCG IH SCH (08:42)
[2020-10-12] MEDS: Linagliptin [Tradjenta] 5 MG Tablet PO SCH (08:43)
--- NOTE | 2020-10-12 09:36 | P.PN ---
Subjective Date of Service: 10/10/20 Patient doing well with no new complaints. He is little weak but otherwise no new complaints. Review of Systems 10-point ROS is otherwise unremarkable Physical Examination - Vital Signs Temperature: 98.5 F Blood Pressure: 155/83 Pulse: 65 Respirations: 18 Pulse Ox (%): 90 - Physical Exam General: Alert, In no apparent distress, Oriented x3 Respiratory: Clear to auscultation bilaterally, Normal air movement Cardiovascular: Regular rate/rhythm, Normal S1 S2, No murmurs Gastrointestinal: Normal bowel sounds, Soft and benign, Non-distended, No tenderness Musculoskeletal: No clubbing, No swelling, No tenderness Neurological: Normal strength at 5/5 x4 extr, Sensation intact, Cranial nerves 3-12 intact - Studies Medications List Reviewed: Yes Assessment & Plan - Problems (Diagnosis) (1) Persistent neurologic symptoms after COVID-19 Current Visit: Yes Status: Acute (2) Acute peritonitis Current Visit: No Status: Acute (3) ESRD (end stage renal disease) Current Visit: No Status: Acute - Plan 1. Continue with tapering dose of steroids 2. Physical therapy evaluation distress in patient's neurologic weakness 3. Out of bed into a chair throughout the day 4. O2 per protocol 5. Nephrology consultation for hemodialysis 6. GI and DVT prophylaxis Discharge Plan: Home Plan to discharge in: Greater than 2 days - Advance Directives Does patient have a Living Will: No Does patient have a Durable POA for Healthcare: No - Code Status/Comfort Care Code Status Assessed: Yes Code Status: Full Code Critical Care: No Time Spent Managing PTS Care (In Minutes): 35
--- NOTE | 2020-10-12 09:37 | P.PN ---
Date of Service: 10/11/20 Subjective No new changes patient doing well Review of Systems 10-point ROS is otherwise unremarkable Physical Examination - Vital Signs Reviewed - Physical Exam General: Alert, In no apparent distress, Oriented x3 Respiratory: Clear to auscultation bilaterally, Normal air movement Cardiovascular: Regular rate/rhythm, Normal S1 S2, No murmurs Neurological: Strength slightly diminished but improving; patient fatigues very quickly Assessment & Plan - Problems (Diagnosis) (1) Persistent neurologic symptoms after COVID-19 Current Visit: Yes Status: Acute (2) Acute peritonitis Current Visit: No Status: Acute (3) ESRD (end stage renal disease) Current Visit: No Status: Acute - Plan Continue with plan of care as mentioned below 1. Oral steroids tapered 2. Physical therapy evaluation distress in patient's neurologic weakness 3. Out of bed into a chair throughout the day 4. O2 per protocol 5. Nephrology consultation for hemodialysis 6. GI and DVT prophylaxis
--- NOTE | 2020-10-12 09:38 | P.PN ---
Date of Service: 10/12/20 Subjective Awaiting placement; otherwise patient is stable for discharge if not able to get placed Review of Systems 10-point ROS is otherwise unremarkable Physical Examination - Vital Signs Reviewed - Physical Exam General: Alert, In no apparent distress, Oriented x3 Respiratory: Clear to auscultation bilaterally, Normal air movement Cardiovascular: Regular rate/rhythm, Normal S1 S2, No murmurs Neurological: Strength slightly diminished but improving; patient fatigues very quickly Assessment & Plan - Problems (Diagnosis) (1) Persistent neurologic symptoms after COVID-19 Current Visit: Yes Status: Acute (2) Acute peritonitis Current Visit: No Status: Acute (3) ESRD (end stage renal disease) Current Visit: No Status: Acute - Plan Continue with plan of care as mentioned below 1. Oral steroids tapered 2. Physical therapy evaluation distress in patient's neurologic weakness 3. Out of bed into a chair throughout the day 4. O2 per protocol 5. Nephrology consultation for hemodialysis 6. GI and DVT prophylaxis
[2020-10-12] MEDS: BUMETANIDE 1 MG TABLET PO SCH (12:41)
[2020-10-12] MEDS: METOPROLOL TAR 50 MG TAB PO SCH (12:41)
[2020-10-12] MEDS: AMLODIPINE 10 MG TAB PO SCH (12:42)
[2020-10-12] MEDS: FUROSEMIDE 40 MG TABLET PO SCH (12:42)
[2020-10-12] MEDS ORDERED: NEPRO SHAKE 237 ML CAN PO SCH (14:00)
[2020-10-12 18:16] VITALS: BP 167/79; TEMP 98.7; O2SAT 90
--- NOTE | 2020-10-12 23:02 | P.PN ---
Date of Service: 10/12/20 Vital Signs Temp Pulse Resp BP Pulse Ox 98.7 F 72 16 167/79 H 90 L 10/12/20 16:00 10/12/20 16:00 10/12/20 16:00 10/12/20 16:00 10/12/20 16:00 Microbiology Results 10/07/20 13:08 Blood - Blood Aerobic Blood Culture - Final No growth in 5 days. 10/07/20 13:08 Blood - Blood Anaerobic Blood Culture - Final No growth in 5 days. 10/07/20 13:12 Blood - Blood Aerobic Blood Culture - Final No growth in 5 days. 10/07/20 13:12 Blood - Blood Anaerobic Blood Culture - Final No growth in 5 days. Assessment/ Plan: Nephrology Feeling better today. Persistent weakness in his legs. No acute events overnight. Vitals, medications, blood work and imaging reviewed in the chart. NAD. Obese. MMM. Neck supple. CTA. RRR. Soft Abd. No C/C. LE Edema trace. No rash. Normal speech. A/P ESRD -HD TIW HTN with CKD/ CHF -Continue amlodipine DM II with CKD -Continue Lantus -Wean prednisone as tolerated Diastolic CHF, A/C -HD TIW with UF -Low sodium diet. Anemia in CKD -Give Retacrit PRN DANITA/ Secondary HyperPTH -Continue Calitriol LE Weakness -PT as tolerated.
[2020-10-13] MEDS ORDERED: predniSONE 20 MG TAB PO SCH (09:00)
--- NOTE | 2020-10-19 09:52 | P.DS ---
Discharge Date: 10/12/20 Primary Care Provider: Dr. Davis; Nephrology-Dr. Garibay Disposition: DC HOME/HOME HEALTH CARE Discharge Condition: GOOD Reason for Admission: SOB Consultations: Nephrology - Problems (1) Persistent neurologic symptoms after COVID-19 Status: Acute (2) Acute peritonitis Status: Acute (3) ESRD (end stage renal disease) Status: Acute Brief History of Present Illness: Patient is a 44-year-old gentleman with history of end-stage renal disease who has been diagnosed with COVID-19 Pneumonia. Patient clinical symptoms have continued to improve. However, he came into the Emergency room because he was fatigued and weak and still feeling short of breath. Decision was made to admit for possible transfer to inpatient rehab. Hospital Course: Patient has improved with therapy throughout his hospital stay. He is doing well clinically. At this time, he is stable for discharge. Arrange for home health. Patient will follow up with home health therapy at the time of discharge. Vital Signs/Physical Exam: Temp Pulse Resp BP Pulse Ox 98.7 F 72 16 167/79 H 90 L 10/12/20 16:00 10/12/20 16:00 10/12/20 16:00 10/12/20 16:00 10/12/20 16:00 General: Alert, In no apparent distress, Oriented x3 Laboratory Data at Discharge: WBC 3.30 K/uL (4.3-10.9) L 10/10/20 03:45 Hgb 8.2 g/dL (13.6-17.9) L 10/10/20 03:45 Hct 23.5 % (39.6-49.0) L 10/10/20 03:45 Plt Count 66 K/uL (152-406) L 10/10/20 03:45 PT 10.9 SECONDS (9.5-12.5) 10/07/20 13:12 INR 0.95 10/07/20 13:12 APTT 25.6 SECONDS (24.3-36.9) 10/07/20 13:12 Sodium 141 mmol/L (136-145) 10/10/20 03:45 Potassium 4.6 mmol/L (3.5-5.1) 10/10/20 03:45 BUN 70 mg/dL (7-18) H D 10/10/20 03:45 Creatinine 6.49 mg/dL (0.55-1.3) H* D 10/10/20 03:45 Glucose 357 mg/dL (74-106) H 10/10/20 03:45 Magnesium 2.4 mg/dL (1.8-2.4) 10/10/20 03:45 Total Bilirubin 1.1 mg/dL (0.2-1.0) H 10/07/20 13:12 AST 19 U/L (15-37) 10/07/20 13:12 ALT 71 U/L (12-78) 10/07/20 13:12 Alkaline Phosphatase 77 U/L (45-117) 10/07/20 13:12 Troponin I 0.14 ng/mL (0.0-0.045) H 10/10/20 03:45 Lipase 45 U/L (73-393) L 10/07/20 13:12 Home Medications: Amlodipine [Norvasc*] 10 mg PO DAILY 11/24/19 Atorvastatin Calcium [Lipitor*] 10 mg PO DAILY 11/24/19 Furosemide 40 mg PO BID 11/24/19 Aspirin [Aspirin EC 81 MG] 81 mg PO DAILY 09/06/20 Cholecalciferol (Vitamin D3) [Vitamin D3] 5,000 units PO DAILY 09/06/20 Apixaban [Eliquis *] 2.5 mg PO BID #60 tablet 10/04/20 Budesonide [Pulmicort Flexhaler] 180 mcg IH BID #1 aer.[email or web address] 10/04/20 Bumetanide [Bumex*] 2 mg PO DAILY #60 tab 10/04/20 Calcitrol [Rocaltrol*] 0.5 mcg PO DAILY #60 cap 10/04/20 Calcium Acetate [Phoslo*] 1,334 mg PO TIDWM #180 tab 10/04/20 Docusate [Colace Cap*] 100 mg PO BID #60 cap 10/04/20 Doxazosin [Cardura*] 2 mg PO BEDTIME #30 tab 10/04/20 Linagliptin [Tradjenta] 5 mg PO DAILY #30 tablet 10/04/20 Melatonin 5 mg PO BEDTIME #30 tablet 10/04/20 Metoprolol Tartrate [Lopressor] 100 mg PO BID #60 tablet 10/04/20 Thiamine HCl [Vitamin B-1*] 100 mg PO BID #60 tablet 10/04/20 Zinc Sulfate [Zinc Sulfate*] 220 mg PO DAILY #30 cap 10/04/20 predniSONE [Prednisone*] 20 mg PO SEECOM #21 tab 10/04/20 Ascorbic Acid [Vitamin C*] 500 mg PO BID 10/07/20 Insulin Glargine Human [Lantus*] 36 unit SQ DAILY 10/07/20 Ascorbic Acid [Vitamin C*] 500 mg PO DAILY #30 tablet 10/12/20 Nepro Shake [Nepro*] 273 ml PO TID #60 can 10/12/20 predniSONE [Prednisone*] 20 mg PO DAILY #6 tab 10/12/20 New Medications: Nepro Shake [Nepro*] 273 ml PO TID #60 can predniSONE [Prednisone*] 20 mg PO DAILY #6 tab Ascorbic Acid [Vitamin C*] 500 mg PO DAILY #30 tablet Physician Discharge Instructions: OK TO DC IV AND DC HOME FOLLOW-UP WITH PRIMARY CARE PROVIDER IN 1-2 WEEKS FOLLOW-UP WITH NEPHROLOGY IN 1-2 WEEKS RETURN TO THE ER IF symptoms worsen CALL or TEXT DR. MELGOZA AT [phone] IF ANY QUESTIONS REGARDING HOSPITAL STAY. PLEASE CALL THE FLOOR AT [phone] IF ANY MEDICATION OR NURSING QUESTIONS. Diet: Renal Activity: Fall precautions Followup: Alex Garibay DO [ACTIVE - CAN ADMIT] - 1-2 Weeks (Call to schedule an appointment ) Todd Davis DO [ACTIVE - CAN ADMIT] - 1-2 Weeks (PCP -call to schedule an appointment) Time spent managing pt's care (in minutes): 35
== END 2020-10-12 19:00 | disposition home health service (06) | DRG 177 ==
LOC: ER 12:07 → ERHOLD 14:13 → 4TH 15:50
PROVIDERS: ADMIT Family Medicine; ATTEND Hospitalist
PROC: 5A1D70Z Performance of Urinary Filtration, Intermittent, Less than 6 Hours Per Day (ICD-10-PCS; principal; 2020-10-07)
DX: U07.1 COVID-19 (principal); J12.82 Pneumonia due to coronavirus disease 2019; N18.6 End stage renal disease; I50.33 Acute on chronic diastolic (congestive) heart failure; K65.9 Peritonitis, unspecified; I13.2 Hypertensive heart and chronic kidney disease with heart failure and with stage 5 chronic kidney disease, or end stage renal disease; E11.22 Type 2 diabetes mellitus with diabetic chronic kidney disease; E11.649 Type 2 diabetes mellitus with hypoglycemia without coma; D69.6 Thrombocytopenia, unspecified; E78.5 Hyperlipidemia, unspecified; D63.1 Anemia in chronic kidney disease; R77.8 Other specified abnormalities of plasma proteins; Z99.2 Dependence on renal dialysis; Z79.82 Long term (current) use of aspirin; Z79.01 Long term (current) use of anticoagulants; Z79.899 Other long term (current) drug therapy; Z79.52 Long term (current) use of systemic steroids
CPT/HCPCS: 36415; 71045; 80048; 80076; 81003; 81015; 82550; 82553; 82728; 82947; 83690; 83735; 83880; 84484; 85025; 85379; 85610; 85730; 86140; 86850; 86900; 86901; 87040; 87086; 87088; 90935; 93005; 96374; 96375; 97112; 97116; 97161; 99285; G0257; J0360; J1644; J1815; J1940; J2930; J7050; J7512; P9016; Q5106

== ENCOUNTER 2021-06-02 12:48 | Emergency (ER) | payer OTHER ==
--- OUTSIDE RECORDS SUMMARY | 2021-06-02 12:53 | XMS REPORT | Continuity of Care Document ---
:1975 Author Organization [facility] t Address [address] [place] [address] Care Team Providers Name Role Phone NEIL Attending Clinician Unavailable SUSANNA Attending Clinician Unavailable MD SUSANNA Attending Clinician Unavailable SACHA Attending Clinician Unavailable Neil GOSS Attending Clinician Only, Test Attending Clinician Unavailable Doctor Unassigned, Name Attending Clinician Unavailable Gramm RECONCILER, A Attending Clinician NEIL Admitting Clinician Unavailable SUSANNA Admitting Clinician Unavailable MD SUSANNA Admitting Clinician Unavailable Neil GOSS Admitting Clinician Payers Payer Name Policy Type Policy Number Effective Date Expiration Date [place] [facility] [place]IC[place] PART A \\T\\ [id number] 2019 B 00:00:00 [place] [id number] 2020 BENEFITS 00:00:00 [facility] [id number] 2017 00:00:00 Problems Condition Condition Condition Status Onset Resolution Last Treating Co mments Source Name Details Category Date Date Treatment Clinician Date Infection Infection Disease Active Overview: Univers associated associated 7-23 Added it y of with with 00:00: automatic [place] peritoneal peritoneal 00 ally from Medical dialysis dialysis request Bran h catheter, catheter, for initial initial surgery encounter encounter [id number] Obesity Obesity Disease Active Univers (BMI (BMI 9-20 ity of 30-39.9) 30-39.9) 00:00: [place] 00 Medical Branch ESRD (end ESRD (end Disease Active Overview: Univers stage stage 9-06 Added ity of renal renal 00:00: automatic [place] disease) disease) 00 ally from Med ica on on request Branch dialysis dialysis for surgery [id number] Tobacco Tobacco Disease Active Univers use use 07-16 ity of disorder disorder 00:00: [place] Medical [facility] Hypertrigl Hypertrigl Disease Active U nivers yceridemia yceridemia 07-16 it y of 00:00: [place] Medical [facility] 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 07-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 diabetes 00:00: [place] mellitus mellitus 00 Medica l without without Branch complicati complicati on, with on, with long-term long-term current current use of use of insulin insulin Essential Essential Disease Active Uni vers hypertensi hypertensi 07-16 it y of on on 00:00: [address] Allergies, Adverse Reactions, Alerts Allergy Allergy Status Severity Reaction(s) Onset Inactive Treating Comm ents Source Name Type Date Date Clinician NO KNOWN Drug Active Univers ALLERGIE Class ity of S [facility] Social History Social Habit Start Date Stop Date Quantity Comments Source Exposure to Not sure [place] of SARS-CoV-2 [facility] (event) [place] History of Snuff User University of tobacco use [facility] Sex Assigned At Universit y of [facility] Tobacco use and 2020-02-09 2020-02-09 Current user Univers ity of exposure 00:00:00 00:00:00 [facility] Alcohol intake 2020-02-09 2020-02-09 Current drinker of Un iversity of 00:00:00 00:00:00 alcohol (finding) [facility] edical [place] Tobacco Comment 2016-07-16 2016-07-16 1-2 packs daily Univ ersity of 00:00:00 00:00:00 sometimes; other [facility] dical times could be 1 Branch week. ; chewing tobacco - 25 years; 1 can every other day. Alcohol Comment 2016-07-16 2016-07-16 occasional Universit y of 00:00:00 00:00:00 [facility] Smoking Status Start Date Stop Date Source Former smoker 2020-02-09 00:00:00 2020-02-09 00:00:00 [facility] Branch Current every day 2018-01-06 00:00:00 [facility] Medications Ordered Filled Start Stop Current Ordering Indication Dosage Frequency Signature Comments Components Source Medication Medication Date Date Medication? Clinician (SIG) Name Name BABY 2020-0 Yes Take by Univers ASPIRIN 7-24 mouth. ity of ORAL 20:26: [place] [address] Medical Branch Cholecalcif 2020-0 Yes Take by Un denise chadd, 7-24 mouth. ity of Vitamin D3, 20:26: [place] (VITAMIN 37 Medical D3) 5,000 Branch unit tablet loratadine 2020-0 Yes 10mg Take 10 mg U nivers (CLARITIN) 7-24 by mouth ity o f 10 mg 20:26: daily. [place] tablet Medical Branch liraglutide 2020-0 Yes inject Univ ers (VICTOZA 7-24 under the ity of 2-FRANSISCO [place]) 20:26: skin. [place] [address] Medical Branch BABY 2020-0 Yes Take by Univers ASPIRIN 7-24 mouth. ity of ORAL 20:26: [place] [address] Medical Branch Cholecalcif 2020-0 Yes Take by Un denise chadd, 7-24 mouth. ity of Vitamin D3, 20:26: [place] (VITAMIN 37 Medical D3) 5,000 Branch unit tablet loratadine 2020-0 Yes 10mg Take 10 mg U nivers (CLARITIN) 7-24 by mouth ity o f 10 mg 20:26: daily. [place] [address] Medical Branch liraglutide 2020-0 Yes inject Univ ers (VICTOZA 7-24 under the ity of 2-FRANSISCO [place]) 20:26: skin. [place] [address] Medical Branch BABY 2020-0 Yes Take by Univers ASPIRIN 7-24 mouth. ity of ORAL 20:26: [place] [address] Medical Branch Cholecalcif 2020-0 Yes Take by Un denise chadd, 7-24 mouth. ity of Vitamin D3, 20:26: [place] (VITAMIN 37 Medical D3) 5,000 Branch unit tablet loratadine 2020-0 Yes 10mg Take 10 mg U nivers (CLARITIN) 7-24 by mouth ity o f 10 mg 20:26: daily. [place] tablet Medical Branch liraglutide 2020-0 Yes inject Univ ers (VICTOZA 7-24 under the ity of 2-FRANSISCO [place]) 20:26: skin. [address] Branch lactated 2020-0 Yes 1000mL at 75 Univer s ringers IV 7-24 mL/hr, ity of infusion 19:45: 1,000 [place], [place] 1,000 [place] 00 IV Medical Infusion, Branch CONTINUOUS , Starting Sat01/29/20 at 1445, Until Discontinu ed, Routine, PACU FENTanyl PF 2020-0 Yes 25ug 25 mcg, Uni vers (SUBLIMAZE 7-24 Slow IV ity of (PF)) 19:32: Push, [place] injection 11 Q5MIN PRN, Medi stacey 25 mcg 4 doses, Branch Starting Sat01/29/20 at 1432, Until Discontinu ed, Routine, Pain (scale 4-6), PACU ondansetron 2019-0 Yes 4mg 4 mg, Slow Univers (ZOFRAN 7-24 IV Push, ity of (PF)) 19:32: PRN, 1 [place] injection 4 11 dose, Medical mg Starting Branch Sat01/29/20 at 1432, Until Discontinu ed, Routine, Nausea and Vomiting (N/V), PACU BABY 2019-0 Yes Take by [facility] ASPIRIN 7-24 mouth. ity of ORAL 19:29: [address] Cholecalcif 2020-0 Yes Take by Un denise chadd, 7-24 mouth. ity of Vitamin D3, 19:29: [place] (VITAMIN [address] [place] [address] D3) 5,000 [place] unit tablet loratadine 2019-0 Yes 10mg Take 10 mg U nivers (CLARITIN) 7-24 by mouth ity o f 10 mg 19:29: daily. [address] liraglutide 2020-0 Yes inject Univ ers (VICTOZA 724 under the ity of 2-FRANSISCO [place]) 19:29: skin. [address] lactated 2020-0 2020- No 1000mL at 20 Unive rs ringers IV 7-24 07-24 mL/hr, ity of infusion 16:00: 16:03 1,000 mL, [place] 1,000 mL 00 :00 IV Medical Infusion, Branch ONCE, 1 dose, Sat01/29/20 at 1100, Routine, DSU Pre-op ceFAZolin 2020-0 Yes 1000mg 1,000 mg, U nivers (ANCEF) 7-24 IV ity of 1,000 mg in 15:30: Piggyback, [place] NaCl 0.9% 08 [address] Medical (NS) 50 mL HOLDING Branch MINI-BAG ONCE, 1 dose, Starting Sat01/29/20 at 1030, Until Discontinu ed, 50 mL, DSU Pre-op
Reason for Anti-Infec tive: Surgical Prophylaxi s
Surgi stacey Prophylaxi s: Abdominal< br>Duratio n of therapy: within 24 hours of surgery BABY 2020-0 Yes Take by Univers ASPIRIN 7-24 mouth. ity of ORAL 13:26: [place] [address] Medical Branch Cholecalcif 2020-0 Yes Take by Un denise chadd, 7- mouth. ity of Vitamin D3, 13:26: [place] (VITAMIN 51 Medical D3) 5,000 Branch unit tablet loratadine 2020-0 Yes 10mg Take 10 mg U nivers (CLARITIN) -24 by mouth ity o f 10 mg 13:26: daily. [place] [address] Medical Branch liraglutide 2020-0 Yes inject Univ ers (VICTOZA - under the ity of 2-FRANSISCO [place]) 13:26: skin. [place] [address] Medical Branch Cholecalcif 2020-0 Yes Take by Un denise chadd, - mouth. ity of Vitamin D3, 18:22: [place] (VITAMIN 12 Medical D3) 5,000 Branch unit tablet loratadine 2020-0 Yes 10mg Take 10 mg U nivers (CLARITIN) - by mouth ity o f 10 mg 18:22: daily. [place] tablet Medical Branch liraglutide 2020-0 Yes inject Univ ers (VICTOZA - under the ity of 2-FRANSISCO [place]) 18:22: skin. [place] [address] Medical Branch Cholecalcif 2020-0 Yes Take by Un denise chadd, 01-27 mouth. ity of Vitamin D3, 18:22: [place] (VITAMIN 12 Medical D3) 5,000 Branch unit tablet loratadine 2020-0 Yes 10mg Take 10 mg U nivers (CLARITIN) -23 by mouth ity o f 10 mg 18:22: daily. [place] tablet Medical Branch liraglutide 2020-0 Yes inject Univ ers (VICTOZA -23 under the ity of 2-FRANSISCO [place]) 18:22: skin. [place] [address] Medical Branch fluconazole 2020-0 Yes 200mg Take 200 U nivers 200 mg 7-22 mg by ity of tablet 00:00: mouth daily. Medical Branch fluconazole 2020-0 Yes 200mg Take 200 U nivers 200 mg 7-22 mg by ity of tablet 00:00: mouth daily. Medical Branch fluconazole 2020-0 Yes 200mg Take 200 U nivers 200 mg 7-22 mg by ity of tablet 00:00: mouth daily. Medical Branch fluconazole 2020-0 Yes 200mg Take 200 U nivers 200 mg 7-22 mg by ity of tablet 00:00: mouth daily. Medical Branch fluconazole 2020-0 Yes 200mg Take 200 U nivers 200 mg 7-22 mg by ity of tablet 00:00: mouth daily. Medical Branch VICTOZA 2020-0 2020- No 1.2mg inject 1.2 Un denise 3-FRANSISCO 0.6 7-14 07-23 mg under ity o f mg/0.1 mL 00:00: 00:00 the skin [place] as (18 mg/3 00 :00 daily. Medical mL) 1.2mg/day Branch injection glimepiride 2020-0 Yes 4mg Take 4 mg U nivers 4 mg tablet 7-13 by mouth ity of 00:00: daily. [place] Medical Branch glimepiride 2020-0 Yes 4mg Take 4 mg U nivers 4 mg tablet 7-13 by mouth ity of 00:00: daily. [place] Medical Branch glimepiride 2020-0 Yes 4mg Take 4 mg U nivers 4 mg tablet 7-13 by mouth ity of 00:00: daily. Medical Branch glimepiride 2020-0 Yes 4mg Take 4 mg U nivers 4 mg tablet 7-13 by mouth ity of 00:00: daily. Medical Branch glimepiride 2020-0 Yes 4mg Take 4 mg U nivers 4 mg tablet 7-13 by mouth ity of 00:00: daily. [place] Medical Branch sulfamethox 2020-0 Yes 1{tbl} Take 1 Un denise azole-trime 6-18 tablet by ity of thoprim 00:00: mouth 2 [place] 800-160 mg 00 (two) Medical per tablet times Branch daily. sulfamethox 2020-0 Yes 1{tbl} Take 1 Un denise azole-trime 6-18 tablet by ity of thoprim 00:00: mouth 2 [place] 800-160 mg 00 (two) Medical per tablet times Branch daily. sulfamethox 2020-0 Yes 1{tbl} Take 1 Un denise azole-trime 6-18 tablet by ity of thoprim 00:00: mouth 2 [place] 800-160 mg 00 (two) Medical per tablet times Branch daily. sulfamethox 2020-0 Yes 1{tbl} Take 1 Un denise azole-trime 6-18 tablet by ity of thoprim 00:00: mouth 2 [place] 800-160 mg 00 (two) Medical per tablet times Branch daily. sulfamethox 2020-0 Yes 1{tbl} Take 1 Un denise azole-trime 6-18 tablet by ity of thoprim 00:00: mouth 2 [place] 800-160 mg 00 (two) Medical per tablet times Branch daily. SANTYL 250 2020-0 Yes 250U Apply 250 Un denise unit/gram 5-29 Units to ity of ointment 00:00: affected [place] 00 area(s) Medical daily. Branch Apply a nickel thin layer to wound every day as directed sodium 2020-0 Yes 1000mL [place] Unive rs chloride 5-29 1,000 mL ity of 0.9 % 00:00: daily. Use [place] irrigation 00 as Medical solution directed Branch to irrigate wound every day SANTYL 250 2020-0 Yes 250U Apply 250 Un denise unit/gram 5-29 Units to ity of ointment 00:00: affected [place] 00 area(s) Medical daily. Branch Apply a nickel thin layer to wound every day as directed sodium 2020-0 Yes 1000mL [employer] Unive rs chloride 5-29 1,000 mL ity of 0.9 % 00:00: daily. Use [place] irrigation 00 as Medical solution directed Branch to irrigate wound every day SANTYL 250 2020-0 Yes 250U Apply 250 Un denise unit/gram 5-29 Units to ity of ointment 00:00: affected [place] 00 area(s) Medical daily. Branch Apply a nickel thin layer to wound every day as directed sodium 2020-0 Yes 1000mL [place] Unive rs chloride 5-29 1,000 mL ity of 0.9 % 00:00: daily. Use [place] irrigation 00 as Medical solution directed Branch to irrigate wound every day SANTYL 250 2020-0 Yes 250U Apply 250 Un denise unit/gram 5-29 Units to ity of ointment 00:00: affected [place] 00 area(s) Medical daily. Branch Apply a nickel thin layer to wound every day as directed sodium 2020-0 Yes 1000mL [place] Unive rs chloride 5-29 1,000 mL ity of 0.9 % 00:00: daily. Use [place] irrigation 00 as Medical solution directed Branch to irrigate wound every day SANTYL 250 2020-0 Yes 250U Apply 250 Un denise unit/gram 5-29 Units to ity of ointment 00:00: affected [place] 00 area(s) Medical daily. Branch Apply a nickel thin layer to wound every day as directed sodium 2020-0 Yes 1000mL [place] Unive rs chloride 5-29 1,000 mL ity of 0.9 % 00:00: daily. Use [place] irrigation 00 as Medical solution directed Branch to irrigate wound every day calcium 2020-0 Yes 667mg Take 667 Unive rs acetate 667 1-22 mg by ity of mg capsule 00:00: mouth 3 [place] 00 (three) Medical times Branch daily before meals. calcium 2020-0 Yes 667mg Take 667 Unive rs acetate 667 1-22 mg by ity of mg capsule 00:00: mouth 3 [place] 00 (three) Medical times Branch daily before meals. calcium 2020-0 Yes 667mg Take 667 Unive rs acetate 667 1-22 mg by ity of mg capsule 00:00: mouth 3 [place] 00 (three) Medical times Branch daily before meals. calcium 2020-0 Yes 667mg Take 667 Unive rs acetate 667 1-22 mg by ity of mg capsule 00:00: mouth 3 [place] 00 (three) Medical times Branch daily before meals. calcium 2020-0 Yes 667mg Take 667 Unive rs acetate 667 1-22 mg by ity of mg capsule 00:00: mouth 3 [place] 00 (three) Medical times Branch daily before meals. BABY 2018- Yes Take by Univers ASPIRIN 2-30 mouth. ity of ORAL 19:59: [address] Branch Cholecalcif 2018-07 Yes Take by Un denise chadd, 2-30 mouth. ity of Vitamin D3, 19:59: [place] ([address] D3) 5,000 Branch unit tablet loratadine 2018-07 Yes 10mg Take 10 mg U nivers (CLARITIN) 2-30 by mouth ity o f 10 mg 19:59: daily. [place] [address] Medical Branch liraglutide 2018-07 Yes inject Univ ers (VICTOZA 2-30 under the ity of 2-[place]) 19:59: skin. [address] BABY 2018-07 Yes Take by Univers ASPIRIN 2-30 mouth. ity of ORAL 19:59: [address] Branch Cholecalcif 2018-07 Yes Take by Un denise chadd, 2-30 mouth. ity of Vitamin D3, 19:59: [place] (VITAMIN [address] [place] [address] D3) 5,000 Branch unit tablet loratadine 2018-07 Yes 10mg Take 10 mg U nivers (CLARITIN) 2-30 by mouth ity o f 10 mg 19:59: daily. [place] [address] Medical Branch liraglutide 2018-07 Yes inject Univ ers (VICTOZA 2-30 under the ity of 2-[place]ANS[place]) 19:59: skin. [place] [address] Medical [place] BABY 2018-07 Yes Take by Univers ASPIRIN 2-30 mouth. ity of ORAL 19:59: [address] BABY 2018-07 Yes Take by Univers ASPIRIN 2-30 mouth. ity of ORAL 19:59: [address] Branch traMADol 50 2018-07 Yes [id number] 50mg Take 1 Univers mg tablet 2-30 tablet by ity o f 00:00: mouth [place] 00 every 6 Medical (six) Branch hours as needed for Pain (scale 7-10). traMADol 50 2018-07 Yes [id number] 50mg Take 1 Univers mg tablet 2-30 tablet by ity o f 00:00: mouth [place] 00 every 6 Medical (six) Branch hours as needed for Pain (scale 7-10). traMADol 50 2018-07 Yes [id number] 50mg Take 1 Univers mg tablet 2-30 tablet by ity o f 00:00: mouth [place] 00 every 6 Medical (six) Branch hours as needed for Pain (scale 7-10). traMADol 50 2018-07 Yes [id number] 50mg Take 1 Univers mg tablet 2-30 tablet by ity o f 00:00: mouth [place] 00 every 6 Medical (six) Branch hours as needed for Pain (scale 7-10). traMADol 50 2018-07 Yes [id number] 50mg Take 1 Univers mg tablet 2-30 tablet by ity o f 00:00: mouth [place] 00 every 6 Medical (six) Branch hours as needed for Pain (scale 7-10). traMADol 50 2018- 2020- No [id number] 50mg Take 1 Univers mg tablet 2-30 07-24 tablet by ity of 00:00: 00:00 mouth [place] 00 :00 every 6 Medical (six) Branch hours as needed for Pain (scale 7-10). [facility] [place] 2018- Yes [place] [address] [facility] 09/20" 09/20" 0-02 [facility] BABY 2018- Yes Take by Univers ASPIRIN 9-20 mouth. ity of ORAL 18:03: [address] Branch Cholecalcif 2018- Yes Take by Un denise chadd, 9-20 mouth. ity of Vitamin D3, 18:03: [place] (VITAMIN [address] [place] [address] D3) 5,000 Branch unit tablet loratadine 2018- Yes 10mg Take 10 mg U nivers (CLARITIN) 9-20 by mouth ity o f 10 mg 18:03: daily. [place] [address] Medical Branch liraglutide 2018- Yes inject Univ ers (VICTOZA -20 under the ity of 2-[place]ANS[place]) 18:03: skin. [place] [address] Medical Branch morpHINE 2018-0 Yes 4mg 4 mg, Slow Uni vers injection 4 9-20 IV Push, ity of mg 16:25: Q5MIN PRN, [place] 03 3 doses, Medical Starting Branch Sat03/27/19 at 1125, Until Discontinu ed, Routine, Pain (scale 7-10), PACU FENTanyl PF 2019-0 Yes 50ug 50 mcg, Uni vers (SUBLIMAZE 9-20 Slow IV ity of (PF)) 16:25: Push, [place] injection 03 Q5MIN PRN, Medi stacey 50 mcg 4 doses, Branch Starting Sat03/27/19 at 1125, Until Discontinu ed, Routine, Pain (scale 4-6), PACU ondansetron 2018- Yes 4mg 4 mg, Slow Univers (ZOFRAN 9-20 IV Push, ity of (PF)) 16:25: PRN, 1 [place] injection 4 03 dose, Medical mg Starting Branch Sat03/27/19 at 1125, Until Discontinu ed, Routine, Nausea and Vomiting (N/V), PACU bupivacaine 2019-0 Yes PRN, Univer s -epinephrin 03-27 Starting ity of e-pf 15:56: Fri [place] (SENSORCAIN [facility], Branch W/EPINEPHRI Until NE) 0.25 Discontinu %-1:200,000 ed, injection Routine, Intra-op lidocaine 2019-0 Yes PRN, Univers 1% (PF) 03-27 Starting ity of (XYLOCAINE) 15:34: Fri [place] injection 00 03/27/19 at [facility] stacey 1034, Branch Until Discontinu ed, Routine, Intra-op insulin 2018-0 2019- No 5U 5 Units, Unive rs regular 03-27 IV Push, ity of human 15:00: 14:54 ONCE NOW, [place] (HUMULIN R) 00 :00 1 dose, Medic al injection 5 Fri Branch Units 03/27/19 at 1000, REYNALDO, DSU Pre-op NaCl 0.9% 2019-0 Yes 500mL at 20 Univer s (NS) IV 9-20 mL/hr, IV ity of infusion 13:45: Infusion, [place] 500 mL 00 CONTINUOUS Medical , Starting Branch Sat03/27/19 at 0845, Until Discontinu ed, Routine, DSU Pre-op acetaminoph 2019-0 Yes [id number] 1000mg Take 2 Univers en (TYLENOL 9-20 tablets by it y of EXTRA 00:00: mouth [place] STRENGTH) 00 every 8 Medical 500 mg (eight) Branch tablet hours as needed for Pain. traMADol 50 2019-0 Yes [id number] 50mg Take 1 Univers mg tablet 9-20 tablet by ity o f 00:00: mouth [place] 00 every 6 Medical (six) Branch hours as needed for Pain (scale 4-6). acetaminoph 2019-0 Yes [id number] 1000mg Take 2 Univers en (TYLENOL 9-20 tablets by it y of EXTRA 00:00: mouth [place] STRENGTH) 00 every 8 Medical 500 mg (eight) Branch tablet hours as needed for Pain. traMADol 50 2019-0 Yes [id number] 50mg Take 1 Univers mg tablet 9-20 tablet by ity o f 00:00: mouth [place] 00 every 6 Medical (six) Branch hours as needed for Pain (scale 4-6). acetaminoph 2019-0 Yes [id number] 1000mg Take 2 Univers en (TYLENOL 9-20 tablets by it y of EXTRA 00:00: mouth [place] STRENGTH) 00 every 8 Medical 500 mg (eight) Branch tablet hours as needed for Pain. traMADol 50 2019-0 Yes [id number] 50mg Take 1 Univers mg tablet 9-20 tablet by ity o f 00:00: mouth [place] 00 every 6 Medical (six) Branch hours as needed for Pain (scale 4-6). acetaminoph 2019-0 Yes [id number] 1000mg Take 2 Univers en (TYLENOL 9-20 tablets by it y of EXTRA 00:00: mouth [place] STRENGTH) 00 every 8 Medical 500 mg (eight) Branch tablet hours as needed for Pain. traMADol 50 2019-0 Yes [id number] 50mg Take 1 Univers mg tablet 9-20 tablet by ity o f 00:00: mouth [place] 00 every 6 Medical (six) Branch hours as needed for Pain (scale 4-6). acetaminoph 2019-0 Yes [id number] 1000mg Take 2 Univers en (TYLENOL 9-20 tablets by it y of EXTRA 00:00: mouth [place] STRENGTH) 00 every 8 Medical 500 mg (eight) Branch tablet hours as needed for Pain. traMADol 50 2018-0 Yes [id number] 50mg Take 1 Univers mg tablet 9-20 tablet by ity o f 00:00: mouth [place] 00 every 6 Medical (six) Branch hours as needed for Pain (scale 4-6). acetaminoph 2019-0 Yes [id number] 1000mg Take 2 Univers en (TYLENOL 9-20 tablets by it y of EXTRA 00:00: mouth [place] STRENGTH) 00 every 8 Medical 500 mg (eight) Branch tablet hours as needed for Pain. traMADol 50 2019-0 Yes [id number] 50mg Take 1 Univers mg tablet 9-20 tablet by ity o f 00:00: mouth [place] 00 every 6 Medical (six) Branch hours as needed for Pain (scale 4-6). acetaminoph 2019-0 Yes [id number] 1000mg Take 2 Univers en (TYLENOL 9-20 tablets by it y of EXTRA 00:00: mouth [place] STRENGTH) 00 every 8 Medical 500 mg (eight) Branch tablet hours as needed for Pain. traMADol 50 2019-0 Yes [id number] 50mg Take 1 Univers mg tablet 9-20 tablet by ity o f 00:00: mouth [place] 00 every 6 Medical (six) Branch hours as needed for Pain (scale 4-6). acetaminoph 2019-0 Yes [id number] 1000mg Take 2 Univers en (TYLENOL 9-20 tablets by it y of EXTRA 00:00: mouth [place] STRENGTH) 00 every 8 Medical 500 mg (eight) Branch tablet hours as needed for Pain. traMADol 50 2019-0 Yes [id number] 50mg Take 1 Univers mg tablet 9-20 tablet by ity o f 00:00: mouth [place] 00 every 6 Medical (six) Branch hours as needed for Pain (scale 4-6). acetaminoph 2019-0 Yes [id number] 1000mg Take 2 Univers en (TYLENOL 9-20 tablets by it y of EXTRA 00:00: mouth [place] STRENGTH) 00 every 8 Medical 500 mg (eight) Branch tablet hours as needed for Pain. traMADol 50 2019-0 Yes [id number] 50mg Take 1 Univers mg tablet 9-20 tablet by ity o f 00:00: mouth [place] 00 every 6 Medical (six) Branch hours as needed for Pain (scale 4-6). acetaminoph 2019-0 Yes [id number] 1000mg Take 2 Univers en (TYLENOL 9-20 tablets by it y of EXTRA 00:00: mouth [place] STRENGTH) 00 every 8 Medical 500 mg (eight) Branch tablet hours as needed for Pain. traMADol 50 2019-0 Yes [id number] 50mg Take 1 Univers mg tablet 9-20 tablet by ity o f 00:00: mouth [place] 00 every 6 Medical (six) Branch hours as needed for Pain (scale 4-6). ceFAZolin 2019-0 Yes 1000mg Univer s (ANCEF) 9-16 ity of 1,000 mg in 14:00: [place] NaCl 0.9% 00 Medical (NS) 50 mL Branch MINI-BAG ceFAZolin 2019-0 Yes 1000mg Univer s (ANCEF) 9-16 ity of 1,000 mg in 14:00: [place] NaCl 0.9% 00 Medical (NS) 50 mL Branch MINI-BAG ceFAZolin 2019-0 Yes 1000mg Univer s (ANCEF) 9-16 ity of 1,000 mg in 14:00: [place] NaCl 0.9% 00 Medical (NS) 50 mL Branch MINI-BAG BABY Yes Take by Univers ASPIRIN 9-05 mouth. ity of ORAL 19:19: [place] [address] Medical Branch Cholecalcif Yes Take by Un denise chadd, 9-05 mouth. ity of Vitamin D3, 19:19: [place] (VITAMIN 49 Medical D3) 5,000 Branch unit tablet loratadine Yes 10mg Take 10 mg U nivers (CLARITIN) 9-05 by mouth ity o f 10 mg 19:19: daily. [place] tablet 49 Medical Branch BABY Yes Take by Univers ASPIRIN 9-05 mouth. ity of ORAL 19:19: [place] [address] Medical Branch Cholecalcif Yes Take by Un denise chadd, 9-05 mouth. ity of Vitamin D3, 19:19: [place] (VITAMIN 49 Medical D3) 5,000 Branch unit tablet loratadine Yes 10mg Take 10 mg U nivers (CLARITIN) 9-05 by mouth ity o f 10 mg 19:19: daily. [place] tablet 49 Medical Branch BABY Yes Take by Univers ASPIRIN 9-05 mouth. ity of ORAL 19:19: [place] [address] Medical Branch Cholecalcif Yes Take by Un denise chadd, 9-05 mouth. ity of Vitamin D3, 19:19: [place] (VITAMIN 49 Medical D3) 5,000 Branch unit tablet loratadine Yes 10mg Take 10 mg U nivers (CLARITIN) 9-05 by mouth ity o f 10 mg 19:19: daily. [place] tablet 49 Medical Branch BABY Yes Take by Univers ASPIRIN 9-05 mouth. ity of ORAL 19:19: [place] [address] Medical Branch Cholecalcif Yes Take by Un denise chadd, 9-05 mouth. ity of Vitamin D3, 19:19: [place] (VITAMIN 49 Medical D3) 5,000 Branch unit tablet loratadine Yes 10mg Take 10 mg U nivers (CLARITIN) 9-05 by mouth ity o f 10 mg 19:19: daily. [place] tablet 49 Medical Branch BABY Yes Take by Univers ASPIRIN 9-05 mouth. ity of ORAL 19:19: [place] [address] Medical Branch Cholecalcif Yes Take by Un denise chadd, 9-05 mouth. ity of Vitamin D3, 19:19: [place] (VITAMIN 49 Medical D3) 5,000 Branch unit tablet loratadine Yes 10mg Take 10 mg U nivers (CLARITIN) 905 by mouth ity o f 10 mg 19:19: daily. [place] tablet 49 Medical Branch BABY Yes Take by Univers ASPIRIN 03-12 mouth. ity of ORAL 19:19: 49 Medical Branch Cholecalcif Yes Take by Un denise chadd, 05 mouth. ity of Vitamin D3, 19:19: [place] (VITAMIN 49 Medical D3) 5,000 Branch unit tablet loratadine Yes 10mg Take 10 mg U nivers (CLARITIN) 03-12 by mouth ity o f 10 mg 19:19: daily. [place] tablet 49 Medical Branch doxazosin 2 Yes TAKE 1 Univ ers mg tablet 8-26 TABLET BY ity o f 00:00: MOUTH TWICE A Medical DAY Branch atorvastati Yes 10mg Take 10 mg Univers n 10 mg 8-26 by mouth ity of tablet 00:00: daily. Medical Branch doxazosin 2 Yes TAKE 1 Univ ers mg tablet 8-26 TABLET BY ity o f 00:00: MOUTH TWICE A Medical DAY Branch atorvastati Yes 10mg Take 10 mg Univers n 10 mg 8-26 by mouth ity of tablet 00:00: daily. Medical Branch doxazosin 2 Yes TAKE 1 Univ ers mg tablet 8-26 TABLET BY ity o f 00:00: MOUTH TWICE A Medical DAY Branch atorvastati Yes 10mg Take 10 mg Univers n 10 mg 8-26 by mouth ity of tablet 00:00: daily. Medical Branch doxazosin 2 Yes TAKE 1 Univ ers mg tablet 8-26 TABLET BY ity o f 00:00: MOUTH TWICE A Medical DAY Branch atorvastati Yes 10mg Take 10 mg Univers n 10 mg 8-26 by mouth ity of tablet 00:00: daily. Medical Branch doxazosin 2 Yes TAKE 1 Univ ers mg tablet 8-26 TABLET BY ity o f 00:00: MOUTH TWICE A Medical DAY Branch atorvastati 2019-0 Yes 10mg Take 10 mg Univers n 10 mg 8-26 by mouth ity of tablet 00:00: daily. Medical Branch doxazosin 2 Yes TAKE 1 Univ ers mg tablet 8-26 TABLET BY ity o f 00:00: MOUTH TWICE A Medical DAY Branch atorvastati Yes 10mg Take 10 mg Univers n 10 mg 8-26 by mouth ity of tablet 00:00: daily. Medical Branch doxazosin 2 Yes TAKE 1 Univ ers mg tablet 8-26 TABLET BY ity o f 00:00: MOUTH TWICE A Medical DAY Branch atorvastati Yes 10mg Take 10 mg Univers n 10 mg 8-26 by mouth ity of tablet 00:00: daily. Medical Branch doxazosin 2 Yes TAKE 1 Univ ers mg tablet 8-26 TABLET BY ity o f 00:00: MOUTH TWICE A Medical DAY Branch atorvastati Yes 10mg Take 10 mg Univers n 10 mg 8-26 by mouth ity of tablet 00:00: daily. Medical Branch doxazosin 2 Yes TAKE 1 Univ ers mg tablet 8-26 TABLET BY ity o f 00:00: MOUTH TWICE A Medical DAY Branch doxazosin 2 Yes TAKE 1 Univ ers mg tablet 8-26 TABLET BY ity o f 00:00: MOUTH TWICE A Medical DAY Branch atorvastati Yes 10mg Take 10 mg Univers n 10 mg 8-26 by mouth ity of tablet 00:00: daily. Medical Branch atorvastati Yes 10mg Take 10 mg Univers n 10 mg 8-26 by mouth ity of tablet 00:00: daily. Medical Branch doxazosin 2 Yes TAKE 1 Univ ers mg tablet 8-26 TABLET BY ity o f 00:00: MOUTH TWICE A Medical DAY Branch atorvastati Yes 10mg Take 10 mg Univers n 10 mg 8-26 by mouth ity of tablet 00:00: daily. Medical Branch doxazosin 2 Yes TAKE 1 Univ ers mg tablet 8-26 TABLET BY ity o f 00:00: MOUTH TWICE A Medical DAY Branch atorvastati Yes 10mg Take 10 mg Univers n 10 mg 8-26 by mouth ity of tablet 00:00: daily. [place] [facility] doxazosin 2 Yes TAKE 1 Univ ers mg tablet 8-26 TABLET BY ity o f 00:00: MOUTH TWICE A Medical DAY Branch atorvastati Yes 10mg Take 10 mg Univers n 10 mg 8-26 by mouth ity of tablet 00:00: daily. [place] [facility] doxazosin 2 Yes TAKE 1 Univ ers mg tablet 8-26 TABLET BY ity o f 00:00: MOUTH TWICE A Medical DAY Branch atorvastati Yes 10mg Take 10 mg Univers n 10 mg 8-26 by mouth ity of tablet 00:00: daily. [place] [facility] doxazosin 2 Yes TAKE 1 Univ ers mg tablet 8-26 TABLET BY ity o f 00:00: MOUTH TWICE A Medical DAY Branch atorvastati Yes 10mg Take 10 mg Univers n 10 mg 8-26 by mouth ity of tablet 00:00: daily. [place] [facility] doxazosin 2 Yes TAKE 1 Univ ers mg tablet 8-26 TABLET BY ity o f 00:00: MOUTH [place] TWICE A Medical DAY Branch atorvastati Yes 10mg Take 10 mg Univers n 10 mg 8-26 by mouth ity of tablet 00:00: daily. [place] [facility] calcium 2018- Yes TAKE BY Univers acetate 667 7-25 MOUTH 1 ity o f mg capsule 00:00: CAPSULE 3 [place] 00 TIMES A Medical DAY WITH Branch FOOD AND 1 CAPSUE 2 TIMES WITH SNACKS calcium Yes TAKE BY Univers acetate 667 7-25 MOUTH 1 ity o f mg capsule 00:00: CAPSULE 3 [place] 00 TIMES A Medical DAY WITH Branch FOOD AND 1 CAPSUE 2 TIMES WITH SNACKS calcium Yes TAKE BY Univers acetate 667 7-25 MOUTH 1 ity o f mg capsule 00:00: CAPSULE 3 [place] 00 TIMES A Medical DAY WITH Branch FOOD AND 1 CAPSUE 2 TIMES WITH SNACKS calcium Yes TAKE BY Univers acetate 667 7-25 MOUTH 1 ity o f mg capsule 00:00: CAPSULE 3 [place] 00 TIMES A Medical DAY WITH Branch FOOD AND 1 CAPSUE 2 TIMES WITH SNACKS calcium Yes TAKE BY [facility] 66 7-25 MOUTH 1 ity o f mg capsule 00:00: CAPSULE 3 [place] 00 TIMES A Medical DAY WITH Branch FOOD AND 1 CAPSUE 2 TIMES WITH SNACKS calcium Yes TAKE BY [facility] 66 7-25 MOUTH 1 ity o f mg capsule 00:00: CAPSULE 3 [place] 00 TIMES A Medical DAY WITH Branch FOOD AND 1 CAPSUE 2 TIMES WITH SNACKS calcium Yes TAKE BY [place] [address] 7-25 MOUTH 1 ity o f mg capsule 00:00: CAPSULE 3 [place] 00 TIMES A Medical DAY WITH Branch FOOD AND 1 CAPSUE 2 TIMES WITH SNACKS calcium Yes TAKE BY [place] [address] 7-25 MOUTH 1 ity o f mg capsule 00:00: CAPSULE 3 [place] 00 TIMES A Medical DAY WITH Branch FOOD AND 1 CAPSUE 2 TIMES WITH SNACKS calcium Yes TAKE BY [place] [address] 7-25 MOUTH 1 ity o f mg capsule 00:00: CAPSULE 3 [place] 00 TIMES A Medical DAY WITH Branch FOOD AND 1 CAPSUE 2 TIMES WITH SNACKS calcium 2020- No TAKE BY [place] [address] 7- MOUTH 1 ity of mg capsule 00:00: 00:00 CAPSULE 3 [place] 00 :00 TIMES A Medical DAY WITH Branch FOOD AND 1 CAPSUE 2 TIMES WITH SNACKS calcium 2020- No TAKE BY [place] [address] 7 07-23 MOUTH 1 ity of mg capsule 00:00: 00:00 CAPSULE 3 [place] 00 :00 TIMES A Medical DAY WITH Branch FOOD AND 1 CAPSUE 2 TIMES WITH SNACKS calcium 2020- No TAKE BY [place] [address] 7 07-23 MOUTH 1 ity of mg capsule 00:00: 00:00 CAPSULE 3 [place] 00 :00 TIMES A Medical DAY WITH Branch FOOD AND 1 CAPSUE 2 TIMES WITH SNACKS furosemide Yes TAKE 1 Unive rs 40 mg 7-22 TABLET BY ity of tablet 00:00: MOUTH [place] 00 TWICE A Medical DAY Branch metoprolol Yes TAKE 1 Unive rs tartrate 50 7-22 TABLET BY ity of mg tablet 00:00: MOUTH [place] 00 TWICE A Medical DAY Branch furosemide 2018- Yes TAKE 1 Unive rs 40 mg 7-22 TABLET BY ity of tablet 00:00: MOUTH TWICE A Medical DAY Branch metoprolol 20190 Yes TAKE 1 Unive rs tartrate 50 7-22 TABLET BY ity of mg tablet 00:00: MOUTH TWICE A Medical DAY Branch furosemide 2019-0 Yes TAKE 1 Unive rs 40 mg 7-22 TABLET BY ity of tablet 00:00: TWICE A Medical DAY Branch metoprolol Yes TAKE 1 Unive rs tartrate 50 7-22 TABLET BY ity of mg tablet 00:00: MOUTH TWICE A Medical DAY Branch furosemide 2018- Yes TAKE 1 Unive rs 40 mg 7-22 TABLET BY ity of tablet 00:00: TWICE A Medical DAY Branch metoprolol Yes TAKE 1 Unive rs tartrate 50 7-22 TABLET BY ity of mg tablet 00:00: TWICE A Medical DAY Branch furosemide 2018- Yes TAKE 1 Unive rs 40 mg 7-22 TABLET BY ity of tablet 00:00: TWICE A Medical DAY Branch metoprolol 2018-0 Yes TAKE 1 Unive rs tartrate 50 7-22 TABLET BY ity of mg tablet 00:00: TWICE A Medical DAY Branch furosemide 2019-0 Yes TAKE 1 Unive rs 40 mg 7-22 TABLET BY ity of tablet 00:00: TWICE A Medical DAY Branch metoprolol 2019-0 Yes TAKE 1 Unive rs tartrate 50 7-22 TABLET BY ity of mg tablet 00:00: TWICE A Medical DAY Branch furosemide 2019-0 Yes TAKE 1 Unive rs 40 mg 7-22 TABLET BY ity of tablet 00:00: TWICE A Medical DAY Branch metoprolol 2019-0 Yes TAKE 1 Unive rs tartrate 50 7-22 TABLET BY ity of mg tablet 00:00: MOUTH TWICE A Medical DAY Branch furosemide 2019-0 Yes TAKE 1 Unive rs 40 mg 7-22 TABLET BY ity of tablet 00:00: TWICE A Medical DAY Branch metoprolol 2018-0 Yes TAKE 1 Unive rs tartrate 50 7-22 TABLET BY ity of mg tablet 00:00: TWICE A Medical DAY Branch furosemide 2018-0 Yes TAKE 1 Unive rs 40 mg 7-22 TABLET BY ity of tablet 00:00: MOUTH TWICE A Medical DAY Branch metoprolol 2019-0 Yes TAKE 1 Unive rs tartrate 50 7-22 TABLET BY ity of mg tablet 00:00: MOUTH TWICE A Medical DAY Branch furosemide 2019-0 Yes TAKE 1 Unive rs 40 mg 7-22 TABLET BY ity of tablet 00:00: MOUTH TWICE A Medical DAY Branch metoprolol 0 Yes TAKE 1 Unive rs tartrate 50 7-22 TABLET BY ity of mg tablet 00:00: MOUTH TWICE A Medical DAY Branch furosemide 2019-0 Yes TAKE 1 Unive rs 40 mg 7-22 TABLET BY ity of tablet 00:00: MOUTH TWICE A Medical DAY Branch metoprolol Yes TAKE 1 Unive rs tartrate 50 7-22 TABLET BY ity of mg tablet 00:00: TWICE A Medical DAY Branch furosemide 2018-0 Yes TAKE 1 Unive rs 40 mg 7-22 TABLET BY ity of tablet 00:00: TWICE A Medical DAY Branch metoprolol 2018-0 Yes TAKE 1 Unive rs tartrate 50 7-22 TABLET BY ity of mg tablet 00:00: MOUTH TWICE A Medical DAY Branch furosemide 2019-0 Yes TAKE 1 Unive rs 40 mg 7-22 TABLET BY ity of tablet 00:00: TWICE A Medical DAY Branch metoprolol 2019-0 Yes TAKE 1 Unive rs tartrate 50 7-22 TABLET BY ity of mg tablet 00:00: TWICE A Medical DAY Branch furosemide 2019-0 Yes TAKE 1 Unive rs 40 mg 7-22 TABLET BY ity of tablet 00:00: TWICE A Medical DAY Branch metoprolol 2019-0 Yes TAKE 1 Unive rs tartrate 50 7-22 TABLET BY ity of mg tablet 00:00: MOUTH TWICE A Medical DAY Branch furosemide 2019-0 Yes TAKE 1 Unive rs 40 mg 7-22 TABLET BY ity of tablet 00:00: TWICE A Medical DAY Branch metoprolol 2019-0 Yes TAKE 1 Unive rs tartrate 50 7-22 TABLET BY ity of mg tablet 00:00: TWICE A Medical DAY Branch furosemide 2019-0 Yes TAKE 1 Unive rs 40 mg 7-22 TABLET BY ity of tablet 00:00: MOUTH TWICE A Medical DAY Branch metoprolol 2019-0 Yes TAKE 1 Unive rs tartrate 50 7-22 TABLET BY ity of mg tablet 00:00: MOUTH [place] 00 TWICE A Medical DAY Branch GLIMEPIRIDE 2018- Yes [id number] TAKE 1 Univers 2 mg tablet 1-19 TABLET BY ity of 00:00: MOUTH [place] 00 EVERY DAY Medical WITH Branch BREAKFAST GLIMEPIRIDE 2017-07 Yes [id number] TAKE 1 Univers 2 mg tablet 1-19 TABLET BY ity of 00:00: MOUTH [place] 00 EVERY DAY Medical WITH Branch BREAKFAST GLIMEPIRIDE 2017-07 Yes [id number] TAKE 1 Univers 2 mg tablet 1-19 TABLET BY ity of 00:00: MOUTH [place] 00 EVERY DAY Medical WITH Branch BREAKFAST GLIMEPIRIDE 2017-07 Yes [id number] TAKE 1 Univers 2 mg tablet 1-19 TABLET BY ity of 00:00: MOUTH [place] 00 EVERY DAY Medical WITH Branch BREAKFAST GLIMEPIRIDE 2017-07 Yes [id number] TAKE 1 Univers 2 mg tablet 1-19 TABLET BY ity of 00:00: MOUTH [place] 00 EVERY DAY Medical WITH Branch BREAKFAST GLIMEPIRIDE 2017-07 Yes [id number] TAKE 1 Univers 2 mg tablet 1-19 TABLET BY ity of 00:00: MOUTH [place] 00 EVERY DAY Medical WITH Branch BREAKFAST GLIMEPIRIDE 2017-07 Yes [id number] TAKE 1 Univers 2 mg tablet 1-19 TABLET BY ity of 00:00: MOUTH [place] 00 EVERY DAY Medical WITH Branch BREAKFAST GLIMEPIRIDE 2017-07 Yes [id number] TAKE 1 Univers 2 mg tablet 1-19 TABLET BY ity of 00:00: MOUTH [place] 00 EVERY DAY Medical WITH Branch BREAKFAST GLIMEPIRIDE 2017-07 Yes [id number] TAKE 1 Univers 2 mg tablet 1-19 TABLET BY ity of 00:00: MOUTH [place] 00 EVERY DAY Medical WITH Branch BREAKFAST GLIMEPIRIDE 2017-07 Yes [id number] TAKE 1 Univers 2 mg tablet 1-19 TABLET BY ity of 00:00: MOUTH [place] 00 EVERY DAY Medical WITH Branch BREAKFAST GLIMEPIRIDE 2017-07 Yes [id number] TAKE 1 Univers 2 mg tablet 1-19 TABLET BY ity of 00:00: MOUTH [place] 00 EVERY DAY Medical WITH Branch BREAKFAST GLIMEPIRIDE 2017-07 Yes [id number] TAKE 1 Univers 2 mg tablet 1-19 TABLET BY ity of 00:00: MOUTH [place] 00 EVERY DAY Medical WITH Branch BREAKFAST GLIMEPIRIDE 2017-07 2020- No [id number] TAKE 1 Univers 2 mg tablet 07-26 TABLET BY it y of 00:00: 00:00 MOUTH [place] 00 :00 EVERY DAY Medical WITH Branch BREAKFAST GLIMEPIRIDE 2017-07 2020- No [id number] TAKE 1 Univers 2 mg tablet 07-26 TABLET BY it y of 00:00: 00:00 MOUTH [place] 00 :00 EVERY DAY Medical WITH Branch BREAKFAST GLIMEPIRIDE 2017-07 2020- No [id number] TAKE 1 Univers 2 mg tablet 07-26 TABLET BY it y of 00:00: 00:00 MOUTH [place] 00 :00 EVERY DAY Medical WITH Branch BREAKFAST [facility] 2017-07 Yes [id number] TAKE 1 Univers mg tablet 1-12 TABLET BY ity o f 00:00: MOUTH [place] 00 EVERY DAY Medical Branch [facility] 5 2017- Yes [id number] TAKE 1 Univers mg tablet 1-12 TABLET BY ity o f 00:00: MOUTH [place] 00 EVERY DAY Medical [facility] 5 2017- Yes [id number] TAKE 1 Univers mg tablet 1-12 TABLET BY ity o f 00:00: MOUTH [place] 00 EVERY DAY Medical Branch [facility] 5 2017- Yes [id number] TAKE 1 Univers mg tablet 1-12 TABLET BY ity o f 00:00: MOUTH [place] 00 EVERY DAY Medical Branch [facility] 5 2017- Yes [id number] TAKE 1 Univers mg tablet 1-12 TABLET BY ity o f 00:00: MOUTH [place] 00 EVERY DAY Medical Branch [facility] 5 2018- Yes [id number] TAKE 1 Univers mg tablet 1-12 TABLET BY ity o f 00:00: MOUTH [place] 00 EVERY DAY Medical Branch [facility] 5 2018- Yes [id number] TAKE 1 Univers mg tablet 1-12 TABLET BY ity o f 00:00: MOUTH [place] 00 EVERY DAY Medical Branch [facility] 5 2017- Yes [id number] TAKE 1 Univers mg tablet 1-12 TABLET BY ity o f 00:00: MOUTH [place] 00 EVERY DAY Medical Branch [facility] 5 2017- Yes [id number] TAKE 1 Univers mg tablet 1-12 TABLET BY ity o f 00:00: MOUTH [place] 00 EVERY DAY Medical Branch [facility] 5 2017-07 Yes [id number] TAKE 1 Univers mg tablet 1-12 TABLET BY ity o f 00:00: MOUTH [place] 00 EVERY DAY Medical Branch [facility]-07 Yes [id number] TAKE 1 Univers mg tablet 1-12 TABLET BY ity o f 00:00: MOUTH [place] 00 EVERY DAY [facility] Branch [facility] 2017-07 Yes [id number] TAKE 1 Univers mg tablet 1-12 TABLET BY ity o f 00:00: MOUTH [place] 00 EVERY DAY Medical Branch [facility] 2017-07 Yes [id number] TAKE 1 Univers mg tablet 1-12 TABLET BY ity o f 00:00: MOUTH [place] 00 EVERY DAY Medical Branch [facility] 2017-07 Yes [id number] TAKE 1 Univers mg tablet 1-12 TABLET BY ity o f 00:00: MOUTH [place] 00 EVERY DAY Medical Branch [facility] 2017-07 Yes [id number] TAKE 1 Univers mg tablet 1-12 TABLET BY ity o f 00:00: MOUTH [place] 00 EVERY DAY Medical Branch [facility] 5 2017-07 Yes [id number] TAKE 1 Univers mg tablet 1-12 TABLET BY ity o f 00:00: MOUTH [place] 00 EVERY DAY Medical Branch [facility] 5 2017-07 Yes [id number] TAKE 1 Univers mg tablet 1-12 TABLET BY ity o f 00:00: MOUTH [place] 00 EVERY DAY Medical Branch [facility] 5 2017-07 Yes [id number] TAKE 1 Univers mg tablet 1-12 TABLET BY ity o f 00:00: MOUTH [place] 00 EVERY DAY Medical Branch [facility] 5 2017-07 Yes [id number] TAKE 1 Univers mg tablet 1-12 TABLET BY ity o f 00:00: MOUTH [place] 00 EVERY DAY Medical Branch amLODIPine 2018-0 Yes [id number] 10mg Take 1 U nivers 10 mg 7-02 tablet by ity of tablet 00:00: mouth [place] 00 daily. Medical Branch amLODIPine 2018-0 Yes [id number] 10mg Take 1 U nivers 10 mg 7-02 tablet by ity of tablet 00:00: mouth [place] 00 daily. Medical Branch amLODIPine 2018-0 Yes [id number] 10mg Take 1 U nivers 10 mg 7-02 tablet by ity of tablet 00:00: mouth [place] 00 daily. Medical Branch amLODIPine 20180 Yes [id number] 10mg Take 1 U nivers 10 mg 7-02 tablet by ity of tablet 00:00: mouth [place] 00 daily. Medical Branch amLODIPine Yes [id number] 10mg Take 1 U nivers 10 mg 7-02 tablet by ity of tablet 00:00: mouth [place] 00 daily. Medical Branch amLODIPine Yes [id number] 10mg Take 1 U nivers 10 mg 7-02 tablet by ity of tablet 00:00: mouth [place] 00 daily. Medical Branch amLODIPine Yes [id number] 10mg Take 1 U nivers 10 mg 7-02 tablet by ity of tablet 00:00: mouth [place] 00 daily. Medical Branch amLODIPine Yes [id number] 10mg Take 1 U nivers 10 mg 7-02 tablet by ity of tablet 00:00: mouth [place] 00 daily. Medical Branch amLODIPine Yes [id number] 10mg Take 1 U nivers 10 mg 7-02 tablet by ity of tablet 00:00: mouth [place] 00 daily. Medical Branch amLODIPine Yes [id number] 10mg Take 1 U nivers 10 mg 7-02 tablet by ity of tablet 00:00: mouth [place] 00 daily. Medical Branch amLODIPine Yes [id number] 10mg Take 1 U nivers 10 mg 7-02 tablet by ity of tablet 00:00: mouth [place] 00 daily. Medical Branch amLODIPine Yes [id number] 10mg Take 1 U nivers 10 mg 7-02 tablet by ity of tablet 00:00: mouth [place] 00 daily. Medical Branch amLODIPine Yes [id number] 10mg Take 1 U nivers 10 mg 7-02 tablet by ity of tablet 00:00: mouth [place] 00 daily. Medical Branch amLODIPine Yes [id number] 10mg Take 1 U nivers 10 mg 7-02 tablet by ity of tablet 00:00: mouth [place] 00 daily. Medical Branch amLODIPine Yes [id number] 10mg Take 1 U nivers 10 mg 7-02 tablet by ity of tablet 00:00: mouth [place] 00 daily. Medical Branch amLODIPine Yes [id number] 10mg Take 1 U nivers 10 mg 7-02 tablet by ity of tablet 00:00: mouth [place] 00 daily. Medical Branch amLODIPine Yes [id number] 10mg Take 1 U nivers 10 mg 7-02 tablet by ity of tablet 00:00: mouth [place] 00 daily. Medical Branch amLODIPine Yes [id number] 10mg Take 1 U nivers 10 mg 7-02 tablet by ity of tablet 00:00: mouth [place] 00 daily. Medical Branch amLODIPine Yes [id number] 10mg Take 1 U nivers 10 mg 7-02 tablet by ity of tablet 00:00: mouth [place] 00 daily. Medical Branch Victoza Victoza Yes [place] inject 0.[address] [facility] mg/day x 1 [facility] week then [facility] 1.2 l mg/day. [facility] max 1.8 ent mg/day Clinics Calcium Calcium Yes [place] TAKE BY [facility] Acetate Acetate [facility] MOUTH 1 [facility] - (Phos (Phos CAPSULE 3 Memoria Binder) Binder) TIMES A l DAY WITH [facility] FOOD AND 1 ent CAPSUE 2 Clinics TIMES WITH SNACKS Claritin Claritin Yes [place] [address] [facility] Doxazosin Doxazosin Yes [place] take [address] Mesylate Mesylate [place] tablet by [facility] - mouth [facility] twice a l day [facility] Clinics Furosemide Furosemide Yes [place] take [address] [facility] tablet by [facility] mouth [facility] twice a l day [facility]ics Toujeo Toujeo Yes Todd INJECT SUB [facility] SoloStar SoloStar [facility] 38 UNITS Susanna kes - DAILY [facility] l [facility] Clinics Glimepiride Glimepiride Yes [place] take [address] [facility] tablet by [facility] mouth [facility] every day l [facility] Clinics Atorvastati Atorvastati Yes [place] TAKE [address] [facility] n Calcium n Calcium [facility] TABLET BY [facility] - MOUTH [facility] EVERY DAY l [facility] Clinics Vitamin D-3 Vitamin D-3 Yes Todd [address] [facility] directed [facility] Amlodipine Amlodipine Yes [place] take [address] [facility] Besylate Besylate [place] tablet by [facility] - mouth [facility] every day l [facility] ent Clinics Tradjenta Tradjenta Yes [place] TAKE [address] [facility] TABLET BY [facility] - MOUTH [facility]oria EVERY DAY l ONCE A DAY [facility] ORAL 30 ent Clinics Metoprolol Metoprolol Yes [place] take [address] [facility] Tartrate Tartrate [facility] tablet by [facility] - mouth [facility]oria twice a l day [facility] ent Clinics Atorvastati Atorvastati Yes [place] take [address] [facility] n Calcium n Calcium [facility] tablet by [facility] - mouth [facility] every day l [facility] Clinics Vital Signs Vital Name Observation Time Observation Value Comments Source Systolic blood 2020-02-09 20:54:00 169 mm[Hg] Univer sity of pressure [facility] Diastolic blood 2020-02-09 20:54:00 101 mm[Hg] Unive rsity of pressure [facility] Heart rate 2020-02-09 20:54:00 88 /min Universi ty of [facility] Body temperature 2020-02-09 20:54:[address] [facility] 2020-02-09 20:54:00 20 /min [facility] Body height 2020-02-09 20:54:00 172.7 cm Universi ty of [facility] Body weight 2020-02-09 20:54:00 112.946 kg Universi ty of [facility] BMI 2020-02-09 20:54:00 37.86 kg/m2 Universi ty [facility] Oxygen saturation in 2020-02-09 20:54:00 98 /min [facility] blood by [facility] Pulse oximetry [place] Systolic blood 2020-02-09 20:54:00 169 mm[Hg] Univer sity of [facility] Diastolic blood 2020-02-09 20:54:00 101 mm[Hg] Unive rsity of [facility] Heart rate 2020-02-09 20:54:00 88 /min Universi ty of [facility] Body temperature 2020-02-09 20:54:00 36.83 [facility]parna [facility] rate 2020-02-09 20:54:00 20 /min [facility] Body height 2020-02-09 20:54:00 172.7 cm Universi ty of [facility] Body weight 2020-02-09 20:54:00 112.946 kg Universi ty of [facility] BMI 2020-02-09 20:54:00 37.86 kg/m2 Universi ty [facility] Oxygen saturation in 2020-02-09 20:54:00 98 /min University of Arterial blood by [facility] Pulse oximetry Branch Systolic blood 2020-01-29 19:55:00 123 mm[Hg] Univer sity of pressure [place] [facility] Diastolic blood 2020-01-29 19:55:00 81 mm[Hg] Unive rsity of pressure [place] [facility] Respiratory rate 2020-01-29 19:55:00 12 /min Univ ersity of [place] [facility] Oxygen saturation in 2020-01-29 19:55:00 97 /min University of Arterial blood by [facility] Pulse oximetry Branch Heart rate 2020-01-29 19:40:00 72 /min Universi ty of [place] [facility] Body temperature 2020-01-29 19:25:00 36.89 Aparna Univ ersity of [place] [facility] Systolic blood 2020-01-28 16:36:00 111 mm[Hg] Univer sity of pressure [place] [facility] Diastolic blood 2020-01-28 16:36:00 76 mm[Hg] Unive rsity of pressure [place] [facility] Heart rate 2020-01-28 16:36:00 100 /min Universi ty of [place] [facility] Body temperature 2020-01-28 16:36:00 37.44 Aparna Univ ersity of [place] [facility] Respiratory rate 2020-01-28 16:36:00 18 /min Univ ersity of [place] [facility] Body weight 2020-01-28 16:36:00 110.859 kg Universi ty of [place] [facility] BMI 2020-01-28 16:36:00 34.10 kg/m2 Universi ty of [place] [facility] Systolic blood 2019-03-27 16:59:00 132 mm[Hg] Univer sity of pressure [place] [facility] Diastolic blood 2019-03-27 16:59:00 82 mm[Hg] Unive rsity of pressure [place] [facility] Oxygen saturation in 2019-03-27 16:59:00 100 /min University of Arterial blood by [facility] Pulse oximetry Branch Heart rate 2019-03-27 16:45:00 81 /min Universi ty of [place] [facility] Respiratory rate 2019-03-27 16:45:00 20 /min Univ ersity of [place] [facility] Body temperature 2019-03-27 16:37:00 36.94 Aparna Univ ersity of [place] [facility] Body height 2019-03-25 17:00:00 180.3 cm Universi ty of [facility] Body weight 2019-03-25 17:00:00 117.935 kg Universi ty [facility] Branch BMI 2019-03-25 17:00:00 36.26 kg/m2 Universi ty [facility] Systolic blood 2019-03-12 19:16:00 122 mm[Hg] Univer sity of pressure [facility] Diastolic blood 2019-03-12 19:16:00 79 mm[Hg] Unive rsity of pressure [facility] Heart rate 2019-03-12 19:16:00 85 /min Universi ty [facility] Body temperature 2019-03-12 19:16:[address] [facility] Res[facility] rate 2019-03-12 19:16:00 18 /min [facility] Body height 2019-03-12 19:16:00 172.7 cm Universi ty [facility] Body weight 2019-03-12 19:16:00 116.484 kg Universi ty [facility] BMI 2019-03-12 19:16:00 39.05 kg/m2 Universi ty [facility] Procedures Procedure Date / Time Performing Clinician Source Performed BASIC METABOLIC PANEL 2020-01-29 16:55:00 Mitzi Benz [facility] (NA, K, CL, CO2, Medical Branch GLUCOSE, BUN, CREATININE, CA) POCT GLUCOSE(AGE 2020-01-29 15:48:00 Perfecto Bailey [facility] >30DAYS) [facility] DAY SURGERY - ADC 2020-01-29 05:01:00 Doctor Unassigned, No [facility] Name [facility] Branch EXTERNAL PROVIDER 2020-01-28 05:01:00 Doctor Unassigned, No [facility] RECORDS Name [facility] POCT GLUCOSE(AGE 2019-03-27 16:31:00 Debra Trejo [facility] 0-30DAYS) [facility] EKG-12 LEAD 2019-03-27 14:15:39 Richard Huertas [place] john rossi [facility] BASIC METABOLIC PANEL 2019-03-27 13:52:00 Leona Telles [facility] (NA, K, CL, CO2, Medical Branch GLUCOSE, BUN, CREATININE, CA) CBC WITH DIFFERENTIAL 2019-03-27 13:51:00 Leona Telles [facility] ASSIGNMENT OF BENEFITS 2019-03-12 19:03:56 Doctor Unassigned, No [facility] Name Medical Branch REFERRAL- 2019-03-10 05:01:00 Doctor Unassigned, No [facility] REQUEST/RESPONSE Name [facility] REFERRAL- 2019-02-17 05:01:00 Doctor Unassigned, No [facility] REQUEST/RESPONSE Name [facility] Encounters Start End Encounter Admission Attending Care Care Encounter Source Date/Time Date/Time Type Type Clinicians Facility Department ID 2021-05-05 Outpatient Ila TREJO [facility] [id number] [facility] 08:28:09 DEBRA juan [facility] 2020-06-16 2020-06-16 Outpatient [facility] [id number] [facility] 00:00:00 00:00:00 [facility] Outpati ent Clinics 2020-05-24 2020-05-24 Outpatient SUSANNADELVIN [facility] [id number] [place] 00:00:00 00:00:[address] 2020-04-26 2020-04-26 Outpatient SUSANNA DELVIN [facility] [id number] [place] 00:00:00 00:00:[address] 2020-04-14 2020-04-14 Outpatient SUSANNA [facility] [id number] [place] 00:00:00 00:00:[address] 2020-04-14 2020-04-14 Outpatient [facility] [id number] [place] 00:00:00 00:00:[address] 2020-03-17 2020-03-17 Out[facility] [id number] [facility] 14:10:00 14:10:00 [facility] Medicine Outpati ent Clinics 2020-03-15 2020-03-15 Outpatient [place]ANNA [place] [id number] [place] 00:00:00 00:00:[address] 2020-03-10 2020-03-10 Outpatient SUSANNA [facility] [id number] [place] 00:00:00 00:00:[address] 2020-03-10 2020-03-10 Outpatient SUSANNA [facility] [id number] [place] 00:00:00 00:00:[address] 2020-03-08 2020-03-08 Outpatient SACHA [facility] [id number] [place] 00:00:00 00:00:00 GUILHERME 843 Method i 2020-03-08 2020-03-08 Outpatient SACHA [facility] [id number] [place] 00:00:00 00:00:00 GUILHERME 916 Method i 2020-02-22 2020-02-22 Outpatient [facility] [id number] [facility] 16:58:00 16:58:00 [facility] Outpati ent Clinics 2020-02-09 2020-02-09 Office Neil [facility] [id number] 15:18:54 16:25:44 Visit Debra Addison [id number] [place] 4.2.7.2.686 Professio [id number] [address] 2020-02-09 2020-02-09 Office Neil [facility] [id number] Univers 15:18:54 16:25:44 Visit Debra Addison [id number] i [place] [phone] [place] [address] 2020-02-09 2020-02-09 Outpatient R NEIL [facility] [id number] Univers 15:30:00 15:30:00 DEBRA juan [facility] 2020-01-29 2020-01-29 [facility] [id number] Univers 08:26:00 15:00:00 Encounter Debra Addison [id number] yessica [place] [phone] [address] 2020-01-29 2020-01-29 Outpatient R [facility] [id number] Univers 13:15:00 13:15:00 [id number] [facility] 2020-01-29 2020-01-29 Laboratory Only, Adc Test [facility] 1.2.840. [id number] Univers 08:31:17 08:46:17 Only Debra Trejo [id number] ity [place] [phone] [facility] [address] 2020-01-29 2020-01-29 Orders Doctor DELONTE 1.2.840.114 [id number] Univers 00:00:00 00:00:00 Only Unassigned, REINA [id number] ity of [place] [facility] 4.2.7.2.686 Alfred as [phone] [facility] [address] 2020-01-28 2020-01-28 [facility] [id number] Univers 11:28:36 11:56:45 Visit Debra Addison 350.1.13.10 i ty [place] [phone] [place] dical nal [address] [facility] 2020-01-28 2020-01-28 [facility] [id number] Univers 11:15:00 11:15:00 DEBRA [id number] ity [facility] 2020-01-28 2020-01-28 Outpatient R NIEL [facility] [id number] Univers 11:15:00 11:15:00 DEBRA itsophia [facility] 2020-01-28 2020-01-28 Orders Doctor DELONTE 1.2.840.114 [id number] Univers 00:00:00 00:00:00 Only Unassigned, REINA [id number] ity [place] [facility] 4.2.7.2.686 Alfred as [phone] [address] 2020-01-28 2020-01-28 [facility] 1.2.840.114 [id number] Univers 00:00:00 00:00:00 Surgery Leona Addison [id number] [place] [phone] Va dical nal 204 [facility] 2020-01-20 2020-01-20 [facility] [id number] 15:47:00 15:47:00 [facility] Medicine Outpati ent Clinics 2019-12-16 2019-12-16 [facility] [id number] 15:00:00 15:00:00 t [place] [employer] Lu[employer] s - Drive [facility] Medicine Outpati ent Clinics 2019-12-16 2019-12-16 [facility] [id number] 14:45:00 14:45:00 t [place] [employer] - Drive [facility] Medicine Outpati ent Clinics 2019-11-26 2019-11-26 [facility] [id number] 13:57:00 13:57:00 t [facility] LuWeeve s - Road [facility] Medicine Outpati ent Clinics 2019-09-15 2019-09-15 [facility] [id number] 15:15:00 15:15:00 t [place] [employer] - Drive [facility] Medicine Outpati ent Clinics 2019-09-14 2019-09-14 [facility] [id number] 07:56:00 07:56:00 t [place] R[employer] [place] - Drive [facility] Medicine Outpati ent Clinics 2019-09-10 2019-09-10 [facility] [id number] 10:00:00 10:00:00 [facility] 2019-09-07 2019-09-07 [facility] [id number] 09:39:00 09:39:00 t [place] [employer] [place] - Drive [facility] Medicine Outpati ent Clinics 2019-08-13 2019-08-13 Out[facility] [id number] 14:49:00 14:49:00 t [employer] s - Drive [facility] Medicine Outpati ent Clinics 2019-07-20 2019-07-20 Outpatient Ila TREJO MSJESUS [facility] [id number] Univers 09:15:00 09:16:44 DEBRA juan [facility] 2019-07-06 2019-07-06 Outpatient Ila TREJO [facility] [id number] Univers 10:18:00 13:59:00 DEBRA juan [facility] 2019-06-25 2019-06-25 [facility] [id number] 11:04:00 11:04:00 t [place] [employer] Weeve s - Drive [facility] Medicine Outpati ent Clinics 2019-06-18 2019-06-18 [facility] [id number] Univers 14:30:00 14:54:07 DEBRA juan [facility] 2019-06-15 2019-06-15 [facility] [id number] 10:00:00 10:00:00 t [place] [employer] Lu[employer] - Drive [facility] Medicine Outpati ent Clinics 2019-06-10 2019-06-10 [facility] [id number] 08:33:00 08:33:00 t [place] [employer] We[place] - Drive [facility] Medicine Outpati ent Clinics 2019-06-08 2019-06-08 [facility] [id number] 13:51:00 13:51:00 t [facility] [address] [facility] Medicine Outpati ent Clinics 2019-04-09 2019-04-09 [facility] [id number] Univers 13:30:00 13:40:01 DEBRA juan [facility] 2019-04-08 2019-04-08 Out[facility] [id number] 16:33:00 16:33:00 [facility] [employer] [place] [address] [facility] Medicine Outpati ent Clinics 2019-03-27 2019-03-27 [place] [id number] Univers 08:38:00 13:00:00 Encounter Debra Addison [id number] ity of [place] 4[place]2.7.2.686 [place] [id number] [place] [id number] Branch 2019-03-17 2019-03-17 [place] [id number] Univers 00:00:00 00:00:00 Leona Addison 350.1.13.10 [place] [phone] [facility] 377 [facility] 2019-03-17 2019-03-17 Telephone [facility] [id number] Univers 00:00:00 00:00:00 Leona Addison 350.1.13.10 ity of [place] [id number] [facility] 377 [facility] 2019-03-13 2019-03-13 Out[facility] [id number] 08:45:00 08:45:00 t [employer] [place] [facility] 2019-03-12 2019-03-12 Office [facility] [id number] Univers 14:05:56 15:28:12 Visit Debra Addison 350.1.13.10 i ty [place] [phone] [address] 2019-03-12 2019-03-12 Outpatient R NEIL [facility] [id number] Univers 14:00:00 14:43:39 DEBRA juan [facility] 2019-03-12 2019-03-12 Orders Doctor DELONTE 1.2.840.114 [id number] Univers 00:00:00 00:00:00 Only Unassigned, REINA 350.1.13.10 ity [place] [facility] 4.2.7.2.686 Alfred as [phone] [address] 2019-03-12 2019-03-12 Prep For [facility] 1.2.840.114 [id number] Univers 00:00:00 00:00:00 Surgery Leona Addison 350.1.13.10 it[place] of [place] [phone] [facility] 204 [facility] 2019-03-10 2019-03-10 Orders Doctor DELONTE 1.2.840.114 [id number] Univers 00:00:00 00:00:00 Only Unassigned, REINA 350.1.13.10 ity of [place] [facility] 4.2.7.2.686 Alfred as [phone] [place] [address] Branch 2019-02-17 2019-02-17 Orders Doctor DELONTE 1.2.840.114 [id number] Univers 00:00:00 00:00:00 Only Unassigned, REINA 350.1.13.10 ity of [place] [facility] 4.2.7.2.686 Alfred as [phone] [place] [address] Branch Results Test Description Test Time Test Comments Results Result Comments Source SARS-CoV-2 (COVID-19) RNA [Presence] in Respiratory sp ecimen by 2020-03-10 23:16:36 BRAD with probe detection Test Item Value Reference Range Interpretation Comme nts SARS-CoV-2 (COVID-19) RNA [Presence] in Respiratory Not detected No t-Detected specimen by BRAD with probe detection (test code = 40255-3) Basic Metabolic Panel (NA, K, CL, CO2, Glucose, BUN, Creatinine, CA)2020-01-29 17:22:00 Test Item Value Reference Range Interpretation Comments NA (test code = 136 mmol/L 135-145 0954358235) K (test code = 3.6 mmol/L 3.5-5 9790901406) CL (test code = 97 mmol/L 98-108 L 9209709895) CO2 TOTAL (test code = 28 mmol/L 23-31 9510476526) AGAP (test code = 2-16 9857073910) BUN (test code = 49 mg/dL 7-23 H 7940936190) GLUCOSE (test code = 313 mg/dL 70-110 H 4128309958) CREATININE (test code = 9.39 mg/dL 0.6-1.25 H 0856255453) CALCIUM (test code = 9.1 mg/dL 8.6-10.6 3153695748) eGFR Calculation mL/min/1.73m2 (Non-) (test code = 8362613969) eGFR Calculation mL/min/1.73m2 () (test code = 9915547112) CRISTIANA (test code = CRISTIANA) Association of Glomerular Filtration Rate (GFR) and Staging of Kidney Disease* + --+ --+ ------+| GFR (mL/min/1.73 m2) ?| With Kidney Damage ?| ?Without Kidney Damage+ --------+ --------+ +| ?>90 ?| ?Stage one ?| ? Normal ?+ ---+ ---+ -------+| ?60-89 ?| ?Stage two ?| ? Decreased GFR ? + --+ --+ ------+| ?30-59 ?| ?Stage three ?| ? Stage three ? + --+ --+ ------+| ?15-29 ?| ?Stage four ? | ? Stage four ?+ ---+ ---+ -------+| ?<15 (or dialysis) ? ?| ?Stage five ? | ? Stage five ?+ ---+ ---+ -------+ *Each stage assumes the associated GFR level has been in effect for at least three months. ?Stages 1 to 5, with or without kidney disease, indicate chronic kidney disease. Notes: Determination of stages one and two (with eGFR >59mL/min/1.73 m2) requires estimation of kidney damage for at least three months as defined by structural or functional abnormalities of the kidney, manifested by either:Pathological abnormalities or Markers of kidney damage (including abnormalities in the composition of the blood or urine or abnormalities in imaging tests). Lab Interpretation Abnormal (test code = 13157-7) [facility] [id number] 15:48:00 Test Item Value Reference Range Interpretation Comments POCT Glu (age>30days) (test code = 327 mg/dL 70-110 A 3342) Lab Interpretation (test code = Abnormal 51378-2) [facility] GLUCOSE(AGE 0-30DAYS)2019-03-27 16:31:00 Test Item Value Reference Range Interpretation Comments POCT Glu (age 0-30days) (test code 270 mg/dl 40-110 A = 3343) Lab Interpretation (test code = Abnormal 32983-4) [facility] WITH [id number] 14:20:00 Test Item Value Reference Range Interpretation Comments WBC (test code = See_Comment [Automated 4751-2) message] The sy stem which generated this result transmitted reference range : 4.20 - 10.70 10*3/?L. The reference range was not used to interpret this result as normal/abnormal . RBC (test code = See_Comment L [Automated 789-8) message] The sy stem which generated this result transmitted reference range : 4.26 - 5.52 10*6/?L. The reference range was not used to interpret this result as normal/abnormal . HGB (test code = 12.1 g/dL 12.2-16.4 L 718-7) HCT (test code = 35.7 % 38.4-49.3 L 4544-3) MCV (test code = 86.9 fL 81.7-95.6 787-2) MCH (test code = 29.4 pg 26.1-32.7 785-6) MCHC (test code = 33.9 g/dL 31.2-35 786-4) RDW-SD (test code = 42.0 fL 38.5-51.6 69541-9) RDW-CV (test code = 13.5 % 12.1-15.4 788-0) PLT (test code = See_Comment [Automated 777-3) message] The sy stem which generated this result transmitted reference range : 150 - 328 10*3/ ?L. The reference r jesse was not used to interpret this result as normal/abnormal . MPV (test code = 10.3 fL 9.8-13 54092-7) NRBC/100 WBC (test See_Comment [Automat ed code = 5794239426) message] The system which generated this result transmitted reference range : 0.0 - 10.0 /100 WBCs. The refer ence range was not u sed to interpret th is result as normal/abnormal . NRBC x10^3 (test code See_Comment [Auto mated = 4248078124) message] The s ystem which generated this result transmitted reference range : 10*3/?L. The reference range was not used to interpret this result as normal/abnormal . GRAN MAT (NEUT) % 71.8 % (test code = 770-8) IMM GRAN % (test code 0.90 % = 9618816404) LYMPH % (test code = 17.0 % 736-9) MONO % (test code = 6.2 % 5905-5) EOS % (test code = 3.7 % 713-8) BASO % (test code = 0.4 % 706-2) GRAN MAT x10^3(ANC) 6.71 10*3/uL 1.99-6.95 (test code = 0036476057) IMM GRAN x10^3 (test 0.08 10*3/uL 0-0.06 H code = 7227342516) LYMPH x10^3 (test code 1.59 10*3/uL 1.09-3.23 = 731-0) MONO x10^3 (test code 0.58 10*3/uL 0.36-1.02 = 742-7) EOS x10^3 (test code = 0.35 10*3/uL 0.06-0.53 711-2) BASO x10^3 (test code 0.04 10*3/uL 0.01-0.09 = 704-7) Lab Interpretation Abnormal (test code = 34735-2) [facility] METABOLIC PANEL (NA, K, CL, CO2, GLUCOSE, BUN, CREATININE, CA)2019-03-27 14:07:00 Test Item Value Reference Range Interpretation Comments NA (test code = 141 mmol/L 135-145 4713917627) K (test code = 4.5 mmol/L 3.5-5 9578483887) CL (test code = 102 mmol/L 98-108 2303962127) CO2 TOTAL (test code = 27 mmol/L 23-31 1526530555) AGAP (test code = 2-16 5486838007) BUN (test code = 44 mg/dL 7-23 H 5010706684) GLUCOSE (test code = 291 mg/dL 70-110 H 9997669619) CREATININE (test code = 7.35 mg/dL 0.6-1.25 H 2601093311) CALCIUM (test code = 9.5 mg/dL 8.6-10.6 7068444429) eGFR Calculation mL/min/1.73m2 (Non-) (test code = 9155628217) eGFR Calculation mL/min/1.73m2 () (test code = 0845029657) CRISTIANA (test code = CRISTIANA) Association of Glomerular Filtration Rate (GFR) and Staging of Kidney Disease*+ + + +| GFR (mL/min/1.73 m2)?| With Kidney Damage?|?Without Kidney Damage+ --------+ --------+ +|?>90?|?S tage one?|? Normal?+ ---------+ ---------+ +|?60-89? |?Stage two?|? Decreased GFR? + --+ --+ ------+|?30-59?|?Stage three?|? Stage three? + --+ --+ ------+|?15-29?|?Stage four? |? Stage four?+ -------+ -------+ +|?<15 (or dialysis)?|?Stage five? |? Stage five?+ -------+ -------+ +*Each stage assumes the associated GFR level has been in effect for at least three months.?Stages 1 to 5, with or without kidney disease, indicate chronic kidney disease.Notes: Determination of stages one and two (with eGFR >59mL/min/1.73 m2) requires estimation of kidney damage for at least three months as defined by structural or functional abnormalities of the kidney, manifested by either:Pathological abnormalities or Markers of kidney damage (including abnormalities in the composition of the blood or urine or abnormalities in imaging tests). Lab Interpretation Abnormal (test code = 79294-3) [facility]
--- NOTE | 2021-06-02 17:07 | RAD REPORT ---
EXAM DESCRIPTION: RAD - Foot Left 3 View - 06/02/2021 4:46 pm CLINICAL HISTORY: Left Foot pain and swelling FINDINGS: No fracture or dislocation is seen. Soft tissue ulceration along the dorsal aspect of the forefoot. No underlying bony destructive lesion s seen. Vascular calcifications
[2021-06-02 18:09] LABS: Absolute Lymphocytes (CBC) 1.4 K/uL (0.7-4.9); Basophils % 0.4 % (0-1.3); Hematocrit 31.6 % (39.6-49.0); Lymphocytes % 15.2 % (15.3-44.8); MPV 7.7 fL (7.6-11.3); RBC Red Blood Cell Count 3.89 M/uL (4.33-5.43)
[2021-06-02 18:10] LABS: Protime INR 0.97
[2021-06-02 18:27] LABS: Albumin 3.3 g/dL (3.4-5.0); Bilirubin Direct 0.1 mg/dL (0-0.2); Bilirubin Total 0.6 mg/dL (0.2-1.0); Potassium 4.4 mmol/L (3.5-5.1); Protein, Total 9.3 g/dL (6.4-8.2)
[2021-06-02] MEDS ORDERED: VANCOMYCIN 1 GM/VIAL ONE (19:43)
[2021-06-02] MEDS ORDERED: NA CHLORIDE 0.9% 250 ML ONE (19:44)
[2021-06-02] MEDS ORDERED: INSULIN -REGULAR HUMAN 50 UNIT/0.5 ML ML ONE (19:51)
--- NOTE | 2021-06-02 21:07 | ER ---
Nurse's Notes [facility] Name: Nikita Bartlett Age: 45 yrs Sex: Male : 1975 Arrival Date: 06/02/2021 Time: 12:53 Bed 23 Private MD: Diagnosis: Ulceration of left foot Presentation: 06/02 13:32 Chief complaint: Patient states: Here to have wound to L foot checked for possible ss infection. Pt states, "possible diabetic foot ulcer.". Coronavirus screen: Client denies travel out of the [place] in the last 14 days. Ebola Screen: Patient denies exposure to infectious person. Patient denies travel to an Ebola-affected area in the 21 days before illness onset. Initial Sepsis Screen: Does the patient meet any 2 criteria? No. Patient's initial sepsis screen is negative. Does the patient have a suspected source of infection? No. Patient's initial sepsis screen is negative. Risk Assessment: Do you want to hurt yourself or someone else? Patient reports no desire to harm self or others. Onset of symptoms was June 01, 2021. 13:32 Method Of Arrival: Ambulatory ss 13:32 Acuity: OCTAVIO 3 ss Triage Assessment: 19:30 General: Appears in no apparent distress. Behavior is calm, cooperative. bb Historical: - Allergies: 13:34 No Known Allergies; ss - PMHx: 13:34 "Leaking heart valve"; Anemia; Diabetes - NIDDM; Dialysis; Enlarged Heart; ss osteomyolitis; Hypertension; - Immunization history:: Client reports having NOT received the Covid vaccine. - Social history:: Smoking status: Patient denies any tobacco usage or history of. Screenin:30 Fall Risk None identified. bb 22:28 Abuse screen: Denies threats or abuse. Denies injuries from another. Nutritional ss screening: No deficits noted. Tuberculosis screening: Never had TB. Assessment: 19:30 General: Appears Behavior is calm, cooperative. Pain: Complains of pain in left foot. bb Neuro: Level of Consciousness is awake, alert, obeys commands, Oriented to person, place, time, situation. Cardiovascular: Capillary refill < 3 seconds Patient's skin is warm and dry. Respiratory: Respiratory effort is even, unlabored, Respiratory pattern is regular. GI: Abdomen is round. Derm: Skin is pink, warm \\T\\ dry. Musculoskeletal: Circulation, motion, and sensation intact. Reports pain in left foot. 20:30 Reassessment: Patient is alert, oriented x 3, equal unlabored respirations, skin bb warm/dry/pink. IV site intact, patent, with fluids infusing. 22:28 Reassessment: Patient appears in no apparent distress at this time. Patient and/or ss family updated on plan of care and expected duration. Pain level reassessed. Patient is alert, oriented x 3, equal unlabored respirations, skin warm/dry/pink. Patient states feeling better. Neuro: Level of Consciousness is awake, alert, obeys commands. Respiratory: Respiratory effort is even, unlabored. Vital Signs: 13:32 BP 156 / 97; Pulse 65; Resp 18; Temp 98.1(O); Pulse Ox 99% on R/A; Weight 115 kg; Height 5 ft. 10 in. (177.80 cm); Pain 0/10; 17:59 BP 154 / 97; Pulse 67; Resp 17; Temp 98.6(O); Pulse Ox 100% on R/A; mh5 19:25 BP 161 / 91; Pulse 69; Resp 16; Temp 98.1(O); Pulse Ox 99% ; lt3 22:25 BP 169 / 94; Pulse 70; Resp 17; Pulse Ox 98% on R/A; ss 13:32 Body Mass Index 36.38 (115.00 kg, 177.80 cm) ED Course: 12:53 Patient arrived in ED. kc5 13:34 Triage completed. ss 13:34 Arm band placed on right wrist. 14:44 Kareem Brower PA is PHCP. cp 14:44 Paulino Barth MD is Attending Physician. cp 16:46 XRAY Foot LEFT 3 View In Process Unspecified. EDMS 17:45 Initial lab(s) drawn, by me, sent to lab. First set of blood cultures drawn by me. 5 17:53 Wound Culture Sent. 5 17:53 Blood Culture Adult (2) Sent. 5 17:53 Procalcitonin Sent. 5 17:53 Lactate Sent. 5 17:53 Basic Metabolic Panel Sent. 5 17:53 CBC with Diff Sent. 5 17:53 LFT's Sent. 5 17:53 PT-INR Sent. mh5 17:53 Inserted saline lock: 20 gauge in right antecubital area, using aseptic technique. [facility] Blood collected. 17:54 Patient has correct armband on for positive identification. Bed in low position. Call [facility] light in reach. Side rails up X 1. cafeteria monitor on. Pulse ox on. NIBP on. 19:17 Celeste Varela FNP-C is [facility]. kb 19:17 Kiko De La Cruz MD is Attending Physician. kb 22:28 No provider procedures requiring assistance completed. IV discontinued, intact, ss bleeding controlled, No redness/swelling at site. Pressure dressing applied. Administered Medications: 19:57 Not Given (Physician Discretion): Insulin Regular Human 10 units IVP once bb 19:58 Drug: vancoMYCIN 1 grams Route: IVPB; Infused Over: 2 hrs; Site: right antecubital; bb 22:00 Follow up: IV Intake: 250ml bb 22:28 Follow up: IV Status: Completed infusion 19:58 Drug: Insulin Regular Human 5 units {Co-Signature: lolis (Kathi Villegas RN).} Route: IVP; bb Site: right antecubital; 20:00 Follow up: Response: No adverse reaction bb Intake: 22:00 IV: 250ml; Total: 250ml. bb Outcome: 21:06 Discharge ordered by . kb 22:28 Discharged to home ambulatory. 22:28 Condition: good 22:28 Discharge instructions given to patient, Instructed on discharge instructions, follow up and referral plans. medication usage, Demonstrated understanding of instructions, follow-up care, medications, Prescriptions given X 2. 22:32 Patient left the ED. ss Addendum: 06/10/2021 18:00 Addendum: Culture Results: Positive wound culture. Phone call Attempt #1 Attempted to s s call patient, no answer. Left VM. Signatures: Dispatcher [employer] EDMS Celeste Varela FNP-C FNP-Ckb Ballard, Brenda, RN RN bb Smirch, Shelby, RN RN ss Page, Corey, PA PA cp Martinez, Maria 5 Brandy Sigala kc5 Darby Cornell lt3 Kathi danielle Corrections: (The following items were deleted from the chart) 06/02 22:58 20:30 Reassessment: Patient is alert, oriented x 3, equal unlabored respirations, skin bb warm/dry/pink. bb
--- NOTE | 2021-06-02 21:07 | EDPHYS ---
Physician Documentation [facility] Name: Nikita Bartlett Age: 45 yrs Sex: Male : 1975 Arrival Date: 06/02/2021 Time: 12:53 Bed 23 Private MD: [place] Physician Kiko De La Cruz HPI: 06/02 15:05 This 45 yrs old Male presents to ER via Ambulatory with complaints of Wound Infection - cp [facility] PT. 15:05 The patient presents with swelling, erythema. cp 15:05 The complaints affect the lateral aspect of left foot. Onset: The symptoms/episode cp began/occurred gradually. Reports drainage from wound on left foot today. Historical: - Allergies: 13:34 No Known Allergies; ss - PMHx: 13:34 "Leaking heart valve"; Anemia; Diabetes - NIDDM; Dialysis; Enlarged Heart; ss osteomyolitis; Hypertension; - Immunization history:: Client reports having NOT received the Covid vaccine. - Social history:: Smoking status: Patient denies any tobacco usage or history of. ROS: 15:10 Skin: Positive for of the lateral aspect of left foot, wound. cp 15:10 Constitutional: Negative for body aches, chills, fever, poor PO intake. cp 15:10 Respiratory: Negative for cough, shortness of breath, wheezing. 15:10 Neuro: Negative for dizziness, headache, weakness. 15:10 All other systems are negative. 21:08 Constitutional: Negative for fever, chills, and weight loss. kb Exam: 15:15 Constitutional: The patient appears in no acute distress, alert, awake, non-toxic, well cp developed, well nourished, obese. 15:15 Head/Face: Normocephalic, atraumatic. cp 15:15 Chest/axilla: Inspection: normal. 15:15 Cardiovascular: Rate: normal. 15:15 Respiratory: the patient does not display signs of respiratory distress, Respirations: normal, no use of accessory muscles, no retractions, labored breathing, is not present. 15:15 Skin: cellulitis, that is mild, irregular, on the left foot. 15:15 Neuro: Orientation: to person, place \\T\\ time. Mentation: is normal. Vital Signs: 13:32 BP 156 / 97; Pulse 65; Resp 18; Temp 98.1(O); Pulse Ox 99% on R/A; Weight 115 kg; ss Height 5 ft. 10 in. (177.80 cm); Pain 0/10; 17:59 BP 154 / 97; Pulse 67; Resp 17; Temp 98.6(O); Pulse Ox 100% on R/A; mh5 19:25 BP 161 / 91; Pulse 69; Resp 16; Temp 98.1(O); Pulse Ox 99% ; lt3 22:25 BP 169 / 94; Pulse 70; Resp 17; Pulse Ox 98% on R/A; ss 13:32 Body Mass Index 36.38 (115.00 kg, 177.80 cm) ss MDM: 19:17 Patient medically screened. kb 19:38 Data reviewed: vital signs, nurses notes. Data interpreted: Pulse oximetry: on room air kb is 99 %. Interpretation: normal. Counseling: I had a detailed discussion with the patient and/or guardian regarding: the historical points, exam findings, and any diagnostic results supporting the discharge/admit diagnosis, lab results, radiology results, the need for outpatient follow up, a family practitioner, a general surgeon, to return to the emergency department if symptoms worsen or persist or if there are any questions or concerns that arise at home. 20:47 ED course: Blister noted to lateral side of foot, ulceration noted to ball of foot. No kb redness or swelling noted. x-ray does not reveal any osteomyelitis. Pt has no fever, is nontoxic in appearance. Will discharge home on antibiotics to follow up with wound care. Pt in agreement with plan of care. 06/02 15:28 Order name: Basic Metabolic Panel; Complete Time: 19:17 cp 06/02 15:28 Order name: CBC with Diff; Complete Time: 19:17 cp 06/02 15:28 Order name: LFT's; Complete Time: 19:17 cp 06/02 15:28 Order name: PT-INR; Complete Time: 19:17 cp 06/02 15:28 Order name: Procalcitonin; Complete Time: 19:17 cp 06/02 15:28 Order name: Lactate; Complete Time: 19:17 cp 06/02 15:28 Order name: Cardiac monitoring; Complete Time: :26 cp 06/02 15:28 Order name: XRAY Foot LEFT 3 View; Complete Time: 17:42 cp 06/02 17:42 Interpretation: Reviewed report. 06/02 15:28 Order name: Blood Culture Adult (2) 06/02 15:28 Order name: Wound Culture 06/02 19:59 Order name: Glucose, Ancillary Testing; Complete Time: 20:16 EDAR 06/02 15:28 Order name: IV Saline Lock; Complete Time: 17:53 06/02 15:28 Order name: Labs collected and sent; Complete Time: 17:53 06/02 15:28 Order name: O2 Per Protocol; Complete Time: 17:54 06/02 15:28 Order name: O2 Sat Monitoring; Complete Time: 17:54 cp Administered Medications: 19:57 Not Given (Physician Discretion): Insulin Regular Human 10 units IVP once bb 19:58 Drug: vancoMYCIN 1 grams Route: IVPB; Infused Over: 2 hrs; Site: right antecubital; bb 22:00 Follow up: IV Intake: 250ml bb 22:28 Follow up: IV Status: Completed infusion 19:58 Drug: Insulin Regular Human 5 units {Co-Signature: ss (Kathi Villegas RN).} Route: IVP; bb Site: right antecubital; 20:00 Follow up: Response: No adverse reaction bb Disposition: 06/03 06:10 Co-signature as Attending Physician, Kiko De La Cruz MD. [email or web address] Disposition Summary: 06/02/21 21:06 Discharge Ordered Location: Home kb Condition: Stable kb Diagnosis - Ulceration of left foot kb Followup: kb - With: Emergency Department - When: As needed - Reason: Worsening of condition Followup: kb - With: Private Physician - When: 2 - 3 days - Reason: Recheck today's complaints, Continuance of care, Re-evaluation by your physician Discharge Instructions: - Discharge Summary Sheet kb - Wound Infection, [id number] kb Forms: - Medication Reconciliation Form kb - Thank You Letter kb - Antibiotic Education kb - Prescription Opioid Use kb Prescriptions: - Cephalexin 500 mg Oral Capsule - take 1 capsule by ORAL route every 12 hours for 10 days; 20 capsule; Refills: kb 0, Product Selection Permitted - Bactrim DS 800-160 mg Oral Tablet - take 1 tablet by ORAL route once daily for 10 days; 10 tablet; Refills: 0, kb Product Selection Permitted Signatures: Dispatcher [employer] EDCeleste Oliveira SEXOLOGIST-C SEXOLOGIST-CkFlor Ag RN RN bb Kathi Villegas RN RN ss Kareem Brower PA PA cp Holmes, Maurice, MD MD [email or web address] Kathi Villegas RN ss Corrections: (The following items were deleted from the chart) 06/02 18:38 15:40 Skin: Positive for of the lateral aspect of left foot, wound, cp cp 20:50 20:47 ED course: Blister noted to lateral side of foot, ulceration noted to ball of kb foot. No redness or swelling noted. x-ray does not reveal any osteomyelitis. Pt has no fever, is nontoxic in appearance. Will discharge home on antibiotics to follow up with wound care. . kb
[2021-06-02 22:56] VITALS: BP 161/91; TEMP 98.1; O2SAT 99
== END 2021-06-02 22:32 | disposition home or self-care (01) ==
LOC: ER 12:48
DX: E11.621 Type 2 diabetes mellitus with foot ulcer (principal); I10 Essential (primary) hypertension; Z99.2 Dependence on renal dialysis
CPT/HCPCS: 96365; 87040 ×2; 87070; 85025; 80048; 36415; 87205; 85610; 82947; 80076; 83605; 87077; 87186; 84145; 73630; 96375; 99284; 96366; J3370; J7050

== ENCOUNTER 2021-11-04 06:36 | Emergency (ER) | payer OTHER ==
--- OUTSIDE RECORDS SUMMARY | 2021-11-04 06:40 | XMS REPORT | Continuity of Care Document ---
:1975 Author Organization [facility] t Address [address] [place] [address] Care Team Providers Name Role Phone Matt Davis DO Primary Care Physician Nilda Davis Attending Clinician Unavailable NEIL Attending Clinician Unavailable Neil GOSS Attending Clinician Only, Test Attending Clinician Unavailable Doctor Unassigned, Name Attending Clinician Unavailable Elfego BLANKENSHIP, Emmy Attending Clinician NEIL Admitting Clinician Unavailable Neil GOSS Admitting Clinician Payers Payer Name Policy Type Policy Number Effective Date Expiration Date S [facility] MEDICARE PART A \\T\\ [id number] 2019 B 00:00:00 [employer] [id number] 2020 BENEFITS 00:00:00 [facility] [id number] 2017 00:00:00 Problems Condition Condition Condition Status Onset Resolution Last Treating Co mments Source Name Details Category Date Date Treatment Clinician Date ESRD (end ESRD (end Disease Active Overview: Methodi stage stage 03-[address] renal renal 00:00: g of this Hospita disease) disease) 00 note l might be different from the original. Added automatic ally from request for surgery [id number] Anemia of Anemia of Disease Active Met hodi chronic chronic 03-08 st disease disease 00:00: Hospita 00 l Type 2 Type 2 Disease Active Methodi diabetes diabetes 03-08 st mellitus mellitus 00:00: Hospit a 00 l Infection Infection Disease Active Overview: Univers associated associated 01-27 Added it y of with with 00:00: automatic [place] peritoneal peritoneal 00 ally from Medical dialysis dialysis request Branc h catheter, catheter, for initial initial surgery encounter encounter [id number] Obesity Obesity Disease Active Methodi (BMI (BMI 03-27 st 30-39.9) 30-39.9) 00:00: Hospit a 00 l ESRD (end ESRD (end Disease Active Overview: Univers stage stage 03-13 Added ity of renal renal 00:00: automatic [place] disease) disease) 00 ally from Med ical on on request Branch dialysis dialysis for surgery [id number] Tobacco Tobacco Disease Active Univers use use 07-16 ity of disorder disorder 00:00: [place] 00 Medical Branch 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 07-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 diabetes 00:00: [place] mellitus mellitus 00 Medica l without without Branch complicati complicati on, with on, with long-term long-term current current use of use of insulin insulin Essential Essential Disease Active Met hodi hypertensi hypertensi 07-16 st on on 00:00: Hospita 00 l Hypertrigl Hypertrigl Disease Active M ethodi yceridemia yceridemia 07-16 00:00: Hospita 00 l Allergies, Adverse Reactions, Alerts Allergy Allergy Status Severity Reaction(s) Onset Inactive Treating Comm ents Source Name Type Date Date Clinician NO KNOWN Drug Active Univers ALLERGIE Class ity of S [facility] Family History Family Member Diagnosis Comments Start Date Stop Date Source Natural father Diabetes [facility] Natural father Multiple myeloma Meth [facility] mother Diabetes [facility] Natural mother Hypertension [facility] Social History Social Habit Start Date Stop Date Quantity Comments Source Exposure to Not sure University of SARS-CoV-2 (event) [facility] History of tobacco Chews Tobacco Met [facility]odist use [facility] Alcohol intake 2020-03-17 2020-03-17 Ex-drinker [facility] 00:00:00 00:00:00 (finding) [facility] Cigarette 2020-03-08 2020-03-08 [facility] pack-years 00:00:00 00:00:00 Hospital Tobacco use and 2020-03-08 2020-03-08 Former smokeless Met [facility] exposure 00:00:00 00:00:00 tobacco user Hospital Cigarettes smoked 2020-03-08 2020-03-[address] current (pack per 00:00:00 00:00:00 Hospita l day) - Reported Tobacco Comment 2016-07-16 2016-07-16 1-2 packs daily Univ ersity of 00:00:00 00:00:00 sometimes; other [facility] dical times could be 1 Branch week. ; chewing tobacco - 25 years; 1 can every other day. Alcohol Comment 2016-07-16 2016-07-16 occasional Universit y of 00:00:00 00:00:00 [facility] Sex Assigned At [birth year] [facility] 00:00:00 00:00:00 Hospital Smoking Status Start Date Stop Date Source Former smoker 2020-02-09 00:00:00 2020-02-09 00:00:00 [facility] Current every day 2018-01-06 00:00:00 [facility] [place] Medications Ordered Filled Start Stop Current Ordering Indication Dosage Frequency Signature Comments Components Source Medication Medication Date Date Medication? Clinician (SIG) Name Name aspirin 81 2019-07 Yes Chew. Method i mg chewable 0-20 st tablet 10:39: Hospita 55 l liraglutide 2019-07 Yes 1.2mg QD Inject 1.2 Methodi (VICTOZA) 0-[address] 0.6 mg/0.1 10:39: the skin Hos [facility]ster mL (18 mg/3 55 daily. l mL) pen injector linaGLIPtin 2019-07 Yes 5mg QD Take 5 mg M ethodi (TRADJENTA) 0-[address] 5 mg tablet 10:39: daily. [facility] 55 l loratadine 2019-07 Yes 10mg QD Take 10 mg M ethodi (CLARITIN) 0-[address] 10 mg 10:39: daily. Hospita tablet 55 l cholecalcif 2019-07 Yes Take by Met marycarmen chadd, 0-[address] vitamin D3, 10:39: Hospit a (Vitamin 55 l D3) 125 mcg (5,000 unit) tablet insulin 2019-07 Yes Inject Methodi glargine,hu 0-[address] m.rec.anlog 10:39: skin. Hospi ta (TOUJEO MAX 55 l U-300 SOLOSTAR SUBQ) BABY 2020-0 Yes Take by Univers ASPIRIN 7-24 mouth. ity of ORAL 20:26: [place] [address] Medical Branch Cholecalcif 2020-0 Yes Take by Un denise chadd, 7-24 mouth. ity of Vitamin D3, 20:26: [place] (VITAMIN 37 Medical D3) 5,000 Branch unit tablet loratadine 2020-0 Yes 10mg Take 10 mg U nivers (CLARITIN) 7-24 by mouth ity o f 10 mg 20:26: daily. [place] tablet Medical Branch liraglutide 2020-0 Yes inject Univ ers (VICTOZA 7-24 under the ity of 2-FRANS[place]CO [place]) 20:26: skin. [place] [address] Medical Branch BABY 2020-0 Yes Take by Univers ASPIRIN 7-24 mouth. ity of ORAL 20:26: [place] [address] Medical Branch Cholecalcif 2020-0 Yes Take by Un denise chadd, 7-24 mouth. ity of Vitamin D3, 20:26: [place] (VITAMIN 37 Medical D3) 5,000 Branch unit tablet loratadine 2020-0 Yes 10mg Take 10 mg U nivers (CLARITIN) 7-24 by mouth ity o f 10 mg 20:26: daily. [place] tablet Medical Branch liraglutide 2020-0 Yes inject Univ ers (VICTOZA 7-24 under the ity of 2-FRANSISCO [place]) 20:26: skin. [place] [address] Medical Branch BABY 2020-0 Yes Take by Univers ASPIRIN 7-24 mouth. ity of ORAL 20:26: [place] [address] Medical Branch Cholecalcif 2020-0 Yes Take by Un denise chadd, 7-24 mouth. ity of Vitamin D3, 20:26: [place] (VITAMIN 37 Medical D3) 5,000 Branch unit tablet loratadine 2020-0 Yes 10mg Take 10 mg U nivers (CLARITIN) 7-24 by mouth ity o f 10 mg 20:26: daily. [place] tablet Medical Branch liraglutide 2020-0 Yes inject Univ ers (VICTOZA 7-24 under the ity of 2-FRANSISCO [place]) 20:26: skin. [place] [address] Medical Branch lactated 2020-0 Yes 1000mL at 75 Univer s ringers IV 7-24 mL/hr, ity of infusion 19:45: 1,000 [place] 1[place]000 [place] 00 IV Medical Infusion, Branch CONTINUOUS , Starting Sat01/29/20 at 1445, Until Discontinu ed, Routine, PACU FENTanyl PF 2020-0 Yes 25ug 25 mcg, Uni vers (SUBLIMAZE 7-24 Slow IV ity of (PF)) 19:32: Push, [place] injection 11 Q5MIN PRN, Medi stacey 25 mcg 4 doses, Branch Starting Sat01/29/20 at 1432, Until Discontinu ed, Routine, Pain (scale 4-6), PACU ondansetron 2020-0 Yes 4mg 4 mg, Slow Univers (ZOFRAN 7-24 IV Push, ity of (PF)) 19:32: PRN, 1 [place] injection 4 11 dose, Medical mg Starting Branch Sat01/29/20 at 1432, Until Discontinu ed, Routine, Nausea and Vomiting (N/V), PACU BABY 2020-0 Yes Take by [facility] ASPIRIN 7-24 mouth. ity of ORAL 19:29: [address] Cholecalcif 2020-0 Yes Take by Un denise chadd, 7-24 mouth. ity of Vitamin D3, 19:29: [place] (VITAMIN [address] [place] [address] D3) 5,000 [place] unit tablet loratadine 2020-0 Yes 10mg Take 10 mg U nivers (CLARITIN) 724 by mouth ity o f 10 mg 19:29: daily. [address] liraglutide 2020-0 Yes inject Univ ers (VICTOZA 01-28 under the ity of 2-FRANSISCO [place]) 19:29: skin. [address] lactated 2020-0 2020- No 1000mL at 20 Unive rs ringers IV 7-24 07-24 mL/hr, ity of infusion 16:00: 16:03 1,000 mL, [place] 1,000 mL 00 :00 IV Medical Infusion, Branch ONCE, 1 dose, Sat01/29/20 at 1100, Routine, DSU Pre-op ceFAZolin 2020-0 Yes 1000mg 1,000 mg, U nivers (ANCEF) 7-24 IV ity of 1,000 mg in 15:30: Piggyback, [place] NaCl 0.9% 08 O.R. Medical (NS) 50 mL HOLDING Branch MINI-BAG ONCE, 1 dose, Starting Sat01/29/20 at 1030, Until Discontinu ed, 50 mL, DSU Pre-op
Reason for Anti-Infec tive: Surgical Prophylaxi s
Surgi stacey Prophylaxi s: Abdominal< br>Duratio n of therapy: within 24 hours of surgery BABY 2020-0 Yes Take by Univers ASPIRIN 7-24 mouth. ity of ORAL 13:26: [place] [address] Medical Branch Cholecalcif 2020-0 Yes Take by Un denise chadd, 7-24 mouth. ity of Vitamin D3, 13:26: [place] (VITAMIN 51 Medical D3) 5,000 Branch unit tablet loratadine 2020-0 Yes 10mg Take 10 mg U nivers (CLARITIN) 724 by mouth ity o f 10 mg 13:26: daily. [place] tablet Medical Branch liraglutide 2020-0 Yes inject Univ ers (VICTOZA - under the ity of 2-[place]) 13:26: skin. [place] [address] Medical Branch Cholecalcif 2020-0 Yes Take by Un denise chadd, 7- mouth. ity of Vitamin D3, 18:22: [place] (VITAMIN 12 Medical D3) 5,000 Branch unit tablet loratadine 2020-0 Yes 10mg Take 10 mg U nivers (CLARITIN) - by mouth ity o f 10 mg 18:22: daily. [place] tablet Medical Branch liraglutide 2020-0 Yes inject Univ ers (VICTOZA 01-27 under the ity of 2-[place]) 18:22: skin. [place] [address] Medical Branch Cholecalcif 2020-0 Yes Take by Un denise chadd, 01-27 mouth. ity of Vitamin D3, 18:22: [place] (VITAMIN 12 Medical D3) 5,000 Branch unit tablet loratadine 2020-0 Yes 10mg Take 10 mg U nivers (CLARITIN) - by mouth ity o f 10 mg 18:22: daily. [place] tablet Medical Branch liraglutide 2020-0 Yes inject Univ ers (VICTOZA - under the ity of 2-[place]) 18:22: skin. [place] [address] Medical Branch fluconazole 2020-0 Yes 200mg Take 200 U nivers 200 mg 7-22 mg by ity of tablet 00:00: mouth [place] 00 daily. Medical Branch fluconazole 2020-0 Yes 200mg Take 200 U nivers 200 mg 7-22 mg by ity of tablet 00:00: mouth [place] 00 daily. Medical Branch fluconazole 2020-0 Yes 200mg Take 200 U nivers 200 mg 7-22 mg by ity of tablet 00:00: mouth 00 daily. Medical Branch fluconazole 2020-0 Yes 200mg Take 200 U nivers 200 mg 7-22 mg by ity of tablet 00:00: mouth 00 daily. Medical Branch fluconazole 2020-0 Yes 200mg Take 200 U nivers 200 mg 7-22 mg by ity of tablet 00:00: mouth [place] 00 daily. Medical Branch VICTOZA 2020-0 2020- No [...] glimepiride 2020-0 Yes 4mg Take 4 mg M ethodi (AMARYL) 4 7-[address] MG tablet 00:00: Hospita 00 l sulfamethox 2020-0 Yes 1{tbl} Take 1 Un [...] Units to ity of ointment 00:00: affected [place] 00 area(s) Medical daily. Branch Apply a [...] meals. calcium 2020-0 Yes 667mg Take 667 Metho di acetate,joshua 1-[address] sphat bind, 00:00: mouth. [facility] (PHOSLO) 00 l 667 mg capsule BABY 2018-07 Yes Take by Univers ASPIRIN 2-30 mouth. ity of ORAL 19:59: [address] Branch Cholecalcif 2018-07 Yes Take by Un denise chadd, 2-30 mouth. ity of Vitamin D3, 19:59: [place] (VITAMIN Medical D3) 5,000 Branch unit tablet loratadine 2018-07 Yes 10mg Take 10 mg U nivers (CLARITIN) 2-30 by mouth ity o f 10 mg 19:59: daily. [place] [address] Medical Branch liraglutide 2018-07 Yes inject Univ ers (VICTOZA 2-30 under the ity of 2-[place]) 19:59: skin. [address] BABY 2018-07 Yes Take by Univers ASPIRIN 2-30 mouth. ity of ORAL 19:59: [address] Cholecalcif 2018-07 Yes Take by Un denise chadd, 2-30 mouth. ity of Vitamin D3, 19:59: [place] (VITAMIN Medical D3) 5,000 Branch unit tablet loratadine 2018-07 Yes 10mg Take 10 mg U nivers (CLARITIN) 2-30 by mouth ity o f 10 mg 19:59: daily. [place] [address] Medical Branch liraglutide 2018-07 Yes inject Univ ers (VICTOZA 2-30 under the ity of 2-[place]) 19:59: skin. [address] BABY 2018-07 Yes Take by Univers ASPIRIN 2-30 mouth. ity of ORAL 19:59: [address] BABY 2018-07 Yes Take by Univers ASPIRIN 2-30 mouth. ity of ORAL 19:59: [address] traMADol 50 2018-07 Yes [id number] 50mg Take 1 Univers mg tablet 2-30 tablet by ity o f 00:00: mouth [place] 00 every 6 Medical (six) Branch hours as needed for Pain (scale 7-10). traMADol 50 2018- Yes [id number] 50mg Take 1 Univers mg tablet 2-30 tablet by ity o f 00:00: mouth [place] 00 every 6 Medical (six) Branch hours as needed for Pain (scale 7-10). traMADol 50 2018- Yes [id number] 50mg Take 1 Univers mg tablet 2-30 tablet by ity o f 00:00: mouth [place] 00 every 6 Medical (six) Branch hours as needed for Pain (scale 7-10). traMADol 50 2018-07 Yes [id number] 50mg Take 1 Univers mg tablet 2-30 tablet by ity o f 00:00: mouth [place] 00 every 6 Medical (six) Branch hours as needed for Pain (scale 7-10). traMADol 50 2018-07 Yes [id number] 50mg Take 1 Univers mg tablet 2-30 tablet by ity o f 00:00: mouth [place] 00 every 6 Medical (six) Branch hours as needed for Pain (scale 7-10). traMADol 50 2018-07 2020- No [id number] 50mg Take 1 Univers mg tablet 2-30 07-24 tablet by ity of 00:00: 00:00 mouth [place] 00 :00 every 6 Medical (six) Branch hours as needed for Pain (scale 7-10). [facility] [place] 2018- Yes [place] [address] [facility] [address] 09/20" 09/20" 0-02 [facility] with [facility] 00 [facility] BABY 2018- Yes Take by Univers ASPIRIN 9-20 mouth. ity of ORAL 18:03: [place] [address] Medical Branch Cholecalcif 2018- Yes Take by Un denise chadd, 9-20 mouth. ity of Vitamin D3, 18:03: [place] (VITAMIN [address] [place] [address] D3) 5,000 Branch unit tablet loratadine 2018- Yes 10mg Take 10 mg U nivers (CLARITIN) 9-20 by mouth ity o f 10 mg 18:03: daily. [place] [address] Medical Branch liraglutide 2018- Yes inject Univ ers (VICTOZA -20 under the ity of 2-[place]) 18:03: skin. [place] [address] Medical Branch morpHINE 2019-0 Yes 4mg 4 mg, Slow Uni vers injection 4 -20 IV Push, ity of mg 16:25: Q5MIN PRN, [place] 03 3 doses, Medical Starting Branch 03/27/19 at 1125, Until Discontinu ed, Routine, Pain (scale 7-10), PACU FENTanyl PF 2018- Yes 50ug 50 mcg, Uni vers (SUBLIMAZE 9-20 Slow IV ity of (PF)) 16:25: Push, [place] injection 03 Q5MIN PRN, Medi stacey 50 mcg 4 doses, Branch Starting 03/27/19 at 1125, Until Discontinu ed, Routine, Pain (scale 4-6), PACU ondansetron 2018-0 Yes 4mg 4 mg, Slow Univers (ZOFRAN -20 IV Push, ity of (PF)) 16:25: PRN, 1 [place] injection 4 03 dose, Medical mg Starting Branch Sat03/27/19 at 1125, Until Discontinu ed, Routine, Nausea and Vomiting (N/V), PACU bupivacaine 2019-0 Yes PRN, Univer s -epinephrin 03-27 Starting ity of e-pf 15:56: Fri [place] (SENSORCAIN 00 03/27/19 at Wi dical E 1056, Branch W/EPINEPHRI Until NE) 0.25 Discontinu %-1:200,000 ed, injection Routine, Intra-op lidocaine 2019-0 Yes PRN, Univers 1% (PF) 03-27 Starting ity of (XYLOCAINE) 15:34: Fri [place] injection 00 03/27/19 at [facility] 1034, Branch Until Discontinu ed, Routine, Intra-op insulin 2018-0 2019- No 5U 5 Units, Unive rs regular 03-2720 IV Push, ity of human 15:00: 14:54 ONCE NOW, [place] (HUMULIN R) 00 :00 1 dose, Medic al injection 5 Fri Branch Units 03/27/19 at 1000, REYNALDO, DSU Pre-op NaCl 0.9% 2019-0 Yes 500mL at 20 Univer s (NS) IV 9-20 mL/hr, IV ity of infusion 13:45: Infusion, [place] 500 mL 00 CONTINUOUS Medical , Starting Branch Sat03/27/19 at 0845, Until Discontinu ed, Routine, DSU Pre-op acetaminoph 2019-0 Yes [id number] 1000mg Take 2 Univers en (TYLENOL 9-20 tablets by it y of EXTRA 00:00: mouth [place] STRENGTH) 00 every 8 Medical 500 mg (eight) Branch tablet hours as needed for Pain. traMADol 50 2019-0 Yes [id number] 50mg Take 1 Univers mg tablet 9-20 tablet by ity o f 00:00: mouth [place] 00 every 6 Medical (six) Branch hours as needed for Pain (scale 4-6). acetaminoph 2019-0 Yes [id number] 1000mg Take 2 Univers en (TYLENOL 9-20 tablets by it y of EXTRA 00:00: mouth [place] STRENGTH) 00 every 8 Medical 500 mg (eight) Branch tablet hours as needed for Pain. traMADol 50 2019-0 Yes [id number] 50mg Take 1 Univers mg tablet 9-20 tablet by ity o f 00:00: mouth [place] 00 every 6 Medical (six) Branch hours as needed for Pain (scale 4-6). acetaminoph 2019-0 Yes [id number] 1000mg Take 2 Univers en (TYLENOL 9-20 tablets by it y of EXTRA 00:00: mouth [place] STRENGTH) 00 every 8 Medical 500 mg (eight) Branch tablet hours as needed for Pain. traMADol 50 2019-0 Yes [id number] 50mg Take 1 Univers mg tablet 9-20 tablet by ity o f 00:00: mouth [place] 00 every 6 Medical (six) Branch hours as needed for Pain (scale 4-6). acetaminoph 2019-0 Yes [id number] 1000mg Take 2 Univers en (TYLENOL 9-20 tablets by it y of EXTRA 00:00: mouth [place] STRENGTH) 00 every 8 Medical 500 mg (eight) Branch tablet hours as needed for Pain. traMADol 50 2019-0 Yes [id number] 50mg Take 1 Univers mg tablet 9-20 tablet by ity o f 00:00: mouth [place] 00 every 6 Medical (six) Branch hours as needed for Pain (scale 4-6). acetaminoph 2019-0 Yes [id number] 1000mg Take 2 Univers en (TYLENOL 9-20 tablets by it y of EXTRA 00:00: mouth [place] STRENGTH) 00 every 8 Medical 500 mg (eight) Branch tablet hours as needed for Pain. traMADol 50 2019-0 Yes [id number] 50mg Take 1 Univers mg tablet 9-20 tablet by ity o f 00:00: mouth [place] 00 every 6 Medical (six) Branch hours as needed for Pain (scale 4-6). acetaminoph 2019-0 Yes [id number] 1000mg Take 2 Univers en (TYLENOL 9-20 tablets by it y of EXTRA 00:00: mouth [place] STRENGTH) 00 every 8 Medical 500 mg (eight) Branch tablet hours as needed for Pain. traMADol 50 2019-0 Yes [id number] 50mg Take 1 Univers mg tablet 9-20 tablet by ity o f 00:00: mouth [place] 00 every 6 Medical (six) Branch hours as needed for Pain (scale 4-6). acetaminoph 2019-0 Yes [id number] 1000mg Take 2 Univers en (TYLENOL 9-20 tablets by it y of EXTRA 00:00: mouth [place] STRENGTH) 00 every 8 Medical 500 mg (eight) Branch tablet hours as needed for Pain. traMADol 50 2019-0 Yes [id number] 50mg Take 1 Univers mg tablet 9-20 tablet by ity o f 00:00: mouth [place] 00 every 6 Medical (six) Branch hours as needed for Pain (scale 4-6). acetaminoph 2019-0 Yes [id number] 1000mg Take 2 Univers en (TYLENOL 9-20 tablets by it y of EXTRA 00:00: mouth [place] STRENGTH) 00 every 8 Medical 500 mg (eight) Branch tablet hours as needed for Pain. traMADol 50 2019-0 Yes [id number] 50mg Take 1 Univers mg tablet 9-20 tablet by ity o f 00:00: mouth [place] 00 every 6 Medical (six) Branch hours as needed for Pain (scale 4-6). acetaminoph 2019-0 Yes [id number] 1000mg Take 2 Univers en (TYLENOL 9-20 tablets by it y of EXTRA 00:00: mouth [place] STRENGTH) 00 every 8 Medical 500 mg (eight) Branch tablet hours as needed for Pain. traMADol 50 2019-0 Yes [id number] 50mg Take 1 Univers mg tablet 9-20 tablet by ity o f 00:00: mouth [place] 00 every 6 Medical (six) Branch hours as needed for Pain (scale 4-6). acetaminoph 2019-0 Yes [id number] 1000mg Take 2 Univers en (TYLENOL 9-20 tablets by it y of EXTRA 00:00: mouth [place] STRENGTH) 00 every 8 Medical 500 mg (eight) Branch tablet hours as needed for Pain. traMADol 50 2019-0 Yes [id number] 50mg Take 1 Univers mg tablet 9-20 [...] 9-16 ity of 1,000 mg in 14:00: [place] NaCl 0.9% 00 Medical (NS) 50 mL Branch MINI-BAG ceFAZolin 0 Yes 1000mg Univer s (ANCEF) 16 ity of 1,000 mg in 14:00: [place] NaCl 0.9% 00 Medical (NS) 50 mL Branch MINI-BAG BABY 0 Yes Take by Univers ASPIRIN 9-05 mouth. ity of ORAL 19:19: [place] [address] Medical Branch Cholecalcif 0 Yes Take by Un denise chadd, 9-05 mouth. ity of Vitamin D3, 19:19: [place] (VITAMIN 49 Medical D3) 5,000 Branch unit tablet loratadine Yes 10mg Take 10 mg U nivers (CLARITIN) 905 by mouth ity o f 10 mg 19:19: daily. [place] tablet 49 Medical Branch BABY Yes Take by Univers ASPIRIN 9-05 mouth. ity of ORAL 19:19: [place] [address] Medical Branch Cholecalcif Yes Take by Un denise chadd, 9-05 mouth. ity of Vitamin D3, 19:19: [place] (VITAMIN 49 Medical D3) 5,000 Branch unit tablet loratadine Yes 10mg Take 10 mg U nivers (CLARITIN) 905 by mouth ity o f 10 mg 19:19: daily. [place] tablet 49 Medical Branch BABY Yes Take by Univers ASPIRIN 9-05 mouth. ity of ORAL 19:19: [place] [address] Medical Branch Cholecalcif 0 Yes Take by Un denise chadd, 9-05 mouth. ity of Vitamin D3, 19:19: [place] (VITAMIN 49 Medical D3) 5,000 Branch unit tablet loratadine Yes 10mg Take 10 mg U nivers (CLARITIN) 9-05 by mouth ity o f 10 mg 19:19: daily. [place] tablet 49 Medical Branch BABY Yes Take by Univers ASPIRIN 9-05 mouth. ity of ORAL 19:19: [place] 49 Medical Branch Cholecalcif 0 Yes Take by Un denise chadd, 9-05 mouth. ity of Vitamin D3, 19:19: [place] (VITAMIN 49 Medical D3) 5,000 Branch unit tablet loratadine Yes 10mg Take 10 mg U nivers (CLARITIN) 9-05 by mouth ity o f 10 mg 19:19: daily. [place] tablet 49 Medical Branch BABY Yes Take by Univers ASPIRIN 9-05 mouth. ity of ORAL 19:19: [place] [address] Medical Branch Cholecalcif Yes Take by Un denise chadd, 9-05 mouth. ity of Vitamin D3, 19:19: [place] (VITAMIN 49 Medical D3) 5,000 Branch unit tablet loratadine Yes 10mg Take 10 mg U nivers (CLARITIN) 905 by mouth ity o f 10 mg 19:19: daily. [place] tablet 49 Medical Branch BABY Yes Take by Univers ASPIRIN 9-05 mouth. ity of ORAL 19:19: [place] [address] Medical Branch Cholecalcif Yes Take by Un denise chadd, 9-05 mouth. ity of Vitamin D3, 19:19: [place] (VITAMIN 49 Medical D3) 5,000 Branch unit tablet loratadine Yes 10mg Take 10 mg U nivers (CLARITIN) 905 by mouth ity o f 10 mg 19:19: daily. [facility] 49 Medical Branch doxazosin 2 Yes TAKE [...] MOUTH TWICE A Medical DAY Branch atorvastati 0 Yes 10mg Take 10 mg Univers n [...] of tablet 00:00: daily. Medical Branch doxazosin Yes TAKE 1 Method i (CARDURA) 2 8-[address] MG tablet 00:00: MOUTH Hospita 00 TWICE A l DAY atorvastati Yes 10mg Take 10 mg Methodi n (LIPITOR) 8-[address] 10 mg 00:00: Hospita tablet 00 l calcium Yes TAKE BY Univers acetate 667 [...] 1 CAPSUE 2 TIMES WITH SNACKS calcium 2019-0 Yes TAKE BY [facility] 667 7-25 MOUTH 1 ity o f mg capsule 00:00: CAPSULE 3 [place] 00 TIMES A Medical DAY WITH Branch FOOD AND 1 CAPSUE 2 TIMES WITH SNACKS calcium 2019-0 Yes TAKE BY [facility] 66 7-25 MOUTH 1 ity o f mg capsule 00:00: CAPSULE 3 [place] 00 TIMES A Medical DAY WITH Branch FOOD AND 1 CAPSUE 2 TIMES WITH SNACKS calcium 2019-0 Yes TAKE BY [facility] 66 7-25 MOUTH 1 ity o f mg capsule 00:00: CAPSULE 3 [place] 00 TIMES A Medical DAY WITH Branch FOOD AND 1 CAPSUE 2 TIMES WITH SNACKS calcium 2019-0 Yes TAKE BY [facility] 66 7-25 MOUTH 1 ity o f mg capsule 00:00: CAPSULE 3 [place] 00 TIMES A Medical DAY WITH Branch FOOD AND 1 CAPSUE 2 TIMES WITH SNACKS calcium 2019-0 Yes TAKE BY [place] [address] 7-25 MOUTH 1 ity o f mg capsule 00:00: CAPSULE 3 [place] 00 TIMES A Medical DAY WITH Branch FOOD AND 1 CAPSUE 2 TIMES WITH SNACKS calcium 2019-0 Yes TAKE BY [facility] 66 7-25 MOUTH 1 ity o f mg capsule 00:00: CAPSULE 3 [place] 00 TIMES A Medical DAY WITH Branch FOOD AND 1 CAPSUE 2 TIMES WITH SNACKS calcium 2019-0 Yes TAKE BY [facility] 66 7-25 MOUTH 1 ity o f mg capsule 00:00: CAPSULE 3 [place] 00 TIMES A Medical DAY WITH Branch FOOD AND 1 CAPSUE 2 TIMES WITH SNACKS calcium 2019-0 2020- No TAKE BY [place] [address] 7-25 01-27 MOUTH 1 ity of mg capsule 00:00: 00:00 CAPSULE 3 [place] 00 :00 TIMES A Medical DAY WITH Branch FOOD AND 1 CAPSUE 2 TIMES WITH SNACKS calcium 2019-0 2020- No TAKE BY [place] [address] 7-25 23 MOUTH 1 ity of mg capsule 00:00: 00:00 CAPSULE 3 [place] 00 :00 TIMES A Medical DAY WITH Branch FOOD AND 1 CAPSUE 2 TIMES WITH SNACKS calcium 2019-0 2020- No TAKE BY [place] [address] 01-29 07-23 MOUTH 1 ity of mg capsule 00:00: 00:00 CAPSULE 3 [place] :[place] TIMES A Medical DAY WITH Branch FOOD AND 1 CAPSUE 2 TIMES WITH SNACKS furosemide Yes TAKE 1 Unive rs 40 mg 7-22 TABLET BY ity of tablet 00:00: MOUTH 00 TWICE A Medical DAY Branch metoprolol Yes TAKE 1 Unive rs tartrate 50 7-22 TABLET BY ity of mg tablet 00:00: MOUTH TWICE A Medical DAY Branch furosemide Yes TAKE 1 Unive rs 40 mg 7-22 TABLET BY ity of tablet 00:00: MOUTH TWICE A Medical DAY Branch metoprolol Yes TAKE 1 Unive rs tartrate 50 7-22 TABLET BY ity of mg tablet 00:00: MOUTH TWICE A Medical DAY Branch furosemide Yes TAKE 1 Unive rs 40 mg 7-22 TABLET BY ity of tablet 00:00: MOUTH TWICE A Medical DAY Branch metoprolol Yes TAKE 1 Unive rs tartrate 50 7-22 TABLET BY ity of mg tablet 00:00: MOUTH TWICE A Medical DAY Branch furosemide Yes TAKE 1 Unive rs 40 mg 7-22 TABLET BY ity of tablet 00:00: MOUTH TWICE A Medical DAY Branch metoprolol Yes TAKE 1 Unive rs tartrate 50 7-22 TABLET BY ity of mg tablet 00:00: MOUTH 00 TWICE A Medical DAY Branch furosemide 2018- Yes TAKE 1 Unive rs 40 mg 7-22 TABLET BY ity of tablet 00:00: MOUTH TWICE A Medical DAY Branch metoprolol Yes TAKE 1 Unive rs tartrate 50 7-22 TABLET BY ity of mg tablet 00:00: MOUTH TWICE A Medical DAY Branch furosemide Yes TAKE 1 Unive rs 40 mg 7-22 TABLET BY ity of tablet 00:00: MOUTH 00 TWICE A Medical DAY Branch metoprolol Yes TAKE 1 Unive rs tartrate 50 7-22 TABLET BY ity of mg tablet 00:00: MOUTH TWICE A Medical DAY Branch furosemide 2018- Yes TAKE 1 Unive rs 40 mg 7-22 TABLET BY ity of tablet 00:00: MOUTH [place] 00 TWICE A Medical DAY Branch metoprolol 20190 [...] [place] 00 TWICE A Medical DAY Branch furosemide Yes TAKE 1 Unive rs 40 mg 7-22 TABLET BY ity of tablet 00:00: MOUTH [place] 00 TWICE A Medical DAY Branch metoprolol Yes TAKE 1 Unive rs tartrate 50 7-22 TABLET BY ity of mg tablet 00:00: MOUTH [place] 00 TWICE A Medical DAY Branch furosemide Yes TAKE 1 Unive rs 40 mg 7-22 TABLET BY ity of tablet 00:00: MOUTH [place] 00 TWICE A Medical DAY Branch metoprolol Yes TAKE 1 Unive rs tartrate 50 7-22 TABLET BY ity of mg tablet 00:00: MOUTH [place] 00 TWICE A Medical DAY Branch furosemide Yes TAKE 1 Metho di (LASIX) 40 7-[address] mg tablet 00:00: MOUTH [facility] 00 TWICE A l DAY metoprolol Yes TAKE 1 Metho di tartrate 7-[address] (LOPRESSOR) 00:00: MOUTH Hospi ta 50 mg 00 TWICE A l tablet DAY GLIMEPIRIDE 2017-07 Yes [id number] TAKE 1 Univers 2 mg tablet 1-19 TABLET BY ity of 00:00: MOUTH [place] 00 EVERY DAY Medical WITH Branch BREAKFAST GLIMEPIRIDE 2017-07 Yes [id number] TAKE 1 Univers 2 mg tablet 1-19 TABLET BY ity of 00:00: MOUTH [place] 00 EVERY DAY Medical WITH Branch BREAKFAST GLIMEPIRIDE 2017-07 Yes [id number] TAKE 1 Univers 2 mg tablet 1-19 TABLET BY ity of 00:00: MOUTH [place] 00 EVERY DAY Medical WITH Branch BREAKFAST GLIMEPIRIDE 2017-07 Yes [id number] TAKE 1 Univers 2 mg tablet 1-19 TABLET BY ity of 00:00: MOUTH [place] 00 EVERY DAY Medical WITH Branch BREAKFAST GLIMEPIRIDE 2017-07 Yes [id number] TAKE 1 Univers 2 mg tablet 1-19 TABLET BY ity of 00:00: MOUTH [place] 00 EVERY DAY Medical WITH Branch BREAKFAST GLIMEPIRIDE 2017-07 Yes [id number] TAKE 1 Univers 2 mg tablet 1-19 TABLET BY ity of 00:00: MOUTH [place] 00 EVERY DAY Medical WITH Branch BREAKFAST GLIMEPIRIDE 2017-07 Yes [id number] TAKE 1 Univers 2 mg tablet 1-19 TABLET BY ity of 00:00: MOUTH [place] 00 EVERY DAY Medical WITH Branch BREAKFAST GLIMEPIRIDE 2018 Yes [id number] TAKE 1 Univers 2 mg tablet 1-19 TABLET BY ity of 00:00: MOUTH [place] 00 EVERY DAY Medical WITH Branch BREAKFAST GLIMEPIRIDE 2017-07 Yes [id number] TAKE 1 Univers 2 mg tablet 1-19 TABLET BY ity of 00:00: MOUTH [place] 00 EVERY DAY Medical WITH Branch BREAKFAST GLIMEPIRIDE 2017-07 Yes [id number] TAKE 1 Univers 2 mg tablet 1-19 TABLET BY ity of 00:00: MOUTH [place] 00 EVERY DAY Medical WITH Branch BREAKFAST GLIMEPIRIDE 2017-07 Yes [id number] TAKE 1 Univers 2 mg tablet 1-19 TABLET BY ity of 00:00: MOUTH [place] 00 EVERY DAY Medical WITH Branch BREAKFAST GLIMEPIRIDE 2017-07 Yes [id number] TAKE 1 Univers 2 mg tablet 1-19 TABLET BY ity of 00:00: MOUTH [place] 00 EVERY DAY Medical WITH Branch BREAKFAST GLIMEPIRIDE 2017- 2020- No [id number] TAKE 1 Univers 2 mg tablet -23 01-23 TABLET BY it y of 00:00: 00:00 MOUTH [place] 00 :00 EVERY DAY Medical WITH Branch BREAKFAST GLIMEPIRIDE 2017- 2020- No [id number] TAKE 1 Univers 2 mg tablet -23 01-23 TABLET BY it y of 00:00: 00:00 MOUTH [place] 00 :00 EVERY DAY Medical WITH Branch BREAKFAST GLIMEPIRIDE 2017- 2020- No [id number] TAKE 1 Univers 2 mg tablet -23 01- TABLET BY it y of 00:00: 00:00 MOUTH [place] 00 :00 EVERY DAY Medical WITH Branch BREAKFAST TRADJENTA 5 2017-07 Yes [id number] TAKE 1 Univers mg tablet 1-12 TABLET BY ity o f 00:00: MOUTH [place] 00 EVERY DAY Medical Branch TRADNTA 5 2017- Yes [id number] TAKE 1 Univers mg tablet 1-12 TABLET BY ity o f 00:00: MOUTH [place] 00 EVERY DAY Medical Branch TRADJENTA 5 2017-07 Yes [id number] TAKE 1 Univers mg tablet 1-12 TABLET BY ity o f 00:00: MOUTH [place] 00 EVERY DAY Medical Branch TRADNTA 5 2017-07 Yes [id number] TAKE 1 Univers mg tablet 1-12 TABLET BY ity o f 00:00: MOUTH [place] 00 EVERY DAY [facility] 5 2017-07 Yes [id number] TAKE 1 Univers mg tablet 1-12 TABLET BY ity o f 00:00: MOUTH [place] 00 EVERY DAY [facility] 5 2017-07 Yes [id number] TAKE 1 Univers mg tablet 1-12 TABLET BY ity o f 00:00: MOUTH [place] EVERY DAY [facility] 5 2017-07 Yes [id number] TAKE 1 Univers mg tablet 1-12 TABLET BY ity o f 00:00: MOUTH [place] 00 EVERY DAY [place] [address] 2017-07 Yes [id number] TAKE 1 Univers mg tablet 1-12 TABLET BY ity o f 00:00: MOUTH [place] 00 EVERY DAY [facility] 5 2017-07 Yes [id number] TAKE 1 Univers mg tablet 1-12 TABLET BY ity o f 00:00: MOUTH [place] EVERY DAY [place] [address] 2017-07 Yes [id number] TAKE 1 Univers mg tablet 1-12 TABLET BY ity o f 00:00: MOUTH [place] 00 EVERY DAY [facility] 5 2017-07 Yes [id number] TAKE 1 Univers mg tablet 1-12 TABLET BY ity o f 00:00: MOUTH [place] 00 EVERY DAY [place] [address] 2017-07 Yes [id number] TAKE 1 Univers mg tablet 1-12 TABLET BY ity o f 00:00: MOUTH [place] EVERY DAY [place] [address] 2017-07 Yes [id number] TAKE 1 Univers mg tablet 1-12 TABLET BY ity o f 00:00: MOUTH [place] 00 EVERY DAY [facility] 5 2017-07 Yes [id number] TAKE 1 Univers mg tablet 1-12 TABLET BY ity o f 00:00: MOUTH [place] 00 EVERY DAY [facility] 5 2017-07 Yes [id number] TAKE 1 Univers mg tablet 1-12 TABLET BY ity o f 00:00: MOUTH [place] 00 EVERY DAY [facility] 5 2017-07 Yes [id number] TAKE 1 Univers mg tablet 1-12 TABLET BY ity o f 00:00: MOUTH [place] EVERY DAY [facility] 5 2017-07 Yes [id number] TAKE 1 Univers mg tablet 1-12 TABLET BY ity o f 00:00: MOUTH [place] 00 EVERY DAY Medical Branch TRADSCOTTNTA 5 2018- Yes [id number] TAKE 1 Univers mg tablet 1-12 TABLET BY ity o f 00:00: MOUTH [place] 00 EVERY DAY Medical Branch TRADSCOTTNTA 5 2018-1 Yes [id number] TAKE 1 Univers mg tablet 1-12 TABLET BY ity o f 00:00: MOUTH [place] 00 EVERY DAY Medical Branch amLODIPine Yes [id number] 10mg Take 1 U nivers 10 mg 7-02 tablet by ity of tablet 00:00: mouth [place] 00 daily. Medical Branch amLODIPine Yes [id number] 10mg Take 1 U nivers 10 mg 7-02 tablet by ity of tablet 00:00: mouth [place] 00 daily. Medical Branch amLODIPine Yes [id number] 10mg Take 1 U nivers 10 mg 7-02 tablet by ity of tablet 00:00: mouth [place] 00 daily. Medical Branch amLODIPine Yes [id number] 10mg Take 1 U nivers 10 mg 7-02 tablet by ity of tablet 00:00: mouth [place] 00 daily. Medical Branch amLODIPine Yes [id number] 10mg Take 1 U nivers 10 mg 7-02 tablet by ity of tablet 00:00: mouth [place] 00 daily. Medical Branch amLODIPine Yes [id number] 10mg Take 1 U nivers 10 mg 7-02 tablet by ity of tablet 00:00: mouth [place] 00 daily. Medical Branch amLODIPine Yes [id number] 10mg Take 1 U nivers 10 mg 7-02 tablet by ity of tablet 00:00: mouth [place] 00 daily. Medical Branch amLODIPine Yes [id number] 10mg Take 1 U nivers 10 mg 7-02 tablet by ity of tablet 00:00: mouth [place] 00 daily. Medical Branch amLODIPine Yes [id number] 10mg Take 1 U nivers 10 mg 7-02 tablet by ity of tablet 00:00: mouth [place] 00 daily. Medical Branch amLODIPine Yes [id number] 10mg Take 1 U nivers 10 mg 7-02 tablet by ity of tablet 00:00: mouth [place] 00 daily. Medical Branch amLODIPine Yes [id number] 10mg Take 1 U nivers 10 mg 7-02 tablet by ity of tablet 00:00: mouth [place] 00 daily. Medical Branch amLODIPine Yes [id number] 10mg Take 1 U nivers 10 mg 7-02 tablet by ity of tablet 00:00: mouth [place] 00 daily. Medical Branch amLODIPine Yes [id number] 10mg Take 1 U nivers 10 mg 7-02 tablet by ity of tablet 00:00: mouth [place] 00 daily. Medical Branch amLODIPine Yes [id number] 10mg Take 1 U nivers 10 mg 7-02 tablet by ity of tablet 00:00: mouth [place] 00 daily. Medical Branch amLODIPine Yes [id number] 10mg Take 1 U nivers 10 mg 7-02 tablet by ity of tablet 00:00: mouth [place] 00 daily. [facility] Branch amLODIPine Yes [id number] 10mg Take 1 U nivers 10 mg 7-02 tablet by ity of tablet 00:00: mouth [place] 00 daily. [facility] Branch amLODIPine Yes [id number] 10mg Take 1 U nivers 10 mg 7-02 tablet by ity of tablet 00:00: mouth [place] 00 daily. [facility] Branch amLODIPine Yes [id number] 10mg Take 1 U nivers 10 mg 7-02 tablet by ity of tablet 00:00: mouth [place] 00 daily. [facility] Branch amLODIPine Yes [id number] 10mg Take 1 U nivers 10 mg 7-02 tablet by ity of tablet 00:00: mouth [place] 00 daily. [facility] Branch amLODIPine Yes 10mg Take 10 mg M ethodi (NORVASC) 7-[address] 10 mg 00:00: Hospita tablet 00 l Victoza Victoza Yes Todd inject 0.6 C [...] HI St Mesylate Mesylate [facility] tablet by Sachin Estrada mouth Memoria twice a l day [facility] ent [facility] Furosemide Furosemide Yes Todd take [address] [facility] tablet by [facility] - mouth Memoria twice a l day [facility] ent Clinics Toujeo Chuckuscotto Yes Todd INJECT SUB [facility] SoloStar SoloStar Davis 38 UNITS Mariza kes - DAILY Memoria [facility] ent [facility] Glimepiride Glimepiride Yes Todd take [address] [facility] tablet by [facility] - mouth Memoria every day l [facility] ent [facility] Atorvastati Atorvastati Yes Todd TAKE [address] [facility] n Calcium n Calcium [facility] TABLET BY [facility] - MOUTH Memoria EVERY DAY l [facility] ent [facility] Vitamin D-3 Vitamin D-3 Yes Todd as [facility] directed [facility] Amlodipine Amlodipine Yes Todd take [address] [facility] Besylate Besylate Davis tablet by L ukes - mouth Memoria every day l [facility] ent [facility] Tradjenta Tradjenta Yes Todd TAKE [address] [facility] TABLET BY [facility] - MOUTH Memoria EVERY DAY l ONCE A DAY [place] [address] ent Clinics Metoprolol Metoprolol Yes Todd take [address] [facility] Tartrate Tartrate [facility] tablet by L ukes - mouth Memoria twice a l day [facility] ent [facility] Atorvastati Atorvastati Yes Todd take [address] [facility] [facility] n Calcium n Calcium Davis tablet by [facility] - mouth Memoria every day l [facility] ent [facility] Vital Signs Vital Name Observation Time Observation Value Comments Source Systolic blood 2020-02-09 20:54:00 169 mm[Hg] [facility] Diastolic blood 2020-02-09 20:54:00 101 mm[Hg] [facility] Heart rate 2020-02-09 20:54:00 88 /min [facility] Body temperature 2020-02-09 20:54:00 36.83 Aparna [facility] Respiratory rate 2020-02-09 20:54:00 20 /min [facility] Body height 2020-02-09 20:54:00 172.7 cm [facility] Body weight 2020-02-09 20:54:00 112.946 kg [facility] BMI 2020-02-09 20:54:00 37.86 kg/m2 [facility] [place] [facility] Oxygen saturation in 2020-02-09 20:54:00 98 /min [facility] of Arterial blood by [facility] Pulse oximetry Branch Systolic blood 2020-02-09 20:54:00 169 mm[Hg] Univer sity of [facility] [place] [facility] Diastolic blood 2020-02-09 20:54:00 101 mm[Hg] Unive rsity of [facility] [place] [facility] Heart rate 2020-02-09 20:54:00 88 /min [facility] [place] [facility] Body temperature 2020-02-09 20:54:00 36.83 Aparna [facility] [place] [facility] Respiratory rate 2020-02-09 20:54:00 20 /min [facility] [place] [facility] Body height 2020-02-09 20:54:00 172.7 cm [facility] [place] [facility] Body weight 2020-02-09 20:54:00 112.946 kg Universi ty of [facility] Branch BMI 2020-02-09 20:54:00 37.86 kg/m2 Universi ty of [facility] Branch Oxygen saturation in 2020-02-09 20:54:00 98 /min University of Arterial blood by [facility] Pulse oximetry Branch Systolic blood 2020-01-29 19:55:00 123 mm[Hg] Univer sity of [facility] [place] [facility] Diastolic blood 2020-01-29 19:55:00 81 mm[Hg] Unive rsity of [facility] [place] [facility] Respiratory rate 2020-01-29 19:55:00 12 /min [facility] [place] [facility] Oxygen saturation in 2020-01-29 19:55:00 97 /min [facility] of Arterial blood by [facility] Pulse oximetry Branch Heart rate 2020-01-29 19:40:00 72 /min [facility] [place] [facility] Body temperature 2020-01-29 19:25:00 36.89 Aparna [facility] [place] [facility] Systolic blood 2020-01-28 16:36:00 111 mm[Hg] Univer [facility]ity of [facility] [place] [facility] Diastolic blood 2020-01-28 16:36:00 76 mm[Hg] Unive rsity of [facility] [place] [facility] Heart rate 2020-01-28 16:36:00 100 /min [facility] [place] [facility] Body temperature 2020-01-28 16:36:00 37.44 Aparna [facility] [place] [facility] [place] Respiratory rate 2020-01-28 16:36:00 18 /min [facility] [place] [facility] [place] Body weight 2020-01-28 16:36:00 110.859 kg [facility] [place] [facility] [place] BMI 2020-01-28 16:36:00 34.10 kg/m2 Universi ty of [facility] Systolic blood 2019-03-27 16:59:00 132 mm[Hg] Univer sity of [facility] [place] [facility] Diastolic blood 2019-03-27 16:59:00 82 mm[Hg] Unive rsity of pressure [facility] Oxygen saturation in 2019-03-27 16:59:00 100 /min [facility] Arterial blood by [facility] Pulse oximetry Branch Heart rate 2019-03-27 16:45:00 81 /min Universi ty of [facility] Respiratory rate 2019-03-27 16:45:00 20 /min Univ ersity of [facility] Body temperature 2019-03-27 16:37:00 36.94 Aparna Univ ersity of [facility] Body height 2019-03-25 17:00:00 180.3 cm [facility] [place] [facility] [place] Body weight 2019-03-25 17:00:00 117.935 kg Universi [facility] BMI 2019-03-25 17:00:00 36.26 kg/m2 [facility] Systolic blood 2019-03-12 19:16:00 122 mm[Hg] Univer sity of pressure [facility] Diastolic blood 2019-03-12 19:16:00 79 mm[Hg] Unive rsity of pressure [facility] Heart rate 2019-03-12 19:16:00 85 /min Universi ty [facility] Body temperature 2019-03-12 19:16:00 38.11 Aparna Univ ersity of [facility] Respiratory rate 2019-03-12 19:16:00 18 /min Univ ersity of [facility] Body height 2019-03-12 19:16:00 172.7 cm [facility] [place] [facility] [place] Body weight 2019-03-12 19:16:00 116.484 kg [facility] BMI 2019-03-12 19:16:00 39.05 kg/m2 [facility] Procedures Procedure Date / Time Performing Clinician Source Performed BASIC METABOLIC PANEL 2020-01-29 16:55:00 Mitzi Benz [facility] (NA, K, CL, CO2, Medical Branch GLUCOSE, BUN, CREATININE, CA) POCT GLUCOSE(AGE 2020-01-29 15:48:00 Perfecto [facility] >30DAYS) Medical Branch DAY SURGERY - ADC 2020-01-29 05:01:00 Doctor Unassigned, No [facility] EXTERNAL PROVIDER 2020-01-28 05:01:00 Doctor Unassigned, No [facility] REC[facility]DS Name Medical [place] POCT GLUCOSE(AGE 2019-03-27 16:31:00 Debra [facility] 0-30DAYS) Medical Branch EKG-12 LEAD 2019-03-27 14:15:39 Richard Huertas Naalehu john rossi [facility] BASIC METABOLIC PANEL 2019-03-27 13:52:00 Leona Telles [facility] (NA, K, CL, CO2, Medical Branch GLUCOSE, BUN, CREATININE, CA) CBC WITH DIFFERENTIAL 2019-03-27 13:51:00 Leona Telles [facility] ASSIGNMENT OF BENEFITS 2019-03-12 19:03:56 Doctor Unassigned, No [facility] Branch REFERRAL- 2019-03-10 05:01:00 Doctor Unassigned, No [facility] REQUEST/RESPONSE Name [facility] REFERRAL- 2019-02-17 05:01:00 Doctor Unassigned, No [facility] REQUEST/RESPONSE Name [facility] Plan of Care Planned Activity Planned Date Details Comments Source Future Scheduled 2021-08-08 [facility] 22:23:08 (1) [code = COVID-19 VACCINE (1)] Future Scheduled 2021-08-08 DIABETES: RETINAL [facility] Test 22:23:08 EYE EXAM [code = DIABETES: RETINAL EYE EXAM] Future Scheduled 2021-08-08 DIABETIC FOOT EXAM [facility] Test 22:23:08 [code = DIABETIC FOOT EXAM] Future Scheduled 2021-08-08 [facility] 22:23:08 screening (procedure) [code = 426946870] Future Scheduled 2021-08-08 INFLUENZA VACCINE [facility] Test 22:23:08 [code = INFLUENZA VACCINE] Encounters Start End Encounter Admission Attending Care Care Encounter Source Date/Time Date/Time Type Type Clinicians Facility Department ID 2021-08-02 [facility] [id number] 12:37:29 [facility] [id number] [facility] 2021-08-02 [facility] [id number] 11:44:45 [place] 47709 [facility] 2021-08-02 Outpatient [facility], [facility] [id number] 11:44:18 [place] 11061 [facility] 2021-08-02 Outpatient Davis, [facility] [id number] 11:25:55 Todd 20522 [facility] 2021-08-02 Outpatient Davis, [facility] [id number] 11:25:27 Todd 68055 [facility] 2021-08-02 Outpatient Davis, [facility] [id number] 11:17:13 Todd 43873 [facility] 2021-08-02 Outpatient Davis, [facility] [id number] 11:12:09 Todd 46230 [facility] 2021-08-02 Outpatient Davis, [facility] [id number] 11:07:27 [place] 34293 [facility] 2021-05-05 Outpatient Ila TREJO [facility] [id number] [facility] 08:28:09 DEBRA juan [facility] 2020-06-16 2020-06-16 [facility] [id number] [facility]00 [facility] 2020-03-17 2020-03-17 Outpatient Matt Sutton [id number] 14:10:00 14:10:00 Koibanx [facility] Outpati ent Clinics 2020-02-22 2020-02-22 Outpatient Matt Sutton [id number] 16:58:00 16:58:00 t [facility] UrbanBuz Yacolt s [facility] Medicine Outpati ent Clinics 2020-02-09 2020-02-09 [facility] [id number] 15:18:54 16:25:44 Visit Debra Addison [id number] [place] [id number] Professio [phone] [address] 2020-02-09 2020-02-09 [facility] [id number] Univers 15:18:54 16:25:44 Visit Debra Addison [id number] i ty [id number] [phone] Wi dical [address] 2020-02-09 2020-02-09 [facility] [id number] Univers 15:30:00 15:30:00 DEBRA itsophia [facility] 2020-01-29 2020-01-29 [facility] [id number] Univers 08:26:00 15:00:00 Encounter Debra Addison [id number] it[id number] [place] [phone] [address] 2020-01-29 2020-01-29 Outpatient R [facility] [id number] Univers 13:15:00 13:15:00 [id number] ity of [facility] 2020-01-29 2020-01-29 Laboratory Only, Adc Test [facility] [id number] Univers 08:31:17 08:46:17 Only Debra Trejo [id number] ity [place] [id number] [place] [facility] [phone] [address] 2020-01-29 2020-01-29 Orders Doctor DELONTE [id number] Univers 00:00:00 00:00:00 Only Unassigned, REINA [id number] ity of [facility] [id number] Alfred as [phone] [facility] 00[address] [place] 2020-01-28 2020-01-28 [facility] [id number] Univers 11:28:36 11:56:45 Visit Debra Cyn [id number] i ty [place] [id number] [phone] Wi dical nal [address] [facility] 2020-01-28 2020-01-28 Outpatient R NEIL [facility] [id number] Univers 11:15:00 11:15:00 DEBRA [id number] ity of [facility] 2020-01-28 2020-01-28 [facility] [id number] Univers 11:15:00 11:15:00 DEBRA ity [facility] 2020-01-28 2020-01-28 Orders Doctor DELONTE [id number] Univers 00:00:00 00:00:00 Only Unassigned, REINA [id number] [facility] [id number] Alfred as [phone] [facility] 009 [place] 2020-01-28 2020-01-28 Prep For Elfego, [facility] [id number] Univers 00:00:00 00:00:00 Surgery Leona Booth Cyn [id number] [id number] [phone] Wi dical nal 204 [facility] 2020-01-20 2020-01-20 [facility] [id number] 15:47:00 15:47:00 t Cell [facility] Medicine Outpati ent Clinics 2019-12-16 2019-12-16 [facility] [id number] 15:00:00 15:00:[address] [facility] Medicine l Medicine Outpati ent Clinics 2019-12-16 2019-12-16 [facility] [id number] 14:45:00 14:45:[address] [facility] Medicine l Medicine Outpati ent Clinics 2019-11-26 2019-11-26 [facility] [id number] 13:57:00 13:57:00 t [facility] s - Road [facility] 2019-09-15 2019-09-15 [facility] [id number] 15:15:00 15:15:[address] Luke s - Drive [facility] l Medicine Outpati ent Clinics 2019-09-14 2019-09-14 [facility] [id number] 07:56:00 07:56:[address] Luke s - [address] [facility] Medicine Medicine Outpati ent Clinics 2019-09-10 2019-09-10 [facility] [id number] 10:00:00 10:00:00 t [facility] 2019-09-07 2019-09-07 [facility] [id number] 09:39:00 09:39:[address] Luke s - Drive [facility] Medicine Outpati ent Clinics 2019-08-13 2019-08-13 [facility] [id number] 14:49:00 14:49:00 [facility] Medicine Outpati ent Clinics 2019-07-20 2019-07-20 Outpatient Ila TREJO [facility] [id number] Univers 09:15:00 09:16:44 DEBRA juan [facility] 2019-07-06 2019-07-06 Outpatient Ila TREJO [facility] EFRA [id number] Univers 10:18:00 13:59:00 DEBRA juan [facility] 2019-06-25 2019-06-25 [facility] [id number] [address] 11:04:00 11:04:00 t [place] [facility] happin! s - Drive [facility] Medicine Outpati ent Clinics 2019-06-18 2019-06-18 Outpatient Ila TREJO [facility] [id number] [facility] 14:30:00 14:54:07 DEBRA juan [facility] 2019-06-15 2019-06-15 [facility] [id number] 10:00:00 10:00:[address] Luke s - Drive [facility] Medicine Outpati ent Clinics 2019-06-10 2019-06-10 [facility] [id number] 08:33:00 08:33:[address] Luke s - Drive [facility] Medicine Outpati ent Clinics 2019-06-08 2019-06-08 [facility] [id number] 13:51:00 13:51:00 t [facility] Road Lu s - Road [facility] Medicine Outpati ent Clinics 2019-04-09 2019-04-09 Outpatient [facility] [id number] [facility] 13:30:00 13:40:01 DEBRA juan [facility] 2019-04-08 2019-04-08 [facility] [id number] 16:33:00 16:33:00 [facility] s - Drive [facility] Medicine Outpati ent Clinics 2019-03-27 2019-03-27 [facility] [id number] Univers 08:38:00 13:00:00 Encounter Debra Addison [id number] [place] [phone] [address] 2019-03-17 2019-03-17 Telephone [facility] [id number] Univers 00:00:00 00:00:00 Leona Addison [id number] [id number] [phone] Wi dical nal [address] [place] [address] 2019-03-17 2019-03-17 Telephone [facility] [id number] Univers 00:00:00 00:00:00 Leona Addison [id number] [place] [phone] Wi dical nal [address] [place] [address] 2019-03-13 2019-03-13 [facility] [id number] 08:45:00 08:45:00 t [facility] Outpati ent Clinics 2019-03-12 2019-03-12 [facility] [id number] Univers 14:05:56 15:28:12 Visit Debra Addison [id number] i [place] [phone] [facility] [address] [facility] 2019-03-12 2019-03-12 Outpatient R [facility] [id number] [facility] 14:00:00 14:43:39 DEBRA juan [facility] 2019-03-12 2019-03-12 Orders Doctor DELONTE [id number] Univers 00:00:00 00:00:00 Only Unassigned, REINA [id number] ity of [place] [facility] 4.2.7.2.686 Alfred as [phone] [address] 2019-03-12 2019-03-12 [facility] [id number] Univers 00:00:00 00:00:00 Surgery Leona Addison [id number] [place] [phone] [facility] [address] [facility] 2019-03-10 2019-03-10 Orders Doctor DELONTE [id number] Univers 00:00:00 00:00:00 Only Unassigned, REINA [id number] ity of [place] [facility] 4.2.7.2.686 Alfred as [phone] [address] 2019-02-17 2019-02-17 Orders Doctor DELONTE [id number] Univers 00:00:00 00:00:00 Only Unassigned, REINA [id number] ity of [place] [facility] 4.2.7.2.686 Alfred as [phone] [address] Results Test Description Test Time Test Comments Results Result Comments Source Basic Metabolic Panel (NA, K, CL, CO2, Glucose, BUN, 2020-01 17:22:00 Creatinine, CA) Test Item Value Reference Range Interpretation Comme nts NA (test code = 6258773913) 136 mmol/L 135-145 K (test code = 3973127497) 3.6 mmol/L 3.5-5 CL (test code = 5729113222) 97 mmol/L 98-108 L CO2 TOTAL (test code = 6601730809) 28 mmol/L 23-31 AGAP (test code = 3290714149) 2-16 BUN (test code = 6393600879) 49 mg/dL 7-23 H GLUCOSE (test code = 5367411148) 313 mg/dL 70-110 H CREATININE (test code = 9.39 mg/dL 0.6-1.25 H 6941181909) CALCIUM (test code = 1034809615) 9.1 mg/dL 8.6-10.6 eGFR Calculation (Non- mL/min/1.73m2 Mac[place]) (test code = 3986243242) eGFR Calculation ( mL/min/1.73m2 [place]) (test code = 9507943253) CRISTIANA (test code = CRISTIANA) Association of Glomerular Filtration Rate (GFR) and Staging of Kidney Disease* + +-------- + ------+| GFR (mL/min/1.73 m2) ?| With Kidney Damage ?| ?Without Kidney Damage+ +-- + +| ?>90 ?| ?Stage one ?| ? Normal ?+ +------- + -------+| ?60-89 ?| ?Stage two ?| ? Decreased GFR ? + +-------- + ------+| ?30-59 ?| ?Stage three ?| ? Stage three ? + +-------- + ------+| ?15-29 ?| ?Stage four ? | ? Stage four ?+ +------- + -------+| ?<15 (or dialysis) ? ?| ?Stage five ? | ? Stage five ?+ +------- + -------+ *Each stage assumes the associated GFR [...] or abnormalities in imaging tests). Lab Interpretation (test code = Abnormal 79306-2) [facility] [id number] 15:48:00 Test Item Value Reference Range Interpretation Comments POCT Glu (age>30days) (test code = 327 mg/dL 70-110 A 3342) Lab Interpretation (test code = Abnormal 61275-3) [facility] GLUCOSE(AGE 0-30DAYS)2019-03-27 16:31:00 Test Item Value Reference Range Interpretation Comments POCT Glu (age 0-30days) (test code 270 mg/dl 40-110 A = 3343) Lab Interpretation (test code = Abnormal 99858-9) [facility] WITH [id number] 14:20:00 Test Item Value Reference Range Interpretation Comments WBC (test code = See_Comment [Automated 3190-2) message] The sy stem which generated this result transmitted reference range : 4.20 - 10.70 10*3/?L. The reference range was not used to interpret this result as normal/abnormal . RBC (test code = See_Comment L [Automated 149-8) message] The sy stem which generated this [...] RDW-SD (test code = 42.0 fL 38.5-51.6 71822-1) RDW-CV (test code = 13.5 % 12.1-15.4 788-0) PLT (test code = See_Comment [Automated 777-3) message] The sy stem which generated this result transmitted reference range : 150 - 328 10*3/ ?L. The reference r jesse was not used to interpret this result as normal/abnormal . MPV (test code = 10.3 fL 9.8-13 14081-1) NRBC/100 WBC (test See_Comment [Automat ed code = 1073779738) message] The system which generated this result transmitted reference range : 0.0 - 10.0 /100 WBCs. The refer ence range was not u sed to interpret th is result as normal/abnormal . NRBC x10^3 (test code See_Comment [Auto mated = 9745920431) message] The s ystem which generated this result transmitted reference range : 10*3/?L. The reference range was not used to interpret this result as normal/abnormal . GRAN MAT (NEUT) % 71.8 % (test code = 770-8) IMM GRAN % (test code 0.90 % = 9165459113) LYMPH % (test code = 17.0 % 736-9) MONO % (test code = 6.2 % 5905-5) EOS % (test code = 3.7 % 713-8) BASO % (test code = 0.4 % 706-2) GRAN MAT x10^3(ANC) 6.71 10*3/uL 1.99-6.95 (test code = 2065362094) IMM GRAN x10^3 (test 0.08 10*3/uL 0-0.06 H code = 5105656016) LYMPH x10^3 (test code 1.59 10*3/uL 1.09-3.23 = 731-0) MONO x10^3 (test code 0.58 10*3/uL 0.36-1.02 = 742-7) EOS x10^3 (test code = 0.35 10*3/uL 0.06-0.53 711-2) BASO x10^3 (test code 0.04 10*3/uL 0.01-0.09 = 704-7) Lab Interpretation Abnormal (test code = 79725-6) [facility] (NA, K, CL, CO2, GLUCOSE, BUN, CREATININE, CA)2019-03-27 14:07:00 Test Item Value Reference Range Interpretation Comments NA (test code = 141 mmol/L 135-145 8447686361) K (test code = 4.5 mmol/L 3.5-5 1628239165) CL (test code = 102 mmol/L 98-108 1421011263) CO2 TOTAL (test code = 27 mmol/L 23-31 6175095376) AGAP (test code = 2-16 3922100855) BUN (test code = 44 mg/dL 7-23 H 4185984408) GLUCOSE (test code = 291 mg/dL 70-110 H 6214743261) CREATININE (test code = 7.35 mg/dL 0.6-1.25 H 7353665926) CALCIUM (test code = 9.5 mg/dL 8.6-10.6 1438199817) eGFR Calculation mL/min/1.73m2 (Non-) (test code = 3911617737) eGFR Calculation mL/min/1.73m2 () (test code = 7020680476) CRISTIANA (test code = CRISTIANA) Association of [...] tests). Lab Interpretation Abnormal (test code = 25791-0) [facility]
[2021-11-04 08:28] LABS: SARS-COV-2 RT PCR NEGATIVE (NEGATIVE)
--- NOTE | 2021-11-04 09:09 | ER ---
Nurse's Notes [facility] Name: Nikita Bartlett Age: 45 yrs Sex: Male : 1975 Arrival Date: 11/04/2021 Time: 06:57 Bed 13 Private MD: Diagnosis: Other specified fever Presentation: 11/04 07:13 Chief complaint: Patient states: felt like he had fever last night and he had a iw headache, took some tylenol and fever and headache are gone, went to dialysis and was told he may need to get a COVId swab just o be safe. Coronavirus screen: Client presents with at least one sign or symptom that may indicate coronavirus-19. Ebola Screen: Patient negative for fever greater than or equal to 101.5 degrees Fahrenheit, and additional compatible Ebola Virus Disease symptoms Patient denies exposure to infectious person. Patient denies travel to an Ebola-affected area in the 21 days before illness onset. No symptoms or risks identified at this time. Initial Sepsis Screen: Does the patient meet any 2 criteria? No. Patient's initial sepsis screen is negative. Does the patient have a suspected source of infection? No. Patient's initial sepsis screen is negative. Risk Assessment: Do you want to hurt yourself or someone else? Patient reports no desire to harm self or others. Onset of symptoms was November 03, 2021. 07:13 Method Of Arrival: Ambulatory 07:13 Acuity: OCTAVIO 4 iw Historical: - Allergies: 07:14 No Known Allergies; iw - PMHx: 07:14 "Leaking heart valve"; Anemia; Diabetes - NIDDM; Dialysis; Enlarged Heart; iw Hypertension; osteomyelitis; - Immunization history:: Adult Immunizations unknown. - Social history:: Smoking status: unknown. Screenin:21 Abuse screen: Denies threats or abuse. Nutritional screening: No deficits noted. jd3 Tuberculosis screening: No symptoms or risk factors identified. Fall Risk Ambulatory Aid- None/Bed Rest/Nurse Assist (0 pts). Gait- Normal/Bed Rest/Wheelchair (0 pts) Mental Status- Oriented to own ability (0 pts). Total Tejada Fall Scale indicates No Risk (0-24 pts). Assessment: 07:19 General: Appears in no apparent distress. comfortable, Behavior is calm, cooperative, jd3 appropriate for age, Reports fever that started last night. no fever noted today. Pain: Denies pain. Neuro: Level of Consciousness is awake, alert, obeys commands, Oriented to person, place, time, situation. Cardiovascular: Denies chest pain, Heart tones present Capillary refill < 3 seconds Patient's skin is warm and dry. Respiratory: Airway is patent Respiratory effort is even, unlabored, Respiratory pattern is regular, symmetrical, Breath sounds are clear bilaterally. Denies cough, shortness of breath. GI: No signs and/or symptoms were reported involving the gastrointestinal system. Patient currently denies diarrhea, nausea, vomiting. : No signs and/or symptoms were reported regarding the genitourinary system. EENT: No signs and/or symptoms were reported regarding the EENT system. Derm: Skin is intact, Skin is dry, Skin is normal, Skin temperature is warm. Musculoskeletal: Circulation, motion, and sensation intact. Range of motion: intact in all extremities. 08:15 Reassessment: Patient appears in no apparent distress at this time. No changes from jd3 previously documented assessment. Patient and/or family updated on plan of care and expected duration. Pain level reassessed. Patient is alert, oriented x 3, equal unlabored respirations, skin warm/dry/pink. 09:07 Reassessment: Patient appears in no apparent distress at this time. No changes from jd3 previously documented assessment. Patient and/or family updated on plan of care and expected duration. Pain level reassessed. Patient is alert, oriented x 3, equal unlabored respirations, skin warm/dry/pink. awaiting results. Vital Signs: 07:13 BP 180 / 96; Pulse 89; Resp 16; Temp 98.2; Pulse Ox 98% on R/A; Weight 109.6 kg; Height iw 5 ft. 9 in. (175.26 cm); 08:15 BP 173 / 90; Pulse 70; Resp 16 S; Pulse Ox 95% on R/A; jd3 09:08 BP 181 / 98; Pulse 72; Resp 17 S; Pulse Ox 95% on R/A; jd3 07:13 Body Mass Index 35.68 (109.60 kg, 175.26 cm) ED Course: 06:57 Patient arrived in ED. kz 07:07 Cyril Peterson RN is Primary Nurse. jd3 07:12 Paulino Barth MD is Attending Physician. kdr 07:14 Triage completed. iw 07:15 Arm band placed on. iw 07:21 Patient has correct armband on for positive identification. Bed in low position. Call jd3 light in reach. Side rails up X 1. Pulse ox on. NIBP on. 09:16 No provider procedures requiring assistance completed. Patient did not have IV access jd3 during this emergency room visit. Administered Medications: No medications were administered Outcome: 09:08 Discharge ordered by . kdr 09:17 Discharged to home ambulatory. jd3 09:17 Condition: stable 09:17 Discharge instructions given to patient, Instructed on discharge instructions, follow up and referral plans. Demonstrated understanding of instructions, follow-up care. 09:18 Patient left the ED. jd3 Signatures: Paulino Barth MD MD kdr Cheryl Montano, RN RN iw Cyril Peterson RN RN jNusrat Matias Corrections: (The following items were deleted from the chart) 07:15 07:13 BP 180 / 96; Pulse 89bpm; Resp 16bpm; Pulse Ox 98% RA; Temp 98.2F; iw iw 07:15 07:14 PMHx: osteomyolitis; iw iw
--- NOTE | 2021-11-04 09:09 | EDPHYS ---
Physician Documentation [facility] Name: Nikita Bartlett Age: 45 yrs Sex: Male : 1975 Arrival Date: 11/04/2021 Time: 06:57 Bed 13 Private MD: ED Physician Paulino Barth HPI: 11/04 12:50 This 45 yrs old Male presents to ER via Ambulatory with complaints of Fever. kdr 12:50 The patient reports fever, not measured (subjective). Onset: The symptoms/episode kdr began/occurred last night. Modifying factors: Recent medications: acetaminophen, Denies contact with similarly ill indivduals. Associated signs and symptoms: Pertinent positives: None. Pertinent negatives:. Severity of symptoms: At their worst the symptoms were very mild mild in the emergency department the symptoms have resolved. The patient has not experienced similar symptoms in the past. The patient has not recently seen a physician. Last evening patient felt like he had a fever and he had a mild headache. He took some Tylenol and the fever and headache resolved. Today when he went to dialysis, they upon hearing this news, told the patient he needed to come to the ED to get a COVID swab. Patient is currently without any symptoms and without any complaint. His only request is for a COVID test.. Historical: - Allergies: 07:14 No Known Allergies; iw - PMHx: 07:14 "Leaking heart valve"; Anemia; Diabetes - NIDDM; Dialysis; Enlarged Heart; iw Hypertension; osteomyelitis; - Immunization history:: Adult Immunizations unknown. - Social history:: Smoking status: unknown. ROS: 12:50 Constitutional: Negative for chills, and weight loss, patient did have subjective fever kdr last evening Eyes: Negative for injury, pain, redness, and discharge, Neck: Negative for injury, pain, and swelling, Cardiovascular: Negative for chest pain, palpitations, and edema, Respiratory: Negative for shortness of breath, cough, wheezing, and pleuritic chest pain, Abdomen/GI: Negative for abdominal pain, nausea, vomiting, diarrhea, and constipation, Back: Negative for injury and pain, : Negative for injury, bleeding, discharge, and swelling, MS/Extremity: Negative for injury and deformity, Skin: Negative for injury, rash, and discoloration, Neuro: Negative for headache, weakness, numbness, tingling, and seizure activity. Psych: Negative for depression, anxiety, suicide ideation, homicidal ideation, and hallucinations, Allergy/Immunology: Negative for hives, rash, and allergies, Endocrine: Negative for neck swelling, polydipsia, polyuria, polyphagia, and marked weight changes, Hematologic/Lymphatic: Negative for swollen nodes, abnormal bleeding, and unusual bruising. Exam: 12:50 Constitutional: This is a well developed, well nourished patient who is awake, alert, kdr and in no acute distress. Head/Face: Normocephalic, atraumatic. Eyes: Pupils equal round and reactive to light, extra-ocular motions intact. Lids and lashes normal. Conjunctiva and sclera are non-icteric and not injected. Cornea within normal limits. Periorbital areas with no swelling, redness, or edema. Chest/axilla: Normal chest wall appearance and motion. Nontender with no deformity. No lesions are appreciated. Cardiovascular: Regular rate and rhythm with a normal S1 and S2. No gallops, murmurs, or rubs. Normal PMI, no JVD. No pulse deficits. Respiratory: Lungs have equal breath sounds bilaterally, clear to auscultation and percussion. No rales, rhonchi or wheezes noted. No increased work of breathing, no retractions or nasal flaring. Abdomen/GI: Soft, non-tender, with normal bowel sounds. No distension or tympany. No guarding or rebound. No evidence of tenderness throughout. Back: No spinal tenderness. No costovertebral tenderness. Full range of motion. Skin: Warm, dry with normal turgor. Normal color with no rashes, no lesions, and no evidence of cellulitis. Vital Signs: 07:13 BP 180 / 96; Pulse 89; Resp 16; Temp 98.2; Pulse Ox 98% on R/A; Weight 109.6 kg; Height iw 5 ft. 9 in. (175.26 cm); 08:15 BP 173 / 90; Pulse 70; Resp 16 S; Pulse Ox 95% on R/A; jd3 09:08 BP 181 / 98; Pulse 72; Resp 17 S; Pulse Ox 95% on R/A; jd3 07:13 Body Mass Index 35.68 (109.60 kg, 175.26 cm) iw MDM: 09:08 Patient medically screened. kdr 12:50 Data reviewed: vital signs, nurses notes, lab test result(s), radiologic studies. kdr Counseling: I had a detailed discussion with the patient and/or guardian regarding: the historical points, exam findings, and any diagnostic results supporting the discharge/admit diagnosis, lab results, radiology results, the need for outpatient follow up. 11/04 07:14 Order name: COVID-19/FLU A+B (Document "Date of Onset" if Symptomatic); Complete Time: eb 0911/04 07:14 Order name: Strep; Complete Time: : eb 11/04 07:45 Order name: Throat Culture EDMS Administered Medications: No medications were administered Disposition Summary: 11/04/21 09:08 Discharge Ordered Location: Home kdr Problem: new kdr Symptoms: are resolved kdr Condition: Stable kdr Diagnosis - Other specified fever kdr Followup: kdr - With: Private Physician - When: 2 - 3 days - Reason: If symptoms return, Further diagnostic work-up, Recheck today's complaints, Continuance of care, Re-evaluation by your physician Discharge Instructions: - Discharge Summary Sheet kdr - Fever, Adult, Bzzp-ef-Dhzj kdr Forms: - Medication Reconciliation Form kdr - Thank You Letter kdr Signatures: Dispatcher [employer] EDMS Paulino Barth MD MD kdr Cehryl Montano RN RN iw Davies, Jonathon RN RN jd3 Corrections: (The following items were deleted from the chart) 07:15 07:14 PMHx: osteomyolitis; [facility]
[2021-11-04 09:24] VITALS: TEMP 98.2
[2021-11-04 09:25] VITALS: O2SAT 95
[2021-11-04 09:26] VITALS: BP 181/98
== END 2021-11-04 09:18 | disposition home or self-care (01) ==
LOC: ER 06:36
DX: R50.9 Fever, unspecified (principal); E11.9 Type 2 diabetes mellitus without complications; I10 Essential (primary) hypertension; Z99.2 Dependence on renal dialysis; Z20.822 Contact with and (suspected) exposure to COVID-19
CPT/HCPCS: 87070; 87081; 0240U; 99283

== ENCOUNTER 2022-06-02 11:26 | Emergency (ER) | payer OTHER ==
--- OUTSIDE RECORDS SUMMARY | 2022-06-02 11:33 | XMS REPORT | Continuity of Care Document ---
:1975 Author Organization [facility] t Address 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, Leona A Attending Clinician DEBRA TREJO Admitting Clinician Unavailable TIMOTHY EARL Admitting Clinician Unavailable DELVIN MULLINS Admitting Clinician Unavailable MD DELVIN MULLINS Admitting Clinician Unavailable Debra Trejo MD Admitting Clinician Payers Payer Name Policy Type Policy Effective Date Expiration Date Sour ce Number MEDICARE PART A [id number] 2019 \\T\\ B 00:00:00 OLATHE [id number] 2020 BENEFITS 00:00:00 MEDICARE NOVITAS MB [id number] 2019 [facility] 00:00:00 - [facility] [id number] 2017 SELECT 00:00:00 Problems Condition Condition Condition Status Onset Resolution Last Treating Co mments Source Name Details Category Date Date Treatment Clinician Date ESRD (end ESRD (end Disease Active Overview: Methodi stage stage [address] renal renal 00:00: g of this Hospita disease) disease) 00 note l might be different from the original. Added automatic ally from request for surgery [id number] Anemia of Anemia of Disease Active Met [...] catheter, for initial initial surgery encounter encounter [id number] Infection Infection Disease Active Overview: Univers associated associated 01-27 Formattin ity of with with 00:00: g of this [place] peritoneal peritoneal 00 note Me dical dialysis dialysis might be Bran catheter, catheter, different initial initial from the encounter encounter original. Added automatic ally from request for surgery [id number] Obesity Obesity Disease Active Methodi (BMI (BMI - st 30-39.9) 30-39.9) 00:00: Hospit a 00 l ESRD (end ESRD (end Disease Active Overview: Univers stage stage 9 Formattin ity of renal renal 00:00: g of this [place] disease) disease) 00 note Medica l on on might be Branch dialysis dialysis different from the original. Added automatic ally from request for surgery [id number] Essential Essential Disease Active Met hodi hypertensi hypertensi 07-16 st on on 00:00: Hospita 00 l Hypertrigl Hypertrigl Disease Active M ethodi yceridemia yceridemia 07-16 00:00: Hospita 00 l Tobacco Tobacco Disease Active Univers use use 07-16 ity of disorder disorder 00:00: [place] [facility] [id number] Kidney Problem Active Common disease [facility] - [facility] [id number] LVH (left Problem Active Comm on ventricula [facility] r - [facility] [id number] Mixed Problem Active Common hyperlipid [facility] emia [facility] [id number] Type 2 Problem Active Common diabetes [facility] mellitus - [facility] without complicati [facility] on, Medical without Center long-term current use of insulin [id number] Vitamin D Problem Active Comm on deficiency [facility] [id number] Dependence Problem Active Co mmon on renal Spirit dialysis [facility] [id number] Abnormal Problem Active Commo n gait [facility] [id number] HTN, goal Problem Active Comm on below Spirit 130/80 - [facility] [id number] [place] [address] osteoarthr Spirit itis of [facility] right knee [facility] [id number] Seasonal Problem Active Comm on allergies Spirit [facility] [id number] Morbid Problem Active Common (severe) Spirit obesity - [facility] due to [facility] Allergies, Adverse Reactions, Alerts Allergy Allergy Status Severity Reaction(s) Onset Inactive Treating Comm ents Source Name Type Date Date Clinician NO KNOWN Drug Active Univers ALLERGIE Class ity of S [facility] [place] [facility] Family History Family Member Diagnosis Comments Start Date Stop Date Source Natural father Diabetes [facility] Natural father Multiple myeloma Meth [facility] [place] Natural mother Diabetes [facility] [place] [facility] Natural [facility] Social History Social Habit Start Date Stop Date Quantity Comments Source History of Tobacco [facility] - Use [facility] History [facility] University o f Alcohol Frequency [facility] [place] History [facility] University o f Alcohol Std Drinks [facility] [place] [facility] History [facility] University o f Alcohol Binge [facility] Exposure to 2022-02-02 2022-02-12 Unable to assess Univers ity of SARS-CoV-2 (event) 00:00:00 10:16:00 [facility] [place] [facility] Alcohol intake 2020-03-17 2020-03-17 Ex-drinker Religious 00:00:00 00:00:00 (finding) Hospital Cigarette 2020-03-10 2020-03-10 Religious pack-years 00:00:00 00:00:00 Hospital Cigarettes smoked 2020-03-10 2020-03-[address] current (pack per 00:00:00 00:00:00 Hospita l ) - Reported Tobacco use and 2019-03-25 2019-03-25 User of smokeless Un iversity of exposure 00:00:00 00:00:00 tobacco [facility] [place] [facility] Tobacco Comment 2016-07-16 2016-07-16 1-2 packs daily Univ ersity of 00:00:00 00:00:00 sometimes; other [facility] dical times could be 1 Branch week. ; chewing tobacco - 25 years; 1 can every other day. Alcohol Comment 2016-07-16 2016-07-16 occasional Universit y of 00:00:00 00:00:00 [facility] [place] [facility] Sex Ass[birth year] At [birth year] Religious 00:00:00 00:00:00 [facility] Smoking Status Start Date Stop Date Source Former Smoker 2020-06-15 00:00:00 2020-06-15 00:00:00 Common S pirit - [facility] Ce nter Current every day 2018-01-06 00:00:00 [facility] Medications Ordered Filled Start Stop Current Ordering Indication Dosage Frequency Signature Comments Components Source Medication Medication Date Date Medication? Clinician (SIG) Name Name clindamycin 0 2021- No 600mg 600 mg, IV Univers (CLEOCIN) 02-12 Piggyback, ity of injection 18:15: 18:12 ONCE, 1 [place] 600 mg 00 :00 dose, On Medical 02/12/22 Branch at 1315, REYNALDO
Re ason for Anti-Infec tive: Documented Infection< br>Documen kamila Infection Site: Skin / Soft Tissue
Duration of Therapy: 10 days
Re stricted use approved by: ED PROVIDER clindamycin 0 202- No [id number] 450mg Take 3 Univers 150 mg 02-12 capsules ity of capsule 00:00: 04:59 by mouth [place] 00 :00 in the Medical morning Branch and 3 capsules at noon and 3 capsules in the evening. Do all this for 10 days. aspirin 81 2019-07 Yes Chew. Method i mg chewable 0-20 st tablet 10:39: Hospita 55 l liraglutide 2019-07 Yes 1.2mg QD Inject 1.2 Methodi (VICTOZA) 0-[address] 0.6 mg/0.1 10:39: the skin Hos [facility]ster mL (18 mg/3 55 daily. l mL) pen injector linaGLIPtin 2019- Yes 5mg QD Take 5 mg M ethodi (TRADJENTA) 0-[address] 5 mg tablet 10:39: daily. [facility]osp [facility] 55 l loratadine 2020 Yes 10mg QD Take 10 mg M ethodi (CLARITIN) 0-[address] 10 mg 10:39: daily. Hospita tablet 55 l cholecalcif 2019-07 Yes Take by Met hodi chadd, 0-[address] vitamin D3, 10:39: Hospit a (Vitamin 55 l D3) 125 mcg (5,000 unit) tablet insulin 2019-07 Yes Inject Methodi glargine,hu 0-20 under the [facility].rec.anlog 10:39: skin. Hospi ta (TOUJEO MAX 55 l U-300 SOLOSTAR SUBQ) aspirin 81 2019-07 Yes Chew. Method i [...] l cholecalcif 2019-07 Yes Take by Met hodi chadd, 0-[address] vitamin D3, 10:39: Hospit a (Vitamin 55 l D3) 125 mcg (5,000 unit) tablet insulin 2019-07 Yes Inject Methodi glargine,hu 0-20 under the [facility].rec.anlog 10:39: skin. Hospi ta (TOUJEO MAX 55 l U-300 SOLOSTAR SUBQ) BABY 2019-0 Yes Take by [facility] ASPIRIN 7-24 mouth. ity of ORAL 20:26: [place] 37 Medical Branch Cholecalcif 2020-0 Yes Take by Uni vers chadd, 7-24 mouth. ity of Vitamin D3, 20:26: [place] (VITAMIN 37 Medical D3) 5,000 Branch unit tablet loratadine 2020-0 Yes 10mg Take 10 mg U nivers (CLARITIN) 7-24 by mouth ity o f 10 mg 20:26: daily. [place] tablet Medical Branch liraglutide 2020-0 Yes inject Univ ers (VICTOZA 7-24 under the ity of 2-[place]) 20:26: skin. [place] [address] Medical Branch BABY 2020-0 Yes Take by Univers ASPIRIN 7-24 mouth. ity of ORAL 20:26: [place] [address] Medical Branch Cholecalcif 2020-0 Yes Take by Uni vers chadd, 7-24 mouth. ity of Vitamin D3, 20:26: [place] (VITAMIN 37 Medical D3) 5,000 Branch unit tablet loratadine 2020-0 Yes 10mg Take 10 mg U nivers (CLARITIN) 7-24 by mouth ity o f 10 mg 20:26: daily. [place] tablet Medical Branch liraglutide 2020-0 Yes inject Univ ers (VICTOZA 7-24 under the ity of 2-[place]) 20:26: skin. [place] [address] Medical Branch BABY 2020-0 Yes Take by Univers ASPIRIN 7-24 mouth. ity of ORAL 20:26: [place] [address] Medical Branch Cholecalcif 2020-0 Yes Take by Uni vers chadd, 7-24 mouth. ity of Vitamin D3, 20:26: [place] (VITAMIN 37 Medical D3) 5,000 Branch unit tablet loratadine 2020-0 Yes 10mg Take 10 mg U nivers (CLARITIN) 7-24 by mouth ity o f 10 mg 20:26: daily. [place] tablet Medical Branch liraglutide 2020-0 Yes inject Univ ers (VICTOZA 7-24 under the ity of 2-[place]ANS[place]) 20:26: skin. [place] [address] Medical Branch lactated 2020-0 Yes 1000mL at [...] (N/V), PACU BABY 2020-0 Yes Take by [facility] ASPIRIN 7 mouth. ity of ORAL 19:29: [address] Cholecalcif 2020-0 Yes Take by [facility] chadd, 7-24 mouth. ity of Vitamin D3, 19:29: [place] (VITAMIN [address] [place] [address] D3) 5,000 [place] unit tablet loratadine 2020-0 Yes 10mg Take 10 mg U nivers (CLARITIN) 724 by mouth ity o f 10 mg 19:29: daily. [address] liraglutide 2020-0 Yes inject [facility] ers (VICTOZA 24 under the ity of 2-[place]ANS[place]) 19:29: skin. [address] lactated 2020-0 2020- No 1000mL at [facility] 7-24 07-24 mL/hr, ity of infusion 16:00: 16:03 1,000 mL, Alfred as 1,000 mL 00 :00 IV Medical Infusion, [place] ONCE, 1 dose, Sat01/29/20 at 1100, Routine, [...] therapy: within 24 hours of surgery BABY 2019-0 Yes Take by Univers ASPIRIN 7-24 mouth. ity of ORAL 15:26: [place] [address] Medical Branch Cholecalcif 2020-0 Yes Take by Uni vers chadd, 7-24 mouth. ity of Vitamin D3, 15:26: [place] (VITAMIN 37 Medical D3) 5,000 Branch unit tablet loratadine 2020-0 Yes 10mg Take 10 mg U nivers (CLARITIN) 7-24 by mouth ity o f 10 mg 15:26: daily. [place] tablet 37 Medical Branch liraglutide 2020-0 Yes inject Univ ers (VICTOZA 7-24 under the ity of 2-[place]ANS[place]) 15:26: skin. [place] [address] Medical Branch BABY 2020-0 Yes Take by Univers ASPIRIN 7-24 mouth. ity of ORAL 13:26: [place] [address] Medical Branch Cholecalcif 2020-0 Yes Take by Uni vers chadd, 7-24 mouth. ity of Vitamin D3, 13:26: [place] (VITAMIN 51 Medical D3) 5,000 Branch unit tablet loratadine 2020-0 Yes 10mg Take 10 mg U nivers (CLARITIN) 7-24 by mouth ity o f 10 mg 13:26: daily. [place] tablet 51 Medical Branch liraglutide 2020-0 Yes inject Univ ers (VICTOZA 7-24 under the ity of 2-FRANS[place]CO [place]) 13:26: skin. [place] [address] Medical Branch Cholecalcif 2020-0 Yes Take by Uni vers chadd, - mouth. ity of Vitamin D3, 18:22: [place] (VITAMIN 12 Medical D3) 5,000 Branch unit tablet loratadine 2020-0 Yes 10mg Take 10 mg U nivers (CLARITIN) 7-23 by mouth ity o f 10 mg 18:22: daily. [place] tablet 12 Medical Branch liraglutide 2020-0 Yes inject Univ ers (VICTOZA 7-23 under the ity of 2-[place]) 18:22: skin. [place] [address] Medical Branch Cholecalcif 2020-0 Yes Take by Uni vers chadd, 7-23 mouth. ity of Vitamin D3, 18:22: [place] (VITAMIN 12 Medical D3) 5,000 Branch unit tablet loratadine 2020-0 Yes 10mg Take 10 mg U nivers (CLARITIN) 7-23 by mouth ity o f 10 mg 18:22: daily. [place] tablet 12 Medical Branch liraglutide 2020-0 Yes inject Univ ers (VICTOZA 7-23 under the ity of 2-[place]ANSISCO [place]) 18:22: skin. [place] 12 Medical Branch fluconazole 2020-0 Yes 200mg Take [...] tablet 00:00: mouth 00 daily. Medical Branch VICTOZA 2020-0 2020- No 1.2mg inject 1.2 Un denise 3-FRANSISCO 0.6 7-14 07-23 mg under ity o f mg/0.1 mL 00:00: 00:00 the skin [place] as (18 mg/3 00 :00 daily. Medical mL) 1.2mg/day Branch injection glimepiride 2020-0 Yes 4mg Take 4 mg M ethodi (AMARYL) 4 7-[address] MG tablet 00:00: Hospita 00 l glimepiride 2020-0 Yes 4mg Take 4 mg U nivers 4 mg tablet 7-13 by mouth ity of 00:00: daily. [place] [facility] glimepiride 2020-0 Yes 4mg Take 4 mg U nivers 4 mg tablet 7-13 by mouth ity of 00:00: daily. [place] [facility] glimepiride 2020-0 Yes 4mg Take 4 mg U nivers 4 mg tablet 7-13 by mouth ity of 00:00: daily. [place] [facility] glimepiride 2020-0 Yes 4mg Take 4 mg U nivers 4 mg tablet 7-13 by mouth ity of 00:00: daily. [place] [facility] glimepiride 2020-0 Yes 4mg Take 4 mg U nivers 4 mg tablet 7-13 by mouth ity of 00:00: daily. [place] [facility] glimepiride 2020-0 Yes 4mg Take 4 mg U nivers 4 mg tablet 7-13 by mouth ity of 00:00: daily. [place] [facility] glimepiride 2020-0 Yes 4mg Take [...] Units to ity of ointment 00:00: affected [place] [address] area(s) Medical daily. Branch Apply a nickel [...] day calcium 2020-0 Yes 667mg Take 667 Metho di acetate,joshua 1-[address] sphat bind, 00:00: mouth. [facility] (PHOSLO) 00 l 667 mg capsule calcium 2020-0 Yes 667mg Take 667 Unive [...] mg capsule BABY 2018-07 Yes Take by [facility] ASPIRIN 2-30 mouth. ity of ORAL 19:59: [address] Branch Cholecalcif 2018-07 Yes Take by Uni vers chadd, 2-30 mouth. ity of Vitamin D3, 19:59: [place] (VITAMIN [address] [place] [address] D3) 5,000 Branch unit tablet loratadine 2018-07 Yes 10mg Take 10 mg U nivers (CLARITIN) 2-30 by mouth ity o f 10 mg 19:59: daily. [place] [address] Medical Branch liraglutide 2018-07 Yes inject Univ ers (VICTOZA 2-30 under the ity of 2-[place]) 19:59: skin. [address] BABY 2018-07 Yes Take by Univers ASPIRIN 2-30 mouth. ity of ORAL 19:59: [address] Cholecalcif 2018-07 Yes Take by Uni vers chadd, 2-30 mouth. ity of Vitamin D3, 19:59: [facility] [address] [place] [address] D3) 5,000 [place] unit tablet loratadine 2018-07 Yes 10mg Take 10 mg U nivers (CLARITIN) 2-30 by mouth ity o f 10 mg 19:59: daily. [place] [address] Medical Branch liraglutide 2018-07 Yes inject Univ ers (VICTOZA 2-30 under the ity of 2-[place]) 19:59: skin. [address] BABY 2018-07 Yes Take by Univers ASPIRIN 2-30 mouth. ity of ORAL 19:59: [address] BABY 2018-07 Yes Take by Univers ASPIRIN 2-30 mouth. ity of ORAL 19:59: [address] traMADol 50 2018-07 Yes [id number] 50mg Take 1 Univers mg tablet 2-30 tablet by ity o f 00:00: mouth [place] 00 every 6 Medical (six) Branch hours as needed for Pain (scale 7-10). traMADol 50 2018-07 Yes [id number] 50mg Take 1 Univers mg tablet 2-30 tablet by ity o f 00:00: mouth [place] 00 every 6 Medical (six) Branch hours as needed for Pain (scale 7-10). traMADol 50 2018-07 Yes [id number] 50mg Take 1 Univers mg tablet 2-30 tablet by ity o f 00:00: mouth [place] 00 every 6 Medical (six) Branch hours as needed for Pain (scale 7-10). traMADol 50 2018-07 Yes [id number] 50mg Take 1 Univers mg tablet 2-30 tablet by ity o f 00:00: mouth [place] 00 every 6 Medical (six) Branch hours as needed for Pain (scale 7-10). traMADol 50 2018-07 Yes [id number] 50mg Take 1 Univers mg tablet 2-30 tablet by ity o f 00:00: mouth [place] 00 every 6 Medical (six) Branch hours as needed for Pain (scale 7-10). traMADol 50 2018- 2020- No [id number] 50mg Take 1 Univers mg tablet 2-30 07-24 tablet by ity of 00:00: 00:00 mouth [place] 00 :00 every 6 Medical (six) Branch hours as needed for Pain (scale 7-10). Pen Goode Pen Goode 2018-07 Yes Todd 1 pen Common 16" 316" 0-02 [place] needle Spirit 00:00: with - [facility] 00 [facility] Pen Goode Pen Goode 2018-07 No QD Pen 09/20" 31G X 09/20" 31G X 0-02 Goode 5 MM 5 MM 00:00: 16" 31G 00 X 5 MM BABY Yes Take by Univers ASPIRIN 9-20 mouth. ity of ORAL 18:03: [address] Cholecalcif Yes Take by Uni vers chadd, 9- mouth. ity of Vitamin D3, 18:03: [place] (VITAMIN [address] [place] [address] D3) 5,000 Branch unit tablet loratadine Yes 10mg Take 10 mg U nivers (CLARITIN) -20 by mouth ity o f 10 mg 18:03: daily. [address] liraglutide Yes inject Univ ers (VICTOZA 03-27 under the ity of 2-[place]) 18:03: skin. [address] morpHINE 2018-0 Yes 4mg 4 mg, Slow Uni vers injection 4 03-27 IV Push, ity of mg 16:25: Q5MIN PRN, [place] 03 3 doses, Medical Starting Branch Sat03/27/19 at 1125, Until Discontinu ed, Routine, Pain (scale 7-10), PACU FENTanyl PF 2018-0 Yes 50ug 50 mcg, Uni vers (SUBLIMAZE - Slow IV ity of (PF)) 16:25: Push, [...] 15:56: Fri [place] (SENSORCAIN 00 03/27/[address] d[address] 1056, Branch W/EPINEPHRI Until NE) 0.25 Discontinu %-1:200,000 ed, injection Routine, Intra-op lidocaine 2019-0 Yes PRN, Univers 1% (PF) 03-27 Starting ity of (XYLOCAINE) 15:34: Fri [place] injection 00 03/27/19 at [facility] 1034, Branch Until Discontinu ed, Routine, Intra-op insulin 2018-0 2019- No 5U 5 Units, Unive rs regular 03-27 09-20 IV Push, ity of human 15:00: 14:54 [...] ed, Routine, DSU Pre-op acetaminoph 2019-0 Yes [id number] 1000mg Take 2 Univers en (TYLENOL 9-20 tablets by it y of EXTRA 00:00: mouth [place] STRENGTH) 00 every 8 Medical 500 mg (eight) Branch tablet hours as needed for Pain. traMADol 50 2019-0 Yes [id number] 50mg Take 1 Univers mg tablet 9-20 tablet by ity o f 00:00: mouth [place] 00 every 6 Medical (six) Branch hours as needed for Pain (scale 4-6). acetaminoph 2019-0 Yes [id number] 1000mg Take 2 Univers en (TYLENOL 9-20 tablets by it y of EXTRA 00:00: mouth [place] STRENGTH) 00 every 8 Medical 500 mg (eight) Branch tablet hours as needed for Pain. traMADol 50 2019-0 Yes [id number] 50mg Take 1 Univers mg tablet 9-20 tablet by ity o f 00:00: mouth [place] 00 every 6 Medical (six) Branch hours as needed for Pain (scale 4-6). acetaminoph 2019-0 Yes [id number] 1000mg Take 2 Univers en (TYLENOL 9-20 tablets by it y of EXTRA 00:00: mouth [place] STRENGTH) 00 every 8 Medical 500 mg (eight) Branch tablet hours as needed for Pain. traMADol 50 2019-0 Yes [id number] 50mg Take 1 Univers mg tablet 9-20 tablet by ity o f 00:00: mouth [place] 00 every 6 Medical (six) Branch hours as needed for Pain (scale 4-6). acetaminoph 2019-0 Yes [id number] 1000mg Take 2 Univers en (TYLENOL 9-20 tablets by it y of EXTRA 00:00: mouth [place] STRENGTH) 00 every 8 Medical 500 mg (eight) Branch tablet hours as needed for Pain. traMADol 50 2019-0 Yes [id number] 50mg Take 1 Univers mg tablet 9-20 tablet by ity o f 00:00: mouth [place] 00 every 6 Medical (six) Branch hours as needed for Pain (scale 4-6). acetaminoph 2019-0 Yes [id number] 1000mg Take 2 Univers en (TYLENOL 9-20 tablets by it y of EXTRA 00:00: mouth [place] STRENGTH) 00 every 8 Medical 500 mg (eight) Branch tablet hours as needed for Pain. traMADol 50 2019-0 Yes [id number] 50mg Take 1 Univers mg tablet 9-20 tablet by ity o f 00:00: mouth [place] 00 every 6 Medical (six) Branch hours as needed for Pain (scale 4-6). acetaminoph 2019-0 Yes [id number] 1000mg Take 2 Univers en (TYLENOL 9-20 tablets by it y of EXTRA 00:00: mouth [place] STRENGTH) 00 every 8 Medical 500 mg (eight) Branch tablet hours as needed for Pain. traMADol 50 2019-0 Yes [id number] 50mg Take 1 Univers mg tablet 9-20 tablet by ity o f 00:00: mouth [place] 00 every 6 Medical (six) Branch hours as needed for Pain (scale 4-6). acetaminoph 2019-0 Yes [id number] 1000mg Take 2 Univers en (TYLENOL 9-20 tablets by it y of EXTRA 00:00: mouth [place] STRENGTH) 00 every 8 Medical 500 mg (eight) Branch tablet hours as needed for Pain. traMADol 50 2019-0 Yes [id number] 50mg Take 1 Univers mg tablet 9-20 tablet by ity o f 00:00: mouth [place] 00 every 6 Medical (six) Branch hours as needed for Pain (scale 4-6). acetaminoph 2019-0 Yes [id number] 1000mg Take 2 Univers en (TYLENOL 9-20 tablets by it y of EXTRA 00:00: mouth [place] STRENGTH) 00 every 8 Medical 500 mg (eight) Branch tablet hours as needed for Pain. traMADol 50 2019-0 Yes [id number] 50mg Take 1 Univers mg tablet 9-20 tablet by ity o f 00:00: mouth [place] 00 every 6 Medical (six) Branch hours as needed for Pain (scale 4-6). acetaminoph 2019-0 Yes [id number] 1000mg Take 2 Univers en (TYLENOL 9-20 tablets by it y of EXTRA 00:00: mouth [place] STRENGTH) 00 every 8 Medical 500 mg (eight) Branch tablet hours as needed for Pain. traMADol 50 2019-0 Yes [id number] 50mg Take 1 Univers mg tablet 9-20 tablet by ity o f 00:00: mouth [place] 00 every 6 Medical (six) Branch hours as needed for Pain (scale 4-6). acetaminoph 2019-0 Yes [id number] 1000mg Take 2 Univers en (TYLENOL 9-20 tablets by it y of EXTRA 00:00: mouth [place] STRENGTH) 00 every 8 Medical 500 mg (eight) Branch tablet hours as needed for Pain. traMADol 50 2019-0 Yes [id number] 50mg Take 1 Univers mg tablet 9-20 tablet by ity o f 00:00: mouth [place] 00 every 6 Medical (six) Branch hours as needed for Pain (scale 4-6). acetaminoph 2019-0 Yes [id number] 1000mg Take 2 Univers en (TYLENOL 9-20 tablets by it y of EXTRA 00:00: mouth [place] STRENGTH) 00 every 8 Medical 500 mg (eight) Branch tablet hours as needed for Pain. traMADol 50 2019-0 Yes [id number] 50mg Take 1 Univers mg tablet 9-20 [...] ASPIRIN 9-05 mouth. ity of ORAL 19:19: [place] [address] Medical Branch Cholecalcif Yes Take by Uni vers chadd, 9-05 mouth. ity of Vitamin D3, 19:19: [place] (VITAMIN 49 Medical D3) 5,000 Branch unit tablet loratadine Yes 10mg Take 10 mg U nivers (CLARITIN) 9-05 by mouth ity o f 10 mg 19:19: daily. [place] tablet 49 Medical Branch BABY Yes Take by Univers ASPIRIN 9-05 mouth. ity of ORAL 19:19: [address] Branch Cholecalcif Yes Take by Uni vers chadd, 9-05 mouth. ity of Vitamin D3, 19:19: [place] (VITAMIN 49 Medical D3) 5,000 Branch unit tablet loratadine Yes 10mg Take 10 mg U nivers (CLARITIN) 9-05 by mouth ity o f 10 mg 19:19: daily. [place] tablet 49 Medical Branch BABY Yes Take by Univers ASPIRIN 9-05 mouth. ity of ORAL 19:19: [place] [address] Medical Branch Cholecalcif 0 Yes Take by Uni vers chadd, 9-05 mouth. ity of Vitamin D3, 19:19: [place] (VITAMIN 49 Medical D3) 5,000 Branch unit tablet loratadine Yes 10mg Take 10 mg U nivers (CLARITIN) 9-05 by mouth ity o f 10 mg 19:19: daily. [place] tablet 49 Medical Branch BABY Yes Take by Univers ASPIRIN 9-05 mouth. ity of ORAL 19:19: [place] [address] Medical Branch Cholecalcif Yes Take by Uni vers chadd, 9-05 mouth. ity of Vitamin D3, 19:19: [place] (VITAMIN 49 Medical D3) 5,000 Branch unit tablet loratadine Yes 10mg Take 10 mg U nivers (CLARITIN) 9-05 by mouth ity o f 10 mg 19:19: daily. [place] tablet 49 Medical Branch BABY Yes Take by Univers ASPIRIN 9-05 mouth. ity of ORAL 19:19: [place] [address] Medical Branch Cholecalcif Yes Take by Uni vers chadd, 9-05 mouth. ity of Vitamin D3, 19:19: [place] (VITAMIN 49 Medical D3) 5,000 Branch unit tablet loratadine Yes 10mg Take 10 mg U nivers (CLARITIN) 9-05 by mouth ity o f 10 mg 19:19: daily. [place] tablet 49 Medical Branch BABY Yes Take by Univers ASPIRIN 9-05 mouth. ity of ORAL 19:19: [place] [address] Medical Branch Cholecalcif Yes Take by Uni vers chadd, 9-05 mouth. ity of Vitamin D3, 19:19: [place] (VITAMIN 49 Medical D3) 5,000 Branch unit tablet loratadine Yes 10mg Take 10 mg U nivers (CLARITIN) 9-05 by mouth ity o f 10 mg 19:19: daily. [place] [address] Medical Branch doxazosin Yes TAKE 1 Method i (CARDURA) 2 8-[address] MG tablet 00:00: MOUTH [facility] 00 TWICE A l DAY atorvastati Yes 10mg Take 10 mg Methodi n (LIPITOR) 8-[address] 10 mg 00:00: Hospita tablet 00 l doxazosin 2 Yes TAKE 1 Univ ers mg tablet 8-26 TABLET BY ity o f 00:00: MOUTH [place] TWICE A Medical DAY Branch atorvastati Yes 10mg Take 10 mg Univers n 10 mg 8-26 by mouth ity of tablet 00:00: daily. [place] [address] [facility] [place] doxazosin 2 Yes TAKE 1 Univ ers mg tablet 8-26 TABLET BY ity o f 00:00: MOUTH [place] TWICE A Medical DAY Branch atorvastati Yes [...] MOUTH TWICE A Medical DAY Branch doxazosin Yes TAKE 1 Method i (CARDURA) 2 8-[address] MG tablet 00:00: MOUTH [facility]ospita TWICE A l DAY atorvastati Yes 10mg Take 10 mg Methodi n (LIPITOR) 8-[address] 10 mg 00:00: Hospita tablet atorvastati Yes 10mg Take 10 mg Univers [...] by mouth ity of tablet 00:00: daily. [place] [facility] doxazosin 2 Yes TAKE 1 Univ ers mg tablet 8-26 TABLET BY ity o f 00:00: MOUTH [place] TWICE A Medical DAY Branch atorvastati 0 Yes 10mg Take 10 mg Univers n 10 mg 8-26 by mouth ity of tablet 00:00: daily. [place] [facility] doxazosin 2 Yes TAKE 1 Univ ers mg tablet 8-26 TABLET BY ity o f 00:00: MOUTH [place] [address] TWICE A Medical DAY Branch atorvastati Yes 10mg Take 10 mg Univers n 10 mg 8-26 by mouth ity of tablet 00:00: daily. [place] [facility] calcium 2018-0 Yes TAKE BY Univers acetate 667 7-25 MOUTH 1 ity o f mg capsule 00:00: [place]SULE 3 [place] 00 TIMES A Medical DAY WITH Branch FOOD AND 1 CAPSUE 2 TIMES WITH SNACKS calcium 2018- Yes TAKE BY Univers acetate 667 7-25 MOUTH 1 ity o f mg capsule 00:00: [place]LE 3 [place] 00 TIMES A Medical DAY WITH Branch FOOD AND 1 CAPSUE 2 TIMES WITH SNACKS calcium 2018- Yes TAKE BY Univers acetate 667 7-25 MOUTH 1 ity o f mg capsule 00:00: [place]LE 3 [place] 00 TIMES A Medical DAY WITH Branch FOOD AND 1 CAPSUE 2 TIMES WITH SNACKS calcium 2018-0 Yes TAKE BY Univers acetate 667 7-25 MOUTH 1 ity o f mg capsule 00:00: CAPSULE 3 [place] 00 TIMES A Medical DAY WITH Branch FOOD AND 1 CAPSUE 2 TIMES WITH SNACKS calcium 2019-0 Yes TAKE BY Univers acetate 667 7-25 MOUTH 1 ity o f mg capsule 00:00: CAPSULE 3 [place] 00 TIMES A Medical DAY WITH Branch FOOD AND 1 CAPSUE 2 TIMES WITH SNACKS calcium 2018-0 Yes TAKE BY Univers acetate 667 7-25 MOUTH 1 ity o f mg capsule 00:00: CAPSULE 3 [place] 00 TIMES A Medical DAY WITH Branch FOOD AND 1 CAPSUE 2 TIMES WITH SNACKS calcium 2019-0 Yes TAKE BY Univers acetate 667 7-25 MOUTH 1 ity o f mg capsule 00:00: CAPSULE 3 [place] 00 TIMES A Medical DAY WITH Branch FOOD AND 1 CAPSUE 2 TIMES WITH SNACKS calcium Yes TAKE BY [place] [address] 01-29 MOUTH 1 ity o f mg capsule 00:00: CAPSULE 3 [place] 00 TIMES A Medical DAY WITH Branch FOOD AND 1 CAPSUE 2 TIMES WITH SNACKS calcium Yes TAKE BY [place] [address] 01-29 MOUTH 1 ity o f mg capsule 00:00: CAPSULE 3 [place] 00 TIMES A Medical DAY WITH Branch FOOD AND 1 CAPSUE 2 TIMES WITH SNACKS calcium 2020- No TAKE BY [place] [address] 01-29 MOUTH 1 ity of mg capsule 00:00: 00:00 CAPSULE 3 [place] :00 TIMES A Medical DAY WITH Branch FOOD AND 1 CAPSUE 2 TIMES WITH SNACKS calcium 2020- No TAKE BY [place] [address] 01-29 MOUTH 1 ity of mg capsule 00:00: 00:00 CAPSULE 3 [place] 00 :00 TIMES A Medical DAY WITH Branch FOOD AND 1 CAPSUE 2 TIMES WITH SNACKS calcium 2020- No TAKE BY [place] [address] 01-29 MOUTH 1 ity of mg capsule 00:00: 00:00 CAPSULE 3 [place] 00 :00 TIMES A Medical DAY WITH Branch FOOD AND 1 CAPSUE 2 TIMES WITH SNACKS furosemide Yes TAKE 1 Metho di (LASIX) 40 7-[address] mg tablet 00:00: MOUTH [facility]osp[facility] 00 TWICE A l DAY metoprolol Yes TAKE 1 Metho di tartrate 7-[address] (LOPRESSOR) 00:00: MOUTH Hospi ta 50 mg 00 TWICE A l tablet DAY furosemide Yes TAKE 1 Metho di (LASIX) 40 7-[address] mg tablet 00:00: MOUTH [facility] 00 TWICE A l DAY metoprolol Yes TAKE 1 Metho di tartrate 7-[address] (LOPRESSOR) 00:00: MOUTH Hospi ta 50 mg 00 TWICE A l tablet DAY furosemide Yes TAKE 1 Unive rs 40 [...] 00:00: TWICE A Medical DAY Branch furosemide Yes TAKE 1 Unive rs 40 mg 7-22 TABLET BY ity of tablet 00:00: MOUTH TWICE A Medical DAY Branch metoprolol 20190 Yes TAKE 1 Unive rs tartrate 50 7-22 TABLET BY ity of mg tablet 00:00: MOUTH TWICE A Medical DAY Branch furosemide 2018-0 [...] 00:00: TWICE A Medical DAY Branch metoprolol 0 Yes TAKE 1 Unive rs tartrate 50 7-22 TABLET BY ity of mg tablet 00:00: TWICE A Medical DAY Branch furosemide 2019- Yes TAKE 1 Unive rs 40 mg [...] 00 TWICE A Medical DAY Branch metoprolol 2019-0 Yes TAKE 1 Unive rs tartrate 50 7-22 TABLET BY ity of mg tablet 00:00: MOUTH [place] 00 TWICE A Medical DAY Branch furosemide 2019-0 Yes TAKE 1 Unive rs 40 mg 7-22 TABLET BY ity of tablet 00:00: MOUTH [place] 00 TWICE A Medical DAY Branch metoprolol 2019-0 Yes TAKE 1 Unive rs tartrate 50 7-22 TABLET BY ity of mg tablet 00:00: MOUTH [place] 00 TWICE A Medical DAY Branch GLIMEPIRIDE 2018- Yes [id number] TAKE 1 Univers 2 mg tablet 1-19 TABLET BY ity of 00:00: MOUTH [place] 00 EVERY DAY Medical WITH Branch BREAKFAST GLIMEPIRIDE 2017-07 Yes [id number] TAKE 1 Univers 2 mg tablet 1-19 TABLET BY ity of 00:00: MOUTH [place] 00 EVERY DAY Medical WITH Branch BREAKFAST GLIMEPIRIDE 2017-07 Yes [id number] TAKE 1 Univers 2 mg tablet 1-19 TABLET BY ity of 00:00: MOUTH [place] 00 EVERY DAY Medical WITH Branch BREAKFAST GLIMEPIRIDE 2017-07 Yes [id number] TAKE 1 Univers 2 mg tablet 1-19 TABLET BY ity of 00:00: MOUTH [place] 00 EVERY DAY Medical WITH Branch BREAKFAST GLIMEPIRIDE 2017-07 Yes [id number] TAKE 1 Univers 2 mg tablet 1-19 TABLET BY ity of 00:00: MOUTH [place] 00 EVERY DAY Medical WITH Branch BREAKFAST GLIMEPIRIDE 2017-07 Yes [id number] TAKE 1 Univers 2 mg tablet 1-19 TABLET BY ity of 00:00: MOUTH [place] 00 EVERY DAY Medical WITH Branch BREAKFAST GLIMEPIRIDE 2017-07 Yes [id number] TAKE 1 Univers 2 mg tablet 1-19 TABLET BY ity of 00:00: MOUTH [place] 00 EVERY DAY Medical WITH Branch BREAKFAST GLIMEPIRIDE 2017-07 Yes [id number] TAKE 1 Univers 2 mg tablet 1-19 TABLET BY ity of 00:00: MOUTH [place] 00 EVERY DAY Medical WITH Branch BREAKFAST GLIMEPIRIDE 2017-07 Yes [id number] TAKE 1 Univers 2 mg tablet 1-19 TABLET BY ity of 00:00: MOUTH [place] 00 EVERY DAY Medical WITH Branch BREAKFAST GLIMEPIRIDE 2017-07 Yes [id number] TAKE 1 Univers 2 mg tablet 1-19 TABLET BY ity of 00:00: MOUTH [place] 00 EVERY DAY Medical WITH Branch BREAKFAST GLIMEPIRIDE 2017-07 Yes [id number] TAKE 1 Univers 2 mg tablet 1-19 TABLET BY ity of 00:00: MOUTH [place] 00 EVERY DAY Medical WITH Branch BREAKFAST GLIMEPIRIDE 2017-07 Yes [id number] TAKE 1 Univers 2 mg tablet 1-19 TABLET BY ity of 00:00: MOUTH [place] 00 EVERY DAY Medical WITH Branch BREAKFAST GLIMEPIRIDE 2017-07 2020- No [id number] TAKE 1 Univers 2 mg tablet 07-26- TABLET BY it y of 00:00: 00:00 MOUTH [place] 00 :00 EVERY DAY Medical WITH Branch BREAKFAST GLIMEPIRIDE 2017- 2020- No [id number] TAKE 1 Univers 2 mg tablet -23 01- TABLET BY it y of 00:00: 00:00 MOUTH [place] 00 :00 EVERY DAY Medical WITH Branch BREAKFAST GLIMEPIRIDE 2017-07 2020- No [id number] TAKE 1 Univers 2 mg tablet 07-26- TABLET BY it y of 00:00: 00:00 MOUTH [place] 00 :00 EVERY DAY Medical WITH Branch [facility]-07 Yes [id number] TAKE 1 Univers mg tablet 1-12 TABLET BY ity o f 00:00: MOUTH [place] 00 EVERY DAY [facility] 2017- Yes [id number] TAKE 1 Univers mg tablet 1-12 TABLET BY ity o f 00:00: MOUTH [place] 00 EVERY DAY [facility]- Yes [id number] TAKE 1 Univers mg tablet 1-12 TABLET BY ity o f 00:00: MOUTH [place] 00 EVERY DAY [facility] 2017- Yes [id number] TAKE 1 Univers mg tablet 1-12 TABLET BY ity o f 00:00: MOUTH [place] 00 EVERY DAY [facility] 2017- Yes [id number] TAKE 1 Univers mg tablet 1-12 TABLET BY ity o f 00:00: MOUTH [place] 00 EVERY DAY Medical Branch [facility]ADNT[facility] 5 2017- Yes [id number] TAKE 1 Univers mg tablet 1-12 TABLET BY ity o f 00:00: MOUTH [place] 00 EVERY DAY [facility] 2017- Yes [id number] TAKE 1 Univers mg tablet 1-12 TABLET BY ity o f 00:00: MOUTH [place] 00 EVERY DAY [facility] 5 2017- Yes [id number] TAKE 1 Univers mg tablet 1-12 TABLET BY ity o f 00:00: MOUTH [place] 00 EVERY DAY [facility] 5 2017- Yes [id number] TAKE 1 Univers mg tablet 1-12 TABLET BY ity o f 00:00: MOUTH [place] EVERY DAY Medical [facility] 5 2017- Yes [id number] TAKE 1 Univers mg tablet 1-12 TABLET BY ity o f 00:00: MOUTH [place] 00 EVERY DAY [facility] 5 2017- Yes [id number] TAKE 1 Univers mg tablet 1-12 TABLET BY ity o f 00:00: MOUTH [place] EVERY DAY [facility] 5 2017- Yes [id number] TAKE 1 Univers mg tablet 1-12 TABLET BY ity o f 00:00: MOUTH [place] EVERY DAY [facility] 5 2017- Yes [id number] TAKE 1 Univers mg tablet 1-12 TABLET BY ity o f 00:00: MOUTH [place] 00 EVERY DAY [facility] 5 2017- Yes [id number] TAKE 1 Univers mg tablet 1-12 TABLET BY ity o f 00:00: MOUTH [place] 00 EVERY DAY [facility] 5 2017- Yes [id number] TAKE 1 Univers mg tablet 1-12 TABLET BY ity o f 00:00: MOUTH [place] 00 EVERY DAY [facility] 5 2017- Yes [id number] TAKE 1 Univers mg tablet 1-12 TABLET BY ity o f 00:00: MOUTH [place] EVERY DAY [facility] 5 2017- Yes [id number] TAKE 1 Univers mg tablet 1-12 TABLET BY ity o f 00:00: MOUTH [place] 00 EVERY DAY [facility] 5 2017- Yes [id number] TAKE 1 Univers mg tablet 1-12 TABLET BY ity o f 00:00: MOUTH [place] 00 EVERY DAY [facility] 5 2017- Yes [id number] TAKE 1 Univers mg tablet 1-12 TABLET BY ity o f 00:00: MOUTH [place] 00 EVERY DAY [facility] 5 2017- Yes [id number] TAKE 1 Univers mg tablet 1-12 TABLET BY ity o f 00:00: MOUTH [place] 00 EVERY DAY Medical Branch amLODIPine 0 Yes 10mg Take 10 mg M ethodi (NORVASC) 7-[address] 10 mg 00:00: Hospita tablet 00 l amLODIPine 0 Yes 10mg Take 10 mg M ethodi (NORVASC) 7-[address] 10 mg 00:00: Hospita tablet 00 l amLODIPine 0 Yes [id number] 10mg Take 1 U nivers 10 mg 7-02 tablet by ity of tablet 00:00: mouth [place] 00 daily. Medical Branch amLODIPine Yes [id number] 10mg Take 1 U nivers 10 mg 7-02 tablet by ity of tablet 00:00: mouth [place] 00 daily. Medical Branch amLODIPine Yes [id number] 10mg Take 1 U nivers 10 mg 7-02 tablet by ity of tablet 00:00: mouth [place] 00 daily. Medical Branch amLODIPine Yes [id number] 10mg Take 1 U nivers 10 mg 7-02 tablet by ity of tablet 00:00: mouth [place] 00 daily. Medical Branch amLODIPine Yes [id number] 10mg Take 1 U nivers 10 mg 7-02 tablet by ity of tablet 00:00: mouth [place] 00 daily. Medical Branch amLODIPine 0 Yes [id number] 10mg Take 1 U nivers 10 mg 7-02 tablet by ity of tablet 00:00: mouth [place] 00 daily. Medical Branch amLODIPine Yes [id number] 10mg Take 1 U nivers 10 mg 7-02 tablet by ity of tablet 00:00: mouth [place] 00 daily. Medical Branch amLODIPine 0 Yes [id number] 10mg Take 1 U nivers 10 mg 7-02 tablet by ity of tablet 00:00: mouth [place] 00 daily. Medical Branch amLODIPine 0 Yes [id number] 10mg Take 1 U nivers 10 mg 7-02 tablet by ity of tablet 00:00: mouth [place] 00 daily. Medical Branch amLODIPine 0 Yes [id number] 10mg Take 1 U nivers 10 mg 7-02 tablet by ity of tablet 00:00: mouth [place] 00 daily. Medical Branch amLODIPine Yes [id number] 10mg Take 1 U nivers 10 mg 7-02 tablet by ity of tablet 00:00: mouth [place] 00 daily. Medical Branch amLODIPine Yes [id number] 10mg Take 1 U nivers 10 mg 7-02 tablet by ity of tablet 00:00: mouth [place] 00 daily. [facility] Branch amLODIPine Yes [id number] 10mg Take 1 U nivers 10 mg 7-02 tablet by ity of tablet 00:00: mouth [place] 00 daily. [facility] Branch amLODIPine Yes [id number] 10mg Take 1 U nivers 10 mg 7-02 tablet by ity of tablet 00:00: mouth [place] 00 daily. [facility] Branch amLODIPine Yes [id number] 10mg Take 1 U nivers 10 mg 7-02 tablet by ity of tablet 00:00: mouth [place] 00 daily. [facility] Branch amLODIPine Yes [id number] 10mg Take 1 U nivers 10 mg 7-02 tablet by ity of tablet 00:00: mouth [place] 00 daily. [facility] Branch amLODIPine Yes [id number] 10mg Take 1 U nivers 10 mg 7-02 tablet by ity of tablet 00:00: mouth [place] 00 daily. [facility] Branch amLODIPine Yes [id number] 10mg Take 1 U nivers 10 mg 7-02 tablet by ity of tablet 00:00: mouth [place] 00 daily. [facility] Branch amLODIPine Yes [id number] 10mg Take 1 U nivers 10 mg 7-02 tablet by ity of tablet 00:00: mouth [place] 00 daily. [facility] Branch amLODIPine Yes [id number] 10mg Take 1 U nivers 10 mg 7-02 tablet by ity of tablet 00:00: mouth [place] 00 daily. Medical Branch Victoza Victoza Yes [place] inject 0.6 C ommon [place] mg/day x 1 Spirit week then - [facility] max [facility] Medical mg/day Center Calcium Calcium Yes [place] TAKE BY Comm on Acetate Acetate [place] MOUTH 1 Spiri t (Phos (Phos CAPSULE 3 - [facility] Binder) Binder) TIMES A St DAY WITH [facility] FOOD AND 1 Medical CAPSUE 2 Center TIMES WITH SNACKS Claritin Claritin Yes [place] 1 tablet C ommon [facility] Doxazosin Doxazosin Yes [place] take 1 C ommon Mesylate Mesylate [place] tablet by S pirit mouth - [facility] twice a St day [facility] Furosemide Furosemide Yes [place] take 1 Common [place] tablet by Spirit mouth - [facility]I twice a [facility] Toujeo Tougeovanio Yes [place] INJECT SUB Com mon SoloStar SoloStar [place] 38 UNITS Sp karlee DAILY - CH[facility] Glimepiride Glimepiride Yes [place] take 1 Common [place] tablet by Spirit mouth - [facility] every day [facility] Atorvastati Atorvastati Yes [place] TAKE 1 Common n Calcium n Calcium [place] TABLET BY Spirit MOUTH - [facility] EVERY DAY [facility] Vitamin D-3 Vitamin D-3 Yes [place] as Common [facility] directed Spirit - [facility] Amlodipine Amlodipine Yes [place] take 1 Common Besylate Besylate [place] tablet by S pirit mouth - CHI every day [facility] Tradjenta Tradjenta Yes [place] TAKE 1 C ommon [place] TABLET BY Spirit MOUTH - [facility]I EVERY DAY St ONCE A DAY [address] Metoprolol Metoprolol Yes [place] take 1 Common Tartrate Tartrate [place] tablet by S pirit mouth - CHI twice a [facility] Atorvastati Atorvastati Yes [place] take 1 Common n Calcium n Calcium [place] tablet by Spirit mouth - [facility]I every day [facility] Furosemide Furosemide No BID Furosemide 40 MG 40 MG 40 MG Metoprolol Metoprolol No BID Metoprolol Tartrate 50 Tartrate 50 Tartrate MG MG 50 MG Vitamin D-3 Vitamin D-3 No Vitamin 5000 UNIT 5000 UNIT D-3 5000 UNIT Glimepiride Glimepiride No QD Glimepirid 4 MG 4 MG e 4 MG Atorvastati Atorvastati No QD Atorvastat n Calcium n Calcium in Calcium 20 MG 20 MG 20 MG Victoza 18 Victoza 18 No QD Victoza 18 MG/3ML MG/3ML MG/3ML Roopa Blas No QD Roopa EnglandAshli SolAshli SoloStar 300 UNIT/ML 300 UNIT/ML 300 UNIT/ML Victoza 18 Victoza 18 No QD Victoza 18 MG/3ML MG/3ML MG/3ML Calcium Calcium No Calcium Acetate Acetate Acetate (Phos (Phos (Phos Binder) 667 Binder) 667 Binder) MG MG 667 MG Doxazosin Doxazosin No BID Doxazosin Mesylate 2 Mesylate 2 Mesylate 2 MG MG MG Tradjenta 5 Tradjenta 5 No QD Tradjenta MG MG 5 MG Tradjenta 5 Tradjenta 5 No Tradjenta MG MG 5 MG Amlodipine Amlodipine No QD Amlodipine Besylate 10 Besylate 10 Besylate MG MG 10 MG Amlodipine Amlodipine No QD Amlodipine Besylate 10 Besylate 10 Besylate MG MG 10 MG Atorvastati Atorvastati No Atorvastat n Calcium n Calcium in Calcium 10 MG 10 MG 10 MG Claritin 10 Claritin 10 No 1{table QD Claritin MG MG t} 10 MG NovoFine NovoFine No NovoFine Plus 32G X Plus 32G X Plus 32G X 4 MM 4 MM 4 MM Immunizations Ordered Immunization Filled Immunization Date Status Commen ts Source Name Name Afluria single dose Afluria single dose 2020-04-27 Completed [facility] 15:11:00 [facility] Hepatitis A (adult) Hepatitis A (adult) 2018-10-07 Completed [facility] 11:11:00 [facility] Tdap - Tdap - 2013-04-14 Completed [facility] 11:10:00 [facility] Vital Signs Vital Name Observation Time Observation Value Comments Source Systolic blood 2022-02-12 18:19:00 176 mm[Hg] Univer sity of pressure [facility] [place] [facility] Diastolic blood 2022-02-12 18:19:00 95 mm[facility]Hg[facility] 2022-02-12 18:19:00 72 /min [facility] Respiratory rate 2022-02-12 18:19:00 15 /min [facility] Oxygen saturation in 2022-02-12 18:19:00 100 /min [facility] Arterial blood by [facility] Pulse oximetry Branch Body temperature 2022-02-12 16:12:01 37.11 [facility]par[place] [facility] Body weight 2022-02-12 15:35:00 109 kg [facility] BMI 2022-02-12 15:35:00 36.54 kg/m2 [facility] height 2020-06-16 15:20:00 71 [in_i] Common [facility] weight 2020-06-16 15:20:00 267.5 [lb_av] Common [facility] temperature 2020-06-16 15:20:00 98.8 [degF] Common [facility] bmi 2020-06-16 15:20:00 37.3 kg/m2 Common [facility] oximetry 2020-06-16 15:20:00 97 % Common [facility] respiratory rate 2020-06-16 15:20:00 17 /min Comm on [facility] blood pressure 2020-06-16 15:20:00 138 mm[Hg] Common [facility] systolic [facility] blood pressure 2020-06-16 15:20:00 74 mm[Hg] [facility] diastolic [facility] Systolic blood 2020-02-09 20:54:00 169 mm[Hg] Univer sity of [facility] Diastolic blood 2020-02-09 20:54:00 101 mm[Hg] Unive rsity of [facility] Heart rate 2020-02-09 20:54:00 88 /min [facility] Body temperature 2020-02-09 20:54:00 36.83 [facility] 2020-02-09 20:54:00 20 /min [facility] height 2020-02-09 20:54:00 172.7 cm [facility] Body weight 2020-02-09 20:54:00 112.946 kg [facility] BMI 2020-02-09 20:54:00 37.86 kg/m2 [facility] Oxygen saturation in 2020-02-09 20:54:00 98 /min University Arterial blood by [facility] Pulse oximetry Branch Systolic blood 2020-02-09 20:54:00 169 mm[Hg] Univer sity of [facility] Diastolic blood 2020-02-09 20:54:00 101 mm[Hg] Unive rsity of [facility] Heart rate 2020-02-09 20:54:00 88 /min Universi [place] [facility] Body temperature 2020-02-09 20:54:00 36.83 Aparna Univ ersity [facility] [place] [facility] Respiratory rate 2020-02-09 20:54:00 20 /min Univ ers[facility] [place] [facility] Body height 2020-02-09 20:54:00 172.7 cm [facility]i [facility] [place] [facility] Body weight 2020-02-09 20:54:00 112.946 kg [facility]i [facility] [place] [facility] BMI 2020-02-09 20:54:00 37.86 kg/m2 [facility]i [facility] [place] [facility] Oxygen saturation in 2020-02-09 20:54:00 98 /min University of Arterial blood by [facility] Pulse oximetry Branch Systolic blood 2020-01-29 19:55:00 123 mm[Hg] Univer sity of pressure [place] [facility] Diastolic blood 2020-01-29 19:55:00 81 mm[Hg] Unive rsity of pressure [place] [facility] Respiratory rate 2020-01-29 19:55:00 12 /min Univ ersity [facility] [place] [facility] Oxygen saturation in 2020-01-29 19:55:00 97 /min University of Arterial blood by [facility] Pulse oximetry Branch Heart rate 2020-01-29 19:40:00 [...] 37.44 Aparna Univ ers[facility] [place] [facility] Respiratory rate 2020-01-28 16:36:00 18 /min Univ ers[facility] [place] [facility] Body weight 2020-01-28 16:36:00 110.859 kg [facility]i [facility] [place] [facility] BMI 2020-01-28 16:36:00 34.10 kg/m2 [facility] [place] [facility] Systolic blood 2019-03-27 16:59:00 132 mm[Hg] Univer sity of pressure [place] [facility] Diastolic blood 2019-03-27 16:59:00 82 mm[Hg] Unive rsity of pressure [place] [facility] Oxygen saturation in 2019-03-27 16:59:00 100 /min [facility] Arterial blood by [facility] Pulse oximetry Branch Heart rate 2019-03-27 16:45:00 81 /min Universi ty [facility] Respiratory rate 2019-03-27 16:45:00 20 /min [facility] Body temperature 2019-03-27 16:37:00 36.94 Aparna [facility] Body height 2019-03-25 17:00:00 180.3 cm Universi ty [facility] Body weight 2019-03-25 17:00:00 117.935 kg Universi [place] [facility] BMI 2019-03-25 17:00:00 36.26 kg/m2 [facility] Systolic blood 2019-03-12 19:16:00 122 mm[facility]Hg] [facility] Diastolic blood 2019-03-12 19:16:00 79 mm[Hg] [facility] 2019-03-12 19:16:00 85 [facility] [place] [facility] Body temperature 2019-03-12 19:16:00 38.11 Aparna [facility] Respiratory rate 2019-03-12 19:16:00 18 /min [facility] Body height 2019-03-12 19:16:00 172.7 cm Universi [place] [facility] Body weight 2019-03-12 19:16:00 116.484 [facility] [place] [facility] BMI 2019-03-12 19:16:00 39.05 kg/m2 [facility] Procedures Procedure Date / Time Performing Clinician Source Performed XR FOOT 3+ VW LEFT 2022-02-12 17:18:00 Timothy Earl [facility] CBC WITH DIFF 2022-02-12 16:35:00 Timothy Earl [facility] COMP. METABOLIC PANEL 2022-02-12 16:21:00 Timothy Earl [facility] ([id number]) [facility] CONSENT/REFUSAL FOR 2022-02-12 15:18:13 Doctor Unassigned, No Un [facility] DIAGNOSIS AND TREATMENT Name Medical Branch BASIC METABOLIC PANEL 2020-01-29 16:55:00 [facility] Benz [facility] ([facility], K, CL, CO2, Medical Branch GLUCOSE, BUN, CREATININE, CA) POCT GLUCOSE(AGE 2020-01-29 15:48:00 Perfecto Bailey [facility] >30DAYS) Medical Branch DAY SURGERY - ADC 2020-01-29 05:01:00 Doctor Unassigned, No [facility] EXTERNAL PROVIDER 2020-01-28 05:01:00 Doctor Unassigned, No [facility] RECORDS Name [facility] POCT GLUCOSE(AGE 2019-03-27 16:31:00 Debra Trejo [facility] 0-30DAYS) Medical Branch EKG-12 LEAD 2019-03-27 14:15:39 Aleksandar [facility] BASIC METABOLIC PANEL 2019-03-27 13:52:00 Leona Telles [facility] (NA, K, CL, CO2, Medical Branch GLUCOSE, BUN, CREATININE, CA) CBC WITH DIFFERENTIAL 2019-03-27 13:51:00 Leona Telles [facility] ASSIGNMENT OF BENEFITS 2019-03-12 19:03:56 Doctor Unassigned, No [facility] Name [facility] REFERRAL- 2019-03-10 05:01:00 Doctor Unassigned, No [facility]RESPONSE Name [facility] REFERRAL- 2019-02-17 05:01:00 Doctor Unassigned, No [facility] REQUEST/RESPONSE Name [facility] Plan of Care Planned Activity Planned Date Details Comments Source Future Scheduled 2022-05-14 HEPATITIS B VACCINES [facility] Test 04:26:27 (1 of 3 - 3-dose series) [code = HEPATITIS B VACCINES (1 of 3 - 3-dose series)] Future Scheduled 2022-05-14 COVID-19 VACCINE (#1) [facility] Test 04:26:27 [code = COVID-19 VACCINE (#1)] Future Scheduled 2022-05-14 Pneumococcal Vaccine: [facility] Test 04:26:27 Pediatrics (0 to 5 Years) and At-Risk Patients (6 to 64 Years) (1 - PCV) [code = Pneumococcal Vaccine: Pediatrics (0 to 5 Years) and At-Risk Patients (6 to 64 Years) (1 - PCV)] Future Scheduled 2022-05-14 DIABETES: RETINAL EYE [facility] Test 04:26:27 EXAM [code = DIABETES: RETINAL EYE EXAM] Future Scheduled 2022-05-14 [facility] Test 04:26:27 [code = DIABETIC FOOT EXAM] Future Scheduled 2022-05-14 Hepatitis C screening [facility] Test 04:26:27 (procedure) [code = 386342727] Future Scheduled 2022-05-14 COLONOSCOPY SCREENING [facility] Test 04:26:27 [code = COLONOSCOPY SCREENING] Future Scheduled 2022-05-14 INFLUENZA VACCINE [facility] Test 04:26:27 [code = INFLUENZA VACCINE] Future Scheduled 2021-08-08 COVID-19 VACCINE (1) Met [facility] Test 22:23:08 [code = COVID-19 VACCINE (1)] Future Scheduled 2021-08-08 DIABETES: RETINAL EYE [facility] Test 22:23:08 EXAM [code = DIABETES: RETINAL EYE EXAM] Future Scheduled 2021-08-08 DIABETIC FOOT EXAM [facility] Test 22:23:08 [code = DIABETIC FOOT EXAM] Future Scheduled 2021-08-08 Hepatitis C screening [facility] Test 22:23:08 (procedure) [code = 087903333] Future Scheduled 2021-08-08 INFLUENZA VACCINE [facility] Test 22:23:08 [code = INFLUENZA VACCINE] Encounters Start End Encounter Admission Attending Care Care Encounter Source Date/Time Date/Time Type Type Clinicians Facility Department ID 2021-08-02 Outpatient Davis, [facility] [id number] Common 12:37:29 Todd [id number] [facility] 2021-08-02 Outpatient Davis, [facility] [id number] Common 11:44:45 Todd [id number] [facility] 2021-08-02 Outpatient Davis, [facility] [id number] Common 11:44:18 Todd [id number] [facility] 2021-08-02 Outpatient Davis, [facility] [id number] Common 11:25:55 Todd [id number] [facility] 2021-08-02 Outpatient Davis, [facility] [id number] Common 11:25:27 Todd [id number] [facility] 2021-08-02 Outpatient Davis, [facility] [id number] Common 11:17:13 Todd [id number] [facility] 2021-08-02 Outpatient Davis, [facility] [id number] Common 11:12:09 Todd [id number] [facility] 2021-08-02 Outpatient Davis, [facility] [id number] Common 11:07:27 Todd [id number] [facility] 2021-05-05 Outpatient Ila TREJO [facility] EFRA [id number] Univers 08:28:09 DEBRA juan [facility] 2022-02-12 2022-02-12 Emergency [facility] [id number] Univers 10:36:00 13:43:00 TIMOTHY juan [facility] 2022-02-12 2022-02-12 [facility] [id number] Univers 10:36:00 13:43:00 Timothy Mccurdy [place] [id number] i ty [facility] 4.2.7.[address] [facility] [id number] [place] 226464 [place] 2020-06-16 2020-06-16 [facility] [id number] [place] 00:00:00 00:00:00 VISIT Spirit [facility] PT - CHI LEVEL 4 [facility] 2020-05-24 2020-05-24 Outpatient SUSANNADELVIN [facility] [id number] 2024 [place] 00:00:00 00:00:00 125 Method i 2020-04-26 2020-04-26 Outpatient [facility]LV[facility] [id number] 7595 [place] 00:00:00 00:00:00 028 Method i 2020-04-14 2020-04-14 Outpatient [facility]DELVIN [facility] [id number] 6189 [place] 00:00:00 00:00:00 467 Method i 2020-04-14 2020-04-14 Outpatient [facility] [id number] 627 [place] 00:00:00 00:00:00 581 Method i 2020-03-17 2020-03-17 Outpatient [facility] [id number] Common 14:10:00 14:10:[address] [facility] 2020-03-15 2020-03-15 Outpatient DELVIN MULLINS [facility] [id number] 2902 [place] 00:00:00 00:00:00 751 Method i 2020-03-10 2020-03-10 Outpatient DELVIN MULLINS [facility] [id number] 5123 [place] 00:00:00 00:00:00 154 Method i 2020-03-10 2020-03-10 Outpatient DELVIN MULLINS [facility] [id number] 3926 [place] 00:00:00 00:00:00 038 Method i 2020-03-08 2020-03-08 Outpatient SACHA [facility] [id number] 939 [place] 00:00:00 00:00:00 GUILHERME 843 Method i 2020-03-08 2020-03-08 Outpatient SACHA [facility] [id number] 939 [place] 00:00:00 00:00:00 GUILHERME 916 Method i 2020-02-22 2020-02-22 Outpatient [facility] [id number] Common 16:58:00 16:58:[address] [facility] 2020-02-09 2020-02-09 Office [facility] [id number] 15:18:54 16:25:44 Visit Debra Addison [id number] [place] 4.2.7.2.686 Professio [phone] [address] 2020-02-09 2020-02-09 Office [facility]ly [facility] [id number] [facility] 15:18:54 16:25:44 Visit Debra Addison [id number] i ty of [place] 4.2.7.2.686 Jace mccurdy Professio [phone] Ct dical [address] 2020-02-09 2020-02-09 [facility] [id number] Univers 15:30:00 15:30:00 DEBRA juan [facility] 2020-01-29 2020-01-29 [facility] [id number] Univers 08:26:00 15:00:00 Encounter Debra Addison [id number] [place] [phone] [facility] 071 [place] 2020-01-29 2020-01-29 Laboratory Only, Adc Test [facility] 1.2.840. [id number] Univers 08:31:17 08:46:17 Only TrejoDebra 350.1.13.10 [place] [phone] [facility] [address] [place] 2020-01-29 2020-01-29 Orders Doctor DELONTE [id number] Univers 00:00:00 00:00:00 Only Unassigned, REINA 350.1.13.10 ity of [place] [facility] 4.2.7.2.686 Alfred as [phone] [address] 2020-01-28 2020-01-28 Office Neil [facility] [id number] Univers 11:28:36 11:56:45 Visit Debra Addison 350.1.13.10 i ty [place] [phone] Ct cathy [address] 2020-01-28 2020-01-28 Outpatient R NE[facility] [id number] Univers 11:15:00 11:15:00 DEBRA juan [facility] 2020-01-28 2020-01-28 Orders Doctor MARTEL [id number] Univers 00:00:00 00:00:00 Only Unassigned, REINA 350.1.13.10 ity of [place] [facility] 4.2.7.2.686 Alfred as [phone] [address] 2020-01-28 2020-01-28 Prep For Elfego [facility] 1.2.840.114 [id number] Univers 00:00:00 00:00:00 Surgery Leona Addison 350.1.13.10 [place] [phone] Ct dical [address] 2020-01-20 2020-01-20 Outpatient [facility] [id number] Common 15:47:00 15:47:[address] [facility] 2019-12-16 2019-12-16 Outpatient [facility] [id number] Common 15:00:00 15:00:[address] [facility] 2019-12-16 2019-12-16 Outpatient [facility] [id number] Common 14:45:00 14:45:[address] [facility] 2019-11-26 2019-11-26 Outpatient [facility] [id number] Common 13:57:00 13:57:[address] [facility] [address] [facility] 2019-09-15 2019-09-15 Outpatient [facility] [id number] Common 15:15:00 15:15:[address] [facility] 2019-09-14 2019-09-14 Outpatient [facility] [id number] Common 07:56:00 07:56:[address] [facility] 2019-09-10 2019-09-10 Outpatient [facility] [id number] Common 10:00:00 10:00:00 [facility] 2019-09-07 2019-09-07 Outpatient [facility] [id number] Common 09:39:00 09:39:[address] [facility] 2019-08-13 2019-08-13 Outpatient [facility] [id number] Common 14:49:00 14:49:[address] [facility] 2019-07-20 2019-07-20 Outpatient Ila TREJO [facility] [id number] Univers 09:15:00 09:16:44 DEBRA juan [facility] 2019-07-06 2019-07-06 [facility] [id number] Univers 10:18:00 13:59:00 DEBRA sophia [facility] 2019-06-25 2019-06-25 Outpatient Matt Gutierrezt [id number] Common 11:04:00 11:04:[address] [facility] 2019-06-18 2019-06-18 [facility] [id number] Univers 14:30:00 14:54:07 DEBRA juan [facility] 2019-06-15 2019-06-15 Outpatient [facility] [id number] Common 10:00:00 10:00:[address] [facility] 2019-06-10 2019-06-10 Outpatient [facility] [id number] Common 08:33:00 08:33:[address] [facility] 2019-06-08 2019-06-08 Outpatient Matt [facility] [id number] Common 13:51:00 13:51:[address] [facility] [address] [facility] 2019-04-09 2019-04-09 [facility] [id number] Univers 13:30:00 13:40:01 DEBRA juan [facility] 2019-04-08 2019-04-08 Outpatient [facility] [id number] Common 16:33:00 16:33:[address] [facility] 2019-03-27 2019-03-27 [place] [id number] Univers 08:38:00 13:00:00 Encounter Debra Addison 350.1.13.10 ity of [place] 4.2.7.2.686 Jace Galdamez [id number] [place] [id number] [place] 2019-03-17 2019-03-[id number] Univers 00:00:00 00:00:00 Leona Addison 350.1.13.10 [place] [phone] [facility] 377 [facility] 2019-03-17 2019-03-17 [facility] [id number] Univers 00:00:00 00:00:00 Leona Addison 350.1.13.10 [place] [phone] [facility] 377 [facility] 2019-03-13 2019-03-13 Outpatient [facility] [id number] Common 08:45:00 08:45:00 [facility] Quu [facility] 2019-03-12 2019-03-12 Office Neil [facility] [id number] Univers 14:05:56 15:28:12 Visit Debra Addison 350.1.13.10 i ty [place] [phone] [address] 2019-03-12 2019-03-12 Outpatient R NEIL [facility] [id number] Univers 14:00:00 14:43:39 DEBRA juan [facility] 2019-03-12 2019-03-12 Orders Doctor MARTEL 1.2.840.114 [id number] Univers 00:00:00 00:00:00 Only Unassigned, REINA 350.1.13.10 ity of [place] [facility] 4.2.7.2.686 Alfred as [phone] [address] 2019-03-12 2019-03-12 Prep For Elfego [facility] 1.2.840.114 [id number] Univers 00:00:00 00:00:00 Surgery Leona Addison 350.1.13.10 [place] [phone] [facility] 204 [facility] 2019-03-10 2019-03-10 Orders Doctor MARTEL 1.2.840.114 [id number] Univers 00:00:00 00:00:00 Only Unassigned, REINA 350.1.13.10 ity [facility] [place] [facility] 4.2.7.2.686 Alfred as [phone] [facility] [address] [place] 2019-02-17 2019-02-17 Orders Doctor DELONTE 1.2.840.114 [id number] Univers 00:00:00 00:00:00 Only Unassigned, REINA 350.1.13.10 ity [facility] [place] [facility] 4.2.7.2.686 Alfred as [phone] [place] [address] [place] Results Test Description Test Time Test Comments Results Result Comments Source COMP. METABOLIC PANEL (40156) 2022-02-12 16:53:37 Test Item Value Reference Range Interpretation Comme nts NA (test code = 4486570455) 136 mmol/L 135-145 K (test code = 8417283621) 4.6 mmol/L 3.5-5 CL (test code = 7589934789) 96 mmol/L 98-108 L CO2 TOTAL (test code = 0554357354) 24 mmol/L 23-31 AGAP (test code = 3899573897) 2-16 BUN (test code = 0156993795) 54 mg/dL 7-23 H GLUCOSE (test code = 2739232429) 241 mg/dL 70-110 H CREATININE (test code = 9.53 mg/dL 0.6-1.25 H 1214228321) TOTAL BILI (test code = 0.6 mg/dL 0.1-1.6 8541563893) CALCIUM (test code = 5338477481) 8.9 mg/dL 8.6-10.6 T PROTEIN (test code = 1072615453) 7.3 g/dL 6.3-8.2 ALBUMIN (test code = 7646649913) 3.7 g/dL 3.5-5 ALK PHOS (test code = 7994914147) 146 U/L 34-122 H ALTv (test code = 1742-6) 17 U/L 5-50 AST(SGOT) (test code = 6093674475) 17 U/L 13-40 eGFR (test code = 5074188026) mL/min/1.73m2 CRISTIANA (test code = CRISTIANA) Association of [...] tests). Lab Interpretation (test code = Abnormal 84146-5) [facility] WITH [id number] 16:42:15 Test Item Value Reference Range Interpretation Comments WBC (test code = See_Comment [Automated 5690-2) message] The sy stem which generated this result transmitted reference range : 4.20 - 10.70 10*3/?L. The reference range was not used to interpret this result as normal/abnormal . RBC (test code = See_Comment L [Automated 899-8) message] The sy stem which generated this result transmitted reference range : 4.26 - 5.52 10*6/?L. The reference range was not used to interpret this result as normal/abnormal . HGB (test code = 9.3 g/dL 12.2-16.4 L 718-7) HCT (test code = 28.2 % 38.4-49.3 L 4544-3) MCV (test code = 87.9 fL 81.7-95.6 787-2) MCH (test code = 29.0 pg 26.1-32.7 785-6) MCHC (test code = 33.0 g/dL 31.2-35 786-4) RDW-SD (test code = 47.8 fL 38.5-51.6 13155-6) RDW-CV (test code = 14.8 % 12.1-15.4 788-0) PLT (test code = See_Comment [Automated 777-3) message] The sy stem which generated this result transmitted reference range : 150 - 328 10*3/ ?L. The reference r jesse was not used to interpret this result as normal/abnormal . MPV (test code = 10.0 fL 9.8-13 41368-9) NRBC/100 WBC (test See_Comment [Automat ed code = 3996043550) message] The system which generated this result transmitted reference range : 0.0 - 10.0 /100 WBCs. The refer ence range was not u sed to interpret th is result as normal/abnormal . NRBC x10^3 (test code See_Comment [Auto mated = 0334150328) message] The s ystem which generated this result transmitted reference range : 10*3/?L. The reference range was not used to interpret this result as normal/abnormal . GRAN MAT (NEUT) % 77.8 % (test code = 770-8) IMM GRAN % (test code 0.50 % = 9429316022) LYMPH % (test code = 10.8 % 736-9) MONO % (test code = 7.7 % 5905-5) EOS % (test code = 2.9 % 713-8) BASO % (test code = 0.3 % 706-2) GRAN MAT x10^3(ANC) 7.37 10*3/uL 1.99-6.95 H (test code = 7102275280) IMM GRAN x10^3 (test 0.05 10*3/uL 0-0.06 code = 4366033730) LYMPH x10^3 (test code 1.02 10*3/uL 1.09-3.23 L = 731-0) MONO x10^3 (test code 0.73 10*3/uL 0.36-1.02 = 742-7) EOS x10^3 (test code = 0.27 10*3/uL 0.06-0.53 711-2) BASO x10^3 (test code 0.03 10*3/uL 0.01-0.09 = 704-7) Lab Interpretation Abnormal (test code = 03396-0) [facility] [Presence] in Respiratory specimen by BRAD with probe [id number] 23:16:36 Test Item Value Reference Range Interpretation Comments SARS-CoV-2 (COVID-19) RNA Not detected Not-Detected [Presence] in Respiratory specimen by BRAD with probe detection (test code = 95936-9) [facility] Metabolic Panel (NA, K, CL, CO2, Glucose, BUN, Creatinine, CA)2020-01-29 17:22:00 Test Item Value Reference Range Interpretation Comments NA (test code = 136 mmol/L 135-145 4338297207) K (test code = 3.6 mmol/L 3.5-5 3185918663) CL (test code = 97 mmol/L 98-108 L 4740166789) CO2 TOTAL (test code = 28 mmol/L 23-31 5472877545) AGAP (test code = 2-16 5631736103) BUN (test code = 49 mg/dL 7-23 H 5905812385) GLUCOSE (test code = 313 mg/dL 70-110 H 4495804750) CREATININE (test code = 9.39 mg/dL 0.6-1.25 H 2504066722) CALCIUM (test code = 9.1 mg/dL 8.6-10.6 2676952125) eGFR Calculation mL/min/1.73m2 (Non-) (test code = 9923091331) eGFR Calculation mL/min/1.73m2 () (test code = 4426143264) CRISTIANA (test code = CRISTIANA) Association of [...] tests). Lab Interpretation Abnormal (test code = 14926-7) [facility] [id number] 15:48:00 Test Item Value Reference Range Interpretation Comments POCT Glu (age>30days) (test code = 327 mg/dL 70-110 A 3342) Lab Interpretation (test code = Abnormal 30939-0) [facility] GLUCOSE(AGE 0-30DAYS)2019-03-27 16:31:00 Test Item Value Reference Range Interpretation Comments POCT Glu (age 0-30days) (test code 270 mg/dl 40-110 A = 3343) Lab Interpretation (test code = Abnormal 42924-0) [facility] WITH [id number] 14:20:00 Test Item Value Reference Range Interpretation Comments WBC (test code = See_Comment [Automated 4590-2) message] The sy stem which generated this result transmitted reference range : 4.20 - 10.70 10*3/?L. The reference range was not used to interpret this result as normal/abnormal . RBC (test code = See_Comment L [Automated 629-8) message] The sy stem which generated this [...] RDW-SD (test code = 42.0 fL 38.5-51.6 49270-5) RDW-CV (test code = 13.5 % 12.1-15.4 788-0) PLT (test code = See_Comment [Automated 777-3) message] The sy stem which generated this result transmitted reference range : 150 - 328 10*3/ ?L. The reference r jesse was not used to interpret this result as normal/abnormal . MPV (test code = 10.3 fL 9.8-13 79081-5) NRBC/100 WBC (test See_Comment [Automat ed code = 1949237072) message] The system which generated this result transmitted reference range : 0.0 - 10.0 /100 WBCs. The refer ence range was not u sed to interpret th is result as normal/abnormal . NRBC x10^3 (test code See_Comment [Auto mated = 2252176358) message] The s ystem which generated this result transmitted reference range : 10*3/?L. The reference range was not used to interpret this result as normal/abnormal . GRAN MAT (NEUT) % 71.8 % (test code = 770-8) IMM GRAN % (test code 0.90 % = 6828495846) LYMPH % (test code = 17.0 % 736-9) MONO % (test code = 6.2 % 5905-5) EOS % (test code = 3.7 % 713-8) BASO % (test code = 0.4 % 706-2) GRAN MAT x10^3(ANC) 6.71 10*3/uL 1.99-6.95 (test code = 9141568876) IMM GRAN x10^3 (test 0.08 10*3/uL 0-0.06 H code = 9290777863) LYMPH x10^3 (test code 1.59 10*3/uL 1.09-3.23 = 731-0) MONO x10^3 (test code 0.58 10*3/uL 0.36-1.02 = 742-7) EOS x10^3 (test code = 0.35 10*3/uL 0.06-0.53 711-2) BASO x10^3 (test code 0.04 10*3/uL 0.01-0.09 = 704-7) Lab Interpretation Abnormal (test code = 05195-2) [facility] METABOLIC PANEL (NA, K, CL, CO2, GLUCOSE, BUN, CREATININE, CA)2019-03-27 14:07:00 Test Item Value Reference Range Interpretation Comments NA (test code = 141 mmol/L 135-145 1306966791) K (test code = 4.5 mmol/L 3.5-5 2389244661) CL (test code = 102 mmol/L 98-108 8722433052) CO2 TOTAL (test code = 27 mmol/L 23-31 1611192714) AGAP (test code = 2-16 1952521138) BUN (test code = 44 mg/dL 7-23 H 8370854687) GLUCOSE (test code = 291 mg/dL 70-110 H 4228052597) CREATININE (test code = 7.35 mg/dL 0.6-1.25 H 9904636229) CALCIUM (test code = 9.5 mg/dL 8.6-10.6 9536761886) eGFR Calculation mL/min/1.73m2 (Non-) (test code = 1804835800) eGFR Calculation mL/min/1.73m2 () (test code = 3560225427) CRISTIANA (test code = CRSITIANA) Association of Glomerular Filtration Rate (GFR) and [...] tests). Lab Interpretation Abnormal (test code = 41553-5) [facility]
--- NOTE | 2022-06-02 11:53 | ER ---
Nurse's Notes [facility] Name: Nikita Bartlett Age: 46 yrs Sex: Male : 1975 Arrival Date: 06/02/2022 Time: 11:31 Bed IW1 Private MD: Diagnosis: Blister (nonthermal) of foot Presentation: 06/02 11:47 Chief complaint: Patient states: Pt reports he stepped on a coke bottle lid kb3 approximately 5 days ago and is having pain in his right heel. Coronavirus screen: Vaccine status: Patient reports receiving the 2nd dose of the covid vaccine. Client denies travel out of the [place] in the last 14 days. Ebola Screen: Patient negative for fever greater than or equal to 101.5 degrees Fahrenheit, and additional compatible Ebola Virus Disease symptoms Patient denies exposure to infectious person. Patient denies travel to an Ebola-affected area in the 21 days before illness onset. Initial Sepsis Screen: Does the patient meet any 2 criteria? No. Patient's initial sepsis screen is negative. Does the patient have a suspected source of infection? No. Patient's initial sepsis screen is negative. Risk Assessment: Do you want to hurt yourself or someone else? Patient reports no desire to harm self or others. Onset of symptoms was May 28, 2022. 11:47 Method Of Arrival: Wheelchair kb3 11:47 Acuity: OCTAVIO 4 kb3 Triage Assessment: 11:49 General: Appears in no apparent distress. Behavior is calm, cooperative. Pain: kb3 Complains of pain in heel of right foot Pain does not radiate. Pain currently is 8 out of 10 on a pain scale. Quality of pain is described as burning, aching, pressure. Respiratory: Reports. 12:08 Respiratory: Onset: The symptoms/episode began/occurred at an unknown time. the patient kb3 has mild shortness of breath. Historical: - Allergies: 11:49 No Known Allergies; kb3 - Home Meds: 11:49 amlodipine oral [Active]; Aspirin Oral [Active]; atorvastatin Oral [Active]; doxyzosen kb3 [Active]; erythropoeten [Active]; Glimepiride Oral [Active]; hydrochlorothiazide 25 mg Oral tab [Active]; Janumet Oral [Active]; Metoprolol Tartrate Oral [Active]; olmesartan Oral [Active]; Tradjenta 5 mg Oral tab [Active]; Victoza 2-Mg subcutaneous [Active]; vitamins [Active]; - PMHx: 11:49 "Leaking heart valve"; Anemia; Diabetes - NIDDM; Dialysis; Enlarged Heart; kb3 Hypertension; osteomyelitis; - PSHx: 11:49 None; kb3 - Immunization history:: Adult Immunizations up to date, Client reports receiving the 2nd dose of the Covid vaccine, Last tetanus immunization: up to date. - Social history:: Smoking status: Patient denies any tobacco usage or history of. Screenin:52 Abuse screen: Denies threats or abuse. Denies injuries from another. Nutritional kb3 screening: No deficits noted. Tuberculosis screening: No symptoms or risk factors identified. Fall Risk None identified. Assessment: 11:52 General: See triage note. Cardiovascular: No deficits noted. Respiratory: No deficits kb3 noted. 12:08 Cardiovascular: No deficits noted. Respiratory: Airway. Respiratory: Respiratory effort kb3 is even, unlabored, Breath sounds are clear. 12:08 Cardiovascular: Rhythm is regular. kb3 Vital Signs: 11:47 BP 187 / 91; Pulse 72; Resp 20; Temp 98.2; Pulse Ox 100% ; Weight 49.9 kg; Height 5 ft. kb3 11 in. (180.34 cm); Pain 7/10; 11:47 Body Mass Index 15.34 (49.90 kg, 180.34 cm) kb3 ED Course: 11:31 Patient arrived in ED. as 11:47 Nickolas Lucero DO is Attending Physician. ms3 11:49 Triage completed. kb3 11:49 Arm band placed on right wrist. kb3 11:52 Nusrat Reynaga, RN is Primary Nurse. kb3 11:52 Donny Keita DPM is Referral Physician. ms3 11:52 Patient has correct armband on for positive identification. kb3 11:52 No provider procedures requiring assistance completed. Patient did not have IV access kb3 during this emergency room visit. Administered Medications: No medications were administered Medication: 11:52 VIS not applicable for this client. kb3 Outcome: 11:52 Discharge ordered by . ms3 12:08 Discharged to home via wheelchair. kb3 12:08 Condition: stable 12:08 Discharge instructions given to patient, Instructed on discharge instructions, follow up and referral plans. Demonstrated understanding of instructions, follow-up care. 12:09 Patient left the ED. kb3 Signatures: Joelle Overton Marcus, DO DO ms3 Nusrat Reynaga, RN RN kb3
--- NOTE | 2022-06-02 11:53 | EDPHYS ---
Physician Documentation [facility] Name: Nikita Bartlett Age: 46 yrs Sex: Male : 1975 Arrival Date: 06/02/2022 Time: 11: Bed IW1 Private MD: ED Physician Nickolas Lucero HPI: 06/02 11:53 This 46 yrs old Male presents to ER via Wheelchair with complaints of Foot Pain. ms3 11:53 The patient presents with Blister. The complaints affect the right foot. Context: The ms3 problem was sustained at home, resulted from stepping on bottle cap, Mechanism of Injury: stepped on bottle cap the patient can fully bear weight, the patient is able to ambulate. Onset: The symptoms/episode began/occurred 4 day(s) ago. Modifying factors: The symptoms are alleviated by nothing, the symptoms are aggravated by weight bearing. Associated signs and symptoms: The patient has no apparent associated signs or symptoms. Severity of symptoms: At their worst the symptoms were moderate, in the emergency department the symptoms have improved. Historical: - Allergies: 11:49 No Known Allergies; kb3 - Home Meds: 11:49 amlodipine oral [Active]; Aspirin Oral [Active]; atorvastatin Oral [Active]; doxyzosen kb3 [Active]; erythropoeten [Active]; Glimepiride Oral [Active]; hydrochlorothiazide 25 mg Oral tab [Active]; Janumet Oral [Active]; Metoprolol Tartrate Oral [Active]; olmesartan Oral [Active]; Tradjenta 5 mg Oral tab [Active]; Victoza 2-Mg subcutaneous [Active]; vitamins [Active]; - PMHx: 11:49 "Leaking heart valve"; Anemia; Diabetes - NIDDM; Dialysis; Enlarged Heart; kb3 Hypertension; osteomyelitis; - PSHx: 11:49 None; kb3 - Immunization history:: Adult Immunizations up to date, Client reports receiving the 2nd dose of the Covid vaccine, Last tetanus immunization: up to date. - Social history:: Smoking status: Patient denies any tobacco usage or history of. ROS: 11:53 Constitutional: Negative for fever, and chills. Neck: Negative for injury, pain, and ms3 swelling, Cardiovascular: Negative for chest pain, and palpitations. Respiratory: Negative for shortness of breath, cough, wheezing, and pleuritic chest pain, Abdomen/GI: Negative for abdominal pain, nausea, vomiting, diarrhea, and constipation. 11:53 Skin: Positive for Blister on foot. 11:53 All other systems are negative. Exam: 11:53 Constitutional: This is a well developed, well nourished patient who is awake, alert, ms3 and in no acute distress. ENT: Nares patent. No nasal discharge, no septal abnormalities noted. Tympanic membranes are normal and external auditory canals are clear. Oropharynx with no redness, swelling, or masses, exudates, or evidence of obstruction, uvula midline. Mucous membranes moist. Neck: Trachea midline, no cervical lymphadenopathy. Supple, full range of motion without nuchal rigidity, or vertebral point tenderness. No Meningismus. Chest/axilla: Normal chest wall appearance and motion. Nontender with no deformity. Cardiovascular: Regular rate and rhythm with a normal S1 and S2. No gallops, murmurs, or rubs. Normal PMI, no JVD. No pulse deficits. Respiratory: Lungs have equal breath sounds bilaterally, clear to auscultation and percussion. No rales, rhonchi or wheezes noted. No increased work of breathing, no retractions or nasal flaring. Abdomen/GI: Soft, non-tender, with normal bowel sounds. No distension or tympany. No guarding or rebound. No evidence of tenderness throughout. 11:53 Skin: Blister on right heel, skin intact, no erythema, no drainage. Vital Signs: 11:47 BP 187 / 91; Pulse 72; Resp 20; Temp 98.2; Pulse Ox 100% ; Weight 49.9 kg; Height 5 ft. kb3 11 in. (180.34 cm); Pain 7/10; 11:47 Body Mass Index 15.34 (49.90 kg, 180.34 cm) kb3 MDM: 11:52 Patient medically screened. ms3 11:53 Data reviewed: vital signs, nurses notes, and as a result, I will discharge patient. ED ms3 course: Discussed physical exam findings with patient. Patient to follow-up with Dr. Keita in 2 to 3 days. Patient understands and agrees with plan. All questions were answered. Return precautions discussed include worsening symptoms, fevers, or any other concerns.. Administered Medications: No medications were administered Disposition Summary: 06/02/22 11:52 Discharge Ordered Location: Home ms3 Condition: Stable ms3 Diagnosis - Blister (nonthermal) of foot ms3 Followup: ms3 - With: Donny Keita DPM - When: 1 - 2 days - Reason: Recheck today's complaints Discharge Instructions: - Discharge Summary Sheet ms3 - Blisters, Adult ms3 Forms: - Medication Reconciliation Form ms3 - Thank You Letter ms3 - Antibiotic Education ms3 - Prescription Opioid Use ms3 Signatures: Nickolas Lucero, DO ms3 Nusrat Reynaga, RN RN kb3
[2022-06-02 12:13] VITALS: BP 187/91; TEMP 98.2; O2SAT 100
== END 2022-06-02 12:09 | disposition home or self-care (01) ==
LOC: ER 11:26
DX: S90.821A Blister (nonthermal), right foot, initial encounter (principal)
CPT/HCPCS: 99281

== ENCOUNTER 2022-06-20 21:51 | Inpatient (IN) | payer OTHER ==
--- OUTSIDE RECORDS SUMMARY | 2022-06-20 21:57 | XMS REPORT | Continuity of Care Document ---
:1975 Author Organization [facility] t Address [address] [place] [address] Care Team Providers Name Role Phone Todd Davis DO Matt Primary Care Physician [phone] Todd Davis Attending Clinician Unavailable DEBRA TREJO Attending Clinician Unavailable TIMOTHY EARL Attending Clinician Unavailable Timothy Prince S Attending Clinician DELVIN MULLINS Attending Clinician Unavailable MD DELVIN MULLINS Attending Clinician Unavailable GUILHERME GONCALVES Attending Clinician Unavailable Debra Trejo MD Attending Clinician Only, Adc Test Attending Clinician Unavailable Doctor Unassigned, [place] Attending Clinician Unavailable Gramm Leona BLANKENSHIP Attending Clinician DEBRA TREJO Admitting Clinician Unavailable TIMOTHY EARL Admitting Clinician Unavailable DELVIN MULLINS Admitting Clinician Unavailable MD DELVIN MULLINS Admitting Clinician Unavailable Debra Trejo MD Admitting Clinician Payers Payer Name Policy Type Policy Effective Date Expiration Date Sour ce Number MEDICARE PART A [id number] 2019 \\T\\ B 00:00:00 [place] [id number] 2020 BENEFITS 00:00:00 MEDICARE KATIE LEE [id number] 2019 [facility] 00:00: - [facility] [id number] 2017 SELECT 00:00:00 Problems Condition Condition Condition Status Onset Resolution Last Treating Co mments Source Name Details Category Date Date Treatment Clinician Date ESRD (end ESRD (end Disease Active Overview: Methodi stage stage 9- Formattin st renal renal 00:00: g of this Hospita disease) disease) 00 note l might be different from the original. Added automatic ally from request for surgery [id number] Anemia of Anemia of Disease Active Met hodi chronic chronic 03-08 disease disease 00:00: Hospita 00 l Type 2 Type 2 Disease Active Methodi diabetes diabetes 03-08 mellitus mellitus 00:00: Hospit a 00 l Infection Infection Disease Active Overview: Univers associated associated 01-27 Added it y of with with 00:00: automatic [place] peritoneal peritoneal 00 ally from Medical dialysis dialysis request [facility] catheter, catheter, for initial initial surgery encounter encounter [id number] Infection Infection Disease Active Overview: Univers associated associated 01-27 Formattin ity of with with 00:00: g of this [place] peritoneal peritoneal 00 note Me dical dialysis dialysis might be Bran catheter, catheter, different initial initial from the encounter encounter original. Added automatic ally from request for surgery [id number] Obesity Obesity Disease Active Methodi (BMI (BMI -20 st 30-39.9) 30-39.9) 00:00: Hospit a 00 l ESRD (end ESRD (end Disease Active Overview: Univers stage stage 9-06 Formattin ity of renal renal 00:00: g of this [place] disease) disease) 00 note Medica l on on might be Branch dialysis dialysis different from the original. Added automatic ally from request for surgery [id number] Tobacco Tobacco Disease Active Univers use use 07-16 ity of disorder disorder 00:00: [place] 00 Medical Branch Essential Essential Disease Active Met hodi hypertensi hypertensi 07-16 st on on 00:00: Hospita 00 l Hypertrigl Hypertrigl Disease Active M ethodi yceridemia yceridemia 07-16 00:00: Hospita 00 l [id number] Kidney Problem Active Common disease [facility] [id number] LVH (left Problem Active Comm on ventricula [facility] r - [facility] hypertroph St y) [facility] [id number] Mixed Problem Active Common hyperlipid Spirit emia - [facility] [id number] Type 2 Problem Active Common diabetes Spirit mellitus - [facility] without complicati [facility] on, Medical without Center long-term current use of insulin [id number] Vitamin D Problem Active Comm on deficiency [facility] [id number] Dependence Problem Active Co mmon on renal [facility] dialysis - [facility] [id number] Abnormal Problem Active Commo n gait [facility] [id number] HTN, goal Problem Active Comm on below Spirit 130/80 - [facility] [id number] [place] [address] osteoarthr Spirit itis of [facility] right knee [facility] [id number] Seasonal Problem Active Comm on allergies [facility] [id number] Morbid Problem Active Common (severe) Spirit obesity - [facility] due to [facility] Allergies, Adverse Reactions, Alerts Allergy Allergy Status Severity Reaction(s) Onset Inactive Treating Comm ents Source Name Type Date Date Clinician NO KNOWN Drug Active Univers ALLERGIE Class ity of S [facility] Family History Family Member Diagnosis Comments Start Date Stop Date Source Natural father Diabetes [facility] Natural father [facility] myel[facility] Natural mother Diabetes [facility] Natural mother Hypertension [facility] Social History Social Habit Start Date Stop Date Quantity Comments Source History of Tobacco [facility] - Use [facility] History [facility] University o f Alcohol Frequency [facility] edical [place] History [facility] o f Alcohol Std Drinks [facility] History [facility] University o f Alcohol Binge [facility] Exposure to 2022-02-02 2022-02-12 Unable to assess Univers ity of SARS-CoV-2 (event) 00:00:00 10:16:00 [facility] Alcohol intake 2020-03-17 2020-03-17 Ex-drinker [employer] 00:00:00 00:00:00 (finding) Hospital Cigarette 2020-03-10 2020-03-10 [employer] pack-years 00:00:00 00:00:00 Hospital Cigarettes smoked 2020-03-10 2020-03-[address] current (pack per 00:00:00 00:00:00 Hospita l day) - Reported Tobacco use and 2019-03-25 2019-03-25 User of smokeless Un iversity of exposure 00:00:00 00:00:00 tobacco [facility] Tobacco Comment 2016-07-16 2016-07-16 1-2 packs daily Univ ersity of 00:00:00 00:00:00 sometimes; other [facility] dical times could be 1 Branch week. ; chewing tobacco - 25 years; 1 can every other day. Alcohol Comment 2016-07-16 2016-07-16 occasional Universit y of 00:00:00 00:00:00 [facility] Sex [birth year] [employer] 00:00:00 00:00:00 Hospital Smoking Status Start Date Stop Date Source Former Smoker 2020-06-15 00:00:00 2020-06-15 00:00:00 [facility] - [facility] Ce nter Current every day 2018-01-06 00:00:00 [facility] Medications Ordered Filled Start Stop Current Ordering Indication Dosage Frequency Signature Comments Components Source Medication Medication Date Date Medication? Clinician (SIG) Name Name clindamycin 2021-0 2021- No 600mg 600 mg, IV Univers (CLEOCIN) 02-12 Piggyback, ity of injection 18:15: 18:12 ONCE, 1 [place] 600 mg 00 :00 dose, On Medical 02/12/22 Branch at 1315, REYNALDO
Re ason for Anti-Infec tive: Documented Infection< br>Documen kamila Infection Site: Skin / Soft Tissue
Duration of Therapy: 10 days
Re stricted use approved by: ED PROVIDER clindamycin 0 202- No [id number] 450mg Take 3 Univers 150 mg 02-12 capsules ity of capsule 00:00: 04:59 by mouth [place] 00 :00 in the Medical morning Branch [...] 55 daily. l mL) pen injector linaGLIPtin 2020- Yes 5mg QD Take 5 mg M ethodi (TRADJENTA) 0-[address] 5 mg tablet 10:39: daily. [facility] 55 l loratadine 2020- Yes 10mg QD Take 10 mg M ethodi (CLARITIN) 0-[address] 10 mg 10:39: daily. Hospita tablet 55 l cholecalcif 2019-07 Yes Take by Met hodi chadd, 0-[address] vitamin D3, 10:39: Hospit a (Vitamin 55 l D3) 125 mcg (5,000 unit) tablet insulin 2019-07 Yes Inject Methodi glargine,hu 0-20 under the [facility].rec.anlog 10:39: skin. Hospi ta (TOUJEO MAX 55 [...] 10:39: daily. [facility] 55 l loratadine 2019- Yes 10mg QD Take 10 mg M ethodi (CLARITIN) 0-[address] 10 mg 10:39: daily. Hospita tablet 55 l cholecalcif 2020- Yes Take by Met hodi chadd, 0-[address] vitamin D3, 10:39: Hospit a (Vitamin 55 l D3) 125 mcg (5,000 unit) tablet insulin 2019-07 Yes Inject Methodi glargine,hu 0-20 under the [facility].rec.anlog 10:39: skin. Hospi ta (TOUJEO MAX 55 l U-300 SOLOSTAR SUBQ) aspirin 81 2019-07 Yes Chew. Method i mg chewable 0-20 st tablet 10:39: Hospita 55 l liraglutide 2019- Yes 1.2mg QD Inject 1.2 Methodi (VICTOZA) 0-[address] 0.6 mg/0.1 10:39: the skin Hos [place] mL (18 mg/3 55 daily. l mL) pen injector linaGLIPtin 2020- Yes 5mg QD Take 5 mg M ethodi (TRADJENTA) 0-[address] 5 mg tablet 10:39: daily. [facility] 55 l loratadine 2019- Yes 10mg QD Take 10 mg M ethodi (CLARITIN) 0-[address] 10 mg 10:39: daily. Hospita tablet 55 l cholecalcif 2019- Yes Take by Met hodi chadd, 0-[address] vitamin D3, 10:39: Hospit a (Vitamin 55 l D3) 125 mcg (5,000 unit) tablet insulin 2019-07 Yes Inject Methodi glargine,hu 0-[address] m.rec.anlog 10:39: skin. Hospi ta (TOUJEO MAX 55 l U-300 SOLOSTAR SUBQ) BABY 2019-0 Yes Take by Univers ASPIRIN 7-24 mouth. ity of ORAL 20:26: [place] [address] Medical Branch Cholecalcif 2020-0 Yes Take by Uni vers chadd, 7-24 mouth. ity of Vitamin D3, 20:26: [place] (VITAMIN Medical D3) 5,000 Branch unit tablet loratadine 2020-0 Yes 10mg Take 10 mg U nivers (CLARITIN) 7-24 by mouth ity o f 10 mg 20:26: daily. [place] [address] Medical Branch liraglutide 2020-0 Yes inject Univ ers (VICTOZA 7-24 under the ity of 2-[place]) 20:26: skin. [place] [address] Medical Branch BABY 2020-0 Yes Take by Univers ASPIRIN 7-24 mouth. ity of ORAL 20:26: [place] [address] Medical Branch Cholecalcif 2020-0 Yes Take by Uni vers chadd, 7-24 mouth. ity of Vitamin D3, 20:26: [place] (VITAMIN 37 Medical D3) 5,000 Branch unit tablet loratadine 2020-0 Yes 10mg Take 10 mg U nivers (CLARITIN) 7-24 by mouth ity o f 10 mg 20:26: daily. [place] tablet Medical Branch liraglutide 2020-0 Yes inject Univ ers (VICTOZA 7-24 under the ity of 2-[place]) 20:26: skin. [address] BABY 2020-0 Yes Take by [facility] [facility] ASPIRIN 7-24 mouth. ity of ORAL 20:26: [address] Cholecalcif 2020-0 Yes Take by Uni vers chadd, 7-24 mouth. ity of Vitamin D3, 20:26: [place] (VITAMIN [address] [place] [address] D3) 5,000 Branch unit tablet loratadine 2020-0 Yes 10mg Take 10 mg U nivers (CLARITIN) 7-24 by mouth ity o f 10 mg 20:26: daily. [address] liraglutide 2020-0 Yes inject Univ ers (VICTOZA 7-24 under the ity of 2-[place]ANS[place]) 20:26: skin. [address] lactated 2020-0 Yes 1000mL at 75 Univer s ringers IV 7-24 mL/hr, ity of infusion 19:45: 1,000 [place], [place] 1,000 mL 00 IV Medical Infusion, Branch CONTINUOUS , Starting Sat01/29/20 at 1445, Until Discontinu ed, Routine, PACU FENTanyl PF 2020-0 Yes 25ug 25 mcg, Uni vers (SUBLIMAZE 7-24 Slow IV ity of (PF)) 19:32: Push, [place] injection 11 Q5MIN PRN, Medi stacey 25 mcg 4 doses, Branch Starting Sat01/29/20 at 1432, Until Discontinu ed, Routine, Pain (scale 4-6), PACU ondansetron 2020-0 Yes 4mg 4 mg, Slow Univers (ZOFRAN 7-24 IV Push, ity of (PF)) 19:32: PRN, 1 [place] injection 4 11 dose, Medical mg Starting Branch Sat01/29/20 at 1432, Until Discontinu ed, Routine, Nausea and Vomiting (N/V), PACU BABY 2020-0 Yes Take by [facility] [facility] ASPIRIN 7-24 mouth. ity of ORAL 19:29: [address] Cholecalcif 2020-0 Yes Take by Uni vers chadd, 7-24 mouth. ity of Vitamin D3, 19:29: [place] (VITAMIN Medical D3) 5,000 Branch unit tablet loratadine 2020-0 Yes 10mg Take 10 mg U nivers (CLARITIN) 7-24 by mouth ity o f 10 mg 19:29: daily. [place] tablet 27 Medical Branch liraglutide 2020-0 Yes inject [facility] ers (VICTOZA 7-24 under the ity of 2-FRANS[place]CO [place]) 19:29: skin. [place] [address] Medical Branch lactated 2020-0 2020- No 1000mL at 20 Unive rs ringers IV 7-24 07-24 mL/hr, ity of infusion 16:00: 16:03 1,000 mL, [place] 1,000 mL 00 :00 IV Medical Infusion, Branch ONCE, 1 dose, Sat01/29/20 at 1100, Routine, DSU Pre-op ceFAZolin 2020-0 Yes 1000mg 1,000 mg, U nivers (ANCEF) 7-24 IV ity of 1,000 mg in 15:30: Piggyback, [place] NaCl 0.9% 08 O.R. Medical (NS) 50 mL HOLDING Branch MINI-BAG ONCE, 1 dose, Starting Sat01/29/20 at 1030, Until Discontinu ed, 50 mL, DSU Pre-op
Reason for Anti-Infec tive: Surgical Prophylaxi s
Surgi stacey Prophylaxi s: Abdominal< br>Duratio n of therapy: within 24 hours of surgery BABY 2020-0 Yes Take by Univers ASPIRIN 7-24 mouth. ity of ORAL 15:26: [address] Cholecalcif 2020-0 Yes Take by Uni vers chadd, 7-24 mouth. ity of Vitamin D3, 15:26: [place] (VITAMIN 37 Medical D3) 5,000 Branch unit tablet loratadine 2020-0 Yes 10mg Take 10 mg U nivers (CLARITIN) 7-24 by mouth ity o f 10 mg 15:26: daily. [place] [address] Medical Branch liraglutide 2020-0 Yes inject Univ ers (VICTOZA 7-24 under the ity of 2-[place]ANS[place]) 15:26: skin. [place] [address] Medical [place] BABY 2020-0 Yes Take by Univers ASPIRIN 7-24 mouth. ity of ORAL 13:26: [address] Cholecalcif 2020-0 Yes Take by Uni vers chadd, 7-24 mouth. ity of Vitamin D3, 13:26: [place] (VITAMIN 51 Medical D3) 5,000 Branch unit tablet loratadine 2020-0 Yes 10mg Take 10 mg U nivers (CLARITIN) 7-24 by mouth ity o f 10 mg 13:26: daily. [place] tablet 51 Medical Branch liraglutide 2020-0 Yes inject Univ ers (VICTOZA 7-24 under the ity of 2-[place]) 13:26: skin. [place] [address] Medical Branch Cholecalcif 2020-0 Yes Take by Uni vers chadd, 7-23 mouth. ity of Vitamin D3, 18:22: [place] (VITAMIN 12 Medical D3) 5,000 Branch unit tablet loratadine 2020-0 Yes 10mg Take 10 mg U nivers (CLARITIN) 7-23 by mouth ity o f 10 mg 18:22: daily. [place] tablet 12 Medical Branch liraglutide 2020-0 Yes inject Univ ers (VICTOZA 7-23 under the ity of 2-[place]) 18:22: skin. [place] 12 Medical Branch Cholecalcif 2020-0 Yes Take by Uni vers chadd, 7- mouth. ity of Vitamin D3, 18:22: [place] (VITAMIN 12 Medical D3) 5,000 Branch unit tablet loratadine 2020-0 Yes 10mg Take 10 mg U nivers (CLARITIN) 7- by mouth ity o f 10 mg 18:22: daily. [place] tablet 12 Medical Branch liraglutide 2020-0 Yes inject Univ ers (VICTOZA 7-23 under the ity of 2-[place]) 18:22: skin. [place] [address] Medical Branch fluconazole 2020-0 Yes 200mg Take [...] 7-13 by mouth ity of 00:00: daily. [place] Medical Branch glimepiride 2020-0 Yes 4mg Take 4 mg U nivers 4 mg tablet 7-13 by mouth ity of 00:00: daily. [place] Medical Branch glimepiride 2020-0 Yes 4mg Take 4 mg U nivers 4 mg tablet 7-13 by mouth ity of 00:00: daily. [place] [facility] Branch glimepiride 2020-0 Yes 4mg Take 4 mg U nivers 4 mg tablet 7-13 by mouth ity of 00:00: daily. [place] [facility] Branch glimepiride 2020-0 Yes 4mg Take 4 mg U nivers 4 mg tablet 7-13 by mouth ity of 00:00: daily. [place] [facility] Branch glimepiride 2020-0 Yes 4mg Take 4 mg U nivers 4 mg tablet 7-13 by mouth ity of 00:00: daily. [place] Medical Branch glimepiride 2020-0 Yes 4mg Take 4 mg M ethodi (AMARYL) 4 7-[address] [facility] glime[facility] 2020-0 Yes 4mg Take [...] sulfamethox 2020-0 Yes 1{tbl} Take 1 Un dneise azole-trime 6-18 tablet by ity of thoprim 00:00: mouth 2 [place] 800-160 mg 00 (two) Medical per tablet times Branch daily. SANTYL 250 2020-0 Yes 250U Apply 250 Un denise unit/gram 5-29 Units to ity of ointment 00:00: affected [place] area(s) Medical daily. Branch Apply a nickel [...] capsule calcium 2020-0 Yes 667mg Take 667 Metho di acetate,joshua 1-[address] sphat bind, 00:00: mouth. [facility] (PHOSLO) 00 l 667 mg capsule calcium 2020-0 Yes 667mg Take 667 Metho di acetate,joshua 1-[address] sphat bind, 00:00: mouth. [facility] (PHOSLO) 00 l 667 mg capsule BABY 2018-07 Yes Take by Univers ASPIRIN 2-30 mouth. ity of ORAL 19:59: [address] Cholecalcif 2018-07 Yes Take by Uni vers chadd, 2-30 mouth. ity of Vitamin D3, 19:59: [place] (VITAMIN [address] [place] [address] D3) 5,000 Branch unit tablet loratadine 2018-07 Yes 10mg Take 10 mg U nivers (CLARITIN) 2-30 by mouth ity o f 10 mg 19:59: daily. [address] liraglutide 2018-07 Yes inject Univ ers (VICTOZA 2-30 under the ity of 2-[place]) 19:59: skin. [address] BABY 2018-07 Yes Take by Univers ASPIRIN 2-30 mouth. ity of ORAL 19:59: [address] Cholecalcif 2018-07 Yes Take by Uni vers chadd, 2-30 mouth. ity of Vitamin D3, 19:59: [place] (VITAMIN Medical D3) 5,000 Branch unit tablet loratadine 2018-07 Yes 10mg Take 10 mg U nivers (CLARITIN) 2-30 by mouth ity o f 10 mg 19:59: daily. [place] [address] Medical [place] liraglutide 2018-07 Yes inject Univ ers (VICTOZA 2-30 under the ity of 2-[place]) 19:59: skin. [place] [address] Medical Branch BABY 2018-07 Yes Take by Univers ASPIRIN 2-30 mouth. ity of ORAL 19:59: [place] [address] Medical [place] BABY 2018-07 Yes Take by Univers ASPIRIN 2-30 mouth. ity of ORAL 19:59: [address] traMADol 50 2018-07 Yes [id number] 50mg Take 1 Univers mg tablet 2-30 tablet by ity o f 00:00: mouth [place] 00 every 6 Medical (six) Branch hours as needed for Pain (scale 7-10). traMADol 50 2018-07 Yes [id number] 50mg Take 1 Univers mg tablet 2-30 tablet by ity o f 00:00: mouth [place] 00 every 6 Medical (six) Branch hours as needed for Pain (scale 7-10). traMADol 50 2018-07 Yes [id number] 50mg Take 1 Univers mg tablet 2-30 tablet by ity o f 00:00: mouth [place] 00 every 6 Medical (six) Branch hours as needed for Pain (scale 7-10). traMADol 50 2018-07 Yes [id number] 50mg Take 1 Univers mg tablet 2-30 tablet by ity o f 00:00: mouth [place] 00 every 6 Medical (six) Branch hours as needed for Pain (scale 7-10). traMADol 50 2018-07 Yes [id number] 50mg Take 1 Univers mg tablet 2-30 tablet by ity o f 00:00: mouth [place] 00 every 6 Medical (six) Branch hours as needed for Pain (scale 7-10). traMADol 50 2018-07 2020- No [id number] 50mg Take 1 Univers mg tablet 2-30 07-24 tablet by ity of 00:00: 00:00 mouth [place] 00 :00 every 6 Medical (six) Branch hours as needed for Pain (scale 7-10). Pen [place] Pen [place] 2018-07 Yes Todd 1 pen Common 16" 3/16" 0-02 [place] needle Spirit 00:00: with - [facility] 00 [facility] Pen [place] Pen [place] 2018-07 No QD Pen 16" 31G X 316" 31G X 0-02 [place] 5 MM 5 MM 00:00: 3" 31G 00 X 5 MM BABY Yes Take by [facility] [facility] ASPIRIN - mouth. ity of ORAL 18:03: [address] Cholecalcif Yes Take by Uni vers chadd, 9- mouth. ity of Vitamin D3, 18:03: [place] (VITAMIN 50 Medical D3) 5,000 [place] unit tablet loratadine Yes 10mg Take 10 mg U nivers (CLARITIN) 03-27 by mouth ity o f 10 mg 18:03: daily. [place] tablet [address] [place] [address] liraglutide Yes inject Univ ers (VICTOZA 03-27 under the ity of 2-[place]ANS[place]CO [place]) 18:03: skin. [address] morpHINE 0 Yes 4mg 4 mg, Slow Uni vers injection 4 03-27 IV Push, ity of mg 16:25: Q5MIN PRN, [place] 03 3 doses, Medical Starting Branch Sat03/27/19 at 1125, Until Discontinu ed, Routine, Pain (scale 7-10), PACU FENTanyl PF 2018-0 Yes 50ug 50 mcg, Uni vers (SUBLIMAZE - Slow IV ity of (PF)) 16:25: Push, [place] injection 03 Q5MIN PRN, Medi stacey 50 mcg 4 doses, Branch Starting Sat03/27/19 at 1125, Until Discontinu ed, Routine, Pain (scale 4-6), PACU ondansetron 2018- Yes 4mg 4 mg, Slow Univers (ZOFRAN 03-27 IV Push, ity of (PF)) 16:25: PRN, 1 [place] injection 4 03 dose, Medical mg Starting Branch Sat03/27/19 at 1125, Until Discontinu ed, Routine, Nausea and Vomiting (N/V), PACU bupivacaine 2018-0 Yes PRN, Univer s -epinephrin 03-27 Starting ity of e-pf 15:56: Fri [place] (SENSORCAIN 00 03/27/19 at Sc dical E 1056, Branch W/EPINEPHRI Until NE) 0.25 Discontinu %-1:200,000 ed, injection Routine, Intra-op lidocaine 2018-0 Yes PRN, Univers 1% (PF) 03-27 Starting ity of (XYLOCAINE) 15:34: Fri [place] injection 00 03/27/19 at Medi stacey 1034, Branch Until Discontinu ed, Routine, Intra-op insulin 2019-0 2019- No 5U 5 Units, Unive rs regular 03-27 09-20 IV Push, ity of human 15:00: 14:54 ONCE NOW, [place] (HUMULIN R) 00 :00 1 dose, Medic al injection 5 Fri Branch Units 03/27/19 at 1000, REYNALDO, DSU Pre-op NaCl 0.9% 2019-0 Yes 500mL at 20 Univer s (NS) IV 9-20 mL/hr, IV ity of infusion 13:45: Infusion, [place] 500 mL 00 CONTINUOUS Medical , Starting Branch 03/27/19 at 0845, Until Discontinu ed, Routine, DSU Pre-op acetaminoph 2019-0 Yes [id number] 1000mg Take 2 Univers en (TYLENOL 9-20 tablets by it y of EXTRA 00:00: mouth [place] STRENGTH) 00 every 8 Medical 500 mg (eight) Branch tablet hours as needed for Pain. traMADol 50 2019-0 Yes [id number] 50mg Take 1 Univers mg tablet 9-20 tablet by ity o f 00:00: mouth [place] 00 every 6 Medical (six) Branch hours as needed for Pain (scale 4-6). acetaminoph 2019-0 Yes [id number] 1000mg Take 2 Univers en (TYLENOL 9-20 tablets by it y of EXTRA 00:00: mouth [place] STRENGTH) 00 every 8 Medical 500 mg (eight) Branch tablet hours as needed for Pain. traMADol 50 2019-0 Yes [id number] 50mg Take 1 Univers mg tablet 9-20 tablet by ity o f 00:00: mouth [place] 00 every 6 Medical (six) Branch hours as needed for Pain (scale 4-6). acetaminoph 2019-0 Yes [id number] 1000mg Take 2 Univers en (TYLENOL 9-20 tablets by it y of EXTRA 00:00: mouth [place] STRENGTH) 00 every 8 Medical 500 mg (eight) Branch tablet hours as needed for Pain. traMADol 50 2019-0 Yes [id number] 50mg Take 1 Univers mg tablet 9-20 tablet by ity o f 00:00: mouth [place] 00 every 6 Medical (six) Branch hours as needed for Pain (scale 4-6). acetaminoph 2019-0 Yes [id number] 1000mg Take 2 Univers en (TYLENOL 9-20 tablets by it y of EXTRA 00:00: mouth [place] STRENGTH) 00 every 8 Medical 500 mg (eight) Branch tablet hours as needed for Pain. traMADol 50 2019-0 Yes [id number] 50mg Take 1 Univers mg tablet 9-20 tablet by ity o f 00:00: mouth [place] 00 every 6 Medical (six) Branch hours as needed for Pain (scale 4-6). acetaminoph 2019-0 Yes [id number] 1000mg Take 2 Univers en (TYLENOL 9-20 tablets by it y of EXTRA 00:00: mouth [place] STRENGTH) 00 every 8 Medical 500 mg (eight) Branch tablet hours as needed for Pain. traMADol 50 2018-0 Yes [id number] 50mg Take 1 Univers mg tablet 9-20 tablet by ity o f 00:00: mouth [place] 00 every 6 Medical (six) Branch hours as needed for Pain (scale 4-6). acetaminoph 2019-0 Yes [id number] 1000mg Take 2 Univers en (TYLENOL 9-20 tablets by it y of EXTRA 00:00: mouth [place] STRENGTH) 00 every 8 Medical 500 mg (eight) Branch tablet hours as needed for Pain. traMADol 50 2018-0 Yes [id number] 50mg Take 1 Univers mg tablet 9-20 tablet by ity o f 00:00: mouth [place] 00 every 6 Medical (six) Branch hours as needed for Pain (scale 4-6). acetaminoph 2019-0 Yes [id number] 1000mg Take 2 Univers en (TYLENOL 9-20 tablets by it y of EXTRA 00:00: mouth [place] STRENGTH) 00 every 8 Medical 500 mg (eight) Branch tablet hours as needed for Pain. traMADol 50 2019-0 Yes [id number] 50mg Take 1 Univers mg tablet 9-20 tablet by ity o f 00:00: mouth [place] 00 every 6 Medical (six) Branch hours as needed for Pain (scale 4-6). acetaminoph 2019-0 Yes [id number] 1000mg Take 2 Univers en (TYLENOL 9-20 tablets by it y of EXTRA 00:00: mouth [place] STRENGTH) 00 every 8 Medical 500 mg (eight) Branch tablet hours as needed for Pain. traMADol 50 2019-0 Yes [id number] 50mg Take 1 Univers mg tablet 9-20 tablet by ity o f 00:00: mouth [place] 00 every 6 Medical (six) Branch hours as needed for Pain (scale 4-6). acetaminoph 2019-0 Yes [id number] 1000mg Take 2 Univers en (TYLENOL 9-20 tablets by it y of EXTRA 00:00: mouth [place] STRENGTH) 00 every 8 Medical 500 mg (eight) Branch tablet hours as needed for Pain. traMADol 50 2019-0 Yes [id number] 50mg Take 1 Univers mg tablet 9-20 tablet by ity o f 00:00: mouth [place] 00 every 6 Medical (six) Branch hours as needed for Pain (scale 4-6). acetaminoph 2019-0 Yes [id number] 1000mg Take 2 Univers en (TYLENOL 9-20 tablets by it y of EXTRA 00:00: mouth [place] STRENGTH) 00 every 8 Medical 500 mg (eight) Branch tablet hours as needed for Pain. traMADol 50 2018-0 Yes [id number] 50mg Take 1 Univers mg tablet 9-20 tablet by ity o f 00:00: mouth [place] 00 every 6 Medical (six) Branch hours as needed for Pain (scale 4-6). acetaminoph 2019-0 Yes [id number] 1000mg Take 2 Univers en (TYLENOL 9-20 tablets by it y of EXTRA 00:00: mouth [place] STRENGTH) 00 every 8 Medical 500 mg (eight) Branch tablet hours as needed for Pain. traMADol 50 2018-0 Yes [id number] 50mg Take 1 Univers mg tablet 9-20 [...] Medical (NS) 50 mL Branch MINI-BAG BABY 2019-0 Yes Take by Univers ASPIRIN 9-05 mouth. ity of ORAL 19:19: [place] [address] Medical Branch Cholecalcif Yes Take by Uni vers chadd, 9-05 mouth. ity of Vitamin D3, 19:19: [place] (VITAMIN 49 Medical D3) 5,000 Branch unit tablet loratadine Yes 10mg Take 10 mg U nivers (CLARITIN) 9-05 by mouth ity o f 10 mg 19:19: daily. [place] tablet 49 Medical Branch BABY Yes Take by Univers ASPIRIN 9-05 mouth. ity of ORAL 19:19: [place] [address] Medical Branch Cholecalcif Yes Take by Uni vers chadd, 9-05 mouth. ity of Vitamin D3, 19:19: [place] (VITAMIN 49 Medical D3) 5,000 Branch unit tablet loratadine Yes 10mg Take 10 mg U nivers (CLARITIN) 9-05 by mouth ity o f 10 mg 19:19: daily. [place] tablet 49 Medical Branch BABY Yes Take by Univers ASPIRIN 9-05 mouth. ity of ORAL 19:19: [place] [address] Medical Branch Cholecalcif Yes Take by Uni vers chadd, 9-05 mouth. ity of Vitamin D3, 19:19: [place] (VITAMIN 49 Medical D3) 5,000 Branch unit tablet loratadine Yes 10mg Take 10 mg U nivers (CLARITIN) 9-05 by mouth ity o f 10 mg 19:19: daily. [place] tablet 49 Medical Branch BABY Yes Take by Univers ASPIRIN 9-05 mouth. ity of ORAL 19:19: [place] [address] Medical Branch Cholecalcif Yes Take by Uni vers chadd, 9-05 mouth. ity of Vitamin D3, 19:19: [place] (VITAMIN 49 Medical D3) 5,000 Branch unit tablet loratadine Yes 10mg Take 10 mg U nivers (CLARITIN) 9-05 by mouth ity o f 10 mg 19:19: daily. [place] tablet 49 Medical Branch BABY Yes Take by Univers ASPIRIN 9-05 mouth. ity of ORAL 19:19: [place] [address] Medical Branch Cholecalcif Yes Take by Uni vers chadd, 9-05 mouth. ity of Vitamin D3, 19:19: [place] (VITAMIN 49 Medical D3) 5,000 Branch unit tablet loratadine Yes 10mg Take 10 mg U nivers (CLARITIN) 905 by mouth ity o f 10 mg 19:19: daily. [facility] [place] [facility] 49 Medical Branch BABY Yes Take by Univers ASPIRIN 05 mouth. ity of ORAL 19:19: [place] 49 Medical Branch Cholecalcif Yes Take by Uni vers chadd, 05 mouth. ity of Vitamin D3, 19:19: [place] (VITAMIN [address] [place] [address] D3) 5,000 Branch unit tablet loratadine Yes 10mg Take 10 mg U nivers (CLARITIN) 905 by mouth ity o f 10 mg 19:19: daily. [facility] [place] [facility] 49 Medical Branch doxazosin 2 Yes TAKE 1 Univ ers mg tablet 8-26 TABLET BY ity o f 00:00: MOUTH [place] TWICE A Medical DAY Branch atorvastati Yes 10mg Take 10 mg Univers n 10 mg 8-26 by mouth ity of tablet 00:00: daily. [place] [facility] Branch doxazosin 2 Yes TAKE 1 Univ ers mg tablet 8-26 TABLET BY ity o f 00:00: MOUTH TWICE A Medical DAY Branch atorvastati Yes 10mg Take 10 mg Univers n 10 mg 8-26 by mouth ity of tablet 00:00: daily. [place] [facility] Branch doxazosin 2 Yes TAKE 1 Univ ers mg tablet 8-26 TABLET BY ity o f 00:00: MOUTH TWICE A Medical DAY Branch atorvastati Yes 10mg Take 10 mg Univers n 10 mg 8-26 by mouth ity of tablet 00:00: daily. [place] [facility] Branch doxazosin 2 Yes TAKE 1 Univ ers mg tablet 8-26 TABLET BY ity o f 00:00: MOUTH TWICE A Medical DAY Branch atorvastati Yes 10mg Take 10 mg Univers n 10 mg 8-26 by mouth ity of tablet 00:00: daily. Medical Branch doxazosin 2 Yes TAKE 1 Univ ers mg tablet 8-26 TABLET BY ity o f 00:00: MOUTH [place] TWICE A Medical DAY Branch atorvastati Yes [...] by mouth ity of tablet 00:00: daily. [place] [facility] Branch doxazosin 2 Yes TAKE 1 Univ ers mg tablet 8-26 TABLET BY ity o f 00:00: MOUTH TWICE A Medical DAY Branch atorvastati Yes 10mg Take 10 mg Univers n 10 mg 8-26 by mouth ity of tablet 00:00: daily. [place] [facility] Branch doxazosin 2 Yes TAKE 1 Univ ers mg tablet 8-26 TABLET BY ity o f 00:00: MOUTH TWICE A Medical DAY Branch atorvastati Yes 10mg Take 10 mg Univers n 10 mg 8-26 by mouth ity of tablet 00:00: daily. [place] [facility] Branch doxazosin 2 Yes TAKE 1 Univ ers mg tablet 8-26 TABLET BY ity o f 00:00: MOUTH TWICE A Medical DAY Branch atorvastati Yes 10mg Take 10 mg Univers n 10 mg 8-26 by mouth ity of tablet 00:00: daily. [place] [facility] Branch doxazosin Yes TAKE 1 [facility] i (CARDURA) 2 8-[address] [facility] tablet 00:00: MOUTH [facility] 00 TWICE A l DAY atorvastati Yes 10mg Take 10 mg Method[facility] n (LIPITOR) 8-[address] 10 mg 00:00: [facility] tablet 00 doxazosin Yes TAKE 1 [facility] (CARDURA) 2 8-[address] MG tablet 00:00: MOUTH [facility] 00 TWICE A l DAY atorvastati Yes 10mg Take 10 mg [facility] n (LIPITOR) 8-[address] 10 mg 00:00: [facility] tablet 00 l doxazosin 2019-0 Yes TAKE 1 [facility] i (CARDURA) 2 8-[address] MG tablet 00:00: MOUTH [facility] 00 TWICE A l DAY atorvastati 2019-0 Yes 10mg Take 10 mg Methodi n (LIPITOR) 8-[address] 10 mg 00:00: [facility] tablet 00 l calcium 2019-0 Yes TAKE BY Univers acetate [...] WITH SNACKS calcium 2020- No TAKE BY Univer s acetate 667 01-29 MOUTH 1 ity of mg capsule 00:00: 00:00 CAPSULE 3 [place] :[place] TIMES A Medical DAY WITH Branch FOOD AND 1 CAPSUE 2 TIMES WITH SNACKS calcium 2020- No TAKE BY Univer s acetate 667 01-29 MOUTH 1 ity of mg capsule 00:00: 00:00 CAPSULE 3 [place] 00 :00 TIMES A Medical DAY WITH Branch FOOD AND 1 CAPSUE 2 TIMES WITH SNACKS calcium 2020- No TAKE BY Univer s acetate 667 01-29 MOUTH 1 ity of mg capsule [...] Hospita 00 TWICE A l DAY metoprolol 2019-0 Yes TAKE 1 [facility] di tartrate 7-[address] (LOPRESSOR) 00:00: MOUTH Hospi ta 50 mg 00 TWICE A l tablet DAY furosemide 2019-0 Yes TAKE 1 Metho di (LASIX) 40 7-[address] mg tablet 00:00: MOUTH [facility] 00 TWICE A l DAY metoprolol 2019-0 Yes TAKE 1 [facility] di tartrate 7-[address] (LOPRESSOR) 00:00: MOUTH [facility] 50 mg 00 TWICE A l tablet DAY GLIMEPIRIDE 2017-07 Yes [id number] TAKE 1 Univers 2 mg tablet 1-19 TABLET BY ity of 00:00: MOUTH [place] 00 EVERY DAY Medical WITH Branch BREAKFAST GLIMEPIRIDE 2017-07 Yes [id number] TAKE 1 Univers 2 mg tablet 1-19 TABLET BY ity of 00:00: MOUTH [place] 00 EVERY DAY Medical WITH Branch BREAKFAST GLIMEPIRIDE 2017-07 Yes [id number] TAKE 1 Univers 2 mg tablet 1-19 TABLET BY ity of 00:00: MOUTH [place] 00 EVERY DAY Medical WITH Branch BREAKFAST GLIMEPIRIDE 2017- Yes [id number] TAKE 1 Univers 2 mg tablet 1-19 TABLET BY ity of 00:00: MOUTH [place] 00 EVERY DAY Medical WITH Branch BREAKFAST GLIMEPIRIDE 2017-07 Yes [id number] TAKE 1 Univers 2 mg tablet 1-19 TABLET BY ity of 00:00: MOUTH [place] 00 EVERY DAY Medical WITH Branch BREAKFAST GLIMEPIRIDE 2017- Yes [id number] TAKE 1 Univers 2 mg tablet 1-19 TABLET BY ity of 00:00: MOUTH [place] 00 EVERY DAY Medical WITH Branch BREAKFAST GLIMEPIRIDE 2017- Yes [id number] TAKE 1 Univers 2 mg tablet 1-19 TABLET BY ity of 00:00: MOUTH [place] 00 EVERY DAY Medical WITH Branch BREAKFAST GLIMEPIRIDE 2017- Yes [id number] TAKE 1 Univers 2 mg tablet 1-19 TABLET BY ity of 00:00: MOUTH [place] 00 EVERY DAY Medical WITH Branch BREAKFAST GLIMEPIRIDE 2017- Yes [id number] TAKE 1 Univers 2 mg tablet 1-19 TABLET BY ity of 00:00: MOUTH [place] 00 EVERY DAY Medical WITH Branch BREAKFAST GLIMEPIRIDE 2017- Yes [id number] TAKE 1 Univers 2 mg tablet 1-19 TABLET BY ity of 00:00: MOUTH [place] 00 EVERY DAY Medical WITH Branch BREAKFAST GLIMEPIRIDE 2017-07 Yes [id number] TAKE 1 Univers 2 mg tablet 1-19 TABLET BY ity of 00:00: MOUTH [place] 00 EVERY DAY Medical WITH Branch BREAKFAST GLIMEPIRIDE 2017-07 Yes [id number] TAKE 1 Univers 2 mg tablet -19 TABLET BY ity of 00:00: MOUTH [place] 00 EVERY DAY Medical WITH Branch BREAKFAST GLIMEPIRIDE 2017- 2020- No [id number] TAKE 1 Univers 2 mg tablet 07-26- TABLET BY it y of 00:00: 00:00 MOUTH [place] 00 :00 EVERY DAY Medical WITH Branch BREAKFAST GLIMEPIRIDE 2017- 2020- No [id number] TAKE 1 Univers 2 mg tablet -23 01- TABLET BY it y of 00:00: 00:00 MOUTH [place] 00 :00 EVERY DAY Medical WITH Branch BREAKFAST GLIMEPIRIDE 2017- 2020- No [id number] TAKE 1 Univers 2 mg tablet 07-26- TABLET BY it y of 00:00: 00:00 MOUTH [place] 00 :00 EVERY DAY Medical WITH Branch BREAKFAST TRADJENTA 5 2017-07 Yes [id number] TAKE 1 Univers mg tablet 1-12 TABLET BY ity o f 00:00: MOUTH [place] 00 EVERY DAY [facility]- Yes [id number] TAKE 1 Univers mg tablet 1-12 TABLET BY ity o f 00:00: MOUTH [place] 00 EVERY DAY Medical Branch TRADNTA 5 2017- Yes [id number] TAKE 1 Univers mg tablet 1-12 TABLET BY ity o f 00:00: MOUTH [place] 00 EVERY DAY Medical Branch TRADNTA 5 2018- Yes [id number] TAKE 1 Univers mg tablet 1-12 TABLET BY ity o f 00:00: MOUTH [place] 00 EVERY DAY Medical Branch TRADJENTA 5 2018- Yes [id number] TAKE 1 Univers mg tablet 1-12 TABLET BY ity o f 00:00: MOUTH [place] 00 EVERY DAY Medical Branch TRADNTA 5 2017- Yes [id number] TAKE 1 Univers mg tablet 1-12 TABLET BY ity o f 00:00: MOUTH [place] 00 EVERY DAY Medical Branch TRADJENTA 5 2017- Yes [id number] TAKE 1 Univers mg tablet 1-12 TABLET BY ity o f 00:00: MOUTH [place] 00 EVERY DAY Medical Branch TRADJENTA 5 2017-07 Yes [id number] TAKE 1 Univers mg tablet 1-12 TABLET BY ity o f 00:00: MOUTH [place] 00 EVERY DAY Medical [facility] 5 2017-07 Yes [id number] TAKE 1 Univers mg tablet 1-12 TABLET BY ity o f 00:00: MOUTH [place] 00 EVERY DAY Medical [facility] 5 2017-07 Yes [id number] TAKE 1 Univers mg tablet 1-12 TABLET BY ity o f 00:00: MOUTH [place] 00 EVERY DAY Medical [facility] 5 2017-07 Yes [id number] TAKE 1 Univers mg tablet 1-12 TABLET BY ity o f 00:00: MOUTH [place] EVERY DAY Medical [facility] 5 2017-07 Yes [id number] TAKE 1 Univers mg tablet 1-12 TABLET BY ity o f 00:00: MOUTH [place] EVERY DAY Medical [facility] 5 2017-07 Yes [id number] TAKE 1 Univers mg tablet 1-12 TABLET BY ity o f 00:00: MOUTH [place] EVERY DAY Medical [facility] 5 2017-07 Yes [id number] TAKE 1 Univers mg tablet 1-12 TABLET BY ity o f 00:00: MOUTH [place] 00 EVERY DAY Medical [facility] 5 2017-07 Yes [id number] TAKE 1 Univers mg tablet 1-12 TABLET BY ity o f 00:00: MOUTH [place] EVERY DAY Medical [facility] 5 2017-07 Yes [id number] TAKE 1 Univers mg tablet 1-12 TABLET BY ity o f 00:00: MOUTH [place] EVERY DAY Medical [facility] 5 2017-07 Yes [id number] TAKE 1 Univers mg tablet 1-12 TABLET BY ity o f 00:00: MOUTH [place] 00 EVERY DAY Medical [facility] 5 2017-07 Yes [id number] TAKE 1 Univers mg tablet 1-12 TABLET BY ity o f 00:00: MOUTH [place] 00 EVERY DAY Medical [facility] 5 2017-07 Yes [id number] TAKE 1 Univers mg tablet 1-12 TABLET BY ity o f 00:00: MOUTH [place] EVERY DAY Medical [facility] 5 2017-07 Yes [id number] TAKE 1 Univers mg tablet 1-12 TABLET BY ity o f 00:00: MOUTH [place] EVERY DAY Medical Branch amLODIPine Yes [id number] 10mg Take 1 U nivers 10 mg 7-02 tablet by ity of tablet 00:00: mouth [place] 00 daily. Medical Branch amLODIPine Yes [id number] 10mg Take 1 U nivers 10 mg 7-02 tablet by ity of tablet 00:00: mouth [place] 00 daily. Medical Branch amLODIPine Yes [id number] 10mg Take 1 U nivers 10 mg 7-02 tablet by ity of tablet 00:00: mouth [place] 00 daily. Medical Branch amLODIPine Yes [id number] 10mg Take 1 U nivers 10 mg 7-02 tablet by ity of tablet 00:00: mouth [place] 00 daily. Medical Branch amLODIPine Yes [id number] 10mg Take 1 U nivers 10 mg 7-02 tablet by ity of tablet 00:00: mouth [place] 00 daily. Medical Branch amLODIPine Yes [id number] 10mg Take 1 U nivers 10 mg 7-02 tablet by ity of tablet 00:00: mouth [place] 00 daily. Medical Branch amLODIPine Yes [id number] 10mg Take 1 U nivers 10 mg 7-02 tablet by ity of tablet 00:00: mouth [place] 00 daily. Medical Branch amLODIPine Yes [id number] 10mg Take 1 U nivers 10 mg 7-02 tablet by ity of tablet 00:00: mouth [place] 00 daily. Medical Branch amLODIPine Yes [id number] 10mg Take 1 U nivers 10 mg 7-02 tablet by ity of tablet 00:00: mouth [place] 00 daily. Medical Branch amLODIPine Yes [id number] 10mg Take 1 U nivers 10 mg 7-02 tablet by ity of tablet 00:00: mouth [place] 00 daily. Medical Branch amLODIPine Yes [id number] 10mg Take 1 U nivers 10 mg 7-02 tablet by ity of tablet 00:00: mouth [place] 00 daily. Medical Branch amLODIPine Yes [id number] 10mg Take 1 U nivers 10 mg 7-02 tablet by ity of tablet 00:00: mouth [place] 00 daily. Medical Branch amLODIPine Yes [id number] 10mg Take 1 U nivers 10 mg 7-02 tablet by ity of tablet 00:00: mouth [place] 00 daily. Medical Branch amLODIPine Yes [id number] 10mg Take 1 U nivers 10 mg 7-02 tablet by ity of tablet 00:00: mouth [place] 00 daily. Medical Branch amLODIPine Yes [id number] 10mg Take 1 U nivers 10 mg 7-02 tablet by ity of tablet 00:00: mouth [place] 00 daily. Medical Branch amLODIPine Yes [id number] 10mg Take 1 U nivers 10 mg 7-02 tablet by ity of tablet 00:00: mouth [place] 00 daily. Medical Branch amLODIPine Yes [id number] 10mg Take 1 U nivers 10 mg 7-02 tablet by ity of tablet 00:00: mouth [place] 00 daily. Medical Branch amLODIPine Yes [id number] 10mg Take 1 U nivers 10 mg 7-02 tablet by ity of tablet 00:00: mouth [place] 00 daily. Medical Branch amLODIPine Yes [id number] 10mg Take 1 U nivers 10 mg 7-02 tablet by ity of tablet 00:00: mouth [place] 00 daily. Medical Branch amLODIPine Yes [id number] 10mg Take 1 U nivers 10 mg 7-02 tablet by ity of tablet 00:00: mouth [place] 00 daily. Medical Branch amLODIPine Yes 10mg Take 10 mg [...] Claritin Yes Todd 1 tablet C ommon [facility] Doxazosin Doxazosin Yes Todd take 1 C ommon Mesylate Mesylate [place] tablet by S pirit mouth - [facility] twice a [facility] Furosemide Furosemide Yes Todd take 1 Common [place] tablet by Spirit mouth - [facility] twice a [facility] Toujeo Toujeo Yes Todd INJECT SUB Com mon SoloStar SoloStar Davis 38 UNITS Sp karlee DAILY - [facility] Glimepiride Glimepiride Yes Todd take 1 Common [place] tablet by Spirit mouth - [facility]I every day [facility] Atorvastati Atorvastati Yes Todd TAKE 1 Common n Calcium n Calcium [place] TABLET BY Spirit MOUTH - [facility] EVERY DAY [facility] Vitamin D-3 Vitamin D-3 Yes Todd as Common [facility] directed [facility] Amlodipine Amlodipine Yes Todd take 1 Common Besylate Besylate [place] tablet by S pirit mouth - CHI every day [facility] Tradjenta Tradjenta Yes Todd TAKE 1 C ommon [place] TABLET BY Spirit MOUTH - [facility] EVERY DAY ONCE A DAY [address] Metoprolol Metoprolol Yes Todd take 1 Common Tartrate Tartrate [place] tablet by S pirit mouth - CHI twice a [facility] Atorvastati Atorvastati Yes Todd take 1 Common n Calcium n Calcium [place] tablet by Spirit mouth - [facility]I every day [facility] Furosemide Furosemide No BID Furosemide 40 MG [...] No QD Victoza 18 MG/3ML MG/3ML MG/3ML [place] Topradeepo No QD [place] SoloStar SoloStar SoloStar 300 UNIT/ML 300 UNIT/ML 300 UNIT/ML [...] single dose 2020-04-27 Completed [facility] 15:11[facility]00 [facility] Hepatitis A (adult) Hepatitis A (adult) 2018-10-07 Completed [facility] 11:11:00 [facility] Tdap - Tdap - 2013-04-14 Completed [facility] 11:10:00 [facility] Vital Signs Vital Name Observation Time Observation Value Comments Source Systolic blood 2022-02-12 18:19:00 176 mm[Hg] [facility] pressure [facility] Diastolic blood 2022-02-12 18:19:00 95 mm[Hg] [facility] Heart rate 2022-02-12 18:19:00 72 /min [facility] Respiratory rate 2022-02-12 18:19:00 15 /min [facility] Oxygen saturation in 2022-02-12 18:19:00 100 /min [facility] Arterial blood by [facility] Pulse oximetry Branch Body temperature 2022-02-12 16:12:01 37.11 Aparna [facility] Body weight 2022-02-12 15:35:00 109 kg [facility] BMI 2022-02-12 15:35:00 36.54 kg/m2 Universi ty [facility] height 2020-06-16 15:20:00 71 [in_i] [facility] weight 2020-06-16 15:20:00 267.5 [lb_av] Common [facility] temperature 2020-06-16 15:20:00 98.8 [degF] Common [facility] bmi 2020-06-16 15:20:00 37.3 kg/m2 Common S [facility] oximetry 2020-06-16 15:20:00 97 % [facility] respiratory rate 2020-06-16 15:20:00 17 /min Comm on [facility] blood pressure 2020-06-16 15:20:00 138 mm[Hg] Common [facility] systolic [facility] blood pressure 2020-06-16 15:20:00 74 mm[Hg] Common [facility] diastolic [facility] Systolic blood 2020-02-09 20:54:00 169 mm[Hg] Univer sity of pressure [facility] Diastolic blood 2020-02-09 20:54:00 101 mm[Hg] Unive rsity of [facility] Heart rate 2020-02-09 20:54:00 88 /min Universi [facility] Body temperature 2020-02-09 20:54:00 36.83 Aparna [facility] 2020-02-09 20:54:00 20 /min [facility] Body height 2020-02-09 20:54:00 172.7 cm Universi ty [facility] Body weight 2020-02-09 20:54:00 [facility] 2020-02-09 20:54:00 37.86 kg/m2 [facility] Oxygen saturation in 2020-02-09 20:54:00 98 /min [facility] Arterial blood by [facility] Pulse oximetry Branch Systolic blood 2020-02-09 20:54:00 169 mm[Hg] Univer sity of pressure [facility] Diastolic blood 2020-02-09 20:54:00 101 mm[Hg] Unive rsity of [facility] Heart rate 2020-02-09 20:54:00 88 /min [facility]i [facility] [place] [facility] Body temperature 2020-02-09 20:54:00 36.83 Aparna [facility] [place] [facility] Respiratory rate 2020-02-09 20:54:00 20 /min Univ [facility] [place] [facility] Body height 2020-02-09 20:54:00 172.7 cm Universi [facility] [place] [facility] Body weight 2020-02-09 20:54:00 112.946 kg Universi ty [facility] [place] [facility] BMI 2020-02-09 20:54:00 37.86 kg/m2 Universi ty [facility] [place] [facility] Oxygen saturation in 2020-02-09 20:54:00 98 /min University of Arterial blood by [place] [facility] Pulse oximetry Branch Systolic blood 2020-01-29 19:55:00 123 mm[Hg] Univer sity of pressure [place] [facility] Diastolic blood 2020-01-29 19:55:00 81 mm[Hg] Unive rsity of pressure [place] [facility] Respiratory rate 2020-01-29 19:55:00 12 /min Univ ers[facility] [place] [facility] Oxygen saturation in 2020-01-29 19:55:00 97 /min University of Arterial blood by [facility] Pulse oximetry Branch Heart rate 2020-01-29 19:40:00 72 /min [facility]i ty [facility] [place] [facility] Body temperature 2020-01-29 19:25:00 36.89 Aparna [facility] [place] [facility] Systolic blood 2020-01-28 16:36:00 111 mm[Hg] Univer sity of pressure [place] [facility] Diastolic blood 2020-01-28 16:36:00 76 mm[Hg] Unive rsity of pressure [place] [facility] Heart rate 2020-01-28 16:36:00 100 /min [facility]i [facility] [place] [facility] Body temperature 2020-01-28 16:36:00 37.44 Aparna Univ [facility] [place] [facility] Respiratory rate 2020-01-28 16:36:00 18 /min Univ [facility] [place] [facility] Body weight 2020-01-28 16:36:00 110.859 kg [facility]i [facility] [place] [facility] BMI 2020-01-28 16:36:00 34.10 kg/m2 [facility]i [facility] [place] [facility] Systolic blood 2019-03-27 16:59:00 132 mm[Hg] Univer sity of pressure [place] [facility] Diastolic blood 2019-03-27 16:59:00 82 mm[Hg] [facility] Oxygen saturation in 2019-03-27 16:59:00 100 /min [facility] Arterial blood by [facility] Pulse oximetry Branch Heart rate 2019-03-27 16:45:00 81 /min Universi ty [facility] Respiratory rate 2019-03-27 16:45:00 20 /min [facility] Body temperature 2019-03-27 16:37:00 36.94 Aparna [facility] Body height 2019-03-25 17:00:00 180.3 cm Universi ty [facility] Body weight 2019-03-25 17:00:00 [facility]35 [facility] BMI 2019-03-25 17:00:00 36.26 kg/m2 [facility] Systolic blood 2019-03-12 19:16:00 122 mm[Hg] Univer sity of [facility] Diastolic blood 2019-03-12 19:16:00 79 mm[Hg] Unive rsity of [facility] Heart rate 2019-03-12 19:16:00 85 /min [facility] Body temperature 2019-03-12 19:16:00 38.11 Aparna [facility] Respiratory rate 2019-03-12 19:16:00 18 /min [facility] Body height 2019-03-12 19:16:00 172.7 cm [facility] [facility] Body weight 2019-03-12 19:16:00 116.484 kg [facility] BMI 2019-03-12 19:16:00 39.05 kg/m2 [facility] Procedures Procedure Date / Time Performing Clinician Source Performed XR FOOT 3+ VW LEFT 2022-02-12 17:18:00 Timothy Earl [facility] CBC WITH DIFF 2022-02-12 16:35:00 Timothy Earl Bond o [facility] COMP. METABOLIC PANEL 2022-02-12 16:21:00 Timothy Earl [facility] ([id number]) [facility] CONSENT/REFUSAL FOR 2022-02-12 15:18:13 Doctor Unassigned, No [facility] [place] [facility] TREATMENT Name [facility] BASIC METABOLIC PANEL 2020-01-29 16:55:00 Mitzi Benz [facility] [place] [facility] (NA, K, CL, CO2, Medical Branch GLUCOSE, BUN, CREATININE, CA) POCT GLUCOSE(AGE 2020-01-29 15:48:00 Perfecto Bailey [facility] >30DAYS) Medical [place] DAY SURGERY - ADC 2020-01-29 05:01:00 Doctor Unassigned, No [facility] EXTERNAL PROVIDER 2020-01-28 05:01:00 Doctor Unassigned, No [facility] RECORDS Name Medical Branch POCT GLUCOSE(AGE 2019-03-27 16:31:00 Debra Trejo [facility] 0-30DAYS) [facility] EKG-12 LEAD 2019-03-27 14:15:39 Aleksandar [facility] john rossi [facility] BASIC METABOLIC PANEL 2019-03-27 13:52:00 Leona Telles [facility] (NA, K, CL, CO2, Medical Branch GLUCOSE, BUN, CREATININE, CA) CBC WITH DIFFERENTIAL 2019-03-27 13:51:00 Leona Telles [facility] ASSIGNMENT OF BENEFITS 2019-03-12 19:03:56 Doctor Unassigned, No [facility] Name Medical Branch REFERRAL- 2019-03-10 05:01:00 Doctor Unassigned, No [facility] REQUEST/RESPONSE Name [facility] REFERRAL- 2019-02-17 05:01:00 Doctor Unassigned, No [facility] REQUEST/RESPONSE Name [facility] Plan of Care Planned Activity Planned Date Details Comments Source Future Scheduled 2022-06-20 COVID-19 VACCINE (#1) [facility] Test 21:54:07 [code = COVID-19 VACCINE (#1)] Future Scheduled 2022-06-20 Pneumococcal Vaccine: [facility] Test 21:54:07 Pediatrics (0 to 5 Years) and At-Risk Patients (6 to 64 Years) (1 - PCV) [code = Pneumococcal Vaccine: Pediatrics (0 to 5 Years) and At-Risk Patients (6 to 64 Years) (1 - PCV)] Future Scheduled 2022-06-20 DIABETES: RETINAL EYE [facility] Test 21:54:07 EXAM [code = DIABETES: RETINAL EYE EXAM] Future Scheduled 2022-06-20 DIABETIC FOOT EXAM [facility] Test 21:54:07 [code = DIABETIC FOOT EXAM] Future Scheduled 2022-06-20 Hepatitis C screening [facility] Test 21:54:07 (procedure) [code = 654271210] Future Scheduled 2022-06-20 COLONOSCOPY SCREENING [facility] Test 21:54:07 [code = COLONOSCOPY SCREENING] Future Scheduled 2022-06-20 INFLUENZA VACCINE [facility] Test 21:54:07 [code = INFLUENZA VACCINE] Future Scheduled 2022-05-14 HEPATITIS B VACCINES [facility] Test 04:26:27 (1 of 3 - 3-dose series) [code = HEPATITIS B VACCINES (1 of 3 - 3-dose series)] Future Scheduled 2022-05-14 COVID-19 VACCINE (#1) [facility] Test 04:26:27 [code = COVID-19 VACCINE (#1)] Future Scheduled 2022-05-14 Pneumococcal Vaccine: [facility] Test 04:26:27 Pediatrics (0 to 5 Years) and At-Risk Patients (6 to 64 Years) (1 - PCV) [code = Pneumococcal Vaccine: Pediatrics (0 to 5 Years) and At-Risk Patients (6 to 64 Years) (1 - PCV)] Future Scheduled 2022-05-14 DIABETES: RETINAL EYE [facility] Test 04:26:27 EXAM [code = DIABETES: RETINAL EYE EXAM] Future Scheduled 2022-05-14 DIABETIC FOOT EXAM [facility] Test 04:26:27 [code = DIABETIC FOOT EXAM] Future Scheduled 2022-05-14 Hepatitis C screening [facility] Test 04:26:27 (procedure) [code = 592504210] Future Scheduled 2022-05-14 COLONOSCOPY SCREENING [facility] Test 04:26:27 [code = COLONOSCOPY SCREENING] Future Scheduled 2022-05-14 INFLUENZA VACCINE [facility] Test 04:26:27 [code = INFLUENZA VACCINE] Future Scheduled 2021-08-08 COVID-19 VACCINE (1) [facility] Test 22:23:08 [code = COVID-19 VACCINE (1)] Future Scheduled 2021-08-08 DIABETES: RETINAL EYE [facility] Test 22:23:08 EXAM [code = DIABETES: RETINAL EYE EXAM] Future Scheduled 2021-08-08 DIABETIC FOOT EXAM [facility] Test 22:23:08 [code = DIABETIC FOOT EXAM] Future Scheduled 2021-08-08 Hepatitis C screening [facility] Test 22:23:08 (procedure) [code = 400517344] Future Scheduled 2021-08-08 INFLUENZA VACCINE Method [facility] Test 22:23:08 [code = INFLUENZA VACCINE] Encounters Start End Encounter Admission Attending Care Care Encounter Source Date/Time Date/Time Type Type Clinicians Facility Department ID 2021-08-02 Outpatient Davis, STLMLC STLMLC [id number] Common 12:37:29 Todd [id number] [facility] 2021-08-02 Outpatient Davis, STLMLC STLMLC [id number] Common 11:44:45 Todd [id number] [facility] 2021-08-02 Outpatient Davis, STLMLC STLMLC [id number] Common 11:44:18 Todd [id number] [facility] 2021-08-02 Outpatient Davis, STLMLC STLC [id number] Common 11:25:55 Todd [id number] [facility] 2021-08-02 Outpatient Davis, STLMLC STLMLC [id number] Common 11:25:27 Todd [id number] [facility] 2021-08-02 Outpatient Davis, STLMLC STLMLC [id number] Common 11:17:13 Todd [id number] [facility] 2021-08-02 Outpatient Davis, STLMLC STLC [id number] Common 11:12:09 Todd [id number] [facility] 2021-08-02 Outpatient Davis, STLMLC STLC [id number] Common 11:07:27 Todd [id number] [facility] 2021-05-05 Outpatient R [facility] EFRA [id number] Univers 08:28:09 DEBRA [facility] 2022-02-12 2022-02-12 Armando EARL WAJESUS ERT [id number] Univers 10:36:00 13:43:00 TIMOTHY [facility] 2022-02-12 2022-02-12 [facility] [id number] Univers 10:36:00 13:43:00 Timothy MIR [id number] i aCra 4.2.7.2.686 Jace [facility] [phone] [facility] [address] 2020-06-16 2020-06-16 OFFICE [facility] [id number] Co mmon 00:00:00 00:00:00 VISIT Spirit ESTAB PT - CHI LEVEL 4 [facility] 2020-05-24 2020-05-24 Outpatient SUSANNADELVIN [facility] [id number] [place] 00:00:00 00:00:00 125 Method i 2020-04-26 2020-04-26 Outpatient SUSANNADELVIN [facility] [id number] [address] [place] 00:00:00 00:00:00 028 Method i 2020-04-14 2020-04-14 Outpatient SUSANNADELVIN [facility] [id number] 2770 [place] 00:00:00 00:00:00 467 Method i 2020-04-14 2020-04-14 Outpatient [facility] [id number] 6[address] [place] 00:00:00 00:00:00 581 Method i 2020-03-17 2020-03-17 Out[facility] [id number] Common 14:10:00 14:10:[address] [facility] 2020-03-15 2020-03-15 Outpatient SUSANNADELVIN [facility] [id number] 1943 [place] 00:00:00 00:00:[address] 2020-03-10 2020-03-10 Outpatient SUSANNADELVIN [facility] [id number] 1804 [place] 00:00:00 00:00:00 154 Method i 2020-03-10 2020-03-10 Outpatient SUSANNADELVIN [facility] [id number] 4515 [place] 00:00:00 00:00:[address] 2020-03-08 2020-03-08 Outpatient SACHA [facility] [id number] [address] [place] 00:00:00 00:00:00 GUIL[address]ME [address] 2020-03-08 2020-03-08 Outpatient SACHA [facility] [id number] 939 [place] 00:00:00 00:00:00 GUILHERME 916 Method i 2020-02-22 2020-02-22 Outpatient Brazkymberly Gutierrezt [id number] Common 16:58:00 16:58:00 [place] [facility] it [facility] 2020-02-09 2020-02-09 Office [facility] [id number] 15:18:54 16:25:44 Visit Debra Mir [id number] Lizet 4.2.7.2.686 Professio [phone] [address] 2020-02-09 2020-02-09 [facility] [id number] Univers 15:18:54 16:25:44 Visit Debra Mir [id number] [place] [phone] Me dical [address] 2020-02-09 2020-02-09 Outpatient R NEIL [facility] [id number] Univers 15:30:00 15:30:00 DEBRA itsophia of [facility] 2020-01-29 2020-01-29 [facility] [id number] Univers 08:26:00 15:00:00 Encounter Debra Cyn 350.1.13.10 [place] [phone] [facility] [address] 2020-01-29 2020-01-29 Laboratory Only, Adc Test [facility] 1.2.840. 114 [id number] Univers 08:31:17 08:46:17 Only Debra Trejoton 350.1.13.10 [place] [phone] [facility] [address] 2020-01-29 2020-01-29 Orders Doctor MARTEL 1.2.840.114 [id number] Univers 00:00:00 00:00:00 Only Unassigned, REINA 350.1.13.10 ity of [place] [facility] 4.2.7.2.686 Alfred as [phone] [address] 2020-01-28 2020-01-28 Office [facility] [id number] Univers 11:28:36 11:56:45 Visit Debra Mir 350.1.13.10 i [place] [phone] Sc [facility] [address] [facility] 2020-01-28 2020-01-28 [facility] [id number] Univers 11:15:00 11:15:00 DEBRA ity of [facility] 2020-01-28 2020-01-28 Orders Doctor DELONTE 1.2.840.114 [id number] Univers 00:00:00 00:00:00 Only Unassigned, REINA 350.1.13.10 ity of [place] [facility] 4.2.7.2.686 Alfred as [phone] [address] 2020-01-28 2020-01-28 [facility] 1.2.840.114 [id number] Univers 00:00:00 00:00:00 Surgery Leona Mir 350.1.13.10 [place] [phone] Sc dical nal [address] [facility] 2020-01-20 2020-01-20 Out[facility] [id number] Common 15:47:00 15:47:[address] [facility] 2019-12-16 2019-12-16 [facility] [id number] Common 15:00:00 15:00:[address] [facility] 2019-12-16 2019-12-16 Out[facility] [id number] Common 14:45:00 14:45:[address] [facility] 2019-11-26 2019-11-26 Out[facility] [id number] Common 13:57:00 13:57:00 t [facility] [address] [facility] 2019-09-15 2019-09-15 Out[facility] [id number] Common 15:15:00 15:15:[address] [facility] 2019-09-14 2019-09-14 Outpatient [facility] [id number] Common 07:56:00 07:56:[address] [facility] 2019-09-10 2019-09-10 Out[facility] [id number] Common 10:00:00 10:00:00 [facility] 2019-09-07 2019-09-07 Out[facility] [id number] Common 09:39:00 09:39:[address] [facility] 2019-08-13 2019-08-13 Outpatient [facility] [id number] Common 14:49:00 14:49:[address] [facility] 2019-07-20 2019-07-20 Outpatient Ila TREJO [facility] [id number] Univers 09:15:00 [facility] 2019-07-06 2019-07-06 [facility] EFRA [id number] Univers 10:18:00 13:59:00 DEBRA juan [facility] 2019-06-25 2019-06-25 Out[facility] [id number] Common 11:04:00 11:04:[address] [facility] 2019-06-18 2019-06-18 Outpatient Ila TREJO [facility] [id number] Univers 14:30:00 14:54:07 DEBRA juan [facility] 2019-06-15 2019-06-15 Out[facility] [id number] Common 10:00:00 10:00:[address] [facility] 2019-06-10 2019-06-10 Outpatient [facility] [id number] Common 08:33:00 08:33:[address] [facility] 2019-06-08 2019-06-08 Outpatient [facility] [id number] Common 13:51:00 13:51:00 t [facility] [address] [facility] 2019-04-09 2019-04-09 [facility] [id number] Univers 13:30:00 13:40:01 DEBRA juan [facility] 2019-04-08 2019-04-08 Outpatient [facility] [id number] Common 16:33:00 16:33:[address] [facility] 2019-03-27 2019-03-27 [facility] 1.2.840.114 [id number] Univers 08:38:00 13:00:00 Encounter Debra Mir 350.1.13.10 [place] [phone] [address] 2019-03-17 2019-03-17 Telephone [facility] [id number] Univers 00:00:00 00:00:00 Leona Mir 350.1.13.10 [place] [phone] Sc [facility] [address] [facility] 2019-03-17 2019-03-17 Telephone [facility] [id number] Univers 00:00:00 00:00:00 Leona Mir 350.1.13.10 [place] [phone] Sc dical nal [address] [facility] 2019-03-13 2019-03-13 Outpatient [facility] [id number] Common 08:45:00 08:45:[address] [facility] 2019-03-12 2019-03-12 Office [facility] [id number] Univers 14:05:56 15:28:12 Visit Debra Mir 350.1.13.10 i ty [place]2.[place] [phone] Sc dical nal [address] [facility] 2019-03-12 2019-03-12 [facility] [id number] Univers 14:00:00 14:43:39 DEBRA yessica of [facility] 2019-03-12 2019-03-12 Orders Doctor DELONTE 1.2.840.114 [id number] Univers 00:00:00 00:00:00 Only Unassigned, REINA 350.1.13.10 ity of [place] [facility] 4.2.7.2.686 Alfred as [phone] [address] 2019-03-12 2019-03-12 [facility] 1.2.840.114 [id number] Univers 00:00:00 00:00:00 Surgery Leona Booth Cyn 350.1.13.10 [place] [phone] Sc dical nal [address] [facility] 2019-03-10 2019-03-10 Orders Doctor DELONTE 1.2.840.114 [id number] Univers 00:00:00 00:00:00 Only Unassigned, REINA 350.1.13.10 ity of [place] [facility] 4.2.7.2.686 Alfred as [phone] [address] 2019-02-17 2019-02-17 Orders Doctor DELONTE 1.2.840.114 [id number] Univers 00:00:00 00:00:00 Only Unassigned, REINA 350.1.13.10 ity of [place] [facility] 4.2.7.2.686 Alfred as [phone] [address] Results Test Description Test Time Test Comments Results Result Comments Source COMP. METABOLIC PANEL (06509) 2022-02-12 16:53:37 Test Item Value Reference Range Interpretation Comme nts NA (test code = 1675217450) 136 mmol/L 135-145 K (test code = 7315095352) 4.6 mmol/L 3.5-5 CL (test code = 7440169607) 96 mmol/L 98-108 L CO2 TOTAL (test code = 1403448502) 24 mmol/L 23-31 AGAP (test code = 8807512319) 2-16 BUN (test code = 1697062154) 54 mg/dL 7-23 H GLUCOSE (test code = 8133431000) 241 mg/dL 70-110 H CREATININE (test code = 9.53 mg/dL 0.6-1.25 H 0025433697) TOTAL BILI (test code = 0.6 mg/dL 0.1-1.6 7478836761) CALCIUM (test code = 0813607208) 8.9 mg/dL 8.6-10.6 T PROTEIN (test code = 5978221654) 7.3 g/dL 6.3-8.2 ALBUMIN (test code = 4483498580) 3.7 g/dL 3.5-5 ALK PHOS (test code = 0161350729) 146 U/L 34-122 H ALTv (test code = 1742-6) 17 U/L 5-50 AST(SGOT) (test code = 8946327710) 17 U/L 13-40 eGFR (test code = 8084115287) mL/min/1.73m2 CRISTIANA (test code = CRISTIANA) Association [...] tests). Lab Interpretation (test code = Abnormal 08247-5) [facility] WITH [id number] 16:42:15 Test Item Value Reference Range Interpretation Comments WBC (test code = See_Comment [Automated 6690-2) message] The sy stem which generated this [...] RDW-SD (test code = 47.8 fL 38.5-51.6 73562-1) RDW-CV (test code = 14.8 % 12.1-15.4 788-0) PLT (test code = See_Comment [Automated 777-3) message] The sy stem which generated this result transmitted reference range : 150 - 328 10*3/ ?L. The reference r jesse was not used to interpret this result as normal/abnormal . MPV (test code = 10.0 fL 9.8-13 23379-2) NRBC/100 WBC (test See_Comment [Automat ed code = 5857126345) message] The system which generated this result transmitted reference range : 0.0 - 10.0 /100 WBCs. The refer ence range was not u sed to interpret th is result as normal/abnormal . NRBC x10^3 (test code See_Comment [Auto mated = 0707007803) message] The s ystem which generated this result transmitted reference range : 10*3/?L. The reference range was not used to interpret this result as normal/abnormal . GRAN MAT (NEUT) % 77.8 % (test code = 770-8) IMM GRAN % (test code 0.50 % = 4829295503) LYMPH % (test code = 10.8 % 736-9) MONO % (test code = 7.7 % 5905-5) EOS % (test code = 2.9 % 713-8) BASO % (test code = 0.3 % 706-2) GRAN MAT x10^3(ANC) 7.37 10*3/uL 1.99-6.95 H (test code = 6767500133) IMM GRAN x10^3 (test 0.05 10*3/uL 0-0.06 code = 4935092052) LYMPH x10^3 (test code 1.02 10*3/uL 1.09-3.23 L = 731-0) MONO x10^3 (test code 0.73 10*3/uL 0.36-1.02 = 742-7) EOS x10^3 (test code = 0.27 10*3/uL 0.06-0.53 711-2) BASO x10^3 (test code 0.03 10*3/uL 0.01-0.09 = 704-7) Lab Interpretation Abnormal (test code = 93169-6) [facility] RNA [Presence] in Respiratory specimen by BRAD with probe [id number] 23:16:36 Test Item Value Reference Range Interpretation Comments SARS-CoV-2 (COVID-19) RNA Not detected Not-Detected [Presence] in Respiratory specimen by BRAD with probe detection (test code = 85187-9) [facility] Metabolic Panel (NA, K, CL, CO2, Glucose, BUN, Creatinine, CA)2020-01-29 17:22:00 Test Item Value Reference Range Interpretation Comments NA (test code = 136 mmol/L 135-145 7626767503) K (test code = 3.6 mmol/L 3.5-5 0498449887) CL (test code = 97 mmol/L 98-108 L 4089834742) CO2 TOTAL (test code = 28 mmol/L 23-31 5729843207) AGAP (test code = 2-16 8783113330) BUN (test code = 49 mg/dL 7-23 H 4539564599) GLUCOSE (test code = 313 mg/dL 70-110 H 9209611558) CREATININE (test code = 9.39 mg/dL 0.6-1.25 H 8687226880) CALCIUM (test code = 9.1 mg/dL 8.6-10.6 5462100154) eGFR Calculation mL/min/1.73m2 (Non-) (test code = 9374199524) eGFR Calculation mL/min/1.73m2 () (test code = 0067433813) CRISTIANA (test code = CRISTIANA) Association of [...] tests). Lab Interpretation Abnormal (test code = 23406-4) [facility] [id number] 15:48:00 Test Item Value Reference Range Interpretation Comments POCT Glu (age>30days) (test code = 327 mg/dL 70-110 A 3342) Lab Interpretation (test code = Abnormal 23857-9) [facility] GLUCOSE(AGE 0-30DAYS)2019-03-27 16:31:00 Test Item Value Reference Range Interpretation Comments POCT Glu (age 0-30days) (test code 270 mg/dl 40-110 A = 3343) Lab Interpretation (test code = Abnormal 74666-0) [facility] WITH [id number] 14:20:00 Test Item Value Reference Range Interpretation Comments WBC (test code = See_Comment [Automated 1990-2) message] The sy stem which generated this result transmitted reference range : 4.20 - 10.70 10*3/?L. The reference range was not used to interpret this result as normal/abnormal . RBC (test code = See_Comment L [Automated 569-8) message] The sy stem which generated this [...] RDW-SD (test code = 42.0 fL 38.5-51.6 86200-0) RDW-CV (test code = 13.5 % 12.1-15.4 788-0) PLT (test code = See_Comment [Automated 777-3) message] The sy stem which generated this result transmitted reference range : 150 - 328 10*3/ ?L. The reference r jesse was not used to interpret this result as normal/abnormal . MPV (test code = 10.3 fL 9.8-13 24339-2) NRBC/100 WBC (test See_Comment [Automat ed code = 2793149821) message] The system which generated this result transmitted reference range : 0.0 - 10.0 /100 WBCs. The refer ence range was not u sed to interpret th is result as normal/abnormal . NRBC x10^3 (test code See_Comment [Auto mated = 5997038113) message] The s ystem which generated this result transmitted reference range : 10*3/?L. The reference range was not used to interpret this result as normal/abnormal . GRAN MAT (NEUT) % 71.8 % (test code = 770-8) IMM GRAN % (test code 0.90 % = 2654628370) LYMPH % (test code = 17.0 % 736-9) MONO % (test code = 6.2 % 5905-5) EOS % (test code = 3.7 % 713-8) BASO % (test code = 0.4 % 706-2) GRAN MAT x10^3(ANC) 6.71 10*3/uL 1.99-6.95 (test code = 7733875964) IMM GRAN x10^3 (test 0.08 10*3/uL 0-0.06 H code = 1203441976) LYMPH x10^3 (test code 1.59 10*3/uL 1.09-3.23 = 731-0) MONO x10^3 (test code 0.58 10*3/uL 0.36-1.02 = 742-7) EOS x10^3 (test code = 0.35 10*3/uL 0.06-0.53 711-2) BASO x10^3 (test code 0.04 10*3/uL 0.01-0.09 = 704-7) Lab Interpretation Abnormal (test code = 77477-0) [facility] METABOLIC PANEL (NA, K, CL, CO2, GLUCOSE, BUN, CREATININE, CA)2019-03-27 14:07:00 Test Item Value Reference Range Interpretation Comments NA (test code = 141 mmol/L 135-145 0669743450) K (test code = 4.5 mmol/L 3.5-5 6856487902) CL (test code = 102 mmol/L 98-108 6215042147) CO2 TOTAL (test code = 27 mmol/L 23-31 4047834457) AGAP (test code = 2-16 5975192107) BUN (test code = 44 mg/dL 7-23 H 9696997558) GLUCOSE (test code = 291 mg/dL 70-110 H 0261746693) CREATININE (test code = 7.35 mg/dL 0.6-1.25 H 3691102251) CALCIUM (test code = 9.5 mg/dL 8.6-10.6 8465705689) eGFR Calculation mL/min/1.73m2 (Non-) (test code = 5162064043) eGFR Calculation mL/min/1.73m2 () (test code = 1662125495) CRISTIANA (test code = CRISTIANA) Association of [...] tests). Lab Interpretation Abnormal (test code = 33500-8) [facility]
--- NOTE | 2022-06-20 22:51 | ER ---
Nurse's Notes [facility] Name: Nikita Bartlett Age: 46 yrs Sex: Male : 1975 Arrival Date: 06/20/2022 Time: 21:56 Bed 3 Private MD: Diagnosis: Foot Laceration/ Open wound of foot Presentation: 06/20 22:01 Chief complaint: Spouse and/or significant other states: open wound to right heel pt kl reports noticed x 1 week ago opened this evening and began bleeding pt denies pain at this time . Coronavirus screen: Vaccine status: Patient reports receiving the 2nd dose of the covid vaccine. Ebola Screen: Patient negative for fever greater than or equal to 101.5 degrees Fahrenheit, and additional compatible Ebola Virus Disease symptoms. Initial Sepsis Screen: Does the patient meet any 2 criteria? No. Patient's initial sepsis screen is negative. Does the patient have a suspected source of infection? Yes: Skin breakdown/wound. Risk Assessment: Do you want to hurt yourself or someone else? Patient reports no desire to harm self or others. 22:01 [facility] 22:01 Acuity: OCTAVIO 3 06/21 01:21 Onset of symptoms was June 04, 2022. Triage Assessment: 06/20 22:04 General: Appears in no apparent distress. comfortable, well groomed, well developed, kl Behavior is calm, cooperative. Pain: Denies pain. EENT: No deficits noted. No signs and/or symptoms were reported regarding the EENT system. Neuro: No deficits noted. Level of Consciousness is awake, alert, obeys commands, Speech is normal, Facial symmetry appears normal. Cardiovascular: No deficits noted. Respiratory: No deficits noted. GI: No deficits noted. No signs and/or symptoms were reported involving the gastrointestinal system. : No deficits noted. No signs and/or symptoms were reported regarding the genitourinary system. Derm: Wound noted right foot. Historical: - Allergies: 22:03 No Known Allergies; - Home Meds: 22:03 amlodipine oral [Active]; atorvastatin Oral [Active]; Aspirin Oral [Active]; doxyzosen kl [Active]; erythropoeten [Active]; Glimepiride Oral [Active]; hydrochlorothiazide 25 mg Oral tab [Active]; Janumet Oral [Active]; Metoprolol Tartrate Oral [Active]; olmesartan Oral [Active]; Tradjenta 5 mg Oral tab [Active]; Victoza 2-Mg subcutaneous [Active]; vitamins [Active]; - PMHx: 22:03 "Leaking heart valve"; Anemia; Diabetes - NIDDM; Dialysis; Enlarged Heart; kl Hypertension; osteomyelitis; - Immunization history:: Adult Immunizations up to date. - Social history:: Smoking status: Patient denies any tobacco usage or history of. Screenin:06 [facility] ED Fall Risk Assessment (Adult) History of falling in the last 3 months, kl including since admission No falls in past 3 months (0 pts) Confusion or Disorientation No (0 pts) Intoxicated or Sedated No (0 pts) Impaired Gait Yes (1 pt) Mobility Assist Device Used No (0 pt) Altered Elimination No (0 pt) Score/Fall Risk Level 0 - 2 = Low Risk Oriented to surroundings, Maintained a safe environment, Educated pt \\T\\ family on fall prevention, incl call for assistance when getting out of bed, Assessed \\T\\ reinforced patient's understanding of fall precautions, Hourly rounding (assess needs \\T\\ fall precautionary measures) done. Abuse screen: Denies threats or abuse. Nutritional screening: No deficits noted. Tuberculosis screening: No symptoms or risk factors identified. 22:12 Fall Risk IV access (20 points). Gait- Impaired (20 pts.). Total [place] Fall Scale ha1 indicates Low Risk Score (25-44 pts). Fall prevention measures have been instituted. Side Rails Up X 2 Placed close to Nursing Station Frequent Obs/Assesments occuring Family Present and informed to notify staff if they need to leave bedside As available Patient and Family Educated on Fall Prevention Program and strategies. Assessment: 22:05 Reassessment: see triage assessment. Vital Signs: 22:01 BP 192 / 83; Pulse 79; Resp 20; Temp 98.0; Pulse Ox 99% on R/A; Weight 111.58 kg (M); kl Height 5 ft. 10 in. (177.80 cm); Pain 0/10; 22:24 BP 165 / 112; Pulse 81; Resp 18; Pulse Ox 99% on R/A; kl 06/21 01:20 BP 199 / 78; Pulse 77; Resp 18; Temp 98(O); Pulse Ox 99% on R/A; Pain 0/10; 01:22 BP 195 / 92; Pulse 78; Pulse Ox 98% on R/A; kl 06/20 22:01 Body Mass Index 35.30 (111.58 kg, 177.80 cm) ED Course: 06/20 21:56 Patient arrived in ED. sb4 21:56 Paulino Barth MD is Attending Physician. kdr 22:03 Triage completed. kl 22:12 Arm band placed on right wrist. ha1 22:23 No provider procedures requiring assistance completed. Inserted saline lock: 20 gauge kl in right hand, using aseptic technique. 22:44 Dressings: Kerlix X 1; right heel. kl 22:49 Ani Nguyen MD is Hospitalizing Provider. kdr 23:01 Wound Culture Sent. kl 23:01 Comprehensive Metabolic Panel Sent. kl 23:01 CBC with Diff Sent. kl 23:33 Foot Right 3 View XRAY In Process Unspecified. EDWY 06/21 01:21 Patient admitted, IV remains in place. Administered Medications: 06/20 23:44 Drug: Clindamycin 900 mg Route: IVPB; Infused Over: 30 mins; Site: right hand; 06/21 00:23 Follow up: IV Status: Completed infusion; IV Intake: 50ml 00:23 Drug: vancoMYCIN 1 grams Route: IVPB; Infused Over: 2 hrs; Site: right antecubital; Medication: 06/20 22:05 VIS not applicable for this client. Intake: 06/21 00:23 IV: 50ml; Total: 50ml. Outcome: 06/20 22:49 Discharge ordered by . kdr 22:51 Decision to Hospitalize by Provider. [facility] 06/21 01:21 Admitted to ICU via wheelchair, room 1, with chart. Condition: stable Discharge instructions given to patient, Instructed on the need for admit, Demonstrated understanding of instructions. 01:49 Patient left the ED. Signatures: Dispatcher [employer] EDMS Sallie Yao RN Paulino Gilbert MD MD kdr Ayala, Heidy, RN RN ha1 Brown, Sophia, PA-C PALa sb4
--- NOTE | 2022-06-20 22:51 | EDPHYS ---
Physician Documentation [facility] Name: Niktia Bartlett Age: 46 yrs Sex: Male : 1975 Arrival Date: 06/20/2022 Time: 21:56 Bed 3 Private MD: ED Physician Paulino Barth HPI: 06/21 01:38 This 46 yrs old Male presents to ER via EMS with complaints of Right foot bleeding. kdr 01:38 Patient was brought to the ED by EMS after he was noted to be bleeding from his right kdr foot wound bleeding. Patient states that he had an injury to the heel after stepping on a bottle About 2+ weeks ago. Since then the skin is steadily broken down and today started bleeding from the wound. According to EMS there was considerable blood at the scene where they picked the patient up. Bleeding has since subsided. Patient has been seen here several times for this injury and was advised to follow-up with podiatry however that has not occurred. Wound is very foul-smelling with some purulent drainage. Onset: The symptoms/episode began/occurred suddenly, 2 week(s) ago. Severity of symptoms: At their worst the symptoms were mild in the emergency department the symptoms are unchanged. The patient has not experienced similar symptoms in the past. The patient has been recently seen at the [facility] Emergency Department, a couple of weeks ago, last month. Historical: - Allergies: 06/20 22:03 No Known Allergies; kl - Home Meds: 22:03 amlodipine oral [Active]; atorvastatin Oral [Active]; Aspirin Oral [Active]; doxyzosen kl [Active]; erythropoeten [Active]; Glimepiride Oral [Active]; hydrochlorothiazide 25 mg Oral tab [Active]; Janumet Oral [Active]; Metoprolol Tartrate Oral [Active]; olmesartan Oral [Active]; Tradjenta 5 mg Oral tab [Active]; Victoza 2-Mg subcutaneous [Active]; vitamins [Active]; - PMHx: 22:03 "Leaking heart valve"; Anemia; Diabetes - NIDDM; Dialysis; Enlarged Heart; kl Hypertension; osteomyelitis; - Immunization history:: Adult Immunizations up to date. - Social history:: Smoking status: Patient denies any tobacco usage or history of. ROS: 06/21 01:38 Constitutional: Negative for fever, chills, and weight loss, Eyes: Negative for injury, kdr pain, redness, and discharge, ENT: Negative for injury, pain, and discharge, Neck: Negative for injury, pain, and swelling, Cardiovascular: Negative for chest pain, palpitations, and edema, Respiratory: Negative for shortness of breath, cough, wheezing, and pleuritic chest pain, Abdomen/GI: Negative for abdominal pain, nausea, vomiting, diarrhea, and constipation, Back: Negative for injury and pain, : Negative for injury, bleeding, discharge, and swelling, Neuro: Negative for headache, weakness, numbness, tingling, and seizure activity. Psych: Negative for depression, anxiety, suicide ideation, homicidal ideation, and hallucinations, Allergy/Immunology: Negative for hives, rash, and allergies, Endocrine: Negative for neck swelling, polydipsia, polyuria, polyphagia, and marked weight changes. MS/extremity: Positive for erythema, pain, swelling, tenderness, of the medial aspect of right heel. Skin: Positive for abscess, cellulitis, erythema, swelling, ulceration, of the medial aspect of right heel. Exam: 01:38 Constitutional: This is a well developed, well nourished patient who is awake, alert, kdr and in no acute distress. Head/Face: Normocephalic, atraumatic. Eyes: Pupils equal round and reactive to light, extra-ocular motions intact. Lids and lashes normal. Conjunctiva and sclera are non-icteric and not injected. Cornea within normal limits. Periorbital areas with no swelling, redness, or edema. Neck: Trachea midline, no thyromegaly or masses palpated, and no cervical lymphadenopathy. Supple, full range of motion without nuchal rigidity, or vertebral point tenderness. No Meningismus. Chest/axilla: Normal chest wall appearance and motion. Nontender with no deformity. No lesions are appreciated. Cardiovascular: Regular rate and rhythm with a normal S1 and S2. No gallops, murmurs, or rubs. Normal PMI, no JVD. No pulse deficits. Respiratory: Lungs have equal breath sounds bilaterally, clear to auscultation and percussion. No rales, rhonchi or wheezes noted. No increased work of breathing, no retractions or nasal flaring. Abdomen/GI: Soft, non-tender, with normal bowel sounds. No distension or tympany. No guarding or rebound. No evidence of tenderness throughout. Back: No spinal tenderness. No costovertebral tenderness. Full range of motion. Neuro: Awake and alert, GCS 15, oriented to person, place, time, and situation. Cranial nerves II-XII grossly intact. Motor strength 5/5 in all extremities. Sensory grossly intact. Cerebellar exam normal. Normal gait. Psych: Awake, alert, with orientation to person, place and time. Behavior, mood, and affect are within normal limits. 01:38 Skin: cellulitis, that is mild, that is moderate, confluent, on the medial aspect of right heel, induration, that is moderate is noted. Vital Signs: 06/20 22:01 BP 192 / 83; Pulse 79; Resp 20; Temp 98.0; Pulse Ox 99% on R/A; Weight 111.58 kg (M); kl Height 5 ft. 10 in. (177.80 cm); Pain 0/10; 22:24 BP 165 / 112; Pulse 81; Resp 18; Pulse Ox 99% on R/A; kl 06/21 01:20 BP 199 / 78; Pulse 77; Resp 18; Temp 98(O); Pulse Ox 99% on R/A; Pain 0/10; kl 01:22 BP 195 / 92; Pulse 78; Pulse Ox 98% on R/A; kl 06/20 22:01 Body Mass Index 35.30 (111.58 kg, 177.80 cm) kl MDM: 06/20 22:49 Patient medically screened. [facility] 06/21 01:38 Data reviewed: vital signs, nurses notes, lab test result(s), radiologic studies. kdr Counseling: I had a detailed discussion with the patient and/or guardian regarding: the historical points, exam findings, and any diagnostic results supporting the discharge/admit diagnosis, lab results, radiology results, the need for outpatient follow up. 06/20 22:47 Order name: CBC with Diff; Complete Time: 23:14 kdr 06/20 22:47 Order name: Comprehensive Metabolic Panel; Complete Time: 23:46 kdr 06/20 22:47 Order name: Foot Right 3 View XRAY kdr 06/20 22:47 Order name: Wound Culture kdr 06/21 00:06 Order name: SARS RAPID; Complete Time: 01:05 sb4 Administered Medications: 06/20 23:44 Drug: Clindamycin 900 mg Route: IVPB; Infused Over: 30 mins; Site: right hand; kl 06/21 00:23 Follow up: IV Status: Completed infusion; IV Intake: 50ml 00:23 Drug: vancoMYCIN 1 grams Route: IVPB; Infused Over: 2 hrs; Site: right antecubital; Disposition Summary: 06/20/22 22:51 Hospitalization Ordered Hospitalization Status: Observation kdr Provider: Ani Nguyen kdr Condition: Fair(06/20/22 22:51) kdr Problem: new(06/20/22 22:51) kdr Symptoms: are unchanged(06/20/22 22:51) kdr Bed/Room Type: Standard kdr Location: Intensive Care Unit(06/21/22 01:05) eb1 Room Assignment: 1-(06/21/22 01:05) eb1 Diagnosis - Foot Laceration/ Open wound of foot(06/20/22 22:51) kdr Forms: - Medication Reconciliation Form kdr - SBAR form kdr Signatures: Dispatcher [employer] EDSallie Arreaga RN RN Paulino Quintanilla MD MD kdr Basinger, Emily, RN RN eb1 Yesi Rahman PA-C PA-C sb4 Corrections: (The following items were deleted from the chart) 06/20 22:49 22:49 Home kdr kdr 22:49 22:49 new kdr kdr 22:49 22:49 are unchanged kdr kdr 22:49 22:49 Stable kdr kdr 22:49 22:49 Foot Laceration/ Open wound of foot kdr kdr 06/21 01:05 06/20 22:51 Telemetry/MedSurg (observation) kdr eb1 06/21 01:05 06/20 22:51 kdr eb1
[2022-06-20 23:09] LABS: Absolute Lymphocytes (CBC) 1.5 K/uL (0.7-4.9); Hematocrit 27.3 % (39.6-49.0); Lymphocytes % 25.9 % (15.3-44.8); MCV 86.5 fL (80-100); MPV 8.2 fL (7.6-11.3); RBC Red Blood Cell Count 3.16 M/uL (4.33-5.43)
[2022-06-20] MEDS ORDERED: VANCOMYCIN 1 GM/VIAL ONE (23:34)
[2022-06-20] MEDS ORDERED: NA CHLORIDE 0.9% 250 ML ONE (23:34)
[2022-06-20] MEDS ORDERED: CLINDAMYCIN 900MG/D5W 900 MG/50 ML IVPB IV ONE (23:34)
[2022-06-20 23:45] LABS: Albumin 3.2 g/dL (3.4-5.0); Bilirubin Total 0.4 mg/dL (0.2-1.0); Potassium 3.9 mmol/L (3.5-5.1); Protein, Total 8.2 g/dL (6.4-8.2)
[2022-06-21 00:53] LABS: SARS-CoV-2 Antigen Rapid Res Negative (Negative)
--- NOTE | 2022-06-21 00:59 | P.HP ---
Certification for Inpatient Patient admitted to: Inpatient With expected LOS: >2 Midnights Patient will require the following post-hospital care: None Practitioner: I am a practitioner with admitting privileges, knowledge of patient current condition, hospital course, and medical plan of care. Services: Services provided to patient in accordance with Admission requirements found in Title 42 Section 412.3 of the Code of Federal Regulations Patient History Date of Service: 06/21/22 Reason for admission: Diabetic Foot Ulcer History of Present Illness: Patient is a 46 year old male with past medical history of insulin dependent type 2 diabetes, ESRD on HD, hypertension, and chronic anemia who presented to the ED with a bleeding foot ulcer. Patient reports that he stepped on a bottle cap about 3 weeks ago and was supposed to follow up with podiatry but never did. He reports that it started bleeding a lot tonight. Xray showed "Edema and cellulitis with suspected ulceration lateral soft tissues in region of fifth metatarsal phalangeal joint. Erosive changes fifth metatarsal phalangeal joint. The findings are suspicious for osteomyelitis or septic arthritis. Correlation with magnetic resonance study needed for further characterization. No acute fracture or dislocation seen." He was started on clindamycin and vancomycin in ED. Patient is admitted for further management. Allergies No Known Drug Allergies Allergy (Verified 11/24/19 04:29) Unknown Home medications list reviewed: Yes Home Medications: RX: Amlodipine [Norvasc*] 10 mg PO DAILY 11/24/19 RX: Atorvastatin Calcium [Lipitor*] 10 mg PO DAILY 11/24/19 RX: Furosemide 40 mg PO BID 11/24/19 RX: Aspirin [Aspirin EC 81 MG] 81 mg PO DAILY 09/06/20 RX: Cholecalciferol (Vitamin D3) [Vitamin D3] 5,000 units PO DAILY 09/06/20 RX: Apixaban [Eliquis *] 2.5 mg PO BID #60 tablet 10/04/20 RX: Budesonide [Pulmicort Flexhaler] 180 mcg IH BID #1 aer.[email or web address] 10/04/20 RX: Bumetanide [Bumex*] 2 mg PO DAILY #60 tab 10/04/20 RX: Calcitrol [Rocaltrol*] 0.5 mcg PO DAILY #60 cap 10/04/20 RX: Calcium Acetate [Phoslo*] 1,334 mg PO TIDWM #180 tab 10/04/20 RX: Docusate [Colace Cap*] 100 mg PO BID #60 cap 10/04/20 RX: Doxazosin [Cardura*] 2 mg PO BEDTIME #30 tab 10/04/20 RX: Linagliptin [Tradjenta] 5 mg PO DAILY #30 tablet 10/04/20 RX: Melatonin 5 mg PO BEDTIME #30 tablet 10/04/20 RX: Metoprolol Tartrate [Lopressor] 100 mg PO BID #60 tablet 10/04/20 RX: Thiamine HCl [Vitamin B-1*] 100 mg PO BID #60 tablet 10/04/20 RX: Zinc Sulfate [Zinc Sulfate*] 220 mg PO DAILY #30 cap 10/04/20 RX: predniSONE [Prednisone*] 20 mg PO SEECOM #21 tab 10/04/20 RX: Ascorbic Acid [Vitamin C*] 500 mg PO BID 10/07/20 RX: Insulin Glargine Human [Lantus*] 36 unit SQ DAILY 10/07/20 RX: Ascorbic Acid [Vitamin C*] 500 mg PO DAILY #30 tablet 10/12/20 RX: Nepro Shake [Nepro*] 273 ml PO TID #60 can 10/12/20 RX: predniSONE [Prednisone*] 20 mg PO DAILY #6 tab 10/12/20 - Past Medical/Surgical History Diabetic: Yes -: Diabetes mellitus type 2 -: Hypertension -: End-stage renal disease on hemodialysis -: Former tobacco use -: Anemia chronic disease -: COVID-19 pneumonia -: Right tibia sx r/t fx Psychosocial/ Personal History: Patient lives at home with his . - Family History Father -: Cancer Mother -: Diabetes - Social History Smoking Status: Former smoker Alcohol use: No CD- Drugs: No Caffeine use: Yes Place of Residence: Home Review of Systems Integumentary: Other (Right Heel Ulcer, Bleeding) Physical Examination - Physical Exam General: Alert, In no apparent distress HEENT: Atraumatic, PERRLA, EOMI, Sclerae nonicteric Neck: Supple, 2+ carotid pulse no bruit Respiratory: Clear to auscultation bilaterally, Normal air movement Cardiovascular: Regular rate/rhythm, Normal S1 S2 Gastrointestinal: Normal bowel sounds, No tenderness Musculoskeletal: No tenderness Integumentary: No rashes Neurological: Normal speech, Normal strength at 5/5 x4 extr, Normal tone, Normal affect - Studies Laboratory Data (last 24 hrs) 06/20/22 22:20: Sodium 131 L, Potassium 3.9, BUN 38 H, Creatinine 7.82 H*, Gl ucose 464 H*, Total Bilirubin 0.4, AST 15, ALT 16, Alkaline Phosphatase 155 H 06/20/22 22:20: WBC 5.70, Hgb 9.4 L, Hct 27.3 L, Plt Count 240 Assessment and Plan - Problems (Diagnosis) (1) Diabetic foot ulcer Current Visit: Yes Status: Acute Qualifiers: Diabetic foot ulcer location: heel Diabetes mellitus type: type 2 Laterality: right Non-pressure ulcer stage: with bone involvement without evidence of necrosis Qualified Code(s): E11.621 - Type 2 diabetes mellitus with foot ulcer; L97.416 - 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 without evidence of necrosis (2) Diabetes Current Visit: Yes Status: Chronic Qualifiers: Diabetes mellitus type: type 2 Diabetes mellitus adjunct faculty for medical terminology insulin use: with adjunct faculty for medical terminology use Diabetes mellitus complication status: with hyperglycemia Qualified Code(s): E11.65 - Type 2 diabetes mellitus with hyperglycemia; 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 MRI ordered for the morning to rule out osteomyelitis. General surgery has been consulted. Will have patient be NPO after midnight. Continue vancomycin and cefepime. Wound culture obtained. Nephrology consulted as patient is due for hemodialysis . Aggressive blood sugar control. A1c ordered. Monitor and replete electrolytes per protocol. Reconcile and continue home medications. Heparin for VTE prophylaxis. Full code. Discharge Plan: Home Plan to discharge in: Greater than 2 days - Advance Directives Does patient have a Living Will: No Does patient have a Durable POA for Healthcare: No - Code Status/Comfort Care Code Status Assessed: Yes Code Status: Full Code Physician Review: Patient Assessed, Agree with Above Assessment and Plan Critical Care: No Time Spent Managing Pts Care (In Minutes): 50
[2022-06-21] MEDS ORDERED: ONDANSETRON 4 MG/2 ML VIAL IV PRN (02:18)
[2022-06-21] MEDS ORDERED: VANCOMYCIN 1 GM in NA CHLORIDE 0.9% 250 ML IVPB SCH (02:18)
[2022-06-21] MEDS ORDERED: VANCOMYCIN 2 GM in NA CHLORIDE 0.9% 500 ML IVPB ONE (03:00)
[2022-06-21] MEDS ORDERED: METOPROLOL TAR 50 MG TAB PO ONE (03:00)
[2022-06-21] MEDS: CEFEPIME 1 GM in NA CHLORIDE 0.9% 100 ML IV SCH ×2 (03:15→21:39)
[2022-06-21] MEDS: INSULIN -REGULAR HUMAN 50 UNIT/0.5 ML ML SQ SCH ×5 (03:19→23:58)
[2022-06-21] MEDS ORDERED: VANCOMYCIN 1 GM in NA CHLORIDE 0.9% 250 ML IVPB ONE (04:00)
[2022-06-21] MEDS ORDERED: VANCOMYCIN 500 MG in NA CHLORIDE 0.9% 100 ML IVPB ONE (07:45)
[2022-06-21] MEDS ORDERED: MANNITOL 25% 12.5 GM/50 ML VIAL IV PRN (07:53)
[2022-06-21] MEDS ORDERED: NA CHLORIDE 0.9% 1,000 ML IV PRN (07:53)
[2022-06-21] MEDS ORDERED: ALBUMIN HUMAN 25% 50 ML IV SCH (08:00)
[2022-06-21] MEDS: SEVELAMER CARBONATE 800 MG TABLET PO SCH ×3 (08:00→17:33)
[2022-06-21] MEDS ORDERED: EPOETIN ALFA-EPBX 10,000 UNIT/ML VIAL SQ ONE ×2 (08:15→21:00)
[2022-06-21] MEDS: DRISDOL (VITAMIN D=ERGOCALCIFEROL) 50000 UNIT CAP PO SCH (08:20)
[2022-06-21] MEDS: MULTIVITAMINS,THERAPEUT 1 TAB PO SCH (08:20)
[2022-06-21] MEDS: CALCITROL 0.25 MCG CAP PO SCH (08:20)
[2022-06-21] MEDS: HEPARIN 5000 UNIT/ML 1 ML VIAL SQ SCH ×2 (08:25→21:59)
[2022-06-21] MEDS: DOCUSATE NA 100 MG CAP PO SCH ×2 (08:25→21:40)
[2022-06-21] MEDS ORDERED: VANCOMYCIN 500 MG in NA CHLORIDE 0.9% 100 ML IVPB SCH (08:30)
[2022-06-21] MEDS ORDERED: BUPIVACAINE 0.25% PF 10 ML VIAL ONE (10:21)
[2022-06-21] MEDS ORDERED: BUPIVACAINE 0.25% PF 30 ML VIAL ONE (10:21)
--- NOTE | 2022-06-21 10:38 | P.CNS ---
Date of Consult: 06/21/22 Reason for Consult: ESRD Requesting Physician: Ani Nguyen Chief Complaint: Diabetic Foot Ulcer History of Present Illness: Patient is a 46 year old male with past medical history of insulin dependent type 2 diabetes, ESRD on HD, hypertension, and chronic anemia who presented to the ED with a bleeding foot ulcer. Patient reports that he stepped on a bottle cap about 3 weeks ago and was supposed to follow up with podiatry but never did. He reports that it started bleeding a lot tonight. Xray showed "Edema and cellulitis with suspected ulceration lateral soft tissues in region of fifth metatarsal phalangeal joint. Erosive changes fifth metatarsal phalangeal joint. The findings are suspicious for osteomyelitis or septic arthritis. Correlation with magnetic resonance study needed for further characterization. No acute fracture or dislocation seen." He was started on clindamycin and vancomycin in ED. Patient is admitted for further management. 01:38 This 46 yrs old Male presents to ER via EMS with complaints of Right foot bleeding. kdr 01:38 Patient was brought to the ED by EMS after he was noted to be bleeding from his right kdr foot wound bleeding. Patient states that he had an injury to the heel after bella pping on a bottle About 2+ weeks ago. Since then the skin is steadily broken down and today started bleeding from the wound. According to EMS there was considerable blood at the scene where they picked the patient up. Bleeding has since subsided. Patient has been seen here several times for this injury and was advised to follow-up with podiatry however that has not occurred. Wound is very foul-smelling with some purulent drainage. Onset: The symptoms/episode began/occurred suddenly, 2 week(s) ago. Severity of symptoms: At their worst the symptoms were mild in the emergency department the symptoms are unchanged. The patient has not experienced similar symptoms in the past. The patient has been recently seen at the [facility] Emergency Department, a couple of weeks ago, last month. Allergies No Known Drug Allergies Allergy (Verified 11/24/19 04:29) Unknown Home medications list reviewed: Yes Home Medications: Amlodipine [Norvasc*] 10 mg PO DAILY 11/24/19 Atorvastatin Calcium [Lipitor*] 10 mg PO DAILY 11/24/19 Furosemide 40 mg PO BID 11/24/19 Aspirin [Aspirin EC 81 MG] 81 mg PO DAILY 09/06/20 Cholecalciferol (Vitamin D3) [Vitamin D3] 5,000 units PO DAILY 09/06/20 Calcitrol [Rocaltrol*] 0.75 mcg PO T,TH,S 06/21/22 Doxazosin [Cardura*] 8 mg PO BID 06/21/22 Glimepiride [Amaryl*] 4 mg PO DAILY 06/21/22 Metoprolol Tartrate [Lopressor] 50 mg PO BID 06/21/22 Olmesartan Medoxomil [Benicar] 20 mg PO DAILY 06/21/22 Olmesartan Medoxomil [Benicar] 20 mg PO DAILY 06/21/22 - Past Medical/Surgical History Diabetic: Yes -: Diabetes mellitus type 2 -: Hypertension -: ESRD on HD (Dr. Garibay) -: Former tobacco use -: Anemia chronic disease -: COVID-19 pneumonia -: Right tibia sx r/t fx -: left AV fistula -: hemosplit -: peritoneal HD -: Osteo 5th toe left foot Psychosocial/ Personal History: Patient lives at home with his . - Family History Father Medical History: Cancer Notes: mutiple myloma Mother Medical History: Diabetes - Social History Smoking Status: Unknown if ever smoked Alcohol use: No CD- Drugs: No Caffeine use: Yes Place of Residence: Home Review of Systems 10-point ROS is otherwise unremarkable General: Weakness, Malaise Cardiovascular: Edema Musculoskeletal: Foot Pain Physical Examination Temp Pulse Resp BP Pulse Ox 97 F 71 17 172/84 H 100 06/21/22 08:00 06/21/22 08:00 06/21/22 08:00 06/21/22 08:00 06/21/22 08:00 General: In no apparent distress, Oriented x3, Cooperative HEENT: Atraumatic Neck: Supple Respiratory: Clear to auscultation bilaterally Cardiovascular: Regular rate/rhythm, Edema Gastrointestinal: Soft and benign, Non-distended Musculoskeletal: No clubbing, No contractures Integumentary: No rashes, No cyanosis Neurological: Normal speech Laboratory Data (last 24 hrs) 06/20/22 22:20: Sodium 131 L, Potassium 3.9, BUN 38 H, Creatinine 7.82 H*, Glucose 464 H*, Total Bilirubin 0.4, AST 15, ALT 16, Alkaline Phosphatase 155 H 06/20/22 22:20: WBC 5.70, Hgb 9.4 L, Hct 27.3 L, Plt Count 240 Imagings Data: [facility] EXAM DESCRIPTION: MRI - Foot Right Wo Cont - 06/21/2022 11:18 am CLINICAL HISTORY: possible osteomyelitis COMPARISON: Foot Right 3 View dated 06/20/2022 TECHNIQUE: Multiplanar imaging of the right foot performed using T1 weighted, T1 fat saturation, T2 fat saturation and T2 stir sequencing. FINDINGS: Patient has soft tissue wounds in the plantar lateral aspect of the foot near the fifth MTP joint as well as a large wound in the medial calcaneal region. Calcaneus shows normal fatty marrow signal pattern. No cortical disruption or suspicious calcaneal finding. Large soft tissue wound is present along the medial and medial plantar aspect of the foot near the calcaneus. There is no abscess or drainable fluid collection identifiable. Soft tissue wound is present near the fifth MTP joint. The fifth metatarsal and the fifth proximal phalanx show normal fatty marrow characteristics with no cortical disruption. Elsewhere in the foot marrow signal pattern is normal. The fifth MTP region soft tissue wound has no abscess or drainable fluid collection. Intra-articular extension of the wound into the fifth MTP joint is not confirmed. IMPRESSION: No osteomyelitis changes are present near the site of the plantar fifth MTP region or medial calcaneal region known soft tissue wounds. MRI findings do not suggest intra-articular extension of the fifth MTP region wound into the joint. Conclusions/Impression: ESRD on HD -Acute HD ordered for today -Seen and examined on HD Hyponatremia -HD TIW HTN with CKD/ CHF -Continue Amlodipine -Start Losartan BID -Continue Metoprolol and Doxazosin Diastolic CHF, chronic -HD with UF DM II with CKD, Polyneuropathy, Foot Ulcer -RISS Anemia in CKD -Retacrit X2 CKD MBD -Continue Ergo -Continue Calcitriol -continue Renvela DM foot ulcer -Follow up with surgery -Continue abx Cased reviewed with Dr. Nguyen Thank you kindly for the consultation
[2022-06-21] MEDS: NA CHLORIDE 0.9% 500 ML ONE (11:44)
--- NOTE | 2022-06-21 11:54 | RAD REPORT ---
EXAM DESCRIPTION: MRI - Foot Right Wo Cont - 06/21/2022 11:18 am CLINICAL HISTORY: possible osteomyelitis COMPARISON: Foot Right 3 View dated 06/20/2022 TECHNIQUE: Multiplanar imaging of the right foot performed using T1 weighted, T1 fat saturation, T2 fat saturation and T2 stir sequencing. FINDINGS: Patient has soft tissue wounds in the plantar lateral aspect of the foot near the fifth MT P joint as well as a large wound in the medial calcaneal region. Calcaneus shows normal fatty marrow signal pattern. No cortical disruption or suspicious calcaneal fi nding. Large soft tissue wound is present along the medial and medial plantar aspect of the foot near the calcaneus. There is no abscess or drainable fluid collection identifiable. Soft tissue wound is present near the fifth MTP joint. The fifth metatarsal and the fifth proximal ph alanx show normal fatty marrow characteristics with no cortical disruption. Elsewhere in the foot marrow signal pattern is normal. The fifth MTP region soft tissue wound has no abscess or drainable fluid collection. Intra-articular extension of the wound into the fifth MTP join t is not confirmed. IMPRESSION: No osteomyelitis changes are present near the site of the plantar fifth MTP region or me dial calcaneal region known soft tissue wounds. MRI findings do not suggest intra-articular extension of the fifth MTP region wound into the joint.
--- NOTE | 2022-06-21 11:56 | RAD REPORT ---
EXAM DESCRIPTION: US - Extrem Venous W Compress Barrie - 06/21/2022 11:38 am CLINICAL HISTORY: peripheral vascular disease, leg pain and swelling, multiple wounds COMPARISON: None. TECHNIQUE: Real-time sonographic evaluation of the bilateral lower extremity common femoral, superfi cial femoral, popliteal and posterior tibial veins was performed. FINDINGS: Normal compressibility, flow augmentation, phasic flow and spontaneous flow are identified in the left and right lower extremity common femoral, superficial femoral, popliteal and posterior t ibial veins. No intraluminal filling defects seen. IMPRESSION: No DVT in either lower extremity.
--- NOTE | 2022-06-21 11:57 | RAD REPORT ---
EXAM DESCRIPTION: RAD - Foot Right 3 View - 06/20/2022 11:31 pm CLINICAL HISTORY: The patient is 59 years old and is Female; elevated liver enzymes TECHNIQUE: Real-time ultrasound of the right upper quadrant with image documentation. COMPARISON: No relevant prior studies available. FINDINGS: LIVER: The liver is increased in echogenicity. There is normal hepatopedal flow. GALLBLADDER: Gallbladder is distended. Gallstones are present within the gallbladder. No gallb ladder wall thickening or pericholecystic fluid is noted. COMMON BILE DUCT: Unremarkable as visualized. No stones. No dilation. PANCREAS: Unremarkable as visualized. RIGHT KIDNEY: Unremarkable. No stones. No solid mass. No hydronephrosis. IMPRESSION: 1. Cholelithiasis without findings to suggest cholecystitis. 2. Hepatic steatosis. Electronically signed by: Lisa Green MD 06/21/2022 1:35 AM MILL OPERATOR HELPER Due to temporary technical issues with the PACS/Fluency reporting system, reports are being signed by the in house radiologists without review as a courtesy to insure prompt reporting. The interpreting radiologist is fully responsible for the content of the report.
--- NOTE | 2022-06-21 12:00 | RAD REPORT ---
EXAM DESCRIPTION: US - Lower Extremity Arterial Bilat - 06/21/2022 11:38 am CLINICAL HISTORY: peripheral vascular disease COMPARISON: Lower extremity arterial study 2019 TECHNIQUE: Doppler evaluation of the bilateral lower extremity arterial tree performed. Waveforms an d velocities were obtained along the length of each lower extremity. Visual inspection of the lower e xtremity arterial tree performed. FINDINGS: Bilateral lower extremity atherosclerotic wall calcifications are present. No occlusion or focal flow restricting lesion identifiable. Triphasic waveforms are seen along the length of the left lower extremity. Right lower extremity show ed triphasic waveform in the common femoral and femoral arteries with a biphasic to triphasic pattern seen in the popliteal artery. Waveform pattern BKA more monophasic in the right posterior tibial and dorsalis pedis arteries. Common femoral and femoral velocity values and waveforms are similar right versus left. Velocity is elevated in the right popliteal artery relative to the left but no focal bella nosis is seen on visual inspection. No suspicious finding in the soft tissues. IMPRESSION: Bilateral lower extremity atherosclerotic wall calcifications are present without occlus ion or a focal flow restricting lesion identifiable. Peripheral vascular disease is more prominent below the knee in the right lower extremity.
[2022-06-21] MEDS ORDERED: ONDANSETRON 4 MG/2 ML VIAL ONE (12:03)
[2022-06-21] MEDS ORDERED: FENTANYL CITR 100 MCG/2 ML ONE (12:03)
[2022-06-21] MEDS ORDERED: MIDAZOLAM HCL 2 MG/2 ML INJ ONE (12:03)
[2022-06-21] MEDS ORDERED: LIDOCAINE 2% MPF 5 ML VIAL ONE (12:03)
[2022-06-21] MEDS ORDERED: propofoL 200 MG/20 ML VIAL IV ONE (12:03)
--- NOTE | 2022-06-21 13:00 | P.OP ---
Preoperative diagnosis: Bilateral Foot Diabetic Foot Wounds Postoperative diagnosis: Bilateral Foot Diabetic Foot Wounds Primary procedure: Debridement of Bilateral Foot Diabetic Foot Wounds Secondary procedure: Pulse Lavage of Bilateral Foot Anesthesia: GETA + Local Estimated blood loss: < 15 cc Specimen: Debridement Tissues Findings: RIGHT heel, RIGHT plantar 5th MP wound, LEFT plantar 5th MP wound Complications: None Transferred to: Recovery Room Condition: Good
[2022-06-21] MEDS ORDERED: HYDROCODONE/APAP 5/325 MG TAB PO PRN (13:28)
--- NOTE | 2022-06-21 13:49 | OP ---
Date of Procedure: 06/21/2022 Surgeon: Junior Brizuela MD, Preoperative Diagnosis: Bilateral diabetic foot wounds. Postoperative Diagnosis: Bilateral diabetic foot wounds. Procedure Performed: Debridement of bilateral diabetic foot wounds and pulse lavage of bilateral fee t. Anesthesia: General endotracheal plus local. Estimated Blood Loss: Less than 5 cc. Specimens: Debridement tissue. Findings: 1.Right medial heel diabetic foot wound at approximately 5 cm x 5 cm down to the fascia overlying th e calcaneus, but not involving the calcaneus bone. 2.Right plantar foot wound along the metatarsal just proximal to the metatarsophalangeal joint wound extending down to through the plantar fascia and up to the tendinous connections, but not involving them. 3.Left foot plantar fifth metatarsophalangeal/just proximal to metatarsophalangeal joint wound exten ding down to the plantar fascia only. 4.The sizes of the right plantar wound were approximately 1.5 x 2 cm and the left plantar wound was approximately 1.5 x 2 cm. Complications: None. Disposition: The patient was transferred to the recovery room in good condition. Procedure In Detail: After informed consent was obtained, the patient was brought to the operating r oom, prepped and draped in the usual sterile fashion after adequate anesthesia was achieved. I cultu red the area for aerobic and anaerobic speciation at this time. I then did a circumferential dissect ion around the right medial heel wound where obvious necrotic tissue was evident. This was taken eleazar n using a scalpel down to subcutaneous tissues until good viable tissue was encountered. This was ci rcumferentially dissected using combination of electrocautery and sharp dissection down through the f ascia overlying and up to the calcaneus muscle, but not involving the calcaneal bone. The area was t hen pulse lavaged. Hemostasis was achieved electrocautery. The area was then packed with sterile dr essing and I turned my attention to the plantar wound at the mid fifth metatarsal just proximal to th e metatarsophalangeal joint. I circumferentially dissected this area after appropriately anesthetizi ng the skin with a 15 blade scalpel down to subcutaneous tissues and incised as described above. I t hen dissected down using a combination of electrocautery and sharp dissection in a similar fashion at the heel and pulse lavaged the area at this point as well. Hemostasis was achieved with electrocaut trey. This wound was then packed with sterile dressing as well and Vashe-soaked gauze was packed into both wounds and a sterile dressing placed over top. I then turned my attention to the left plantar wound, which was also located just proximal to the metatarsophalangeal joint. This was circumferenti ally dissected after appropriately anesthetizing the skin using a 15 blade down to the subcutaneous t issues. Electrocautery was used to dissect down as well as a combination of sharp dissection and justine ctrocautery down to the plantar fascia, which was then circumferentially dissected free and sent off for pathologic examination. The area was then copiously irrigated once again with pulse lavage devic e. At this point, hemostasis was once again achieved with electrocautery. The wound was then packed with a similar fashion using Adaptic dry with Vashe solution into the wound and a sterile dressing p laced over top. The patient tolerated the procedure well without evidence of complication and transf erred to PACU in good condition. All counts were correct at the end of the case. MARIBEL/EVITA Voice ID: [id number] Report ID: [id number]
--- NOTE | 2022-06-21 13:49 | EKG ---
Test Date: 2022-06-20 Test Time: 22:12:59 Office Supervisor: JACINTO MEASUREMENT RESULTS: Intervals: Rate: 78 [place]: QRSD: 94 QT: 410 QTc: 467 [place]: P: [place]: QRS: -30 T: 126 INTERPRETIVE STATEMENTS: Accelerated Junctional rhythm Left axis deviation Left ventricular hypertrophy with repolarization abnormality Abnormal ECG Compared to ECG 10/07/2020 14:25:10 Accelerated junctional rhythm now present Left-axis deviation now present Early repolarization now present Sinus rhythm no longer present Electronically Signed On 06-21-22 13:49:12 MANAGER GROCERY by Hayden Duque
--- NOTE | 2022-06-21 20:56 | P.PN ---
Date of Service: 06/21/22 Subjective Patient is status post surgery. Somewhat lethargic. Status post wound debridement. Physical Examination - Physical Exam General: Alert, In no apparent distress Respiratory: Clear to auscultation bilaterally, Normal air movement Cardiovascular: Regular rate/rhythm, Normal S1 S2 Gastrointestinal: Normal bowel sounds, No tenderness Musculoskeletal: No tenderness Integumentary: Dssg: C/D/I Neurological: No focal deficits Assessment and Plan - Problems (Diagnosis) (1) Diabetic foot ulcer Current Visit: Yes Status: Acute Qualifiers: Diabetic foot ulcer location: heel Diabetes mellitus type: type 2 Laterality: right Non-pressure ulcer stage: with bone involvement without evidence of necrosis Qualified Code(s): E11.621 - Type 2 diabetes mellitus with foot ulcer; L97.416 - 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 without evidence of necrosis (2) Diabetes Current Visit: Yes Status: Chronic Qualifiers: Diabetes mellitus type: type 2 Diabetes mellitus bed bug exterminator insulin use: with bed bug exterminator use Diabetes mellitus complication status: with hyperglycemia Qualified Code(s): E11.65 - Type 2 diabetes mellitus with hyperglycemia; Z79.4 - MCC (current) use of insulin (3) ESRD (end stage renal disease) on dialysis Current Visit: Yes Status: Chronic (4) Hypertension Current Visit: Yes Status: Chronic Qualifiers: Hypertension type: primary hypertension Qualified Code(s): I10 - Essential (primary) hypertension (5) Anemia Current Visit: Yes Status: Chronic Qualifiers: Anemia type: due to chronic kidney disease Chronic kidney disease stage: on chronic dialysis Qualified Code(s): N18.6 - End stage renal disease; D63.1 - Anemia in chronic kidney disease; Z99.2 - Dependence on renal dialysis - Plan -s/p I&D -MRI ruled out osteomyelitis. -General surgery appreicated -Continue vancomycin and cefepime. Wound culture obtained. -Nephrology consulted as patient is due for hemodialysis . -Aggressive blood sugar control. A1c ordered. -Heparin for VTE prophylaxis. -Full code.
[2022-06-21] MEDS ORDERED: CALCITROL 0.25 MCG CAP PO SCH (21:00)
[2022-06-21] MEDS: METOPROLOL TAR 50 MG TAB PO SCH (21:53)
[2022-06-21] MEDS: FUROSEMIDE 40 MG TABLET PO SCH (21:54)
[2022-06-21] MEDS: DOXAZOSIN 2 MG TAB PO SCH (21:59)
[2022-06-22 05:17] LABS: Absolute Lymphocytes (CBC) 1.2 K/uL (0.7-4.9); Hematocrit 28.6 % (39.6-49.0); Lymphocytes % 23.7 % (15.3-44.8); MCV 86.3 fL (80-100); MPV 7.9 fL (7.6-11.3); RBC Red Blood Cell Count 3.32 M/uL (4.33-5.43)
[2022-06-22 05:42] LABS: Magnesium 2.1 mg/dL (1.6-2.4); Phosphorus 3.9 mg/dL (2.5-4.9); Potassium 4.2 mmol/L (3.5-5.1); Thyroid Stimulating Hormone 1.03 uIU/mL (0.358-3.740)
[2022-06-22] MEDS: INSULIN -REGULAR HUMAN 50 UNIT/0.5 ML ML SQ SCH ×4 (06:10→21:59)
[2022-06-22] MEDS: DRISDOL (VITAMIN D=ERGOCALCIFEROL) 50000 UNIT CAP PO SCH (08:51)
[2022-06-22] MEDS: AMLODIPINE 10 MG TAB PO SCH (08:52)
[2022-06-22] MEDS: FUROSEMIDE 40 MG TABLET PO SCH ×2 (08:52→20:40)
[2022-06-22] MEDS: MULTIVITAMINS,THERAPEUT 1 TAB PO SCH (08:52)
[2022-06-22] MEDS: LOSARTAN POTASSIUM 50 MG TABLET PO SCH ×2 (08:52→20:41)
[2022-06-22] MEDS: DOXAZOSIN 2 MG TAB PO SCH ×2 (08:52→20:41)
[2022-06-22] MEDS: DOCUSATE NA 100 MG CAP PO SCH ×2 (08:53→20:41)
[2022-06-22] MEDS: VITAMIN D 5,000 UNIT CAP PO SCH (08:53)
[2022-06-22] MEDS: SEVELAMER CARBONATE 800 MG TABLET PO SCH ×3 (08:53→17:35)
[2022-06-22] MEDS: ATORVASTATIN 10 MG TAB PO SCH (08:53)
[2022-06-22] MEDS: METOPROLOL TAR 50 MG TAB PO SCH ×2 (08:53→20:41)
[2022-06-22] MEDS: ASPIRIN EC 81 MG TAB PO SCH (08:53)
[2022-06-22] MEDS: CALCITROL 0.25 MCG CAP PO SCH (08:53)
[2022-06-22] MEDS: HEPARIN 5000 UNIT/ML 1 ML VIAL SQ SCH ×2 (08:54→20:41)
[2022-06-22] MEDS ORDERED: VALSARTAN 80 MG TAB PO SCH (09:00)
--- NOTE | 2022-06-22 09:12 | P.PN ---
Nephrology note: (S) Pt seen resting in bed, both feet wrapped, BP elevated this AM, has not received his AM meds yet. No acute complaints (O) Vitals reviewed in the EMR General: In no apparent distress, Oriented x3, Cooperative HEENT: Atraumatic Neck: Supple Respiratory: Clear to auscultation bilaterally mostly Cardiovascular: Regular rate/rhythm, mild peripheral edema Gastrointestinal: Soft and benign, Non-distended Musculoskeletal: Both DFU wrapped Integumentary: No rashes, No cyanosis Neurological: Normal speech, awake, alert, non focal Laboratory Data (last 24 hrs) Reviewed in the EMR Conclusions/Impression: ESRD on HD -iHD TTS, dialyzed yesterday, metab profile ok HTN with CKD/ CHF -Continue home meds, BP remains accelerated, f/u after AM meds Diastolic CHF, chronic -Cont to maintain euvolemia through dialysis DM foot ulcer with no reported osteo on MRI -follow up cultures, if IV Abx (Vanc +/- gram neg coverage through Gentamicin) are required at the unit, that can be arranged. Gary Carrasco MD
--- NOTE | 2022-06-22 12:49 | CON ---
History Of Present Illness: Patient is a 46-year-old male, I was consulted for diabetic foot ulcer. He had debridement done earlier today. Patient is currently being treated with the cefepime and van comycin. As per the patient, his wound started after he stepped on a cork bottle cap. He had been s een at the emergency room by metal mixer but his wound was not improving. Patient decided to come to the hospital. He has also significant past medical history of end-stage renal disease, hypertension, diabetes mellitus, diabetic neuropathy, hypercholesterolemia, anemia of chronic disease, COVID-19 pn eumonia, right tibia fracture and repair, quit tobacco use about 4 years ago, and he had infection on his left foot with osteomyelitis and MRSA infection. Past Medical History: As per HPI. Social History: Nonsmoker. Nondrinker. Family History: Noncontributory. Medications: Vancomycin, cefepime. See MAR for other medications. Allergies: NO KNOWN DRUG ALLERGIES. Review of Systems: A 10-point review was performed. Physical Examination: General: This is a 46-year-old male, sitting in ICU bed, not in any acute cardiopulmonary distress. Vital Signs: Temperature 97.5, pulse 70, respirations 18, blood pressure 175/81. HEENT: Unremarkable. Neck: Supple. Lungs: Clear to auscultation. Heart: S1, S2. Regular. Abdomen: Soft, nontender. Bowel sounds present. Extremity: Right leg 1+ edema. Wounds noted. Both feet has callus formation under fifth metatarsal , and the left heel ulcer also noted on the medial aspect. Laboratory Data: WBC 5, hemoglobin 9.6, platelets 202. Chemistry shows BUN of 26, creatinine of 6.1 . Albumin level is 3.2. MRI of the foot done yesterday shows no osteomyelitis changes present near the site of the plantar fifth metatarsal or medial calcaneus region. Assessment And Plan: Diabetic foot ulcer in a 46-year-old male with right heel area and bilateral pl gopal calluses due to diabetic neuropathy. Patient has significant past medical history of end-stage renal disease for 4 years, poor sugar control. Continue IV antibiotic for at least 2 to 4 weeks. S urgical wound management by surgical team. Recommend to apply Betadine to the callus area and offloa ding. Also recommend to see [facility] for preventing further callus formation and ulceratio n to the feet. Continue supportive care and wound care. Monitor for signs of infection with WBC and fever trends. NF/MODL Voice ID: [id number] Report ID: [id number]
[2022-06-22] MEDS ORDERED: VANCOMYCIN 1 GM in NA CHLORIDE 0.9% 250 ML IVPB SCH (18:00)
[2022-06-22] MEDS ORDERED: VANCOMYCIN 500 MG in NA CHLORIDE 0.9% 100 ML IVPB SCH (18:00)
[2022-06-22] MEDS: CEFEPIME 1 GM in NA CHLORIDE 0.9% 100 ML IV SCH (20:40)
[2022-06-23 04:53] LABS: Absolute Lymphocytes (CBC) 1.7 K/uL (0.7-4.9); Hematocrit 27.6 % (39.6-49.0); Lymphocytes % 27.4 % (15.3-44.8); MCV 86.9 fL (80-100); MPV 7.9 fL (7.6-11.3); RBC Red Blood Cell Count 3.17 M/uL (4.33-5.43)
[2022-06-23 05:11] LABS: Potassium 4.6 mmol/L (3.5-5.1)
[2022-06-23] MEDS: METOPROLOL TAR 50 MG TAB PO SCH ×2 (08:27→20:16)
[2022-06-23] MEDS: SEVELAMER CARBONATE 800 MG TABLET PO SCH ×3 (08:27→17:28)
[2022-06-23] MEDS: MULTIVITAMINS,THERAPEUT 1 TAB PO SCH (08:27)
[2022-06-23] MEDS: CALCITROL 0.25 MCG CAP PO SCH (08:27)
[2022-06-23] MEDS: ATORVASTATIN 10 MG TAB PO SCH (08:28)
[2022-06-23] MEDS: LOSARTAN POTASSIUM 50 MG TABLET PO SCH ×2 (08:28→20:17)
[2022-06-23] MEDS: DOXAZOSIN 2 MG TAB PO SCH ×2 (08:28→20:16)
[2022-06-23] MEDS: AMLODIPINE 10 MG TAB PO SCH (08:28)
[2022-06-23] MEDS: FUROSEMIDE 40 MG TABLET PO SCH ×2 (08:28→20:16)
[2022-06-23] MEDS: HEPARIN 5000 UNIT/ML 1 ML VIAL SQ SCH ×2 (08:28→20:16)
[2022-06-23] MEDS: ASPIRIN EC 81 MG TAB PO SCH (08:29)
[2022-06-23] MEDS: DOCUSATE NA 100 MG CAP PO SCH ×2 (08:29→20:16)
[2022-06-23] MEDS: INSULIN -REGULAR HUMAN 50 UNIT/0.5 ML ML SQ SCH ×4 (08:29→21:00)
[2022-06-23] MEDS: VITAMIN D 5,000 UNIT CAP PO SCH (08:30)
[2022-06-23] MEDS: HYDRALAZINE HCL 20 MG/ML VIAL IV PRN ×2 (11:12→18:27)
--- NOTE | 2022-06-23 15:33 | PN ---
Subjective: Patient is seen in the dialysis suite. He is currently housed in the ICU due to bed ove rflow, but is considered a floor patient. He is alert, awake and comfortable. He is currently await ing the results of his cultures from the foot, getting dialysis. He is an end-stage renal disease pa tient, gets dialysis on Saturday, , and Saturday. Dialyzing today for his regular dialysis tr eatment. Patient is seen at dialysis suite. Discussed orders with the patient and with the dialysis nurse. Plan is to take about 3-3.5 L ultrafiltration. Objective: Vital Signs: Blood pressure is currently stable, but should improve further with ultrafi ltration. O2 sats are good. Lungs: Clear to auscultation. Extremities: Reveal trace edema. Feet are cleanly dressed. Assessment And Plan: Patient is afebrile and currently comfortable, but has been quite weak and may need some rehabilitation post discharge. Patient will discuss that with primary team. While in the hospital, we will continue to dialyze with renal support for Saturday, , Saturday. Patient un derstands and agreeable. All questions answered. Discussed with the dialysis nurse. /EVITA Voice ID: [id number] Report ID: [id number]
[2022-06-23] MEDS: CEFEPIME 1 GM in NA CHLORIDE 0.9% 100 ML IV SCH (20:15)
[2022-06-24 05:24] LABS: Absolute Lymphocytes (CBC) 1.2 K/uL (0.7-4.9); Hematocrit 29.8 % (39.6-49.0); Lymphocytes % 24.4 % (15.3-44.8); MCV 86.7 fL (80-100); MPV 7.9 fL (7.6-11.3); RBC Red Blood Cell Count 3.44 M/uL (4.33-5.43)
[2022-06-24 06:00] LABS: Potassium 4.1 mmol/L (3.5-5.1)
[2022-06-24 06:02] VITALS: BMI 32.7
[2022-06-24] MEDS: DOCUSATE NA 100 MG CAP PO SCH ×2 (09:00→19:41)
[2022-06-24] MEDS: INSULIN -REGULAR HUMAN 50 UNIT/0.5 ML ML SQ SCH ×4 (09:37→19:54)
[2022-06-24] MEDS: CALCITROL 0.25 MCG CAP PO SCH (09:38)
[2022-06-24] MEDS: METOPROLOL TAR 50 MG TAB PO SCH ×2 (09:39→19:41)
[2022-06-24] MEDS: ATORVASTATIN 10 MG TAB PO SCH (09:39)
[2022-06-24] MEDS: SEVELAMER CARBONATE 800 MG TABLET PO SCH ×3 (09:39→16:30)
[2022-06-24] MEDS: ASPIRIN EC 81 MG TAB PO SCH (09:39)
[2022-06-24] MEDS: DOXAZOSIN 2 MG TAB PO SCH ×2 (09:39→19:42)
[2022-06-24] MEDS: AMLODIPINE 10 MG TAB PO SCH (09:40)
[2022-06-24] MEDS: LOSARTAN POTASSIUM 50 MG TABLET PO SCH ×2 (09:40→19:41)
[2022-06-24] MEDS: VITAMIN D 5,000 UNIT CAP PO SCH (09:40)
[2022-06-24] MEDS: FUROSEMIDE 40 MG TABLET PO SCH ×2 (09:40→19:41)
[2022-06-24] MEDS: HEPARIN 5000 UNIT/ML 1 ML VIAL SQ SCH ×2 (09:42→19:42)
[2022-06-24] MEDS: MULTIVITAMINS,THERAPEUT 1 TAB PO SCH (09:42)
[2022-06-24] MEDS: CEFEPIME 1 GM in NA CHLORIDE 0.9% 100 ML IV SCH (19:40)
--- NOTE | 2022-06-24 21:19 | P.PN ---
Date of Service: 06/22/22 Subjective Patient more awake and alert. Clinically patient is doing better. Will arrange for home health. Awaiting cultures. Physical Examination - Physical Exam General: Alert, In no apparent distress Respiratory: Clear to auscultation bilaterally Gastrointestinal: Normal bowel sounds, No tenderness Musculoskeletal: Erythema, No tenderness; Integumentary: Dssg: C/D/I-right foot with 2 wounds; left foot with one wound Neurological: No focal deficits Assessment and Plan - Problems (Diagnosis) (1) Diabetic foot ulcer s/p I&D x 2 right foot and 1 on left foot Current Visit: Yes Status: Acute Qualifiers: Diabetic foot ulcer location: heel Diabetes mellitus type: type 2 Laterality: right Non-pressure ulcer stage: with bone involvement without evidence of necrosis Qualified Code(s): E11.621 - Type 2 diabetes mellitus with foot ulcer; L97.416 - 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 without evidence of necrosis (2) Diabetes Current Visit: Yes Status: Chronic Qualifiers: Diabetes mellitus type: type 2 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 insulin use: with group home use Diabetes mellitus complication status: with hyperglycemia Qualified Code(s): E11.65 - Type 2 diabetes mellitus with hyperglycemia; Z79.4 - [facility] (current) use of insulin (3) ESRD (end stage renal disease) on dialysis Current Visit: Yes Status: Chronic (4) Hypertension Current Visit: Yes Status: Chronic Qualifiers: Hypertension type: primary hypertension Qualified Code(s): I10 - Essential (primary) hypertension (5) Anemia Current Visit: Yes Status: Chronic Qualifiers: Anemia type: due to chronic kidney disease Chronic kidney disease stage: on chronic dialysis Qualified Code(s): N18.6 - End stage renal disease; D63.1 - Anemia in chronic kidney disease; Z99.2 - Dependence on renal dialysis - Plan -s/p I&D (POD #2) -MRI ruled out osteomyelitis. Treat with IV abx pending culture results -General surgery asst appreciated -Continue vancomycin and cefepime. Wound culture obtained. results pending -HD per Nephrology -Aggressive blood sugar control; A1c is 8.6. -Heparin for VTE prophylaxis. -Full code.
--- NOTE | 2022-06-24 21:24 | P.PN ---
Date of Service: 06/23/22 Subjective Spoke with patient, and he is wanting to go to a group home facility or [facility]. We will discuss with case management and see what his insurance will cover. Continue with wound care in the hospital. Continue with IV antibiotics. Cultures were positive for Morganella and Streptococcus species. Will continue with IV antibiotics and may change attendant to oral Levaquin. Physical Examination - Physical Exam General: Alert, In no apparent distress Respiratory: Clear to auscultation bilaterally Gastrointestinal: Normal bowel sounds, No tenderness Musculoskeletal: Erythema, No tenderness; Integumentary: Dssg: C/D/I-right foot with 2 wounds; left foot with one wound Neurological: No focal deficits Assessment and Plan - Problems (Diagnosis) (1) Diabetic foot ulcer s/p I&D x 2 right foot and 1 on left foot Current Visit: Yes Status: Acute Qualifiers: Diabetic foot ulcer location: heel Diabetes mellitus type: type 2 Laterality: right Non-pressure ulcer stage: with bone involvement without evidence of necrosis Qualified Code(s): E11.621 - Type 2 diabetes mellitus with foot ulcer; L97.416 - 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 without evidence of necrosis (2) Diabetes Current Visit: Yes Status: Chronic Qualifiers: Diabetes mellitus type: type 2 Diabetes mellitus exterminator insulin use: with detention use Diabetes mellitus complication status: with hyperglycemia Qualified Code(s): E11.65 - Type 2 diabetes mellitus with hyperglycemia; Z79.4 - adjunct faculty for medical terminology (current) use of insulin (3) ESRD (end stage renal disease) on dialysis Current Visit: Yes Status: Chronic (4) Hypertension Current Visit: Yes Status: Chronic Qualifiers: Hypertension type: primary hypertension Qualified Code(s): I10 - Essential (primary) hypertension (5) Anemia Current Visit: Yes Status: Chronic Qualifiers: Anemia type: due to chronic kidney disease Chronic kidney disease stage: on chronic dialysis Qualified Code(s): N18.6 - End stage renal disease; D63.1 - Anemia in chronic kidney disease; Z99.2 - Dependence on renal dialysis - Plan -s/p I&D (POD #2) -MRI ruled out osteomyelitis. Treating with IV abx; may chnage to oral abx therapy -General surgery asst appreciated -Continue vancomycin and cefepime. Cx positive for Morganella and Strep sp. -HD per Nephrology -Cont. blood sugar control; A1c is 8.6. -Heparin for VTE prophylaxis. -Full code.
--- NOTE | 2022-06-24 21:29 | P.PN ---
Date of Service: 06/24/22 Subjective No new changes. Currently doing well. Discharge planning in place for transfer to detention once accepted. 06/23 Spoke with patient, and he is wanting to go to a detention facility or [facility] bed. We will discuss with case management and see what his insurance will cover. Continue with wound care in the hospital. Continue with IV antibiotics. Cultures were positive for Morganella and Streptococcus species. Will continue with IV antibiotics and may change control manager to oral Levaquin. Physical Examination - Physical Exam General: Alert, In no apparent distress Respiratory: Clear to auscultation bilaterally Gastrointestinal: Normal bowel sounds, No tenderness Musculoskeletal: Erythema, No tenderness; Integumentary: Dssg: C/D/I-right foot with 2 wounds; left foot with one wound Neurological: No focal deficits Assessment and Plan - Problems (Diagnosis) (1) Diabetic foot ulcer s/p I&D x 2 right foot and 1 on left foot Current Visit: Yes Status: Acute Qualifiers: Diabetic foot ulcer location: heel Diabetes mellitus type: type 2 Laterality: right Non-pressure ulcer stage: with bone involvement without evidence of necrosis Qualified Code(s): E11.621 - Type 2 diabetes mellitus with foot ulcer; L97.416 - 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 without evidence of necrosis (2) Diabetes Current Visit: Yes Status: Chronic Qualifiers: Diabetes mellitus type: type 2 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: with [facility] use Diabetes mellitus complication status: with hyperglycemia Qualified Code(s): E11.65 - Type 2 diabetes mellitus with hyperglycemia; Z79.4 - exterminator (current) use of insulin (3) ESRD (end stage renal disease) on dialysis Current Visit: Yes Status: Chronic (4) Hypertension Current Visit: Yes Status: Chronic Qualifiers: Hypertension type: primary hypertension Qualified Code(s): I10 - Essential (primary) hypertension (5) Anemia Current Visit: Yes Status: Chronic Qualifiers: Anemia type: due to chronic kidney disease Chronic kidney disease stage: on chronic dialysis Qualified Code(s): N18.6 - End stage renal disease; D63.1 - Anemia in chronic kidney disease; Z99.2 - Dependence on renal dialysis - Plan -s/p I&D (POD #3) -MRI ruled out osteomyelitis. Treating with IV abx; may change to oral abx therapy prior to DC home -General surgery asst appreciated -Continue cefepime. Cx positive for Morganella and Strep sp. -HD per Nephrology -Cont. blood sugar control; A1c is 8.6. -Heparin for VTE prophylaxis. -Full code.
[2022-06-25] MEDS: HYDRALAZINE HCL 20 MG/ML VIAL IV PRN (03:58)
[2022-06-25 05:26] VITALS: O2SAT 97
[2022-06-25 06:17] LABS: Absolute Lymphocytes (CBC) 1.6 K/uL (0.7-4.9); Hematocrit 27.5 % (39.6-49.0); Lymphocytes % 29.8 % (15.3-44.8); MPV 7.9 fL (7.6-11.3); RBC Red Blood Cell Count 3.16 M/uL (4.33-5.43)
[2022-06-25 06:51] LABS: Magnesium 2.3 mg/dL (1.6-2.4); Potassium 4.5 mmol/L (3.5-5.1)
[2022-06-25] MEDS: INSULIN -REGULAR HUMAN 50 UNIT/0.5 ML ML SQ SCH ×3 (07:30→16:30)
[2022-06-25] MEDS: METOPROLOL TAR 50 MG TAB PO SCH (09:00)
[2022-06-25] MEDS: FUROSEMIDE 40 MG TABLET PO SCH (09:00)
[2022-06-25] MEDS: VITAMIN D 5,000 UNIT CAP PO SCH (09:00)
[2022-06-25] MEDS: ASPIRIN EC 81 MG TAB PO SCH (09:00)
[2022-06-25] MEDS: LOSARTAN POTASSIUM 50 MG TABLET PO SCH (09:00)
[2022-06-25] MEDS: CALCITROL 0.25 MCG CAP PO SCH (09:00)
[2022-06-25] MEDS: AMLODIPINE 10 MG TAB PO SCH (09:00)
[2022-06-25] MEDS: MULTIVITAMINS,THERAPEUT 1 TAB PO SCH (09:00)
[2022-06-25] MEDS: DOXAZOSIN 2 MG TAB PO SCH (09:00)
[2022-06-25] MEDS: DOCUSATE NA 100 MG CAP PO SCH (09:00)
[2022-06-25] MEDS: SEVELAMER CARBONATE 800 MG TABLET PO SCH ×3 (09:01→17:00)
[2022-06-25] MEDS: HEPARIN 5000 UNIT/ML 1 ML VIAL SQ SCH (09:01)
[2022-06-25] MEDS: ATORVASTATIN 10 MG TAB PO SCH (09:01)
[2022-06-25] MEDS ORDERED: VANCOMYCIN 2 GM in NA CHLORIDE 0.9% 500 ML IVPB ONE (12:00)
[2022-06-25 13:31] LABS: SARS-COV-2 RT PCR NEGATIVE (NEGATIVE)
--- NOTE | 2022-06-25 14:45 | P.DS ---
Admission Date: 06/21/22 Discharge Date: 06/25/22 Disposition: TRANSFER TO [facility] Discharge Condition: GOOD Reason for Admission: Diabetic Foot Ulcer Consultations: 1. General Surgery 2. Infectious Diseases 3. Nephrology Procedures: - 06/21/2022: Right Heel, Right Plantar 5th MP Wound, Left Plantar 5th MP Wound Debridement Hospital Course: DIAGNOSES: # Infected Diabetic Foot Wounds with Morganella Morganii and Group B Streptococcus Agalactiae # End-Stage Renal Disease on [facility] iHD # Type II Diabetes Mellitus # Hypertension # Peripheral Vascular Disease # Cholelithiasis # Hepatic Steatosis HOSPITAL COURSE: Mr. Nikita Bartlett is a pleasant 46 year old male with a past medical history significant for end-stage renal disease on [facility] iHD, type II diabetes mellitus, hypertension, and peripheral arterial disease who was admitted to the [facility] on 06/21/2022 for bilateral infected foot ulcers. He was admitted to the Medicine service. MRI foot revealed, "no osteomyelitis changes are present near the site of the plantar fifth MTP region or medial calcaneal region known soft tissue wounds. MRI findings do not suggest intra- articular extension of the fifth MTP region wound into the joint." General Surgery was consulted and he was evaluated by Dr. Brizuela. He underwent debridement of his foot wounds and did well. The wounds would return positive for Morganella Morganii and Group B Streptococcus Agalactiae. Infectious Diseases has been consulted and he was evaluated by Dr. Mcleod. Dr. Mcleod has cleared him for discharge with 14 days total of vancomycin (14 days remaining) + cefepime (9 days remaining). With the assistance of case management, he was accepted to [facility] for further management. On 06/25/2022, he was seen on morning rounds and deemed medically stable for discharge. He was given the opportunity to ask questions and reported no further questions. Furthermore, all questions were answered to the best of my ability. Today, I personally spent 25 minutes on his case, of which greater than 50% of the time was spent in patient education, counseling, and coordination of care as described above. Vital Signs/Physical Exam: Temp Pulse Resp BP Pulse Ox 97.8 F 65 18 157/79 H 99 06/25/22 11:58 06/25/22 11:58 06/25/22 11:58 06/25/22 11:58 06/25/22 11:58 General: Alert, In no apparent distress, Oriented x3 HEENT: Atraumatic, Mucous membr. moist/pink, EOMI, Sclerae nonicteric Neck: JVD not distended Respiratory: Clear to auscultation bilaterally, Normal air movement Cardiovascular: No edema, Regular rate/rhythm, Normal S1 S2, No gallops, No rubs, No murmurs Gastrointestinal: Normal bowel sounds, Soft and benign, Non-distended, No tenderness, No rebound, No guarding Musculoskeletal: No clubbing Integumentary: Other (bilateral feet covered in clean, dry dressing with FRANCI bandages) Neurological: Normal speech, Cranial nerves 3-12 intact, Normal affect Laboratory Data at Discharge: WBC 5.50 K/uL (4.3-10.9) 06/25/22 05:51 Hgb 9.4 g/dL (13.6-17.9) L 06/25/22 05:51 Hct 27.5 % (39.6-49.0) L 06/25/22 05:51 Plt Count 205 K/uL (152-406) 06/25/22 05:51 Sodium 135 mmol/L (136-145) L 06/25/22 05:51 Potassium 4.5 mmol/L (3.5-5.1) 06/25/22 05:51 BUN 47 mg/dL (7-18) H 06/25/22 05:51 Creatinine 8.78 mg/dL (0.70-1.30) H* 06/25/22 05:51 Glucose 217 mg/dL (74-106) H 06/25/22 05:51 Phosphorus 3.9 mg/dL (2.5-4.9) 06/22/22 05:06 Magnesium 2.3 mg/dL (1.6-2.4) 06/25/22 05:51 Total Bilirubin 0.4 mg/dL (0.2-1.0) 06/20/22 22:20 AST 15 U/L (15-37) 06/20/22 22:20 ALT 16 U/L (16-61) 06/20/22 22:20 Alkaline Phosphatase 155 U/L (45-117) H 06/20/22 22:20 Triglycerides 163 mg/dL (<150) H 06/22/22 05:06 Cholesterol 149 mg/dL (<200) 06/22/22 05:06 HDL Cholesterol 29 mg/dL (40-60) L 06/22/22 05:06 Cholesterol/HDL Ratio 5.14 06/22/22 05:06 Home Medications: Amlodipine [Norvasc*] 10 mg PO DAILY 11/24/19 Atorvastatin Calcium [Lipitor*] 10 mg PO DAILY 11/24/19 Furosemide 40 mg PO BID 11/24/19 Aspirin [Aspirin EC 81 MG] 81 mg PO DAILY 09/06/20 Cholecalciferol (Vitamin D3) [Vitamin D3] 5,000 units PO DAILY 09/06/20 Calcitrol [Rocaltrol*] 0.75 mcg PO ,,S 06/21/22 Doxazosin [Cardura*] 8 mg PO BID 06/21/22 Glimepiride [Amaryl*] 4 mg PO DAILY 06/21/22 Metoprolol Tartrate [Lopressor] 50 mg PO BID 06/21/22 Olmesartan Medoxomil [Benicar] 20 mg PO DAILY 06/21/22 Cefepime [Maxipime] 1 gm IV DAILY 9 Days #1 vial 06/25/22 Vancomycin 1 gm IV AFTER EACH DIALYSIS 14 Days #1 vial 06/25/22 New Medications: Cefepime [Maxipime] 1 gm IV DAILY 9 Days #1 vial Vancomycin 1 gm IV AFTER EACH DIALYSIS 14 Days #1 vial Diet: AHA Activity: Fall precautions Time spent managing pt's care (in minutes): 25
[2022-06-25 15:39] VITALS: BP 154/70; TEMP 97.9
--- NOTE | 2022-06-25 15:52 | PN ---
Subjective: The patient lying in bed. No new acute event overnight or over weekend. Objective: Vital Signs: Temperature 98, pulse 69, respiration 18, blood pressure 153/75. Lungs: Basal crackles. Heart: S1, S2. Regular. Abdomen: Soft, nontender. Bowel sounds present. Extremity: No edema. Laboratory Data: Reviewed. Assessment And Plan: Diabetic foot ulcer with osteo. Continue IV antibiotic with dialysis, cefepime and vancomycin for 6 weeks. Continue supportive care and wound care. Continue Medihoney with algin ate. Keep legs elevated when possible. Continue to monitor and manage diabetes. Follow up with [facility] and kidney specialist. We will follow the patient as needed. NF/MODL Voice ID: [id number] Report ID: [id number]
--- NOTE | 2022-06-25 19:17 | P.PN ---
Date of Service: 06/25/22 Vital Signs Temp Pulse Resp BP Pulse Ox 97.9 F 68 16 154/70 H 98 06/25/22 15:00 06/25/22 15:00 06/25/22 15:00 06/25/22 15:00 06/25/22 15:00 Microbiology Results 06/20/22 22:40 Wound - Right Foot Gram Stain - Final 06/20/22 22:40 Wound - Right Foot Culture & Sensitivity - Final Streptococcus Agalactiae Grp B Morganella Morganii Assessment/ Plan: Nephrology No dyspnea No chest pain Feeling better No acute events overnight Vitals, medications, blood work and imaging reviewed in the chart. General: In no apparent distress, Oriented x3, Cooperative HEENT: Atraumatic Neck: Supple Respiratory: Clear to auscultation bilaterally Cardiovascular: Regular rate/rhythm, Edema Gastrointestinal: Soft and benign, Non-distended Musculoskeletal: No clubbing, No contractures Integumentary: No rashes, No cyanosis Neurological: Normal speech Laboratory Data (last 24 hrs) 06/20/22 22:20: Sodium 131 L, Potassium 3.9, BUN 38 H, Creatinine 7.82 H*, Glucose 464 H*, Total Bilirubin 0.4, AST 15, ALT 16, Alkaline Phosphatase 155 H 06/20/22 22:20: WBC 5.70, Hgb 9.4 L, Hct 27.3 L, Plt Count 240 Imagings Data: [facility] EXAM DESCRIPTION: MRI - Foot Right Wo Cont - 06/21/2022 11:18 am CLINICAL HISTORY: possible osteomyelitis COMPARISON: Foot Right 3 View dated 06/20/2022 TECHNIQUE: Multiplanar imaging of the right foot performed using T1 weighted, T1 fat saturation, T2 fat saturation and T2 stir sequencing. FINDINGS: Patient has soft tissue wounds in the plantar lateral aspect of the foot near the fifth MTP joint as well as a large wound in the medial calcaneal region. Calcaneus shows normal fatty marrow signal pattern. No cortical disruption or suspicious calcaneal finding. Large soft tissue wound is present along the medial and medial plantar aspect of the foot near the calcaneus. There is no abscess or drainable fluid collection identifiable. Soft tissue wound is present near the fifth MTP joint. The fifth metatarsal and the fifth proximal phalanx show normal fatty marrow characteristics with no cortical disruption. Elsewhere in the foot marrow signal pattern is normal. The fifth MTP region soft tissue wound has no abscess or drainable fluid collection. Intra-articular extension of the wound into the fifth MTP joint is not confirmed. IMPRESSION: No osteomyelitis changes are present near the site of the plantar fifth MTP region or medial calcaneal region known soft tissue wounds. MRI findings do not suggest intra-articular extension of the fifth MTP region wound into the joint. Conclusions/Impression: ESRD on HD TTS -HD TIW Hyponatremia -HD TIW HTN with CKD/ CHF -Continue Amlodipine -Continue Losartan BID -Continue Metoprolol and Doxazosin Diastolic CHF, chronic -HD with UF -Low sodium diet DM II with CKD, Polyneuropathy, Angiopathy -RISS Anemia in CKD -Retacrit prn CKD MBD -Continue Ergo -Continue Calcitriol -continue Renvela DM foot ulcer -Follow up with surgery -Continue abx
[2022-06-26] MEDS ORDERED: VANCOMYCIN 1 GM in NA CHLORIDE 0.9% 250 ML IVPB SCH (17:00)
--- NOTE | 2022-06-30 13:30 | CON ---
Date of Consultation: 06/21/2022 Brief History Of Present Illness: The patient is a 46-year-old male with past medical history of maribell betes, hypertension, end-stage renal disease on hemodialysis, chronic anemia who presents to the ER w ith a bleeding foot ulcer. The patient reports he stepped on a bottle cap about 3 weeks prior and wa s supposed to follow up with Podiatry, but never did. He had significant bleeding and drainage, whic h occurred and got progressively worse, leading to necrosis of 2 areas of his foot. 1.On the right medial heel. 2.He had 2 plantar wounds along the fifth digits 1 on the right foot, 1 on the left foot. They got significantly worse. He did not have pain but he noted drainage from this area and as such he was co ncerned about infection of this area and wanted ongoing treatment. Past Medical History: Significant for diabetes, hypertension, end-stage renal disease on hemodialysi s, anemia. He has had COVID pneumonia in the past. Past Surgical History: He has had right tibia surgery in fixation. He has had a debridement of his left foot before in the past and fistula placement for hemodialysis. Allergies: NO KNOWN DRUG ALLERGIES. Home Medications: Include Norvasc, Lipitor, Lasix, aspirin, vitamin D3, Eliquis, Pulmicort, Bumex, c alcitriol, PhosLo, Colace, Cardura, Tradjenta, melatonin, metoprolol, thiamine, zinc, prednisone, asc orbic acid, insulin/Lantus, ascorbic acid, Nepro Shake and prednisone. Family History: Significant for cancer in his father. Mother had diabetes. He does have a positive significant 20+ pack year tobacco history, but is currently smoke-free he states. He denies alcohol or recreational drug use. Review of Systems: Ten-point review of systems other than HPI, denies. Physical Examination: Vital Signs: At the time of my examination, his BMI was 32.7. His vital signs, blood pressure is 14 9/61, respiratory rate is 16, pulse is 70, temperature 97.6, SpO2 100% on room air. General: He is awake, alert, and oriented. Psychiatric: Appropriate and conversive. HEENT: He is normocephalic. Sclerae icteric. Mucous membranes are moist. Oropharynx clear. Neck: Supple without JVD. Chest: Normal expansion and excursion. Pulmonary: Clear to auscultation bilaterally. Extremities: Focused examination of lower extremities, he has 3 wounds of his bilateral feet. He rivera s 2 approximately 2.5 to 3 cm areas of eschar with drainage on the right and left metatarsophalangeal region of the fifth digit bilaterally. He has a right heel medial ulcer which is significant and la rge approximately 6 to 7 cm in size with necrosis. Laboratory Data: He had a laboratory exam which revealed a white blood cell count of 5.7, hemoglobin 9.4, hematocrit of 27.3, platelet count was 240, neutrophils 64%. His sodium 131, potassium 3.9, ch loride 97, carbon dioxide is 28, BUN 38, creatinine 7.8, glucose is 464. Hemoglobin A1c came back as 8.6 later. His AST 15, ALT 16, alkaline phosphatase is 155. He had a foot MRI, which was officially read as no osteomyelitis changes are present near the site of the fifth plantar MTP region or medial calcaneal region noticed. Known soft tissue wounds. MRI fin dings do not suggest intra-articular extension of the fifth MTP joint region into the joint. Calcane us shows normal fatty marrow signal pattern. No cortical disruption. Large soft tissue wound presen t along the medial and medial plantar aspect of the foot near the calcaneus. No drainable fluid leonie ection was identified. He had extremity venous study on 06/21 as well, officially read as no DVT in either lower extremity. Doppler ultrasound study also from 06/21 officially read as bilateral lower extremity atherosclerotic wall calcifications present without occlusion or focal flow restricting les ion identified for vascular disease and more prominent below the knee on the right lower extremity. Assessment And Plan: This is a 46-year-old male with a significant past medical history and medical comorbidities including diabetes, hypertension, end-stage renal disease, who presents with multiple w ounds of the foot as described. 1.I have explained the risks, benefits, and alternatives of debridement of the heel and bilateral MT P calcaneal wounds including but not limited to bleeding, infection, damage to surround tissue, need for further operation and procedures, possible amputation, ongoing wound care as necessary. I will a lso ensure that patient has followup with an endovascular specialist to ensure flow was optimized to bilateral lower extremities. 2.Continue medical management for his medical comorbidities to optimize his outcome. 3.We will continue his wound care as an outpatient with decontamination phase followed by colleen carlson and eventual wound closure planned. We will consider negative pressure wound therapy as well if the patient is a good candidate. I have explained risks, benefits, and alternatives of the above-st ated plan, continue antibiotic coverage in the interim. The patient agreed to proceed as indicated. MARIBEL/EVITA Voice ID: [id number] Report ID: [id number]
== END 2022-06-25 17:16 | DRG 623 ==
LOC: ER 21:51 → 3RD-ICU 06-21 00:39 → 2ND 06-25 03:15
PROVIDERS: ADMIT Hospitalist; ATTEND Internal Medicine
PROC: 0JDQ0ZZ Extraction of Right Foot Subcutaneous Tissue and Fascia, Open Approach (ICD-10-PCS; 2022-06-21)
PROC: 5A1D70Z Performance of Urinary Filtration, Intermittent, Less than 6 Hours Per Day (ICD-10-PCS; 2022-06-21)
PROC: 0KBV0ZZ Excision of Right Foot Muscle, Open Approach (ICD-10-PCS; principal; 2022-06-21 11:45)
DX: E11.621 Type 2 diabetes mellitus with foot ulcer (principal); E87.1 Hypo-osmolality and hyponatremia; L03.115 Cellulitis of right lower limb; I50.32 Chronic diastolic (congestive) heart failure; I13.2 Hypertensive heart and chronic kidney disease with heart failure and with stage 5 chronic kidney disease, or end stage renal disease; L97.416 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 without evidence of necrosis; N18.6 End stage renal disease; E11.22 Type 2 diabetes mellitus with diabetic chronic kidney disease; E11.42 Type 2 diabetes mellitus with diabetic polyneuropathy; E11.65 Type 2 diabetes mellitus with hyperglycemia; E11.51 Type 2 diabetes mellitus with diabetic peripheral angiopathy without gangrene; D63.1 Anemia in chronic kidney disease; K76.0 Fatty (change of) liver, not elsewhere classified; K80.20 Calculus of gallbladder without cholecystitis without obstruction; B95.1 Streptococcus, group B, as the cause of diseases classified elsewhere; B96.89 Other specified bacterial agents as the cause of diseases classified elsewhere; Z79.4 Long term (current) use of insulin; Z99.2 Dependence on renal dialysis; Z79.82 Long term (current) use of aspirin; Z79.84 Long term (current) use of oral hypoglycemic drugs; Z79.52 Long term (current) use of systemic steroids; Z86.16 Personal history of COVID-19; Z87.891 Personal history of nicotine dependence; Z79.899 Other long term (current) drug therapy; Z20.822 Contact with and (suspected) exposure to COVID-19
CPT/HCPCS: 0241U; 36415; 80048; 80053; 80061; 80202; 82947; 83036; 83735; 84100; 84145; 84443; 85025; 87070; 87075; 87077; 87186; 87205; 87811; 88304; 90935; 93005; 93925; 93970; 96365; 96375; 97161; 97530; 99285; J0360; J0692; J1644; J1815; J2001; J2250; J2405; J2704; J3010; J3370; J7040; J7050; Q5106

== ENCOUNTER 2022-07-14 15:08 | Emergency (ER) | payer OTHER ==
--- OUTSIDE RECORDS SUMMARY | 2022-07-14 15:14 | XMS REPORT | Continuity of Care Document ---
:1975 Author Organization [facility] t Address [address] [place] [address] Care Team Providers Name Role Phone Todd Davis DO Matt Primary Care Physician [phone] Todd Davis Attending Clinician Unavailable DEBRA TREJO Attending Clinician Unavailable TIMOTHY EARL Attending Clinician Unavailable Tiomthy Prince Attending Clinician DELVIN MULLINS Attending Clinician Unavailable MD DELVIN MULLINS Attending Clinician Unavailable GUILHERME GONCALVES Attending Clinician Unavailable Debra Trejo MD Attending Clinician Only, Adc Test Attending Clinician Unavailable Doctor Unassigned, [place] Attending Clinician Unavailable Gramm Leona BLANKENSHIP Attending Clinician DEBRA TREJO Admitting Clinician Unavailable TIMOTHY EARL Admitting Clinician Unavailable DELVIN MULLINS Admitting Clinician Unavailable MD DELVIN MULLINS Admitting Clinician Unavailable Debra Trejo MD Admitting Clinician Payers Payer Name Policy Type Policy Effective Date Expiration Date Sour ce Number MEDICARE PART A [id number] 2019 \\T\\ B 00:00:00 TREGO [id number] 2020 BENEFITS 00:00:00 MEDICARE KATIE LEE [id number] 2019 [facility] 00:00: - [facility] [id number] 2017 SELECT 00:00:00 Problems Condition Condition Condition Status Onset Resolution Last Treating Co mments Source Name Details Category Date Date Treatment Clinician Date ESRD (end ESRD (end Disease Active Overview: Methodi stage stage [address] renal renal 00:00: g of this Hospita disease) disease) 00 note l might be different from the original. Added automatic ally from request for surgery [id number] Anemia of Anemia of Disease Active Met [...] catheter, for initial initial surgery encounter encounter [id number] Infection Infection Disease Active Overview: Univers associated associated 01-27 Formattin ity of with with 00:00: g of this [place] peritoneal peritoneal 00 note Me dical dialysis dialysis might be [place] catheter, catheter, different initial initial from the encounter encounter original. Added automatic ally from request for surgery [id number] Obesity Obesity Disease Active Methodi (BMI (BMI 03-27 30-39.9) 30-39.9) 00:00: Hospit a 00 l ESRD (end ESRD (end Disease Active Overview: Univers stage stage 9 Formattin ity of renal renal 00:00: g of this [place] disease) disease) 00 note Medica l on on might be Branch dialysis dialysis different from the original. Added automatic ally from request for surgery [id number] Tobacco Tobacco Disease Active Univers use use 07-16 ity of disorder disorder 00:00: [place] 00 Medical Branch Essential Essential Disease Active Met hodi hypertensi hypertensi 07-16 st on on 00:00: Hospita 00 l Hypertrigl Hypertrigl Disease Active M ethodi yceridemia yceridemia 07-16 00:00: Hospita 00 l [id number] Kidney Problem Active Common disease [facility] - [facility] [id number] LVH (left Problem Active Comm on ventricula [facility] r - [facility] hypertroph St y) [facility] [id number] Mixed Problem Active Common hyperlipid [facility] emia [facility] [id number] Type 2 Problem Active Common diabetes [facility] mellitus - [facility] without complicati [facility] on, Medical without Center long-term current use of insulin [id number] Vitamin D Problem Active Comm on deficiency [facility] [id number] Dependence Problem Active Co mmon on renal [facility] dialysis - [facility] [id number] Abnormal Problem Active Commo n gait [facility] [id number] HTN, goal Problem Active Comm on below [facility] 130/80 - [facility] [id number] Primary Problem Active Comm on osteoarthr [facility] itis of [facility] right knee [facility] [id number] Seasonal Problem Active Comm on allergies [facility] [id number] Morbid Problem Active Common (severe) Spirit obesity - [facility] due to [facility] Allergies, Adverse Reactions, Alerts Allergy Allergy Status Severity Reaction(s) Onset Inactive Treating Comm ents Source Name Type Date Date Clinician NO KNOWN Drug Active Univers ALLERGIE Class ity of S [facility] Family History Family Member Diagnosis Comments Start Date Stop Date Source Natural father Diabetes [facility] Natural father Multiple myeloma [facility] Natural mother Diabetes [facility] Natural mother Hypertension [facility] [place] [facility] Social History Social Habit Start Date Stop Date Quantity Comments Source History of Tobacco [facility] - Use [facility] History [facility] University o f [facility] [place] [facility] University o f Alcohol Std Drinks [facility] History [facility] University o f Alcohol Binge [facility] al [place] Exposure to 2022-02-02 2022-02-12 Unable to assess Univers ity of SARS-CoV-2 (event) 00:00:00 10:16:00 [facility] Alcohol intake 2020-03-17 2020-03-17 Ex-drinker [facility] 00:[facility]:00 (finding) Hospital Cigarette 2020-03-10 2020-03-10 [facility] pack-years 00:00:00 00:00:00 Hospital Cigarettes smoked 2020-03-10 2020-03-[address] current (pack per 00:00:00 00:00:00 Hospita l day) - Reported Tobacco use and 2019-03-25 2019-03-25 User of smokeless Un iversity of exposure 00:00:00 00:00:00 tobacco [facility] Tobacco Comment 2016-07-16 2016-07-16 1-2 packs daily Univ ersity of 00:00:00 00:00:00 sometimes; other [facility] [place] dical times could be 1 Branch week. ; chewing tobacco - 25 years; 1 can every other day. Alcohol Comment 2016-07-16 2016-07-16 occasional Universit y of 00:00:00 00:00:00 [facility] Sex Assigned At [birth year] [facility] 00:00:00 00:00:00 Hospital Smoking Status Start Date Stop Date Source Former Smoker 2020-06-15 00:00:00 2020-06-15 00:00:00 [facility] - [facility] Ce nter Current every day 2018-01-06 00:00:00 [facility] Medications Ordered Filled Start Stop Current [...] use approved by: ED PROVIDER clindamycin 0 2022- No [id number] 450mg Take 3 Univers 150 mg 02-12 capsules ity of capsule 00:00: 04:59 by mouth [place] 00 :00 in the Medical morning Branch and 3 capsules at noon and 3 capsules in the evening. Do all this for 10 days. cholecalcif 2019-07 Yes Take by Met marycarmen florentino, 0-[address] vitamin D3, 10:39: Hospit a (Vitamin 55 l D3) 125 mcg (5,000 unit) tablet insulin 2019-07 Yes Inject Methodi glargine,hu 0-20 under the [facility].rec.anlog 10:39: skin. Hospi ta (TOUJEO MAX [...] l cholecalcif 2019-07 Yes Take by Met conroy chadd, 0-[address] vitamin D3, 10:39: Hospit a (Vitamin 55 l D3) 125 mcg (5,000 unit) tablet insulin 2019-07 Yes Inject Methodi glargine,hu 0-20 under the [facility].rec.anlog 10:39: skin. Hospi ta (TOUJEO MAX [...] tablet 10:39: daily. Hosp manuelito 55 l aspirin 81 2019-07 Yes Chew. Method i [...] Yes Inject Methodi glargine,hu 0-20 under the [facility].rec.anlog 10:39: skin. Hospi ta (TOUJEO MAX 55 l U-300 SOLOSTAR SUBQ) loratadine 2019-07 Yes 10mg QD Take 10 mg M ethodi (CLARITIN) 0-[address] 10 mg 10:39: daily. Hospita tablet 55 l cholecalcif 2019-07 Yes Take by Met hodi chadd, 0-[address] vitamin D3, 10:39: Hospit a (Vitamin 55 l D3) 125 mcg (5,000 unit) tablet insulin 2019-07 Yes Inject Methodi glargine,hu 0-20 under the [facility].rec.anlog 10:39: skin. Hospi ta (TOUJEO MAX [...] mg 10:39: daily. Hospita tablet 55 l BABY 2020-0 Yes Take by Univers ASPIRIN 7-24 mouth. ity of ORAL 20:26: [place] [address] Medical Branch Cholecalcif 2020-0 Yes Take by Uni vers chadd, 7-24 mouth. ity of Vitamin D3, 20:26: [place] (VITAMIN 37 Medical D3) 5,000 Branch unit tablet loratadine 2020-0 Yes 10mg Take 10 mg U nivers (CLARITIN) 7-24 by mouth ity o f 10 mg 20:26: daily. [place] tablet 37 Medical Branch liraglutide 2020-0 Yes inject Univ ers (VICTOZA 7-24 under the ity of 2-[place]) 20:26: skin. [place] [address] Medical Branch BABY 2020-0 Yes Take by Univers ASPIRIN 7-24 mouth. ity of ORAL 20:26: [place] [address] Medical Branch Cholecalcif 2020-0 Yes Take by Uni vers chadd, 7-24 mouth. ity of Vitamin D3, 20:26: [place] (VITAMIN 37 Medical D3) 5,000 Branch unit tablet loratadine 2020-0 Yes 10mg Take 10 mg U nivers (CLARITIN) 7-24 by mouth ity o f 10 mg 20:26: daily. [place] tablet 37 Medical Branch liraglutide 2020-0 Yes inject Univ ers (VICTOZA 7-24 under the ity of 2-[place]) 20:26: skin. [place] [address] Medical Branch BABY 2020-0 Yes Take by Univers ASPIRIN 7-24 mouth. ity of ORAL 20:26: [place] [address] Medical Branch Cholecalcif 2020-0 Yes Take by Uni vers chadd, 7-24 mouth. ity of Vitamin D3, 20:26: [place] (VITAMIN 37 Medical D3) 5,000 Branch unit tablet loratadine 2020-0 Yes 10mg Take 10 mg U nivers (CLARITIN) 7-24 by mouth ity o f 10 mg 20:26: daily. [place] tablet 37 Medical Branch liraglutide 2020-0 Yes inject Univ ers (VICTOZA 7-24 under the ity of 2-[place]) 20:26: skin. [place] [address] Medical Branch lactated 2020-0 Yes 1000mL at 75 Univer s ringers IV 7-24 mL/hr, ity of infusion 19:45: 1,000 [place], [place] 1[place]000 [place] 00 IV Medical Infusion, Branch CONTINUOUS , Starting Sat01/29/20 at 1445, Until Discontinu ed, Routine, PACU FENTanyl PF 2020-0 Yes 25ug 25 mcg, Uni vers (SUBLIMAZE 7-24 Slow IV ity of (PF)) 19:32: Push, [place] injection 11 Q5MIN PRN, Medi stacey 25 mcg 4 doses, Branch Starting Sat01/29/20 at 1432, Until Discontinu ed, Routine, Pain (scale 4-6), PACU ondansetron 2020-0 Yes 4mg 4 mg, Slow Univers (ZOFRAN 7-24 IV Push, ity of (PF)) 19:32: PRN, 1 [place] injection 4 11 dose, Medical mg Starting Branch Sat01/29/20 at 1432, Until Discontinu ed, Routine, Nausea and Vomiting (N/V), PACU BABY 2020-0 Yes Take by [facility] ASPIRIN 7 mouth. ity of ORAL 19:29: [address] Cholecalcif 2020-0 Yes Take by [facility] chadd, 7-24 mouth. ity of Vitamin D3, 19:29: [place] (VITAMIN [address] [place] [address] D3) 5,000 [place] unit tablet loratadine 2020-0 Yes 10mg Take 10 mg U nivers (CLARITIN) 724 by mouth ity o f 10 mg 19:29: daily. [address] liraglutide 2020-0 Yes inject Univ ers (VICTOZA 01-28 under the ity of 2-[place]) 19:29: skin. [address] lactated 2020-0 2020- No 1000mL at 20 Unive rs ringers IV 7-24 07-24 mL/hr, ity of infusion 16:00: 16:03 1,000 mL, [place] 1,000 mL 00 :00 IV Medical Infusion, Branch ONCE, 1 dose, Sat01/29/20 at 1100, Routine, DSU Pre-op ceFAZolin 2020-0 Yes 1000mg 1,000 mg, U nivers (ANCEF) 7-24 IV ity of 1,000 mg in 15:30: Piggyback, [place] NaCl 0.9% 08 O.R. Medical (NS) 50 mL HOLDING Branch MINI-BAG ONCE, 1 dose, Starting Sat01/29/20 at 1030, Until Discontinu ed, 50 mL, DSU Pre-op
Reason for Anti-Infec tive: Surgical Prophylaxi s
Surgi stacey Prophylaxi s: Abdominal< br>Duratio n of therapy: within 24 hours of surgery BABY 2020-0 Yes Take by Univers ASPIRIN 7-24 mouth. ity of ORAL 15:26: [place] [address] Medical Branch Cholecalcif 2020-0 Yes Take by Uni vers chadd, 7-24 mouth. ity of Vitamin D3, 15:26: [place] (VITAMIN 37 Medical D3) 5,000 Branch unit tablet loratadine 2020-0 Yes 10mg Take 10 mg U nivers (CLARITIN) 7-24 by mouth ity o f 10 mg 15:26: daily. [place] tablet 37 Medical Branch liraglutide 2020-0 Yes inject Univ ers (VICTOZA 7-24 under the ity of 2-[place]) 15:26: skin. [place] [address] Medical Branch BABY 2020-0 Yes Take by Univers ASPIRIN 7-24 mouth. ity of ORAL 13:26: [place] [address] Medical Branch Cholecalcif 2020-0 Yes Take by Uni vers chadd, 7-24 mouth. ity of Vitamin D3, 13:26: [place] (VITAMIN 51 Medical D3) 5,000 Branch unit tablet loratadine 2020-0 Yes 10mg Take 10 mg U nivers (CLARITIN) 7-24 by mouth ity o f 10 mg 13:26: daily. [place] tablet 51 Medical Branch liraglutide 2020-0 Yes inject Univ ers (VICTOZA 7-24 under the ity of 2-[place]) 13:26: skin. [place] [address] Medical Branch Cholecalcif 2020-0 Yes Take by Uni vers chadd, 7-23 mouth. ity of Vitamin D3, 18:22: [place] (VITAMIN 12 Medical D3) 5,000 Branch unit tablet loratadine 2020-0 Yes 10mg Take 10 mg U nivers (CLARITIN) 7-23 by mouth ity o f 10 mg 18:22: daily. [place] tablet 12 Medical Branch liraglutide 2020-0 Yes inject Univ ers (VICTOZA 7-23 under the ity of 2-[place]) 18:22: skin. [place] [address] Medical Branch Cholecalcif 2020-0 Yes Take by Uni vers chadd, 7-23 mouth. ity of Vitamin D3, 18:22: [place] (VITAMIN 12 Medical D3) 5,000 Branch unit tablet loratadine 2020-0 Yes 10mg Take 10 mg U nivers (CLARITIN) 7-23 by mouth ity o f 10 mg 18:22: daily. [facility] 12 Medical Branch liraglutide 2020-0 Yes inject Univ ers (VICTOZA 7-23 under the ity of 2-[place]) 18:22: skin. [place] 12 Medical Branch fluconazole 2020-0 Yes 200mg [...] mg by ity of tablet 00:00: mouth [place] 00 daily. Medical Branch fluconazole 2020-0 Yes 200mg Take 200 U nivers 200 mg 7-22 mg by ity of tablet 00:00: mouth [place] 00 daily. Medical Branch VICTOZA 2020-0 2020- [...] 7-13 by mouth ity of 00:00: daily. [place] 00 Medical Branch glimepiride 2020-0 Yes 4mg Take 4 mg U nivers 4 mg tablet 7-13 by mouth ity of 00:00: daily. [place] Medical Branch glimepiride 2020-0 Yes 4mg Take 4 mg U nivers 4 mg tablet 7-13 by mouth ity of 00:00: daily. [place] Medical Branch glimepiride 2020-0 Yes 4mg Take 4 mg U nivers 4 mg tablet 7-13 by mouth ity of 00:00: daily. [place] Medical Branch glimepiride 2020-0 Yes 4mg Take 4 mg U nivers 4 mg tablet 7-13 by mouth ity of 00:00: daily. [place] Medical Branch glimepiride 2020-0 Yes 4mg Take 4 mg U nivers 4 mg tablet 7-13 by mouth ity of 00:00: daily. [place] [facility] Branch glimepiride 2020-0 Yes 4mg Take [...] Units to ity of ointment 00:00: affected [place] 00 area(s) Medical daily. Branch Apply a [...] Units to ity of ointment 00:00: affected [place] area(s) Medical daily. Branch Apply a nickel [...] 2-30 mouth. ity of ORAL 19:59: [address] Cholecalcif 2018-07 Yes Take by Uni vers chadd, 2-30 mouth. ity of Vitamin D3, 19:59: [place] (VITAMIN Medical D3) 5,000 Branch unit tablet loratadine 2018-07 Yes 10mg Take 10 mg U nivers (CLARITIN) 2-30 by mouth ity o f 10 mg 19:59: daily. [place] [address] Medical [place] liraglutide 2018-07 Yes inject Univ ers (VICTOZA 2-30 under the ity of 2-[place]) 19:59: skin. [place] [address] Medical Branch BABY 2018-07 Yes Take by Univers ASPIRIN 2-30 mouth. ity of ORAL 19:59: [address] Cholecalcif 2018-07 Yes Take by Uni vers chadd, 2-30 mouth. ity of Vitamin D3, 19:59: [place] (VITAMIN Medical D3) 5,000 Branch unit tablet loratadine 2018-07 Yes 10mg Take 10 mg U nivers (CLARITIN) 2-30 by mouth ity o f 10 mg 19:59: daily. [place] [address] Medical Branch liraglutide 2018-07 Yes inject Univ ers (VICTOZA 2-30 under the ity of 2-[place]) 19:59: skin. [place] [address] Medical Branch BABY 2018-07 Yes Take by Univers ASPIRIN 2-30 mouth. ity of ORAL 19:59: [address] BABY 2018-07 Yes Take by Univers ASPIRIN 2-30 mouth. ity of ORAL 19:59: [address] traMADol 50 2018-07 Yes [id number] 50mg Take 1 Univers mg tablet 2-30 tablet by ity o f 00:00: mouth [place] 00 every 6 Medical (six) Branch hours as needed for Pain (scale 7-10). traMADol 50 2018- Yes [id number] 50mg Take 1 Univers mg tablet 2-30 tablet by ity o f 00:00: mouth [place] 00 every 6 Medical (six) Branch hours as needed for Pain (scale 7-10). traMADol 50 2018-07 Yes [id number] 50mg Take 1 Univers mg tablet 2-30 tablet by ity o f 00:00: mouth [place] 00 every 6 Medical (six) Branch hours as needed for Pain (scale 7-10). traMADol 50 2018-07 Yes [id number] 50mg Take 1 Univers mg tablet 2-30 tablet by ity o f 00:00: mouth [place] 00 every 6 Medical (six) Branch hours as needed for Pain (scale 7-10). traMADol 50 2018-07 Yes [id number] 50mg Take 1 Univers mg tablet 2-30 tablet by ity o f 00:00: mouth [place] 00 every 6 Medical (six) Branch hours as needed for Pain (scale 7-10). traMADol 50 2018-07 2020- No [id number] 50mg Take 1 Univers mg tablet 2-30 07-24 tablet by ity of 00:00: 00:00 mouth [place] 00 :00 every 6 Medical (six) Branch hours as needed for Pain (scale 7-10). Pen [place] Pen [place] 2018-07 Yes Todd 1 pen Common 3/16" 3/16" 0-02 [place] needle [facility] 00:00: with - [facility] 00 [facility] Pen [place] Pen [place] 2018-07 No QD Pen 316" 31G X 3/16" 31G X 0-02 [place] 5 MM 5 MM 00:00: 3/16" 31G 00 X 5 MM BABY Yes Take by Univers ASPIRIN 9-20 mouth. ity of ORAL 18:03: [place] [address] Medical Branch Cholecalcif Yes Take by Uni vers chadd, 9-20 mouth. ity of Vitamin D3, 18:03: [place] (VITAMIN Medical D3) 5,000 Branch unit tablet loratadine Yes 10mg Take 10 mg U nivers (CLARITIN) 9-20 by mouth ity o f 10 mg 18:03: daily. [place] [address] Medical Branch liraglutide 2019-0 Yes inject Univ ers (VICTOZA -20 under the ity of 2-[place]) 18:03: skin. [place] 50 Medical Branch morpHINE 2019-0 Yes 4mg 4 mg, Slow Uni vers injection 4 -20 IV Push, ity of mg 16:25: Q5MIN PRN, [place] 03 3 doses, Medical Starting Branch Sat03/27/19 at 1125, Until Discontinu ed, Routine, Pain (scale 7-10), PACU FENTanyl PF 2019-0 Yes 50ug 50 mcg, Uni vers (SUBLIMAZE -20 Slow IV ity of (PF)) 16:25: Push, [place] injection 03 Q5MIN PRN, [facility] stacey 50 mcg 4 doses, Branch Starting Sat03/27/19 at 1125, Until Discontinu ed, Routine, Pain (scale 4-6), PACU ondansetron 2019-0 Yes 4mg 4 mg, Slow Univers (ZOFRAN - IV Push, ity of (PF)) 16:25: PRN, 1 [place] injection 4 03 dose, Medical mg Starting Branch Sat03/27/19 at 1125, Until Discontinu ed, Routine, Nausea and Vomiting (N/V), PACU bupivacaine 2019-0 Yes PRN, Univer s -epinephrin 03-27 Starting ity of e-pf 15:56: Fri [place] (SENSORCAIN 00 03/27/19 at Ak dical E 1056, Branch W/EPINEPHRI Until NE) 0.25 Discontinu %-1:200,000 ed, injection Routine, Intra-op lidocaine 2019-0 Yes PRN, Univers 1% (PF) 03-27 Starting ity of (XYLOCAINE) 15:34: Fri [place] injection 00 03/27/19 at Medi stacey 1034, Branch Until Discontinu ed, Routine, Intra-op insulin 2019-0 2019- No 5U 5 Units, Unive rs regular 03-27-20 IV Push, ity of human 15:00: 14:54 ONCE NOW, [place] (HUMULIN R) 00 :00 1 dose, Medic al injection 5 Fri Branch Units 03/27/19 at 1000, REYNALDO, DSU Pre-op NaCl 0.9% 2019-0 Yes 500mL at 20 Univer s (NS) IV 9-20 mL/hr, IV ity of infusion 13:45: Infusion, [place] 500 mL 00 CONTINUOUS Medical , Starting Branch 03/27/19 at 0845, Until Discontinu ed, Routine, DSU Pre-op acetaminoph 2019-0 Yes [id number] 1000mg Take 2 Univers en (TYLENOL 9-20 tablets by it y of EXTRA 00:00: mouth [place] STRENGTH) 00 every 8 Medical 500 mg (eight) Branch tablet hours as needed for Pain. traMADol 50 2019-0 Yes [id number] 50mg Take 1 Univers mg tablet 9-20 tablet by ity o f 00:00: mouth [place] 00 every 6 Medical (six) Branch hours as needed for Pain (scale 4-6). acetaminoph 2019-0 Yes [id number] 1000mg Take 2 Univers en (TYLENOL 9-20 tablets by it y of EXTRA 00:00: mouth [place] STRENGTH) 00 every 8 Medical 500 mg (eight) Branch tablet hours as needed for Pain. traMADol 50 2018-0 Yes [id number] 50mg Take 1 Univers mg tablet 9-20 tablet by ity o f 00:00: mouth [place] 00 every 6 Medical (six) Branch hours as needed for Pain (scale 4-6). acetaminoph 2019-0 Yes [id number] 1000mg Take 2 Univers en (TYLENOL 9-20 tablets by it y of EXTRA 00:00: mouth [place] STRENGTH) 00 every 8 Medical 500 mg (eight) Branch tablet hours as needed for Pain. traMADol 50 2019-0 Yes [id number] 50mg Take 1 Univers mg tablet 9-20 tablet by ity o f 00:00: mouth [place] 00 every 6 Medical (six) Branch hours as needed for Pain (scale 4-6). acetaminoph 2019-0 Yes [id number] 1000mg Take 2 Univers en (TYLENOL 9-20 tablets by it y of EXTRA 00:00: mouth [place] STRENGTH) 00 every 8 Medical 500 mg (eight) Branch tablet hours as needed for Pain. traMADol 50 2019-0 Yes [id number] 50mg Take 1 Univers mg tablet 9-20 tablet by ity o f 00:00: mouth [place] 00 every 6 Medical (six) Branch hours as needed for Pain (scale 4-6). acetaminoph 2019-0 Yes [id number] 1000mg Take 2 Univers en (TYLENOL 9-20 tablets by it y of EXTRA 00:00: mouth [place] STRENGTH) 00 every 8 Medical 500 mg (eight) Branch tablet hours as needed for Pain. traMADol 50 2019-0 Yes [id number] 50mg Take 1 Univers mg tablet 9-20 tablet by ity o f 00:00: mouth [place] 00 every 6 Medical (six) Branch hours as needed for Pain (scale 4-6). acetaminoph 2019-0 Yes [id number] 1000mg Take 2 Univers en (TYLENOL 9-20 tablets by it y of EXTRA 00:00: mouth [place] STRENGTH) 00 every 8 Medical 500 mg (eight) Branch tablet hours as needed for Pain. traMADol 50 2019-0 Yes [id number] 50mg Take 1 Univers mg tablet 9-20 tablet by ity o f 00:00: mouth [place] 00 every 6 Medical (six) Branch hours as needed for Pain (scale 4-6). acetaminoph 2019-0 Yes [id number] 1000mg Take 2 Univers en (TYLENOL 9-20 tablets by it y of EXTRA 00:00: mouth [place] STRENGTH) 00 every 8 Medical 500 mg (eight) Branch tablet hours as needed for Pain. traMADol 50 2019-0 Yes [id number] 50mg Take 1 Univers mg tablet 9-20 tablet by ity o f 00:00: mouth [place] 00 every 6 Medical (six) Branch hours as needed for Pain (scale 4-6). acetaminoph 2019-0 Yes [id number] 1000mg Take 2 Univers en (TYLENOL 9-20 tablets by it y of EXTRA 00:00: mouth [place] STRENGTH) 00 every 8 Medical 500 mg (eight) Branch tablet hours as needed for Pain. traMADol 50 2019-0 Yes [id number] 50mg Take 1 Univers mg tablet 9-20 tablet by ity o f 00:00: mouth [place] 00 every 6 Medical (six) Branch hours as needed for Pain (scale 4-6). acetaminoph 2019-0 Yes [id number] 1000mg Take 2 Univers en (TYLENOL 9-20 tablets by it y of EXTRA 00:00: mouth [place] STRENGTH) 00 every 8 Medical 500 mg (eight) Branch tablet hours as needed for Pain. traMADol 50 2019-0 Yes [id number] 50mg Take 1 Univers mg tablet 9-20 tablet by ity o f 00:00: mouth [place] 00 every 6 Medical (six) Branch hours as needed for Pain (scale 4-6). acetaminoph 2019-0 Yes [id number] 1000mg Take 2 Univers en (TYLENOL 9-20 tablets by it y of EXTRA 00:00: mouth [place] STRENGTH) 00 every 8 Medical 500 mg (eight) Branch tablet hours as needed for Pain. traMADol 50 Yes [id number] 50mg Take 1 Univers mg tablet 9-20 tablet by ity o f 00:00: mouth [place] 00 every 6 Medical (six) Branch hours as needed for Pain (scale 4-6). acetaminoph Yes [id number] 1000mg Take 2 Univers en (TYLENOL 9-20 tablets by it y of EXTRA 00:00: mouth [place] STRENGTH) 00 every 8 Medical 500 mg (eight) Branch tablet hours as needed for Pain. traMADol 50 Yes [id number] 50mg Take 1 Univers mg tablet 9-20 tablet by ity o f 00:00: mouth [place] 00 every 6 Medical (six) Branch hours as needed for Pain (scale 4-6). ceFAZolin Yes 1000mg Univer s (ANCEF) 9-16 ity of 1,000 mg in 14:00: [place] NaCl 0.9% 00 Medical (NS) 50 mL Branch MINI-BAG ceFAZolin 0 Yes 1000mg Univer s (ANCEF) 9-16 ity of 1,000 mg in 14:00: [place] NaCl 0.9% 00 Medical (NS) 50 mL Branch MINI-BAG ceFAZolin 2018-0 Yes 1000mg Univer s (ANCEF) 9-16 ity of 1,000 mg in 14:00: [place] NaCl 0.9% 00 Medical (NS) 50 mL Branch MINI-BAG BABY Yes Take by [facility] ASPIRIN 03-12 mouth. ity of ORAL 19:19: [place] [address] Medical Branch Cholecalcif Yes Take by Uni vers chadd, 03-12 mouth. ity of Vitamin D3, 19:19: [place] (VITAMIN 49 Medical D3) 5,000 Branch unit tablet loratadine Yes 10mg Take 10 mg U nivers (CLARITIN) 03-12 by mouth ity o f 10 mg 19:19: daily. [place] tablet 49 Medical Branch BABY 0 Yes Take by [facility] ASPIRIN 03-12 mouth. ity of ORAL 19:19: [place] [address] Medical Branch Cholecalcif Yes Take by Uni vers chadd, 9-05 mouth. ity of Vitamin D3, 19:19: [place] (VITAMIN 49 Medical D3) 5,000 Branch unit tablet loratadine Yes 10mg Take 10 mg U nivers (CLARITIN) 9-05 by mouth ity o f 10 mg 19:19: daily. [place] tablet 49 Medical Branch BABY Yes Take by Univers ASPIRIN 9-05 mouth. ity of ORAL 19:19: [place] [address] Medical Branch Cholecalcif Yes Take by Uni vers chadd, 9-05 mouth. ity of Vitamin D3, 19:19: [place] (VITAMIN 49 Medical D3) 5,000 Branch unit tablet loratadine Yes 10mg Take 10 mg U nivers (CLARITIN) 9-05 by mouth ity o f 10 mg 19:19: daily. [place] tablet 49 Medical Branch BABY Yes Take by Univers ASPIRIN 9-05 mouth. ity of ORAL 19:19: [place] [address] Medical Branch Cholecalcif Yes Take by Uni vers chadd, 9-05 mouth. ity of Vitamin D3, 19:19: [place] (VITAMIN 49 Medical D3) 5,000 Branch unit tablet loratadine Yes 10mg Take 10 mg U nivers (CLARITIN) 9-05 by mouth ity o f 10 mg 19:19: daily. [place] tablet 49 Medical Branch BABY Yes Take by Univers ASPIRIN 9-05 mouth. ity of ORAL 19:19: [place] [address] Medical Branch Cholecalcif Yes Take by Uni vers chadd, 9-05 mouth. ity of Vitamin D3, 19:19: [place] (VITAMIN 49 Medical D3) 5,000 Branch unit tablet loratadine Yes 10mg Take 10 mg U nivers (CLARITIN) 9-05 by mouth ity o f 10 mg 19:19: daily. [place] tablet 49 Medical Branch BABY Yes Take by Univers ASPIRIN 9-05 mouth. ity of ORAL 19:19: [place] [address] Medical Branch Cholecalcif Yes Take by Uni vers chadd, 9-05 mouth. ity of Vitamin D3, 19:19: [place] (VITAMIN 49 Medical D3) 5,000 Branch unit tablet loratadine Yes 10mg Take 10 mg U nivers (CLARITIN) 9-05 by mouth ity o f 10 mg 19:19: daily. [facility] 49 Medical Branch doxazosin Yes TAKE 1 Method i (CARDURA) 2 8-[address] [facility] tablet 00:00: [facility] 00 TWICE A l DAY atorvastati Yes 10mg Take 10 mg Methodi n (LIPITOR) 8-[address] 10 mg 00:00: [facility]osp[facility] tablet 00 l doxazosin Yes TAKE 1 [facility] i (CARDURA) 2 8-[address] [facility] tablet 00:00: MOUTH [facility] 00 TWICE A l DAY atorvastati Yes 10mg Take 10 mg Methodi n (LIPITOR) 8-[address] 10 mg 00:00: Hospita tablet 00 l doxazosin Yes TAKE 1 Method i (CARDURA) 2 8-[address] MG tablet 00:00: MOUTH [facility] 00 TWICE A l DAY atorvastati Yes 10mg Take 10 mg Methodi n (LIPITOR) 8-[address] 10 mg 00:00: Hospita tablet 00 doxazosin 2 Yes TAKE 1 Univ ers mg tablet 8-26 TABLET BY ity o f 00:00: MOUTH [place] TWICE A Medical DAY Branch atorvastati Yes 10mg Take 10 mg Univers n 10 mg 8-26 by mouth ity of tablet 00:00: daily. [place] [facility] doxazosin 2 Yes TAKE 1 Univ ers mg tablet 8-26 TABLET BY ity o f 00:00: MOUTH [place] TWICE A Medical DAY Branch atorvastati Yes 10mg Take 10 mg Univers n 10 mg 8-26 by mouth ity of tablet 00:00: daily. [place] [facility] doxazosin 2 Yes TAKE 1 Univ ers mg tablet 8-26 TABLET BY ity o f 00:00: MOUTH [place] TWICE A Medical DAY Branch atorvastati Yes 10mg Take 10 mg Univers n 10 mg 8-26 by mouth ity of tablet 00:00: daily. Medical Branch doxazosin 2 Yes TAKE 1 Univ ers mg tablet 8-26 TABLET BY ity o f 00:00: MOUTH [place] TWICE A Medical DAY Branch atorvastati Yes [...] TABLET BY st MG tablet 00:00: MOUTH [facility] 00 TWICE A l DAY atorvastati Yes 10mg Take 10 mg Methodi n (LIPITOR) 8-[address] 10 mg 00:00: Hospita tablet 00 l calcium 2019-0 Yes TAKE BY [facility] acetate 667 7-25 MOUTH 1 ity o f mg capsule 00:00: CAPSULE 3 [place] 00 TIMES A Medical DAY WITH Branch FOOD AND 1 CAPSUE 2 TIMES WITH SNACKS calcium 2019-0 Yes TAKE BY [facility] acetate 667 7-25 MOUTH 1 ity o f mg capsule 00:00: CAPSULE 3 [place] 00 TIMES A Medical DAY WITH Branch FOOD AND 1 CAPSUE 2 TIMES WITH SNACKS calcium 2019-0 Yes TAKE BY [facility] acetate 667 7-25 MOUTH 1 ity o f mg capsule 00:00: CAPSULE 3 [place] 00 TIMES A Medical DAY WITH Branch FOOD AND 1 CAPSUE 2 TIMES WITH SNACKS calcium 2019-0 Yes TAKE BY [facility] acetate 667 7-25 MOUTH 1 ity o f mg capsule 00:00: CAPSULE 3 [place] 00 TIMES A Medical DAY WITH Branch FOOD AND 1 CAPSUE 2 TIMES WITH SNACKS calcium 2019-0 Yes TAKE BY [facility] acetate 667 7-25 MOUTH 1 ity o f mg capsule 00:00: CAPSULE 3 [place] 00 TIMES A Medical DAY WITH Branch FOOD AND 1 CAPSUE 2 TIMES WITH SNACKS calcium 2019-0 Yes TAKE BY [facility] acetate 667 7-25 MOUTH 1 ity o f mg capsule 00:00: CAPSULE 3 [place] 00 TIMES A Medical DAY WITH Branch FOOD AND 1 CAPSUE 2 TIMES WITH SNACKS calcium 2019-0 Yes TAKE BY [facility] acetate 667 7-25 MOUTH 1 ity o f mg capsule 00:00: CAPSULE 3 [place] 00 TIMES A Medical DAY WITH Branch FOOD AND 1 CAPSUE 2 TIMES WITH SNACKS calcium 2019-0 Yes TAKE BY [facility] acetate 667 7-25 MOUTH 1 ity o f mg capsule 00:00: CAPSULE 3 [place] 00 TIMES A Medical DAY WITH Branch FOOD AND 1 CAPSUE 2 TIMES WITH SNACKS calcium 2019-0 Yes TAKE BY [facility] acetate 667 7-25 MOUTH 1 ity o f mg capsule 00:00: CAPSULE 3 [place] 00 TIMES A Medical DAY WITH Branch FOOD AND 1 CAPSUE 2 TIMES WITH SNACKS calcium 2019-0 2020- No TAKE BY [facility] acetate 667 7-25 07-23 MOUTH 1 ity of mg capsule 00:00: 00:00 CAPSULE 3 [place] :00 TIMES A Medical DAY WITH Branch FOOD AND 1 CAPSUE 2 TIMES WITH SNACKS calcium 2019-0 2020- No TAKE BY [facility] s acetate 667 01-29 MOUTH 1 ity of mg capsule 00:00: 00:00 CAPSULE 3 [place] 00 :00 TIMES A Medical DAY WITH Branch FOOD AND 1 CAPSUE 2 TIMES WITH SNACKS calcium 2020- No TAKE BY [facility] s acetate 667 01-29 MOUTH 1 ity [...] A l tablet DAY GLIMEPIRIDE 2017-07 Yes [id number] TAKE 1 Univers 2 mg tablet 1-19 TABLET BY ity of 00:00: MOUTH [place] 00 EVERY DAY Medical WITH [place] BREAKFAST GLIMEPIRIDE 2017-07 Yes [id number] TAKE 1 Univers 2 mg tablet 1-19 TABLET BY ity of 00:00: MOUTH [place] 00 EVERY DAY Medical WITH [place] BREAKFAST GLIMEPIRIDE 2017-07 Yes [id number] TAKE 1 Univers 2 mg tablet 1-19 TABLET BY ity of 00:00: MOUTH [place] 00 EVERY DAY Medical WITH Branch BREAKFAST GLIMEPIRIDE 2017-07 Yes [id number] TAKE 1 Univers 2 mg tablet 1-19 TABLET BY ity of 00:00: MOUTH [place] 00 EVERY DAY Medical WITH [place] BREAKFAST GLIMEPIRIDE 2017-07 Yes [id number] TAKE 1 Univers 2 mg tablet 1-19 TABLET BY ity of 00:00: MOUTH [place] 00 EVERY DAY Medical WITH [place] BREAKFAST GLIMEPIRIDE 2017-07 Yes [id number] TAKE 1 Univers 2 mg tablet 1-19 TABLET BY ity of 00:00: MOUTH [place] 00 EVERY DAY Medical WITH Branch BREAKFAST GLIMEPIRIDE 2017-07 Yes [id number] TAKE 1 Univers 2 mg tablet 1-19 TABLET BY ity of 00:00: MOUTH [place] 00 EVERY DAY Medical WITH [place] BREAKFAST GLIMEPIRIDE 2017-07 Yes [id number] TAKE 1 Univers 2 mg tablet 1-19 TABLET BY ity of 00:00: MOUTH [place] 00 EVERY DAY Medical WITH Branch BREAKFAST GLIMEPIRIDE 2017-07 Yes [id number] TAKE 1 Univers 2 mg tablet 1-19 TABLET BY ity of 00:00: MOUTH [place] 00 EVERY DAY Medical WITH Branch BREAKFAST GLIMEPIRIDE 2017-07 Yes [id number] TAKE 1 Univers 2 mg tablet 1-19 TABLET BY ity of 00:00: MOUTH [place] 00 EVERY DAY Medical WITH Branch BREAKFAST GLIMEPIRIDE 2017- Yes [id number] TAKE 1 Univers 2 mg tablet 1-19 TABLET BY ity of 00:00: MOUTH [place] 00 EVERY DAY Medical WITH Branch BREAKFAST GLIMEPIRIDE 2017-07 Yes [id number] TAKE 1 Univers 2 mg tablet 1-19 TABLET BY ity of 00:00: MOUTH [place] 00 EVERY DAY Medical WITH Branch BREAKFAST GLIMEPIRIDE 2017- 2020- No [id number] TAKE 1 Univers 2 mg tablet 07-26- TABLET BY it y of 00:00: 00:00 MOUTH [place] 00 :00 EVERY DAY Medical WITH Branch BREAKFAST GLIMEPIRIDE 2017- 2020- No [id number] TAKE 1 Univers 2 mg tablet -23 01- TABLET BY it y of 00:00: 00:00 MOUTH [place] 00 :00 EVERY DAY Medical WITH Branch BREAKFAST GLIMEPIRIDE 2017- 2020- No [id number] TAKE 1 Univers 2 mg tablet 07-26- TABLET BY it y of 00:00: 00:00 MOUTH [place] 00 :00 EVERY DAY Medical WITH Branch BREAKFAST TRADJEA 5 2017-07 Yes [id number] TAKE 1 Univers mg tablet 1-12 TABLET BY ity o f 00:00: MOUTH [place] 00 EVERY DAY Medical [facility]- Yes [id number] TAKE 1 Univers mg tablet 1-12 TABLET BY ity o f 00:00: MOUTH [place] 00 EVERY DAY Medical Branch TRADNTA 5 2017- Yes [id number] TAKE 1 Univers mg tablet 1-12 TABLET BY ity o f 00:00: MOUTH [place] 00 EVERY DAY Medical Branch TRADNTA 5 2018- Yes [id number] TAKE 1 Univers mg tablet 1-12 TABLET BY ity o f 00:00: MOUTH [place] 00 EVERY DAY Medical Branch TRADJENTA 5 2018- Yes [id number] TAKE 1 Univers mg tablet 1-12 TABLET BY ity o f 00:00: MOUTH [place] 00 EVERY DAY Medical Branch TRADNTA 5 2017- Yes [id number] TAKE 1 Univers mg tablet 1-12 TABLET BY ity o f 00:00: MOUTH [place] 00 EVERY DAY Medical Branch TRADJENTA 5 2017- Yes [id number] TAKE 1 Univers mg tablet 1-12 TABLET BY ity o f 00:00: MOUTH [place] 00 EVERY DAY Medical [facility] 5 2017-07 Yes [id number] TAKE 1 Univers mg tablet 1-12 TABLET BY ity o f 00:00: MOUTH [place] 00 EVERY DAY Medical [facility] 5 2017- Yes [id number] TAKE 1 Univers mg tablet 1-12 TABLET BY ity o f 00:00: MOUTH [place] 00 EVERY DAY Medical Branch [facility] 5 2017- Yes [id number] TAKE 1 Univers mg tablet 1-12 TABLET BY ity o f 00:00: MOUTH [place] 00 EVERY DAY Medical [facility] 5 2017-07 Yes [id number] TAKE 1 Univers mg tablet 1-12 TABLET BY ity o f 00:00: MOUTH [place] 00 EVERY DAY Medical Branch [facility] 5 2017-07 Yes [id number] TAKE 1 Univers mg tablet 1-12 TABLET BY ity o f 00:00: MOUTH [place] 00 EVERY DAY Medical Branch [facility] 5 2017-07 Yes [id number] TAKE 1 Univers mg tablet 1-12 TABLET BY ity o f 00:00: MOUTH [place] 00 EVERY DAY Medical [facility] 5 2017-07 Yes [id number] TAKE 1 Univers mg tablet 1-12 TABLET BY ity o f 00:00: MOUTH [place] 00 EVERY DAY Medical [facility] 5 2017-07 Yes [id number] TAKE 1 Univers mg tablet 1-12 TABLET BY ity o f 00:00: MOUTH [place] 00 EVERY DAY Medical [facility] 5 2017-07 Yes [id number] TAKE 1 Univers mg tablet 1-12 TABLET BY ity o f 00:00: MOUTH [place] EVERY DAY Medical [facility] 5 2017- Yes [id number] TAKE 1 Univers mg tablet 1-12 TABLET BY ity o f 00:00: MOUTH [place] 00 EVERY DAY Medical [facility] 5 2017- Yes [id number] TAKE 1 Univers mg tablet 1-12 TABLET BY ity o f 00:00: MOUTH [place] EVERY DAY Medical [facility] 5 2017- Yes [id number] TAKE 1 Univers mg tablet 1-12 TABLET BY ity o f 00:00: MOUTH [place] 00 EVERY DAY Medical Branch [facility] 5 2017- Yes [id number] TAKE 1 Univers mg tablet 1-12 TABLET BY ity o f 00:00: MOUTH [place] 00 EVERY DAY Medical Branch amLODIPine 2018-0 Yes 10mg Take 10 mg M ethodi [...] Hospita tablet 00 l amLODIPine 0 Yes [id number] 10mg Take 1 U nivers 10 mg 7-02 tablet by ity of tablet 00:00: mouth [place] 00 daily. Medical Branch amLODIPine Yes [id number] 10mg Take 1 U nivers 10 mg 7-02 tablet by ity of tablet 00:00: mouth [place] 00 daily. Medical Branch amLODIPine Yes [id number] 10mg Take 1 U nivers 10 mg 7-02 tablet by ity of tablet 00:00: mouth [place] 00 daily. Medical Branch amLODIPine Yes [id number] 10mg Take 1 U nivers 10 mg 7-02 tablet by ity of tablet 00:00: mouth [place] 00 daily. Medical Branch amLODIPine 0 Yes [id number] 10mg Take 1 U nivers 10 mg 7-02 tablet by ity of tablet 00:00: mouth [place] 00 daily. Medical Branch amLODIPine 0 Yes [id number] 10mg Take 1 U nivers 10 mg 7-02 tablet by ity of tablet 00:00: mouth [place] 00 daily. Medical Branch amLODIPine 0 Yes [id number] 10mg Take 1 U nivers 10 mg 7-02 tablet by ity of tablet 00:00: mouth [place] 00 daily. Medical Branch amLODIPine 0 Yes [id number] 10mg Take 1 U nivers 10 mg 7-02 tablet by ity of tablet 00:00: mouth [place] 00 daily. Medical Branch amLODIPine 0 Yes [id number] 10mg Take 1 U nivers 10 mg 7-02 tablet by ity of tablet 00:00: mouth [place] 00 daily. Medical Branch amLODIPine Yes [id number] 10mg Take 1 U nivers 10 mg 7-02 tablet by ity of tablet 00:00: mouth [place] 00 daily. Medical Branch amLODIPine Yes [id number] 10mg Take 1 U nivers 10 mg 7-02 tablet by ity of tablet 00:00: mouth [place] 00 daily. Medical Branch amLODIPine Yes [id number] 10mg Take 1 U nivers 10 mg 7-02 tablet by ity of tablet 00:00: mouth [place] 00 daily. Medical Branch amLODIPine Yes [id number] 10mg Take 1 U nivers 10 mg 7-02 tablet by ity of tablet 00:00: mouth [place] 00 daily. Medical Branch amLODIPine Yes [id number] 10mg Take 1 U nivers 10 mg 7-02 tablet by ity of tablet 00:00: mouth [place] 00 daily. Medical Branch amLODIPine Yes [id number] 10mg Take 1 U nivers 10 mg 7-02 tablet by ity of tablet 00:00: mouth [place] 00 daily. Medical Branch amLODIPine Yes [id number] 10mg Take 1 U nivers 10 mg 7-02 tablet by ity of tablet 00:00: mouth [place] 00 daily. Medical Branch amLODIPine Yes [id number] 10mg Take 1 U nivers 10 mg 7-02 tablet by ity of tablet 00:00: mouth [place] 00 daily. Medical Branch amLODIPine Yes [id number] 10mg Take 1 U nivers 10 mg 7-02 tablet by ity of tablet 00:00: mouth [place] 00 daily. Medical Branch amLODIPine Yes [id number] 10mg Take 1 U nivers 10 mg 7-02 tablet by ity of tablet 00:00: mouth [place] 00 daily. Medical Branch amLODIPine Yes [id number] 10mg Take 1 U nivers 10 mg 7-02 tablet by ity of tablet 00:00: mouth [place] 00 daily. [facility] Branch amLODIPine Yes 10mg Take 10 mg [...] 1 tablet C [facility] Doxazosin Doxazosin Yes [place] take 1 C ommon Mesylate Mesylate [place] tablet by S pirit mouth - [facility] twice a day [facility] Furosemide Furosemide Yes Todd take 1 Common [place] tablet by Spirit mouth - [facility] twice a [facility] [place] Toujeo Toujeo Yes Todd INJECT SUB Com mon SoloStar SoloStar [facility] 38 UNITS Sp karlee DAILY - [facility] Glimepiride Glimepiride Yes Todd take 1 Common [facility] tablet by Spirit mouth - [facility] every day [facility] Atorvastati Atorvastati Yes [place] TAKE 1 Common n Calcium n Calcium [place] TABLET BY Spirit MOUTH - [facility] EVERY DAY [facility] Vitamin D-3 Vitamin D-3 Yes Todd as Common [facility] directed [facility] Amlodipine Amlodipine Yes Todd take 1 Common Besylate Besylate [place] tablet by S pirit mouth - [facility] every day [facility] Tradjenta Tradjenta Yes Todd TAKE 1 C ommon [facility] TABLET BY Spirit MOUTH - [facility] EVERY DAY St ONCE A DAY [address] Metoprolol Metoprolol Yes Todd take 1 Common Tartrate Tartrate [facility] tablet by S pirit mouth - [facility] twice a [facility] [place] Atorvastati Atorvastati Yes Todd take 1 Common n Calcium n Calcium [place] tablet by Spirit mouth - [facility] every day [facility] Furosemide Furosemide No BID Furosemide 40 MG [...] MG/3ML MG/3ML [place] No QD Roopa SoloStar SoloStar SoloStar 300 UNIT/ML 300 UNIT/ML [...] single dose 2020-04-27 Completed [facility] 15:11:00 [facility] Hepatitis A (adult) Hepatitis A (adult) 2018-10-07 Completed [facility] 11:11:00 [facility] Tdap - Tdap - 2013-04-14 Completed [facility] 11:10:00 [facility] Vital Signs Vital Name Observation Time Observation Value Comments Source Systolic blood 2022-02-12 18:19:00 176 mm[Hg] Univer sity of pressure [facility] Diastolic blood 2022-02-12 18:19:00 95 mm[Hg] Unive rsity of pressure [facility] Heart rate 2022-02-12 18:19:00 72 /min [facility] Respiratory rate 2022-02-12 18:19:00 15 /min [facility] Oxygen saturation in 2022-02-12 18:19:00 100 /min [facility] blood by [facility] Pulse oximetry Branch Body temperature 2022-02-12 16:12:01 37.11 Aparna [facility] Body weight 2022-02-12 15:35:00 109 kg Universi ty of [facility] BMI 2022-02-12 15:35:00 36.54 kg/m2 Universi ty of [facility] height 2020-06-16 15:20:00 71 [in_i] [facility] weight 2020-06-16 15:20:00 267.5 [lb_av] Common [facility] temperature 2020-06-16 15:20:00 98.8 [degF] Common [facility] bmi 2020-06-16 15:20:00 37.3 kg/m2 [facility] oximetry 2020-06-16 15:20:00 97 % [facility] respiratory rate 2020-06-16 15:20:00 17 /min Comm on [facility] blood pressure 2020-06-16 15:20:00 138 mm[Hg] Common [facility] systolic [facility] blood pressure 2020-06-16 15:20:00 74 mm[Hg] Common [facility] diastolic [facility] Systolic blood 2020-02-09 20:54:00 169 mm[Hg] Univer sity of pressure [facility] Diastolic blood 2020-02-09 20:54:00 101 mm[Hg] Unive rsity of [facility] Heart rate 2020-02-09 20:54:00 88 /min Universi ty [facility] Body temperature 2020-02-09 20:54:00 36.83 Aparna [facility] 2020-02-09 20:54:00 20 /min [facility] Body height 2020-02-09 20:54:00 172.7 cm Universi ty of [facility] Body weight 2020-02-09 20:54:00 112.946 kg Universi ty of [facility] BMI 2020-02-09 20:54:00 37.86 kg/m2 Universi ty [facility] Oxygen saturation in 2020-02-09 20:54:00 98 /min University Arterial blood by [facility] Pulse oximetry Branch Systolic blood 2020-02-09 20:54:00 169 mm[Hg] Univer sity of pressure [place] [facility] Diastolic blood 2020-02-09 20:54:00 101 mm[Hg] Unive rsity of pressure [place] [facility] Heart rate 2020-02-09 20:54:00 88 /min Universi ty of [place] [facility] Body temperature 2020-02-09 20:54:00 36.83 Aparna Univ ersity of [place] [facility] Respiratory rate 2020-02-09 20:54:00 20 /min Univ ersity of [place] [facility] Body height 2020-02-09 20:54:00 172.7 cm Universi ty of [place] [facility] Body weight 2020-02-09 20:54:00 112.946 kg Universi ty of [place] [facility] BMI 2020-02-09 20:54:00 37.86 kg/m2 Universi ty of [facility] Oxygen saturation in 2020-02-09 20:54:00 98 /min University of Arterial blood by [facility] Pulse oximetry Branch Systolic blood 2020-01-29 19:55:00 123 mm[Hg] Univer sity of pressure [place] [facility] Diastolic blood 2020-01-29 19:55:00 81 mm[Hg] Unive rsity of pressure [place] [facility] Respiratory rate 2020-01-29 19:55:00 12 /min Univ ers[facility] Oxygen saturation in 2020-01-29 19:55:00 97 /min University of Arterial blood by [facility] Pulse oximetry Branch Heart rate 2020-01-29 19:40:00 72 /min Universi ty of [place] [facility] Body temperature 2020-01-29 19:25:00 36.89 Aparna Univ ersity of [place] [facility] Systolic blood 2020-01-28 16:36:00 111 mm[Hg] Univer sity of pressure [place] [facility] Diastolic blood 2020-01-28 16:36:00 76 mm[Hg] Unive rsity of pressure [place] [facility] Heart rate 2020-01-28 16:36:00 100 /min Universi ty of [place] [facility] Body temperature 2020-01-28 16:36:00 37.44 Aparna Univ ersity of [place] [facility] Respiratory rate 2020-01-28 16:36:00 18 /min Univ ersity of [place] [facility] Body weight 2020-01-28 16:36:00 110.859 kg Universi ty of [place] [facility] BMI 2020-01-28 16:36:00 34.10 kg/m2 Universi ty [facility] Systolic blood 2019-03-27 16:59:00 132 mm[Hg] Univer sity of pressure [facility] Diastolic blood 2019-03-27 16:59:00 82 mm[Hg] Unive rsity of [facility] Oxygen saturation in 2019-03-27 16:59:00 100 /min [facility] Arterial blood by [facility] Pulse oximetry Branch Heart rate 2019-03-27 16:45:00 81 /min Universi ty [facility] Respiratory rate 2019-03-27 16:45:00 20 /min [facility] Body temperature 2019-03-27 16:37:00 36.94 Aparna [facility] Body height 2019-03-25 17:00:00 180.3 cm Universi [facility] Body weight 2019-03-25 17:00:00 117.935 kg [facility] BMI 2019-03-25 17:00:00 36.26 kg/m2 Universi [facility] Systolic blood 2019-03-12 19:16:00 122 mm[Hg] Univer sity of pressure [facility] Diastolic blood 2019-03-12 19:16:00 79 mm[Hg] Unive rsity of [facility] Heart rate 2019-03-12 19:16:00 85 /min [facility] Body temperature 2019-03-12 19:16:00 38.11 Aparna [facility] Respiratory rate 2019-03-12 19:16:00 18 /min [facility] Body height 2019-03-12 19:16:00 172.7 cm [facility] Body weight 2019-03-12 19:16:00 116.484 kg [facility] BMI 2019-03-12 19:16:00 39.05 kg/m2 [facility] Procedures Procedure Date / Time Performing Clinician Source Performed XR FOOT 3+ VW LEFT 2022-02-12 17:18:00 Timothy Earl [facility] CBC WITH DIFF 2022-02-12 16:35:00 Timothy Earl Davey o [facility] COMP. METABOLIC PANEL 2022-02-12 16:21:00 Timothy Earl [facility] ([id number]) Medical Branch CONSENT/REFUSAL FOR 2022-02-12 15:18:13 [facility] BASIC METABOLIC PANEL 2020-01-29 16:55:00 Mitzi Benz [facility]ity [facility] (NA, K, CL, CO2, Medical Branch GLUCOSE, BUN, CREATININE, CA) POCT GLUCOSE(AGE 2020-01-29 15:48:00 Perfecto Bailey [facility] >30DAYS) Medical Branch DAY SURGERY - ADC 2020-01-29 05:01:00 Doctor Unassigned, No [facility] Branch EXTERNAL PROVIDER 2020-01-28 05:01:00 Doctor Unassigned, No [facility] RECORDS Name Medical [place] POCT GLUCOSE(AGE 2019-03-27 16:31:00 Debra Trejo [facility] 0-30DAYS) [facility] EKG-12 LEAD 2019-03-27 14:15:39 Aleksandar [facility] john [facility] BASIC METABOLIC PANEL 2019-03-27 13:52:00 Leona Telles [facility] (NA, K, CL, CO2, Medical Branch GLUCOSE, BUN, CREATININE, CA) CBC WITH DIFFERENTIAL 2019-03-27 13:51:[address] [facility] ASSIGNMENT OF BENEFITS 2019-03-12 19:03:56 Doctor Unassigned, No [facility] Name Medical Branch REFERRAL- 2019-03-10 05:01:00 Doctor Unassigned, No [facility] REQUEST/RESPONSE Name [facility] REFERRAL- 2019-02-17 05:01:00 Doctor Unassigned, No [facility] REQUEST/RESPONSE Name [facility] Plan of Care Planned Activity Planned Date Details Comments Source Future Scheduled 2022-06-20 COVID-19 VACCINE (#1) [facility] Test 21:54:07 [code = COVID-19 VACCINE (#1)] Future Scheduled 2022-06-20 Pneumococcal Vaccine: [facility] Test 21:54:07 Pediatrics (0 to 5 Years) and At-Risk Patients (6 to 64 Years) (1 - PCV) [code = Pneumococcal Vaccine: Pediatrics (0 to 5 Years) and At-Risk Patients (6 to 64 Years) (1 - PCV)] Future Scheduled 2022-06-20 DIABETES: RETINAL EYE [facility] Test 21:54:07 EXAM [code = DIABETES: RETINAL EYE EXAM] Future Scheduled 2022-06-20 [facility] Test 21:54:07 [code = DIABETIC FOOT EXAM] Future Scheduled 2022-06-20 Hepatitis C screening [facility] Test 21:54:07 (procedure) [code = [id number]] Future Scheduled 2022-06-20 COLONOSCOPY SCREENING [facility] Test 21:54:07 [code = COLONOSCOPY SCREENING] Future Scheduled 2022-06-20 INFLUENZA VACCINE [facility] Test 21:54:07 [code = INFLUENZA VACCINE] Future Scheduled 2022-06-20 COVID-19 VACCINE (#1) [facility] Hospital Test 21:54:07 [code = COVID-19 VACCINE (#1)] Future Scheduled 2022-06-20 Pneumococcal Vaccine: [facility] Test 21:54:07 Pediatrics (0 to 5 Years) and At-Risk Patients (6 to 64 Years) (1 - PCV) [code = Pneumococcal Vaccine: Pediatrics (0 to 5 Years) and At-Risk Patients (6 to 64 Years) (1 - PCV)] Future Scheduled 2022-06-20 DIABETES: RETINAL EYE [facility] Test 21:54:07 EXAM [code = DIABETES: RETINAL EYE EXAM] Future Scheduled 2022-06-20 DIABETIC FOOT EXAM [facility] Test 21:54:07 [code = DIABETIC FOOT EXAM] Future Scheduled 2022-06-20 Hepatitis C screening [facility] Test 21:54:07 (procedure) [code = 136187843] Future Scheduled 2022-06-20 COLONOSCOPY SCREENING [facility] Test 21:54:07 [code = COLONOSCOPY SCREENING] Future Scheduled 2022-06-20 INFLUENZA VACCINE [facility] Test 21:54:07 [code = INFLUENZA VACCINE] Future Scheduled 2022-05-14 HEPATITIS B VACCINES [facility] Test 04:26:27 (1 of 3 - 3-dose series) [code = HEPATITIS B VACCINES (1 of 3 - 3-dose series)] Future Scheduled 2022-05-14 COVID-19 VACCINE (#1) [facility] Test 04:26:27 [code = COVID-19 VACCINE (#1)] Future Scheduled 2022-05-14 Pneumococcal Vaccine: [facility] Test 04:26:27 Pediatrics (0 to 5 Years) and At-Risk Patients (6 to 64 Years) (1 - PCV) [code = Pneumococcal Vaccine: Pediatrics (0 to 5 Years) and At-Risk Patients (6 to 64 Years) (1 - PCV)] Future Scheduled 2022-05-14 DIABETES: RETINAL EYE [facility] Test 04:26:27 EXAM [code = DIABETES: RETINAL EYE EXAM] Future Scheduled 2022-05-14 [facility] Test 04:26:27 [code = DIABETIC FOOT EXAM] Future Scheduled 2022-05-14 Hep[facility] Test 04:26:27 (procedure) [code = 805097898] Future Scheduled 2022-05-14 COLONOSCOPY SCREENING [facility] Hospital Test 04:26:27 [code = COLONOSCOPY SCREENING] Future Scheduled 2022-05-14 INFLUENZA VACCINE [facility] Test 04:26:27 [code = INFLUENZA VACCINE] Future Scheduled 2021-08-08 COVID-19 VACCINE (1) [facility] Test 22:23:08 [code = COVID-19 VACCINE (1)] Future Scheduled 2021-08-08 DIABETES: RETINAL EYE [facility] Hospital Test 22:23:08 EXAM [code = DIABETES: RETINAL EYE EXAM] Future Scheduled 2021-08-08 [facility]ET[facility] Test 22:23:08 [code = DIABETIC FOOT EXAM] Future Scheduled 2021-08-08 Hepatitis C screening [facility] Test 22:23:08 (procedure) [code = 054905966] Future Scheduled 2021-08-08 INFLUENZA VACCINE [facility] Test 22:23:08 [code = INFLUENZA VACCINE] Encounters Start End Encounter Admission Attending Care Care Encounter Source Date/Time Date/Time Type Type Clinicians Facility Department ID 2021-08-02 Outpatient Davis [facility] [id number] Common 12:37:29 Todd [id number] [facility] 2021-08-02 Outpatient Davis, [facility] [id number] Common 11:44:45 Todd [id number] [facility] 2021-08-02 Outpatient Davis, [facility] [id number] Common 11:44:18 Todd 15556 [facility] 2021-08-02 Outpatient Davis, STLMLC [facility] [id number] Common 11:25:55 Todd 09845 [facility] 2021-08-02 Outpatient Davis, STLMLC STLMLC [id number] Common 11:25:27 Todd 65561 [facility] 2021-08-02 Outpatient Davis, STLMLC ST[facility] [id number] Common 11:17:13 Todd 29873 [facility] 2021-08-02 Outpatient Davis, STLMLC ST[facility] [id number] Common 11:12:09 Todd 15592 [facility] 2021-08-02 Outpatient Davis, STLC STLC [id number] Common 11:07:27 Todd [id number] [facility] 2021-05-05 Outpatient Ila [facility] [id number] Univers 08:28:09 DEBRA [facility] 2022-02-12 2022-02-12 Emergency X [facility] ERT [id number] Univers 10:36:[facility]12 2022-02-12 Emergency [facility] [id number] Univers 10:36:00 13:43:00 Timothy Mccurdy GR[place] [id number] i ty [facility] [id number] [facility] [phone] [place] [id number] [place] 2020-06-16 2020-06-16 OFFICE [facility] [id number] Co mmon 00:00:00 00:00:00 VISIT [facility] CHI LEVEL 4 [facility] 2020-05-24 2020-05-24 Outpatient SUSANNADELVIN [facility] [id number] [place] 00:00:00 00:00:00 125 Method i 2020-04-26 2020-04-26 Outpatient SUSANNAADOLFOY [facility] [id number] [place] 00:00:00 00:00:00 028 Method i 2020-04-14 2020-04-14 Outpatient DELVIN MULLINS [facility] [id number] [place] 00:00:00 00:00:00 467 Method i 2020-04-14 2020-04-14 Outpatient [facility] [id number] [place] 00:00:00 00:00:00 581 Method i 2020-03-17 2020-03-17 Out[facility] [id number] Common 14:10:00 14:10:00 Relive [facility] it [facility] 2020-03-15 2020-03-15 Outpatient SUSANNA DELVIN [facility] 021 [id number] [place] 00:00:00 00:00:00 751 Method i 2020-03-10 2020-03-10 Outpatient DELVIN MULLINS [facility] [id number] [place] 00:00:00 00:00:00 154 Method i 2020-03-10 2020-03-10 Outpatient DELVIN MULLINS [facility] [id number] 1752 [place] 00:00:00 00:00:00 038 Method i 2020-03-08 2020-03-08 Outpatient SACHA [facility] [id number] 939 [place] 00:00:00 00:00:00 GUILHERME 843 Method i 2020-03-08 2020-03-08 Outpatient SACHA [facility] [id number] 939 [place] 00:00:00 00:00:00 GUILHERME 916 Method i 2020-02-22 2020-02-22 Outpatient [facility] [id number] Common 16:58:00 16:58:00 Relive [facility] 2020-02-09 2020-02-09 Office [facility] [id number] 15:18:54 16:25:44 Visit Debra Addison [id number] Liz[place] 4.2.7.2.686 [place] [phone] [address] 2020-02-09 2020-02-09 Office [facility] [id number] [facility] 15:18:54 16:25:44 Visit Debra Addison [id number] i [id number] [phone] Ak dical nal 377 [facility] 2020-02-09 2020-02-09 [facility] [id number] Univers 15:30:00 15:30:00 DEBRA itsophia of [facility] 2020-01-29 2020-01-29 [facility] [id number] Univers 08:26:00 15:00:00 Encounter Debra Addison [id number] [id number] [id number] [address] 2020-01-29 2020-01-29 Laboratory Only, Adc Test [facility] 1.2.840. [id number] Univers 08:31:17 08:46:17 Only Debra Trejo [id number] [place] [phone] [facility] [address] 2020-01-29 2020-01-29 Orders Doctor DELONTE [id number] Univers 00:00:00 00:00:00 Only Unassigned, REIAN 350.1.13.10 ity [place] [facility] 4.2.7.2.686 Alfred as [phone] [facility] [address] 2020-01-28 2020-01-28 Office [facility] [id number] Univers 11:28:36 11:56:45 Visit Debra Addison 350.1.13.10 [place] [phone] Ak dical nal 377 [facility] 2020-01-28 2020-01-28 [facility] [id number] Univers 11:15:00 11:15:00 DEBRA juan of [facility] 2020-01-28 2020-01-28 Orders Doctor DELONTE [id number] Univers 00:00:00 00:00:00 Only Unassigned, REINA [id number] ity of [place] [facility] 4.2.7.2.686 Alfred as [phone] [facility] [address] 2020-01-28 2020-01-28 Prep For Elfego, [facility] [id number] [facility] 00:00:00 00:00:00 Surgery [id number] [place] 4.2.7.2.686 Jace mccurdy carlos [phone] Ak dical nal [address] [facility] 2020-01-20 2020-01-20 Out[facility] [id number] Common 15:47:00 15:47:[address] Family [facility] 2019-12-16 2019-12-16 Out[facility] [id number] Common 15:00:00 15:00:[address] [address] [facility] 2019-12-16 2019-12-16 Out[facility] [id number] Common 14:45:00 14:45:[address] [address] Family [facility] 2019-11-26 2019-11-26 Outpatient [facility] [id number] Common 13:57:00 13:57:00 t [facility] [address] Sp[address] Road [facility] 2019-09-15 2019-09-15 Outpatient [facility] [id number] Common 15:15:00 15:15:[address] [place] [address] Family [facility] 2019-09-14 2019-09-14 Out[facility] [id number] Common 07:56:00 07:56:[address] [place] [address] Family [facility] 2019-09-10 2019-09-10 Out[facility] [id number] Common 10:00:00 10:00:00 t [facility] 2019-09-07 2019-09-07 Out[facility] [id number] Common 09:39:00 09:39:[address] [place] [address] Family [facility] 2019-08-13 2019-08-13 Out[facility] [id number] Common 14:49:00 14:49:[address] [place] [address] [facility] 2019-07-20 2019-07-20 Outpatient Ila [facility] [id number] Univers 09:15:00 09:16:44 DEBRA juan [facility] 2019-07-06 2019-07-06 Outpatient [facility] EFRA [id number] Univers 10:18:00 13:59:00 DEBRA jaun [facility] 2019-06-25 2019-06-25 Outpatient [facility] [id number] Common 11:04:00 11:04:[address] [address] [facility] 2019-06-18 2019-06-18 [facility] [id number] Univers 14:30:00 14:54:07 DEBRA juan [facility] 2019-06-15 2019-06-15 Outpatient [facility] [id number] Common 10:00:00 10:00:[address] [place] [address] [facility] 2019-06-10 2019-06-10 Outpatient [facility] [id number] Common 08:33:00 08:33:[address] [place] [address] [facility] 2019-06-08 2019-06-08 Outpatient [facility] [id number] Common 13:51:00 13:51:00 t [facility] [address] Road [facility] 2019-04-09 2019-04-09 Out[facility] [id number] Univers 13:30:00 13:40:01 DEBRA juan [facility] 2019-04-08 2019-04-08 Outpatient [facility] [id number] Common 16:33:00 16:33:[address] [facility] 2019-03-27 2019-03-27 [facility] 1.2.840.114 [id number] Univers 08:38:00 13:00:00 Encounter Debra Addison [id number] [place] [id number] [facility] [address] 2019-03-17 2019-03-17 Telephone [facility] [id number] Univers 00:00:00 00:00:00 Leona Addison 350.1.13.10 [place] [id number] [address] 2019-03-17 2019-03-17 Telephone [facility] [id number] Univers 00:00:00 00:00:00 Leona Addison 350.1.13.10 [place] [phone] [address] 2019-03-13 2019-03-13 Outpatient [facility] [id number] Common 08:45:00 08:45:[address] [facility] Family [facility] 2019-03-12 2019-03-12 Office Neil [facility] [id number] Univers 14:05:56 15:28:12 Visit Debra Addison 350.1.13.10 i [place] [phone] [address] 2019-03-12 2019-03-12 Outpatient R [facility] [id number] Univers 14:00:00 14:43:39 DEBRA juan [facility] 2019-03-12 2019-03-12 Orders Doctor DELONTE 1.2.840.114 [id number] Univers 00:00:00 00:00:00 Only Unassigned, REINA 350.1.13.10 ity [place] [facility] 4.2.7.2.686 Alfred as [phone] [address] 2019-03-12 2019-03-12 Prep [facility] 1.2.840.114 [id number] Univers 00:00:00 00:00:00 Surgery Leona Addison 350.1.13.10 [place] [phone] Ak dical [facility] [address] [facility] 2019-03-10 2019-03-10 Orders Doctor DELONTE 1.2.840.114 [id number] Univers 00:00:00 00:00:00 Only Unassigned, REINA 350.1.13.10 ity of [place] [facility] 4.2.7.2.686 Alfred as [id number] [address] 2019-02-17 2019-02-17 Orders Doctor DELONTE 1.2.840.114 [id number] Univers 00:00:00 00:00:00 Only Unassigned, REINA 350.1.13.10 ity of [place] [facility] 4.2.7.2.686 Alfred as [phone] [address] Results Test Description Test Time Test Comments Results Result Comments Source COMP. METABOLIC PANEL (95463) 2022-02-12 16:53:37 Test Item Value Reference Range Interpretation Comme nts NA (test code = 1085509935) 136 mmol/L 135-145 K (test code = 3617764176) 4.6 mmol/L 3.5-5 CL (test code = 0232378932) 96 mmol/L 98-108 L CO2 TOTAL (test code = 8925273991) 24 mmol/L 23-31 AGAP (test code = 8616765640) 2-16 BUN (test code = 5913166077) 54 mg/dL 7-23 H GLUCOSE (test code = 1960778220) 241 mg/dL 70-110 H CREATININE (test code = 9.53 mg/dL 0.6-1.25 H 5960290020) TOTAL BILI (test code = 0.6 mg/dL 0.1-1.1 7575477474) CALCIUM (test code = 2719899151) 8.9 mg/dL 8.6-10.6 T PROTEIN (test code = 3363560498) 7.3 g/dL 6.3-8.2 ALBUMIN (test code = 9514996288) 3.7 g/dL 3.5-5 ALK PHOS (test code = 6425415453) 146 U/L 34-122 H ALTv (test code = 1742-6) 17 U/L 5-50 AST(SGOT) (test code = 6057504712) 17 U/L 13-40 eGFR (test code = 2678907986) mL/min/1.73m2 CRISTIANA (test code = CRISTIANA) Association [...] tests). Lab Interpretation (test code = Abnormal 37115-1) [facility] WITH [id number] 16:42:15 Test Item Value Reference Range Interpretation Comments WBC (test code = See_Comment [Automated 5390-2) message] The sy stem which generated this result transmitted reference range : 4.20 - 10.70 10*3/?L. The reference range was not used to interpret this result as normal/abnormal . RBC (test code = See_Comment L [Automated 349-8) message] The sy stem which generated this [...] RDW-SD (test code = 47.8 fL 38.5-51.6 81294-2) RDW-CV (test code = 14.8 % 12.1-15.4 788-0) PLT (test code = See_Comment [Automated 777-3) message] The sy stem which generated this result transmitted reference range : 150 - 328 10*3/ ?L. The reference r jesse was not used to interpret this result as normal/abnormal . MPV (test code = 10.0 fL 9.8-13 22336-8) NRBC/100 WBC (test See_Comment [Automat ed code = 8373060009) message] The system which generated this result transmitted reference range : 0.0 - 10.0 /100 WBCs. The refer ence range was not u sed to interpret th is result as normal/abnormal . NRBC x10^3 (test code See_Comment [Auto mated = 5550118006) message] The s ystem which generated this result transmitted reference range : 10*3/?L. The reference range was not used to interpret this result as normal/abnormal . GRAN MAT (NEUT) % 77.8 % (test code = 770-8) IMM GRAN % (test code 0.50 % = 0717677258) LYMPH % (test code = 10.8 % 736-9) MONO % (test code = 7.7 % 5905-5) EOS % (test code = 2.9 % 713-8) BASO % (test code = 0.3 % 706-2) GRAN MAT x10^3(ANC) 7.37 10*3/uL 1.99-6.95 H (test code = 9220814126) IMM GRAN x10^3 (test 0.05 10*3/uL 0-0.06 code = 7709480389) LYMPH x10^3 (test code 1.02 10*3/uL 1.09-3.23 L = 731-0) MONO x10^3 (test code 0.73 10*3/uL 0.36-1.02 = 742-7) EOS x10^3 (test code = 0.27 10*3/uL 0.06-0.53 711-2) BASO x10^3 (test code 0.03 10*3/uL 0.01-0.09 = 704-7) Lab Interpretation Abnormal (test code = 94277-3) [facility] RNA [Presence] in Respiratory specimen by BRAD with probe [id number] 23:16:36 Test Item Value Reference Range Interpretation Comments SARS-CoV-2 (COVID-19) RNA Not detected Not-Detected [Presence] in Respiratory specimen by BRAD with probe detection (test code = 36736-1) [facility] Metabolic Panel (NA, K, CL, CO2, Glucose, BUN, Creatinine, CA)2020-01-29 17:22:00 Test Item Value Reference Range Interpretation Comments NA (test code = 136 mmol/L 135-145 8606913777) K (test code = 3.6 mmol/L 3.5-5 5496227418) CL (test code = 97 mmol/L 98-108 L 0415640991) CO2 TOTAL (test code = 28 mmol/L 23-31 4717858714) AGAP (test code = 2-16 4173647548) BUN (test code = 49 mg/dL 7-23 H 1158187558) GLUCOSE (test code = 313 mg/dL 70-110 H 0608028237) CREATININE (test code = 9.39 mg/dL 0.6-1.25 H 9497057979) CALCIUM (test code = 9.1 mg/dL 8.6-10.6 1496145102) eGFR Calculation mL/min/1.73m2 (Non-) (test code = 0843505016) eGFR Calculation mL/min/1.73m2 () (test code = 7015274982) CRISTIANA (test code = CRISTIANA) Association of [...] tests). Lab Interpretation Abnormal (test code = 02443-3) [facility] [id number] 15:48:00 Test Item Value Reference Range Interpretation Comments POCT Glu (age>30days) (test code = 327 mg/dL 70-110 A 3342) Lab Interpretation (test code = Abnormal 29760-9) [facility] GLUCOSE(AGE 0-30DAYS)2019-03-27 16:31:00 Test Item Value Reference Range Interpretation Comments POCT Glu (age 0-30days) (test code 270 mg/dl 40-110 A = 3343) Lab Interpretation (test code = Abnormal 59716-8) [facility] WITH [id number] 14:20:00 Test Item Value Reference Range Interpretation [...] RDW-SD (test code = 42.0 fL 38.5-51.6 64125-6) RDW-CV (test code = 13.5 % 12.1-15.4 788-0) PLT (test code = See_Comment [Automated 777-3) message] The sy stem which generated this result transmitted reference range : 150 - 328 10*3/ ?L. The reference r jesse was not used to interpret this result as normal/abnormal . MPV (test code = 10.3 fL 9.8-13 25539-6) NRBC/100 WBC (test See_Comment [Automat ed code = 0493557070) message] The system which generated this result transmitted reference range : 0.0 - 10.0 /100 WBCs. The refer ence range was not u sed to interpret th is result as normal/abnormal . NRBC x10^3 (test code See_Comment [Auto mated = 4128723649) message] The s ystem which generated this result transmitted reference range : 10*3/?L. The reference range was not used to interpret this result as normal/abnormal . GRAN MAT (NEUT) % 71.8 % (test code = 770-8) IMM GRAN % (test code 0.90 % = 7495919093) LYMPH % (test code = 17.0 % 736-9) MONO % (test code = 6.2 % 5905-5) EOS % (test code = 3.7 % 713-8) BASO % (test code = 0.4 % 706-2) GRAN MAT x10^3(ANC) 6.71 10*3/uL 1.99-6.95 (test code = 8263282320) IMM GRAN x10^3 (test 0.08 10*3/uL 0-0.06 H code = 4356953396) LYMPH x10^3 (test code 1.59 10*3/uL 1.09-3.23 = 731-0) MONO x10^3 (test code 0.58 10*3/uL 0.36-1.02 = 742-7) EOS x10^3 (test code = 0.35 10*3/uL 0.06-0.53 711-2) BASO x10^3 (test code 0.04 10*3/uL 0.01-0.09 = 704-7) Lab Interpretation Abnormal (test code = 04161-5) [facility] METABOLIC PANEL (NA, K, CL, CO2, GLUCOSE, BUN, CREATININE, CA)2019-03-27 14:07:00 Test Item Value Reference Range Interpretation Comments NA (test code = 141 mmol/L 135-145 7581016433) K (test code = 4.5 mmol/L 3.5-5 4605369899) CL (test code = 102 mmol/L 98-108 9300795456) CO2 TOTAL (test code = 27 mmol/L 23-31 4481480160) AGAP (test code = 2-16 3324248448) BUN (test code = 44 mg/dL 7-23 H 1642587849) GLUCOSE (test code = 291 mg/dL 70-110 H 5485706736) CREATININE (test code = 7.35 mg/dL 0.6-1.25 H 5483480344) CALCIUM (test code = 9.5 mg/dL 8.6-10.6 8421503457) eGFR Calculation mL/min/1.73m2 (Non-) (test code = 9228125137) eGFR Calculation mL/min/1.73m2 () (test code = 5890624145) CRISTIANA (test code = CRISTIANA) Association of [...] tests). Lab Interpretation Abnormal (test code = 05462-3) [facility]
[2022-07-14] MEDS ORDERED: AMLODIPINE 10 MG TAB ONE (15:53)
[2022-07-14] MEDS ORDERED: METOPROLOL XL 50 MG TAB PO ONE (15:53)
--- NOTE | 2022-07-14 16:12 | RAD REPORT ---
EXAM DESCRIPTION: RAD - Chest Single View - 07/14/2022 4:05 pm CLINICAL HISTORY: ESRD COMPARISON: Chest Single View dated 10/07/2020; Chest Single View dated 09/23/2020; Chest Single View d ated 09/11/2020; Chest Single View dated 09/08/2020 FINDINGS: Lines: None. Lungs: No evidence of edema or pneumonia. Pleural: No significant pleural effusions or pneumothorax. Cardiac: Cardiomegaly. Mediastinum: Within normal limits. Bones: No acute fractures. Other: None IMPRESSION: No acute cardiopulmonary disease.
[2022-07-14 16:14] LABS: Absolute Lymphocytes (CBC) 1.5 K/uL (0.7-4.9); Hematocrit 35.5 % (39.6-49.0); Lymphocytes % 29.4 % (15.3-44.8); MCV 87.2 fL (80-100); MPV 7.2 fL (7.6-11.3); RBC Red Blood Cell Count 4.07 M/uL (4.33-5.43)
[2022-07-14 16:18] LABS: Protime INR 1.04
[2022-07-14 16:27] LABS: Phosphorus 3.3 mg/dL (2.5-4.9); Potassium 3.1 mmol/L (3.5-5.1)
--- NOTE | 2022-07-14 17:36 | ER ---
Nurse's Notes [facility] Name: Nikita Bartlett Age: 46 yrs Sex: Male : 1975 Arrival Date: 07/14/2022 Time: 15:17 Bed 20 Private MD: Diagnosis: Essential (primary) hypertension;End stage renal disease Presentation: 07/14 15:17 Chief complaint: EMS states: Pt just completed dialysis with 3.7 L removed and pts BP mb9 is 218/112. EMS states pt just got discharged from [facility] [place] and they did not administer his morning BP medications. EMS states pt has no family to live with and no place to go. Coronavirus screen: At this time, the client does not indicate any symptoms associated with coronavirus-19. Ebola Screen: No symptoms or risks identified at this time. Initial Sepsis Screen: Does the patient meet any 2 criteria? No. Patient's initial sepsis screen is negative. Does the patient have a suspected source of infection? No. Patient's initial sepsis screen is negative. Risk Assessment: Do you want to hurt yourself or someone else? Patient reports no desire to harm self or others. Onset of symptoms was July 14, 2022. 15:17 Method Of Arrival: EMS: [facility] mb9 15:17 Acuity: OCTAVIO 3 mb9 Historical: - Allergies: 15:21 No Known Allergies; mb9 - Home Meds: 15:21 olmesartan Oral [Active]; amlodipine oral [Active]; Aspirin Oral [Active]; atorvastatin mb9 Oral [Active]; doxyzosen [Active]; Glimepiride Oral [Active]; Metoprolol Tartrate Oral [Active]; Furosemide Oral [Active]; - PMHx: 15:21 Diabetes - NIDDM; Dialysis; Hypertension; osteomyelitis; Anemia; "Leaking heart valve"; mb9 Enlarged Heart; - PSHx: 15:21 Ulcer repair; mb9 - Immunization history:: Adult Immunizations up to date. - Social history:: Smoking status: Patient denies any tobacco usage or history of. - Family history:: not pertinent. - Hospitalizations: : No recent hospitalization is reported. Screenin:24 [facility] ED Fall Risk Assessment (Adult) History of falling in the last 3 months, mb9 including since admission No falls in past 3 months (0 pts) Confusion or Disorientation No (0 pts) Intoxicated or Sedated No (0 pts) Impaired Gait No (0 pts) Mobility Assist Device Used No (0 pt) Altered Elimination No (0 pt) Score/Fall Risk Level 0 - 2 = Low Risk Oriented to surroundings, Maintained a safe environment. Abuse screen: Denies threats or abuse. Nutritional screening: No deficits noted. Tuberculosis screening: No symptoms or risk factors identified. Assessment: 15:35 Reassessment: AV fistula noted to left forearm. Bruit and thrill noted. General: mb9 Appears in no apparent distress. comfortable, Behavior is calm, cooperative, appropriate for age. Pain: Denies pain. Neuro: Chan Agitation-Sedation Scale (RASS): 0 - Alert and Calm Level of Consciousness is awake, alert, obeys commands, Oriented to person, place, time, situation, Appropriate for age. Neuro: Denies blurred vision dizziness, headache. Cardiovascular: Heart tones S1 S2 present Capillary refill < 3 seconds Rhythm is regular. Cardiovascular:. Respiratory: Airway is patent Respiratory effort is even, unlabored, Respiratory pattern is regular, symmetrical, Breath sounds are clear bilaterally. GI: Abdomen is round non-distended. : No signs and/or symptoms were reported regarding the genitourinary system. EENT: No signs and/or symptoms were reported regarding the EENT system. Derm: Skin is pink, warm \\T\\ dry. Musculoskeletal: Range of motion: limited in right ankle. 17:05 Reassessment: No changes from previously documented assessment. General: Behavior is mb9 calm, cooperative, appropriate for age. Pain: Denies pain. Neuro: Level of Consciousness is awake, alert, obeys commands, Oriented to person, place, time, situation, Appropriate for age. Cardiovascular: Rhythm is regular. Respiratory: Airway is patent. Derm: Skin is pink, warm \\T\\ dry. 18:35 Reassessment: Patient states feeling better. Patient states symptoms have improved. mb9 Neuro: Level of Consciousness is awake, alert, obeys commands. Cardiovascular: Rhythm is regular. Respiratory: Airway is patent. Derm: Skin is pink, warm \\T\\ dry. Vital Signs: 15:17 BP 179 / 101; Pulse 73; Resp 14; Temp 97.1; Pulse Ox 100% on R/A; Pain 0/10; mb9 16:04 BP 186 / 89; Pulse 71; Resp 18; Pulse Ox 100% on R/A; Pain 0/10; mb9 17:04 BP 168 / 100; Pulse 67; Resp 18; Pulse Ox 100% on R/A; Pain 0/10; mb9 18:35 BP 179 / 98; Pulse 74; Resp 17; Pulse Ox 100% on R/A; mb9 ED Course: 15:17 Patient arrived in ED. mb9 15:21 Triage completed. mb9 15:22 Waqar Casiano MD is Attending Physician. rn 15:24 Arm band placed on. mb9 15:24 Placed in gown. Bed in low position. Call light in reach. Side rails up X 1. Client mb9 placed on continuous cardiac and pulse oximetry monitoring. NIBP monitoring applied. surveillance monitor on. 15:40 Inserted saline lock: 20 gauge in right forearm, using aseptic technique. Blood mb9 collected. 15:40 EKG done, by ED staff, reviewed by Waqar Casiano MD. mb9 15:44 Kelli Chacko RN is Primary Nurse. mb9 16:03 Phosphorus Sent. mb9 16:03 BNP Sent. mb9 16:03 Protime (+inr) Sent. mb9 16:03 Ptt, Activated Sent. mb9 16:03 Basic Metabolic Panel Sent. mb9 16:03 CBC with Diff Sent. mb9 16:07 XRAY Chest (1 view) In Process Unspecified. EDMS 18:39 No provider procedures requiring assistance completed. IV discontinued, intact, mb9 bleeding controlled, No redness/swelling at site. Pressure dressing applied. Administered Medications: 06:02 Drug: Metoprolol TARTRATE 50 mg Route: PO; mb9 17:26 Follow up: Response: No adverse reaction mb9 16:00 Drug: Norvasc (amlodipine) 10 mg Route: PO; mb9 17:26 Follow up: Response: No adverse reaction mb9 Medication: 15:24 VIS not applicable for this client. mb9 Outcome: 17:36 Discharge ordered by . rn 18:39 Discharged to Rehab Facility mb9 18:39 Condition: stable 18:39 Discharge instructions given to patient, Instructed on discharge instructions, Demonstrated understanding of instructions, follow-up care. 18:40 Patient left the ED. mb9 Signatures: Dispatcher [employer] EDMS CasianoWaqar MD MD rn Breneman, Mary Beth, RN RN mb9
--- NOTE | 2022-07-14 17:37 | EDPHYS ---
Physician Documentation [facility] Name: Nikita Bartlett Age: 46 yrs Sex: Male : 1975 Arrival Date: 07/14/2022 Time: 15:17 Bed 20 Private MD: ED Physician Waqar Casiano HPI: 07/14 17:13 This 46 yrs old Male presents to ER via EMS with complaints of HTN. rn 17:13 The patient has elevated blood pressure and discovered this dialysis. Onset: The rn symptoms/episode began/occurred at an unknown time. Modifying factors: The symptoms are aggravated by not taking his meds today. Associated signs and symptoms: Pertinent negatives: chest pain, dizziness, visual changes, vomiting, weakness. Severity of symptoms: At its worst the blood pressure was moderate, in the emergency department the blood pressure is unchanged. The patient has experienced similar episodes in the past. The patient has not recently seen a physician. Pt reports is ESRD, just had dialysis today, reached limit of rehab days at [facility] and discharged today, didn't have anywhere else to go so called 911 hoping he would get admitted here. Has girlfriend at home but states wheelchair does not fit in bedroom or bathroom. He completed dialysis today. No acute complaints. Didn't take his BP meds today. . Historical: - Allergies: 15:21 No Known Allergies; mb9 - Home Meds: 15:21 olmesartan Oral [Active]; amlodipine oral [Active]; Aspirin Oral [Active]; atorvastatin mb9 Oral [Active]; doxyzosen [Active]; Glimepiride Oral [Active]; Metoprolol Tartrate Oral [Active]; Furosemide Oral [Active]; - PMHx: 15:21 Diabetes - NIDDM; Dialysis; Hypertension; osteomyelitis; Anemia; "Leaking heart valve"; mb9 Enlarged Heart; - PSHx: 15:21 Ulcer repair; mb9 - Immunization history:: Adult Immunizations up to date. - Social history:: Smoking status: Patient denies any tobacco usage or history of. - Family history:: not pertinent. - Hospitalizations: : No recent hospitalization is reported. ROS: 17:13 Constitutional: Negative for fever, chills, and weight loss, Eyes: Negative for injury, rn pain, redness, and discharge, Neck: Negative for injury, pain, and swelling, Cardiovascular: Negative for chest pain, palpitations, and edema, Respiratory: Negative for shortness of breath, cough, wheezing, and pleuritic chest pain, Abdomen/GI: Negative for abdominal pain, nausea, vomiting, diarrhea, and constipation, Back: Negative for injury and pain, MS/Extremity: Negative for injury and deformity, Skin: Negative for injury, rash, and discoloration, Neuro: Negative for headache, weakness, numbness, tingling, and seizure. Exam: 16:10 ECG was reviewed by the Attending Physician. rn 17:13 Constitutional: This is a well developed, well nourished patient who is awake, alert, rn and in no acute distress. Head/Face: Normocephalic, atraumatic. Cardiovascular: Regular rate and rhythm. No pulse deficits. Respiratory: No increased work of breathing, no retractions or nasal flaring. Abdomen/GI: Soft, non-tender Skin: Warm, dry MS/ Extremity: Pulses equal, no cyanosis. Neuro: Awake and alert, GCS 15 Vital Signs: 15:17 BP 179 / 101; Pulse 73; Resp 14; Temp 97.1; Pulse Ox 100% on R/A; Pain 0/10; mb9 16:04 BP 186 / 89; Pulse 71; Resp 18; Pulse Ox 100% on R/A; Pain 0/10; mb9 17:04 BP 168 / 100; Pulse 67; Resp 18; Pulse Ox 100% on R/A; Pain 0/10; mb9 18:35 BP 179 / 98; Pulse 74; Resp 17; Pulse Ox 100% on R/A; mb9 MDM: 15:22 Patient medically screened. rn 17:32 Differential diagnosis: Malignant HTN, ESRD, pulmonary edema, abnormal electrolytes. rn Data reviewed: vital signs, nurses notes, lab test result(s), EKG, and as a result, I will discharge patient. Test interpretation: by ED physician or midlevel provider: plain radiologic studies, Independent interpretation of CXR by me: no acute abnormality. Counseling: I had a detailed discussion with the patient and/or guardian regarding: the historical points, exam findings, and any diagnostic results supporting the discharge/admit diagnosis, lab results, radiology results, the need for outpatient follow up, to return to the emergency department if symptoms worsen or persist or if there are any questions or concerns that arise at home. Response to treatment: the patient's symptoms have mildly improved after treatment, and as a result, I will discharge patient. Special discussion: I discussed with the patient/guardian in detail that at this point there is no indication for admission to the hospital. It is understood, however, that if the symptoms persist or worsen the patient needs to return immediately for re-evaluation. ED course: Discussed case and care with social service agency director upstairs, I was told that our administration called [facility] administration and they agreed to take him back. Discussed care with both Dr. Brizuela and Dr. Garibay, who both agree that there does not seem to be need for admission from their [id number]. Plan is to discharge to [facility]. Has f/u appt already scheduled with Dr. Brizuela. If wounds healing, can bear weight as long as he keeps off heel wound. . 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 . ED course: Care also complicated and hindered by SODH: patient without insurance and difficulty with wheelchair accommodations at home. . 07/14 15:32 Order name: CBC with Diff; Complete Time: 16:37 07/14 18:29 Interpretation: Normal except: HGB 12.1; HCT 35.5. rn 07/14 15:32 Order name: Basic Metabolic Panel; Complete Time: 16:37 rn 07/14 18:30 Interpretation: Normal except: CRE 3.91; K 3.1. rn 07/14 15:32 Order name: Protime (+inr); Complete Time: 16:37 rn 07/14 15:32 Order name: Ptt, Activated; Complete Time: 16:37 rn 07/14 15:32 Order name: BNP; Complete Time: 16:37 rn 07/14 18:30 Interpretation: Abnormal. rn 07/14 15:32 Order name: Phosphorus; Complete Time: 16:37 rn 07/14 18:30 Interpretation: Within normal limits. rn 07/14 15:32 Order name: IV Start; Complete Time: 16:03 rn 07/14 15:32 Order name: XRAY Chest (1 view); Complete Time: 16:37 rn 07/14 18:30 Interpretation: No acute disease. rn 07/14 15:32 Order name: Cardiac monitoring; Complete Time: 15:44 rn 07/14 15:32 Order name: O2 Sat Monitoring; Complete Time: 15:44 rn 07/14 15:34 Order name: EKG; Complete Time: 15:34 rn 07/14 15:34 Order name: EKG - Nurse/Tech; Complete Time: 16:03 rn EC:10 Rate is 66 beats/min. Rhythm is regular. QRS [place] is Normal. NH interval is normal. QRS rn interval is normal. QT interval is normal. No Q waves. T waves are Normal. No ST changes noted. Clinical impression: NSR w/ Non-specific ST/T Changes. Interpreted by me. Reviewed by me. Administered Medications: 06:02 Drug: Metoprolol TARTRATE 50 mg Route: PO; mb9 17:26 Follow up: Response: No adverse reaction mb9 16:00 Drug: Norvasc (amlodipine) 10 mg Route: PO; mb9 17:26 Follow up: Response: No adverse reaction mb9 Disposition Summary: 07/14/22 17:36 Discharge Ordered Location: Home rn Problem: chronic rn Symptoms: have improved rn Condition: Stable rn Diagnosis - Essential (primary) hypertension rn - End stage renal disease rn Followup: rn - With: Private Physician - When: As needed - Reason: Recheck today's complaints, Re-evaluation by your physician Discharge Instructions: - Discharge Summary Sheet rn - Hypertension, Adult rn - it intern - End-Stage Kidney Disease rn Forms: - Medication Reconciliation Form rn - Thank You Letter rn - Antibiotic pattern maker - Prescription Opioid Use rn Signatures: Dispatcher [employer] Waqar Donohue MD MD rn Breneman, Mary Beth RN RN mb9
[2022-07-14 19:27] VITALS: TEMP 97.1; O2SAT 100
[2022-07-14 19:42] VITALS: BP 168/100
--- NOTE | 2022-07-15 16:49 | EKG ---
Test Date: 2022-07-14 Test Time: 15:54:42 Talent Acquisition Assistant: MB MEASUREMENT RESULTS: Intervals: Rate: 66 OH: 154 QRSD: 98 QT: 430 QTc: 450 [place]: P: 64 OH: 154 QRS: 33 T: -11 INTERPRETIVE STATEMENTS: Normal sinus rhythm Left ventricular hypertrophy with repolarization abnormality Abnormal ECG Compared to ECG 06/20/2022 22:12:59 Accelerated junctional rhythm no longer present Left-axis deviation no longer present Electronically Signed On 07-15-22 16:47:37 SWEATER DESIGNER by Hayden Duque
== END 2022-07-14 18:40 | disposition home or self-care (01) ==
LOC: ER 15:08
DX: I12.0 Hypertensive chronic kidney disease with stage 5 chronic kidney disease or end stage renal disease (principal); Z99.2 Dependence on renal dialysis; Z79.82 Long term (current) use of aspirin
CPT/HCPCS: 36415; 71045; 80048; 83880; 84100; 85025; 85610; 85730; 93005; 99284

== ENCOUNTER 2022-07-16 15:24 | Inpatient (IN) | payer OTHER ==
--- OUTSIDE RECORDS SUMMARY | 2022-07-16 15:30 | XMS REPORT | Continuity of Care Document ---
:1975 Author Organization [facility] t Address [address] [place] [address] Care Team Providers Name Role Phone Todd Davis DO [facility] Primary Care Physician [phone] Todd Davis Attending Clinician Unavailable DEBRA TREJO Attending Clinician Unavailable TIMOTHY EARL S Attending Clinician Unavailable Timothy Prince S Attending Clinician DELVIN MULLINS Attending Clinician Unavailable MD DELVIN MULLINS Attending Clinician Unavailable GUILHERME GONCALVES Attending Clinician Unavailable Debra Trejo MD Attending Clinician Only, Adc Test Attending Clinician Unavailable Doctor Unassigned, [place] Attending Clinician Unavailable Gramm Leona BLANKENSHIP Attending Clinician DEBRA TREJO Admitting Clinician Unavailable TIMOTHY EARL S Admitting Clinician Unavailable DELVIN MULLINS Admitting Clinician Unavailable MD DELVIN MULLINS Admitting Clinician Unavailable Debra Trejo MD Admitting Clinician Payers Payer Name Policy Type Policy Effective Date Expiration Date Sour ce Number MEDICARE PART A [id number] 2019 \\T\\ B 00:00:00 CONTINENTAL [id number] 2020 BENEFITS 00:00:00 MEDICARE KATIE LEE [id number] 2019 [facility] 00:[facility]:00 - [facility] HEALTH [id number] SELECT 00:00:00 Problems Condition Condition Condition Status Onset Resolution Last Treating Co mments Source Name Details Category Date Date Treatment Clinician Date ESRD (end ESRD (end Disease Active Overview: Methodi stage stage 9- Formattin st renal renal 00:00: g of this Hospita disease) disease) 00 note l might be different from the original. Added automatic ally from request for surgery [id number] Anemia of Anemia of Disease Active Met [...] catheter, for initial initial surgery encounter encounter [id number] Infection Infection Disease Active Overview: Univers associated associated 01-27 Formattin ity of with with 00:00: g of this [place] peritoneal peritoneal 00 note Me dical dialysis dialysis might be Bran catheter, catheter, different initial initial from the encounter encounter original. Added automatic ally from request for surgery [id number] Obesity Obesity Disease Active Methodi (BMI (BMI -20 st 30-39.9) 30-39.9) 00:00: Hospit a 00 l ESRD (end ESRD (end Disease Active Overview: Univers stage stage 9-06 Formattin ity of renal renal 00:00: g of this [place] disease) disease) 00 note Medica l on on might be Branch dialysis dialysis different from the original. Added automatic ally from request for surgery [id number] Tobacco Tobacco Disease Active Univers use use 07-16 ity of disorder disorder 00:00: [place] 00 Medical Branch Essential Essential Disease Active Met hodi hypertensi hypertensi 07-16 st on on 00:00: Hospita 00 l Hypertrigl Hypertrigl Disease Active M ethodi yceridemia yceridemia 07-16 00:00: Hospita 00 l [id number] Kidney Problem Active Common disease [facility] [id number] LVH (left Problem Active Comm on ventricula Spirit r - [facility] hypertroph St y) [facility] [id number] Mixed Problem Active Common hyperlipid Spirit emia - [facility] [id number] Type 2 Problem Active Common diabetes Spirit mellitus - [facility] without St complicati [facility] on, Medical without Center long-term current use of insulin [id number] Vitamin D Problem Active Comm on deficiency [facility] [id number] Dependence Problem Active Co mmon on renal [facility] dialysis - [facility] [id number] Abnormal Problem Active Commo n gait [facility] - [facility] [id number] HTN, goal Problem Active Comm on below Spirit 130/80 - [facility] [id number] Primary Problem Active Comm on osteoarthr Spirit itis of [facility] right knee [facility] [id number] Seasonal Problem Active Comm on allergies Spirit - [facility] [id number] Morbid Problem Active Common (severe) Spirit obesity - [facility] due to [facility] Allergies, Adverse Reactions, Alerts Allergy Allergy Status Severity Reaction(s) Onset Inactive Treating Comm ents Source Name Type Date Date Clinician NO KNOWN Drug Active Univers ALLERGIE Class ity of S [facility] Family History Family Member Diagnosis Comments Start Date Stop Date Source Natural father Diabetes [facility] Natural father [facility] Natural mother Diabetes [facility] Natural mother Hypertension [facility] Social History Social Habit Start Date Stop Date Quantity Comments Source History of Tobacco [facility] - Use [facility] History [facility] University o f Alcohol Frequency [facility] edical Branch History [facility] University o f Alcohol Std Drinks [facility] History [facility] University o f Alcohol Binge [facility] [place] Exposure to 2022-02-02 2022-02-12 Unable to assess Univers ity of SARS-CoV-2 (event) 00:00:00 10:16:00 [facility] Alcohol intake 2020-03-17 2020-03-17 Ex-drinker [facility] 00:00:00 00:00:00 (finding) Hospital Cigarette 2020-03-10 2020-03-10 [facility] pack-years 00:00:00 00:00:00 Hospital Cigarettes smoked 2020-03-10 2020-03-[address] current (pack per 00:00:00 00:00:00 Hospita l day) - Reported Tobacco use and 2019-03-25 2019-03-25 User of smokeless Un iversity of exposure 00:00:00 00:00:00 tobacco [facility] Tobacco Comment 2016-07-16 2016-07-16 1-2 packs daily Univ ersity of 00:00:00 00:00:00 sometimes; other [facility] dical times could be 1 Branch week. ; chewing tobacco - 25 years; 1 can every other day. Alcohol Comment 2016-07-16 2016-07-16 occasional Universit y of 00:00:00 00:00:00 [facility] Sex Ass[birth year] At [birth year] Judaism 00:00:00 00:00:00 Hospital Smoking Status Start Date Stop Date Source Former Smoker 2020-06-15 00:00:00 2020-06-15 00:00:00 [facility] S [facility] - [facility] Ce nter Current every day 2018-01-06 00:00:00 [facility] smoker [facility] Medications Ordered Filled Start Stop Current [...] by: ED PROVIDER clindamycin 0 202- No [id number] 450mg Take 3 Univers 150 mg 02-12 capsules ity of capsule 00:00: 04:59 by mouth [place] 00 :00 in the Medical morning Branch [...] Yes Inject Methodi glargine,hu 0-20 under the [facility].rec.anlog 10:39: skin. Hospi ta (TOUJEO MAX [...] Yes Inject Methodi glargine,hu 0-20 under the [facility].rec.anlog 10:39: skin. Hospi ta (TOUJEO MAX 55 l U-300 SOLOSTAR SUBQ) aspirin 81 2019- Yes Chew. Method i mg chewable 0-20 [...] Yes Inject Methodi glargine,hu 0-20 under the [facility].rec.anlog 10:39: skin. Hospi ta (TOUJEO MAX [...] 10:39: daily. Hospita tablet 55 l cholecalcif 2020 Yes Take by Met hodi chadd, 0-[address] vitamin D3, 10:39: Hospit a (Vitamin 55 l D3) 125 mcg (5,000 unit) tablet insulin 2019-07 Yes Inject Methodi glargine,hu 0-[address] m.rec.anlog 10:39: skin. Hospi ta (TOUJEO MAX 55 l U-300 SOLOSTAR SUBQ) aspirin 81 2019-07 Yes Chew. Method i mg chewable 0-20 st tablet 10:39: Hospita 55 l liraglutide 2020- Yes 1.2mg QD Inject 1.2 Methodi (VICTOZA) [...] ASPIRIN 7-24 mouth. ity of ORAL 20:26: [address] Cholecalcif 2020-0 Yes Take by Uni vers chadd, 7-24 mouth. ity of Vitamin D3, 20:26: [place] (VITAMIN Medical D3) 5,000 Branch unit tablet loratadine 2020-0 Yes 10mg Take 10 mg U nivers (CLARITIN) 7-24 by mouth ity o f 10 mg 20:26: daily. [place] [address] Medical Branch liraglutide 2020-0 Yes inject Univ ers (VICTOZA 7-24 under the ity of 2-[place]) 20:26: skin. [place] [address] Medical Branch BABY 2020-0 Yes Take by Univers ASPIRIN 7-24 mouth. ity of ORAL 20:26: [address] Cholecalcif 2020-0 Yes Take by Uni vers chadd, 7-24 mouth. ity of Vitamin D3, 20:26: [place] (VITAMIN 37 Medical D3) 5,000 Branch unit tablet loratadine 2020-0 Yes 10mg Take 10 mg U nivers (CLARITIN) 7-24 by mouth ity o f 10 mg 20:26: daily. [place] [address] Medical Branch liraglutide 2020-0 Yes inject Univ ers (VICTOZA 7-24 under the ity of 2-[place]) 20:26: skin. [address] Branch BABY 2020-0 Yes Take by Univers ASPIRIN 7-24 mouth. ity of ORAL 20:26: [address] Cholecalcif 2020-0 Yes Take by Uni vers chadd, 7-24 mouth. ity of Vitamin D3, 20:26: [place] (VITAMIN Medical D3) 5,000 Branch unit tablet loratadine 2020-0 Yes 10mg Take 10 mg U nivers (CLARITIN) 7-24 by mouth ity o f 10 mg 20:26: daily. [place] tablet Medical [place] liraglutide 2020-0 Yes inject Univ ers (VICTOZA 7-24 under the ity of 2-[place]) 20:26: skin. [address] lactated 2020-0 Yes 1000mL at 75 [...] (N/V), PACU BABY 2020-0 Yes Take by Univers ASPIRIN 7-24 mouth. ity of ORAL 19:29: [address] Cholecalcif 2020-0 Yes Take by Uni vers chadd, 7-24 mouth. ity of Vitamin D3, 19:29: [place] (VITAMIN Medical D3) 5,000 Branch unit tablet loratadine 2020-0 Yes 10mg Take 10 mg U nivers (CLARITIN) 7-24 by mouth ity o f 10 mg 19:29: daily. [place] tablet 27 Medical Branch liraglutide 2020-0 Yes inject Univ ers (VICTOZA 7-24 under the ity of 2-[place]) 19:29: skin. [place] 27 Medical Branch lactated 2020-0 2020- No 1000mL at 20 Unive rs ringers IV 7-24 07-24 mL/hr, ity of infusion 16:00: 16:03 1,000 mL, [place] as 1,000 mL 00 :00 IV Medical Infusion, Branch ONCE, 1 dose, Sat01/29/20 at 1100, Routine, DSU Pre-op ceFAZolin 2020-0 Yes 1000mg 1,000 mg, U nivers (ANCEF) 7-24 IV ity of 1,000 mg in 15:30: Piggyback, [place] NaCl 0.9% 08 O.R. Medical (NS) 50 mL HOLDING Branch MINI-BAG ONCE, 1 dose, Starting Sat01/29/20 at 1030, Until Discontinu ed, 50 mL, DSU Pre-op
Reason for Anti-Infec tive: Surgical Prophylaxi s
Surgi stacey Prophylaxi s: Abdominal< br>Duratio n of therapy: within 24 hours of surgery BABY 2020-0 Yes Take by Univers ASPIRIN 7-24 mouth. ity of ORAL 15:26: [place] [address] Medical Branch Cholecalcif 2020-0 Yes Take by Uni vers chadd, 7-24 mouth. ity of Vitamin D3, 15:26: [place] (VITAMIN 37 Medical D3) 5,000 Branch unit tablet loratadine 2020-0 Yes 10mg Take 10 mg U nivers (CLARITIN) 7-24 by mouth ity o f 10 mg 15:26: daily. [place] tablet 37 Medical Branch liraglutide 2020-0 Yes inject Univ ers (VICTOZA 7-24 under the ity of 2-[place]) 15:26: skin. [place] [address] Medical Branch BABY 2020-0 Yes Take by Univers ASPIRIN 7-24 mouth. ity of ORAL 13:26: [place] [address] Medical Branch Cholecalcif 2020-0 Yes Take by Uni vers chadd, 7-24 mouth. ity of Vitamin D3, 13:26: [place] (VITAMIN 51 Medical D3) 5,000 Branch unit tablet loratadine 2020-0 Yes 10mg Take 10 mg U nivers (CLARITIN) 7-24 by mouth ity o f 10 mg 13:26: daily. [place] tablet 51 Medical Branch liraglutide 2020-0 Yes inject Univ ers (VICTOZA 7-24 under the ity of 2-[place]) 13:26: skin. [place] [address] Medical Branch Cholecalcif 2020-0 Yes Take by Uni vers chadd, 7- mouth. ity of Vitamin D3, 18:22: [place] (VITAMIN 12 Medical D3) 5,000 Branch unit tablet loratadine 2020-0 Yes 10mg Take 10 mg U nivers (CLARITIN) 7-23 by mouth ity o f 10 mg 18:22: daily. [place] tablet 12 Medical Branch liraglutide 2020-0 Yes inject Univ ers (VICTOZA 7-23 under the ity of 2-[place]) 18:22: skin. [place] [address] Medical Branch Cholecalcif 2020-0 Yes Take by Uni vers chadd, 7- mouth. ity of Vitamin D3, 18:22: [place] (VITAMIN 12 Medical D3) 5,000 Branch unit tablet loratadine 2020-0 Yes 10mg Take 10 mg U nivers (CLARITIN) 7-23 by mouth ity o f 10 mg 18:22: daily. [place] tablet 12 Medical Branch liraglutide 2020-0 Yes inject Univ ers (VICTOZA 7-23 under the ity of 2-[place]) 18:22: skin. [place] [address] Medical Branch fluconazole 2020-0 Yes 200mg Take [...] by ity of tablet 00:00: mouth [place] daily. Medical Branch VICTOZA 2020-0 2020- No [...] 7-[address] [facility] tablet 00:00: [facility] glimepiride 2020-0 Yes 4mg Take 4 mg M ethodi (AMARYL) 4 7-[address] MG tablet 00:00: [facility] 00 l glimepiride 2020-0 Yes 4mg Take 4 mg U nivers 4 mg tablet 7-13 by mouth ity of 00:00: daily. [place] [facility] Branch glimepiride 2020-0 Yes 4mg Take 4 mg U nivers 4 mg tablet 7-13 by mouth ity of 00:00: daily. [place] [facility] Branch glimepiride 2020-0 Yes 4mg Take 4 mg U nivers 4 mg tablet 7-13 by mouth ity of 00:00: daily. [place] [facility] Branch glimepiride 2020-0 Yes 4mg Take 4 mg U nivers 4 mg tablet 7-13 by mouth ity of 00:00: daily. [place] [facility] Branch glimepiride 2020-0 Yes 4mg Take 4 mg U nivers 4 mg tablet 7-13 by mouth ity of 00:00: daily. [address] Branch glimepiride 2020-0 Yes 4mg Take 4 mg U nivers 4 mg tablet 7-13 by mouth ity of 00:00: daily. [address] Branch glimepiride 2020-0 Yes 4mg Take 4 [...] Units to ity of ointment 00:00: affected [place] area(s) Medical daily. Branch Apply a nickel [...] Units to ity of ointment 00:00: affected [place] 00 area(s) Medical daily. Branch Apply a [...] Units to ity of ointment 00:00: affected [place] 00 area(s) Medical daily. Branch Apply a [...] (PHOSLO) 00 l 667 mg capsule BABY 2018- Yes Take by Univers ASPIRIN 2-30 mouth. ity of ORAL 19:59: [place] [address] Medical Branch Cholecalcif 2018- Yes Take by Uni vers chadd, 2-30 mouth. ity of Vitamin D3, 19:59: [place] (VITAMIN Medical D3) 5,000 Branch unit tablet loratadine 2018-07 Yes 10mg Take 10 mg U nivers (CLARITIN) 2-30 by mouth ity o f 10 mg 19:59: daily. [place] [address] Medical Branch liraglutide 2018-07 Yes inject Univ ers (VICTOZA 2-30 under the ity of 2-[place]) 19:59: skin. [address] BABY 2018-07 Yes Take by Univers ASPIRIN 2-30 mouth. ity of ORAL 19:59: [address] Cholecalcif 2018-07 Yes Take by Uni vers chadd, 2-30 mouth. ity of Vitamin D3, 19:59: [place] (VITAMIN [address] [place] [address] D3) 5,000 Branch unit tablet loratadine 2018-07 Yes 10mg Take 10 mg U nivers (CLARITIN) 2-30 by mouth ity o f 10 mg 19:59: daily. [address] liraglutide 2018-07 Yes inject Univ ers (VICTOZA 2-30 under the ity of 2-[place]) 19:59: skin. [address] BABY 2018-07 Yes Take by Univers ASPIRIN 2-30 mouth. ity of ORAL 19:59: [address] BABY 2018-07 Yes Take by Univers ASPIRIN 2-30 mouth. ity of ORAL 19:59: [address] traMADol 50 2018-07 Yes [id number] 50mg Take 1 Univers mg tablet 2-30 tablet by ity o f 00:00: mouth [place] 00 every 6 Medical (six) Branch hours as needed for Pain (scale 7-10). traMADol 50 2018-07 Yes [id number] 50mg Take 1 Univers mg tablet 2-30 tablet by ity o f 00:00: mouth [place] 00 every 6 Medical (six) Branch hours as needed for Pain (scale 7-10). traMADol 50 2018-07 Yes [id number] 50mg Take 1 Univers mg tablet 2-30 tablet by ity o f 00:00: mouth [place] 00 every 6 Medical (six) Branch hours as needed for Pain (scale 7-10). traMADol 50 2018-07 Yes [id number] 50mg Take 1 Univers mg tablet 2-30 tablet by ity o f 00:00: mouth [place] 00 every 6 Medical (six) Branch hours as needed for Pain (scale 7-10). traMADol 50 2018-07 Yes [id number] 50mg Take 1 Univers mg tablet 2-30 tablet by ity o f 00:00: mouth [place] 00 every 6 Medical (six) Branch hours as needed for Pain (scale 7-10). traMADol 50 2018-07 2020- No [id number] 50mg Take 1 Univers mg tablet 2-30 07-24 tablet by ity of 00:00: 00:00 mouth [place] 00 :00 every 6 Medical (six) Branch hours as needed for Pain (scale 7-10). [place] 2018-07 Yes Todd 1 pen Common /16" 3/16" 0-02 [place] needle Spirit 00:00: with - [facility] 00 [facility] [place] 2018-07 No QD Pen 09/20" 31G X 09/20" 31G X 0-02 [place] 5 MM 5 MM 00:00: 16" 31G 00 X 5 MM BABY Yes Take by Univers ASPIRIN 9-20 mouth. ity of ORAL 18:03: [place] [address] Medical Branch Cholecalcif Yes Take by Uni vers chadd, -20 mouth. ity of Vitamin D3, 18:03: [place] (VITAMIN [address] [place] [address] D3) 5,000 Branch unit tablet loratadine Yes 10mg Take 10 mg U nivers (CLARITIN) -20 by mouth ity o f 10 mg 18:03: daily. [place] [address] Medical [place] liraglutide Yes inject Univ ers (VICTOZA 03-27 under the ity of 2-[place]) 18:03: skin. [place] [address] Medical Branch morpHINE 2018- Yes 4mg 4 mg, Slow Uni vers injection 4 - IV Push, ity of mg 16:25: Q5MIN PRN, [place] 03 3 doses, Medical Starting Branch 03/27/19 at 1125, Until Discontinu ed, Routine, Pain (scale 7-10), PACU FENTanyl PF 2018- Yes 50ug 50 mcg, Uni vers (SUBLIMAZE -20 Slow IV ity of (PF)) 16:25: Push, [place] injection 03 Q5MIN PRN, Medi stacey 50 [...] 03-27 Starting ity of e-pf 15:56: Fri [place] (SENSORCAIN 00 03/27/19 at Ca dical E 1056, Branch W/EPINEPHRI Until NE) 0.25 Discontinu %-1:200,000 ed, injection Routine, Intra-op lidocaine 2019-0 Yes PRN, Univers 1% (PF) 03-27 Starting ity of (XYLOCAINE) 15:34: Fri [place] injection 00 03/27/19 at [facility] 1034, Branch Until Discontinu ed, Routine, Intra-op insulin 2018-0 2019- No 5U 5 Units, Unive rs regular 03-27-20 IV Push, ity of human 15:00: 14:54 ONCE NOW, [place] (HUMULIN R) 00 :00 1 dose, Medic al injection 5 Fri Branch Units 03/27/19 at 1000, REYNALDO, DSU Pre-op NaCl 0.9% 2019-0 Yes 500mL at 20 Univer s (NS) IV 9-20 mL/hr, IV ity of infusion 13:45: Infusion, [place] 500 mL 00 CONTINUOUS Medical , Starting Branch Sat03/27/19 at 0845, Until Discontinu ed, Routine, DSU Pre-op acetaminoph 2019-0 Yes [id number] 1000mg Take 2 Univers en (TYLENOL 9-20 tablets by it y of EXTRA 00:00: mouth [place] STRENGTH) 00 every 8 Medical 500 mg (eight) Branch tablet hours as needed for Pain. traMADol 50 2019-0 Yes [id number] 50mg Take 1 Univers mg tablet 9-20 tablet by ity o f 00:00: mouth [place] 00 every 6 Medical (six) Branch hours as needed for Pain (scale 4-6). acetaminoph 2019-0 Yes [id number] 1000mg Take 2 Univers en (TYLENOL 9-20 tablets by it y of EXTRA 00:00: mouth [place] STRENGTH) 00 every 8 Medical 500 mg (eight) Branch tablet hours as needed for Pain. traMADol 50 2019-0 Yes [id number] 50mg Take 1 Univers mg tablet 9-20 tablet by ity o f 00:00: mouth [place] 00 every 6 Medical (six) Branch hours as needed for Pain (scale 4-6). acetaminoph 2019-0 Yes [id number] 1000mg Take 2 Univers en (TYLENOL 9-20 tablets by it y of EXTRA 00:00: mouth [place] STRENGTH) 00 every 8 Medical 500 mg (eight) Branch tablet hours as needed for Pain. traMADol 50 2019-0 Yes [id number] 50mg Take 1 Univers mg tablet 9-20 tablet by ity o f 00:00: mouth [place] 00 every 6 Medical (six) Branch hours as needed for Pain (scale 4-6). acetaminoph 2019-0 Yes [id number] 1000mg Take 2 Univers en (TYLENOL 9-20 tablets by it y of EXTRA 00:00: mouth [place] STRENGTH) 00 every 8 Medical 500 mg (eight) Branch tablet hours as needed for Pain. traMADol 50 2019-0 Yes [id number] 50mg Take 1 Univers mg tablet 9-20 tablet by ity o f 00:00: mouth [place] 00 every 6 Medical (six) Branch hours as needed for Pain (scale 4-6). acetaminoph 2019-0 Yes [id number] 1000mg Take 2 Univers en (TYLENOL 9-20 tablets by it y of EXTRA 00:00: mouth [place] STRENGTH) 00 every 8 Medical 500 mg (eight) Branch tablet hours as needed for Pain. traMADol 50 2019-0 Yes [id number] 50mg Take 1 Univers mg tablet 9-20 tablet by ity o f 00:00: mouth [place] 00 every 6 Medical (six) Branch hours as needed for Pain (scale 4-6). acetaminoph 2019-0 Yes [id number] 1000mg Take 2 Univers en (TYLENOL 9-20 tablets by it y of EXTRA 00:00: mouth [place] STRENGTH) 00 every 8 Medical 500 mg (eight) Branch tablet hours as needed for Pain. traMADol 50 2019-0 Yes [id number] 50mg Take 1 Univers mg tablet 9-20 tablet by ity o f 00:00: mouth [place] 00 every 6 Medical (six) Branch hours as needed for Pain (scale 4-6). acetaminoph 2019-0 Yes [id number] 1000mg Take 2 Univers en (TYLENOL 9-20 tablets by it y of EXTRA 00:00: mouth [place] STRENGTH) 00 every 8 Medical 500 mg (eight) Branch tablet hours as needed for Pain. traMADol 50 2019-0 Yes [id number] 50mg Take 1 Univers mg tablet 9-20 tablet by ity o f 00:00: mouth [place] 00 every 6 Medical (six) Branch hours as needed for Pain (scale 4-6). acetaminoph 2019-0 Yes [id number] 1000mg Take 2 Univers en (TYLENOL 9-20 tablets by it y of EXTRA 00:00: mouth [place] STRENGTH) 00 every 8 Medical 500 mg (eight) Branch tablet hours as needed for Pain. traMADol 50 2018-0 Yes [id number] 50mg Take 1 Univers mg tablet 9-20 tablet by ity o f 00:00: mouth [place] 00 every 6 Medical (six) Branch hours as needed for Pain (scale 4-6). acetaminoph 2019-0 Yes [id number] 1000mg Take 2 Univers en (TYLENOL 9-20 tablets by it y of EXTRA 00:00: mouth [place] STRENGTH) 00 every 8 Medical 500 mg (eight) Branch tablet hours as needed for Pain. traMADol 50 2019-0 Yes [id number] 50mg Take 1 Univers mg tablet 9-20 tablet by ity o f 00:00: mouth [place] 00 every 6 Medical (six) Branch hours as needed for Pain (scale 4-6). acetaminoph 2019-0 Yes [id number] 1000mg Take 2 Univers en (TYLENOL 9-20 tablets by it y of EXTRA 00:00: mouth [place] STRENGTH) 00 every 8 Medical 500 mg (eight) Branch tablet hours as needed for Pain. traMADol 50 2019-0 Yes [id number] 50mg Take 1 Univers mg tablet 9-20 tablet by ity o f 00:00: mouth [place] 00 every 6 Medical (six) Branch hours as needed for Pain (scale 4-6). acetaminoph 2019-0 Yes [id number] 1000mg Take 2 Univers en (TYLENOL 9-20 tablets by it y of EXTRA 00:00: mouth [place] STRENGTH) 00 every 8 Medical 500 mg (eight) Branch tablet hours as needed for Pain. traMADol 50 2019-0 Yes [id number] 50mg Take 1 Univers mg tablet 9-20 tablet by ity o f 00:00: mouth [place] 00 every 6 Medical (six) Branch hours as needed for Pain (scale 4-6). ceFAZolin Yes 1000mg Univer s (ANCEF) 9-16 ity of 1,000 mg in 14:00: [place] NaCl 0.9% 00 Medical (NS) 50 mL Branch MINI-BAG ceFAZolin 0 Yes 1000mg Univer s (ANCEF) 9-16 ity of 1,000 mg in 14:00: [place] NaCl 0.9% 00 Medical (NS) 50 mL Branch MINI-BAG ceFAZolin Yes 1000mg Univer s (ANCEF) 9-16 ity of 1,000 mg in 14:00: [place] NaCl 0.9% 00 Medical (NS) 50 mL Branch MINI-BAG BABY Yes Take by Univers ASPIRIN 9-05 mouth. ity of ORAL 19:19: [place] [address] Medical Branch Cholecalcif Yes Take by Uni vers chadd, 9-05 mouth. ity of Vitamin D3, 19:19: [place] (VITAMIN 49 Medical D3) 5,000 Branch unit tablet loratadine Yes 10mg Take 10 mg U nivers (CLARITIN) 905 by mouth ity o f 10 mg 19:19: daily. [place] tablet 49 Medical Branch BABY Yes Take by Univers ASPIRIN 9-05 mouth. ity of ORAL 19:19: [place] [address] Medical Branch Cholecalcif Yes Take by Uni vers chadd, 9-05 mouth. ity of Vitamin D3, 19:19: [place] (VITAMIN 49 Medical D3) 5,000 Branch unit tablet loratadine Yes 10mg Take 10 mg U nivers (CLARITIN) 905 by mouth ity o f 10 mg 19:19: daily. [place] tablet 49 Medical Branch BABY Yes Take by Univers ASPIRIN 9-05 mouth. ity of ORAL 19:19: [place] [address] Medical Branch Cholecalcif Yes Take by Uni vers chadd, 9-05 mouth. ity of Vitamin D3, 19:19: [place] (VITAMIN 49 Medical D3) 5,000 Branch unit tablet loratadine Yes 10mg Take 10 mg U nivers (CLARITIN) 9-05 by mouth ity o f 10 mg 19:19: daily. [place] tablet 49 Medical Branch BABY Yes Take by Univers ASPIRIN 9-05 mouth. ity of ORAL 19:19: [place] [address] Medical Branch Cholecalcif Yes Take by Uni vers chadd, 9-05 mouth. ity of Vitamin D3, 19:19: [place] (VITAMIN 49 Medical D3) 5,000 Branch unit tablet loratadine Yes 10mg Take 10 mg U nivers (CLARITIN) 9-05 by mouth ity o f 10 mg 19:19: daily. [place] tablet 49 Medical Branch BABY Yes Take by Univers ASPIRIN 9-05 mouth. ity of ORAL 19:19: [place] [address] Medical Branch Cholecalcif Yes Take by Uni vers chadd, 9-05 mouth. ity of Vitamin D3, 19:19: [place] (VITAMIN 49 Medical D3) 5,000 Branch unit tablet loratadine Yes 10mg Take 10 mg U nivers (CLARITIN) 9-05 by mouth ity o f 10 mg 19:19: daily. [place] tablet 49 Medical Branch BABY Yes Take by Univers ASPIRIN 9-05 mouth. ity of ORAL 19:19: [place] [address] Medical Branch Cholecalcif Yes Take by Uni vers chadd, 9-05 mouth. ity of Vitamin D3, 19:19: [place] (VITAMIN 49 Medical D3) 5,000 Branch unit tablet loratadine Yes 10mg Take 10 mg U nivers (CLARITIN) 9-05 by mouth ity o f 10 mg 19:19: daily. [place] tablet 49 Medical Branch doxazosin Yes TAKE 1 [...] BY ity o f 00:00: MOUTH [place] TWICE A Medical DAY Branch atorvastati Yes [...] WITH SNACKS calcium 2019-0 Yes TAKE BY [facility] [place] [place] [address] 7-25 MOUTH 1 ity o f mg capsule 00:00[place] 3 [place] 00 TIMES A Medical DAY WITH Branch FOOD AND 1 CAPSUE 2 TIMES WITH SNACKS calcium 2019-0 Yes TAKE BY [facility] [place] [place] [address] 7-25 MOUTH 1 ity o f mg capsule 00:00: [place] 3 [place] 00 TIMES A Medical DAY WITH Branch FOOD AND 1 CAPSUE 2 TIMES WITH SNACKS calcium 2019-0 Yes TAKE BY [facility] [place] [place] 66 7-25 MOUTH 1 ity o f mg capsule 00:00: [place]LE 3 [place] TIMES A Medical DAY WITH Branch FOOD AND 1 CAPSUE 2 TIMES WITH SNACKS calcium 2019-0 Yes TAKE BY [facility] [place] [place] 66 7-25 MOUTH 1 ity o f mg capsule 00:00: [place]LE 3 [place] TIMES A Medical DAY WITH Branch FOOD AND 1 CAPSUE 2 TIMES WITH SNACKS calcium 2019-0 Yes TAKE BY [place] [address] 7-25 MOUTH 1 ity o f mg capsule 00:00: [place]LE 3 [place] TIMES A Medical DAY WITH Branch FOOD AND 1 CAPSUE 2 TIMES WITH SNACKS calcium 2019-0 Yes TAKE BY [place] [address] 7-25 MOUTH 1 ity o f mg capsule 00:00: [place]LE 3 [place] 00 TIMES A Medical DAY WITH Branch FOOD AND 1 CAPSUE 2 TIMES WITH SNACKS calcium 2019-0 Yes TAKE BY [facility] [place] [place] 66 7-25 MOUTH 1 ity o f mg capsule 00:00: CAP[place]LE 3 [place] 00 TIMES A Medical DAY WITH Branch FOOD AND 1 CAPSUE 2 TIMES WITH SNACKS calcium 2019-0 2020- No TAKE BY [place] [address] 01-29 MOUTH 1 ity of mg capsule 00:00: 00:00 CAPSULE 3 [place] :[place] TIMES A Medical DAY WITH Branch FOOD AND 1 CAPSUE 2 TIMES WITH SNACKS calcium 2019-0 2020- No TAKE BY [place] [address] 01-27 MOUTH 1 ity of mg capsule 00:00: 00:00 CAPSULE 3 [place] :[place] TIMES A Medical DAY WITH Branch FOOD AND 1 CAPSUE 2 TIMES WITH SNACKS calcium 2019-0 2020- No TAKE BY [place] [address] 01-29 MOUTH 1 ity of mg capsule [...] MOUTH TWICE A Medical DAY Branch furosemide 2019 Yes TAKE 1 Unive rs 40 mg [...] DAY Branch furosemide 2019-0 Yes TAKE 1 Metho di (LASIX) 40 7-[address] mg tablet 00:00: MOUTH [facility]osp[facility] 00 TWICE A l DAY metoprolol 2018-0 Yes TAKE 1 Metho di tartrate 7-[address] (LOPRESSOR) 00:00: MOUTH Hospi ta 50 mg 00 TWICE A l tablet DAY GLIMEPIRIDE 2017-07 Yes [id number] TAKE 1 Univers 2 mg tablet 1-19 TABLET BY ity of 00:00: MOUTH [place] 00 EVERY DAY Medical WITH Branch BREAKFAST GLIMEPIRIDE 2017-07 Yes [id number] TAKE 1 Univers 2 mg tablet 1-19 TABLET BY ity of 00:00: MOUTH [place] 00 EVERY DAY Medical WITH Branch BREAKFAST GLIMEPIRIDE 2017-07 Yes [id number] TAKE 1 Univers 2 mg tablet 1-19 TABLET BY ity of 00:00: MOUTH [place] 00 EVERY DAY Medical WITH Branch BREAKFAST GLIMEPIRIDE 2017-07 Yes [id number] TAKE 1 Univers 2 mg tablet 1-19 TABLET BY ity of 00:00: MOUTH [place] 00 EVERY DAY Medical WITH Branch BREAKFAST GLIMEPIRIDE 2017-07 Yes [id number] TAKE 1 Univers 2 mg tablet 1-19 TABLET BY ity of 00:00: MOUTH [place] 00 EVERY DAY Medical WITH Branch BREAKFAST GLIMEPIRIDE 2017-07 Yes [id number] TAKE 1 Univers 2 mg tablet 1-19 TABLET BY ity of 00:00: MOUTH [place] 00 EVERY DAY Medical WITH Branch BREAKFAST GLIMEPIRIDE 2017-07 Yes [id number] TAKE 1 Univers 2 mg tablet 1-19 TABLET BY ity of 00:00: MOUTH [place] 00 EVERY DAY Medical WITH Branch BREAKFAST GLIMEPIRIDE 2017-07 Yes [id number] TAKE 1 Univers 2 mg tablet 1-19 TABLET BY ity of 00:00: MOUTH [place] 00 EVERY DAY Medical WITH Branch BREAKFAST GLIMEPIRIDE 2017-07 Yes [id number] TAKE 1 Univers 2 mg tablet 1-19 TABLET BY ity of 00:00: MOUTH [place] 00 EVERY DAY Medical WITH Branch BREAKFAST GLIMEPIRIDE 2017-07 Yes [id number] TAKE 1 Univers 2 mg tablet 1-19 TABLET BY ity of 00:00: MOUTH [place] 00 EVERY DAY Medical WITH Branch BREAKFAST GLIMEPIRIDE 2017-07 Yes [id number] TAKE 1 Univers 2 mg tablet -19 TABLET BY ity of 00:00: MOUTH [place] 00 EVERY DAY Medical WITH Branch BREAKFAST GLIMEPIRIDE 2017-07 Yes [id number] TAKE 1 Univers 2 mg tablet -19 TABLET BY ity of 00:00: MOUTH [place] 00 EVERY DAY Medical WITH Branch BREAKFAST GLIMEPIRIDE 2017-07 2020- No [id number] TAKE 1 Univers 2 mg tablet 07-26- TABLET BY it y of 00:00: 00:00 MOUTH [place] 00 :00 EVERY DAY Medical WITH Branch BREAKFAST GLIMEPIRIDE 2017-07 2020- No [id number] TAKE 1 Univers 2 mg tablet 07-26- TABLET BY it y of 00:00: 00:00 MOUTH [place] 00 :00 EVERY DAY Medical WITH Branch BREAKFAST GLIMEPIRIDE 2017-07 2020- No [id number] TAKE 1 Univers 2 mg tablet 07-26- TABLET BY it y of 00:00: 00:00 MOUTH [place] 00 :00 EVERY DAY Medical WITH Branch BREAKFAST [facility] 5 2017-07 Yes [id number] TAKE 1 Univers mg tablet 1-12 TABLET BY ity o f 00:00: MOUTH [place] 00 EVERY DAY Medical Branch [facility] 5 2017- Yes [id number] TAKE 1 Univers mg tablet 1-12 TABLET BY ity o f 00:00: MOUTH [place] 00 EVERY DAY Medical Branch [facility] 5 2017- Yes [id number] TAKE 1 Univers mg tablet 1-12 TABLET BY ity o f 00:00: MOUTH [place] 00 EVERY DAY Medical Branch [facility] 2017- Yes [id number] TAKE 1 Univers mg tablet 1-12 TABLET BY ity o f 00:00: MOUTH [place] 00 EVERY DAY [facility]- Yes [id number] TAKE 1 Univers mg tablet 1-12 TABLET BY ity o f 00:00: MOUTH [place] 00 EVERY DAY Medical Branch [facility] 2017- Yes [id number] TAKE 1 Univers mg tablet 1-12 TABLET BY ity o f 00:00: MOUTH [place] 00 EVERY DAY Medical Branch [facility] 5 2017- Yes [id number] TAKE 1 Univers mg tablet 1-12 TABLET BY ity o f 00:00: MOUTH [place] 00 EVERY DAY Medical Branch [facility] 2017-07 Yes [id number] TAKE 1 Univers mg tablet 1-12 TABLET BY ity o f 00:00: MOUTH [place] 00 EVERY DAY [facility] 5 2017-07 Yes [id number] TAKE 1 Univers mg tablet 1-12 TABLET BY ity o f 00:00: MOUTH [place] 00 EVERY DAY [facility] 5 2017-07 Yes [id number] TAKE 1 Univers mg tablet 1-12 TABLET BY ity o f 00:00: MOUTH [place] EVERY DAY [facility] 5 2017-07 Yes [id number] TAKE 1 Univers mg tablet 1-12 TABLET BY ity o f 00:00: MOUTH [place] 00 EVERY DAY [facility] 5 2017-07 Yes [id number] TAKE 1 Univers mg tablet 1-12 TABLET BY ity o f 00:00: MOUTH [place] 00 EVERY DAY [facility] 5 2017-07 Yes [id number] TAKE 1 Univers mg tablet 1-12 TABLET BY ity o f 00:00: MOUTH [place] EVERY DAY [facility] 5 2017-07 Yes [id number] TAKE 1 Univers mg tablet 1-12 TABLET BY ity o f 00:00: MOUTH [place] 00 EVERY DAY [facility] 5 2017-07 Yes [id number] TAKE 1 Univers mg tablet 1-12 TABLET BY ity o f 00:00: MOUTH [place] 00 EVERY DAY [facility] 5 2017-07 Yes [id number] TAKE 1 Univers mg tablet 1-12 TABLET BY ity o f 00:00: MOUTH [place] 00 EVERY DAY [facility] 5 2017-07 Yes [id number] TAKE 1 Univers mg tablet 1-12 TABLET BY ity o f 00:00: MOUTH [place] 00 EVERY DAY [facility] 5 2017-07 Yes [id number] TAKE 1 Univers mg tablet 1-12 TABLET BY ity o f 00:00: MOUTH [place] 00 EVERY DAY [facility] 5 2017-07 Yes [id number] TAKE 1 Univers mg tablet 1-12 TABLET BY ity o f 00:00: MOUTH [place] 00 EVERY DAY [facility] 5 2017-07 Yes [id number] TAKE 1 Univers mg tablet 1-12 TABLET BY ity o f 00:00: MOUTH [place] 00 EVERY DAY Medical Branch amLODIPine 2017- Yes 10mg Take 10 mg M ethodi (NORVASC) 7-[address] 10 mg 00:00: Hospita tablet 00 l amLODIPine 2017-0 Yes 10mg Take 10 mg M ethodi (NORVASC) 7-[address] 10 mg 00:00: Hospita tablet 00 l amLODIPine 2017-0 Yes 10mg Take 10 mg M ethodi (NORVASC) 7-[address] 10 mg 00:00: Hospita tablet 00 l amLODIPine 2017-0 Yes 10mg Take 10 mg M ethodi (NORVASC) 7-[address] 10 mg 00:00: Hospita tablet 00 l amLODIPine 0 Yes [id number] 10mg Take 1 U nivers 10 mg 7-02 tablet by ity of tablet 00:00: mouth [place] 00 daily. Medical Branch amLODIPine Yes [id number] 10mg Take 1 U nivers 10 mg 7-02 tablet by ity of tablet 00:00: mouth [place] 00 daily. Medical Branch amLODIPine Yes [id number] 10mg Take 1 U nivers 10 mg 7-02 tablet by ity of tablet 00:00: mouth [place] 00 daily. Medical Branch amLODIPine Yes [id number] 10mg Take 1 U nivers 10 mg 7-02 tablet by ity of tablet 00:00: mouth [place] 00 daily. Medical Branch amLODIPine 0 Yes [id number] 10mg Take 1 U nivers 10 mg 7-02 tablet by ity of tablet 00:00: mouth [place] 00 daily. Medical Branch amLODIPine 2017-0 Yes [id number] 10mg Take 1 U nivers 10 mg 7-02 tablet by ity of tablet 00:00: mouth [place] 00 daily. Medical Branch amLODIPine 0 Yes [id number] 10mg Take 1 U nivers 10 mg 7-02 tablet by ity of tablet 00:00: mouth [place] 00 daily. Medical Branch amLODIPine 2017-0 Yes [id number] 10mg Take 1 U nivers 10 mg 7-02 tablet by ity of tablet 00:00: mouth [place] 00 daily. Medical Branch amLODIPine 2017-0 Yes [id number] 10mg Take 1 U nivers 10 mg 7-02 tablet by ity of tablet 00:00: mouth [place] 00 daily. Medical Branch amLODIPine Yes [id number] 10mg Take 1 U nivers 10 mg 7-02 tablet by ity of tablet 00:00: mouth [place] 00 daily. Medical Branch amLODIPine Yes [id number] 10mg Take 1 U nivers 10 mg 7-02 tablet by ity of tablet 00:00: mouth [place] 00 daily. Medical Branch amLODIPine Yes [id number] 10mg Take 1 U nivers 10 mg 7-02 tablet by ity of tablet 00:00: mouth [place] 00 daily. Medical Branch amLODIPine Yes [id number] 10mg Take 1 U nivers 10 mg 7-02 tablet by ity of tablet 00:00: mouth [place] 00 daily. Medical Branch amLODIPine Yes [id number] 10mg Take 1 U nivers 10 mg 7-02 tablet by ity of tablet 00:00: mouth [place] 00 daily. Medical Branch amLODIPine Yes [id number] 10mg Take 1 U nivers 10 mg 7-02 tablet by ity of tablet 00:00: mouth [place] 00 daily. Medical Branch amLODIPine Yes [id number] 10mg Take 1 U nivers 10 mg 7-02 tablet by ity of tablet 00:00: mouth [place] 00 daily. Medical Branch amLODIPine Yes [id number] 10mg Take 1 U nivers 10 mg 7-02 tablet by ity of tablet 00:00: mouth [place] 00 daily. Medical Branch amLODIPine Yes [id number] 10mg Take 1 U nivers 10 mg 7-02 tablet by ity of tablet 00:00: mouth [place] 00 daily. Medical Branch amLODIPine Yes [id number] 10mg Take 1 U nivers 10 mg 7-02 tablet by ity of tablet 00:00: mouth [place] 00 daily. Medical Branch amLODIPine Yes [id number] 10mg Take 1 U nivers 10 mg 7-02 tablet by ity of tablet 00:00: mouth [place] 00 daily. Medical Branch amLODIPine Yes 10mg Take 10 mg M ethodi (NORVASC) 7-[address] 10 mg 00:00: Hospita tablet 00 l Glimepiride Glimepiride Yes [place] take 1 [facility] [place] tablet by Spirit mouth - [facility] every day [facility] Atorvastati Atorvastati Yes [place] TAKE 1 Common n Calcium n Calcium [place] TABLET BY Spirit MOUTH - [facility] EVERY DAY [facility] Vitamin D-3 Vitamin D-3 Yes Todd as Common Daivs directed Spirit - [facility] Amlodipine Amlodipine Yes [place] take 1 Common Besylate Besylate [place] tablet by S pirit mouth - CHI every day [facility] Tradjenta Tradjenta Yes [place] TAKE 1 C ommon [place] TABLET BY Spirit MOUTH - [facility] EVERY DAY St ONCE A DAY [address] Metoprolol Metoprolol Yes [place] take 1 Common Tartrate Tartrate [place] tablet by S pirit mouth - CHI twice a St day [facility] Atorvastati Atorvastati Yes [place] take 1 Common n Calcium n Calcium [place] tablet by Spirit mouth - CHI every day [facility] Furosemide Furosemide No BID Furosemide 40 [...] No QD Victoza 18 MG/3ML MG/3ML MG/3ML Toujeo Toujeo No QD Toujeo SoloStar SoloStar SoloStar 300 UNIT/ML 300 UNIT/ML [...] X 4 MM 4 MM 4 MM Victoza Victoza Yes Todd inject 0.6 C [...] Todd 1 tablet C ommon [facility] Spirit [facility] Doxazosin Doxazosin Yes [place] take 1 C ommon Mesylate Mesylate [place] tablet by S pirit mouth - CHI twice a [facility] Furosemide Furosemide Yes [place] take 1 Common [place] tablet by Spirit mouth - CHI twice a [facility] Toujeo Toujeo Yes Todd INJECT SUB Com mon SoloStar SoloStar Davis 38 UNITS Sp karlee DAILY [facility] Immunizations Ordered Immunization Filled Immunization Date Status Commen ts Source Name Name Afluria single dose Afluria single dose 2020-04-27 Completed [facility] 15:11:00 [facility] Hepatitis A (adult) Hepatitis A (adult) 2018-10-07 Completed [facility] 11:11:00 [facility] Tdap - Tdap - 2013-04-14 Completed [facility] 11:10:00 [facility] Vital Signs Vital Name Observation Time Observation Value Comments Source Systolic blood 2022-02-12 18:19:00 176 mm[Hg] Univer sity of pressure [facility] Diastolic blood 2022-02-12 18:19:00 95 [facility]Hg[facility] 2022-02-12 18:19:00 72 /min [facility] Respiratory rate 2022-02-12 18:19:00 15 /min [facility] Oxygen saturation in 2022-02-12 18:19:00 100 /min [facility] Arterial blood by [facility] Pulse oximetry Branch Body temperature 2022-02-12 16:12:01 37.11 Aparna Univ ersity of [facility] Body weight 2022-02-12 15:35:00 109 kg Universi ty of [facility] BMI 2022-02-12 15:35:00 36.54 kg/m2 Universi ty of [facility] height 2020-06-16 15:20:00 71 [in_i] [facility] weight 2020-06-16 15:20:00 267.5 [lb_av] [facility] temperature 2020-06-16 15:20:00 98.8 [degF] [facility] bmi 2020-06-16 15:20:00 37.3 kg/m2 [facility] oximetry 2020-06-16 15:20:00 97 % [facility] respiratory rate 2020-06-16 15:20:00 17 /min Comm on [facility] blood pressure 2020-06-16 15:20:00 138 mm[Hg] Common [facility] systolic [facility] blood pressure 2020-06-16 15:20:00 74 mm[Hg] Common [facility] - diastolic [facility] Systolic blood 2020-02-09 20:54:00 169 mm[Hg] Univer sity of pressure [facility] Diastolic blood 2020-02-09 20:54:00 101 mm[Hg] Unive rsity of pressure [facility] Heart rate 2020-02-09 20:54:00 88 /min Universi ty [facility] Body temperature 2020-02-09 20:54:00 36.83 Aparna Univ ersity of [facility] Respiratory rate 2020-02-09 20:54:00 20 /min Univ ersity of [facility] Body height 2020-02-09 20:54:00 172.7 cm Universi ty of [facility] Body weight 2020-02-09 20:54:00 112.946 kg Universi ty of [facility] BMI 2020-02-09 20:54:00 37.86 kg/m2 Universi ty of [facility] Oxygen saturation in 2020-02-09 20:54:00 98 /min University of Arterial blood by [facility] Pulse oximetry Branch Systolic blood 2020-02-09 20:54:00 169 mm[Hg] Univer sity of pressure [place] [facility] Diastolic blood 2020-02-09 20:54:00 101 mm[Hg] Unive rsity of pressure [place] [facility] Heart rate 2020-02-09 20:54:00 88 /min Universi ty of [place] [facility] [place] Body temperature 2020-02-09 20:54:00 36.83 Aparna Univ ersity of [place] [facility] Respiratory rate 2020-02-09 20:54:00 20 /min Univ ersity of [place] [facility] Body height 2020-02-09 20:54:00 172.7 cm Universi ty of [place] [facility] Body weight 2020-02-09 20:54:00 112.946 kg Universi ty of [place] [facility] BMI 2020-02-09 20:54:00 37.86 kg/m2 Universi ty of [facility] Oxygen saturation in 2020-02-09 20:54:00 98 /min University of Arterial blood by [facility] Pulse oximetry Branch Systolic blood 2020-01-29 19:55:00 123 mm[Hg] Univer sity of pressure [place] [facility] Diastolic blood 2020-01-29 19:55:00 81 mm[Hg] Unive rsity of pressure [place] [facility] Respiratory rate 2020-01-29 19:55:00 12 /min Univ ersity of [place] [facility] Oxygen saturation in 2020-01-29 19:55:00 97 /min University of Arterial blood by [facility] Pulse oximetry Branch Heart rate 2020-01-29 19:40:00 72 /min Universi ty of [place] [facility] Body temperature 2020-01-29 19:25:00 36.89 Aparna Univ ersity of [place] [facility] Systolic blood 2020-01-28 16:36:00 111 mm[Hg] Univer sity of pressure [place] [facility] Diastolic blood 2020-01-28 16:36:00 76 mm[Hg] Unive rsity of pressure [place] [facility] Heart rate 2020-01-28 16:36:00 100 /min Universi ty of [place] [facility] Body temperature 2020-01-28 16:36:00 37.44 Aparna Univ ersity of [place] [facility] Respiratory rate 2020-01-28 16:36:00 18 /min Univ ersity of [place] [facility] Body weight 2020-01-28 16:36:00 110.859 kg Universi ty of [facility] BMI 2020-01-28 16:36:00 34.10 kg/m2 Universi ty of [facility] Systolic blood 2019-03-27 16:59:00 132 mm[Hg] Univer sity of pressure [facility] Diastolic blood 2019-03-27 16:59:00 82 mm[Hg] Unive rsity of [facility] Oxygen saturation in 2019-03-27 16:59:00 100 /min [facility] Arterial blood by [facility] Pulse oximetry Branch Heart rate 2019-03-27 16:45:00 81 /min Universi ty of [facility] Respiratory rate 2019-03-27 16:45:00 20 /min [facility] Body temperature 2019-03-27 16:37:00 36.94 Aparna [facility] Body height 2019-03-25 17:00:00 180.3 cm Universi ty [facility] Body weight 2019-03-25 17:00:00 117.935 kg Universi ty [facility] BMI 2019-03-25 17:00:00 36.26 kg/m2 Universi ty [facility] Systolic blood 2019-03-12 19:16:00 122 mm[Hg] Univer sity of [facility] Diastolic blood 2019-03-12 19:16:00 79 mm[Hg] Unive rsity of [facility] Heart rate 2019-03-12 19:16:00 85 /min Universi ty [facility] Body temperature 2019-03-12 19:16:00 38.11 Aparna [facility] Respiratory rate 2019-03-12 19:16:00 18 /min [facility] Body height 2019-03-12 19:16:00 172.7 cm Universi ty [facility] Body weight 2019-03-12 19:16:00 116.484 kg [facility] BMI 2019-03-12 19:16:00 39.05 kg/m2 [facility] Procedures Procedure Date / Time Performing Clinician Source Performed XR FOOT 3+ VW LEFT 2022-02-12 17:18:00 Timothy Earl [facility] CBC WITH DIFF 2022-02-12 16:35:00 Timothy Earl [place] [facility] COMP. METABOLIC PANEL 2022-02-12 16:21:00 Timothy Earl [facility] ([id number]) Medical Branch CONSENT/REFUSAL FOR 2022-02-12 15:18:13 [facility] Name [facility] BASIC METABOLIC PANEL 2020-01-29 16:55:00 [facility], K, CL, CO2, Medical Branch GLUCOSE, BUN, CREATININE, CA) POCT GLUCOSE(AGE 2020-01-29 15:48:00 Perfecto Bailey [facility] >30DAYS) Medical [place] DAY SURGERY - ADC 2020-01-29 05:01:00 Doctor Unassigned, No [facility] Name Medical Branch EXTERNAL PROVIDER 2020-01-28 05:01:00 Doctor Unassigned, No [facility] RECORDS Name [facility] [place] POCT GLUCOSE(AGE 2019-03-27 16:31:00 Debra Trejo [facility] 0-30DAYS) [facility] EKG-12 LEAD 2019-03-27 14:15:39 Aleksandar [facility] BASIC METABOLIC PANEL 2019-03-27 13:52:00 Leona Telles [facility] (NA, K, CL, CO2, Medical Branch GLUCOSE, BUN, CREATININE, CA) CBC WITH DIFFERENTIAL 2019-03-27 13:51:00 Leona Telles [facility] ASSIGNMENT OF BENEFITS 2019-03-12 19:03:56 Doctor Unassigned, No [facility] Name Medical Branch REFERRAL- 2019-03-10 05:01:00 Doctor Unassigned, No [facility] REQUEST/RESPONSE Name [facility] REFERRAL- 2019-02-17 05:01:00 Doctor Unassigned, No [facility] REQUEST/RESPONSE Name [facility] Plan of Care Planned Activity Planned Date Details Comments Source Future Scheduled 2022-07-16 COVID-19 VACCINE (#1) [facility] Test 15:26:29 [code = COVID-19 VACCINE (#1)] Future Scheduled 2022-07-16 Pneumococcal Vaccine: [facility] Test 15:26:29 Pediatrics (0 to 5 Years) and At-Risk Patients (6 to 64 Years) (1 - PCV) [code = Pneumococcal Vaccine: Pediatrics (0 to 5 Years) and At-Risk Patients (6 to 64 Years) (1 - PCV)] Future Scheduled 2022-07-16 DIABETES: [facility]INAL [facility] Test 15:26:29 EXAM [code = DIABETES: RETINAL EYE EXAM] Future Scheduled 2022-07-16 [facility] 15:26:29 [code = DIABETIC FOOT EXAM] Future Scheduled 2022-07-16 [facility] 15:26:29 (procedure) [code = 938818101] Future Scheduled 2022-07-16 [facility]ING [facility] 15:26:29 [code = COLONOSCOPY SCREENING] Future Scheduled 2022-07-16 INFLUENZA VACCINE [facility] Test 15:26:29 [code = INFLUENZA VACCINE] Future Scheduled 2022-06-20 COVID-19 VACCINE (#1) [facility] Test 21:54:07 [code = COVID-19 VACCINE (#1)] Future Scheduled 2022-06-20 Pneumococcal [facility]: [facility] Test 21:54:07 Pediatrics (0 to 5 Years) and At-Risk Patients (6 to 64 Years) (1 - PCV) [code = Pneumococcal Vaccine: Pediatrics (0 to 5 Years) and At-Risk Patients (6 to 64 Years) (1 - PCV)] Future Scheduled 2022-06-20 DIABETES: RETINAL EYE [facility] Hospital Test 21:54:07 EXAM [code = DIABETES: RETINAL EYE EXAM] Future Scheduled 2022-06-20 [facility] Test 21:54:07 [code = DIABETIC FOOT EXAM] Future Scheduled 2022-06-20 [facility] Test 21:54:07 (procedure) [code = [id number]] Future Scheduled 2022-06-20 [facility]ING [facility] 21:54:07 [code = COLONOSCOPY SCREENING] Future Scheduled 2022-06-20 INFLUENZA VACCINE [facility] Test 21:54:07 [code = INFLUENZA VACCINE] Future Scheduled 2022-06-20 COVID-19 VACCINE (#1) [facility] Test 21:54:07 [code = COVID-19 VACCINE (#1)] Future Scheduled 2022-06-20 Pneumococcal Vaccine: [facility] Test 21:54:07 Pediatrics (0 to 5 Years) and At-Risk Patients (6 to 64 Years) (1 - PCV) [code = Pneumococcal Vaccine: Pediatrics (0 to 5 Years) and At-Risk Patients (6 to 64 Years) (1 - PCV)] Future Scheduled 2022-06-20 DIABETES: RETINAL EYE [facility] Test 21:54:07 EXAM [code = DIABETES: RETINAL EYE EXAM] Future Scheduled 2022-06-20 DIABETIC FOOT EXAM [facility] Test 21:54:07 [code = DIABETIC FOOT EXAM] Future Scheduled 2022-06-20 Hepatitis C screening [facility] Test 21:54:07 (procedure) [code = [id number]] Future Scheduled 2022-06-20 COLONOSCOPY SCREENING [facility] Test 21:54:07 [code = COLONOSCOPY SCREENING] Future Scheduled 2022-06-20 INFLUENZA VACCINE Method [facility] Hospital Test 21:54:07 [code = INFLUENZA VACCINE] Future Scheduled 2022-05-14 HEPATITIS B VACCINES [facility] Test 04:26:27 (1 of 3 - 3-dose series) [code = HEPATITIS B VACCINES (1 of 3 - 3-dose series)] Future Scheduled 2022-05-14 COVID-19 VACCINE (#1) [facility] Test 04:26:27 [code = COVID-19 VACCINE (#1)] Future Scheduled 2022-05-14 Pneumococcal Vaccine: [facility] Test 04:26:27 Pediatrics (0 to 5 Years) and At-Risk Patients (6 to 64 Years) (1 - PCV) [code = Pneumococcal Vaccine: Pediatrics (0 to 5 Years) and At-Risk Patients (6 to 64 Years) (1 - PCV)] Future Scheduled 2022-05-14 DIABETES: RETINAL EYE [facility] Test 04:26:27 EXAM [code = DIABETES: RETINAL EYE EXAM] Future Scheduled 2022-05-14 DIABETIC FOOT EXAM [facility] Test 04:26:27 [code = DIABETIC FOOT EXAM] Future Scheduled 2022-05-14 Hepatitis C screening [facility] Test 04:26:27 (procedure) [code = 740313072] Future Scheduled 2022-05-14 COLONOSCOPY SCREENING [facility] Test 04:26:27 [code = COLONOSCOPY SCREENING] Future Scheduled 2022-05-14 INFLUENZA VACCINE Method [facility] Test 04:26:27 [code = INFLUENZA VACCINE] Future Scheduled 2021-08-08 COVID-19 VACCINE (1) Met [facility] Test 22:23:08 [code = COVID-19 VACCINE (1)] Future Scheduled 2021-08-08 DIABETES: RETINAL EYE [facility] Test 22:23:08 EXAM [code = DIABETES: RETINAL EYE EXAM] Future Scheduled 2021-08-08 DIABETIC FOOT EXAM [facility] Test 22:23:08 [code = DIABETIC FOOT EXAM] Future Scheduled 2021-08-08 Hepatitis C screening [facility] Test 22:23:08 (procedure) [code = 678898731] Future Scheduled 2021-08-08 INFLUENZA VACCINE Method [facility] Test 22:23:08 [code = INFLUENZA VACCINE] Encounters Start End Encounter Admission Attending Care Care Encounter Source Date/Time Date/Time Type Type Clinicians Facility Department ID 2021-08-02 Outpatient Davis, [facility] [id number] Common 12:37:29 Todd [id number] [facility] 2021-08-02 Out[facility] [id number] Common 11:44:45 Todd [id number] [facility] 2021-08-02 Outpatient Davis, [facility] [id number] Common 11:44:18 Todd [id number] [facility] 2021-08-02 Outpatient Davis, [facility] [id number] Common 11:25:55 Todd 95424 [facility] 2021-08-02 Outpatient Davis, STLMLC STLC [id number] Common 11:25:27 Todd 41030 [facility] 2021-08-02 Outpatient Davis, STLC STLC [id number] Common 11:17:13 Todd 80891 [facility] 2021-08-02 Outpatient Davis, [facility] [id number] Common 11:12:09 Todd 82356 [facility] 2021-08-02 Outpatient Davis, [facility] [id number] Common 11:07:27 Todd 62408 [facility] 2021-05-05 Outpatient R NEIL [facility] EFRA [id number] Univers 08:28:09 DEBRA eluisophia [facility] 2022-02-12 2022-02-12 Emergency X RAJAT [facility] ERT [id number] Univers 10:36:00 13:43:00 TIMOTHY juan [facility] 2022-02-12 2022-02-12 Emergency [facility] [id number] Univers 10:36:00 13:43:00 Timothy MIR [id number] i ty raheem [place] 4.2.7.2.686 [facility] [phone] [facility] [address] 2020-06-16 2020-06-16 [facility] [id number] Co mmon 00:00:00 00:00:00 VISIT [facility] PT - CHI LEVEL 4 [facility] 2020-05-24 2020-05-24 Outpatient SUSANNADELVIN [facility] [id number] [place] 00:00:00 00:00:00 125 Method i 2020-04-26 2020-04-26 Outpatient SUSANNA, [facility] [id number] [place] 00:00:00 00:00:00 028 Method i 2020-04-14 2020-04-14 Outpatient SUSANNA, [facility] [id number] [place] 00:00:00 00:00:00 467 Method i 2020-04-14 2020-04-14 Outpatient [facility] [id number] [place] 00:00:00 00:00:00 581 Method i 2020-03-17 2020-03-17 Outpatient [facility] [id number] Common 14:10:00 14:10:[address] Family [facility] Family Medicine [facility] 2020-03-15 2020-03-15 Outpatient [facility]NA, [facility] [id number] [place] 00:00:00 00:00:00 751 Method i 2020-03-10 2020-03-10 Outpatient SUSANNA [facility] [id number] [place] 00:00:00 00:00:00 154 Method i 2020-03-10 2020-03-10 Outpatient SUSANNA, [facility] [id number] [place] 00:00:00 00:00:00 038 Method i 2020-03-08 2020-03-08 Outpatient SACHA [facility] [id number] [place] 00:00:00 00:00:00 GUILHERME 843 Method i 2020-03-08 2020-03-08 Outpatient SACHA [facility] [id number] [place] 00:00:00 00:00:00 GUILHERME 916 Method i 2020-02-22 2020-02-22 Outpatient Matt Gutierrezt 32 [id number] Common 16:58:00 16:58:00 t DivX [facility]Over [facility] 2020-02-09 2020-02-09 Office [facility] [id number] 15:18:54 16:25:44 Visit Debra Mir 350.1.13.10 [place] 4.2.7.2.686 Professio [phone] [address] 2020-02-09 2020-02-09 [facility] [id number] Univers 15:18:54 16:25:44 Visit Debra Mir 350.1.13.10 [place] [phone] Ca dical [address] 2020-02-09 2020-02-09 Outpatient R NEIL [facility] [id number] Univers 15:30:00 15:30:00 DEBRA juan of [facility] 2020-01-29 2020-01-29 [facility] [id number] Univers 08:26:00 15:00:00 Encounter Debra Mir 350.1.13.10 [place] [phone] [address] 2020-01-29 2020-01-29 Laboratory Only, Adc Test [facility] 1.2.840. [id number] Univers 08:31:17 08:46:17 Only Debra Trejo 350.1.13.10 [place] [phone] [facility] [address] 2020-01-29 2020-01-29 Orders Doctor DELONTE 1.2.840.114 [id number] Univers 00:00:00 00:00:00 Only Unassigned, REINA 350.1.13.10 ity of [facility] 4.2.7.2.686 Alfred as [phone] [address] 2020-01-28 2020-01-28 Office [facility] [id number] Univers 11:28:36 11:56:45 Visit Debra Mir 350.1.13.10 i [place] [phone] Ca dical nal [address] [facility] 2020-01-28 2020-01-28 [facility] [id number] Univers 11:15:00 11:15:00 DEBRA juan [facility] 2020-01-28 2020-01-28 Orders Doctor DELONTE 1.2.840.114 [id number] Univers 00:00:00 00:00:00 Only Unassigned, REINA 350.1.13.10 ity of [facility] 4.2.7.2.686 Alfred as [phone] [address] 2020-01-28 2020-01-28 Prep For Elfego [facility] 1.2.840.114 [id number] Univers 00:00:00 00:00:00 Surgery Leona Mir 350.1.13.10 [place] [phone] Ca dical nal 204 [facility] 2020-01-20 2020-01-20 Outpatient [facility] [id number] Common 15:47:00 15:47:[address] [facility] 2019-12-16 2019-12-16 Outpatient [facility] [id number] Common 15:00:00 15:00:[address] [facility] 2019-12-16 2019-12-16 Outpatient [facility] [id number] Common 14:45:00 14:45:[address] [facility] [address] [facility] [address] [facility] 2019-11-26 2019-11-26 Outpatient [facility] [id number] Common 13:57:00 13:57:00 t [facility] [address] [facility] 2019-09-15 2019-09-15 Outpatient [facility] [id number] Common 15:15:00 15:15:00 [address] [facility] [address] [facility] 2019-09-14 2019-09-14 Outpatient [facility] [id number] Common 07:56:00 07:56:00 [address] [facility] [address] [facility] 2019-09-10 2019-09-10 Outpatient [facility] [id number] Common 10:00:00 10:00:00 [facility] 2019-09-07 2019-09-07 Out[facility] [id number] Common 09:39:00 09:39:00 [address] [facility] [address] [facility] 2019-08-13 2019-08-13 Outpatient [facility] [id number] Common 14:49:00 14:49:00 [address] [facility] [address] [facility] 2019-07-20 2019-07-20 Outpatient Ila TREJO [facility] [id number] Univers 09:15:00 09:16:44 DEBRA juan [facility] 2019-07-06 2019-07-06 Outpatient Ila TREJO [facility] EFRA [id number] Univers 10:18:00 13:59:00 DEBRA juan [facility] 2019-06-25 2019-06-25 Outpatient [facility] [id number] Common 11:04:00 11:04:00 [address] [facility] [address] [facility] 2019-06-18 2019-06-18 Outpatient Ila TREJO [facility] [id number] Univers 14:30:00 14:54:07 DEBRA juan [facility] 2019-06-15 2019-06-15 Outpatient [facility] [id number] Common 10:00:00 10:00:00 [address] [facility] [address] [facility] 2019-06-10 2019-06-10 Outpatient [facility] [id number] Common 08:33:00 08:33:00 [address] [facility] [address] [facility] 2019-06-08 2019-06-08 Outpatient [facility] [id number] Common 13:51:00 13:51:00 t [facility] [address] [facility] 2019-04-09 2019-04-[address] [facility] [facility] [id number] Univers 13:30:00 13:40:01 DEBRA juan [facility] 2019-04-08 2019-04-08 Outpatient [facility] [id number] Common 16:33:00 16:33:00 [address] [facility] [address] [facility] 2019-03-27 2019-03-27 [facility] 1.2.840.114 [id number] Univers 08:38:00 13:00:00 Encounter Debra Mir 350.1.13.10 [place] [phone] [place] [address] [address] 2019-03-17 2019-03-17 Telephone [facility] [id number] Univers 00:00:00 00:00:00 Leona Mir 350.1.13.10 [place] [phone] Ca dical [address] 2019-03-17 2019-03-17 Telephone [facility] [id number] Univers 00:00:00 00:00:00 Leona Mir 350.1.13.10 [place] [phone] Ca dical nal [address] [place] [address] 2019-03-13 2019-03-13 Outpatient [facility] [id number] Common 08:45:00 08:45:[address] [facility] 2019-03-12 2019-03-12 Office [facility] [id number] Univers 14:05:56 15:28:12 Visit Debra Mir 350.1.13.10 i [place] [phone] [facility] [address] [facility] 2019-03-12 2019-03-12 Outpatient R NEIL [facility] [id number] Univers 14:00:00 14:43:39 DEBRA juan [facility] 2019-03-12 2019-03-12 Orders Doctor DELONTE 1.2.840.114 [id number] Univers 00:00:00 00:00:00 Only Unassigned, REINA 350.1.13.10 ity of [facility] 4.2.7.2.686 Alfred as [id number] [address] 2019-03-12 2019-03-12 [facility] 1.2.840.114 [id number] Univers 00:00:00 00:00:00 Surgery Leona Mir 350.1.13.10 [place] [phone] [facility] 204 [facility] 2019-03-10 2019-03-10 Orders Doctor DELONTE 1.2.840.114 [id number] Univers 00:00:00 00:00:00 Only Unassigned, REINA 350.1.13.10 ity of [facility] 4.2.7.2.686 Alfred as [phone] [address] 2019-02-17 2019-02-17 Orders Doctor DELONTE 1.2.840.114 [id number] Univers 00:00:00 00:00:00 Only Unassigned, REINA 350.1.13.10 ity of [facility] 4.2.7.2.686 Alfred as [phone] [address] Results Test Description Test Time Test Comments Results Result Comments Source COMP. METABOLIC PANEL (87038) 2022-02-12 16:53:37 Test Item Value Reference Range Interpretation Comme nts NA (test code = 6361644091) 136 mmol/L 135-145 K (test code = 5823428807) 4.6 mmol/L 3.5-5 CL (test code = 3168358534) 96 mmol/L 98-108 L CO2 TOTAL (test code = 0931393302) 24 mmol/L 23-31 AGAP (test code = 1885247053) 2-16 BUN (test code = 4163382856) 54 mg/dL 7-23 H GLUCOSE (test code = 6839111705) 241 mg/dL 70-110 H CREATININE (test code = 9.53 mg/dL 0.6-1.25 H 0338801180) TOTAL BILI (test code = 0.6 mg/dL 0.1-1.9 3220997800) CALCIUM (test code = 8897320728) 8.9 mg/dL 8.6-10.6 T PROTEIN (test code = 0263235450) 7.3 g/dL 6.3-8.2 ALBUMIN (test code = 5678986797) 3.7 g/dL 3.5-5 ALK PHOS (test code = 7116121919) 146 U/L 34-122 H ALTv (test code = 1742-6) 17 U/L 5-50 AST(SGOT) (test code = 1422203600) 17 U/L 13-40 eGFR (test code = 5005022170) mL/min/1.73m2 CRISTIANA (test code = CRISTIANA) Association [...] tests). Lab Interpretation (test code = Abnormal 22599-1) [facility] WITH [id number] 16:42:15 Test Item Value Reference Range Interpretation Comments WBC (test code = See_Comment [Automated 1690-2) message] The sy stem which generated this [...] RDW-SD (test code = 47.8 fL 38.5-51.6 22690-9) RDW-CV (test code = 14.8 % 12.1-15.4 788-0) PLT (test code = See_Comment [Automated 777-3) message] The sy stem which generated this result transmitted reference range : 150 - 328 10*3/ ?L. The reference r jesse was not used to interpret this result as normal/abnormal . MPV (test code = 10.0 fL 9.8-13 66656-3) NRBC/100 WBC (test See_Comment [Automat ed code = 0979515017) message] The system which generated this result transmitted reference range : 0.0 - 10.0 /100 WBCs. The refer ence range was not u sed to interpret th is result as normal/abnormal . NRBC x10^3 (test code See_Comment [Auto mated = 2484241078) message] The s ystem which generated this result transmitted reference range : 10*3/?L. The reference range was not used to interpret this result as normal/abnormal . GRAN MAT (NEUT) % 77.8 % (test code = 770-8) IMM GRAN % (test code 0.50 % = 4745676068) LYMPH % (test code = 10.8 % 736-9) MONO % (test code = 7.7 % 5905-5) EOS % (test code = 2.9 % 713-8) BASO % (test code = 0.3 % 706-2) GRAN MAT x10^3(ANC) 7.37 10*3/uL 1.99-6.95 H (test code = 1074057817) IMM GRAN x10^3 (test 0.05 10*3/uL 0-0.06 code = 6388192987) LYMPH x10^3 (test code 1.02 10*3/uL 1.09-3.23 L = 731-0) MONO x10^3 (test code 0.73 10*3/uL 0.36-1.02 = 742-7) EOS x10^3 (test code = 0.27 10*3/uL 0.06-0.53 711-2) BASO x10^3 (test code 0.03 10*3/uL 0.01-0.09 = 704-7) Lab Interpretation Abnormal (test code = 58335-4) [facility] RNA [Presence] in Respiratory specimen by BRAD with probe [id number] 23:16:36 Test Item Value Reference Range Interpretation Comments SARS-CoV-2 (COVID-19) RNA Not detected Not-Detected [Presence] in Respiratory specimen by RBAD with probe detection (test code = 25078-1) [facility] Metabolic Panel (NA, K, CL, CO2, Glucose, BUN, Creatinine, CA)2020-01-29 17:22:00 Test Item Value Reference Range Interpretation Comments NA (test code = 136 mmol/L 135-145 5232015994) K (test code = 3.6 mmol/L 3.5-5 9256693620) CL (test code = 97 mmol/L 98-108 L 6420748298) CO2 TOTAL (test code = 28 mmol/L 23-31 6363384398) AGAP (test code = 2-16 9450465783) BUN (test code = 49 mg/dL 7-23 H 0741329107) GLUCOSE (test code = 313 mg/dL 70-110 H 2967868934) CREATININE (test code = 9.39 mg/dL 0.6-1.25 H 3672408589) CALCIUM (test code = 9.1 mg/dL 8.6-10.6 7620304924) eGFR Calculation mL/min/1.73m2 (Non-) (test code = 4673234438) eGFR Calculation mL/min/1.73m2 () (test code = 2702580147) CRISTIANA (test code = CRISTIANA) Association of [...] tests). Lab Interpretation Abnormal (test code = 69564-4) [facility] [id number] 15:48:00 Test Item Value Reference Range Interpretation Comments POCT Glu (age>30days) (test code = 327 mg/dL 70-110 A 3342) Lab Interpretation (test code = Abnormal 91307-6) [facility] GLUCOSE(AGE 0-30DAYS)2019-03-27 16:31:00 Test Item Value Reference Range Interpretation Comments POCT Glu (age 0-30days) (test code 270 mg/dl 40-110 A = 3343) Lab Interpretation (test code = Abnormal 16210-1) [facility] WITH [id number] 14:20:00 Test Item Value Reference Range Interpretation Comments WBC (test code = See_Comment [Automated 6690-2) message] The sy stem which generated this result transmitted reference range : 4.20 - 10.70 10*3/?L. The reference range was not used to interpret this result as normal/abnormal . RBC (test code = See_Comment L [Automated 719-8) message] The sy stem which generated this [...] RDW-SD (test code = 42.0 fL 38.5-51.6 35592-4) RDW-CV (test code = 13.5 % 12.1-15.4 788-0) PLT (test code = See_Comment [Automated 777-3) message] The sy stem which generated this result transmitted reference range : 150 - 328 10*3/ ?L. The reference r jesse was not used to interpret this result as normal/abnormal . MPV (test code = 10.3 fL 9.8-13 19468-4) NRBC/100 WBC (test See_Comment [Automat ed code = 4577127222) message] The system which generated this result transmitted reference range : 0.0 - 10.0 /100 WBCs. The refer ence range was not u sed to interpret th is result as normal/abnormal . NRBC x10^3 (test code See_Comment [Auto mated = 7928214188) message] The s ystem which generated this result transmitted reference range : 10*3/?L. The reference range was not used to interpret this result as normal/abnormal . GRAN MAT (NEUT) % 71.8 % (test code = 770-8) IMM GRAN % (test code 0.90 % = 5369757722) LYMPH % (test code = 17.0 % 736-9) MONO % (test code = 6.2 % 5905-5) EOS % (test code = 3.7 % 713-8) BASO % (test code = 0.4 % 706-2) GRAN MAT x10^3(ANC) 6.71 10*3/uL 1.99-6.95 (test code = 2147328318) IMM GRAN x10^3 (test 0.08 10*3/uL 0-0.06 H code = 4585048499) LYMPH x10^3 (test code 1.59 10*3/uL 1.09-3.23 = 731-0) MONO x10^3 (test code 0.58 10*3/uL 0.36-1.02 = 742-7) EOS x10^3 (test code = 0.35 10*3/uL 0.06-0.53 711-2) BASO x10^3 (test code 0.04 10*3/uL 0.01-0.09 = 704-7) Lab Interpretation Abnormal (test code = 68906-3) [facility] METABOLIC PANEL (NA, K, CL, CO2, GLUCOSE, BUN, CREATININE, CA)2019-03-27 14:07:00 Test Item Value Reference Range Interpretation Comments NA (test code = 141 mmol/L 135-145 6393893190) K (test code = 4.5 mmol/L 3.5-5 9965758617) CL (test code = 102 mmol/L 98-108 5965570195) CO2 TOTAL (test code = 27 mmol/L 23-31 7499564514) AGAP (test code = 2-16 2954444160) BUN (test code = 44 mg/dL 7-23 H 1692089091) GLUCOSE (test code = 291 mg/dL 70-110 H 3145736308) CREATININE (test code = 7.35 mg/dL 0.6-1.25 H 2934510067) CALCIUM (test code = 9.5 mg/dL 8.6-10.6 9627043444) eGFR Calculation mL/min/1.73m2 (Non-) (test code = 3498084594) eGFR Calculation mL/min/1.73m2 () (test code = 0690177639) CRISTIANA (test code = CRISTIANA) Association of [...] tests). Lab Interpretation Abnormal (test code = 50839-4) [facility]
[2022-07-16] MEDS ORDERED: MORPHINE 4 MG/ML SYR ONE ×2 (16:27→21:24)
[2022-07-16] MEDS ORDERED: ONDANSETRON 4 MG/2 ML VIAL ONE (16:28)
[2022-07-16 16:38] LABS: Absolute Lymphocytes (CBC) 0.9 K/uL (0.7-4.9); Hematocrit 30.5 % (39.6-49.0); MCV 87.3 fL (80-100); MPV 7.4 fL (7.6-11.3)
[2022-07-16 16:59] LABS: Albumin 3.2 g/dL (3.4-5.0); Bilirubin Total 0.7 mg/dL (0.2-1.0); Potassium 3.7 mmol/L (3.5-5.1); Protein, Total 7.4 g/dL (6.4-8.2)
[2022-07-16 18:56] LABS: SARS-COV-2 RT PCR NEGATIVE (NEGATIVE)
--- NOTE | 2022-07-16 20:19 | RAD REPORT ---
EXAM DESCRIPTION: CT - Abdomen Pelvis Wo Contrast - 07/16/2022 8:12 pm CLINICAL HISTORY: Abdominal pain. RLQ pain, po contrast only COMPARISON: CT ABD PELVIS W CONTRAST dated 06/30/2014 TECHNIQUE: CT imaging of the abdomen and pelvis was performed without contrast. Solid organ, bowel a nd vascular assessment is limited due to lack of IV and oral contrast. All CT scans are performed using dose optimization technique as appropriate and may include automated exposure control or mA/KV adjustment according to patient size. FINDINGS: The lower lung fontenot are clear.Porcelain gallbladder noted. The liver, spleen, pancreas, adrenal glands and kidneys are within normal limits for a limited non-co ntrast examination. No bowel obstruction, free air, free fluid or abscess. There is thickened appendix is 17 mm with jake rounding inflammation compatible with acute appendicitis. The osseous structures are within normal limits.Significant atherosclerosis is present. IMPRESSION: Acute appendicitis. Porcelain gallbladder. A limited non-contrast examination was performed as detailed.
--- NOTE | 2022-07-16 20:56 | ER ---
Nurse's Notes [facility] Name: Nikita Bartlett Age: 46 yrs Sex: Male : 1975 Arrival Date: 07/16/2022 Time: 15:49 Bed 14 Private MD: Diagnosis: Acute appendicitis with localized peritonitis Presentation: 07/16 15:49 Chief complaint: EMS states: patient complaining of RLQ pain radiating to umbilicus, ko1 more rebound pain. Coronavirus screen: Vaccine status: Patient reports being unvaccinated. At this time, the client does not indicate any symptoms associated with coronavirus-19. Ebola Screen: No symptoms or risks identified at this time. Initial Sepsis Screen: Does the patient meet any 2 criteria? No. Patient's initial sepsis screen is negative. Does the patient have a suspected source of infection? No. Patient's initial sepsis screen is negative. Risk Assessment: Do you want to hurt yourself or someone else? Patient reports no desire to harm self or others. Onset of symptoms was July 16, 2022. 15:49 Method Of Arrival: EMS: [facility] ko1 15:49 Acuity: OCTAVIO 3 ko1 Triage Assessment: 15:52 General: Appears in no apparent distress. uncomfortable, Behavior is calm, cooperative, ko1 appropriate for age. Pain: Complains of pain in umbilical area and right lower quadrant. GI: Reports diarrhea, nausea. Historical: - Allergies: 15:52 No Known Allergies; ko1 - PMHx: 15:52 "Leaking heart valve"; Anemia; Diabetes - NIDDM; Dialysis; Enlarged Heart; ko1 Hypertension; osteomyelitis; - Immunization history:: Adult Immunizations unknown. - Social history:: Smoking status: Patient denies any tobacco usage or history of. Screenin:00 [facility] ED Fall Risk Assessment (Adult) History of falling in the last 3 months, ko1 including since admission No falls in past 3 months (0 pts) Confusion or Disorientation No (0 pts) Intoxicated or Sedated No (0 pts) Impaired Gait Yes (1 pt) Mobility Assist Device Used Yes (1 pt) Altered Elimination No (0 pt) Score/Fall Risk Level 0 - 2 = Low Risk Oriented to surroundings, Maintained a safe environment, Educated pt \\T\\ family on fall prevention, incl call for assistance when getting out of bed, Assessed \\T\\ reinforced patient's understanding of fall precautions, Provided non-skid footwear, Hourly rounding (assess needs \\T\\ fall precautionary measures) done, Used ambulatory aids as needed (educated on \\T\\ assisted with), Used gait belt as appropriate. Abuse screen: Denies threats or abuse. Denies injuries from another. Nutritional screening: No deficits noted. Tuberculosis screening: No symptoms or risk factors identified. Assessment: 16:00 General: Appears in no apparent distress. uncomfortable, Behavior is calm, cooperative, ko1 appropriate for age. Pain: Complains of pain in abdomen and right lower quadrant and umbilical area. Neuro: No deficits noted. Cardiovascular: No deficits noted. Respiratory: No deficits noted. GI: Bowel sounds present X 4 quads. Abd is soft Abdomen has rebound tenderness in right lower quadrant. : Reports dialysis patient T-TH-SAT. EENT: No deficits noted. Derm: Reports bilateral wounds to feet, recent surgery done, dressings intact. Musculoskeletal: No deficits noted. 19:00 General: Appears in no apparent distress. uncomfortable, well groomed, well developed, pf1 Behavior is calm, cooperative, appropriate for age, quiet. 19:00 Pain: Complains of pain in right lower quadrant Pain currently is 6 out of 10 on a pain pf1 scale. Neuro: No deficits noted. Level of Consciousness is awake, alert, obeys commands, Oriented to person, place, time, situation. Cardiovascular: No deficits noted. Capillary refill < 3 seconds Patient's skin is warm and dry. Respiratory: No deficits noted. Airway is patent Trachea midline Respiratory effort is even, unlabored, Respiratory pattern is regular, symmetrical. GI: Abdomen is round non-distended, Bowel sounds present X 4 quads. Abd is soft Abdomen has rebound tenderness in right lower quadrant. : No deficits noted. No signs and/or symptoms were reported regarding the genitourinary system. EENT: No deficits noted. No signs and/or symptoms were reported regarding the EENT system. Derm: No deficits noted. No signs and/or symptoms reported regarding the dermatologic system. 20:00 Reassessment: Patient appears in no apparent distress at this time. No changes from pf1 previously documented assessment. Patient and/or family updated on plan of care and expected duration. Pain level reassessed. Patient is alert, oriented x 3, equal unlabored respirations, skin warm/dry/pink. Patient states symptoms have not improved. 21:00 Reassessment: Patient appears in no apparent distress at this time. No changes from pf1 previously documented assessment. Patient and/or family updated on plan of care and expected duration. Pain level reassessed. Patient is alert, oriented x 3, equal unlabored respirations, skin warm/dry/pink. Patient states symptoms have not improved. 07/17 08:00 Reassessment: Spoke with 2nd floor to give report and was left on hold for 15 minutes kr3 before hanging up. 08:02 Reassessment: Spoke with Virginia, stated that she is trying to figure out what is going on kr3 they were given one more patient than what they can take and she will have the nurse call back once she figures out what is going on. Vital Signs: 07/16 15:49 BP 187 / 95; Pulse 84; Resp 18; Temp 100.6(O); Pulse Ox 99% ; Weight 102.06 kg (R); ko1 Height 5 ft. 11 in. (180.34 cm) (R); 16:00 BP 160 / 81; Pulse 76; Resp 18; Pulse Ox 95% on R/A; ko1 17:00 BP 176 / 86; Pulse 79; Resp 18; Pulse Ox 97% ; ko1 18:00 BP 120 / 79; Pulse 73; Resp 18; Pulse Ox 98% ; ko1 15:49 Body Mass Index 31.38 (102.06 kg, 180.34 cm) ko1 ED Course: 15:49 Patient arrived in ED. ko1 15:51 Kareem Brower PA is PHCP. cp 15:51 Kareem Mccann MD is Attending Physician. cp 15:52 Triage completed. ko1 15:52 Arm band placed on right wrist. ko1 15:56 Inserted saline lock: 20 gauge in right antecubital area, using aseptic technique. jw7 16:00 Patient maintains SpO2 saturation greater than 95% on room air. ko1 16:00 Patient has correct armband on for positive identification. Fall risk band placed. Bed ko1 in low position. Call light in reach. Side rails up X2. Client placed on continuous cardiac and pulse oximetry monitoring. NIBP monitoring applied. secured entrance monitor on. 16:09 Efraín, Thao, RN is Primary Nurse. ko1 16:31 Magnesium Sent. ko1 16:31 CBC with Diff Sent. ko1 16:31 CMP Sent. ko1 16:31 Lipase Sent. ko1 17:03 Notified ED physician of a critical lab result(s). Creatinine 9.17. ld1 19:00 No provider procedures requiring assistance completed. pf1 20:00 Patient admitted, IV remains in place. pf1 20:14 Abdomen In Process Unspecified. EDMS 20:55 Yesi Rahman PA-C is Hospitalizing Provider. cp 21:07 John Weaver is Hospitalizing Provider. cp 07/17 08:30 Report given to EMILIE Martínez second floor. kr3 Administered Medications: 07/16 16:31 Drug: Zofran (Ondansetron) 4 mg Route: IVP; Site: right antecubital; ko1 16:31 Drug: morphine 4 mg Route: IVP; Infused Over: 4 mins; Site: right antecubital; ko1 21:40 Drug: morphine 4 mg Route: IVP; Infused Over: 4 mins; Site: right antecubital; pf1 22:40 Follow up: Response: No adverse reaction; Pain is decreased; RASS: Alert and Calm (0) pf1 21:40 Drug: Tylenol 500 mg Route: PO; pf1 22:40 Follow up: Response: No adverse reaction; Marked relief of symptoms; Pain is decreased; pf1 RASS: Alert and Calm (0) 21:42 Drug: Zosyn (piperacillin-tazobactam) 3.375 grams Route: IVPB; Infused Over: 60 mins; pf1 Site: right antecubital; 22:45 Follow up: IV Status: Completed infusion; IV Intake: 100ml pf1 Medication: 16:00 VIS not applicable for this client. ko1 Intake: 22:45 IV: 100ml; Total: 100ml. pf1 Outcome: 20:55 Decision to Hospitalize by Provider. cp 21:35 Condition: stable pf1 21:35 Instructed on the need for admit, Demonstrated understanding of instructions. 21:35 Admitted to ER Hold. [facility] see [facility] for further documentation. pf1 07/17 08:58 Patient left the ED. ap3 Signatures: Dispatcher [employer] EDOR Kareem Brower PA PA cp Kenna Sutton RN RN ap3 Glo Valles RN RN ld1 Teagan Aguilera jw7 Marybeth Hogan, RN RN kr3 Thao Kenny, RN RN ko1 Merlyn mckeon, RN RN pf1
--- NOTE | 2022-07-16 20:56 | EDPHYS ---
Physician Documentation [facility] Name: Nikita Bartlett Age: 46 yrs Sex: Male : 1975 Arrival Date: 07/16/2022 Time: 15:49 Bed 14 Private MD: ED Physician Kareem Mccann HPI: 07/16 16:05 This 46 yrs old Male presents to ER via EMS with complaints of Abdominal Pain. cp 16:05 The patient presents with abdominal pain right lower quadrant. Onset: The cp symptoms/episode began/occurred this morning, about 0400. Associated signs and symptoms: Pertinent positives: diarrhea, fever, nausea. 16:05 The symptoms are described as constant. cp 16:05 Modifying factors: the symptoms are aggravated by movement, pressure. cp Historical: - Allergies: 15:52 No Known Allergies; ko1 - PMHx: 15:52 "Leaking heart valve"; Anemia; Diabetes - NIDDM; Dialysis; Enlarged Heart; ko1 Hypertension; osteomyelitis; - Immunization history:: Adult Immunizations unknown. - Social history:: Smoking status: Patient denies any tobacco usage or history of. ROS: 16:10 Constitutional: Positive for fever, Negative for body aches. cp 16:10 Eyes: Negative for injury, pain, redness, and discharge. cp 16:10 ENT: Negative for drainage from ear(s), ear pain, sore throat, difficulty swallowing, difficulty handling secretions. 16:10 Cardiovascular: Negative for chest pain. 16:10 Respiratory: Negative for cough, shortness of breath, wheezing. 16:10 Abdomen/GI: Positive for abdominal pain, of the right lower quadrant, Negative for vomiting, diarrhea, constipation. 16:10 : Negative for urinary symptoms, testicular pain 16:10 Neuro: Negative for altered mental status, dizziness, headache, weakness. 16:10 All other systems are negative. cp Exam: 16:15 Constitutional: The patient appears in no acute distress, alert, awake, cp non-diaphoretic, non-toxic, well developed, well nourished, uncomfortable. 16:15 Head/Face: Normocephalic, atraumatic. cp 16:15 Eyes: Periorbital structures: appear normal, Conjunctiva: normal, no exudate, no injection, Sclera: no appreciated abnormality, Lids and lashes: appear normal, bilaterally. 16:15 ENT: External ear(s): are unremarkable, Nose: is normal, Mouth: Lips: moist, Oral mucosa: moist, Posterior pharynx: Airway: no evidence of obstruction, patent. 16:15 Chest/axilla: Inspection: normal. 16:15 Cardiovascular: Rate: normal, Rhythm: regular. 16:15 Respiratory: the patient does not display signs of respiratory distress, Respirations: normal, no use of accessory muscles, no retractions, labored breathing, is not present, Breath sounds: are clear throughout, no decreased breath sounds, no stridor, no wheezing. 16:15 Abdomen/GI: Inspection: abdomen appears normal, Bowel sounds: active, all quadrants, Palpation: soft, in all quadrants, moderate abdominal tenderness, in the right lower quadrant, rebound tenderness, is not appreciated, involuntary guarding, is not appreciated. 16:15 Back: pain, is absent, ROM is normal. Vital Signs: 15:49 BP 187 / 95; Pulse 84; Resp 18; Temp 100.6(O); Pulse Ox 99% ; Weight 102.06 kg (R); ko1 Height 5 ft. 11 in. (180.34 cm) (R); 16:00 BP 160 / 81; Pulse 76; Resp 18; Pulse Ox 95% on R/A; ko1 17:00 BP 176 / 86; Pulse 79; Resp 18; Pulse Ox 97% ; ko1 18:00 BP 120 / 79; Pulse 73; Resp 18; Pulse Ox 98% ; ko1 15:49 Body Mass Index 31.38 (102.06 kg, 180.34 cm) ko1 MDM: 15:52 Patient medically screened. cp 21:00 Data reviewed: vital signs, nurses notes, lab test result(s), radiologic studies, CT cp scan. 21:00 Consideration of Admission/Observation Patient was admitted/placed on observation. cp Management of patient was discussed with the following: Hospitalist: Kathy Rahman NP. Oriental Rug Repairer: DR Brizuela. Care significantly affected by the following chronic conditions: Diabetes, Chronic Kidney Disease. Counseling: I had a detailed discussion with the patient and/or guardian regarding: the historical points, exam findings, and any diagnostic results supporting the discharge/admit diagnosis, lab results, radiology results, the need for further work-up and treatment in the hospital. 07/16 16:07 Order name: CBC with Diff; Complete Time: 17:19 cp 07/16 17:20 Interpretation: Normal except: RBC 3.50; HGB 10.6; HCT 30.5; PLT 142; RDW 15.8; MPV cp 7.4; KAI% 82.7; LYM% 10.0. 07/16 16:07 Order name: CMP; Complete Time: 17:19 cp 07/16 17:20 Interpretation: Normal except: NA 134; GLUC 227; BUN 47; CRE 9.17; GFR 7; ALB 3.2; GLOB cp 4.2; A/G 0.8. 07/16 16:07 Order name: Lipase; Complete Time: 17:19 cp 07/16 16:07 Order name: Magnesium; Complete Time: 17:19 cp 07/16 17:26 Order name: COVID-19/FLU A+B; Complete Time: 19:05 cp 07/16 19:05 Interpretation: Reviewed. cp 07/17 00:06 Order name: Glucose, Ancillary Testing; Complete Time: 00:27 EDMS 07/16 17:34 Order name: CT Abd/Pelvis - PO Contrast Only cp 07/17 03:00 Order name: CBC with Automated Diff; Complete Time: 03:04 EDMS 07/17 03:22 Order name: Basic Metabolic Panel; Complete Time: 03:59 EDMS 07/17 03:22 Order name: Phosphorus; Complete Time: 03:59 EDMS 07/17 03:22 Order name: Magnesium; Complete Time: 03:59 EDMS 07/17 06:07 Order name: Glucose, Ancillary Testing EDMS 07/16 16:07 Order name: IV Saline Lock; Complete Time: 16:18 cp 07/16 16:07 Order name: Labs collected and sent; Complete Time: 16:31 cp 07/16 17:41 Order name: Abdomen ; Complete Time: 20:52 EDMS 07/16 20:53 Interpretation: Report reviewed. cp Administered Medications: 16:31 Drug: Zofran (Ondansetron) 4 mg Route: IVP; Site: right antecubital; ko1 16:31 Drug: morphine 4 mg Route: IVP; Infused Over: 4 mins; Site: right antecubital; ko1 21:40 Drug: morphine 4 mg Route: IVP; Infused Over: 4 mins; Site: right antecubital; pf1 22:40 Follow up: Response: No adverse reaction; Pain is decreased; RASS: Alert and Calm (0) pf1 21:40 Drug: Tylenol 500 mg Route: PO; pf1 22:40 Follow up: Response: No adverse reaction; Marked relief of symptoms; Pain is decreased; pf1 RASS: Alert and Calm (0) 21:42 Drug: Zosyn (piperacillin-tazobactam) 3.375 grams Route: IVPB; Infused Over: 60 mins; pf1 Site: right antecubital; 22:45 Follow up: IV Status: Completed infusion; IV Intake: 100ml pf1 Disposition Summary: 07/16/22 20:55 Hospitalization Ordered Hospitalization Status: Inpatient Admission cp Condition: Stable cp Problem: new cp Symptoms: have improved cp Bed/Room Type: Standard cp Provider: John Weaver(07/16/22 21:07) cp Location: Telemetry/MedSurg (Inpatient)(07/17/22 07:08) Room Assignment: [facility](07/17/22 07:08) Diagnosis - Acute appendicitis with localized peritonitis cp Forms: - Medication Reconciliation Form cp - SBAR form cp Addendum: 07/20/2022 13:27 Co-signature as Attending Physician, Kareem Mccann MD I agree with the assessment and c rivera plan of care. Signatures: Dispatcher [employer] EDKareem Roca MD MD cha Smirch, Shelby RN RN ss Kareem Brower PA PA cp Garcia, Cindy, RN RN cg Thao Kenny RN RN ko1 Yesi Rahman PA-C PALa [id number] Merlyn mckeon RN RN pf1 Corrections: (The following items were deleted from the chart) 07/16 17:40 16:12 Abdomen Pelvis W Con+CT.RAD.BRZ ordered. EDMS EDMS 17:41 17:38 Abdomen ordered. EDMS EDMS 21:07 20:55 Yesi Rahman cp cp 21:35 20:55 Telemetry/MedSurg (Inpatient) cp cg 21:35 20:55 cp cg 07/17 07:08 07/16 21:35 [facility] ER HOLD cg ss 07/17 07:08 07/16 21:35 ERHOLD- cg
[2022-07-16] MEDS ORDERED: ACETAMINOPHEN 500 MG TAB ONE (21:24)
[2022-07-16] MEDS ORDERED: NA CHLORIDE 0.9% 100 ML IV ONE (21:24)
[2022-07-16] MEDS ORDERED: PIPERACIL/TAZO 3.375 GM VIAL IV ONE (21:24)
--- NOTE | 2022-07-16 21:24 | P.HP ---
Certification for Inpatient Patient admitted to: Inpatient With expected LOS: <2 Midnights Patient will require the following post-hospital care: None Practitioner: I am a practitioner with admitting privileges, knowledge of patient current condition, hospital course, and medical plan of care. Services: Services provided to patient in accordance with Admission requirements found in Title 42 Section 412.3 of the Code of Federal Regulations Patient History Date of Service: 07/16/22 Primary Care Provider: Ryan Reason for admission: Acute Appendicitis History of Present Illness: Patient is a 46 year old male with past medical history of insulin dependent type 2 diabetes, ESRD on HD //, hypertension, and chronic anemia who presented to the ED with complaints of nausea, fever, diarrhea, and RLQ abdominal pain that began this morning. CT abdomen pelvis with PO contrast showed "thickened appendix is 17 mm with surrounding inflammation compatible with acute appendicitis." WBC within normal limits. Dr. Brizuela was contacted and will take patient to OR tomorrow. He was started on zosyn in the emergency department and will be admitted for further management. Allergies No Known Drug Allergies Allergy (Verified 11/24/19 04:29) Unknown Home Medications: Amlodipine [Norvasc*] 10 mg PO DAILY 11/24/19 Atorvastatin Calcium [Lipitor*] 10 mg PO DAILY 11/24/19 Furosemide 40 mg PO BID 11/24/19 Aspirin [Aspirin EC 81 MG] 81 mg PO DAILY 09/06/20 Cholecalciferol (Vitamin D3) [Vitamin D3] 5,000 units PO DAILY 09/06/20 Calcitrol [Rocaltrol*] 0.75 mcg PO ,,S 06/21/22 Doxazosin [Cardura*] 8 mg PO BID 06/21/22 Glimepiride [Amaryl*] 4 mg PO DAILY 06/21/22 Metoprolol Tartrate [Lopressor] 50 mg PO BID 06/21/22 Olmesartan Medoxomil [Benicar] 20 mg PO DAILY 06/21/22 Cefepime [Maxipime] 1 gm IV DAILY 9 Days #1 vial 06/25/22 Vancomycin 1 gm IV AFTER EACH DIALYSIS 14 Days #1 vial 06/25/22 - Past Medical/Surgical History Diabetic: Yes -: Diabetes mellitus type 2 -: Hypertension -: ESRD on HD (Dr. Garibay) -: Former tobacco use -: Anemia chronic disease -: COVID-19 pneumonia -: Right tibia sx r/t fx -: left AV fistula -: hemosplit -: peritoneal HD -: Osteo 5th toe left foot Psychosocial/ Personal History: Patient lives at home with his . - Family History Father -: Cancer Notes: mutiple myeloma Mother -: Diabetes - Social History Smoking Status: Former smoker Alcohol use: No CD- Drugs: No Caffeine use: Yes Place of Residence: Home Review of Systems General: Fever Gastrointestinal: Nausea, Abdominal Pain, Diarrhea Physical Examination - Vital Signs Temperature: 100.6 F Blood Pressure: 120/79 Pulse: 73 Respirations: 18 Pulse Ox (%): 98 - Physical Exam General: Alert, In no apparent distress HEENT: Atraumatic, PERRLA, EOMI, Sclerae nonicteric Neck: Supple, 2+ carotid pulse no bruit, No LAD, Without JVD or thyroid abnormality Respiratory: Clear to auscultation bilaterally, Normal air movement Cardiovascular: Regular rate/rhythm, Normal S1 S2 Gastrointestinal: Non-distended, Tenderness (RLQ), Rebound, Guarding Musculoskeletal: No tenderness Integumentary: No rashes Neurological: Normal speech, Normal strength at 5/5 x4 extr, Normal tone, Normal affect - Studies Laboratory Data (last 24 hrs) 07/16/22 16:20: Sodium 134 L, Potassium 3.7, BUN 47 H, Creatinine 9.17 H*, Glucose 227 H, Magnesium 2.0, Total Bilirubin 0.7, AST 18, ALT 25, Alkaline Phosphatase 95, Lipase 76 07/16/22 16:20: WBC 8.60, Hgb 10.6 L, Hct 30.5 L, Plt Count 142 L Assessment and Plan - Problems (Diagnosis) (1) Acute appendicitis Current Visit: Yes Status: Acute Qualifiers: Acute appendicitis type: with localized peritonitis Appendicitis gangrene presence: without gangrene Appendicitis perforation presence: without perforation Appendicitis abscess presence: without abscess Qualified Code(s): K35.30 - Acute appendicitis with localized peritonitis, without perforation or gangrene (2) ESRD (end stage renal disease) Current Visit: Yes Status: Chronic (3) Anemia Current Visit: Yes Status: Chronic Qualifiers: Anemia type: due to chronic kidney disease Chronic kidney disease stage: on chronic dialysis Qualified Code(s): N18.6 - End stage renal disease; D63.1 - Anemia in chronic kidney disease; Z99.2 - Dependence on renal dialysis (4) Diabetes Current Visit: Yes Status: Chronic Qualifiers: Diabetes mellitus type: type 2 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 Dr. Brizuela consulted, to take patient to OR tomorrow. Dr. Garibay consulted for HD. Last HD on Saturday. Continue IV zoysn. Patient does NOT meet sepsis criteria. NPO at midnight. Pain control and antiemetics as needed. Monitor and replete electrolytes per protocol. Reconcile and continue home medications. SCDs for VTE prophylaxis. Full code. Discharge Plan: Home Plan to discharge in: 48 Hours - Advance Directives Does patient have a Living Will: No Does patient have a Durable POA for Healthcare: No - Code Status/Comfort Care Code Status Assessed: Yes Code Status: Full Code Physician Review: Patient Assessed, Agree with Above Assessment and Plan Critical Care: No Time Spent Managing Pts Care (In Minutes): 50
[2022-07-16] MEDS ORDERED: MORPHINE 4 MG/ML SYR IV PRN (23:42)
[2022-07-16] MEDS: INSULIN -REGULAR HUMAN 50 UNIT/0.5 ML ML SQ SCH (23:53)
[2022-07-17] MEDS ORDERED: HYDRALAZINE HCL 20 MG/ML VIAL IV PRN (01:21)
[2022-07-17] MEDS ORDERED: HYDRALAZINE HCL 20 MG/ML VIAL ONE (01:55)
[2022-07-17 02:55] LABS: Absolute Lymphocytes (CBC) 0.7 K/uL (0.7-4.9); Hematocrit 32.6 % (39.6-49.0); Lymphocytes % 8.9 % (15.3-44.8); MCV 87.1 fL (80-100); MPV 7.8 fL (7.6-11.3); RBC Red Blood Cell Count 3.74 M/uL (4.33-5.43)
[2022-07-17 03:19] LABS: Phosphorus 6.5 mg/dL (2.5-4.9); Potassium 3.9 mmol/L (3.5-5.1)
[2022-07-17 03:44] VITALS: BMI 31.4
[2022-07-17] MEDS ORDERED: ONDANSETRON 4 MG/2 ML VIAL ONE ×2 (04:21→10:15)
[2022-07-17] MEDS ORDERED: ONDANSETRON 4 MG/2 ML VIAL IV PRN (04:21)
[2022-07-17] MEDS ORDERED: ACETAMINOPHEN 500 MG TAB PO ONE (04:26)
[2022-07-17] MEDS ORDERED: ACETAMINOPHEN 500 MG TAB ONE (04:29)
[2022-07-17] MEDS ORDERED: PIPER TAZO 3.375 GM in NA CHLORIDE 0.9% 100 ML IV SCH ×4 (05:00)
[2022-07-17] MEDS: INSULIN -REGULAR HUMAN 50 UNIT/0.5 ML ML SQ SCH ×4 (05:54→22:20)
[2022-07-17] MEDS ORDERED: NA CHLORIDE 0.9% 500 ML ONE (09:19)
[2022-07-17] MEDS: PIPER TAZO 3.375 GM in NA CHLORIDE 0.9% 100 ML IV SCH ×2 (09:30→22:21)
[2022-07-17] MEDS ORDERED: D50W 25 GM/50 ML SYRINGE IV ONE (09:51)
[2022-07-17] MEDS ORDERED: KETOROLAC 30 MG/ML INJ ONE (10:15)
[2022-07-17] MEDS ORDERED: dexAMETHasone 10 MG/ML VIAL ONE (10:15)
[2022-07-17] MEDS ORDERED: ROCURONIUM 50 MG/5 ML VIAL IV ONE (10:15)
[2022-07-17] MEDS ORDERED: FENTANYL CITR 100 MCG/2 ML ONE (10:15)
[2022-07-17] MEDS ORDERED: MIDAZOLAM HCL 2 MG/2 ML INJ ONE (10:15)
[2022-07-17] MEDS ORDERED: propofoL 200 MG/20 ML VIAL IV ONE (10:15)
[2022-07-17] MEDS ORDERED: LIDOCAINE 2% MPF 5 ML VIAL ONE (10:16)
[2022-07-17] MEDS ORDERED: BUPIVACAINE 0.25% PF 30 ML VIAL ONE (10:16)
[2022-07-17] MEDS ORDERED: SUCCINYLCHOLINE 20 MG/ML (10 ML) IV ONE (10:28)
[2022-07-17] MEDS ORDERED: SUGAMMADEX SODIUM 200 MG/2 ML VIAL IV ONE (11:25)
--- NOTE | 2022-07-17 11:29 | P.OP ---
Preoperative diagnosis: Acute Appendicitis Postoperative diagnosis: Acute Suppurative Appendicitis Primary procedure: Laparoscopic Appendectomy Anesthesia: GETA + Local Estimated blood loss: <20cc Specimen: appendix Findings: suppurative changes, thick adhesions Complications: None Transferred to: Recovery Room Condition: Good
--- NOTE | 2022-07-17 13:26 | P.PN ---
Subjective Date of Service: 07/17/22 Primary Care Provider: Ryan Chief Complaint: Acute Appendicitis Patient complaining of intermittent abdominal pain. He is planned for lap appendectomy today. Physical Examination - Vital Signs Temperature: 98.9 F Blood Pressure: 134/64 Pulse: 74 Respirations: 16 Pulse Ox (%): 97 - Physical Exam General: Alert, In no apparent distress, Oriented x3 HEENT: Mucous membr. moist/pink Neck: JVD not distended Respiratory: Clear to auscultation bilaterally, Normal air movement Cardiovascular: No edema, Regular rate/rhythm, Normal S1 S2 Gastrointestinal: Soft and benign, Non-distended, Tenderness (Right lower quadrant) Musculoskeletal: No swelling, No tenderness Integumentary: No rashes, No erythema, No cyanosis Neurological: Normal speech, Normal strength at 5/5 x4 extr - Studies Laboratory Data (last 24 hrs) 07/16/22 16:20: Sodium 134 L, Potassium 3.7, BUN 47 H, Creatinine 9.17 H*, Glucose 227 H, Magnesium 2.0, Total Bilirubin 0.7, AST 18, ALT 25, Alkaline Phosphatase 95, Lipase 76 07/16/22 16:20: WBC 8.60, Hgb 10.6 L, Hct 30.5 L, Plt Count 142 L Assessment And Plan - Current Problems (Diagnosis) (1) Acute appendicitis Current Visit: Yes Status: Acute Qualifiers: Acute appendicitis type: with localized peritonitis Appendicitis gangrene presence: without gangrene Appendicitis perforation presence: without perforation Appendicitis abscess presence: without abscess Qualified Code(s): K35.30 - Acute appendicitis with localized peritonitis, without perforation or gangrene (2) Diabetes Current Visit: Yes Status: Chronic Qualifiers: Diabetes mellitus type: type 2 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 Continue antibiotics. Pain medications as needed. Nephrology consulted for hemodialysis. Supportive measures. Insulin sliding scale for glucose management.
--- NOTE | 2022-07-17 14:07 | CON ---
Date of Consultation: 07/17/2022 Brief History Of Present Illness: The patient is a 46-year-old male, known to me from previous debri roberto of bilateral feet wounds in June, who presents to the hospital with complaints of abdomina l pain, nausea, fever, diarrhea, and pain localized now to the right lower quadrant, beginning earlie r in the day. He states that the pain got significantly worse. As such, he was transferred to the E with the above-stated complaints. Past Medical History: Positive for diabetes, hypertension, end-stage renal disease, seen by Dr. Selvin ritchie, tobacco abuse history, chronic anemia, COVID-19 pneumonia in the past. Past Surgical History: Right tibia surgery, left AV fistula, HemoSplit catheters, peritoneal hemodia lysis. He has had osteomyelitis of the feet in the past requiring surgery. He has had debridement o f bilateral fifth toe metatarsal wounds and right medial heel wound for diabetic foot infections. Family History: Significant for multiple myeloma. Family History: Mother had diabetes. Social History: Smoking history, he is a former smoker. Denies alcohol or recreational drug use Review of Systems: Ten-point review of systems other than HPI, denies. Physical Examination: Vital Signs: At the time of my examination; temperature was 100.6, blood pressure 120/79, pulse 73, respiratory rate 18, temperature 98.0. General: He is awake, alert, and oriented. Psychiatric: Appropriate, conversive. HEENT: He is normocephalic. Sclerae anicteric. Mucous membranes are moist. Oropharynx is clear. Neck: Supple without JVD. Chest: Normal expansion and excursion. Cardiovascular: Regular rate and rhythm. Pulmonary: Clear to auscultation bilaterally. Abdomen: Soft with positive right lower quadrant tenderness to palpation. Positive focal peritoniti s at McBurney's point. Positive guarding. Positive rebound consistent with possible appendicitis. Extremities: Fistula noted left upper extremity. No additional changes. No edema. Laboratory Data: He had a laboratory exam, which revealed a white blood cell count of 8.6, hemoglobi n is 10.6, hematocrit 30.5, platelet count is 142, neutrophils are 82%. His sodium is 134, potassium 3.7, chloride 99, carbon dioxide 28, BUN is 47, creatinine 9.1, glucose was 227, calcium was 8.8. A ST, ALT 25, alkaline phosphatase 95, lipase is 76. COVID and influenza A and B were all negative. Carlos Alberto gomez had imaging performed, which included a CT of the abdomen and pelvis performed on 07/16/2022, offic ially read as acute appendicitis, porcelain gallbladder, specifically the appendix is thickened measu ring 17 mm with surrounding inflammation compatible with acute appendicitis. Assessment And Plan: This is a 46-year-old male, who presents with signs and symptoms of acute nonpe rforated appendicitis. 1.IV fluid hydration. 2.Antibiotic coverage with Zosyn 3.375. 3.Medical management per primary team. 4.I have explained risks, benefits, and alternatives of laparoscopic possible open appendectomy incl uding, but not limited to bleeding, infection, damage to surrounding tissues, need for further operat ion and procedures. The patient agrees to proceed as indicated. MARIBEL/EVITA Voice ID: [id number] Report ID: [id number]
--- NOTE | 2022-07-17 16:51 | P.CNS ---
Date of Consult: 07/17/22 Reason for Consult: ESRD Requesting Physician: david waller Primary Care Provider: Ryan Chief Complaint: Acute Appendicitis History of Present Illness: Patient is a 46 year old male with past medical history of insulin dependent type 2 diabetes, ESRD on HD T//, hypertension, and chronic anemia who presented to the ED with complaints of nausea, fever, diarrhea, and RLQ abdominal pain that began this morning. CT abdomen pelvis with PO contrast showed "thickened appendix is 17 mm with surrounding inflammation compatible with acute appendicitis." WBC within normal limits. Dr. Brizuela was contacted and will take patient to OR tomorrow. He was started on zosyn in the emergency department and will be admitted for further management. 16:05 This 46 yrs old Male presents to ER via EMS with complaints of Abdominal Pain. cp 16:05 The patient presents with abdominal pain right lower quadrant. Onset: The cp symptoms/episode began/occurred this morning, about 0400. Associated signs and symptoms: Pertinent positives: diarrhea, fever, nausea. Allergies No Known Drug Allergies Allergy (Verified 11/24/19 04:29) Unknown Home medications list reviewed: Yes Home Medications: Amlodipine [Norvasc*] 10 mg PO DAILY 11/24/19 Atorvastatin Calcium [Lipitor*] 10 mg PO DAILY 11/24/19 Furosemide 40 mg PO BID 11/24/19 Aspirin [Aspirin EC 81 MG] 81 mg PO DAILY 09/06/20 Cholecalciferol (Vitamin D3) [Vitamin D3] 5,000 units PO DAILY 09/06/20 Calcitrol [Rocaltrol*] 0.75 mcg PO ,,S 06/21/22 Doxazosin [Cardura*] 8 mg PO BID 06/21/22 Glimepiride [Amaryl*] 4 mg PO DAILY 06/21/22 Metoprolol Tartrate [Lopressor] 50 mg PO BID 06/21/22 Olmesartan Medoxomil [Benicar] 20 mg PO DAILY 06/21/22 Cefepime [Maxipime] 1 gm IV DAILY 9 Days #1 vial 06/25/22 Vancomycin 1 gm IV AFTER EACH DIALYSIS 14 Days #1 vial 06/25/22 - Past Medical/Surgical History Diabetic: Yes -: Diabetes mellitus type 2 -: Hypertension -: ESRD on HD (Dr. Garibay) -: Former tobacco use -: Anemia chronic disease -: COVID-19 pneumonia -: Right tibia sx r/t fx -: left AV fistula -: hemosplit -: peritoneal HD -: Osteo 5th toe left foot Psychosocial/ Personal History: Patient lives at home with his . - Family History Father Medical History: Cancer Notes: mutiple myeloma Mother Medical History: Diabetes - Social History Smoking Status: Unknown if ever smoked Alcohol use: No CD- Drugs: No Caffeine use: Yes Place of Residence: [place] Review of Systems 10-point ROS is otherwise unremarkable General: Weakness Gastrointestinal: Abdominal Pain Physical Examination Temp Pulse Resp BP Pulse Ox 98.6 F 70 18 168/76 H 92 07/17/22 16:00 07/17/22 16:00 07/17/22 16:00 07/17/22 16:00 07/17/22 16:00 General: Oriented x3, Cooperative HEENT: Atraumatic Neck: Supple Respiratory: Clear to auscultation bilaterally Cardiovascular: Regular rate/rhythm, Edema Gastrointestinal: Non-distended, Tenderness Musculoskeletal: No clubbing, No contractures Integumentary: No cyanosis Neurological: Normal speech Laboratory Data (last 24 hrs) 07/16/22 16:20: Sodium 134 L, Potassium 3.7, BUN 47 H, Creatinine 9.17 H*, Glucose 227 H, Magnesium 2.0, Total Bilirubin 0.7, AST 18, ALT 25, Alkaline Phosphatase 95, Lipase 76 Imagings Data: EXAM DESCRIPTION: CT - Abdomen Pelvis Wo Contrast - 07/16/2022 8:12 pm CLINICAL HISTORY: Abdominal pain. RLQ pain, po contrast only COMPARISON: CT ABD PELVIS W CONTRAST dated 06/30/2014 TECHNIQUE: CT imaging of the abdomen and pelvis was performed without contrast. Solid organ, bowel and vascular assessment is limited due to lack of IV and oral contrast. All CT scans are performed using dose optimization technique as appropriate and may include automated exposure control or mA/KV adjustment according to patient size. FINDINGS: The lower lung fontenot are clear.Porcelain gallbladder noted. The liver, spleen, pancreas, adrenal glands and kidneys are within normal limits for a limited non-contrast examination. No bowel obstruction, free air, free fluid or abscess. There is thickened appendix is 17 mm with surrounding inflammation compatible with acute appendicitis. The osseous structures are within normal limits.Significant atherosclerosis is present. IMPRESSION: Acute appendicitis. Porcelain gallbladder. A limited non-contrast examination was performed as detailed. Conclusions/Impression: ESRD on HD TTS -Acute HD in the AM HTN with CKD/ CHF -Start Metoprolol BID -Restart the other home medications as indicated Diastolic CHF, chronic LE Edema -Low sodium diet -Acute HD with UF DM II with CKD & Polyneuropathy -RISS Anemia in CKD -Monitor H&H -Retacrit prn CKD MBD -Start Renvela -Start Ergo Appendicitis sp appendectomy this morning -Follow up with surgery -Continue abx Thank you kindly for the consultation
--- NOTE | 2022-07-17 17:04 | OP ---
Date of Procedure: 07/17/2022 Surgeon: Junior Brizuela MD, Preoperative Diagnosis: Acute perforated appendicitis. Postoperative Diagnosis: Acute suppurative appendicitis. Procedures: 1.Laparoscopic appendectomy. 2.Laparoscopic adhesiolysis. Anesthesia: General endotracheal plus local with 0.25% Marcaine. Estimated Blood Loss: Less than 20 cc. Specimen: Vermiform appendix. Findings: Suppurative changes, thick adhesions to the right lower quadrant, multiple small bowel adh esions noted in the area surrounding the area requiring extensive meticulous adhesiolysis. Complications: None. Disposition: The patient was transferred to the recovery room in good condition. Procedure In Detail: After informed consent was obtained, the patient was brought into the operating room, prepped and draped in the usual sterile fashion after adequate anesthesia was achieved. The s upraumbilical area was anesthetized with 0.25% Marcaine, sharply incised. A 5 mm trocar was placed u nder direct visualization without evidence of complication. Insufflation was obtained to 15 mmHg. A t this time, there was no injury to vital structure upon entry into the abdomen. Two additional troc ars were placed, 1 to the right of midline in the suprapubic area, 1 to the left lower quadrant. Bot h of these were similarly anesthetized, sharply incised. A 5 mm trocar was placed under direct visua lization without evidence of complication. The umbilical trocar was then upsized to [address] visualization without evidence of complication. The patient was positioned head down right side u p position. A grasper was used to dissect the small bowel off the anterior surface of the colon. Th ere were significant adhesions in this area requiring meticulous dissection using a combination of bl unt dissection as well as LigaSure device. After this was performed, a mesenteric window was created with a LigaSure device. Endo-VENKATA 60 dior load fired across the base of the appendix with good approx imation of tissues. The LigaSure was then used to take the mesoappendix down without evidence of com plication. The appendix was placed in EndoCatch bag, removed through the umbilical trocar, and sent off for pathological examination. Suppurative changes were noted in the right lower quadrant. This was irrigated out in its entirety using suction and irrigation device. The abdomen was completely cl eansed and suctioned out until completely dry. The patient was back to neutral position. Clips were found to be in good anatomic position. The remaining of food was suctioned out. The Claude-Thomaso n was then used to close the umbilical trocar site. The abdomen was completely desufflated under dir ect visualization without evidence of complication. Remaining trocars were removed under direct visu alization without evidence of complication. The abdomen was completely desufflated. All skin incisi ons were then copiously irrigated and closed with a 4-0 Monocryl in a running fashion. Dermabond yogesh silviano over top. The patient tolerated the procedure well without evidence of complication and transfer red to PACU in good condition. All counts were correct at the end of the case. MARIBEL/EVITA Voice ID: [id number] Report ID: [id number]
[2022-07-17] MEDS ORDERED: MANNITOL 25% 12.5 GM/50 ML VIAL IV PRN (19:44)
[2022-07-17] MEDS ORDERED: NA CHLORIDE 0.9% 1,000 ML IV PRN (19:44)
[2022-07-17] MEDS ORDERED: ALBUMIN HUMAN 25% 50 ML IV SCH (20:00)
[2022-07-17] MEDS ORDERED: DRISDOL (VITAMIN D=ERGOCALCIFEROL) 50000 UNIT CAP PO SCH (20:00)
[2022-07-17] MEDS: DOCUSATE NA 100 MG CAP PO SCH ×2 (21:00→22:27)
[2022-07-17] MEDS: LACTOBACILLUS/ACIDOPHILUS TAB PO SCH (22:19)
[2022-07-17] MEDS: METOPROLOL TAR 25 MG TAB PO SCH (22:20)
[2022-07-18 02:36] VITALS: O2SAT 95
[2022-07-18 04:52] VITALS: BP 179/85; TEMP 97.3
[2022-07-18 06:17] LABS: Absolute Lymphocytes (CBC) 0.7 K/uL (0.7-4.9); Hematocrit 28.5 % (39.6-49.0); MCV 87.8 fL (80-100); MPV 8.2 fL (7.6-11.3); RBC Red Blood Cell Count 3.24 M/uL (4.33-5.43)
[2022-07-18 06:41] LABS: Albumin 2.7 g/dL (3.4-5.0); Bilirubin Total 0.7 mg/dL (0.2-1.0); Potassium 4.3 mmol/L (3.5-5.1); Protein, Total 7.6 g/dL (6.4-8.2)
[2022-07-18] MEDS: INSULIN -REGULAR HUMAN 50 UNIT/0.5 ML ML SQ SCH ×2 (07:30→11:30)
[2022-07-18] MEDS ORDERED: SEVELAMER CARBONATE 800 MG TABLET PO SCH ×2 (08:00→12:00)
--- NOTE | 2022-07-18 08:19 | P.PN ---
Subjective Date of Service: 07/18/22 Primary Care Provider: Ryan Chief Complaint: Acute Appendicitis Subjective: Improving (patient feels much better, passing gas, tolerated diet.) Physical Examination - Vital Signs Temperature: 97.3 F Blood Pressure: 179/85 Pulse: 77 Respirations: 17 Pulse Ox (%): 96 - Physical Exam General: Alert, In no apparent distress, Cachectic Respiratory: Clear to auscultation bilaterally Cardiovascular: Regular rate/rhythm Gastrointestinal: Other (soft, mild appropriate TTP, ND, incisions clean and dry.) Assessment And Plan - Current Problems (Diagnosis) (1) Acute appendicitis Current Visit: Yes Status: Acute Plan: - ok to DC from surgical standpoint - norco RX sent in from my office - recommend 5 days karly ray - follow up in my clinic in 1 week for foot wound care and post op appendectomy care - post op instructions reviewed with patient - medical management per primary team Qualifiers: Acute appendicitis type: with localized peritonitis Appendicitis gangrene presence: without gangrene Appendicitis perforation presence: without perforation Appendicitis abscess presence: without abscess Qualified Code(s): K35.30 - Acute appendicitis with localized peritonitis, without perforation or gangrene Physician Review: Patient Assessed, Agree with Above Assessment and Plan
[2022-07-18] MEDS: METOPROLOL TAR 25 MG TAB PO SCH (08:23)
[2022-07-18] MEDS: PIPER TAZO 3.375 GM in NA CHLORIDE 0.9% 100 ML IV SCH (08:24)
[2022-07-18] MEDS: LACTOBACILLUS/ACIDOPHILUS TAB PO SCH (08:24)
[2022-07-18] MEDS: DOCUSATE NA 100 MG CAP PO SCH (08:24)
--- NOTE | 2022-07-18 08:54 | P.DS ---
Admission Date: 07/16/22 Discharge Date: 07/18/22 Primary Care Provider: Ryan Disposition: ROUTINE DISCHARGE Discharge Condition: GOOD Reason for Admission: Acute Appendicitis - Problems (1) Acute appendicitis Current Visit: Yes Status: Acute Qualifiers: Acute appendicitis type: with localized peritonitis Appendicitis gangrene presence: without gangrene Appendicitis perforation presence: without perforation Appendicitis abscess presence: without abscess Qualified Code(s): K35.30 - Acute appendicitis with localized peritonitis, without perforation or gangrene (2) Diabetes Current Visit: Yes Status: Chronic Qualifiers: Diabetes mellitus type: type 2 Diabetes mellitus fdc insulin use: without fdc use Diabetes mellitus complication status: with hyperglycemia Qualified Code(s): E11.65 - Type 2 diabetes mellitus with hyperglycemia (3) ESRD (end stage renal disease) Current Visit: Yes Status: Chronic Brief History of Present Illness: Patient is a 46 year old male with past medical history of insulin dependent type 2 diabetes, ESRD on HD T//, hypertension, and chronic anemia who presented to the ED with complaints of nausea, fever, diarrhea, and RLQ abdominal pain that began this morning. CT abdomen pelvis with PO contrast showed "thickened appendix is 17 mm with surrounding inflammation compatible with acute appendicitis." WBC within normal limits. Dr. Brizuela was contacted who recommended admission for lap appendectomy. He was started on zosyn in the emergency department and admitted for further management. Hospital Course: Patient admitted to the medical floor, started on IV Zosyn and was seen by Dr. Brizuela who performed lap appendectomy. Postop diagnosis was acute supparative appendicitis Patient was monitored overnight after surgery and treated with antibiotics. He tolerated diet and ambulatory. He was seen by nephrology for hemodialysis. He underwent a session of hemodialysis today. Patient is deemed clinically stable for discharge. He will follow with Dr. Brizuela in the office. Dr. Brizuela will also check his left foot wound during the office visit. He prescribed Levaquin and Flagyl. Vital Signs/Physical Exam: Temp Pulse Resp BP Pulse Ox 97.3 F 77 17 179/85 H 96 07/18/22 08:19 07/18/22 08:23 07/18/22 08:19 07/18/22 08:23 07/18/22 08:19 General: Alert, In no apparent distress, Oriented x3 HEENT: Mucous membr. moist/pink Neck: JVD not distended Respiratory: Clear to auscultation bilaterally, Normal air movement Cardiovascular: No edema, Regular rate/rhythm, Normal S1 S2 Gastrointestinal: Soft and benign, Non-distended Musculoskeletal: No swelling Integumentary: No rashes Neurological: Normal strength at 5/5 x4 extr Laboratory Data at Discharge: WBC 7.50 K/uL (4.3-10.9) 07/18/22 05:56 Hgb 10.3 g/dL (13.6-17.9) L D 07/18/22 05:56 Hct 28.5 % (39.6-49.0) L 07/18/22 05:56 Plt Count 127 K/uL (152-406) L 07/18/22 05:56 Sodium 133 mmol/L (136-145) L 07/18/22 05:56 Potassium 4.3 mmol/L (3.5-5.1) 07/18/22 05:56 BUN 73 mg/dL (7-18) H 07/18/22 05:56 Creatinine 12.00 mg/dL (0.70-1.30) H* 07/18/22 05:56 Glucose 239 mg/dL (74-106) H 07/18/22 05:56 Phosphorus 6.5 mg/dL (2.5-4.9) H 07/17/22 01:57 Magnesium Cancelled 07/17/22 15:20 Total Bilirubin 0.7 mg/dL (0.2-1.0) 07/18/22 05:56 AST 14 U/L (15-37) L 07/18/22 05:56 ALT 18 U/L (16-61) 07/18/22 05:56 Alkaline Phosphatase 81 U/L (45-117) 07/18/22 05:56 Lipase 76 U/L (73-393) 07/16/22 16:20 Home Medications: Amlodipine [Norvasc*] 10 mg PO DAILY 11/24/19 Atorvastatin Calcium [Lipitor*] 10 mg PO DAILY 11/24/19 Furosemide 40 mg PO BID 11/24/19 Aspirin [Aspirin EC 81 MG] 81 mg PO DAILY 09/06/20 Cholecalciferol (Vitamin D3) [Vitamin D3] 5,000 units PO DAILY 09/06/20 Calcitrol [Rocaltrol*] 0.75 mcg PO T,TH,S 06/21/22 Doxazosin [Cardura*] 8 mg PO BID 06/21/22 Glimepiride [Amaryl*] 4 mg PO DAILY 06/21/22 Metoprolol Tartrate [Lopressor] 50 mg PO BID 06/21/22 Olmesartan Medoxomil [Benicar] 20 mg PO DAILY 06/21/22 Cefepime [Maxipime] 1 gm IV DAILY 9 Days #1 vial 06/25/22 Vancomycin 1 gm IV AFTER EACH DIALYSIS 14 Days #1 vial 06/25/22 Heparin [Heparin 1,000 units/mL *] 6,000 unit IV EVERY HD PRN vial 07/18/22 Mannitol 25% [Mannitol*] 12.5 gm IV EVERY HD PRN vial 07/18/22 Sevelamer Carbonate [Renvela*] 800 mg PO TIDWM #30 tab 07/18/22 Vitamin D [Drisdol*] 50,000 unit PO Q7D #4 cap 07/18/22 levoFLOXacin [Levaquin] 750 mg PO DAILY #5 tab 07/18/22 metroNIDAZOLE [Flagyl] 500 mg PO Q8H #15 tab 07/18/22 New Medications: Vitamin D [Drisdol*] 50,000 unit PO Q7D #4 cap metroNIDAZOLE [Flagyl] 500 mg PO Q8H #15 tab levoFLOXacin [Levaquin] 750 mg PO DAILY #5 tab Sevelamer Carbonate [Renvela*] 800 mg PO TIDWM #30 tab Diet: Renal Activity: No lifting more than 10 lbs Followup: Junior Brizuela MD [ACTIVE - CAN ADMIT] - Todd Davis DO [Primary Care Provider] - Time spent managing pt's care (in minutes): 34
[2022-07-18] MEDS ORDERED: DRISDOL (VITAMIN D=ERGOCALCIFEROL) 50000 UNIT CAP PO SCH (09:00)
--- NOTE | 2022-07-18 10:58 | P.PN ---
Nephrology note (S) Pt reports doing fair, no sig pain, lap port sites c/d, BP mod elevated. No N/V reported. General: Oriented x3, Cooperative HEENT: Atraumatic, sclera anicteric Neck: Supple Respiratory: Clear to auscultation bilaterally mostly Cardiovascular: Regular rate/rhythm, mild peripheral edema Gastrointestinal: Soft, ND, lap port incision sites c/d Musculoskeletal: No clubbing, No contractures, both feet wrapped Integumentary: No cyanosis noted Neurological: Normal speech, awake, alert Laboratory Data (last 24 hrs) Reviewed Imagings Data: EXAM DESCRIPTION: CT - Abdomen Pelvis Wo Contrast - 07/16/2022 8:12 pm CLINICAL HISTORY: Abdominal pain. RLQ pain, po contrast only COMPARISON: CT ABD PELVIS W CONTRAST dated 06/30/2014 TECHNIQUE: CT imaging of the abdomen and pelvis was performed without contrast. Solid organ, bowel and vascular assessment is limited due to lack of IV and oral contrast. All CT scans are performed using dose optimization technique as appropriate and may include automated exposure control or mA/KV adjustment according to patient size. FINDINGS: The lower lung fontenot are clear.Porcelain gallbladder noted. The liver, spleen, pancreas, adrenal glands and kidneys are within normal limits for a limited non-contrast examination. No bowel obstruction, free air, free fluid or abscess. There is thickened appendix is 17 mm with surrounding inflammation compatible with acute appendicitis. The osseous structures are within normal limits.Significant atherosclerosis is present. IMPRESSION: Acute appendicitis. Porcelain gallbladder. A limited non-contrast examination was performed as detailed. Conclusions/Impression: ESRD on HD TTS -HD today per OP schedule, will address azotemia with metab clearance on dialysis HTN with CKD/ CHF -Resume home meds including ARB and CCB, give doses this AM Diastolic CHF, chronic -UF on dialysis as tolerated DM II with hyperglycemia -Reports was on a sulfonylurea before but may have dropped off while in [place], BG > 200 this AM, will restart at 2 mg qd and titrate as tolerated vs adding a DPP-IV inhibitor if not contraindicated or other. Anemia in CKD -Target Hb of 10-11 as OP Gary Carrasco MD, ERIK
[2022-07-18] MEDS ORDERED: VALSARTAN 80 MG TAB PO SCH (11:00)
[2022-07-18] MEDS ORDERED: AMLODIPINE 10 MG TAB PO SCH (11:00)
[2022-07-18] MEDS ORDERED: GLIMEPIRIDE 2 MG TABLET PO SCH (12:00)
== END 2022-07-18 16:07 | disposition home or self-care (01) | DRG 335 ==
LOC: ER 15:24 → ERHOLD 21:10 → 2ND 07-17 08:34
PROVIDERS: ADMIT Internal Medicine; ATTEND Internal Medicine
PROC: 0DN84ZZ Release Small Intestine, Percutaneous Endoscopic Approach (ICD-10-PCS; 2022-07-17)
PROC: 0DTJ4ZZ Resection of Appendix, Percutaneous Endoscopic Approach (ICD-10-PCS; 2022-07-17)
PROC: 5A1D70Z Performance of Urinary Filtration, Intermittent, Less than 6 Hours Per Day (ICD-10-PCS; principal; 2022-07-18)
DX: K35.30 Acute appendicitis with localized peritonitis, without perforation or gangrene (principal); N18.6 End stage renal disease; I50.32 Chronic diastolic (congestive) heart failure; I13.2 Hypertensive heart and chronic kidney disease with heart failure and with stage 5 chronic kidney disease, or end stage renal disease; R64 Cachexia; E11.22 Type 2 diabetes mellitus with diabetic chronic kidney disease; E11.65 Type 2 diabetes mellitus with hyperglycemia; E11.42 Type 2 diabetes mellitus with diabetic polyneuropathy; D63.1 Anemia in chronic kidney disease; Z99.2 Dependence on renal dialysis; Z68.31 Body mass index [BMI] 31.0-31.9, adult; Z79.82 Long term (current) use of aspirin; Z79.84 Long term (current) use of oral hypoglycemic drugs; Z86.16 Personal history of COVID-19; Z79.899 Other long term (current) drug therapy; Z87.891 Personal history of nicotine dependence; Z20.822 Contact with and (suspected) exposure to COVID-19
CPT/HCPCS: 0240U; 36415; 71045; 74176; 80048; 80053; 82947; 83690; 83735; 83880; 84100; 84484; 85025; 85610; 85730; 88304; 90935; 93005; 96365; 96375; 99284; 99285; J0330; J0360; J1100; J1644; J1815; J2001; J2250; J2405; J2543; J2704; J3010; J7040

== ENCOUNTER 2024-04-13 12:44 | Inpatient (IN) | payer BC, OTHER ==
[2024-04-13] MEDS ORDERED: HYDRALAZINE HCL 25 MG TABLET ONE ×2 (14:03→17:01)
[2024-04-13] MEDS ORDERED: VANCOMYCIN 1 GM/VIAL ONE (14:03)
[2024-04-13] MEDS ORDERED: FENTANYL CITR 100 MCG/2 ML ONE (14:04)
[2024-04-13] MEDS ORDERED: NA CHLORIDE 0.9% 0 ML ONE (14:04)
[2024-04-13] MEDS ORDERED: NA CHLORIDE 0.9% 100 ML ONE (14:04)
[2024-04-13] MEDS ORDERED: PIPERACIL/TAZO 3.375 GM VIAL IV ONE ×2 (14:05→15:17)
--- NOTE | 2024-04-13 14:25 | RAD REPORT ---
EXAMINATION: US LOWER EXTREMITY VENOUS DOPPLER BILATERAL CLINICAL INDICATION: Male, 48 years old.Pain;Swelling TECHNIQUE: Complete bilateral duplex sonography of the lower extremity veins was performed. The exami nation included compression for vein patency, color Doppler imaging and flow augmentation in response to distal compression of the distal external iliac, common femoral, femoral, popliteal, darien lorenza, tibial and great saphenous veins. [id number]. COMPARISON: No prior exams FINDINGS: Duplex sonography imaging demonstrates all deep examined to be fully compressible with spontaneous, p hasic and augmented flow bilaterally. IMPRESSION: No evidence of deep venous thrombosis seen in either lower extremity.
--- NOTE | 2024-04-13 14:42 | EDPHYS ---
Physician Documentation [facility] Name: Nikita Bartlett Age: 48 yrs Sex: Male : 1975 Arrival Date: 04/13/2024 Time: 12:44 Bed 14 Private MD: ED Physician Kareem Mccann HPI: 04/13 14:31 This 48 yrs old Male presents to ER via EMS with complaints of Leg Swelling, nishant Foot Pain, Wound Check. 14:31 The patient presents with an abscess, decreased range of motion, pain, swelling, nishant tenderness. The complaints affect the left foot. Context: The problem was sustained at an unknown location, resulted from dfu. Onset: The symptoms/episode began/occurred 1 week(s) ago. Modifying factors: The symptoms are alleviated by elevation of extremity, the symptoms are aggravated by weight bearing, movement. Associated signs and symptoms: Pertinent positives: swelling, warmth. Severity of symptoms: At their worst the symptoms were moderate, in the emergency department the symptoms are unchanged. Historical: - Allergies: 12:45 No Known Allergies; db - PMHx: 12:45 Anemia; Enlarged Heart; Diabetes - NIDDM; Dialysis; osteomyelitis; Hypertension; db - PSHx: 12:45 ulcer repair; db - Immunization history:: Adult Immunizations unknown. - Infectious Disease History:: Denies. - Social history:: Smoking status: Patient denies any tobacco usage or history of. ROS: 14:32 Constitutional: Negative for fever, chills, and weight loss, Eyes: Negative for injury, nishant pain, redness, and discharge, ENT: Negative for injury, pain, and discharge, Neck: Negative for injury, pain, and swelling, Cardiovascular: Negative for chest pain, palpitations, and edema, Respiratory: Negative for shortness of breath, cough, wheezing, and pleuritic chest pain, Abdomen/GI: Negative for abdominal pain, nausea, vomiting, diarrhea, and constipation, Back: Negative for injury and pain, : Negative for injury, bleeding, discharge, and swelling, Neuro: Negative for headache, weakness, numbness, tingling, and seizure, Psych: Negative for depression, anxiety, suicide ideation, homicidal ideation, and hallucinations, Allergy/Immunology: Negative for hives, rash, and allergies, Endocrine: Negative for neck swelling, polydipsia, polyuria, polyphagia, and marked weight changes, Hematologic/Lymphatic: Negative for swollen nodes, abnormal bleeding, and unusual bruising, 14:32 MS/extremity: Positive for pain, swelling, tenderness, warmth, of the arch of right foot and dorsum of right foot, 14:32 Skin: Positive for cellulitis, erythema, swelling, left forearm av fistula, Exam: 14:32 Constitutional: This is a well developed, well nourished patient who is awake, alert, nishant and in no acute distress. Head/Face: Normocephalic, atraumatic. Eyes: Pupils equal round and reactive to light, extra-ocular motions intact. Lids and lashes normal. Conjunctiva and sclera are non-icteric and not injected. Cornea within normal limits. Periorbital areas with no swelling, redness, or edema. ENT: Nares patent. No nasal discharge, no septal abnormalities noted. Tympanic membranes are normal and external auditory canals are clear. Oropharynx with no redness, swelling, or masses, exudates, or evidence of obstruction, uvula midline. Mucous membranes moist. Neck: Trachea midline, no thyromegaly or masses palpated, and no cervical lymphadenopathy. Supple, full range of motion without nuchal rigidity, or vertebral point tenderness. No Meningismus. Chest/axilla: Normal chest wall appearance and motion. Nontender with no deformity. No lesions are appreciated. Cardiovascular: Regular rate and rhythm with a normal S1 and S2. No gallops, murmurs, or rubs. Normal PMI, no JVD. No pulse deficits. Respiratory: Lungs have equal breath sounds bilaterally, clear to auscultation and percussion. No rales, rhonchi or wheezes noted. No increased work of breathing, no retractions or nasal flaring. Abdomen/GI: Soft, non-tender, with normal bowel sounds. No distension or tympany. No guarding or rebound. No evidence of tenderness throughout. Back: No spinal tenderness. No costovertebral tenderness. Full range of motion. Male : Normal genitalia with no discharge or lesions. Neuro: Awake and alert, GCS 15, oriented to person, place, time, and situation. Cranial nerves II-XII grossly intact. Motor strength 5/5 in all extremities. Sensory grossly intact. Cerebellar exam normal. Normal gait. Psych: Awake, alert, with orientation to person, place and time. Behavior, mood, and affect are within normal limits. 14:32 Musculoskeletal/extremity: Circulation is intact in all extremities. numbness, Compartment Syndrome exam of affected extremity: is normal. Weight bearing: able to fully bear weight, without difficulty, DVT Exam: negative Homans' sign noted on exam, no appreciated bluish discoloration, pain, swelling, tenderness, erythema, that is mild, of the left leg, increased warmth, 14:32 Skin: cellulitis, that is mild, on the left leg, 16:01 ECG was reviewed by the Attending Physician. [facility] Vital Signs: 12:45 BP 237 / 106; Pulse 82; Resp 18; Temp 98.5; Pulse Ox 95% ; Weight 114.9 kg; Height 5 db ft. 11 in. ; 13:30 BP 217 / 101; Pulse 78; Resp 18; Pulse Ox 100% on R/A; db 15:00 BP 222 / 104; Pulse 83; Resp 18; Pulse Ox 98% on R/A; db 16:00 BP 206 / 98; Pulse 74; Resp 16; Temp 98.2; Pulse Ox 99% on R/A; db 17:00 BP 210 / 93; Pulse 76; Resp 16; Pulse Ox 98% on R/A; db 18:00 BP 202 / 101; Pulse 84; Resp 18; Pulse Ox 100% on R/A; hb 18:30 BP 182 / 84; Pulse 97; Resp 18; Pulse Ox 100% on R/A; db 12:45 Body Mass Index 35.33 (114.90 kg, 180.34 cm) db MDM: 13:01 Patient medically screened. nishant 14:34 Differential diagnosis: open fracture, contusion, tendonitis, fracture, gout, nishant cellulitis. Data reviewed: vital signs, nurses notes, lab test result(s), EKG, radiologic studies, doppler, plain films. Consideration of Admission/Observation Patient was admitted/placed on observation. Escalation of care including admission/observation considered. I considered the following discharge prescriptions or medication management in the emergency department Medications were administered in the Emergency Department. See MAR. Independent interpretation of the following test(s) in the Emergency Department EKG: See my EKG interpretation above. Test considered but Not performed: MRI: no mri. Historians other than the Patient: pt well informed. Care significantly affected by the following chronic conditions: Diabetes, Hypertension, Obesity, Chronic Kidney Disease. Counseling: I had a detailed discussion with the patient and/or guardian regarding the historical points, exam findings, and any diagnostic results supporting the discharge/admit diagnosis, the presence of at least one elevated blood pressure reading (>120/80) during this emergency department visit, lab results, the need for further work-up and treatment in the hospital. 04/13 13:37 Order name: Basic Metabolic Panel; Complete Time: 16:37 [facility] 04/13 13:37 Order name: CBC with Diff; Complete Time: 16:37 [facility] 04/13 13:37 Order name: LFT's; Complete Time: 16:37 [facility] 04/13 13:37 Order name: Magnesium; Complete Time: 16:37 [facility] 04/13 13:37 Order name: NT PRO-BNP; Complete Time: 16:37 [facility] 04/13 13:37 Order name: PT-INR; Complete Time: 16:37 [facility] 04/13 13:37 Order name: Troponin HS; Complete Time: 16:37 [facility] 04/13 13:37 Order name: Blood Culture Adult (2) [facility] 04/13 13:37 Order name: Lactate w/ 2H reflex if indic.; Complete Time: 16:37 [facility] 04/13 13:37 Order name: CRP; Complete Time: 16:37 [facility] 04/13 15:46 Order name: Urinalysis w/ reflexes EDMS 04/13 15:46 Order name: Basic Metabolic Panel EDMS 04/13 15:46 Order name: Basic Metabolic Panel EDMS 04/13 15:46 Order name: Basic Metabolic Panel EDMS 04/13 15:46 Order name: Basic Metabolic Panel EDMS 04/13 15:46 Order name: Basic Metabolic Panel EDMS 04/13 15:46 Order name: Basic Metabolic Panel EDMS 04/13 15:46 Order name: Basic Metabolic Panel EDMS 04/13 15:46 Order name: Basic Metabolic Panel EDMS 04/13 15:46 Order name: CBC with Automated Diff EDMS 04/13 15:46 Order name: CBC with Automated Diff EDMS 04/13 15:46 Order name: CBC with Automated Diff EDMS 04/13 15:46 Order name: CBC with Automated Diff EDMS 04/13 15:46 Order name: CBC with Automated Diff EDMS 04/13 15:46 Order name: CBC with Automated Diff EDMS 04/13 15:46 Order name: CBC with Automated Diff EDMS 04/13 15:46 Order name: CBC with Automated Diff EDMS 04/13 15:46 Order name: Magnesium EDMS 04/13 15:46 Order name: Magnesium EDMS 04/13 15:46 Order name: Magnesium EDMS 04/13 15:46 Order name: Magnesium EDMS 04/13 15:46 Order name: Magnesium EDMS 04/13 15:46 Order name: Magnesium EDMS 04/13 15:46 Order name: Magnesium EDMS 04/13 15:46 Order name: Magnesium EDMS 04/13 15:46 Order name: Phosphorus EDMS 04/13 15:46 Order name: Phosphorus EDMS 04/13 15:46 Order name: Phosphorus EDMS 04/13 15:46 Order name: Phosphorus EDMS 04/13 15:46 Order name: Phosphorus EDMS 04/13 15:46 Order name: Phosphorus EDMS 04/13 15:46 Order name: Phosphorus EDMS 04/13 15:46 Order name: Phosphorus EDMS 04/13 15:46 Order name: Troponin High Sensitivity EDMS 04/13 15:46 Order name: Troponin High Sensitivity EDMS 04/13 15:47 Order name: Troponin High Sensitivity EDMS 04/13 17:40 Order name: Glucose, Ancillary Testing EDMS 04/13 18:29 Order name: Lipid Profile EDMS 04/13 13:37 Order name: XRAY Chest (1 view); Complete Time: 15:17 [facility] 04/13 13:37 Order name: Foot Left 3 View XRAY; Complete Time: 15:17 [facility] 04/13 13:37 Order name: US Extremity Venous W Compression Barrie; Complete Time: 14:41 [facility] 04/13 13:37 Order name: EKG; Complete Time: 13:37 [facility] 04/13 15:46 Order name: CONS Physician Consult EDMS 04/13 13:37 Order name: Cardiac monitoring; Complete Time: 15:54 [facility] 04/13 13:37 Order name: EKG - Nurse/Tech; Complete Time: 15:21 [facility] 04/13 13:37 Order name: IV Saline Lock; Complete Time: 15:54 [facility] 04/13 13:37 Order name: Labs collected and sent; Complete Time: 15:21 [facility] 04/13 13:37 Order name: O2 Per Protocol; Complete Time: 15:21 [facility] 04/13 13:37 Order name: O2 Sat Monitoring; Complete Time: 15:54 nishant EC:01 Rate is 76 beats/min. Rhythm is regular. QRS [place] is Normal. [place] interval is normal. QRS nishant interval is normal. QT interval is normal. No Q waves. T waves are Normal. No ST changes noted. Clinical impression: NSR w/ Non-specific ST/T Changes and No evidence of ischemia. Interpreted by me. Reviewed by me. Administered Medications: 15:00 Drug: HydrALAZINE PO 25 mg PO once Route: PO; db 15:20 Drug: Piperacillin-Tazobactam IVPB 3.375 grams IVPB once over 60 mins; (mix in NS 100 db mL) Route: IVPB; Infused Over: 60 mins; Site: right antecubital; 15:55 Follow up: Response: No adverse reaction; IV Status: Completed infusion; IV Intake: db 100ml 15:55 Not Given (Patient Refused): fentanyl (pf)25 mcg IVP once db 15:56 Not Given (Patient Refused): fentanyl (pf)25 mcg IVP once db 16:15 Drug: vancoMYCIN IVPB 1 grams IVPB once over 2 hrs Route: IVPB; Infused Over: 2 hrs; db Site: right antecubital; 18:15 Follow up: Response: No adverse reaction; IV Status: Completed infusion; IV Intake: db 250ml 16:39 CANCELLED (Duplicate Order): [id number] mg PO once [facility] 16:55 Drug: HydrALAZINE PO 25 mg PO once Route: PO; db 19:03 Follow up: Response: No adverse reaction db 16:55 Drug: Norvasc PO 10 mg PO once Route: PO; db 19:04 Follow up: Response: No adverse reaction db 17:00 Drug: hydrALAZINE IVP 20 mg IVP once Route: IVP; Site: right antecubital; db 19:04 Follow up: Response: No adverse reaction db 17:42 Not Given (SEE VALSARTAN IN MEDITECHh): olmesartan 20 mg Feeding Tube once db 17:42 Not Given (SEE MEDITECHh): doxazosin4 mg PO once db 18:44 Not Given (Hemodynamic Parameters): cauxvuamu73 mg IV at per protocol once over 2 mins db 18:44 Not Given (Hemodynamic Parameters): alewueqxu84 mg IV at per protocol once over 2 mins db 18:44 Not Given (Hemodynamic Parameters): vlnkprprigc08 mg IVP once db 18:44 Not Given (Hemodynamic Parameters): doxazosin4 mg PO once db Disposition Summary: 04/13/24 14:41 Hospitalization Ordered Notes: Hospitalization Status: Inpatient Admission nishant Provider: John Weaver cha Location: Telemetry/MedSurg (Inpatient) nishant Condition: Fair nishant Problem: new nishant Symptoms: have improved nishant Bed/Room Type: Standard nishant Room Assignment: 410(04/13/24 15:54) bd Diagnosis - Dependence on renal dialysis nishant - Pain in left foot - diabetic ulcer , cellulitis nishant - Essential (primary) hypertension nishant - Osteomyelitis, unspecified nishant Forms: - Medication Reconciliation Form nishant - SBAR form nishant - Leadership Thank You Letter nishant Signatures: Dispatcher [employer] EDCristina Cao Corey, MD MD cha Benton, Danielle RN RN db Corrections: (The following items were deleted from the chart) 15:54 14:41 nishant bd 16:39 16:38 HydrALAZINE PO 50 mg PO once ordered. nishant nishant
--- NOTE | 2024-04-13 14:42 | ER ---
Nurse's Notes [facility] Name: Nikita Bartlett Age: 48 yrs Sex: Male : 1975 Arrival Date: 04/13/2024 Time: 12:44 Bed 14 Private MD: Diagnosis: Dependence on renal dialysis;Pain in left foot-diabetic ulcer , cellulitis;Essential (primary) hypertension;Osteomyelitis, unspecified Presentation: 04/13 12:45 Chief complaint: EMS states: PATIENT WITH LEFT LEG/FOOT SWELLING WOKE UP THIS MORNING db WITH NEW SWELLING. Coronavirus screen: Client denies travel out of the [place] in the last 14 days. At this time, the client does not indicate any symptoms associated with coronavirus-19. Ebola Screen: Patient negative for fever greater than or equal to 101.5 degrees Fahrenheit, and additional compatible Ebola Virus Disease symptoms Patient denies exposure to infectious person. Patient denies travel to an Ebola-affected area in the 21 days before illness onset. No symptoms or risks identified at this time. Initial Sepsis Screen: Does the patient meet any 2 criteria? No. Patient's initial sepsis screen is negative. Does the patient have a suspected source of infection? No. Patient's initial sepsis screen is negative. Risk Assessment: Do you want to hurt yourself or someone else? Patient reports no desire to harm self or others. Onset of symptoms was April 13, 2024. Care prior to arrival: Glucose check: 192. 12:45 Method Of Arrival: EMS: [facility] db 12:45 Acuity: OCTAVIO 3 db Triage Assessment: 12:45 General: Appears in no apparent distress. comfortable, Behavior is calm, cooperative. db Pain: Denies pain. Neuro: Level of Consciousness is awake, alert, obeys commands, Oriented to person, place, time, situation. Derm: Wound noted left foot. Historical: - Allergies: 12:45 No Known Allergies; db - PMHx: 12:45 Anemia; Enlarged Heart; Diabetes - NIDDM; Dialysis; osteomyelitis; Hypertension; db - PSHx: 12:45 ulcer repair; db - Immunization history:: Adult Immunizations unknown. - Infectious Disease History:: Denies. - Social history:: Smoking status: Patient denies any tobacco usage or history of. Screenin:30 [facility] ED Fall Risk Assessment (Adult) History of falling in the last 3 months, db including since admission No falls in past 3 months (0 pts) Confusion or Disorientation No (0 pts) Intoxicated or Sedated No (0 pts) Impaired Gait Yes (1 pt) Mobility Assist Device Used Yes (1 pt) Altered Elimination No (0 pt) Score/Fall Risk Level 0 - 2 = Low Risk Oriented to surroundings, Maintained a safe environment. Abuse screen: Denies threats or abuse. Denies injuries from another. Nutritional screening: No deficits noted. Tuberculosis screening: No symptoms or risk factors identified. Assessment: 12:45 Reassessment: SEE TRIAGE FOR INITIAL ASSESSMENT. db 14:18 Reassessment: PATIENT HAS NOT RETURNED FROM RADIOLOGY. db 15:00 Reassessment: Patient appears in no apparent distress at this time. Patient and/or db family updated on plan of care and expected duration. Pain level reassessed. Patient is alert, oriented x 3, equal unlabored respirations, skin warm/dry/pink. 17:00 Reassessment: Patient appears in no apparent distress at this time. Patient and/or db family updated on plan of care and expected duration. Pain level reassessed. Patient is alert, oriented x 3, equal unlabored respirations, skin warm/dry/pink. General: Appears in no apparent distress. comfortable, Behavior is calm, cooperative. Neuro: Level of Consciousness is awake, alert, obeys commands, Oriented to person, place, time, situation. Cardiovascular: Dialysis shunt: in the left arm. Respiratory: Airway is patent Respiratory effort is even, unlabored, Respiratory pattern is regular, symmetrical. 17:09 Reassessment: CALLED PHARMACY FOR MEDICATION TO BE SENT TO ED AND NOT THE 4TH FLOOR. db 18:27 Reassessment: Patient appears in no apparent distress at this time. Patient states hb feeling better. 18:28 Reassessment: NOTIFIED DR. MCDERMOTT OF PATIENT BP. SEE MAR FOR MEDICATIONS. hb 18:45 Reassessment: Patient appears in no apparent distress at this time. Patient and/or db family updated on plan of care and expected duration. Pain level reassessed. Patient is alert, oriented x 3, equal unlabored respirations, skin warm/dry/pink. BP MEDICATIONS CANCELED PER DR. MCDERMOTT. PT BP RECHECK 182/84. NOTIFIED RECEIVING FLOOR. Vital Signs: 12:45 BP 237 / 106; Pulse 82; Resp 18; Temp 98.5; Pulse Ox 95% ; Weight 114.9 kg; Height 5 db ft. 11 in. ; 13:30 BP 217 / 101; Pulse 78; Resp 18; Pulse Ox 100% on R/A; db 15:00 BP 222 / 104; Pulse 83; Resp 18; Pulse Ox 98% on R/A; db 16:00 BP 206 / 98; Pulse 74; Resp 16; Temp 98.2; Pulse Ox 99% on R/A; db 17:00 BP 210 / 93; Pulse 76; Resp 16; Pulse Ox 98% on R/A; db 18:00 BP 202 / 101; Pulse 84; Resp 18; Pulse Ox 100% on R/A; hb 18:30 BP 182 / 84; Pulse 97; Resp 18; Pulse Ox 100% on R/A; db 12:45 Body Mass Index 35.33 (114.90 kg, 180.34 cm) db ED Course: 13:01 Patient arrived in ED. db 13:01 Kraeem Mcdermott MD is Attending Physician. nishant 13:05 First set of blood cultures drawn by me, Second set of blood cultures drawn by me. cc6 13:12 Triage completed. db 13:13 Arm band placed on Patient placed in an exam room. db 13:[address] db 13:54 Fang Yeung, RN is Primary Nurse. db 14:17 US Extremity Venous W Compression Barrie In Process Unspecified. EDMS 14:23 Patient moved back from CT. Patient moved back from radiology. Patient moved back from db ultrasound. 14:36 John Weaver is Hospitalizing Provider. nishant 14:38 XRAY Chest (1 view) In Process Unspecified. EDMS 14:38 Foot Left 3 View XRAY In Process Unspecified. EDMS 15:14 Inserted saline lock: 20 gauge in right antecubital area, using aseptic technique. cc6 Blood collected. Flushed with 10 mL NS. 15:37 1505 CM attempted initial assessment, nurse at bedside administering care. 1537 CM met ane with at the bedside in the ED exam room. Patient identified by name and . Demographic sheet confirmed. Patient states he lives with his girlfriend in a single story home and that prior to admission, he performs ADLs independently with use of a cane. Dr. Davis is his PC. No other DME, no HH, no home oxygen at this time. Patient receives renal dialysis through [facility] on Tuesdays, , and Saturdays. MPOA is in place. 1540 Dr. Mcdermott at the bedside discussing plan of care. His preferred plan is to return home upon discharge and states his girlfriend will transport him home. CM team will continue to follow and coordinate care during this hospital stay. 18:45 Patient has correct armband on for positive identification. Placed in gown. Bed in low db position. Call light in reach. Side rails up X2. Provided Education on: ADMISSION. Client placed on continuous cardiac and pulse oximetry monitoring. NIBP monitoring applied. gum mixer on. Pulse ox on. NIBP on. Warm blanket given. Pillow given. 18:45 No provider procedures requiring assistance completed. Patient admitted, IV remains in db place. Administered Medications: 15:00 Drug: HydrALAZINE PO 25 mg PO once Route: PO; db 15:20 Drug: Piperacillin-Tazobactam IVPB 3.375 grams IVPB once over 60 mins; (mix in NS 100 db mL) Route: IVPB; Infused Over: 60 mins; Site: right antecubital; 15:55 Follow up: Response: No adverse reaction; IV Status: Completed infusion; IV Intake: db 100ml 15:55 Not Given (Patient Refused): fentanyl (pf)25 mcg IVP once db 15:56 Not Given (Patient Refused): fentanyl (pf)25 mcg IVP once db 16:15 Drug: vancoMYCIN IVPB 1 grams IVPB once over 2 hrs Route: IVPB; Infused Over: 2 hrs; db Site: right antecubital; 18:15 Follow up: Response: No adverse reaction; IV Status: Completed infusion; IV Intake: db 250ml 16:39 CANCELLED (Duplicate Order): [id number] mg PO once nishant 16:55 Drug: HydrALAZINE PO 25 mg PO once Route: PO; db 19:03 Follow up: Response: No adverse reaction db 16:55 Drug: Norvasc PO 10 mg PO once Route: PO; db 19:04 Follow up: Response: No adverse reaction db 17:00 Drug: hydrALAZINE IVP 20 mg IVP once Route: IVP; Site: right antecubital; db 19:04 Follow up: Response: No adverse reaction db 17:42 Not Given (SEE VALSARTAN IN MEDITECH): olmesartan 20 mg Feeding Tube once db 17:42 Not Given (SEE MEDITECHh): doxazosin4 mg PO once db 18:44 Not Given (Hemodynamic Parameters): vnlahcnsz30 mg IV at per protocol once over 2 mins db 18:44 Not Given (Hemodynamic Parameters): sgfseozpy30 mg IV at per protocol once over 2 mins db 18:44 Not Given (Hemodynamic Parameters): owsdmkrjqbq94 mg IVP once db 18:44 Not Given (Hemodynamic Parameters): doxazosin4 mg PO once db Medication: 18:45 VIS not applicable for this client. db Intake: 15:55 IV: 100ml; Total: 100ml. db 18:15 IV: 250ml; Total: 350ml. db Outcome: 14:41 Decision to Hospitalize by Provider. nishant 18:45 Admitted to Med/surg accompanied by nurse, via stretcher, on monitor, Report called to db FAXED AND CONFIRMED WITH FIONA NO MORE QUESTIONS 18:45 Condition: stable 18:45 Instructed on the need for admit, 19:05 Patient left the ED. db Signatures: Dispatcher [employer] EDKareem Roac MD MD cha Baxter, Heather, RN Fang Harrison, RN RN Jacquelin Pantoja cc6 Lori Patel RN EMILIE carroll
--- NOTE | 2024-04-13 14:56 | RAD REPORT ---
EXAMINATION: ONE VIEW CHEST XR CLINICAL INDICATION: Male, 48 years old.COUGH TECHNIQUE: 1 View, AP supine, X-ray of the chest was performed. [id number]. COMPARISON: 07/14/2022 FINDINGS: Lungs and pleura: Increase coarsening of pulmonary interstitium. No effusion. Heart and mediastinum: Cardiomegaly Osseous structures: No acute abnormality. Tubes/lines: None Other: None. IMPRESSION: Nonspecific increased prominence of the pulmonary interstitium could reflect developing edema.
--- NOTE | 2024-04-13 14:57 | P.HP ---
Certification for Inpatient Patient admitted to: Inpatient With expected LOS: >2 Midnights Patient will require the following post-hospital care: None Practitioner: I am a practitioner with admitting privileges, knowledge of patient current condition, hospital course, and medical plan of care. Services: Services provided to patient in accordance with Admission requirements found in Title 42 Section 412.3 of the Code of Federal Regulations Patient History Date of Service: 04/13/24 Reason for admission: Left diabetic foot ulcer History of Present Illness: Nikita Bartlett is a 48-year-old male with past medical history of anemia, enlarged heart, diabetes mellitusNIDDM, from neuropathy, osteomyelitis, hypertension, and gastric ulcer, ESRD, anemia of chronic disease dialysis TTS who presents to the ED with chief complaint of left foot swelling needing a wound checkup. He reports being afraid he had a blood clot. On examination, edema bilaterally, 1+ peripheral pulses, wound to plantar left foot, no complaints of pain. He is in no distress, denies fever, chills, nausea, vomitting, and chest pain. Evaluation significant for BNP 100,619, BUN/creatinine 46/9.76, GFR 6, troponin 67.3, CRP 65.9, serum glucose 197. Ultrasound lower extremity venous Doppler bilateral reports "No evidence of deep venous thrombosis seen in either lower extremity. " Foot x-ray reports "Destructive changes across the fifth MTP joint concerning for septic arthritis/osteomyelitis." Chest xray reports "Nonspecific increased prominence of the pulmonary interstit ium could reflect developing edema." Nikita will be admitted to hospitalist service for further evaluation, Dr. Brizuela consulted. Allergies No Known Drug Allergies Allergy (Verified 11/24/19 04:29) Unknown Home Medications: Amlodipine [Norvasc*] 10 mg PO DAILY 11/24/19 Atorvastatin Calcium [Lipitor*] 10 mg PO DAILY 11/24/19 Furosemide 40 mg PO BID 11/24/19 Aspirin [Aspirin EC 81 MG] 81 mg PO DAILY 09/06/20 Cholecalciferol (Vitamin D3) [Vitamin D3] 5,000 units PO DAILY 09/06/20 Calcitrol [Rocaltrol*] 0.75 mcg PO T,TH,S 06/21/22 Doxazosin [Cardura*] 8 mg PO BID 06/21/22 Glimepiride [Amaryl*] 4 mg PO DAILY 06/21/22 Metoprolol Tartrate [Lopressor] 50 mg PO BID 06/21/22 Olmesartan Medoxomil [Benicar] 20 mg PO DAILY 06/21/22 Cefepime [Maxipime] 1 gm IV DAILY 9 Days #1 vial 06/25/22 Vancomycin 1 gm IV AFTER EACH DIALYSIS 14 Days #1 vial 06/25/22 Heparin [Heparin 1,000 units/mL *] 6,000 unit IV EVERY HD PRN vial 07/18/22 Mannitol 25% [Mannitol*] 12.5 gm IV EVERY HD PRN vial 07/18/22 Sevelamer Carbonate [Renvela*] 800 mg PO TIDWM #30 tab 07/18/22 Vitamin D [Drisdol*] 50,000 unit PO Q7D #4 cap 07/18/22 levoFLOXacin [Levaquin] 750 mg PO DAILY #5 tab 07/18/22 metroNIDAZOLE [Flagyl] 500 mg PO Q8H #15 tab 07/18/22 - Past Medical/Surgical History Diabetic: Yes -: Diabetes mellitus type 2 -: Hypertension -: ESRD on HD (Dr. Garibay) -: Former tobacco use -: Anemia chronic disease -: COVID-19 pneumonia -: Right tibia sx r/t fx -: left AV fistula -: hemosplit -: peritoneal HD -: Osteo 5th toe left foot Psychosocial/ Personal History: Patient lives at home with his . - Family History Father -: Cancer Notes: mutiple myeloma Mother -: Diabetes - Social History Smoking Status: Never smoker Alcohol use: No CD- Drugs: No Caffeine use: Yes Review of Systems Musculoskeletal: Foot Pain (Left) Physical Examination - Physical Exam General: Alert, In no apparent distress, Oriented x3 HEENT: Atraumatic, Normocephalic Neck: Supple, 2+ carotid pulse no bruit, JVD not distended Respiratory: Clear to auscultation bilaterally, Normal air movement Cardiovascular: Normal pulses, Regular rate/rhythm, Normal S1 S2 Capillary refill: <2 Seconds Gastrointestinal: Normal bowel sounds, Soft and benign Musculoskeletal: No clubbing Integumentary: No rashes Neurological: Normal speech, Normal tone Assessment and Plan - Plan Assessment and plan Osteromylitis of left fifth MTP -Ultrasound lower extremity venous Doppler bilateral reports "No evidence of deep venous thrombosis seen in either lower extremity. " -Foot x-ray reports "Destructive changes across the fifth MTP joint concerning for septic arthritis/osteomyelitis." -consult surgery -IV antibiotics -Pain control -NPO at midnight -Cefepime and vancomycin Hypertensive Emergency -Continue home medications -hydralazine PRN Diabetes mellitus-NIDDM -Accu-Chek with sliding scale insulin ESRD Anemia of chronic disease Fluid volume overload -Dialysis TTS -Consult Dr. Garibay -Monitor H&H -BNP 100,690 History of hypertension -Continue home medication DVT ppx heparin Full code LOS 2-3 days Discharge Plan: Home Plan to discharge in: 72 Hours - Advance Directives Does patient have a Living Will: No Does patient have a Durable POA for Healthcare: Yes
--- NOTE | 2024-04-13 15:01 | RAD REPORT ---
EXAM: Foot Left 3 View HISTORY: PAIN COMPARISON: 06/02/2021 FINDINGS: Bony destruction at the level of the fifth metatarsal involving the metatarsal head and proximal phal anx concerning for septic joint and bony destruction. Peripheral vascular calcifications. No acute fracture. IMPRESSION: Destructive changes across the fifth MTP joint concerning for septic arthritis/osteomyelitis
[2024-04-13] MEDS ORDERED: NA CHLORIDE 0.9% 250 ML ONE (15:17)
[2024-04-13 15:21] LABS: Absolute Eosinophils 0.1 K/uL (0-0.5); Absolute Lymphocytes (CBC) 1.3 K/uL (0.7-4.9); Absolute Monocytes 0.5 K/uL (0.1-1.3); Absolute Neutrophil 3.6 K/uL (1.8-8.0); Basophils % 0.5 % (0-1.3); Eosinophils % 2.7 % (0-4.4); Hematocrit 29.5 % (39.6-49.0); Hemoglobin 9.7 g/dL (13.6-17.9); MCH 28.1 pg (27.0-35.0); MCHC 32.9 g/dL (32.0-36.0); MCV 85.4 fL (80-100); Monocytes % 8.3 % (3.3-12.3); Neutrophils % 64.5 % (41.7-73.7); Platelets 252 thou/uL (152-406); RBC Red Blood Cell Count 3.45 M/uL (4.33-5.43); Red Cell Distribution Width 15.5 % (12.1-15.2)
[2024-04-13 15:25] LABS: PT Prothrombin Time 11.8 SECONDS (9.4-12.5); Protime INR 1.06
[2024-04-13 15:42] LABS: AST/SGOT 11 U/L (15-37); Albumin/Globulin Ratio 0.5 (1.1-1.8); Alkaline Phosphatase 199 U/L (45-117); Anion Gap 11.4 mEq/L (5.0-15.0); BUN Blood Urea Nitrogen 46 mg/dL (7-18); Bicarbonate 28 mEq/L (21-32); Bilirubin Direct 0.2 mg/dL (0-0.2); Bilirubin Indirect, Calculated 0.2 mg/dL (0.2-0.8); Bilirubin Total 0.4 mg/dL (0.2-1.0); Globulin 5.5 g/dL (2.3-3.5); Glomerular Filtration Rate 6 ml/min (=/>90); Glucose Level 197 mg/dL (74-106); Magnesium 2.1 mg/dL (1.6-2.4); Potassium 4.4 mEq/L (3.5-5.1); Protein, Total 8.5 g/dL (6.4-8.2); Sodium Level 136 mEq/L (136-145); Troponin High Sensitivity 67.3 pg/mL (<58.9)
[2024-04-13 15:45] LABS: ALT/SGPT < 14 U/L (16-61)
[2024-04-13] MEDS ORDERED: MORPHINE 2 MG/ML SYR IV PRN (15:48)
[2024-04-13] MEDS ORDERED: ACETAMINOPHEN 500 MG TAB PO PRN (15:48)
[2024-04-13] MEDS: ASPIRIN EC 81 MG TAB PO ONE (16:01)
[2024-04-13 16:04] LABS: NT PRO-BNP 100619 pg/mL (<125)
[2024-04-13] MEDS ORDERED: D10W 125 ML IV PRN (16:08)
[2024-04-13] MEDS ORDERED: GLUCAGON 1 MG/VIAL IM PRN (16:08)
[2024-04-13] MEDS: INSULIN REGULAR (HUMAN) 100 UNIT/ML SQ SCH (16:30)
[2024-04-13] MEDS: HEPARIN 5000 UNIT/ML 1 ML VIAL SQ SCH (17:00)
[2024-04-13] MEDS: VANCOMYCIN 1 GM in NA CHLORIDE 0.9% 250 ML IVPB ONE (17:00)
[2024-04-13] MEDS ORDERED: AMLODIPINE 10 MG TAB ONE (17:01)
[2024-04-13] MEDS ORDERED: HYDRALAZINE HCL 20 MG/ML VIAL ONE ×2 (17:01→18:34)
[2024-04-13] MEDS: AMLODIPINE 10 MG TAB PO ONE (17:09)
[2024-04-13] MEDS: VALSARTAN 80 MG TAB PO ONE (17:09)
[2024-04-13] MEDS: DOXAZOSIN 4 MG TAB PO ONE (17:10)
[2024-04-13] MEDS ORDERED: VALSARTAN 80 MG TAB ONE (17:23)
[2024-04-13] MEDS ORDERED: ASPIRIN EC 81 MG TAB PO ONE (17:24)
[2024-04-13] MEDS ORDERED: LABETALOL 20 MG/4ML SYRINGE IV ONE (18:35)
[2024-04-13] MEDS ORDERED: DOXAZOSIN 4 MG TAB PO ONE (19:00)
[2024-04-13] MEDS: ATORVASTATIN 40 MG TAB PO SCH (20:18)
[2024-04-13] MEDS: CEFEPIME 1 GM in NA CHLORIDE 0.9% 100 ML IV SCH (20:18)
[2024-04-13] MEDS: HYDRALAZINE HCL 20 MG/ML VIAL IV PRN (20:18)
[2024-04-13] MEDS ORDERED: MANNITOL 25% 12.5 GM/50 ML VIAL IV PRN (21:47)
[2024-04-13] MEDS ORDERED: NA CHLORIDE 0.9% 1,000 ML IV PRN (21:47)
[2024-04-13] MEDS ORDERED: ALBUMIN HUMAN 25% 50 ML IV SCH (22:00)
[2024-04-13] MEDS ORDERED: EPOETIN ALFA 10,000 UNIT/ML VIAL IV SCH (22:00)
[2024-04-14 07:27] LABS: Absolute Eosinophils 0.1 K/uL (0-0.5); Absolute Lymphocytes (CBC) 1.2 K/uL (0.7-4.9); Absolute Monocytes 0.4 K/uL (0.1-1.3); Absolute Neutrophil 3.4 K/uL (1.8-8.0); Basophils % 0.6 % (0-1.3); Eosinophils % 2.8 % (0-4.4); Hematocrit 28.8 % (39.6-49.0); Hemoglobin 9.7 g/dL (13.6-17.9); Lymphocytes % 22.8 % (15.3-44.8); MCH 28.8 pg (27.0-35.0); MCHC 33.8 g/dL (32.0-36.0); MCV 85.1 fL (80-100); MPV 6.9 fL (7.6-11.3); Monocytes % 7.4 % (3.3-12.3); Neutrophils % 66.4 % (41.7-73.7); Platelets 247 thou/uL (152-406); RBC Red Blood Cell Count 3.38 M/uL (4.33-5.43); Red Cell Distribution Width 15.3 % (12.1-15.2)
[2024-04-14 07:44] LABS: Anion Gap 14.7 mEq/L (5.0-15.0); Magnesium 2.1 mg/dL (1.6-2.4); Phosphorus 4.8 mg/dL (2.5-4.9); Potassium 4.7 mEq/L (3.5-5.1)
[2024-04-14 07:45] LABS: Troponin High Sensitivity 67.7 pg/mL (<58.9)
--- NOTE | 2024-04-14 07:48 | P.CNS ---
Date of Consult: 04/14/24 Reason for Consult: ESRD Requesting Physician: Scottie Casiano Chief Complaint: Left diabetic foot ulcer History of Present Illness: Nikita Bartlett is a 48-year-old male with past medical history of anemia, enlarged heart, diabetes mellitusNIDDM, from neuropathy, osteomyelitis, hypertension, and gastric ulcer, ESRD, anemia of chronic disease dialysis TTS who presents to the ED with chief complaint of left foot swelling needing a w ound checkup. He reports being afraid he had a blood clot. On examination, edema bilaterally, 1+ peripheral pulses, wound to plantar left foot, no complaints of pain. He is in no distress, denies fever, chills, nausea, vomitting, and chest pain. [id number] 14:31 This 48 yrs old Male presents to ER via EMS with complaints of Leg Swelling, nishant Foot Pain, Wound Check. 14:31 The patient presents with an abscess, decreased range of motion, pain, swelling, nishant tenderness. The complaints affect the left foot. Context: The problem was sustained at an unknown location, resulted from dfu. Onset: The symptoms/episode began/occurred 1 week(s) ago. Modifying factors: The symptoms are alleviated by elevation of extremity, the symptoms are aggravated by weight bearing, movement. Associated signs and symptoms: Pertinent positives: swelling, warmth. Severity of symptoms: At their worst the symptoms were moderate, in the emergency department the symptoms are unchanged. Allergies No Known Drug Allergies Allergy (Verified 11/24/19 04:29) Unknown Home medications list reviewed: Yes Home Medications: Amlodipine [Norvasc*] 10 mg PO DAILY 11/24/19 Doxazosin [Cardura*] 8 mg PO BID 06/21/22 Metoprolol Tartrate [Lopressor] 25 mg PO BID 06/21/22 Olmesartan Medoxomil [Benicar] 20 mg PO DAILY 06/21/22 - Past Medical/Surgical History Diabetic: Yes -: Diabetes mellitus type 2 -: Hypertension -: ESRD on HD (Dr. Garibay/ [facility]) -: Former tobacco use -: Anemia chronic disease -: Hx COVID-19 pneumonia -: Right tibia sx r/t fx -: left AV fistula -: hemosplit -: peritoneal HD -: Osteo 5th toe left foot Psychosocial/ Personal History: Patient lives at home with his . - Family History Father Medical History: Cancer Notes: mutiple myeloma Mother Medical History: Diabetes - Social History Smoking Status: Former smoker Alcohol use: No CD- Drugs: No Caffeine use: Yes Place of Residence: Home Review of Systems 10-point ROS is otherwise unremarkable General: Weakness Respiratory: SOB with Excertion Cardiovascular: Edema Neurological: Weakness Physical Examination Temp Pulse Resp BP Pulse Ox 97.4 F 90 18 183/88 H 99 04/14/24 04:00 04/14/24 04:00 04/14/24 04:00 04/14/24 04:00 04/14/24 04:00 General: In no apparent distress, Cooperative HEENT: Atraumatic Neck: Supple Respiratory: Normal air movement Cardiovascular: Regular rate/rhythm, Edema Gastrointestinal: Soft and benign, Non-distended Musculoskeletal: No clubbing, No contractures Integumentary: No rashes, No cyanosis, Diabetic ulcer Neurological: Normal speech Laboratory Data (last 24 hrs) 04/13/24 04/13/24 04/13/24 15:08 15:08 15:08 WBC 5.50 Hgb 9.7 L Hct 29.5 L Plt Count 252 PT 11.8 INR 1.06 Sodium 136 Potassium 4.4 BUN 46 H Creatinine 9.76 H Glucose 197 H Magnesium 2.1 Total Bilirubin 0.4 AST 11 L ALT < 14 L Alkaline Phosphatase 199 H Imagings Data: [id number] EXAM: Foot Left 3 View HISTORY: PAIN COMPARISON: 06/02/2021 FINDINGS: Bony destruction at the level of the fifth metatarsal involving the metatarsal head and proximal phalanx concerning for septic joint and bony destruction. Peripheral vascular calcifications. No acute fracture. IMPRESSION: Destructive changes across the fifth MTP joint concerning for septic arthritis/osteomyelitis [id number] EXAMINATION: US LOWER EXTREMITY VENOUS DOPPLER BILATERAL CLINICAL INDICATION: Male, 48 years old.Pain;Swelling TECHNIQUE: Complete bilateral duplex sonography of the lower extremity veins was performed. The examination included compression for vein patency, color Doppler imaging and flow augmentation in response to distal compression of the distal external iliac, common femoral, femoral, popliteal, peroneal, tibial and great saphenous veins. [id number]. COMPARISON: No prior exams FINDINGS: Duplex sonography imaging demonstrates all deep examined to be fully compressible with spontaneous, phasic and augmented flow bilaterally. IMPRESSION: No evidence of deep venous thrombosis seen in either lower extremity. [id number] EXAMINATION: ONE VIEW CHEST XR CLINICAL INDICATION: Male, 48 years old.COUGH TECHNIQUE: 1 View, AP supine, X-ray of the chest was performed. [id number]. COMPARISON: 07/14/2022 FINDINGS: Lungs and pleura: Increase coarsening of pulmonary interstitium. No effusion. Heart and mediastinum: Cardiomegaly Osseous structures: No acute abnormality. Tubes/lines: None Other: None. IMPRESSION: Nonspecific increased prominence of the pulmonary interstitium could reflect developing edema. Conclusions/Impression: ESRD on HD -Acute HD ordered HTN with CKD/ CHF -Continue Amlodipine -Start Losartan and Metoprolol BID -Continue Doxazosin Peripheral Edema Diastolic CHF suspected -HD with UF -Echocardiogram pending DM II with CKD & Polyneuropathy -RISS DM II with foot ulcer Left foot osteomyelitis -Continue Abx -Wound care as ordered Anemia in CKD -Retacrit qHD CKD MBD -Start Renvela and Calcitriol Hospitalist and ER notes reviewed Thank you kindly for the consultation
[2024-04-14] MEDS: SEVELAMER CARBONATE 800 MG TABLET PO SCH (08:00)
[2024-04-14] MEDS: LACTOBACILLUS/ACIDOPHILUS TAB PO SCH (08:12)
[2024-04-14] MEDS: CALCITROL 0.25 MCG CAP PO SCH (08:12)
[2024-04-14] MEDS: METOPROLOL TAR 50 MG TAB PO SCH (08:12)
[2024-04-14] MEDS: LOSARTAN POTASSIUM 50 MG TABLET PO SCH (08:12)
[2024-04-14] MEDS: ASPIRIN EC 81 MG TAB PO SCH (08:12)
[2024-04-14] MEDS: DOCUSATE NA 100 MG CAP PO SCH (08:33)
[2024-04-14 10:46] LABS: Hepatitis B Surface Ab - Quant 69.44 mIU/mL (<8.0)
[2024-04-14 10:56] LABS: Hepatitis B surface AG Interp. Nonreactive (Nonreactive)
[2024-04-14 10:57] LABS: HBsAG Nonreactive Report Report
--- NOTE | 2024-04-14 12:28 | EKG ---
Test Date: 2024-04-13 Test Time: 15:13:19 Chief Knowledge Officer: NITA MEASUREMENT RESULTS: Intervals: Rate: 76 IA: 162 QRSD: 90 QT: 408 QTc: 459 Festus: P: 55 IA: 162 QRS: -12 T: -15 INTERPRETIVE STATEMENTS: Normal sinus rhythm Voltage criteria for left ventricular hypertrophy Cannot rule out Septal infarct, age undetermined Abnormal ECG Compared to ECG 07/14/2022 15:54:42 Myocardial infarct finding now present Early repolarization no longer present Electronically Signed On 04-14-24 12:25:59 CDT by Mark Sewell
--- NOTE | 2024-04-14 12:57 | P.PN ---
Date of Service: 04/14/24 Subjective: Seen while getting acute HD No acute events overnight ROS: 10 point ROS as noted above, otherwise negative Physical exam GEN: Alert, oriented, NAD HEENT: Normal conjunctiva, sclera anicteric CV: Regular rate and rhythm, no edema Pulm: Nonlabored respirations on room air ABD: Soft, nontender, nondistended MSK: No joint tenderness Integumentary: Erythema, swelling to left fifth toe Neuro: Normal speech, normal affect Vitals reviewed Assessment and plan Osteromylitis of left fifth MTP -Ultrasound lower extremity venous Doppler bilateral reports "No evidence of deep venous thrombosis seen in either lower extremity. " -Foot x-ray reports "Destructive changes across the fifth MTP joint concerning for septic arthritis/osteomyelitis." -consult surgery -IV antibiotics -Cefepime and vancomycin Hypertensive Emergency -Continue home medications -hydralazine PRN Diabetes mellitus-NIDDM -Accu-Chek with sliding scale insulin ESRD Anemia of chronic disease Fluid volume overload -Dialysis TTS -Completed HD today -Nephrology consulted History of hypertension -Continue home medication DVT ppx heparin Full code LOS 2-3 days Time Spent Managing Pts Care (In Minutes): 35
[2024-04-14 18:25] VITALS: BMI 35.1
[2024-04-14] MEDS: CEFEPIME 1 GM in NA CHLORIDE 0.9% 100 ML IV SCH (20:22)
[2024-04-14] MEDS: DOXAZOSIN 4 MG TAB PO SCH (20:32)
[2024-04-14] MEDS ORDERED: HOME MED 1 EA UNK (Metoprolol Tartrate [Lopressor] 100 MG Tablet) PO SCH (21:00)
[2024-04-14] MEDS: VANCOMYCIN 1 GM in NA CHLORIDE 0.9% 250 ML IVPB SCH (23:53)
[2024-04-15 07:04] LABS: Anion Gap 11.3 mEq/L (5.0-15.0); Magnesium 2.2 mg/dL (1.6-2.4); Phosphorus 4.6 mg/dL (2.5-4.9); Potassium 4.3 mEq/L (3.5-5.1)
[2024-04-15 07:05] LABS: Absolute Eosinophils 0.1 K/uL (0-0.5); Absolute Lymphocytes (CBC) 1.3 K/uL (0.7-4.9); Absolute Monocytes 0.3 K/uL (0.1-1.3); Basophils % 0.7 % (0-1.3); Eosinophils % 2.6 % (0-4.4); Hematocrit 28.6 % (39.6-49.0); Hemoglobin 9.5 g/dL (13.6-17.9); Lymphocytes % 26.4 % (15.3-44.8); MCH 28.4 pg (27.0-35.0); MCHC 33.2 g/dL (32.0-36.0); MCV 85.6 fL (80-100); MPV 7.7 fL (7.6-11.3); Monocytes % 7.2 % (3.3-12.3); Neutrophils % 63.1 % (41.7-73.7); Platelets 228 thou/uL (152-406); RBC Red Blood Cell Count 3.35 M/uL (4.33-5.43); Red Cell Distribution Width 15.4 % (12.1-15.2)
[2024-04-15] MEDS: AMLODIPINE 10 MG TAB PO SCH (08:14)
[2024-04-15] MEDS ORDERED: HOME MED 1 EA UNK (Olmesartan Medoxomil [Benicar] 20 MG Tablet) PO SCH (09:00)
--- NOTE | 2024-04-15 09:32 | P.PN ---
Date of Service: 04/15/24 Subjective: No acute events overnight Awaiting surgery/amputation today ROS: 10 point ROS as noted above, otherwise negative Physical exam GEN: Alert, oriented, NAD HEENT: Normal conjunctiva, sclera anicteric CV: Regular rate and rhythm, no edema Pulm: Nonlabored respirations on room air ABD: Soft, nontender, nondistended MSK: No joint tenderness Integumentary: Erythema, swelling to left fifth toe Neuro: Normal speech, normal affect Vitals reviewed Assessment and plan Osteromylitis of left fifth MTP -Ultrasound lower extremity venous Doppler bilateral reports "No evidence of deep venous thrombosis seen in either lower extremity. " -Foot x-ray reports "Destructive changes across the fifth MTP joint concerning for septic arthritis/osteomyelitis." -consult surgery-plan for operative management today 04/15 -IV antibiotics -Cefepime and vancomycin Hypertensive Emergency -Continue home medications -hydralazine PRN Diabetes mellitus-NIDDM -Accu-Chek with sliding scale insulin ESRD Anemia of chronic disease Fluid volume overload -Dialysis TTS -Completed HD 04/14 -Nephrology consulted History of hypertension -Continue home medication DVT ppx heparin Full code LOS 2-3 days Time Spent Managing Pts Care (In Minutes): 35
--- NOTE | 2024-04-15 09:42 | ECHO ---
HEIGHT: 5 ft 11 in WEIGHT: 252 lb 0 oz DATE OF STUDY: 04/14/[address]: Britney Laird NP 2-DIMENSIONAL: YES M.MODE: YES DOPPLER: YES COLOR FLOW: YES TDS: PORTABLE: YES DEFINITY: BUBBLE STUDY: DIAGNOSIS: ELEVATED TROPONIN CARDIAC HISTORY: CATHERIZATION: NO SURGERY: NO PROSTHETIC VALVE: NO PACEMAKER: NO MEASUREMENTS (cm) DIASTOLIC (NORMALS) SYSTOLIC (NORMALS) IVSd 1.2 (0.6-1.2) LA Diam 3.2 (1.9-4.0) LVEF 60-65% LVIDd 4.2 (3.5-5.7) LVIDs 2.8 (2.0-3.5) %FS 33% LVPWd 1.3 (0.6-1.2) Ao Diam 2.8 (2.0-3.7) 2 DIMENSIONAL ASSESSMENT: RIGHT ATRIUM: NORMAL LEFT ATRIUM: NORMAL RIGHT VENTRICLE: NORMAL LEFT VENTRICLE: NORMAL TRICUSPID VALVE: TRACE TRICUSPID REGURGITATION MITRAL VALVE: MODERATE MITRAL ANNULAR CALCIFICATION PULMONIC VALVE: NORMAL AORTIC VALVE: NORMAL PERICARDIAL EFFUSION: NONE AORTIC ROOT: NORMAL LEFT VENTRICULAR WALL MOTION: NORMAL DOPPLER/COLOR FLOW: DIASTOLIC DYSFUNCTION COMMENTS: 1. NORMAL LEFT VENTRICULAR SYSTOLIC FUNCTION, EJECTION FRACTION 60-65%, NORMAL WALL MOTION 2. GRADE III DIASTOLIC DYSFUNCTION 3. NORMAL FILLING PRESSURE TECHNOLOGIST: EDWIN BALDERAS
[2024-04-15] MEDS: LIDOCAINE HCL/EPINEPHRINE 20 ML MDV ONE (13:54)
[2024-04-15] MEDS: NA CHLORIDE 0.9% 500 ML ONE (16:00)
[2024-04-15] MEDS ORDERED: VANCOMYCIN 1 GM in NA CHLORIDE 0.9% 250 ML IVPB SCH (17:00)
[2024-04-15] MEDS: SUCCINYLCHOLINE 20 MG/ML (10 ML) IV ONE (17:02)
[2024-04-15] MEDS ORDERED: MIDAZOLAM HCL 2 MG/2 ML INJ ONE (17:16)
[2024-04-15] MEDS ORDERED: FENTANYL CITR 100 MCG/2 ML ONE (17:16)
[2024-04-15] MEDS ORDERED: propofoL 200 MG/20 ML VIAL IV ONE (17:16)
--- NOTE | 2024-04-15 18:12 | P.OP ---
Preoperative diagnosis: LEFT foot infected diabetic ulcer Postoperative diagnosis: LEFT foot infected diabetic ulcer Primary procedure: Debridement of LEFT foot diabetic ulcer @ 5th metatarsal head Anesthesia: GETA + Local Estimated blood loss: <5cc Specimen: Debridement Tissue, Cultures Findings: ~ 3cm round wound to plantar fascia Complications: None Transferred to: Recovery Room Condition: Good
--- NOTE | 2024-04-15 18:57 | OP ---
Date of Procedure: 04/15/2024 Surgeon: Junior Brizuela MD, Preoperative Diagnoses: Left foot infected diabetic ulcer. Postoperative Diagnosis: Left foot infected diabetic ulcer. Procedure Performed: Debridement of a left foot diabetic ulcer at the fifth metatarsal head. Anesthesia: General endotracheal plus local with 0.5% Marcaine. Estimated Blood Loss: Less than 5 cc. Specimen: Debridement tissue and culture sent for both aerobic and anaerobic speciation. Findings: Approximately 3 cm round wound into the plantar fascia. Complications: None. Disposition: The patient transferred to recovery room in good condition. Procedure In Detail: After informed consent was obtained, the patient was brought to the operating r oom, prepped and draped in the usual sterile fashion. After adequate anesthesia was achieved, I palp ated an area of the fifth metatarsal left foot and discovered there was an abscess type material drnav ulises from this area consistent with a diabetic foot ulcer. I cultured it with both aerobic and anaer obic speciation, made a circumferential incision around the area of concern down through subcutaneous tissues with a 15 blade. I then dissected down to the plantar fascia using electrocautery, ultimate ly removing all nonviable tissue. Cultures were sent at this time for both aerobic and anaerobic spe ciation as described above when abscess material was encountered. After the area was completely debr ided until clean, the area was irrigated copiously. Hemostasis was achieved with electrocautery. Th e wound was then packed with Vashe soaked gauze and a sterile dressing placed over top. The patient tolerated the procedure well without incident or complication, transferred to PACU in good condition. All counts were correct at the end of the case. MARIBEL/EVITA Voice ID: [id number] Report ID: [id number]
--- NOTE | 2024-04-15 21:01 | P.PN ---
Date of Service: 04/15/24 Vital Signs Temp Pulse Resp BP Pulse Ox 97.2 F 70 18 154/74 H 99 04/15/24 20:00 04/15/24 20:18 04/15/24 20:00 04/15/24 20:18 04/15/24 20:00 Medications Acetaminophen (Acetaminophen 500 Mg Tab) 500 mg PO Q6H PRN PRN Reason: Temp > 100F or mild pain Amlodipine Besylate (Amlodipine 10 Mg Tab) 10 mg PO DAILY [facility] Last Admin: 04/15/24 08:14 Dose: Not Given Aspirin (Aspirin Ec 81 Mg Tab) 81 mg PO DAILY [facility] Last Admin: 04/15/24 08:13 Dose: Not Given Atorvastatin Calcium (Atorvastatin 40 Mg Tab) 40 mg PO BEDTIME [facility] Last Admin: 04/15/24 20:19 Dose: 40 mg Calcitriol (Calcitrol 0.25 Mcg Cap) 0.5 mcg PO DAILY [facility] Last Admin: 04/15/24 08:15 Dose: Not Given Docusate Sodium (Docusate Na 100 Mg Cap) 100 mg PO BID [facility] Last Admin: 04/15/24 20:18 Dose: Not Given Doxazosin Mesylate (Doxazosin 4 Mg Tab) 8 mg PO BID [facility] Last Admin: 04/15/24 20:18 Dose: 8 mg Epoetin Delmar (Epoetin Delmar 10,000 Unit/Ml Vial) 10,000 unit IV EVERY HD [facility] Glucagon (Glucagon 1 Mg/Vial) 1 mg IM 1X PRN PRN Reason: HYPOGLYCEMIA Heparin Sodium (Porcine) (Heparin 5000 Unit/Ml 1 Ml Vial) 5,000 unit SQ Q8HR [facility] Last Admin: 04/15/24 16:11 Dose: Not Given Heparin Sodium (Porcine) (Heparin 1,000 Unit/Ml Vial) 6,000 unit IV EVERY HD PRN PRN Reason: AFTER EACH Hydralazine HCl (Hydralazine Hcl 20 Mg/Ml Vial) 10 mg IV Q4HP PRN PRN Reason: FOR SBP>160 OR DBP>100 [facility] Last Admin: 04/15/24 12:30 Dose: 10 mg Dextrose (Dextrose 10% Water Iv Soln.) 125 mls @ 0 mls/hr IV PRN PRN; Protocol PRN Reason: HYPOGLYCEMIA Albumin Human (Albumin 25%) 50 mls @ 100 mls/hr IV EVERY HD [facility] Vancomycin HCl 1 gm/ Sodium (Chloride) 250 mls @ 250 mls/hr IVPB AFTER EACH DIALYSIS [facility]; Protocol Last Admin: 04/14/24 23:53 Dose: 250 mls Cefepime HCl 1 gm/ Sodium (Chloride) 100 mls @ 200 mls/hr IV Q24H [facility]; Protocol Last Admin: 04/15/24 20:19 Dose: 100 mls Insulin Human Regular (Insulin Regular (Human) 100 Unit/Ml) 0 unit SQ ACHS [facility]; Protocol Last Admin: 04/15/24 20:09 Dose: Not Given Lactobacillus Acidoph/Bulgaricus (Lactobacillus/Acidophilus Tab) 1 tab PO BID [facility] Last Admin: 04/15/24 20:19 Dose: 1 tab Losartan Potassium (Losartan Potassium 50 Mg Tablet) 50 mg PO BID [facility] Last Admin: 04/15/24 20:18 Dose: 50 mg Mannitol (Mannitol 25% 12.5 Gm/50 Ml Vial) 12.5 gm IV EVERY HD PRN PRN Reason: Titrate to SBP (MUST DEFINE) Metoprolol Tartrate (Metoprolol Tar 50 Mg Tab) 50 mg PO BID [facility] Last Admin: 04/15/24 20:18 Dose: 50 mg Morphine Sulfate (Morphine 2 Mg/Ml Syr) 2 mg IV Q4H PRN PRN Reason: Pain scale 8-10 (Severe) Sevelamer Carbonate (Sevelamer Carbonate 800 Mg Tablet) 800 mg PO TIDWM [facility] Last Admin: 04/15/24 16:11 Dose: Not Given Microbiology Results 04/13/24 15:08 Blood - Blood Aerobic Blood Culture - Preliminary No growth in 24 hours. 04/13/24 15:08 Blood - Blood Anaerobic Blood Culture - Preliminary No growth in 24 hours. 04/13/24 14:50 Blood - Blood Aerobic Blood Culture - Preliminary No growth in 24 hours. 04/13/24 14:50 Blood - Blood Anaerobic Blood Culture - Preliminary No growth in 24 hours. Assessment/ Plan: Nephrology No dyspnea No chest pain No acute events overnight Vitals, medications, blood work and imaging reviewed in the chart General: In no apparent distress, Cooperative HEENT: Atraumatic Neck: Supple Respiratory: Normal air movement Cardiovascular: Regular rate/rhythm, Edema Gastrointestinal: Soft and benign, Non-distended Musculoskeletal: No clubbing, No contractures Integumentary: No rashes, No cyanosis, Diabetic ulcer Neurological: Normal speech Laboratory Data (last 24 hrs) 04/13/24 04/13/24 04/13/24 15:08 15:08 15:08 WBC 5.50 Hgb 9.7 L Hct 29.5 L Plt Count 252 PT 11.8 INR 1.06 Sodium 136 Potassium 4.4 BUN 46 H Creatinine 9.76 H Glucose 197 H Magnesium 2.1 Total Bilirubin 0.4 AST 11 L ALT < 14 L Alkaline Phosphatase 199 H Imagings Data: [id number] EXAM: Foot Left 3 View HISTORY: PAIN COMPARISON: 06/02/2021 FINDINGS: Bony destruction at the level of the fifth metatarsal involving the metatarsal head and proximal phalanx concerning for septic joint and bony destruction. Peripheral vascular calcifications. No acute fracture. IMPRESSION: Destructive changes across the fifth MTP joint concerning for septic arthritis/osteomyelitis [address] EXAMINATION: US LOWER EXTREMITY VENOUS DOPPLER BILATERAL CLINICAL INDICATION: Male, 48 years old.Pain;Swelling TECHNIQUE: Complete bilateral duplex sonography of the lower extremity veins was performed. The examination included compression for vein patency, color Doppler imaging and flow augmentation in response to distal compression of the distal external iliac, common femoral, femoral, popliteal, peroneal, tibial and great saphenous veins. [id number]. COMPARISON: No prior exams FINDINGS: Duplex sonography imaging demonstrates all deep examined to be fully compr essible with spontaneous, phasic and augmented flow bilaterally. IMPRESSION: No evidence of deep venous thrombosis seen in either lower extremity. [address] EXAMINATION: ONE VIEW CHEST XR CLINICAL INDICATION: Male, 48 years old.COUGH TECHNIQUE: 1 View, AP supine, X-ray of the chest was performed. [id number]. COMPARISON: 07/14/2022 FINDINGS: Lungs and pleura: Increase coarsening of pulmonary interstitium. No effusion. Heart and mediastinum: Cardiomegaly Osseous structures: No acute abnormality. Tubes/lines: None Other: None. IMPRESSION: Nonspecific increased prominence of the pulmonary interstitium could reflect developing edema. Conclusions/Impression: ESRD on HD -HD TIW HTN with CKD/ CHF -Continue Amlodipine -Continue Losartan and Metoprolol BID -Continue Doxazosin Peripheral Edema Diastolic CHF suspected -HD with UF -Echocardiogram reviewed DM II with CKD & Polyneuropathy -RISS DM II with foot ulcer Left foot osteomyelitis -Continue Abx -Wound care as ordered Anemia in CKD -Retacrit qHD CKD MBD -Continue Renvela and Calcitriol Hospitalist note reviewed Case reviewed with Dr. Casiano
[2024-04-16 06:34] LABS: Absolute Eosinophils 0.1 K/uL (0-0.5); Absolute Lymphocytes (CBC) 1.3 K/uL (0.7-4.9); Absolute Monocytes 0.3 K/uL (0.1-1.3); Absolute Neutrophil 3.7 K/uL (1.8-8.0); Basophils % 0.3 % (0-1.3); Eosinophils % 2.4 % (0-4.4); Hematocrit 28.6 % (39.6-49.0); Hemoglobin 9.6 g/dL (13.6-17.9); Lymphocytes % 23.6 % (15.3-44.8); MCH 28.4 pg (27.0-35.0); MCHC 33.5 g/dL (32.0-36.0); MCV 84.9 fL (80-100); MPV 7.1 fL (7.6-11.3); Monocytes % 5.7 % (3.3-12.3); Nucleated Red Blood Cells % 0.3 % (0-0); Platelets 221 thou/uL (152-406); RBC Red Blood Cell Count 3.37 M/uL (4.33-5.43); Red Cell Distribution Width 15.3 % (12.1-15.2)
[2024-04-16 06:51] LABS: Anion Gap 13.5 mEq/L (5.0-15.0); Magnesium 2.3 mg/dL (1.6-2.4); Phosphorus 5.5 mg/dL (2.5-4.9); Potassium 4.5 mEq/L (3.5-5.1)
[2024-04-16] MEDS ORDERED: HYDROCODONE/APAP 5/325 MG TAB PO PRN (09:22)
[2024-04-16] MEDS: EPOETIN ALFA 10,000 UNIT/ML VIAL IV SCH (14:30)
--- NOTE | 2024-04-16 14:30 | P.PN ---
Date of Service: 04/16/24 Subjective: No acute events overnight Status post debridement 04/15 doing well postoperatively ROS: 10 point ROS as noted above, otherwise negative Physical exam GEN: Alert, oriented, NAD HEENT: Normal conjunctiva, sclera anicteric CV: Regular rate and rhythm, no edema Pulm: Nonlabored respirations on room air ABD: Soft, nontender, nondistended MSK: No joint tenderness Integumentary: Dressing in place to left foot CDI Neuro: Normal speech, normal affect Vitals reviewed Assessment and plan Osteromylitis of left fifth MTP -Ultrasound lower extremity venous Doppler bilateral reports "No evidence of deep venous thrombosis seen in either lower extremity. " -Foot x-ray reports "Destructive changes across the fifth MTP joint concerning for septic arthritis/osteomyelitis." -consult surgery-plan for operative management today 04/15 was completed with debridement -Cefepime and vancomycin -Limited weightbearing status left lower extremity, PT consultation placed Hypertensive Emergency -Continue home medications -hydralazine PRN Diabetes mellitus-NIDDM -Accu-Chek with sliding scale insulin ESRD Anemia of chronic disease Fluid volume overload -Dialysis TTS -Nephrology consulted History of hypertension -Continue home medication DVT ppx heparin Full code LOS 2-3 days Time Spent Managing Pts Care (In Minutes): 35
--- NOTE | 2024-04-16 20:12 | P.PN ---
Date of Service: 04/16/24 Vital Signs Temp Pulse Resp BP Pulse Ox 97.7 F 72 16 119/62 100 04/16/24 16:00 04/16/24 16:00 04/16/24 16:00 04/16/24 16:00 04/16/24 16:00 Medications Acetaminophen (Acetaminophen 500 Mg Tab) 500 mg PO Q6H PRN PRN Reason: Temp > 100F or mild pain Hydrocodone Bitart/Acetaminophen (Hydrocodone/Apap 5/325 Mg Tab) 1 tab PO Q6H PRN PRN Reason: Pain scale 5-7 (Moderate) Amlodipine Besylate (Amlodipine 10 Mg Tab) 10 mg PO DAILY [facility] Last Admin: 04/16/24 09:00 Dose: Not Given Aspirin (Aspirin Ec 81 Mg Tab) 81 mg PO DAILY [facility] Last Admin: 04/16/24 09:25 Dose: 81 mg Atorvastatin Calcium (Atorvastatin 40 Mg Tab) 40 mg PO BEDTIME [facility] Last Admin: 04/15/24 20:19 Dose: 40 mg Calcitriol (Calcitrol 0.25 Mcg Cap) 0.5 mcg PO DAILY [facility] Last Admin: 04/16/24 09:25 Dose: 0.5 mcg Docusate Sodium (Docusate Na 100 Mg Cap) 100 mg PO BID [facility] Last Admin: 04/16/24 09:00 Dose: Not Given Doxazosin Mesylate (Doxazosin 4 Mg Tab) 8 mg PO BID [facility] Last Admin: 04/16/24 09:25 Dose: 8 mg Epoetin Delmar (Epoetin Delmar 10,000 Unit/Ml Vial) 10,000 unit IV EVERY HD [facility] Last Admin: 04/16/24 14:30 Dose: 10,000 unit Glucagon (Glucagon 1 Mg/Vial) 1 mg IM 1X PRN PRN Reason: HYPOGLYCEMIA Heparin Sodium (Porcine) (Heparin 5000 Unit/Ml 1 Ml Vial) 5,000 unit SQ Q8HR [facility] Last Admin: 04/16/24 16:12 Dose: 5,000 unit Heparin Sodium (Porcine) (Heparin 1,000 Unit/Ml Vial) 2,000 unit IV EVERY HD PRN PRN Reason: Prevent HD System Clotting Last Admin: 04/16/24 11:57 Dose: 2,000 unit Hydralazine HCl (Hydralazine Hcl 20 Mg/Ml Vial) 10 mg IV Q4HP PRN PRN Reason: FOR SBP>160 OR DBP>100 [facility] Last Admin: 04/16/24 05:07 Dose: 10 mg Dextrose (Dextrose 10% Water Iv Soln.) 125 mls @ 0 mls/hr IV PRN PRN; Protocol PRN Reason: HYPOGLYCEMIA Albumin Human (Albumin 25%) 50 mls @ 100 mls/hr IV EVERY HD [facility] Cefepime HCl 1 gm/ Sodium (Chloride) 100 mls @ 200 mls/hr IV Q24H [facility]; Protocol Last Admin: 04/15/24 20:19 Dose: 100 mls Vancomycin HCl 1 gm/ Sodium (Chloride) 250 mls @ 250 mls/hr IVPB AFTER EACH DIALYSIS [facility]; Protocol Insulin Human Regular (Insulin Regular (Human) 100 Unit/Ml) 0 unit SQ ACHS [facility]; Protocol Last Admin: 04/16/24 16:12 Dose: 2 unit Lactobacillus Acidoph/Bulgaricus (Lactobacillus/Acidophilus Tab) 1 tab PO BID [facility] Last Admin: 04/16/24 09:25 Dose: 1 tab Losartan Potassium (Losartan Potassium 50 Mg Tablet) 50 mg PO BID [facility] Last Admin: 04/16/24 09:00 Dose: Not Given Mannitol (Mannitol 25% 12.5 Gm/50 Ml Vial) 12.5 gm IV EVERY HD PRN PRN Reason: Titrate to SBP (MUST DEFINE) Metoprolol Tartrate (Metoprolol Tar 50 Mg Tab) 50 mg PO BID [facility] Last Admin: 04/16/24 09:00 Dose: Not Given Morphine Sulfate (Morphine 2 Mg/Ml Syr) 2 mg IV Q4H PRN PRN Reason: Pain scale 8-10 (Severe) Sevelamer Carbonate (Sevelamer Carbonate 800 Mg Tablet) 800 mg PO TIDWM [facility] Last Admin: 04/16/24 16:13 Dose: 800 mg Microbiology Results 04/13/24 15:08 Blood - Blood Aerobic Blood Culture - Preliminary No growth in 24 hours. 04/13/24 15:08 Blood - Blood Anaerobic Blood Culture - Preliminary No growth in 24 hours. 04/13/24 14:50 Blood - Blood Aerobic Blood Culture - Preliminary No growth in 24 hours. 04/13/24 14:50 Blood - Blood Anaerobic Blood Culture - Preliminary No growth in 24 hours. Assessment/ Plan: Nephrology No dyspnea No chest pain No acute events overnight Vitals, medications, blood work and imaging reviewed in the chart General: In no apparent distress, Cooperative HEENT: Atraumatic Neck: Supple Respiratory: Normal air movement Cardiovascular: Regular rate/rhythm, Edema Gastrointestinal: Soft and benign, Non-distended Musculoskeletal: No clubbing, No contractures Integumentary: No rashes, No cyanosis, Diabetic ulcer Neurological: Normal speech Laboratory Data (last 24 hrs) 04/13/24 04/13/24 04/13/24 15:08 15:08 15:08 WBC 5.50 Hgb 9.7 L Hct 29.5 L Plt Count 252 PT 11.8 INR 1.06 Sodium 136 Potassium 4.4 BUN 46 H Creatinine 9.76 H Glucose 197 H Magnesium 2.1 Total Bilirubin 0.4 AST 11 L ALT < 14 L Alkaline Phosphatase 199 H Imagings Data: [address] EXAM: Foot Left 3 View HISTORY: PAIN COMPARISON: 06/02/2021 FINDINGS: Bony destruction at the level of the fifth metatarsal involving the metatarsal head and proximal phalanx concerning for septic joint and bony destruction. Peripheral vascular calcifications. No acute fracture. IMPRESSION: Destructive changes across the fifth MTP joint concerning for septic arthritis/osteomyelitis [address] EXAMINATION: US LOWER EXTREMITY VENOUS DOPPLER BILATERAL CLINICAL INDICATION: Male, 48 years old.Pain;Swelling TECHNIQUE: Complete bilateral duplex sonography of the lower extremity veins was performed. The examination included compression for vein patency, color Doppler imaging and flow augmentation in response to distal compression of the distal external iliac, common femoral, femoral, popliteal, peroneal, tibial and great saphenous veins. [id number]. COMPARISON: No prior exams FINDINGS: Duplex sonography imaging demonstrates all deep examined to be fully compressible with spontaneous, phasic and augmented flow bilaterally. IMPRESSION: No evidence of deep venous thrombosis seen in either lower extremity. [address] EXAMINATION: ONE VIEW CHEST XR CLINICAL INDICATION: Male, 48 years old.COUGH TECHNIQUE: 1 View, AP supine, X-ray of the chest was performed. [id number]. COMPARISON: 07/14/2022 FINDINGS: Lungs and pleura: Increase coarsening of pulmonary interstitium. No effusion. Heart and mediastinum: Cardiomegaly Osseous structures: No acute abnormality. Tubes/lines: None Other: None. IMPRESSION: Nonspecific increased prominence of the pulmonary interstitium could reflect developing edema. Conclusions/Impression: ESRD on HD -HD TIW HTN with CKD/ CHF -Continue Amlodipine -Continue Losartan and Metoprolol BID -Continue Doxazosin Peripheral Edema Diastolic CHF suspected -HD with UF -Echocardiogram reviewed DM II with CKD & Polyneuropathy -RISS DM II with foot ulcer Left foot osteomyelitis -Continue Abx -Wound care as ordered -Surgery is following Anemia in CKD -Retacrit qHD CKD MBD -Continue Renvela and Calcitriol Hospitalist note reviewed Case reviewed with Dr. Casiano
[2024-04-17 06:03] LABS: Absolute Eosinophils 0.1 K/uL (0-0.5); Absolute Lymphocytes (CBC) 1.6 K/uL (0.7-4.9); Absolute Monocytes 0.4 K/uL (0.1-1.3); Absolute Neutrophil 3.7 K/uL (1.8-8.0); Basophils % 0.5 % (0-1.3); Eosinophils % 1.9 % (0-4.4); Hematocrit 29.1 % (39.6-49.0); Hemoglobin 9.9 g/dL (13.6-17.9); Lymphocytes % 27.4 % (15.3-44.8); MCH 29.1 pg (27.0-35.0); MCHC 34.2 g/dL (32.0-36.0); MPV 7.6 fL (7.6-11.3); Monocytes % 7.3 % (3.3-12.3); Neutrophils % 62.9 % (41.7-73.7); Nucleated Red Blood Cells % 0.3 % (0-0); Platelets 226 thou/uL (152-406); RBC Red Blood Cell Count 3.42 M/uL (4.33-5.43); Red Cell Distribution Width 15.4 % (12.1-15.2)
[2024-04-17 06:37] LABS: Anion Gap 14.2 mEq/L (5.0-15.0); Magnesium 2.2 mg/dL (1.6-2.4); Phosphorus 5.6 mg/dL (2.5-4.9); Potassium 4.2 mEq/L (3.5-5.1)
--- NOTE | 2024-04-17 14:59 | P.PN ---
Date of Service: 04/17/24 Subjective: No acute events overnight Status post debridement 04/15 doing well postoperatively PT evaluated General surgery recommends IV antibiotics with dialysis ROS: 10 point ROS as noted above, otherwise negative Physical exam GEN: Alert, oriented, NAD HEENT: Normal conjunctiva, sclera anicteric CV: Regular rate and rhythm, no edema Pulm: Nonlabored respirations on room air ABD: Soft, nontender, nondistended MSK: No joint tenderness Integumentary: Dressing in place to left foot CDI Neuro: Normal speech, normal affect Vitals reviewed Assessment and plan Osteromylitis of left fifth MTP -Ultrasound lower extremity venous Doppler bilateral reports "No evidence of deep venous thrombosis seen in either lower extremity. " -Foot x-ray reports "Destructive changes across the fifth MTP joint concerning for septic arthritis/osteomyelitis." -consult surgery-plan for operative management today 04/15 was completed with debridement -Cefepime and vancomycin -Plan to continue vancomycin with dialysis for a total of 2 weeks which is being arranged -Limited weightbearing status left lower extremity, PT consultation placed -Working on obtaining a knee scooter Hypertensive Emergency -Continue home medications -hydralazine PRN Diabetes mellitus-NIDDM -Accu-Chek with sliding scale insulin ESRD Anemia of chronic disease Fluid volume overload -Dialysis TTS -Nephrology consulted History of hypertension -Continue home medication DVT ppx heparin Full code LOS 2-3 days Time Spent Managing Pts Care (In Minutes): 35
--- NOTE | 2024-04-17 17:46 | P.PN ---
Nephrology (S) pt reports improved Lt lower leg swelling, foot extensive wrapped, dialyzed yesterday, no CP or dyspnea (O) vitals reviewed in the EMR General: In no apparent distress, Cooperative HEENT: Atraumatic, not needing O2 Neck: Supple Respiratory: Normal air movement, no rales Cardiovascular: Regular rate/rhythm, mild left left distal edema Gastrointestinal: Soft and benign, Non-distended Musculoskeletal: No muscle spasms, shins non tender Integumentary: Lt foot extensive wrapped Neurological: Normal speech, awake, alert Laboratory Data (last 24 hrs) Reviewed in the EMR Conclusions/Impression: ESRD on iHD -HD ordered for tmrw, see orders for details, metab profile and fluid status stable, possible discharge to home post Abx tmrw HTN with CKD/ CHF, labile, sub optimally controlled -On several agents, yet accelerated at times, possible autonomic dysfunction from his DM/other, monitor closely DM II with CKD & Polyneuropathy -BG often > 200, will ask iM to review insulin dosing DM II with foot ulcer Left foot osteomyelitis -Thus far cultures without specific organism growth other than group B strep, for now will cont IV Vanc coverage
[2024-04-18 06:46] LABS: Absolute Eosinophils 0.2 K/uL (0-0.5); Absolute Lymphocytes (CBC) 1.7 K/uL (0.7-4.9); Absolute Monocytes 0.4 K/uL (0.1-1.3); Absolute Neutrophil 3.6 K/uL (1.8-8.0); Basophils % 0.6 % (0-1.3); Eosinophils % 2.7 % (0-4.4); Hematocrit 27.5 % (39.6-49.0); Hemoglobin 9.4 g/dL (13.6-17.9); Lymphocytes % 28.9 % (15.3-44.8); MCHC 34.2 g/dL (32.0-36.0); MCV 84.8 fL (80-100); MPV 7.5 fL (7.6-11.3); Monocytes % 6.5 % (3.3-12.3); Neutrophils % 61.3 % (41.7-73.7); Nucleated Red Blood Cells % 0.3 % (0-0); Platelets 212 thou/uL (152-406); RBC Red Blood Cell Count 3.24 M/uL (4.33-5.43); Red Cell Distribution Width 15.3 % (12.1-15.2)
[2024-04-18 06:59] LABS: Anion Gap 12.2 mEq/L (5.0-15.0); Magnesium 2.2 mg/dL (1.6-2.4); Phosphorus 5.8 mg/dL (2.5-4.9); Potassium 4.2 mEq/L (3.5-5.1)
[2024-04-18] MEDS: VANCOMYCIN 1 GM/VIAL ONE (15:21)
[2024-04-18] MEDS: NA CHLORIDE 0.9% 250 ML ONE (15:22)
[2024-04-18] MEDS: VANCOMYCIN 1 GM in NA CHLORIDE 0.9% 250 ML IVPB SCH (15:27)
--- NOTE | 2024-04-18 15:58 | P.PN ---
Nephrology (S) pt reports improved Lt lower leg swelling, foot extensive wrapped, seen after HD, tolerated session, no CP or dyspnea but worried about mobility status and how he will manage at home (O) vitals reviewed in the EMR General: In no apparent distress, Cooperative HEENT: Atraumatic, not needing O2 Neck: Supple Respiratory: Normal air movement, no rales Cardiovascular: Regular rate/rhythm, mild left left distal edema Gastrointestinal: Soft and benign, Non-distended Musculoskeletal: No muscle spasms, shins non tender Integumentary: Lt foot extensive wrapped Neurological: Normal speech, awake, alert Laboratory Data (last 24 hrs) Reviewed in the EMR Conclusions/Impression: ESRD on iHD -cont iHD TTS, stable metab profile and fluid status HTN with CKD/ CHF, labile, sub optimally controlled -On several agents, yet accelerated at times, possible autonomic dysfunction from his DM/other, monitor closely DM II with CKD & Polyneuropathy -BG often > 200, will ask iM to review insulin dosing DM II with foot ulcer Left foot osteomyelitis -Thus far cultures without specific organism growth other than group B strep, but given possibility for osteo, will for now will cont IV Abx coverage with Vanc or cephalosporin
--- NOTE | 2024-04-18 16:16 | P.PN ---
Date of Service: 04/18/24 Subjective: No acute events overnight Status post debridement 04/15 doing well postoperatively PT evaluated General surgery recommends IV antibiotics with dialysis ROS: 10 point ROS as noted above, otherwise negative Physical exam GEN: Alert, oriented, NAD HEENT: Normal conjunctiva, sclera anicteric CV: Regular rate and rhythm, no edema Pulm: Nonlabored respirations on room air ABD: Soft, nontender, nondistended MSK: No joint tenderness Integumentary: Dressing in place to left foot CDI Neuro: Normal speech, normal affect Vitals reviewed Assessment and plan Osteromylitis of left fifth MTP -Ultrasound lower extremity venous Doppler bilateral reports "No evidence of deep venous thrombosis seen in either lower extremity. " -Foot x-ray reports "Destructive changes across the fifth MTP joint concerning for septic arthritis/osteomyelitis." -consult surgery-plan for operative management today 04/15 was completed with debridement -Cefepime and vancomycin -Plan to continue vancomycin with dialysis for a total of 2 weeks which is being arranged -Limited weightbearing status left lower extremity, PT consultation placed -Working on obtaining a knee scooter Limited mobility/non weight bearing status LLE Working on obtaining knee scooter Has difficulty getting around given neuropathy to the right foot, nonweightbearing status to the left foot Also has a 18 inch step to get to his house in the home not will design for limited mobility Pending further evaluation with PT, obtaining knee scooter to delineate his needs going forward May possibly need SNF at discharge Hypertensive Emergency -Continue home medications -hydralazine PRN Diabetes mellitus-NIDDM -Accu-Chek with sliding scale insulin ESRD Anemia of chronic disease Fluid volume overload -Dialysis TTS -Nephrology consulted History of hypertension -Continue home medication DVT ppx heparin Full code LOS 2-3 days Time Spent Managing Pts Care (In Minutes): 35
--- NOTE | 2024-04-19 13:36 | P.PN ---
Date of Service: 04/19/24 Subjective: No acute events overnight Status post debridement 04/15 doing well postoperatively PT evaluated-needing knee scooter at least for mobility General surgery recommends IV antibiotics with dialysis ROS: 10 point ROS as noted above, otherwise negative Physical exam GEN: Alert, oriented, NAD HEENT: Normal conjunctiva, sclera anicteric CV: Regular rate and rhythm, no edema Pulm: Nonlabored respirations on room air ABD: Soft, nontender, nondistended MSK: No joint tenderness Integumentary: Dressing in place to left foot CDI Neuro: Normal speech, normal affect Vitals reviewed Assessment and plan Osteromylitis of left fifth MTP -Ultrasound lower extremity venous Doppler bilateral reports "No evidence of deep venous thrombosis seen in either lower extremity. " -Foot x-ray reports "Destructive changes across the fifth MTP joint concerning for septic arthritis/osteomyelitis." -consult surgery-plan for operative management today 04/15 was completed with debridement -Cefepime and vancomycin -Plan to continue vancomycin with dialysis for a total of 2 weeks which is being arranged -Limited weightbearing status left lower extremity, PT consultation placed -Working on obtaining a knee scooter Limited mobility/non weight bearing status LLE Working on obtaining knee scooter Has difficulty getting around given neuropathy to the right foot, nonweightbearing status to the left foot Also has a 18 inch step to get to his house in the home not will design for limited mobility Pending further evaluation with PT, obtaining knee scooter to delineate his needs going forward May need SNF at discharge, await arrival of knee scooter/further recs from PT Hypertensive Emergency -Continue home medications -hydralazine PRN Diabetes mellitus-NIDDM -Accu-Chek with sliding scale insulin ESRD Anemia of chronic disease Fluid volume overload -Dialysis TTS -Nephrology consulted History of hypertension -Continue home medication DVT ppx heparin Full code LOS 2-3 days Time Spent Managing Pts Care (In Minutes): 35
--- NOTE | 2024-04-20 10:09 | P.PN ---
Date of Service: 04/20/24 Subjective: No acute events overnight Status post debridement 04/15 doing well postoperatively PT evaluated-needing knee scooter at least for mobility General surgery recommends IV antibiotics with dialysis ROS: 10 point ROS as noted above, otherwise negative Physical exam GEN: Alert, oriented, NAD HEENT: Normal conjunctiva, sclera anicteric CV: Regular rate and rhythm, no edema Pulm: Nonlabored respirations on room air ABD: Soft, nontender, nondistended MSK: No joint tenderness Integumentary: Dressing in place to left foot CDI Neuro: Normal speech, normal affect Vitals reviewed Assessment and plan Osteromylitis of left fifth MTP -Ultrasound lower extremity venous Doppler bilateral reports "No evidence of deep venous thrombosis seen in either lower extremity. " -Foot x-ray reports "Destructive changes across the fifth MTP joint concerning for septic arthritis/osteomyelitis." -consult surgery-plan for operative management today 04/15 was completed with debridement -Cefepime and vancomycin -Plan to continue vancomycin with dialysis for a total of 2 weeks which is being arranged -Limited weightbearing status left lower extremity, PT consultation placed -Working on obtaining a knee scooter/PT eval to determine needs Limited mobility/non weight bearing status LLE Working on obtaining knee scooter Has difficulty getting around given neuropathy to the right foot, nonweightbearing status to the left foot Also has a 18 inch step to get to his house in the home not will design for limited mobility Pending further evaluation with PT, obtaining knee scooter to delineate his needs going forward May need SNF at discharge, await arrival of knee scooter/further recs from PT Hypertensive Emergency -Continue home medications -hydralazine PRN Diabetes mellitus-NIDDM -Accu-Chek with sliding scale insulin ESRD Anemia of chronic disease Fluid volume overload -Dialysis TTS -Nephrology consulted History of hypertension -Continue home medication DVT ppx heparin Full code LOS 2-3 days Time Spent Managing Pts Care (In Minutes): 35
--- NOTE | 2024-04-20 20:21 | P.PN ---
Date of Service: 04/20/24 Vital Signs Temp Pulse Resp BP Pulse Ox 97.4 F 63 16 153/86 H 100 04/20/24 16:00 04/20/24 16:00 04/20/24 16:00 04/20/24 16:00 04/20/24 16:00 Medications Acetaminophen (Acetaminophen 500 Mg Tab) 500 mg PO Q6H PRN PRN Reason: Temp > 100F or mild pain Hydrocodone Bitart/Acetaminophen (Hydrocodone/Apap 5/325 Mg Tab) 1 tab PO Q6H PRN PRN Reason: Pain scale 5-7 (Moderate) Amlodipine Besylate (Amlodipine 10 Mg Tab) 10 mg PO DAILY [facility] Last Admin: 04/20/24 08:50 Dose: 10 mg Aspirin (Aspirin Ec 81 Mg Tab) 81 mg PO DAILY [facility] Last Admin: 04/20/24 08:48 Dose: 81 mg Atorvastatin Calcium (Atorvastatin 40 Mg Tab) 40 mg PO BEDTIME [facility] Last Admin: 04/19/24 20:29 Dose: 40 mg Calcitriol (Calcitrol 0.25 Mcg Cap) 0.5 mcg PO DAILY [facility] Last Admin: 04/20/24 08:47 Dose: 0.5 mcg Docusate Sodium (Docusate Na 100 Mg Cap) 100 mg PO BID [facility] Last Admin: 04/20/24 08:48 Dose: Not Given Doxazosin Mesylate (Doxazosin 4 Mg Tab) 8 mg PO BID [facility] Last Admin: 04/20/24 08:47 Dose: 8 mg Glucagon (Glucagon 1 Mg/Vial) 1 mg IM 1X PRN PRN Reason: HYPOGLYCEMIA Heparin Sodium (Porcine) (Heparin 5000 Unit/Ml 1 Ml Vial) 5,000 unit SQ Q8HR [facility] Last Admin: 04/20/24 16:05 Dose: 5,000 unit Heparin Sodium (Porcine) (Heparin 1,000 Unit/Ml Vial) 2,000 unit IV EVERY HD PRN PRN Reason: Prevent HD System Clotting Last Admin: 04/18/24 10:43 Dose: 2,000 unit Hydralazine HCl (Hydralazine Hcl 20 Mg/Ml Vial) 10 mg IV Q4HP PRN PRN Reason: FOR SBP>160 OR DBP>100 [facility] Last Admin: 04/19/24 12:06 Dose: 10 mg Dextrose (Dextrose 10% Water Iv Soln.) 125 mls @ 0 mls/hr IV PRN PRN; Protocol PRN Reason: HYPOGLYCEMIA Vancomycin HCl 1 gm/ Sodium (Chloride) 250 mls @ 250 mls/hr IVPB AFTER EACH DIALYSIS [facility]; Protocol Last Admin: 04/18/24 15:27 Dose: 250 mls Insulin Human Regular (Insulin Regular (Human) 100 Unit/Ml) 0 unit SQ ACHS [facility]; Protocol Last Admin: 04/20/24 15:38 Dose: Not Given Lactobacillus Acidoph/Bulgaricus (Lactobacillus/Acidophilus Tab) 1 tab PO BID [facility] Last Admin: 04/20/24 08:47 Dose: 1 tab Losartan Potassium (Losartan Potassium 50 Mg Tablet) 50 mg PO BID [facility] Last Admin: 04/20/24 08:47 Dose: 50 mg Metoprolol Tartrate (Metoprolol Tar 50 Mg Tab) 50 mg PO BID [facility] Last Admin: 04/20/24 08:47 Dose: 50 mg Sevelamer Carbonate (Sevelamer Carbonate 800 Mg Tablet) 800 mg PO TIDWM [facility] Last Admin: 04/20/24 16:05 Dose: 800 mg Microbiology Results 04/13/24 15:08 Blood - Blood Aerobic Blood Culture - Final No growth in 5 days. 04/13/24 15:08 Blood - Blood Anaerobic Blood Culture - Final No growth in 5 days. 04/13/24 14:50 Blood - Blood Aerobic Blood Culture - Final No growth in 5 days. 04/13/24 14:50 Blood - Blood Anaerobic Blood Culture - Final No growth in 5 days. Assessment/ Plan: Nephrology No dyspnea No chest pain No acute events overnight Vitals, medications, blood work and imaging reviewed in the chart General: In no apparent distress, Cooperative HEENT: Atraumatic Neck: Supple Respiratory: Normal air movement Cardiovascular: Regular rate/rhythm, Edema Gastrointestinal: Soft and benign, Non-distended Musculoskeletal: No clubbing, No contractures Integumentary: No rashes, No cyanosis, Diabetic ulcer Neurological: Normal speech Laboratory Data (last 24 hrs) 04/13/24 04/13/24 04/13/24 15:08 15:08 15:08 WBC 5.50 Hgb 9.7 L Hct 29.5 L Plt Count 252 PT 11.8 INR 1.06 Sodium 136 Potassium 4.4 BUN 46 H Creatinine 9.76 H Glucose 197 H Magnesium 2.1 Total Bilirubin 0.4 AST 11 L ALT < 14 L Alkaline Phosphatase 199 H Imagings Data: [id number] EXAM: Foot Left 3 View HISTORY: PAIN COMPARISON: 06/02/2021 FINDINGS: Bony destruction at the level of the fifth metatarsal involving the metatarsal head and proximal phalanx concerning for septic joint and bony destruction. Peripheral vascular calcifications. No acute fracture. IMPRESSION: Destructive changes across the fifth MTP joint concerning for septic arthritis/osteomyelitis [id number] EXAMINATION: US LOWER EXTREMITY VENOUS DOPPLER BILATERAL CLINICAL INDICATION: Male, 48 years old.Pain;Swelling TECHNIQUE: Complete bilateral duplex sonography of the lower extremity veins was performed. The examination included compression for vein patency, color Doppler imaging and flow augmentation in response to distal compression of the distal external iliac, common femoral, femoral, popliteal, peroneal, tibial and great saphenous veins. [id number]. COMPARISON: No prior exams FINDINGS: Duplex sonography imaging demonstrates all deep examined to be fully compressible with spontaneous, phasic and augmented flow bilaterally. IMPRESSION: No evidence of deep venous thrombosis seen in either lower extremity. [id number] EXAMINATION: ONE VIEW CHEST XR CLINICAL INDICATION: Male, 48 years old.COUGH TECHNIQUE: 1 View, AP supine, X-ray of the chest was performed. [id number]. COMPARISON: 07/14/2022 FINDINGS: Lungs and pleura: Increase coarsening of pulmonary interstitium. No effusion. Heart and mediastinum: Cardiomegaly Osseous structures: No acute abnormality. Tubes/lines: None Other: None. IMPRESSION: Nonspecific increased prominence of the pulmonary interstitium could reflect developing edema. Conclusions/Impression: ESRD on HD -HD TIW HTN with CKD/ CHF -Continue Amlodipine -Continue Losartan and Metoprolol BID -Continue Doxazosin Peripheral Edema Diastolic CHF suspected -HD with UF -Echocardiogram reviewed DM II with CKD & Polyneuropathy -RISS DM II with foot ulcer Left toe osteomyelitis -Continue Abx -Wound care as ordered -Surgery is following Anemia in CKD -Retacrit qHD CKD MBD -Continue Renvela and Calcitriol Hospitalist note reviewed
[2024-04-21 12:15] LABS: Anion Gap 12.5 mEq/L (5.0-15.0); Potassium 4.5 mEq/L (3.5-5.1)
--- NOTE | 2024-04-21 18:08 | P.PN ---
Date of Service: 04/21/24 Subjective: Knee scooter arrived, PT working with him no new complaints ROS: 10 point ROS as noted above, otherwise negative Physical exam GEN: AAO x3, NAD HEENT: Normal conjunctiva, sclera anicteric CV: RRR, no edema Pulm: Nonlabored respirations, on room air, clear BBS ABD: Soft on palpation, NT/ND MSK: No joint tenderness Integumentary: Dressing in place to left foot CDI Neuro: Normal speech, normal affect Vitals reviewed Assessment and plan Osteromylitis of left fifth MTP -Ultrasound lower extremity venous Doppler bilateral reports "No evidence of deep venous thrombosis seen in either lower extremity. " -Foot x-ray reports "Destructive changes across the fifth MTP joint concerning for septic arthritis/osteomyelitis." -consult surgery-plan for operative management today 04/15 was completed with debridement -Continue vancomycin -Plan to continue vancomycin with dialysis for a total of 2 weeks which is being arranged -Limited weightbearing status left lower extremity, PT consultation placed -Working on obtaining a knee scooter/PT eval to determine needs Limited mobility/non weight bearing status LLE -Has difficulty getting around given neuropathy to the right foot, nonweightbearing status to the left foot -Also has a 18 inch step to get to his house in the home not will design for limited mobility -Pending further evaluation with PT, Knee scooter obtained -May need SNF at discharge, await arrival of knee scooter/further recs from PT Hypertensive Emergency -Continue home medications -hydralazine PRN Diabetes mellitus-NIDDM -Accu-Chek with sliding scale insulin ESRD Anemia of chronic disease Fluid volume overload -Dialysis TTS -Dialysis today with 3000 output -Nephrology consulted History of hypertension -Continue home medication DVT ppx heparin Full code LOS 2-3 days Dispo HH with SN and PT
--- NOTE | 2024-04-21 19:33 | P.PN ---
Date of Service: 04/21/24 Vital Signs Temp Pulse Resp BP Pulse Ox 97.5 F 60 20 182/91 H 96 04/21/24 16:00 04/21/24 16:00 04/21/24 16:00 04/21/24 16:00 04/21/24 16:00 Medications Acetaminophen (Acetaminophen 500 Mg Tab) 500 mg PO Q6H PRN PRN Reason: Temp > 100F or mild pain Hydrocodone Bitart/Acetaminophen (Hydrocodone/Apap 5/325 Mg Tab) 1 tab PO Q6H PRN PRN Reason: Pain scale 5-7 (Moderate) Amlodipine Besylate (Amlodipine 10 Mg Tab) 10 mg PO DAILY [facility] Last Admin: 04/21/24 09:00 Dose: Not Given Aspirin (Aspirin Ec 81 Mg Tab) 81 mg PO DAILY [facility] Last Admin: 04/21/24 08:57 Dose: 81 mg Atorvastatin Calcium (Atorvastatin 40 Mg Tab) 40 mg PO BEDTIME [facility] Last Admin: 04/20/24 20:45 Dose: 40 mg Calcitriol (Calcitrol 0.25 Mcg Cap) 0.5 mcg PO DAILY [facility] Last Admin: 04/21/24 08:57 Dose: 0.5 mcg Docusate Sodium (Docusate Na 100 Mg Cap) 100 mg PO BID [facility] Last Admin: 04/21/24 09:00 Dose: Not Given Doxazosin Mesylate (Doxazosin 4 Mg Tab) 8 mg PO BID [facility] Last Admin: 04/21/24 09:00 Dose: Not Given Glucagon (Glucagon 1 Mg/Vial) 1 mg IM 1X PRN PRN Reason: HYPOGLYCEMIA Heparin Sodium (Porcine) (Heparin 5000 Unit/Ml 1 Ml Vial) 5,000 unit SQ Q8HR [facility] Last Admin: 04/21/24 16:28 Dose: 5,000 unit Heparin Sodium (Porcine) (Heparin 1,000 Unit/Ml Vial) 2,000 unit IV EVERY HD PRN PRN Reason: Prevent HD System Clotting Last Admin: 04/18/24 10:43 Dose: 2,000 unit Hydralazine HCl (Hydralazine Hcl 20 Mg/Ml Vial) 10 mg IV Q4HP PRN PRN Reason: FOR SBP>160 OR DBP>100 [facility] Last Admin: 04/19/24 12:06 Dose: 10 mg Dextrose (Dextrose 10% Water Iv Soln.) 125 mls @ 0 mls/hr IV PRN PRN; Protocol PRN Reason: HYPOGLYCEMIA Vancomycin HCl 1 gm/ Sodium (Chloride) 250 mls @ 250 mls/hr IVPB AFTER EACH DIALYSIS [facility]; Protocol Last Admin: 04/21/24 15:15 Dose: 250 mls Insulin Human Regular (Insulin Regular (Human) 100 Unit/Ml) 0 unit SQ ACHS [facility]; Protocol Last Admin: 04/21/24 16:37 Dose: 2 unit Lactobacillus Acidoph/Bulgaricus (Lactobacillus/Acidophilus Tab) 1 tab PO BID [facility] Last Admin: 04/21/24 08:57 Dose: 1 tab Losartan Potassium (Losartan Potassium 50 Mg Tablet) 50 mg PO BID [facility] Last Admin: 04/21/24 08:57 Dose: 50 mg Metoprolol Tartrate (Metoprolol Tar 50 Mg Tab) 50 mg PO BID [facility] Last Admin: 04/21/24 09:00 Dose: Not Given Sevelamer Carbonate (Sevelamer Carbonate 800 Mg Tablet) 800 mg PO TIDWM [facility] Last Admin: 04/21/24 16:28 Dose: 800 mg Microbiology Results 04/13/24 15:08 Blood - Blood Aerobic Blood Culture - Final No growth in 5 days. 04/13/24 15:08 Blood - Blood Anaerobic Blood Culture - Final No growth in 5 days. 04/13/24 14:50 Blood - Blood Aerobic Blood Culture - Final No growth in 5 days. 04/13/24 14:50 Blood - Blood Anaerobic Blood Culture - Final No growth in 5 days. Assessment/ Plan: Nephrology No dyspnea No chest pain No acute events overnight Vitals, medications, blood work and imaging reviewed in the chart General: In no apparent distress, Cooperative HEENT: Atraumatic Neck: Supple Respiratory: Normal air movement Cardiovascular: Regular rate/rhythm, Edema Gastrointestinal: Soft and benign, Non-distended Musculoskeletal: No clubbing, No contractures Integumentary: No rashes, No cyanosis, Diabetic ulcer Neurological: Normal speech Laboratory Data (last 24 hrs) 04/13/24 04/13/24 04/13/24 15:08 15:08 15:08 WBC 5.50 Hgb 9.7 L Hct 29.5 L Plt Count 252 PT 11.8 INR 1.06 Sodium 136 Potassium 4.4 BUN 46 H Creatinine 9.76 H Glucose 197 H Magnesium 2.1 Total Bilirubin 0.4 AST 11 L ALT < 14 L Alkaline Phosphatase 199 H Imagings Data: [id number] EXAM: Foot Left 3 View HISTORY: PAIN COMPARISON: 06/02/2021 FINDINGS: Bony destruction at the level of the fifth metatarsal involving the metatarsal head and proximal phalanx concerning for septic joint and bony destruction. Peripheral vascular calcifications. No acute fracture. IMPRESSION: Destructive changes across the fifth MTP joint concerning for septic arthritis/osteomyelitis [id number] EXAMINATION: US LOWER EXTREMITY VENOUS DOPPLER BILATERAL CLINICAL INDICATION: Male, 48 years old.Pain;Swelling TECHNIQUE: Complete bilateral duplex sonography of the lower extremity veins was performed. The examination included compression for vein patency, color Doppler imaging and flow augmentation in response to distal compression of the distal external iliac, common femoral, femoral, popliteal, peroneal, tibial and great saphenous veins. [id number]. COMPARISON: No prior exams FINDINGS: Duplex sonography imaging demonstrates all deep examined to be fully compressible with spontaneous, phasic and augmented flow bilaterally. IMPRESSION: No evidence of deep venous thrombosis seen in either lower extremity. [id number] EXAMINATION: ONE VIEW CHEST XR CLINICAL INDICATION: Male, 48 years old.COUGH TECHNIQUE: 1 View, AP supine, X-ray of the chest was performed. [id number]. COMPARISON: 07/14/2022 FINDINGS: Lungs and pleura: Increase coarsening of pulmonary interstitium. No effusion. Heart and mediastinum: Cardiomegaly Osseous structures: No acute abnormality. Tubes/lines: None Other: None. IMPRESSION: Nonspecific increased prominence of the pulmonary interstitium could reflect developing edema. Conclusions/Impression: ESRD on HD -HD TIW HTN with CKD/ CHF -Continue Amlodipine -Continue Losartan and Metoprolol BID -Continue Doxazosin Peripheral Edema Diastolic CHF suspected -HD with UF -Echocardiogram reviewed DM II with CKD & Polyneuropathy -RISS DM II with foot ulcer Left toe osteomyelitis -Continue Abx -Wound care as ordered -Surgery is following Anemia in CKD -Retacrit qHD CKD MBD -Continue Renvela and Calcitriol Hospitalist note reviewed
[2024-04-22] MEDS: HYDRALAZINE HCL 25 MG TABLET PO SCH (08:38)
[2024-04-22 12:07] LABS: Anion Gap 10.2 mEq/L (5.0-15.0); Potassium 5.2 mEq/L (3.5-5.1)
[2024-04-22] MEDS: COLLAGENASE 30 GM OINTMENT TOP SCH (13:06)
--- NOTE | 2024-04-22 18:37 | P.PN ---
Date of Service: 04/22/24 Subjective: Awake, using his knee scooter in his room able to function and go into the bathroom independently Evaluating SNF approval, working with therapy, tolerating dialysis ROS: 10 point ROS as noted above, otherwise negative Physical exam GEN: Awake, alert, and oriented x3, NAD HEENT: Normal conjunctiva, sclera anicteric CV: RRR, no edema Pulm: Nonlabored respirations, on room air, clear BBS ABD: Soft on palpation, NT/ND MSK: No joint tenderness Integumentary: Dressing in place to left foot CDI Neuro: Normal speech, normal affect Vitals reviewed Assessment and plan Osteromylitis of left fifth MTP -Ultrasound lower extremity venous Doppler bilateral reports "No evidence of deep venous thrombosis seen in either lower extremity. " -Foot x-ray reports "Destructive changes across the fifth MTP joint concerning for septic arthritis/osteomyelitis." -consult surgery-plan for operative management today 04/15 was completed with debridement -Continue vancomycin -Plan to continue vancomycin with dialysis for a total of 2 weeks which is being arranged -Limited weightbearing status left lower extremity, PT consultation placed -Working on obtaining a knee scooter/PT eval to determine needs Limited mobility/non weight bearing status LLE -Has difficulty getting around given neuropathy to the right foot, nonweightbearing status to the left foot -Also has a 18 inch step to get to his house in the home not will design for limited mobility -Pending further evaluation with PT, Knee scooter obtained -May need SNF at discharge, knee scooter arrived/further recs from PT Hypertensive Emergency -Continue home medications -hydralazine PRN Diabetes mellitus-NIDDM -Accu-Chek with sliding scale insulin ESRD Anemia of chronic disease Fluid volume overload -Dialysis TTS -Nephrology consulted History of hypertension -Continue home medication DVT ppx heparin Full code LOS 2-3 days Dispo HH with SN and PT, evaluating SNF options
[2024-04-22] MEDS: INSULIN GLARGINE 100 UNIT/ML SQ SCH (20:53)
--- NOTE | 2024-04-22 21:11 | P.PN ---
Date of Service: 04/22/24 Vital Signs Temp Pulse Resp BP Pulse Ox 97.4 F 70 19 132/63 98 04/22/24 20:00 04/22/24 20:55 04/22/24 20:00 04/22/24 20:55 04/22/24 20:00 Medications Acetaminophen (Acetaminophen 500 Mg Tab) 500 mg PO Q6H PRN PRN Reason: Temp > 100F or mild pain Hydrocodone Bitart/Acetaminophen (Hydrocodone/Apap 5/325 Mg Tab) 1 tab PO Q6H PRN PRN Reason: Pain scale 5-7 (Moderate) Amlodipine Besylate (Amlodipine 10 Mg Tab) 10 mg PO DAILY [facility] Last Admin: 04/22/24 08:13 Dose: 10 mg Aspirin (Aspirin Ec 81 Mg Tab) 81 mg PO DAILY [facility] Last Admin: 04/22/24 08:13 Dose: 81 mg Atorvastatin Calcium (Atorvastatin 40 Mg Tab) 40 mg PO BEDTIME [facility] Last Admin: 04/22/24 20:54 Dose: 40 mg Calcitriol (Calcitrol 0.25 Mcg Cap) 0.5 mcg PO DAILY [facility] Last Admin: 04/22/24 08:13 Dose: 0.5 mcg Collagenase (Collagenase 30 Gm Ointment) 1 appl TOP DAILY [facility] Last Admin: 04/22/24 13:06 Dose: 1 appl Docusate Sodium (Docusate Na 100 Mg Cap) 100 mg PO BID [facility] Last Admin: 04/22/24 20:53 Dose: Not Given Doxazosin Mesylate (Doxazosin 4 Mg Tab) 8 mg PO BID [facility] Last Admin: 04/22/24 20:55 Dose: 8 mg Glucagon (Glucagon 1 Mg/Vial) 1 mg IM 1X PRN PRN Reason: HYPOGLYCEMIA Heparin Sodium (Porcine) (Heparin 5000 Unit/Ml 1 Ml Vial) 5,000 unit SQ Q8HR [facility] Last Admin: 04/22/24 17:16 Dose: 5,000 unit Hydralazine HCl (Hydralazine Hcl 20 Mg/Ml Vial) 10 mg IV Q4HP PRN PRN Reason: FOR SBP>160 OR DBP>100 [facility] Last Admin: 04/22/24 05:38 Dose: 10 mg Hydralazine HCl (Hydralazine Hcl 25 Mg Tablet) 25 mg PO BID [facility] Last Admin: 04/22/24 20:53 Dose: 25 mg Dextrose (Dextrose 10% Water Iv Soln.) 125 mls @ 0 mls/hr IV PRN PRN; Protocol PRN Reason: HYPOGLYCEMIA Vancomycin HCl 1 gm/ Sodium (Chloride) 250 mls @ 250 mls/hr IVPB AFTER EACH DIALYSIS [facility]; Protocol Last Admin: 04/21/24 15:15 Dose: 250 mls Insulin Glargine (Insulin Glargine 100 Unit/Ml) 10 unit SQ BEDTIME [facility] Last Admin: 04/22/24 20:53 Dose: 10 unit Insulin Human Regular (Insulin Regular (Human) 100 Unit/Ml) 0 unit SQ ACHS [facility]; Protocol Last Admin: 04/22/24 20:54 Dose: 4 unit Lactobacillus Acidoph/Bulgaricus (Lactobacillus/Acidophilus Tab) 1 tab PO BID [facility] Last Admin: 04/22/24 20:53 Dose: 1 tab Losartan Potassium (Losartan Potassium 50 Mg Tablet) 50 mg PO BID [facility] Last Admin: 04/22/24 20:54 Dose: 50 mg Metoprolol Tartrate (Metoprolol Tar 50 Mg Tab) 50 mg PO BID [facility] Last Admin: 04/22/24 20:54 Dose: 50 mg Sevelamer Carbonate (Sevelamer Carbonate 800 Mg Tablet) 800 mg PO TIDWM [facility] Last Admin: 04/22/24 17:16 Dose: 800 mg Microbiology Results 04/13/24 15:08 Blood - Blood Aerobic Blood Culture - Final No growth in 5 days. 04/13/24 15:08 Blood - Blood Anaerobic Blood Culture - Final No growth in 5 days. 04/13/24 14:50 Blood - Blood Aerobic Blood Culture - Final No growth in 5 days. 04/13/24 14:50 Blood - Blood Anaerobic Blood Culture - Final No growth in 5 days. Assessment/ Plan: Nephrology No dyspnea No chest pain No acute events overnight Vitals, medications, blood work and imaging reviewed in the chart General: In no apparent distress, Cooperative HEENT: Atraumatic Neck: Supple Respiratory: Normal air movement Cardiovascular: Regular rate/rhythm, Edema Gastrointestinal: Soft and benign, Non-distended Musculoskeletal: No clubbing, No contractures Integumentary: No rashes, No cyanosis, Diabetic ulcer Neurological: Normal speech Laboratory Data (last 24 hrs) 04/13/24 04/13/24 04/13/24 15:08 15:08 15:08 WBC 5.50 Hgb 9.7 L Hct 29.5 L Plt Count 252 PT 11.8 INR 1.06 Sodium 136 Potassium 4.4 BUN 46 H Creatinine 9.76 H Glucose 197 H Magnesium 2.1 Total Bilirubin 0.4 AST 11 L ALT < 14 L Alkaline Phosphatase 199 H Imagings Data: [id number] EXAM: Foot Left 3 View HISTORY: PAIN COMPARISON: 06/02/2021 FINDINGS: Bony destruction at the level of the fifth metatarsal involving the metatarsal head and proximal phalanx concerning for septic joint and bony destruction. Peripheral vascular calcifications. No acute fracture. IMPRESSION: Destructive changes across the fifth MTP joint concerning for septic arthritis/osteomyelitis [id number] EXAMINATION: US LOWER EXTREMITY VENOUS DOPPLER BILATERAL CLINICAL INDICATION: Male, 48 years old.Pain;Swelling TECHNIQUE: Complete bilateral duplex sonography of the lower extremity veins was performed. The examination included compression for vein patency, color Doppler imaging and flow augmentation in response to distal compression of the distal external iliac, common femoral, femoral, popliteal, peroneal, tibial and great saphenous veins. [id number]. COMPARISON: No prior exams FINDINGS: Duplex sonography imaging demonstrates all deep examined to be fully compressible with spontaneous, phasic and augmented flow bilaterally. IMPRESSION: No evidence of deep venous thrombosis seen in either lower extremity. [id number] EXAMINATION: ONE VIEW CHEST XR CLINICAL INDICATION: Male, 48 years old.COUGH TECHNIQUE: 1 View, AP supine, X-ray of the chest was performed. [id number]. COMPARISON: 07/14/2022 FINDINGS: Lungs and pleura: Increase coarsening of pulmonary interstitium. No effusion. Heart and mediastinum: Cardiomegaly Osseous structures: No acute abnormality. Tubes/lines: None Other: None. IMPRESSION: Nonspecific increased prominence of the pulmonary interstitium could reflect developing edema. Conclusions/Impression: ESRD on HD -HD TIW HTN with CKD/ CHF -Continue Amlodipine -Continue Losartan and Metoprolol BID -Continue Doxazosin Peripheral Edema Diastolic CHF suspected -HD with UF -Echocardiogram reviewed DM II with CKD & Polyneuropathy -RISS DM II with foot ulcer Left toe osteomyelitis -Continue Abx -Wound care as ordered -Surgery is following Anemia in CKD -Retacrit qHD CKD MBD -Continue Renvela and Calcitriol Hospitalist note reviewed
[2024-04-23 07:00] LABS: Anion Gap 14.3 mEq/L (5.0-15.0); Potassium 5.3 mEq/L (3.5-5.1)
[2024-04-23 09:34] LABS: Absolute Eosinophils 0.1 K/uL (0-0.5); Absolute Lymphocytes (CBC) 1.3 K/uL (0.7-4.9); Absolute Monocytes 0.4 K/uL (0.1-1.3); Absolute Neutrophil 3.7 K/uL (1.8-8.0); Basophils % 0.5 % (0-1.3); Hematocrit 29.9 % (39.6-49.0); Lymphocytes % 23.4 % (15.3-44.8); MCH 28.7 pg (27.0-35.0); MCHC 33.3 g/dL (32.0-36.0); MCV 86.2 fL (80-100); MPV 8.9 fL (7.6-11.3); Monocytes % 7.2 % (3.3-12.3); Neutrophils % 66.9 % (41.7-73.7); Nucleated Red Blood Cells % 0.1 % (0-0); Platelets 200 thou/uL (152-406); RBC Red Blood Cell Count 3.47 M/uL (4.33-5.43); Red Cell Distribution Width 16.2 % (12.1-15.2)
--- NOTE | 2024-04-23 15:54 | CON ---
Date of Consultation: 04/22/2024 History Of Present Illness: The patient is a 48-year-old male with significant past medical history of diabetes mellitus, end-stage renal disease, anemia of chronic disease, enlarged heart, diabetic ne uropathy, coming in with osteomyelitis of left fifth MTP. The patient denies any headache, nausea, v omiting, chest pain, abdominal pain, or constipation. His wound cultures are growing Strep agalactia e group B from 04/15. Blood cultures are negative from 04/13. Past Medical History: As per HPI. Social History: Nonsmoker. Nondrinker. Family History: Noncontributory. Medications: Vancomycin. See MARs for other medications. Allergies: NO KNOWN DRUG ALLERGIES. Review of Systems: A 10-point review was performed. Physical Examination: General: This is a 48-year-old male, lying in bed, not in any acute cardiopulmonary distress. Vital Signs: Temperature 97, pulse 82, respirations 100, blood pressure 150/80. HEENT: Unremarkable. Neck: Supple. Lungs: Basal crackles. Heart: S1, S2. Regular. Abdomen: Soft, nontender. Bowel sounds present. Extremities: Trace edema. Left foot with erythematous changes and ulceration noted. Laboratory Data: Shows WBC 5.8, hemoglobin 9.4, platelets are 212. Chemistry shows BUN of 68, creat inine 11. Micro data: Wound culture with Strep agalactiae group B. Assessment And Plan: 48-year-old male with multiple medical problems including end-stage renal disea se, diabetes mellitus, diabetic neuropathy, and diabetic foot ulcer with the left fifth metatarsal MT P osteomyelitis. We will recommend to continue antibiotic for 42 days. Can be switched to vancomyci n on discharge with dialysis. We will follow the patient closely. Thank you, Dr. Weaver, for consult. NF/MODL Voice ID: [id number] Report ID: [id number]
--- NOTE | 2024-04-23 17:08 | PN ---
Date of Progress Note: 04/23/2024 Subjective: The patient is lying in bed. Denies any headache, nausea, vomiting, chest pain, abdomin al pain, constipation, or diarrhea. Objective: Vital Signs: Reviewed. Lungs: Basal crackles. Heart: S1, S2. Regular. Abdomen: Soft, nontender. Bowel sounds present. Extremities: Trace edema. Laboratory Data: Reviewed. Assessment And Plan: Osteomyelitis of foot involving left fifth MTP, end-stage renal disease, diabet es mellitus, anemia of chronic disease. Continue antibiotic. The patient is currently on Unasyn. W e will follow the patient as needed. Wound cultures are growing Streptococcus agalactiae. We will f ollow this case as needed. NF/MODL Voice ID: [id number] Report ID: [id number]
[2024-04-23] MEDS: AMPICILLIN/SULBACT 3 GM in NA CHLORIDE 0.9% 100 ML IV SCH (17:53)
--- NOTE | 2024-04-23 19:23 | P.PN ---
Date of Service: 04/23/24 Subjective: Laying in bed, conversing well No new complaints ROS: 10 point ROS as noted above, otherwise negative Physical exam GEN: AAO x3, NAD HEENT: Normal conjunctiva, sclera anicteric CV: RRR, no edema Pulm: Nonlabored respirations, clear BBS, on room air, ABD: Soft on palpation, NT/ND MSK: No joint tenderness Integumentary: Dressing in place to left foot CDI Neuro: Normal speech, normal affect Vitals reviewed Assessment and plan Osteromylitis of left fifth MTP -Ultrasound lower extremity venous Doppler bilateral reports "No evidence of deep venous thrombosis seen in either lower extremity. " -Foot x-ray reports "Destructive changes across the fifth MTP joint concerning f or septic arthritis/osteomyelitis." -consult surgery-plan for operative management today 04/15 was completed with debridement -Continue vancomycin -Plan to continue vancomycin with dialysis for a total of 2 weeks which is being arranged -Limited weightbearing status left lower extremity, PT consultation placed -Working on obtaining a knee scooter/PT visiting Limited mobility/non weight bearing status LLE -Has difficulty getting around given neuropathy to the right foot, nonweightbearing status to the left foot -Also has a 18 inch step to get to his house in the home not will design for limited mobility -Pending further evaluation with PT, Knee scooter obtained -May need SNF at discharge, knee scooter arrived/further recs from PT Hypertensive Emergency -Continue home medications -hydralazine PRN Diabetes mellitus-NIDDM -Accu-Chek with sliding scale insulin ESRD Anemia of chronic disease Fluid volume overload -Dialysis TTS -Nephrology consulted -3 L removed today History of hypertension -Continue home medication DVT ppx heparin Full code LOS 2-3 days [facility]po [facility] approved, Auth submitted
--- NOTE | 2024-04-23 21:11 | P.PN ---
Date of Service: 04/23/24 Vital Signs Temp Pulse Resp BP Pulse Ox 97.7 F 77 20 165/74 H 99 04/23/24 16:00 04/23/24 20:25 04/23/24 16:00 04/23/24 20:25 04/23/24 16:00 Medications Acetaminophen (Acetaminophen 500 Mg Tab) 500 mg PO Q6H PRN PRN Reason: Temp > 100F or mild pain Hydrocodone Bitart/Acetaminophen (Hydrocodone/Apap 5/325 Mg Tab) 1 tab PO Q6H PRN PRN Reason: Pain scale 5-7 (Moderate) Amlodipine Besylate (Amlodipine 10 Mg Tab) 10 mg PO DAILY [facility] Last Admin: 04/23/24 09:00 Dose: Not Given Aspirin (Aspirin Ec 81 Mg Tab) 81 mg PO DAILY [facility] Last Admin: 04/23/24 09:15 Dose: 81 mg Atorvastatin Calcium (Atorvastatin 40 Mg Tab) 40 mg PO BEDTIME [facility] Last Admin: 04/23/24 20:25 Dose: 40 mg Calcitriol (Calcitrol 0.25 Mcg Cap) 0.5 mcg PO DAILY [facility] Last Admin: 04/23/24 09:15 Dose: 0.5 mcg Collagenase (Collagenase 30 Gm Ointment) 1 appl TOP DAILY [facility] Last Admin: 04/23/24 09:00 Dose: 1 appl Docusate Sodium (Docusate Na 100 Mg Cap) 100 mg PO BID [facility] Last Admin: 04/23/24 20:24 Dose: Not Given Doxazosin Mesylate (Doxazosin 4 Mg Tab) 8 mg PO BID [facility] Last Admin: 04/23/24 20:25 Dose: 8 mg Glucagon (Glucagon 1 Mg/Vial) 1 mg IM 1X PRN PRN Reason: HYPOGLYCEMIA Heparin Sodium (Porcine) (Heparin 5000 Unit/Ml 1 Ml Vial) 5,000 unit SQ Q8HR [facility] Last Admin: 04/23/24 17:53 Dose: 5,000 unit Heparin Sodium (Porcine) (Heparin 1,000 Unit/Ml Vial) 2,000 unit IV EVERY HD PRN PRN Reason: Prevent HD System Clotting Last Admin: 04/23/24 10:57 Dose: 2,000 unit Hydralazine HCl (Hydralazine Hcl 20 Mg/Ml Vial) 10 mg IV Q4HP PRN PRN Reason: FOR SBP>160 OR DBP>100 [facility] Last Admin: 04/22/24 05:38 Dose: 10 mg Hydralazine HCl (Hydralazine Hcl 25 Mg Tablet) 25 mg PO BID [facility] Last Admin: 04/23/24 20:24 Dose: 25 mg Dextrose (Dextrose 10% Water Iv Soln.) 125 mls @ 0 mls/hr IV PRN PRN; Protocol PRN Reason: HYPOGLYCEMIA Ampicillin Sodium/Sulbactam (Sodium 3 gm/ Sodium Chloride) 100 mls @ 200 mls/hr IV Q24H [facility] Last Admin: 04/23/24 17:53 Dose: 100 mls Insulin Glargine (Insulin Glargine 100 Unit/Ml) 10 unit SQ BEDTIME [facility] Last Admin: 04/23/24 20:25 Dose: 10 unit Insulin Human Regular (Insulin Regular (Human) 100 Unit/Ml) 0 unit SQ ACHS [facility]; Protocol Last Admin: 04/23/24 20:25 Dose: 4 unit Lactobacillus Acidoph/Bulgaricus (Lactobacillus/Acidophilus Tab) 1 tab PO BID [facility] Last Admin: 04/23/24 20:24 Dose: 1 tab Losartan Potassium (Losartan Potassium 50 Mg Tablet) 50 mg PO BID [facility] Last Admin: 04/23/24 20:25 Dose: 50 mg Metoprolol Tartrate (Metoprolol Tar 50 Mg Tab) 50 mg PO BID [facility] Last Admin: 04/23/24 20:24 Dose: 50 mg Sevelamer Carbonate (Sevelamer Carbonate 800 Mg Tablet) 800 mg PO TIDWM [facility] Last Admin: 04/23/24 17:53 Dose: 800 mg Microbiology Results 04/13/24 15:08 Blood - Blood Aerobic Blood Culture - Final No growth in 5 days. 04/13/24 15:08 Blood - Blood Anaerobic Blood Culture - Final No growth in 5 days. 04/13/24 14:50 Blood - Blood Aerobic Blood Culture - Final No growth in 5 days. 04/13/24 14:50 Blood - Blood Anaerobic Blood Culture - Final No growth in 5 days. Assessment/ Plan: Nephrology No dyspnea No chest pain No acute events overnight Vitals, medications, blood work and imaging reviewed in the chart General: In no apparent distress, Cooperative HEENT: Atraumatic Neck: Supple Respiratory: Normal air movement Cardiovascular: Regular rate/rhythm, Edema Gastrointestinal: Soft and benign, Non-distended Musculoskeletal: No clubbing, No contractures Integumentary: No rashes, No cyanosis, Diabetic ulcer Neurological: Normal speech Laboratory Data (last 24 hrs) 04/13/24 04/13/24 04/13/24 15:08 15:08 15:08 WBC 5.50 Hgb 9.7 L Hct 29.5 L Plt Count 252 PT 11.8 INR 1.06 Sodium 136 Potassium 4.4 BUN 46 H Creatinine 9.76 H Glucose 197 H Magnesium 2.1 Total Bilirubin 0.4 AST 11 L ALT < 14 L Alkaline Phosphatase 199 H Imagings Data: [id number] EXAM: Foot Left 3 View HISTORY: PAIN COMPARISON: 06/02/2021 FINDINGS: Bony destruction at the level of the fifth metatarsal involving the metatarsal head and proximal phalanx concerning for septic joint and bony destruction. Peripheral vascular calcifications. No acute fracture. IMPRESSION: Destructive changes across the fifth MTP joint concerning for septic arthritis/osteomyelitis [address] EXAMINATION: US LOWER EXTREMITY VENOUS DOPPLER BILATERAL CLINICAL INDICATION: Male, 48 years old.Pain;Swelling TECHNIQUE: Complete bilateral duplex sonography of the lower extremity veins was performed. The examination included compression for vein patency, color Doppler imaging and flow augmentation in response to distal compression of the distal external iliac, common femoral, femoral, popliteal, peroneal, tibial and great saphenous veins. [id number]. COMPARISON: No prior exams FINDINGS: Duplex sonography imaging demonstrates all deep examined to be fully compressi ble with spontaneous, phasic and augmented flow bilaterally. IMPRESSION: No evidence of deep venous thrombosis seen in either lower extremity. [address] EXAMINATION: ONE VIEW CHEST XR CLINICAL INDICATION: Male, 48 years old.COUGH TECHNIQUE: 1 View, AP supine, X-ray of the chest was performed. [id number]. COMPARISON: 07/14/2022 FINDINGS: Lungs and pleura: Increase coarsening of pulmonary interstitium. No effusion. Heart and mediastinum: Cardiomegaly Osseous structures: No acute abnormality. Tubes/lines: None Other: None. IMPRESSION: Nonspecific increased prominence of the pulmonary interstitium could reflect developing edema. Conclusions/Impression: ESRD on HD -HD TIW HTN with CKD/ CHF -Continue Amlodipine -Continue Losartan and Metoprolol BID -Continue Doxazosin Peripheral Edema Diastolic CHF suspected -HD with UF -Echocardiogram reviewed DM II with CKD & Polyneuropathy -RISS DM II with foot ulcer Left toe osteomyelitis -Continue Abx -Wound care as ordered -Surgery is following Anemia in CKD -Retacrit qHD CKD MBD -Continue Renvela and Calcitriol Hospitalist note reviewed
[2024-04-23 23:13] VITALS: O2SAT 99
[2024-04-24 12:21] VITALS: BP 148/78; TEMP 97.3
[2024-04-24 12:27] LABS: Absolute Eosinophils 0.1 K/uL (0-0.5); Absolute Lymphocytes (CBC) 1.6 K/uL (0.7-4.9); Absolute Monocytes 0.4 K/uL (0.1-1.3); Absolute Neutrophil 3.6 K/uL (1.8-8.0); Basophils % 0.5 % (0-1.3); Eosinophils % 1.4 % (0-4.4); Hematocrit 31.9 % (39.6-49.0); Hemoglobin 10.5 g/dL (13.6-17.9); Lymphocytes % 27.7 % (15.3-44.8); MCH 28.5 pg (27.0-35.0); MCHC 32.9 g/dL (32.0-36.0); MCV 86.7 fL (80-100); MPV 8.1 fL (7.6-11.3); Monocytes % 6.5 % (3.3-12.3); Neutrophils % 63.9 % (41.7-73.7); Platelets 202 thou/uL (152-406); RBC Red Blood Cell Count 3.68 M/uL (4.33-5.43); Red Cell Distribution Width 16.3 % (12.1-15.2)
--- NOTE | 2024-04-24 12:36 | P.DS ---
Admission Date: 04/13/24 Discharge Date: 04/24/24 Disposition: TRANSFER TO SNF - REHAB Discharge Condition: GOOD Reason for Admission: Left diabetic foot ulcer Brief History of Present Illness: Diagnosis Osteromylitis of left fifth MTP Limited mobility/non weight bearing status LLE Hypertensive Emergency Diabetes mellitus-NIDDM ESRD Anemia of chronic disease Fluid volume overload History of hypertension HPI 04/13/24 Nikita Bartlett is a 48-year-old male with past medical history of anemia, enlarged heart, diabetes mellitusNIDDM, from neuropathy, osteomyelitis, hypertension, and gastric ulcer, ESRD, anemia of chronic disease dialysis TTS who presents to the ED with chief complaint of left foot swelling needing a wound checkup. He reports being afraid he had a blood clot. On examination, edema bilaterally, 1+ peripheral pulses, wound to plantar left foot, no complaints of pain. He is in no distress, denies fever, chills, nausea, vomitting, and chest pain. Evaluation significant for BNP 100,619, BUN/creatinine 46/9.76, GFR 6, troponin 67.3, CRP 65.9, serum glucose 197. Ultrasound lower extremity venous Doppler bilateral reports "No evidence of deep venous thrombosis seen in either lower extremity. " Foot x-ray reports "Destructive changes across the fifth MTP joint concerning for septic arthritis/osteomyelitis." Chest xray reports "Nonspecific increased prominence of the pulmonary in terstitium could reflect developing edema." Nikita will be admitted to hospitalist service for further evaluation, Dr. Brizuela consulted. Hospital Course: Nikita Bartlett is a pleasant 48 year old male with a past medical history significant for anemia, enlarged heart, diabetes mellitusNIDDM, from neuropathy, osteomyelitis, hypertension, and gastric ulcer, ESRD, anemia of chronic disease dialysis TTS who was admitted to the [facility] on 04/13/2024 for osteomyelitis of left fifth MTP. Nikita Bartlett presented to the ED with chief complaint of left foot swelling and wound check up. Xray reports "Destructive changes across the fifth MTP joint concerning for septic arthritis/osteomyelitis" and Ultrasound left lower extremity negative for DVT. Dr. Brizuela consulted and debridement of left foot performed on 04/15/24. Blood cultures remained negative, wound culture grew streptococcus agalactiae grp B sensitive to vancomycin. Antibiotics adjusted to vancomycin and augmentin. Vancomyc will continue with dialysis. He has tolerated IV antibiotics and dialysis remained on schedule. He has received a knee scooter and has worked with physically therapy for training. He is tolerating PO diet and hemodynamically stable for discharge. On 04/24/2024, Nikita Bartlett was seen on morning rounds and deemed medically stable for discharge [facility]. Nikita Bartlett was discharged with instructions to schedule follow-up appointments with Dr. Brizuela, Dr. Garibay, and PCP. Nikita Bartlett was provided prescriptions for Lacintex, Renvela, Lopressor, Augmentin. Physical exam GEN: Alert and oriented x3, NAD HEENT: Normal conjunctiva, sclera anicteric CV: Regular rate and rhythm, no edema, S1-S2 present Pulm: Nonlabored respirations, clear BBS, on room air, ABD: Soft and benign on palpation, NT/ND, normal active bowel sounds present MSK: No joint tenderness Integumentary: Dressing in place to left foot CDI Neuro: Normal speech, normal affect Vital Signs/Physical Exam: Temp Pulse Resp BP Pulse Ox 97.3 F 67 16 148/78 H 97 04/24/24 12:00 04/24/24 12:00 04/24/24 12:00 04/24/24 12:00 04/24/24 12:00 Laboratory Data at Discharge: WBC 5.70 thou/uL (4.3-10.9) 04/24/24 12:13 Hgb 10.5 g/dL (13.6-17.9) L 04/24/24 12:13 Hct 31.9 % (39.6-49.0) L 04/24/24 12:13 Plt Count 202 thou/uL (152-406) 04/24/24 12:13 PT 11.8 SECONDS (9.4-12.5) 04/13/24 15:08 INR 1.06 04/13/24 15:08 Sodium 133 mEq/L (136-145) L 04/23/24 05:10 Potassium 5.3 mEq/L (3.5-5.1) H 04/23/24 05:10 BUN 68 mg/dL (7-18) H 04/23/24 05:10 Creatinine 11.00 mg/dL (0.70-1.30) H 04/23/24 05:10 Glucose 216 mg/dL (74-106) H 04/23/24 05:10 Phosphorus Cancelled 04/19/24 05:00 Magnesium Cancelled 04/19/24 05:00 Total Bilirubin 0.4 mg/dL (0.2-1.0) 04/13/24 15:08 AST 11 U/L (15-37) L 04/13/24 15:08 ALT < 14 U/L (16-61) L 04/13/24 15:08 Alkaline Phosphatase 199 U/L (45-117) H 04/13/24 15:08 Triglycerides 223 mg/dL (<150) H 04/13/24 18:02 Cholesterol 161 mg/dL (<200) 04/13/24 18:02 HDL Cholesterol 31 mg/dL (40-60) L 04/13/24 18:02 Cholesterol/HDL Ratio 5.19 04/13/24 18:02 Home Medications: Amlodipine [Norvasc*] 10 mg PO DAILY 11/24/19 Doxazosin [Cardura*] 8 mg PO BID 06/21/22 Atorvastatin Calcium [Lipitor] 40 mg PO BEDTIME tab 04/22/24 Calcitrol [Rocaltrol*] 0.5 mcg PO DAILY cap 04/22/24 Collagenase [Santyl Ointment*] 1 appl TOP DAILY tube 04/22/24 Docusate [Colace Cap*] 100 mg PO BID cap 04/22/24 Hydralazine [Apresoline*] 25 mg PO BID tab 04/22/24 Insulin Regular, Human [Novolin R] See Protocol SQ ACHS ml 04/22/24 Losartan Potassium [Cozaar*] 50 mg PO BID 04/22/24 Metoprolol Tartrate [Lopressor*] 50 mg PO BID #60 tab 04/22/24 Sevelamer Carbonate [Renvela*] 800 mg PO TIDWM #90 tab 04/22/24 Acidophilus/Bulgaricus [Lactinex Packet] 1 each PO DAILY 7 Days #7 packet 04/24/24 Amoxicillin/Potassium Clav [Augmentin 500-125 Tablet] 1 each PO TID 7 Days #21 tab 04/24/24 New Medications: Amoxicillin/Potassium Clav [Augmentin 500-125 Tablet] 1 each PO TID 7 Days #21 tab Acidophilus/Bulgaricus [Lactinex Packet] 1 each PO DAILY 7 Days #7 packet Metoprolol Tartrate [Lopressor*] 50 mg PO BID #60 tab Sevelamer Carbonate [Renvela*] 800 mg PO TIDWM #90 tab Physician Discharge Instructions: 1. Please call and schedule a follow-up appointment with your PCP in 3-5 days - Please follow-up with your PCP for medication refills/adjustments 2. Please call and schedule a follow-up appointment with Dr. Brizuela in one week -Wound care 3. Please call and schedule a follow-up appointment with Dr. Garibay in one week -Kidney doctor 4. Continue renal diet 5. activity restrictions fall risk 6. Return to the ED if symptoms worsen New medications Augmentin 500 mg p.o. 3 times daily x 7 days Lopressor 50 mg twice daily Renvela 800 mg 3 times daily Lacintex 1 packet daily x 7 days Wound care instructions Daily dressing changes: remove all dressings, irrigate with sterile saline, lay in gauze damp with vashe damp to dry, then wrap wiht kerlix, marline, elevate, non- weight bearing Diet: Renal Activity: Fall precautions Followup: Alex Garibay DO [ACTIVE - CAN ADMIT] - 1 Week Junior Brizuela MD [ACTIVE - CAN ADMIT] - 1 Week Todd Davis DO [Primary Care Provider] - 1 Week
[2024-04-24 12:40] LABS: Anion Gap 11.9 mEq/L (5.0-15.0); Potassium 4.9 mEq/L (3.5-5.1)
--- NOTE | 2024-04-24 21:38 | P.PN ---
Date of Service: 04/24/24 Vital Signs Temp Pulse Resp BP Pulse Ox 97.3 F 67 16 148/78 H 97 04/24/24 12:00 04/24/24 12:00 04/24/24 12:00 04/24/24 12:00 04/24/24 12:00 Microbiology Results 04/13/24 15:08 Blood - Blood Aerobic Blood Culture - Final No growth in 5 days. 04/13/24 15:08 Blood - Blood Anaerobic Blood Culture - Final No growth in 5 days. 04/13/24 14:50 Blood - Blood Aerobic Blood Culture - Final No growth in 5 days. 04/13/24 14:50 Blood - Blood Anaerobic Blood Culture - Final No growth in 5 days. Assessment/ Plan: Nephrology No dyspnea No chest pain No acute events overnight Vitals, medications, blood work and imaging reviewed in the chart General: In no apparent distress, Cooperative HEENT: Atraumatic Neck: Supple Respiratory: Normal air movement Cardiovascular: Regular rate/rhythm, Edema Gastrointestinal: Soft and benign, Non-distended Musculoskeletal: No clubbing, No contractures Integumentary: No rashes, No cyanosis, Diabetic ulcer Neurological: Normal speech Laboratory Data (last 24 hrs) 04/13/24 04/13/24 04/13/24 15:08 15:08 15:08 WBC 5.50 Hgb 9.7 L Hct 29.5 L Plt Count 252 PT 11.8 INR 1.06 Sodium 136 Potassium 4.4 BUN 46 H Creatinine 9.76 H Glucose 197 H Magnesium 2.1 Total Bilirubin 0.4 AST 11 L ALT < 14 L Alkaline Phosphatase 199 H Imagings Data: [id number] EXAM: Foot Left 3 View HISTORY: PAIN COMPARISON: 06/02/2021 FINDINGS: Bony destruction at the level of the fifth metatarsal involving the metatarsal head and proximal phalanx concerning for septic joint and bony destruction. Peripheral vascular calcifications. No acute fracture. IMPRESSION: Destructive changes across the fifth MTP joint concerning for septic arthritis/osteomyelitis [id number] EXAMINATION: US LOWER EXTREMITY VENOUS DOPPLER BILATERAL CLINICAL INDICATION: Male, 48 years old.Pain;Swelling TECHNIQUE: Complete bilateral duplex sonography of the lower extremity veins was performed. The examination included compression for vein patency, color Doppler imaging and flow augmentation in response to distal compression of the distal external iliac, common femoral, femoral, popliteal, peroneal, tibial and great saphenous veins. [id number]. COMPARISON: No prior exams FINDINGS: Duplex sonography imaging demonstrates all deep examined to be fully compressible with spontaneous, phasic and augmented flow bilaterally. IMPRESSION: No evidence of deep venous thrombosis seen in either lower extremity. [id number] EXAMINATION: ONE VIEW CHEST XR CLINICAL INDICATION: Male, 48 years old.COUGH TECHNIQUE: 1 View, AP supine, X-ray of the chest was performed. [id number]. COMPARISON: 07/14/2022 FINDINGS: Lungs and pleura: Increase coarsening of pulmonary interstitium. No effusion. Heart and mediastinum: Cardiomegaly Osseous structures: No acute abnormality. Tubes/lines: None Other: None. IMPRESSION: Nonspecific increased prominence of the pulmonary interstitium could reflect developing edema. Conclusions/Impression: ESRD on HD -HD TIW HTN with CKD/ CHF -Continue Amlodipine -Continue Losartan and Metoprolol BID -Continue Doxazosin Peripheral Edema Diastolic CHF suspected -HD with UF -Echocardiogram reviewed DM II with CKD & Polyneuropathy -RISS DM II with foot ulcer Left toe osteomyelitis -Continue Abx -Wound care as ordered -Surgery is following Anemia in CKD -Retacrit qHD CKD MBD -Continue Renvela and Calcitriol Hospitalist note reviewed Case reviewed with Dr. Weaver
[2024-04-25] MEDS ORDERED: VANCOMYCIN 1 GM in NA CHLORIDE 0.9% 250 ML IVPB SCH (18:00)
== END 2024-04-24 16:15 | DRG 623 ==
LOC: ER 12:44 → ERHOLD 15:35 → 4TH 16:16
PROVIDERS: ADMIT Nurse Practitioner; ATTEND Internal Medicine
PROC: 5A1D70Z Performance of Urinary Filtration, Intermittent, Less than 6 Hours Per Day (ICD-10-PCS; principal; 2024-04-13)
PROC: 0JBR0ZZ Excision of Left Foot Subcutaneous Tissue and Fascia, Open Approach (ICD-10-PCS; 2024-04-15)
DX: E11.69 Type 2 diabetes mellitus with other specified complication (principal); I13.2 Hypertensive heart and chronic kidney disease with heart failure and with stage 5 chronic kidney disease, or end stage renal disease; L03.116 Cellulitis of left lower limb; M86.172 Other acute osteomyelitis, left ankle and foot; I16.1 Hypertensive emergency; M00.9 Pyogenic arthritis, unspecified; I50.30 Unspecified diastolic (congestive) heart failure; N18.6 End stage renal disease; E11.22 Type 2 diabetes mellitus with diabetic chronic kidney disease; E11.42 Type 2 diabetes mellitus with diabetic polyneuropathy; E11.621 Type 2 diabetes mellitus with foot ulcer; L97.529 Non-pressure chronic ulcer of other part of left foot with unspecified severity; D63.1 Anemia in chronic kidney disease; E87.70 Fluid overload, unspecified; E66.9 Obesity, unspecified; B95.1 Streptococcus, group B, as the cause of diseases classified elsewhere; Z99.2 Dependence on renal dialysis; Z86.16 Personal history of COVID-19; Z79.82 Long term (current) use of aspirin; Z68.35 Body mass index [BMI] 35.0-35.9, adult; Z79.84 Long term (current) use of oral hypoglycemic drugs; Z79.899 Other long term (current) drug therapy; Z87.891 Personal history of nicotine dependence; Z91.158 Patient's noncompliance with renal dialysis for other reason
CPT/HCPCS: 36415; 71045; 80048; 80061; 80076; 80202; 82947; 83036; 83605; 83735; 83880; 84100; 84484; 85025; 85610; 86140; 86706; 87040; 87070; 87075; 87077; 87186; 87205; 87340; 88304; 88305; 88311; 90935; 93005; 93306; 93970; 96365; 96366; 96367; 96375; 97116; 97161; 97530; 99285; J0295; J0360; J0692; J1644; J2250; J2543; J2704; J3010; J3590; J7040; J7050

== ENCOUNTER 2025-02-14 05:14 | Emergency (ER) | payer BC ==
[2025-02-14] MEDS ORDERED: HYDRALAZINE HCL 20 MG/ML VIAL ONE (05:24)
[2025-02-14 05:52] LABS: Absolute Lymphocytes (CBC) 1.1 K/uL (0.7-4.9); Hematocrit 36.6 % (39.6-49.0); Hemoglobin 12.7 g/dL (13.6-17.9); MCH 28.2 pg (27.0-35.0); MCHC 34.7 g/dL (32.0-36.0); MCV 81.3 fL (80-100); MPV 7.1 fL (7.6-11.3); Nucleated RBC Absolute Count 0.0 (0-0); Nucleated Red Blood Cells % 0.3 % (0-0); RBC Red Blood Cell Count 4.50 M/uL (4.33-5.43); White Blood Count 5.10 thou/uL (4.3-10.9)
[2025-02-14] MEDS ORDERED: ONDANSETRON 4 MG/2 ML VIAL ONE (05:54)
[2025-02-14 06:06] LABS: Anion Gap 9.7 mEq/L (5.0-15.0); BUN Blood Urea Nitrogen 24.0 mg/dL (7-18); Glucose Level 171.0 mg/dL (74-106); Potassium 3.7 mEq/L (3.5-5.1)
[2025-02-14] MEDS ORDERED: DIPHENHYDRAMINE 50 MG/ML VIAL ONE (06:10)
[2025-02-14] MEDS ORDERED: METOCLOPRAMIDE 10 MG/2mL INJ ONE (06:10)
[2025-02-14] MEDS ORDERED: Nicardipine/NS 25 MG/250 ML KIT IV ONE (06:28)
--- NOTE | 2025-02-14 06:33 | RAD REPORT ---
EXAMINATION: Head Brain Wo Cont CLINICAL INDICATION: Male, 49 years old.HEADACHE TECHNIQUE: Axial CT images from the skull base to the vertex without intravenous contrast. Coronal an d sagittal reformatted images were created from the data set. One or more of the following dose reduction techniques were used: Automated exposure control, adjustment of the mA and/or kV according to patient size, and/or iterative reconstruction. Unless otherwise specified, incidental findings do not require dedicated imaging follow-up. [id number]. COMPARISON: No prior exams FINDINGS: INTRACRANIAL: Small focus of acute intracranial hemorrhage adjacent to the atrium of the right latera l ventricle as seen on image 16, series 201. This measures 7 mm. No acute large vascular territory infarct. No hydrocephalus. No mass effect or midline shift. Mild chronic small vessel ischemic youssef es.Mild cerebral atrophy. VASCULATURE: No visualized abnormalities in the arteries or dural venous sinuses. SCALP/SKULL: No calvarial fracture identified. No acute soft tissue abnormality. SINUSES: The visualized paranasal sinuses are mostly clear. No significant mastoid fluid. IMPRESSION: Small focus of high attenuation adjacent to the atrium of the right lateral ventricle concerning for a small volume of intraparenchymal hemorrhage. The findings were communicated to Dr. Lucero on 02/14/2025 6:25 AM.
--- NOTE | 2025-02-14 06:37 | ER ---
Nurse's Notes [facility] Name: Nikita Bartlett Age: 49 yrs Sex: Male : 1975 Arrival Date: 02/14/2025 Time: 05:14 Bed 5 Private MD: Diagnosis: Intraparenchymal hemorrhage;Headache Presentation: 02/14 05:22 Chief complaint: EMS states: hypertension and headache that started at 0100. Patient cp4 states he took some tylenol for the headache. Has dialysis on Tu, Th, and Sat. Coronavirus screen: Client denies travel out of the [place] in the last 14 days. At this time, the client does not indicate any symptoms associated with coronavirus-19. Ebola Screen: Patient negative for fever greater than or equal to 101.5 degrees Fahrenheit, and additional compatible Ebola Virus Disease symptoms Patient denies exposure to infectious person. Patient denies travel to an Ebola-affected area in the 21 days before illness onset. No symptoms or risks identified at this time. Initial Sepsis Screen: Does the patient meet any 2 criteria? No. Patient's initial sepsis screen is negative. Does the patient have a suspected source of infection? No. Patient's initial sepsis screen is negative. Risk Assessment: Do you want to hurt yourself or someone else? Patient reports no desire to harm self or others. Onset of symptoms was February 14, 2025 at 01:00. 05:22 Method Of Arrival: EMS: [place] [address] 05:22 Acuity: OCTAVIO 3 cp4 Triage Assessment: 05:25 General: Appears in no apparent distress. uncomfortable, Behavior is calm, cooperative, cp4 appropriate for age. Pain: Complains of pain in face Pain does not radiate. Pain currently is 6 out of 10 on a pain scale. Pain began 4 hours ago. EENT: No signs and/or symptoms were reported regarding the EENT system. Neuro: Level of Consciousness is awake, alert, obeys commands, Oriented to person, place, time, situation. Cardiovascular: Patient's skin is warm and dry. Rhythm is sinus rhythm. Respiratory: Airway is patent Respiratory effort is even, unlabored. GI: No signs and/or symptoms were reported involving the gastrointestinal system. : No signs and/or symptoms were reported regarding the genitourinary system. Derm: No signs and/or symptoms reported regarding the dermatologic system. Musculoskeletal: No signs and/or symptoms reported regarding the musculoskeletal system. Historical: - Allergies: 05:25 No Known Allergies; cp4 - PMHx: 05:25 Anemia; Diabetes - NIDDM; Dialysis; Enlarged Heart; Hypertension; osteomyelitis; cp4 - PSHx: 05:25 ulcer repair; cp4 07:16 Left arm dialysis fistula; aa5 - Immunization history:: Adult Immunizations up to date. - Infectious Disease History:: Denies. - Social history:: Smoking status: Patient denies any tobacco usage or history of. Screenin:27 [facility] ED Fall Risk Assessment (Adult) History of falling in the last 3 months, cp4 including since admission No falls in past 3 months (0 pts) Confusion or Disorientation No (0 pts) Intoxicated or Sedated No (0 pts) Impaired Gait No (0 pts) Mobility Assist Device Used Yes (1 pt) Altered Elimination No (0 pt) Score/Fall Risk Level 0 - 2 = Low Risk Oriented to surroundings, Maintained a safe environment, Assessed \T\ reinforced patient's understanding of fall precautions, Hourly rounding (assess needs \T\ fall precautionary measures) done. Abuse screen: Denies threats or abuse. Denies injuries from another. Nutritional screening: No deficits noted. Tuberculosis screening: No symptoms or risk factors identified. Assessment: 05:27 Reassessment: No changes from previously documented assessment. cp4 07:00 General: Appears uncomfortable, Behavior is calm, cooperative. Pain: Complains of pain aa5 in forehead Pain currently is 5 out of 10 on a pain scale. Quality of pain is described as aching, pressure, Is continuous. Neuro: Level of Consciousness is awake, alert, obeys commands, Oriented to person, place, time, situation, Chief Information Security Officer are equal bilaterally Moves all extremities. Speech is normal, Facial symmetry appears normal, Pupils are PERRLA, Reports headache frontal area. Cardiovascular: Heart tones S1 S2 present Edema to nadine lower extremities Rhythm is sinus rhythm Dialysis shunt: in the left arm, with palpable thrill, with auscultated bruit, with no erythema, with no edema, no bleeding noted. Respiratory: Airway is patent Respiratory effort is even, unlabored, Respiratory pattern is regular, symmetrical. GI: Patient currently denies nausea, vomiting. : No signs and/or symptoms were reported regarding the genitourinary system. EENT: No signs and/or symptoms were reported regarding the EENT system. Derm: Skin is pink, warm \T\ dry. Musculoskeletal: Range of motion: intact in all extremities. 07:30 Reassessment: Patient is alert, oriented x 3, equal unlabored respirations, skin aa5 warm/dry/pink. Pain: Complains of pain in forehead Pain currently is 5 out of 10 on a pain scale. Vital Signs: 05:22 BP 207 / 94; Pulse 70; Resp 18; Temp 98; Pulse Ox 99% ; Weight 111.3 kg; Height 5 ft. cp4 11 in. ; Pain 6/10; 05:41 BP 207 / 94; Pulse 99; Resp 20; Pulse Ox 98% on R/A; tb4 06:22 BP 199 / 92; Pulse 77; Resp 18; Pulse Ox 98% ; cp4 06:38 BP 189 / 100; Pulse 85; Resp 18; Pulse Ox 99% ; cp4 06:46 BP 185 / 83; Pulse 81; Resp 18; Pulse Ox 100% ; cp4 07:00 aa5 07:01 BP 158 / 84; Pulse 76; Resp 14 S; Pulse Ox 96% on R/A; aa5 07:15 BP 146 / 81; Pulse 76; Resp 16 S; Pulse Ox 98% on R/A; Pain 5/10; aa5 07:30 BP 140 / 77; Pulse 67; Resp 18 S; Pulse Ox 96% on R/A; aa5 05:22 Body Mass Index 34.22 (111.30 kg, 180.34 cm) cp4 05:22 Pain Scale: Adult cp4 07:15 Pain Scale: Adult aa5 07:00 Systolic BP goal per MD is 140s. aa5 NIH Stroke Scale Scores: 07:00 NIHSS Score: 0 cp4 07:15 NIHSS Score: 0 aa5 07:30 NIHSS Score: 0 aa5 ED Course: 05:16 Patient arrived in ED. gm2 05:19 Nickolas Lucero DO is Attending Physician. ms3 05:22 Ghada Purvis is Primary Nurse. cp4 05:25 Triage completed. cp4 05:25 Arm band placed on right wrist. Patient placed in an exam room, on a stretcher. cp4 05:27 Bed in low position. Call light in reach. Side rails up X 1. cp4 05:27 No provider procedures requiring assistance completed. cp4 05:35 Initial lab(s) drawn, by me, sent to lab. EKG done, by ED staff, reviewed by Nickolas Lucero DO. Inserted saline lock: 20 gauge in right forearm, using aseptic technique. Blood collected. Flushed with 10 mL NS. 06:07 CT Head Brain wo Cont In Process Unspecified. EDMS 06:36 initiated transfer with Ld \\ [facility]. kmf 06:38 Inserted saline lock: 20 gauge in right wrist, using aseptic technique. cp4 06:44 [id number] Anibal called with admin approval Dr. Keyla Barry accepted pt to [facility] [address] [place] [address] Bed [address]9 report number [phone] call [facility] talked to Klaus will be here in 28 minutes. faxed demographic's to [facility] #[phone]. 07:30 Patient transferred, IV remains in place. aa5 Administered Medications: 05:41 Drug: hydrALAZINE IVP 10 mg IVP once Route: IVP; Site: right forearm; tb4 06:07 Follow up: Response: No adverse reaction cp4 06:06 Drug: Ondansetron IVP 4 mg IVP once; over 2 minutes Route: IVP; Site: right forearm; cp4 06:07 Follow up: Response: No adverse reaction cp4 06:14 Drug: metoCLOPramide IVP 10 mg IVP once; over 1 to 2 minutes Route: IVP; Site: right cp4 forearm; 06:37 Follow up: Response: No adverse reaction cp4 06:14 Drug: diphenhydrAMINE IVP 25 mg IVP once Route: IVP; Site: right forearm; cp4 06:37 Follow up: Response: No adverse reaction cp4 06:37 Drug: niCARdipine IV 5 mg/hr IV at calculated rate See Administration Instructions; cp4 (Standard concentration 25 mg / 250 mL NS); Recommended max rate 15 mg/hr; Titrate 2.5 mg/hr as often as every 15 minutes to achieve goal (see titration policy); Goal parameter SBP less than 160 mmHg Route: IV; Rate: calculated rate; Site: right forearm; 06:51 Follow up: Rate change 7.5 mg/hr cp4 07:15 Follow up: Rate change 5 mg/hr aa5 07:30 Follow up: IV Status: Infusion continued upon transfer aa5 Medication: 05:27 VIS not applicable for this client. cp4 Outcome: 06:36 ER care complete, transfer ordered by ms3 07:30 Transferred by helicopter to [facility], Transfer form completed. aa5 X-rays sent w/ patient. Note: Report given to [facility] 07:30 Condition: stable 07:30 Instructed on the need for transfer, Demonstrated understanding of instructions, 07:34 Patient left the ED. aa5 NIH Stroke Scale - NIH Stroke Score Date: 02/14/2025 Time: 07:00 Total Score = 0 10. Dysarthria (speech clarity - read or repeat words) - 0(Normal) 11. Extinction and Inattention (visual/tactile/auditory/spatial/personal) - 0(No abnormality) 1a. Level of Consciousness (LOC) - 0(Alert) 1b. Level of Consciousness (LOC) (Month \T\ Age) - 0(Both) 1c. LOC Commands (Open \T\ Closes Eyes/Asphalt Smoother) - 0(Both) 2. Best Gaze (Lateral Gaze Paresis) - 0(Normal) 3. Visual Field Loss - 0(No visual loss) 4. Facial Palsy - 0(Normal) 5a. Left Arm: Motor (10-second hold) - 0(No drift) 5b. Right Arm: Motor (10-second hold) - 0(No drift) 6a. Left Leg: Motor (5-second hold - always test supine) - 0(No drift) 6b. Right Leg: Motor (5-second hold - always test supine) - 0(No drift) 7. Limb Ataxia (finger/nose \T\ heel/chandler - test with eyes open) - 0(Absent) 8. Sensory Loss (pinprick arms/legs/face) - 0(Normal) 9. Best Language: Aphasia (description/naming/reading) - 0(No aphasia) Initials: cp4 NIH Stroke Scale - NIH Stroke Score Date: 02/14/2025 Time: 07:15 Total Score = 0 10. Dysarthria (speech clarity - read or repeat words) - 0(Normal) 11. Extinction and Inattention (visual/tactile/auditory/spatial/personal) - 0(No abnormality) 1a. Level of Consciousness (LOC) - 0(Alert) 1b. Level of Consciousness (LOC) (Month \T\ Age) - 0(Both) 1c. LOC Commands (Open \T\ Closes Eyes/Asphalt Smoother) - 0(Both) 2. Best Gaze (Lateral Gaze Paresis) - 0(Normal) 3. Visual Field Loss - 0(No visual loss) 4. Facial Palsy - 0(Normal) 5a. Left Arm: Motor (10-second hold) - 0(No drift) 5b. Right Arm: Motor (10-second hold) - 0(No drift) 6a. Left Leg: Motor (5-second hold - always test supine) - 0(No drift) 6b. Right Leg: Motor (5-second hold - always test supine) - 0(No drift) 7. Limb Ataxia (finger/nose \T\ heel/chandler - test with eyes open) - 0(Absent) 8. Sensory Loss (pinprick arms/legs/face) - 0(Normal) 9. Best Language: Aphasia (description/naming/reading) - 0(No aphasia) Initials: aa5 NIH Stroke Scale - NIH Stroke Score Date: 02/14/2025 Time: 07:30 Total Score = 0 10. Dysarthria (speech clarity - read or repeat words) - 0(Normal) 11. Extinction and Inattention (visual/tactile/auditory/spatial/personal) - 0(No abnormality) 1a. Level of Consciousness (LOC) - 0(Alert) 1b. Level of Consciousness (LOC) (Month \T\ Age) - 0(Both) 1c. LOC Commands (Open \T\ Closes Eyes/Asphalt Smoother) - 0(Both) 2. Best Gaze (Lateral Gaze Paresis) - 0(Normal) 3. Visual Field Loss - 0(No visual loss) 4. Facial Palsy - 0(Normal) 5a. Left Arm: Motor (10-second hold) - 0(No drift) 5b. Right Arm: Motor (10-second hold) - 0(No drift) 6a. Left Leg: Motor (5-second hold - always test supine) - 0(No drift) 6b. Right Leg: Motor (5-second hold - always test supine) - 0(No drift) 7. Limb Ataxia (finger/nose \T\ heel/chandler - test with eyes open) - 0(Absent) 8. Sensory Loss (pinprick arms/legs/face) - 0(Normal) 9. Best Language: Aphasia (description/naming/reading) - 0(No aphasia) Initials: aa5 Signatures: Dispatcher [employer] EDMS Patti Sandra Audri, RN RN aa5 Nickolas Lucero DO DO ms3 Ghada Purvis cp4 Aminata Tong gm2 Tanya Funes f Fannie Christianson rk3 Beata Rahman, RN RN tb4
--- NOTE | 2025-02-14 06:37 | EDPHYS ---
Physician Documentation [facility] Name: Nikita Bartlett Age: 49 yrs Sex: Male : 1975 Arrival Date: 02/14/2025 Time: 05:14 Bed 5 Private MD: ED Physician Nickolas Lucero HPI: 02/14 05:58 This 49 yrs old Male presents to ER via EMS with complaints of High Blood Pressure. ms3 05:58 49-year-old male with past medical history of anemia, diabetes, end-stage renal disease ms3 with dialysis on Tuesdays, , Saturdays, hypertension, osteomyelitis presents to the emergency department via [facility] for headache that began at 1 AM. Patient rates his discomfort 8. Patient states the pain is located behind his left eye. Patient states he took Tylenol without improvement of his symptoms. Patient denies nausea, vomiting.. Historical: - Allergies: 05:25 No Known Allergies; cp4 - PMHx: 05:25 Anemia; Diabetes - NIDDM; Dialysis; Enlarged Heart; Hypertension; osteomyelitis; cp4 - PSHx: 05:25 ulcer repair; cp4 07:16 Left arm dialysis fistula; aa5 - Immunization history:: Adult Immunizations up to date. - Infectious Disease History:: Denies. - Social history:: Smoking status: Patient denies any tobacco usage or history of. ROS: 05:58 Constitutional: Negative for fever, and chills. Cardiovascular: Negative for chest ms3 pain, and palpitations. Respiratory: Negative for shortness of breath, cough, wheezing, and pleuritic chest pain, Abdomen/GI: Negative for abdominal pain, nausea, vomiting, diarrhea, and constipation, MS/Extremity: Negative for injury and deformity, Skin: Negative for injury, rash, and discoloration, Exam: 05:57 ECG was reviewed by the Attending Physician. ms3 05:58 Constitutional: This is a well developed, well nourished patient who is awake, alert, ms3 and in no acute distress. Cardiovascular: Regular rate and rhythm with a normal S1 and S2. No gallops, murmurs, or rubs. Normal PMI, no JVD. No pulse deficits. Respiratory: Lungs have equal breath sounds bilaterally, clear to auscultation and percussion. No rales, rhonchi or wheezes noted. No increased work of breathing, no retractions or nasal flaring. Abdomen/GI: Soft, non-tender, with normal bowel sounds. No distension or tympany. No guarding or rebound. No evidence of tenderness throughout. Skin: Warm, dry with normal turgor. Normal color with no rashes, no lesions, and no evidence of cellulitis. 05:58 Neuro: Orientation: is normal, to person, place, time \T\ situation. Mentation: is normal, Memory: is normal, Cranial nerves: CN I not tested, CN II- XII are normal as tested, Cerebellar function: normal finger to nose testing, Motor: is normal, Sensation: is normal, Vital Signs: 05:22 BP 207 / 94; Pulse 70; Resp 18; Temp 98; Pulse Ox 99% ; Weight 111.3 kg; Height 5 ft. cp4 11 in. ; Pain 6/10; 05:41 BP 207 / 94; Pulse 99; Resp 20; Pulse Ox 98% on R/A; tb4 06:22 BP 199 / 92; Pulse 77; Resp 18; Pulse Ox 98% ; cp4 06:38 BP 189 / 100; Pulse 85; Resp 18; Pulse Ox 99% ; cp4 06:46 BP 185 / 83; Pulse 81; Resp 18; Pulse Ox 100% ; cp4 07:00 aa5 07:01 BP 158 / 84; Pulse 76; Resp 14 S; Pulse Ox 96% on R/A; aa5 07:15 BP 146 / 81; Pulse 76; Resp 16 S; Pulse Ox 98% on R/A; Pain 5/10; aa5 07:30 BP 140 / 77; Pulse 67; Resp 18 S; Pulse Ox 96% on R/A; aa5 05:22 Body Mass Index 34.22 (111.30 kg, 180.34 cm) cp4 05:22 Pain Scale: Adult cp4 07:15 Pain Scale: Adult aa5 07:00 Systolic BP goal per MD is 140s. aa5 NIH Stroke Scale Scores: 07:00 NIHSS Score: 0 cp4 07:15 NIHSS Score: 0 aa5 07:30 NIHSS Score: 0 aa5 MDM: 05:19 Medical Screening Exam initiated ms3 05:58 Differential diagnosis: hypertensive crisis, Malignant HTN, intracerebral hemorrhage. ms3 06:37 Data reviewed: vital signs, nurses notes, lab test result(s), EKG, radiologic studies, ms3 and as a result, I will transfer to higher level of care. Consideration of Admission/Observation Will transfer patient. Management of patient was discussed with the following: Called by Dr Moseley, Radiology, for intraparenchymal bleed. I considered the following discharge prescriptions or medication management in the emergency department Medications were administered in the Emergency Department. See MAR. Independent interpretation of the following test(s) in the Emergency Department EKG: See my EKG interpretation above. Counseling: I had a detailed discussion with the patient and/or guardian regarding the historical points, exam findings, and any diagnostic results supporting the discharge/admit diagnosis, lab results, radiology results, the need to transfer to another facility, for higher level of care. ED course: Discussed small area of bleeding with patient. Patient understands/ agrees to transfer. NIH 0. Patient with 1 episode of vomiting in the ED. [facility] transfer center contacted at 0629. 06:45 ED course: Discussed case with Dr Barry and he accepts patient to Neuro ICU at [facility]. ms3 07:05 ED course: [facility] gave 28 min ETA.. ms3 02/14 05:19 Order name: Basic Metabolic Panel; Complete Time: 06:11 ms3 02/14 05:19 Order name: CBC with Diff; Complete Time: 06:11 ms3 02/14 05:19 Order name: CT Head Brain wo Cont; Complete Time: 06:37 ms3 02/14 05:19 Order name: EKG - Nurse/Tech; Complete Time: 05:29 ms3 02/14 05:19 Order name: IV Saline Lock; Complete Time: 05:29 ms3 02/14 05:19 Order name: Labs collected and sent; Complete Time: 05:29 ms3 02/14 05:19 Order name: O2 Per Protocol; Complete Time: 05:29 ms3 02/14 05:19 Order name: O2 Sat Monitoring; Complete Time: 05:29 ms3 EC:57 Rate is 65 beats/min. Rhythm is regular. Left axis deviation noted. WV interval is ms3 normal. QRS interval is normal. Clinical impression: NSR w/ Non-specific ST/T Changes. Interpreted by me. Reviewed by me. Administered Medications: 05:41 Drug: hydrALAZINE IVP 10 mg IVP once Route: IVP; Site: right forearm; tb4 06:07 Follow up: Response: No adverse reaction cp4 06:06 Drug: Ondansetron IVP 4 mg IVP once; over 2 minutes Route: IVP; Site: right forearm; cp4 06:07 Follow up: Response: No adverse reaction cp4 06:14 Drug: metoCLOPramide IVP 10 mg IVP once; over 1 to 2 minutes Route: IVP; Site: right cp4 forearm; 06:37 Follow up: Response: No adverse reaction cp4 06:14 Drug: diphenhydrAMINE IVP 25 mg IVP once Route: IVP; Site: right forearm; cp4 06:37 Follow up: Response: No adverse reaction cp4 06:37 Drug: niCARdipine IV 5 mg/hr IV at calculated rate See Administration Instructions; cp4 (Standard concentration 25 mg / 250 mL NS); Recommended max rate 15 mg/hr; Titrate 2.5 mg/hr as often as every 15 minutes to achieve goal (see titration policy); Goal parameter SBP less than 160 mmHg Route: IV; Rate: calculated rate; Site: right forearm; 06:51 Follow up: Rate change 7.5 mg/hr cp4 07:15 Follow up: Rate change 5 mg/hr aa5 07:30 Follow up: IV Status: Infusion continued upon transfer aa5 Disposition Summary: 02/14/25 06:36 Transfer Ordered Notes: Transfer Location: [facility] ms3 Reason: Higher level of care ms3 Condition: Stable ms3 Problem: new ms3 Symptoms: are unchanged ms3 Accepting Physician: (02/14/25 07:34) aa5 Diagnosis - Intraparenchymal hemorrhage ms3 - Headache ms3 Discharge Instructions: - Discharge Summary Sheet ms3 Forms: - Medication Reconciliation Form ms3 Critical care time excluding procedures: 07:05 Critical care time: Bedside Care: 35 minutes, Consultation: 10 minutes, Family ms3 Intervention: 5 minutes. Total time: 50 minutes NIH Stroke Scale - NIH Stroke Score Date: 02/14/2025 Time: 07:00 Total Score = 0 10. Dysarthria (speech clarity - read or repeat words) - 0(Normal) 11. Extinction and Inattention (visual/tactile/auditory/spatial/personal) - 0(No abnormality) 1a. Level of Consciousness (LOC) - 0(Alert) 1b. Level of Consciousness (LOC) (Month \T\ Age) - 0(Both) 1c. LOC Commands (Open \T\ Closes Eyes/X Ray Technologist) - 0(Both) 2. Best Gaze (Lateral Gaze Paresis) - 0(Normal) 3. Visual Field Loss - 0(No visual loss) 4. Facial Palsy - 0(Normal) 5a. Left Arm: Motor (10-second hold) - 0(No drift) 5b. Right Arm: Motor (10-second hold) - 0(No drift) 6a. Left Leg: Motor (5-second hold - always test supine) - 0(No drift) 6b. Right Leg: Motor (5-second hold - always test supine) - 0(No drift) 7. Limb Ataxia (finger/nose \T\ heel/chandler - test with eyes open) - 0(Absent) 8. Sensory Loss (pinprick arms/legs/face) - 0(Normal) 9. Best Language: Aphasia (description/naming/reading) - 0(No aphasia) Initials: cp4 NIH Stroke Scale - NIH Stroke Score Date: 02/14/2025 Time: 07:15 Total Score = 0 10. Dysarthria (speech clarity - read or repeat words) - 0(Normal) 11. Extinction and Inattention (visual/tactile/auditory/spatial/personal) - 0(No abnormality) 1a. Level of Consciousness (LOC) - 0(Alert) 1b. Level of Consciousness (LOC) (Month \T\ Age) - 0(Both) 1c. LOC Commands (Open \T\ Closes Eyes/X Ray Technologist) - 0(Both) 2. Best Gaze (Lateral Gaze Paresis) - 0(Normal) 3. Visual Field Loss - 0(No visual loss) 4. Facial Palsy - 0(Normal) 5a. Left Arm: Motor (10-second hold) - 0(No drift) 5b. Right Arm: Motor (10-second hold) - 0(No drift) 6a. Left Leg: Motor (5-second hold - always test supine) - 0(No drift) 6b. Right Leg: Motor (5-second hold - always test supine) - 0(No drift) 7. Limb Ataxia (finger/nose \T\ heel/chandler - test with eyes open) - 0(Absent) 8. Sensory Loss (pinprick arms/legs/face) - 0(Normal) 9. Best Language: Aphasia (description/naming/reading) - 0(No aphasia) Initials: donal NIH Stroke Scale - NIH Stroke Score Date: 02/14/2025 Time: 07:30 Total Score = 0 10. Dysarthria (speech clarity - read or repeat words) - 0(Normal) 11. Extinction and Inattention (visual/tactile/auditory/spatial/personal) - 0(No abnormality) 1a. Level of Consciousness (LOC) - 0(Alert) 1b. Level of Consciousness (LOC) (Month \T\ Age) - 0(Both) 1c. LOC Commands (Open \T\ Closes Eyes/X Ray Technologist) - 0(Both) 2. Best Gaze (Lateral Gaze Paresis) - 0(Normal) 3. Visual Field Loss - 0(No visual loss) 4. Facial Palsy - 0(Normal) 5a. Left Arm: Motor (10-second hold) - 0(No drift) 5b. Right Arm: Motor (10-second hold) - 0(No drift) 6a. Left Leg: Motor (5-second hold - always test supine) - 0(No drift) 6b. Right Leg: Motor (5-second hold - always test supine) - 0(No drift) 7. Limb Ataxia (finger/nose \T\ heel/chandler - test with eyes open) - 0(Absent) 8. Sensory Loss (pinprick arms/legs/face) - 0(Normal) 9. Best Language: Aphasia (description/naming/reading) - 0(No aphasia) Initials: donal Signatures: Dispatcher [employer] Dari Wood, RN RN aa5 Nickolas Lucero DO DO ms3 Ghada Purvis cp4 Beata Rahman RN RN tb4 Corrections: (The following items were deleted from the chart) 07:34 06:36 Dr abe mansfield
[2025-02-14 08:14] VITALS: TEMP 98
[2025-02-14 08:21] VITALS: BP 146/81; O2SAT 98
== END 2025-02-14 07:34 | disposition short-term general hospital (02) ==
LOC: ER 05:14
DX: I61.8 Other nontraumatic intracerebral hemorrhage (principal); E11.22 Type 2 diabetes mellitus with diabetic chronic kidney disease; I12.0 Hypertensive chronic kidney disease with stage 5 chronic kidney disease or end stage renal disease; N18.6 End stage renal disease; Z99.2 Dependence on renal dialysis
CPT/HCPCS: 36415; 70450; 80048; 85025; 93005; 96365; 96375; 99285; J0360; J1200; J2405; J2765